=== PATIENT | male | born 1960 | race Caucasian/White ===

== ENCOUNTER 2023-07-21 16:15 | Outpatient (OUT) | payer OTHER, SELFPAY ==
[2023-07-21 18:09] LABS: Prostate Specific Antigen Dx 2.63 ng/mL (<=4.00)
== END 2023-07-21 16:16 | disposition home or self-care (01) ==
LOC: LAB 16:15
PROVIDERS: Visit Provider Urology
DX: N40.1 Benign prostatic hyperplasia with lower urinary tract symptoms (principal)
CPT/HCPCS: 36415; 84153

== ENCOUNTER 2023-09-11 16:00 | Outpatient (OUT) | payer OTHER, SELFPAY ==
[2023-09-11 17:13] LABS: Prostate Specific Antigen Dx 2.86 ng/mL (<=4.00)
== END 2023-09-11 16:01 | disposition home or self-care (01) ==
LOC: LAB 16:02
PROVIDERS: PCP Family Medicine; Visit Provider Nurse Practitioner Family
DX: R97.20 Elevated prostate specific antigen [PSA] (principal)
CPT/HCPCS: 36415; 84153

== ENCOUNTER 2023-12-08 16:05 | Outpatient (OUT) | payer OTHER, SELFPAY ==
--- OUTSIDE RECORDS SUMMARY | 2023-12-08 16:17 | XMS_ITS | CCD ---
Author Organization [facility] ion [facility] Care Team Providers Care 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 Name Role Phone Alejandro Umaña Primary Care Provider [phone] ADA IRWIN Referring Unavailable ALEJANDRO UMAÑA Primary Care Unavailable Alejandro Umaña Primary Care Provider ANGELIQUE ., DR ALVAREZ Admitting Unavailable ANGELIQUE ., DR ALVAREZ Attending Unavailable ANGELIQUE ., DR ALVAREZ Consulting Unavailable ALEJANDRO UMAÑA Attending Unavailable ALEJANDRO UMAÑA Referring Unavailable ALEJANDRO UMAÑA Primary Care Unavailable ALEJANDRO UMAÑA Primary Care Unavailable CHIRRI, JJ Consulting Unavailable SHAY, DIEUDONNE T Admitting Unavailable SHAY, DIEUDONNE T Attending Unavailable SHAY, DIEUDONNE T Consulting Unavailable AFRIDI, FRANSICOAMMAD GEOVANI Consulting Unavaila Chani Herrera Primary Care Provider MD Kim Ortiz Attending Provider MD Alejandro Umaña Primary Care Provider Alejandro Umaña Primary Care Unavailable Kim Otriz Attending Unavailable Kim Ortiz Admitting Unavailable LIVINGOOD, CHANI M Attending Unavailable LIVINGOOD, CHANI M Referring Unavailable LIVINGOOD, CHANI M Primary Care Unavailable CHAS LYNCH Attending Unavailable LIVINGOOD, CHANI M Referring Unavailable LIVINGOOD, CHANI M Primary Care Unavailable LIVINGOOD, CHANI M Attending Unavailable LIVINGOOD, CHANI M Referring Unavailable LIVINGOOD, CHANI M Primary Care Unavailable LIVINGOOD, CHANI M Attending Unavailable LIVINGOOD, CHANI M Referring Unavailable LIVINGOOD, CHANI M Primary Care Unavailable LIVINGOOD, CHANI M Attending Unavailable LIVINGOOD, CHANI M Referring Unavailable LIVINGOOD, CHANI M Primary Care Unavailable Kim ORTIZ Attending Unavailable ARLEN SOUZA Attending Unavailable Allergies Allergy Classification Reported Allergen(s) Allergy Type Date of Onset Reaction(s) Facility (7 sources) MITE EXTRACT Drug Allergy 07-19-2015 [place], [place] (2 sources) house dust allergenic extract; Translations: [HOUSE DUST] Drug Allergy 09-04-2023 [facility] Medications Current Medications Medication Drug Class(es) Dates Sig (Normalized) Sig (Original) [id number] 200 actuat albuterol 0.09 mg/actuat metered dose inhaler (7 sources) beta2-Adrenergic Agonist Start: 06-19-2016 albuterol sulfate HFA (PROAIR HFA) 108 (90 BASE) MCG/ACT inhaler 2 PUFFS QID FOR 7 DAYS THEN PRN 1 Inhaler 0 06/19/2016 Active Start: 06-19-2016 albuterol sulf ate HFA (PROAIR HFA) 108 (90 BASE) MCG/ACT inhaler 2 PUFFS QID FOR 7 DAYS THEN PRN 1 Inhaler 0 06/19/2016 Active ascorbic acid 60 mg / beta carotene 5000 unt / copper sulfate 40 mg / dl-alpha tocopheryl acetate 30 unt / sodium selenite 0.04 mg / zinc oxide 40 mg oral tablet (1 source) Vitamin C take 1 tablet by mouth once daily Multiple Vitamins-Minerals (THERAPEUTIC MULTIVITAMIN-MINERALS) tablet Take 1 tablet by mouth daily 0 Active aspirin 81 mg delayed release oral tablet (3 sources) Platelet Aggregation Inhibitor, Nonsteroidal Anti-inflammatory Drug take 1 tablet by mouth in the morning aspirin 81 mg Take 1 tablet (81 mg total) by mouth in the morning. 0 Active atorvastatin 10 mg oral tablet (1 source) HMG-CoA Reductase Inhibitor take 1 tablet by mouth once daily atorvastatin (LIPITOR) 10 MG tablet Take 10 mg by mouth daily 0 Active blood-glucose meter,continuous (DEXCOM G6 LEATHER SORTER) misc (3 sources) Start: 2022 blood-glucose meter,continuous (DEXCOM G6 LEATHER SORTER) misc Indications: Diabetes mellitus type 1, controlled, insulin dependent (CMS-HCC) 1 Device by miscellaneous route continuously. 1 each 0 09/17/2022 Active blood-glucose sensor (DEXCOM G6 SENSOR) device (3 sources) Start: 2022 blood-glucose sensor (DEXCOM G6 SENSOR) device Indications: Diabetes mellitus type 1, controlled, insulin dependent ([facility]) 1 each by miscellaneous route every 10 days. 10 each 4 09/17/2022 Active blood-glucose transmitter (DEXCOM G6 TRANSMITTER) device (3 sources) Start: 2022 blood-glucose transmitter (DEXCOM G6 TRANSMITTER) device Indications: Diabetes mellitus type 1, controlled, insulin dependent ([facility]) 1 Device by miscellaneous route every 3 (three) months. 1 each 4 09/17/2022 Active chondroitin sulfates 400 mg / glucosamine hydrochloride 500 mg oral capsule (10 sources) glucosamine-magdaleno droitin 500-400 mg capsule Take by mouth. 0 Active Glucosamine-Magdaleno droitin (GLUCOSAMINE CHONDR COMPLEX PO) Take by mouth 0 Active clobetasol propionate 0.0005 mg/mg topical ointment (3 sources) Corticosteroid Start: 07-10-2023 clobetasoL (TEMOVATE) 0.05 % ointment Indications: 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 Apply 1 Application topically in the morning and 1 Application before bedtime. Max 14 days at one interval. 30 g 0 07/10/2023 Active docusate sodium 100 mg oral capsule (6 sources) Start: 09-11-2019 take 1 capsule by mouth twice daily docusate sodium (COLACE) 100 MG capsule Take 1 capsule by mouth 2 times daily 30 capsule 0 09/11/2019 Active 12 hr guaiFENesin 600 mg extended release oral tablet (7 sources) Start: 08-08-2016 take 2 tablets by mouth twice daily guaiFENesin (MUCINEX) 600 MG extended release tablet Take 2 tablets by mouth 2 times daily 40 tablet 0 08/08/2016 Active 3 ml insulin aspart, human 100 unt/ml pen injector (3 sources) Insulin Analog Start: 04-13-2023 inject 30 [IU] by subcutaneous injection once daily at mealtime NovoLOG FlexPen U-100 Insulin 100 unit/mL (3 mL) insulin pen Indications: Type 1 diabetes mellitus with hyperglycemia ([facility]) INJECT 3-7 UNITS UNDER THE SKIN 4 (FOUR) TIMES A DAY WITH MEALS AND NIGHTLY. CARB COUNTING 1-2 UNITS FOR SNACKS. MAX 30 UNITS PER DAY 30 mL 4 04/13/2023 Active 3 ml insulin degludec 100 unt/ml pen injector (1 source) Insulin Analog Start: 09-04-2023 insulin degludec (TRESIBA FLEXTOUCH U-100) 100 unit/mL (3 mL) insulin pen Indications: Diabetes mellitus type 1, controlled, insulin dependent ([facility]) Inject 16 Units under the skin in the morning. 6 mL 0 09/04/2023 Active 3 ml insulin lispro 100 unt/ml pen injector (4 sources) Insulin Analog insulin lispro (HUMALOG KWIKPEN) 100 UNIT/ML pen Inject into the skin 3 times daily (before meals) Sliding scale 150-200: 2 units 201-250: 4 units 251-300: 6 units 301-350: 8 units 351-400: 10 units BS 400 Call 0 Active insulin lispro (HUMALOG KWIKPEN) 100 UNIT/ML pen (3 sources) insulin lispro (HUMALOG KWIKPEN) 100 UNIT/ML pen Inject into the skin 3 times daily (before meals) Sliding scale 150-200: 2 units 201-250: 4 units 251-300: 6 units 301-350: 8 units 351-400: 10 units BS 400 Call 0 Active loratadine 10 mg oral tablet (10 sources) loratadine (CLARITIN) 10 mg tablet Take 1 tablet (10 mg total) by mouth. 0 Active Multiple Vitamins-Minerals (THERAPEUTIC MULTIVITAMIN-HEALTH SAFETY INSTRUCTOR ALS) tablet (6 sources) take 1 tablet by mouth once daily Multiple Vitamins-Minerals (THERAPEUTIC MULTIVITAMIN-MINE RALS) tablet Take 1 tablet by mouth daily 0 Active Multivitamin preparation (3 sources) MULTIVITAMIN (MULTIPLE VITAMINS ORAL) Take by mouth. 0 Active tamsulosin hydrochloride 0.4 mg oral capsule (7 sources) alpha-Adrenergic Jen Start: 09-03-2019 take 1 capsule by mouth once daily tamsulosin (FLOMAX) 0.4 MG capsule Take 1 capsule by mouth daily 30 capsule 0 09/03/2019 Active Completed/Discontinued Medications Medication Drug Class(es) Dates Sig (Normalized) Sig (Original) 3 ml insulin glargine 100 unt/ml pen injector (10 sources) Insulin Analog Start: 11-14-2022 inject 10 [IU] by subcutaneous injection at bedtime insulin glargine (BASAGLAR KWIKPEN U-100 INSULIN) 100 unit/mL (3 mL) insulin pen Indications: Type 1 diabetes mellitus with hyperglycemia ([facility]) Inject 10 Units under the skin in the morning and at bedtime. 15 mL 4 11/14/2022 Active Start: 11-14-2022 End: 09-04-2023 inject 10 [IU] by subcutaneous injection at bedtime insulin glargine (BASAGLAR KWIKPEN U-100 INSULIN) 100 unit/mL (3 mL) insulin pen Indications: Type 1 diabetes mellitus with hyperglycemia ([facility]) Inject 10 Units under the skin in the morning and at bedtime. 15 mL 4 11/14/2022 09/04/2023 Discontinued insulin glargine (BASAGLAR KWIKPEN) 100 UNIT/ML injection pen Inject 10 Units into the skin nightly (8 units in the am, 10 units at night- entered separately for accuracy) 0 Active ioversol (OPTIRAY) 74 % injection 75 mL (1 source) Start: 09-11-2019 End: 09-11-2019 ioversol (OPTIRAY) 74 % injection 75 mL 1 ml ketorolac tromethamine 30 mg/ml cartridge (1 source) Nonsteroidal Anti-inflammatory Drug, Cyclooxygenase Inhibitor Start: 09-03-2019 End: 09-03-2019 ketorolac (TORADOL) injection 30 mg 1000 ml sodium chloride 9 mg/ml injection (5 sources) Start: 10-30-2021 End: 10-30-2021 0.9 % sodium chloride infusion Start: 09-11-2019 sodium chlorid e flush 0.9 % injection 10 mL Start: 09-11-2019 End: 09-11-2019 0.9 % sodium chloride bolus Start: 09-03-2019 End: 09-03-2019 0.9 % sodium chloride bolus Problems Active Problems Problem Classification Problem Date Documented Da te Episodic/Chronic Abdominal pain (1 source) Right lower quadrant pain; Translations: [Abdominal pain, right lower quadrant] Episodic Complications of surgical procedures or medical care (1 source) Vascular complications following infusion, transfusion and therapeutic injection, initial encounter; Translations: [Vascular complications following infusion, transfusion and therapeutic injection, initial encounter] Onset: 3 Episodic Conditions associated with dizziness or vertigo (1 source) Dizziness and giddiness; Translations: [Dizziness and giddiness] Onset: 3 Episodic Diabetes mellitus with complications (3 sources) Hyperglycemia due to type 1 diabetes mellitus; Translations: [Type 1 diabetes mellitus with hyperglycemia] Onset: 3 07-30-2022 Chronic Diabetes mellitus without complication (13 sources) Latent autoimmune diabetes mellitus in adult; Translations: [Other specified diabetes mellitus without complications] Onset: 7 11-27-2016 Chronic Disorders of lipid metabolism (5 sources) Mixed hyperlipidemia; Translations: [Mixed hyperlipidemia] Onset: 3 07-30-2022 Chronic Genitourinary symptoms and ill-defined conditions (1 source) Retention of urine; Translations: [Urinary retention] Episodic Headache; including migraine (1 source) Other headache syndrome; Translations: [Other headache syndrome] Onset: 3 Episodic Hyperplasia of prostate (4 sources) Benign prostatic hyperplasia with lower urinary tract symptoms; Translations: [BENIGN PROSTATIC HYPERPLASIA W/LUTS] Onset: 3 Chronic Occlusion or stenosis of precerebral arteries (3 sources) Stenosis of left vertebral artery; Translations: [Occlusion and stenosis of left vertebral artery] Onset: 3 02-13-2023 Chronic Other ear and sense organ disorders (1 source) Otalgia, right ear; Translations: [Otalgia, right ear] Onset: 4 Episodic Other gastrointestinal disorders (1 source) Constipation; Translations: [Constipation, unspecified constipation type] Episodic Other hereditary and degenerative nervous system conditions (7 sources) Carotidynia; 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] Onset: 6 12-15-2015 Chronic Other screening for suspected conditions (not mental disorders or infectious disease) (1 source) Elevated prostate specific antigen [PSA]; Translations: [Elevated prostate specific antigen [PSA]] Onset: 4 Episodic Phlebitis; thrombophlebitis and thromboembolism (1 source) Phlebitis and thrombophlebitis of unspecified site; Translations: [Phlebitis and thrombophlebitis of unspecified site] Onset: 3 Episodic Superficial injury; contusion (1 source) Abrasion of lower limb; Translations: [Abrasion of left lower extremity, initial encounter] Episodic Unclassified (1 source) Earache Onset: 4 Unclassified (1 source) Medication Reaction Onset: 4 Past or Other Problems Problem Classification Problem Date Documented Da te Episodic/Chronic Allergic reactions (2 sources) 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; Translations: [Other allergy, initial encounter] Onset: 07-10-2023 07-10-2023 Episodic Other ear and sense organ disorders (7 sources) Referred otalgia; Translations: [Otalgia, unspecified ear] Onset: 01-25-2016 01-25-2016 Episodic Other lower respiratory disease (7 sources) Hemoptysis; Translations: [Hemoptysis] Onset: 08-07-2016 08-07-2016 Episodic Other non-traumatic joint disorders (7 sources) Pain in wrist; Translations: [Pain in unspecified wrist] Onset: 08-09-2015 08-09-2015 Episodic Other upper respiratory disease (7 sources) Bronchospasm; Translations: [Acute bronchospasm] Onset: 06-19-2016 06-19-2016 Episodic Other upper respiratory infections (10 sources) Recurrent acute sinusitis; Translations: [Acute recurrent maxillary sinusitis] Onset: 08-09-2015 Resolved: 09-17-2022 08-09-2015 Episodic Pneumonia (except that caused by tuberculosis or sexually transmitted disease) (7 sources) Infective pneumonia; Translations: [Pneumonia, unspecified organism] Onset: 08-07-2016 08-07-2016 Episodic Results Test Name Value Interpretation Reference Range Facility Auth for Release of Medical Recordson 10-21-2023 Auth for Release of Medical Records [id number]# 1.00TIFF [facility] MR prostate wo/w conon 10-06 MR prostate wo/w con [facility] [place] [address] MRI Report Signed Patient: Sd Cardozo MR#: [id number] 68 : 1960 Acct:[id number] Age/Sex: 63 / M ADM Date: 10/03/23 Loc: MR Room: Type: [facility] Attending Dr: Kim Ortiz MD Copies to: Kim Ortiz MD Ordering Provider: Kim Ortiz MD Date of Service: 10/03/23 MR/MR prostate wo/w con: R97.20 EXAMINATION: MR prostate wo/w con HISTORY: Elevated PSA COMPARISON: NONE TECHNIQUE: Multiparametric imaging of the prostate gland was performed with IV contrast. FINDINGS: Prostate Dimensions: 4.1 x 3.6 x 4.0 cm Prostate Volume: 31 mL Peripheral Zone: Heterogenous inT2 signal suggestive of prior prostatitis. No suspicious T2 or ADC map abnormality is identified to suggest prostate malignancy. Central/Transitional Zone: BPH changes. Seminal Vesicles: Unremarkable Neurovascular bundles: Unremarkable. Lymphadenopathy: No evidence of lymphadenopathy. Bladder: No focal lesion. Bowel: The visualized bowel is without acute abnormality. Peritoneal Cavity: Trace free fluid. Bones: No suspicious bony lesion. MR/MR prostate wo/w con IMPRESSION: No MRI evidence of clinically significant prostate cancer. Trace free fluid of uncertain etiology. Impression dictated by: Tc Jurado Jr., D.OTian10/07/2023 9:12 AM Dictation Location: RADIO-PC-15 Transcribed By: [facility] 10/07/23911 Dictated By: Tc Jurado Jr, DO 10/07/23908 Signed By: 10/07/23911 Normal [facility] RAD - MRI Reporton RAD - MRI Report [id number] #1.00TIFF Normal [facility] Creatinine (Bld) [Mass/Vol]O rdered By: Kim Ortiz on 10-03-2023 Creatinine [Mass/Vol] 0.9 mg/dL 0.6-1.3 [facility] Comment on above: ER/ESD physician is notified/shown all ISTAT results.Critical values may be confirmed by laboratory testing ifdeemed necessary by ER attending doctor. ISTAT XRay CREon 10-03-2023 Creatinine [Mass/Vol] 0.9 mg/dL Normal 0.6-1.3 [facility] Comment on above: Result Comment: ER/E SD physician is notified/shown all ISTAT results. Critical values may be confirmed by laboratory testing if deemed necessary by ER attending doctor. Performed By: #### I SCRE #### [address] ISTAT GFR > 60.0 Normal [facility] Comment on above: Result Comment: PERF ORMED BY: [place] [address] PATHOLOGIST DOWEL POINTER JDAA SHAHID M.D. Performed By: #### I SCRE #### [facility] [address] No Panel InformationOrdered By: Kim Ortiz on 10-03-2023 Bedside Estimated GFR (eGFR) > 60.0 [facility] Lab Reportson 09-15-2023 Lab Reports [id number] #1.00TIFF [facility] Physician Referralon 024 Physician Referral [id number] #1.00TIFF [facility] Pre-Certification Formon Pre-Certification Form [id number] #1.00TIFF [facility] Insurance Correspondenceon 0 09-09-2023 Insurance Correspondence [id number] #1.00TIFF [facility] POCT Hemoglobin A1con 2023 HbA1c (Bld) [Mass fraction] 6.8 g/dL 4 - 7 g/dL [facility] Lab Reportson 07-23-2023 Lab Reports [id number] #1.00TIFF [facility] Screenson 07-23-2023 Screens [id number] 1#1.00TIFF [facility] Screens [id number] 0#1.00TIFF [facility] Ambulatory Visit Summaryon 0 07-22-2023 Ambulatory Visit Summary [place] CARDOZO :1960 Visit Date:07/22/2023 Ambulatory Visit Instructions Your Diagnosis Elevated PSA Prostatitis BPH with urinary obstruction Your Care Team Attending Physician - HARLEY GLYNN, ARLEN Olson Primary Care Physician - SHERINE LUNDBERG, ALEJANDRO M This Is Your Medications List sulfamethoxazole-tri methoprim (Bactrim D.S. 800 mg-160 mg Tab) Contact prescribing physician if questions or concerns atorvastatin (atorvastatin 10 mg Tab) glucosamine insulin aspart (NovoLOG FlexPen 100 units/mL injectable solution) insulin glargine (Basaglar KwikPen) multivitamin (Multi Vitamin+) Procedures Performed Cystoscopy (05/18/2009), Colonoscopy. Discharge Vitals Heart Rate (Peripheral) 74 Respiratory Rate 16 Blood Pressure 136/74 Height 178 cm Height 70 in Weight 71 kg Weight 156.2 lb BMI 22.41 What to do next You Need to Schedule the Following Appointments Follow Up with ARLEN SOUZA PA-C, URL When: Where: [address] [place] [address] Medications What How Much When Instructions New sulfamethoxazole-tri methoprim (Bactrim D.S. 800 mg-160 mg Tab) 1 Tablets By Mouth 2 times a day Pickup at [facility] #[id number] Unchanged atorvastatin (atorvastatin 10 mg Tab) Contact prescribing physician if questions or concerns Unchanged glucosamine By Mouth Contact prescribing physician if questions or concerns Unchanged insulin aspart (NovoLOG FlexPen 100 units/ mL injectable solution) Contact prescribing physician if questions or concerns Unchanged insulin glargine (Basaglar KwikPen) Subcutaneous Every day Contact prescribing physician if questions or concerns Unchanged multivitamin (Multi Vitamin+) Contact prescribing physician if questions or concerns Pharmacy Information [facility] #[id number]: [address] [place], [place] [id number] [phone] Allergies No Known Allergies Problems Ongoing - Any problem that you are currently receiving treatment for. BPH with urinary obstruction Diabetes Elevated PSA Prostatitis Patient Survey You may receive a survey via text or e-mail asking about your office visit. Please share your experience with us by completing your survey. We appreciate your feedback and thank you for choosing us for your care. Education Materials Prostatitis Prostatitis is swelling or inflammation of the prostate gland, also called the prostate. This gland is about 1.5 inches wide and 1 inch high, and it is involved in making semen. The prostate is located below a man's bladder, in front of the rectum. There are four types of prostatitis: ? Chronic prostatitis (CP), also called chronic pelvic pain syndrome (CPPS). This is the most common type of prostatitis. It is associated with increased muscle tone in the area between the hip bones (pelvic area), around the prostate. This type is also known as a pelvic floor disorder. ? Chronic bacterial prostatitis. This type usually results from an acute bacterial infection in the prostate gland that keeps coming back or has not been treated properly. The symptoms are less severe than those caused by acute bacterial prostatitis, which lasts a shorter time. ? Asymptomatic inflammatory prostatitis. This type does not have symptoms and does not need treatment. This is diagnosed when tests are done for other disorders of the urinary tract or reproductive tract. ? Acute bacterial prostatitis. This type starts quickly and results from an acute bacterial infection in the prostate gland. It is usually associated with a bladder infection, high fever, and chills. This is the least common type of prostatitis. What are the causes? Bacterial prostatitis is caused by an infection from bacteria. Chronic nonbacterial prostatitis may be caused by: ? Factors related to the nervous system. This system includes thebrain, spinal cord, and nerves. ? An autoimmune response. This happens when the body's disease-fighting system attacks healthy tissue in the body by mistake. ? Psychological factors. These have to do with how the mind works. The causes of the other types of prostatitis are usually not known. What are the signs or symptoms? Symptoms of this condition depend on the type of prostatitis you have. Acute bacterial prostatitis Symptoms may include: ? Pain or burning during urination. ? Frequent and sudden urges to urinate. ? Trouble starting to urinate. ? Fever. ? Chills. ? Pain in your muscles or joints, lower back, or lower abdomen. Other types of prostatitis Symptoms may include: ? Sudden urges to urinate, or urinating often. ? Trouble starting to urinate. ? Weak urine stream. ? Dribbling after urination. ? Discharge coming from the penis. ? Pain in the testicles, the penis, or the tip of the penis. ? Pain in the area in front of the rectum and below the scrotum (perineum). ? Pain when ejacul (more content not included)... Normal [facility] Lab Reportson 07-22-2023 Lab Reports [id number] #1.00TIFF [facility] W[facility] Patient Educationon 07-22-19 24 Patient Education Infectious Disease Prostatitis Prostatitis is swelling or inflammation of the prostate gland, also called the prostate. This gland is about 1.5 inches wide and 1 inch high, and it is involved in making semen. The prostate is located below a man's bladder, in front of the rectum. There are four types of prostatitis: ? Chronic prostatitis (CP), also called chronic pelvic pain syndrome (CPPS). This is the most common type of prostatitis. It is associated with increased muscle tone in the area between the hip bones (pelvic area), around the prostate. This type is also known as a pelvic floor disorder. ? Chronic bacterial prostatitis. This type usually results from an acute bacterial infection in the prostate gland that keeps coming back or has not been treated properly. The symptoms are less severe than those caused by acute bacterial prostatitis, which lasts a shorter time. ? Asymptomatic inflammatory prostatitis. This type does not have symptoms and does not need treatment. This is diagnosed when tests are done for other disorders of the urinary tract or reproductive tract. ? Acute bacterial prostatitis. This type starts quickly and results from an acute bacterial infection in the prostate gland. It is usually associated with a bladder infection, high fever, and chills. This is the least common type of prostatitis. What are the causes? Bacterial prostatitis is caused by an infection from bacteria. Chronic nonbacterial prostatitis may be caused by: ? Factors related to the nervous system. This system includes thebrain, spinal cord, and nerves. ? An autoimmune response. This happens when the body's disease-fighting system attacks healthy tissue in the body by mistake. ? Psychological factors. These have to do with how the mind works. The causes of the other types of prostatitis are usually not known. What are the signs or symptoms? Symptoms of this condition depend on the type of prostatitis you have. Acute bacterial prostatitis Symptoms may include: ? Pain or burning during urination. ? Frequent and sudden urges to urinate. ? Trouble starting to urinate. ? Fever. ? Chills. ? Pain in your muscles or joints, lower back, or lower abdomen. Other types of prostatitis Symptoms may include: ? Sudden urges to urinate, or urinating often. ? Trouble starting to urinate. ? Weak urine stream. ? Dribbling after urination. ? Discharge coming from the penis. ? Pain in the testicles, the penis, or the tip of the penis. ? Pain in the area in front of the rectum and below the scrotum (perineum). ? Pain when ejaculating. How is this diagnosed? This condition may be diagnosed based on: ? A physical and medical exam. ? A digital rectal exam. For this, the health care provider may use a finger to feel the prostate. ? A urine test to check for bacteria. ? A semen sample or blood tests. ? Ultrasound. ? Urodynamic tests to check how your body handles urine. ? Cystoscopy to look inside your bladder or inside the part of your body that drains urine from the bladder (urethra). How is this treated? Treatment for this condition depends on the type of prostatitis. Treatment may involve: ? Medicines to relieve pain or inflammation, or to help relax your muscles. ? Physical therapy. ? Heat therapy. ? Biofeedback. These techniques help you control certain body functions. ? Relaxation exercises. ? Antibiotic medicine, if your condition is caused by bacteria. ? Sitz baths. These warm water baths help to relax your pelvic floor muscles, which helps to relieve pressure on the prostate. Follow these instructions at home: Medicines ? Take jlkw-pbh-spwumvl and prescription medicines only as told by your health care provider. ? If you were prescribed an antibiotic medicine, take it as told by your health care provider. Do not stop using the antibiotic even if you start to feel better. Managing pain and swelling ? Take sitz baths as directed by your health care provider. For a sitz bath, sit in warm water that is deep enough to cover your hips and buttocks. ? If directed, apply heat to the affected area as often as told by your health care provider. Use the heat source that your health care provider recommends, such as a moist heat pack or a heating pad. ? Place a towel between your skin and the heat source. ? Leave the heat on for 20?30 minutes. ? Remove the heat if your skin turns bright red. This is especially important if you are unable to feel pain, heat, or cold. You may have a greater risk of getting burned. General instructions ? Do exercises as told by your health care provider, if you were prescribed physical therapy, biofeedback, or relaxation exercises. ? Keep all follow-up visits as told by your health care provider. This is important. Where to find more information ? National [place] of Diabetes and Digestive and Kidney Diseases: (more content not included)... Normal [facility] Urology Office/Clinic Noteon 07-22-2023 Urology Office/Clinic Note Chief Complaint 1 year with PSA HPI Staff 63 yea old male here for 1 year with PSA. Previous DX: BPH w/LUTS. PSA 2.63 done 07/21/23, previous PSA 1.91 done 08/06/22. Pt. was not able to give a urine sample today. Dysuria: no Incomplete bladder emptying: no Hematuria: no Frequency: no Urgency: no Nocturia:2x's Stream: good stream Post void dripping: no Wearing pads/ Depends: no Urge incontinence: no Stress incontinence: no Incontinence without Sensory Awareness: o Abdominal pain: no Flank pain: no History of Present Illness staff HPI reviewed and agree. Review of Systems PHQ Score Initial Depression Screen Score: 0 SCORE no fever, chills, malaise, myalgia. no rash/lesions. no chest pain, palpitations, or SOB. no abdominal pain, nausea, vomiting. no unilateral calf swelling, redness, pain Physical Exam Vitals & Measurements HR: 74(Peripheral) RR: 16 BP: 136/74 HT: 70 in HT: 178 cm WT: 71 kg WT: 156.2 lb BMI: 22.41 General: nontoxic, NAD Mouth: moist mucosa Lungs: normal respiratory effort Cardio: regular rate, good distal perfusion Abdomen: nondistended, no suprapubic distention or tenderness, no CVA tenderness Neurologic: Grossly normal Skin: No rashes or suspicious lesions Assessment/Plan Dr. Ortiz pt Labs 06/06/23: Cr 0.96 eGFR 90 DAYNA 19 1. Elevated PSA (R97.20: Elevated prostate specific antigen [PSA]) PSA: 11/05/19 - 1.74 06/12/21 - 1.90 08/06/22 - 1.91 07/21/23 - 2.63 He has an elevated PSA, which could indicate prostate cancer, prostate infection, prostate inflammation without infection, prostate manipulation, or benign prostate enlargement (BPH). The importance of the rate of PSA rise has also been discussed. The options for management have been discussed, including prostate biopsy versus close monitoring of the PSA over time. Denies family hx of prostate cancer. Rise in PSA is unfavorable. -2 wks abx in case of subclinical infection. then repeat PSA in 6 wks. -Further workup will be indicated if PSA remains elevated following abx course (repeat PSA in 3 mos vs prostate MRI/select MDX now). If PSA goes down, then can either repeat in 6 or 12 mos. Call pt w results and plan. 2. Prostatitis (N41.9: Inflammatory disease of prostate, unspecified) No UA provided today. Asymptomatic. Rise in PSA could be due to prostatitis/inflamma tory changes. Will prescribe a short course of abx and repeat PSA within 6 weeks. -Start Bactrim DS bid x 2 weeks -Take w/ food and start a probiotic -see #1 3. BPH with urinary obstruction (N40.1: Benign prostatic hyperplasia with lower urinary tract symptoms) No UA provided today. Pt previously d/c Flomax due to SE of lip tingling. IPSS 3, QoL 0. No urinary concerns. Pt is currently taking no bladder/prostate medication and is highly satisfied with overall symptom control. No indication for treatment at this time. Continue to monitor. Follow-up With When Contact Information HARLEY GLYNN, ARLEN Olson, URL [address] [place] [address] Additional Instructions: Follow up pending PSA Patient Education Prostatitis Documentation recorded by the moi Daley accurately reflects the services(s) I performed and decisions made by me. Authenticated by Arlen Souza PA-C on 07/22/2023 15:44:43. Joy Rome, personally scribed for Arlen Souza PA-C on 07/22/2023 15:31:58. . Problem List/Past Medical History Ongoing BPH with urinary obstruction Diabetes Elevated PSA Prostatitis Historical No qualifying data Procedure/Surgical History Cystoscopy (05/18/2009), Colonoscopy. Medications atorvastatin 10 mg Tab Basaglar KwikPen, SubCutaneous, Daily glucosamine, Oral Multi Vitamin+ NovoLOG FlexPen 100 units/mL injectable solution Allergies No Known Allergies Social History Tobacco Never (less than 100 in lifetime) Tobacco Use:., 07/22/2023 Family History Hypertension: Mother and Brother. Immunizations Vaccine Date Status influenza virus vaccine, inactivated 04/2023 Recorded SARS-CoV-2 (COVID-19) Ad26 vaccine 03/2021 Recorded SARS-CoV-2 (COVID-19) Ad26 vaccine 08/2020 Recorded Normal [facility] Comment on above: Result Comment: Elec tronically Signed By: ARLEN SOUZA PA-C\.br\Date and Time Signed: 07/22/23 15:46 EST\.br\Electronically Co-Signed By: Joy Daley\.br\Date and Time Co-Signed: 07/22/23 15:32 EST Basic Metabolic Profon 11-26 Anion gap [Moles/Vol] 10 mmol/L Normal 9-17 [facility] Comment on above: Performed By: #### EMILE MURRAY, CBC #### [facility] [place] [address] Dental Laboratory Technology Teacher: Edgardo Hutchins DO Calcium [Mass/Vol] 8.9 mg/dL Normal 8.6-10.4 [facility] Comment on above: Performed By: #### EMILE MURRAY, CBC #### [facility] [address] [place] [address] Dental Laboratory Technology Teacher: Edgardo Hutchins DO Chloride [Moles/Vol] 105 mmol/L Normal 98-107 [facility] Comment on above: Performed By: #### EMILE MURRAY, CBC #### [facility] [address] [place] [address] Dental Laboratory Technology Teacher: Edgardo Hutchins DO CO2 [Moles/Vol] 26 mmol/L Normal 20-31 [facility] Comment on above: Performed By: #### EMILE MURRAY, CBC #### [facility] [address] [place] [address], [place] [address] Dental Laboratory Technology Teacher: Edgardo Hutchins DO Creatinine [Mass/Vol] 0.82 mg/dL Normal 0.70-1.20 [facility] Comment on above: Performed By: #### EMILE MURRAY, CBC #### [facility] [address] [place] [address]. [place] [address] Dental Laboratory Technology Teacher: Edgardo Hutchins DO GFR/1.73 sq M.predicted among non-blacks MDRD (S/P/Bld) [Vol rate/Area] mL/min/{1.73_m2} Normal >60 [facility] Comment on above: Result Comment: These results are not intended for use in patients <18 years of age. eGFR results are calculated without a race factor using the 2020 CKD-EPI equation. Careful clinical correlation is recommended, particularly when comparing to results calculated using previous equations. The CKD-EPI equation is less accurate in patients with extremes of muscle mass, extra-renal metabolism of creatine, excessive creatine ingestion, or following therapy that affects renal tubular secretion. Performed By: #### EMILE MURRAY, CBC #### [facility] [address] [place] [address]. [place] [address] Dental Laboratory Technology Teacher: Edgardo Hutchins DO Glucose [Mass/Vol] 190 mg/dL High 70-99 [facility] Comment on above: Performed By: #### EMILE MURRAY, CBC #### [facility] [address] [place] [address]. [place] [address] Dental Laboratory Technology Teacher: Edgardo Hutchins DO Potassium [Moles/Vol] 4.2 mmol/L Normal 3.7-5.3 [facility] Comment on above: Performed By: #### EMILE MURRAY, CBC #### [facility] [address] [place] [address]. [place] [address] Dental Laboratory Technology Teacher: Edgardo Hutchins DO Sodium [Moles/Vol] 141 mmol/L Normal 135-144 [facility] Comment on above: Performed By: #### EMILE MURRAY, CBC #### [facility] [address] [place] [address] Dental Laboratory Technology Teacher: Edgardo Hutchins DO Urea nitrogen [Mass/Vol] 16 mg/dL Normal 8-23 [facility] Comment on above: Performed By: #### EMILE MURRAY, CBC #### [facility] [address] [place] [address] Dental Laboratory Technology Teacher: Edgardo Hutchins DO CBCon 11-26-2022 Erythrocyte distribution width (RBC) [Ratio] 13.4 % Normal 11.5-14.9 [facility] Comment on above: Performed By: #### EMILE MURRAY, CBC #### [facility] [place] [address] Dental Laboratory Technology Teacher: Edgardo Hutchins DO Hematocrit (Bld) [Volume fraction] 41.4 % Normal 41-53 [facility] Comment on above: Performed By: #### EMILE MURRAY, CBC #### [facility] [place] [address] Dental Laboratory Technology Teacher: Edgardo Hutchins DO Hemoglobin (Bld) [Mass/Vol] 14.0 g/dL Normal 13.5-17.5 [facility] Comment on above: Performed By: #### EMILE MURRAY, CBC #### [facility] [place] [address] Dental Laboratory Technology Teacher: Edgardo Hutchins DO MCH (RBC) [Entitic mass] 30.5 pg Normal 26-34 [facility] Comment on above: Performed By: #### EMILE MURRAY, CBC #### [facility] [address] [facility] [place] [address] Dental Laboratory Technology Teacher: Edgardo Hutchins DO MCHC (RBC) [Mass/Vol] 33.9 g/dL Normal 31-37 [facility] Comment on above: Performed By: #### EMILE MURRAY, CBC #### [facility] [place] [address] Dental Laboratory Technology Teacher: Edgardo Hutchins DO MCV (RBC) [Entitic vol] 90.0 fL Normal 80-[address] [facility] Comment on above: Performed By: #### EMILE MURRAY, CBC #### [facility] [place] [address] Dental Laboratory Technology Teacher: Edgardo Hutchins DO Platelet mean volume (Bld) [Entitic vol] 7.9 fL Normal 6.0-12.0 [facility] Comment on above: Performed By: #### EMILE MURRAY, CBC #### [facility] [address] [place] [address]. [place] [address] Dental Laboratory Technology Teacher: Edgardo Hutchins DO Platelets (Bld) [#/Vol] 198 10*3/uL Normal 150-450 [facility] Comment on above: Performed By: #### EMILE MURRAY, CBC #### [facility] [address] [place] [address] Dental Laboratory Technology Teacher: Edgardo Hutchins DO RBC (Bld) [#/Vol] 4.60 10*6/uL Normal 4.5-5.9 [facility] Comment on above: Performed By: #### EMILE MURRAY, CBC #### [facility] [place] [address] Dental Laboratory Technology Teacher: Edgardo Hutchins DO WBC (Bld) [#/Vol] 7.9 10*3/uL Normal 3.5-11.0 [facility] Comment on above: Performed By: #### EMILE MURRAY, CBC #### [facility] [place] [address] Dental Laboratory Technology Teacher: Edgardo Hutchins DO MRI BRAIN W WO CONTRASTon MRI BRAIN W WO CONTRAST EXAMINATION: MRI OF THE BRAIN WITHOUT AND WITH CONTRAST 11/26/2022 9:00 am TECHNIQUE: Multiplanar multisequence MRI of the head/brain was performed without and with the administration of intravenous contrast. COMPARISON: CT angiogram neck 11/25/2022 HISTORY: ORDERING SYSTEM PROVIDED HISTORY: L caodaism POZO, dizziness, L V4 vertebral artery stenosis 70% TECHNOLOGIST PROVIDED HISTORY: L caodaism POZO, dizziness, L V4 vertebral artery stenosis 70% What is the sedation requirement?->None Decision Support Exception - unselect if not a suspected or confirmed emergency medical condition->Emergency Medical Condition (MA) Reason for Exam: L caodaism POZO, dizziness, L V4 vertebral artery stenosis 70% FINDINGS: INTRACRANIAL STRUCTURES/VENTRICLE S: There is no acute infarct. No mass effect or midline shift. No evidence of an acute intracranial hemorrhage. The ventricles and sulci are normal in size and configuration. The sellar/suprasellar regions appear unremarkable. The normal signal voids within the major intracranial vessels appear maintained. No abnormal focus of enhancement is seen within the brain. ORBITS: The visualized portion of the orbits demonstrate no acute abnormality. SINUSES: The visualized paranasal sinuses and mastoid air cells demonstrate no acute abnormality. BONES/SOFT TISSUES: The bone marrow signal intensity appears normal. The soft tissues demonstrate no acute abnormality. IMPRESSION: Unremarkable exam RECOMMENDATIONS: Unavailable Interpreted by: Parker Mayo MD Signed by: Parker Mayo MD 11/26/22 Final result Normal [facility] Troponinon 11-26-2022 Troponin, High Sens 11 ng/L Normal 0-22 [facility] Comment on above: Result Comment: High Sensitivity Troponin values cannot be compared with other Troponin methodologies. Performed By: #### T ROPI, BMP, CBC #### [facility] [address] [place] [address] Dental Laboratory Technology Teacher: Edgardo Hutchins DO Basic Metab w/rfx MGon 11-25 Anion gap [Moles/Vol] 9 mmol/L Normal 9-17 [facility] Comment on above: Performed By: #### C DP, SED, BMPX, CRP #### [facility] [address] [facility] [place] [address] Dental Laboratory Technology Teacher: Edgardo Hutchins DO Calcium [Mass/Vol] 9.3 mg/dL Normal 8.6-10.4 [facility] Comment on above: Performed By: #### C DP, SED, BMPX, CRP #### [facility] [place] [address] Dental Laboratory Technology Teacher: Edgardo Hutchins DO Chloride [Moles/Vol] 102 mmol/L Normal 98-107 [facility] Comment on above: Performed By: #### C DP, SED, BMPX, CRP #### [facility] [place] [address] Dental Laboratory Technology Teacher: Edgardo Hutchins DO CO2 [Moles/Vol] 28 mmol/L Normal 20-31 [facility] Comment on above: Performed By: #### C DP, SED, BMPX, CRP #### [facility] [place] [address] Dental Laboratory Technology Teacher: Edgardo Hutchins DO Creatinine [Mass/Vol] 0.74 mg/dL Normal 0.70-1.20 [facility] Comment on above: Performed By: #### C DP, SED, BMPX, CRP #### [facility] [place] [address] Dental Laboratory Technology Teacher: Edgardo Hutchins DO GFR/1.73 sq M.predicted among non-blacks MDRD (S/P/Bld) [Vol rate/Area] mL/min/{1.73_m2} Normal >60 [facility] Comment on above: Result Comment: These results are not intended for use in patients <18 years of age. eGFR results are calculated without a race factor using the 2020 CKD-EPI equation. Careful clinical correlation is recommended, particularly when comparing to results calculated using previous equations. The CKD-EPI equation is less accurate in patients with extremes of muscle mass, extra-renal metabolism of creatine, excessive creatine ingestion, or following therapy that affects renal tubular secretion. Performed By: #### C DP, SED, BMPX, CRP #### [facility] [address] [facility] [place] [address] Dental Laboratory Technology Teacher: Edgardo Hutchins DO Glucose [Mass/Vol] 221 mg/dL High 70-99 [facility] Comment on above: Performed By: #### C DP, SED, BMPX, CRP #### [facility] [address] [facility] [place] [address] Dental Laboratory Technology Teacher: Edgardo Hutchins DO Potassium [Moles/Vol] 4.0 mmol/L Normal 3.7-5.3 [facility] Comment on above: Performed By: #### C DP, SED, BMPX, CRP #### [facility] [address] [place] [address]. [place] [address] Dental Laboratory Technology Teacher: Edgardo Hutchins DO Sodium [Moles/Vol] 139 mmol/L Normal 135-144 [facility] Comment on above: Performed By: #### C DP, SED, BMPX, CRP #### [facility] [address] [place] [address]. [place] [address] Dental Laboratory Technology Teacher: Edgardo Hutchins DO Urea nitrogen [Mass/Vol] 18 mg/dL Normal 8-23 [facility] Comment on above: Performed By: #### C DP, SED, BMPX, CRP #### [facility] [place] [address] Dental Laboratory Technology Teacher: Edgardo Hutchins DO C-Reactive Proteinon 023 CRP [Mass/Vol] mg/L Normal 0.0-5.0 [facility] Comment on above: Performed By: #### C DP, SED, BMPX, CRP #### [facility] [address] [place] [address] [place] [address] Dental Laboratory Technology Teacher: Edgardo Hutchins DO CBC with Diffon 11-25-2022 Abs. Basophil 0.10 k/uL Normal 0.0-0.2 [facility] Comment on above: Performed By: #### C DP, SED, BMPX, CRP #### [facility] [place] [address] Dental Laboratory Technology Teacher: Edgardo Hutchins DO Abs.Neutrophil (Seg) 4.90 k/uL Normal 1.3-9.1 [facility] Comment on above: Performed By: #### C DP, SED, BMPX, CRP #### [facility] [address] [place] [address] Dental Laboratory Technology Teacher: Edgardo Hutchins DO Basophils/100 WBC (Bld) 1 % Normal 0-2 [facility] Comment on above: Performed By: #### C DP, SED, BMPX, CRP #### [facility] [address] [place] [address] Dental Laboratory Technology Teacher: Edgardo Hutchins DO Eosinophils (Bld) [#/Vol] 0.20 10*3/uL Normal 0.0-0.4 [facility] Comment on above: Performed By: #### C DP, SED, BMPX, CRP #### [facility] [address] [place] [address] Dental Laboratory Technology Teacher: Edgardo Hutchins DO Eosinophils/100 WBC (Bld) 2 % Normal 0-4 [facility] Comment on above: Performed By: #### C DP, SED, BMPX, CRP #### [facility] [address] [place] [address] Dental Laboratory Technology Teacher: Edgardo Hutchins DO Erythrocyte distribution width (RBC) [Ratio] 13.3 % Normal 11.5-14.9 [facility] Comment on above: Performed By: #### C DP, SED, BMPX, CRP #### [facility] [place] [address] Dental Laboratory Technology Teacher: Edgardo Hutchins DO Hematocrit (Bld) [Volume fraction] 39.6 % Low 41-53 [facility] Comment on above: Performed By: #### C DP, SED, BMPX, CRP #### [facility] [place] [address] Dental Laboratory Technology Teacher: Edgardo Hutchins DO Hemoglobin (Bld) [Mass/Vol] 13.1 g/dL Low 13.5-17.5 [facility] Comment on above: Performed By: #### C DP, SED, BMPX, CRP #### [facility] [address] [place] [address] Dental Laboratory Technology Teacher: Edgardo Hutchins DO Lymphocytes (Bld) [#/Vol] 1.80 10*3/uL Normal 1.0-4.8 [facility] Comment on above: Performed By: #### C DP, SED, BMPX, CRP #### [facility] [address] [place] [address] Dental Laboratory Technology Teacher: Edgardo Hutchins DO Lymphocytes/100 WBC (Bld) 24 % Normal 24-44 [facility] Comment on above: Performed By: #### C DP, SED, BMPX, CRP #### [facility] [address] [place] [address] Dental Laboratory Technology Teacher: Edgardo Hutchins DO MCH (RBC) [Entitic mass] 29.7 pg Normal 26-34 [facility] Comment on above: Performed By: #### C DP, SED, BMPX, CRP #### [facility] [address] [place] [address] Dental Laboratory Technology Teacher: Edgardo Hutchins DO MCHC (RBC) [Mass/Vol] 33.2 g/dL Normal 31-37 [facility] Comment on above: Performed By: #### C DP, SED, BMPX, CRP #### [facility] [place] [address] Dental Laboratory Technology Teacher: Edgardo Hutchins DO MCV (RBC) [Entitic vol] 89.5 fL Normal 80-100 [facility] Comment on above: Performed By: #### C DP, SED, BMPX, CRP #### [facility] [place] [address] Dental Laboratory Technology Teacher: Edgardo Hutchins DO Monocytes (Bld) [#/Vol] 0.60 10*3/uL Normal 0.1-1.3 [facility] Comment on above: Performed By: #### C DP, SED, BMPX, CRP #### [facility] [address] [place] [address] Dental Laboratory Technology Teacher: Edgardo Hutchins DO Monocytes/100 WBC (Bld) 8 % High 1-7 [facility] Comment on above: Performed By: #### C DP, SED, BMPX, CRP #### [facility] [address] [place] [address] Dental Laboratory Technology Teacher: Edgardo Hutchins DO Neutrophil (Seg) 65 % Normal 36-66 [facility] Comment on above: Performed By: #### C DP, SED, BMPX, CRP #### [facility] [address] [place] [address] Dental Laboratory Technology Teacher: Edgardo Hutchins DO Platelet mean volume (Bld) [Entitic vol] 7.8 fL Normal 6.0-12.0 [facility] Comment on above: Performed By: #### C DP, SED, BMPX, CRP #### [facility] [address] [place] [address] Dental Laboratory Technology Teacher: Edgardo Hutchins DO Platelets (Bld) [#/Vol] 212 10*3/uL Normal 150-450 [facility] Comment on above: Performed By: #### C DP, SED, BMPX, CRP #### [facility] [address] [place] [address] Dental Laboratory Technology Teacher: Edgardo Hutchins DO RBC (Bld) [#/Vol] 4.42 10*6/uL Low 4.5-5.9 [facility] Comment on above: Performed By: #### C DP, SED, BMPX, CRP #### [facility] [address] [place] [address] Dental Laboratory Technology Teacher: Edgardo Hutchins DO WBC (Bld) [#/Vol] 7.5 10*3/uL Normal 3.5-11.0 [facility] Comment on above: Performed By: #### C DP, SED, BMPX, CRP #### [facility] [address] [place] [address] Dental Laboratory Technology Teacher: Edgardo Hutchins DO CT HEAD WO CONTRASTon 2022 CT HEAD WO CONTRAST EXAMINATION: CT OF THE HEAD WITHOUT CONTRAST 11/25/2022 7:48 pm TECHNIQUE: CT of the head was performed without the administration of intravenous contrast. Automated exposure control, iterative reconstruction, and/or weight based adjustment of the mA/kV was utilized to reduce the radiation dose to as low as reasonably achievable. COMPARISON: None. HISTORY: ORDERING SYSTEM PROVIDED HISTORY: L sided temporal POZO waxing and waning, worst at onset, dizziness episodes worse with position change TECHNOLOGIST PROVIDED HISTORY: L sided temporal POZO waxing and waning, worst at onset, dizziness episodes worse with position change Decision Support Exception - unselect if not a suspected or confirmed emergency medical condition->Emergency Medical Condition (MA) Reason for Exam: L sided temporal POZO waxing and waning, worst at onset, dizziness episodes worse with position change Additional signs and symptoms: c/o headache, dizziness, and scalp sensitivity x 2-3 days FINDINGS: BRAIN/VENTRICLES: There is no acute intracranial hemorrhage, mass effect or midline shift. No abnormal extra-axial fluid collection. The wolfe-white differentiation is maintained without evidence of an acute infarct. There is no evidence of hydrocephalus. ORBITS: The visualized portion of the orbits demonstrate no acute abnormality. SINUSES: The visualized paranasal sinuses and mastoid air cells demonstrate no acute abnormality. SOFT TISSUES/SKULL: No acute abnormality of the visualized skull or soft tissues. IMPRESSION: No acute intracranial abnormality. Interpreted by: Katherin Galindo DO Signed by: Katherin Galindo DO 11/25/22 Final result Normal [facility] CTA HEAD NECK W CONTRASTon 0 11-25-2022 CTA HEAD NECK W CONTRAST EXAMINATION: CTA OF THE HEAD AND NECK WITH CONTRAST 11/25/2022 7:49 pm: TECHNIQUE: CTA of the head and neck was performed with the administration of intravenous contrast. Multiplanar reformatted images are provided for review. MIP images are provided for review. Stenosis of the internal carotid arteries measured using NASCET criteria. Automated exposure control, iterative reconstruction, and/or weight based adjustment of the mA/kV was utilized to reduce the radiation dose to as low as reasonably achievable. COMPARISON: CT head from earlier today HISTORY: ORDERING SYSTEM PROVIDED HISTORY: dizziness episodes yesterday, POZO worst at onset, no vision changes TECHNOLOGIST PROVIDED HISTORY: dizziness episodes yesterday, POZO worst at onset, no vision changes Decision Support Exception - unselect if not a suspected or confirmed emergency medical condition->Emergency Medical Condition (MA) Reason for Exam: dizziness episodes yesterday, POZO worst at onset, no vision changes Additional signs and symptoms: c/o headache, dizziness, and scalp sensitivity x 2-3 days FINDINGS: CTA NECK: AORTIC ARCH/ARCH VESSELS: No dissection or arterial injury. No significant stenosis of the brachiocephalic or subclavian arteries. CAROTID ARTERIES: No dissection, arterial injury, or hemodynamically significant stenosis by NASCET criteria. VERTEBRAL ARTERIES: No dissection, arterial injury, or significant stenosis. SOFT TISSUES: The lung apices are clear. No cervical or superior mediastinal lymphadenopathy. The larynx and pharynx are unremarkable. No acute abnormality of the salivary and thyroid glands. BONES: No acute osseous abnormality. CTA HEAD: ANTERIOR CIRCULATION: No significant stenosis of the intracranial internal carotid, anterior cerebral, or middle cerebral arteries. No aneurysm. POSTERIOR CIRCULATION: There is 70% stenosis at the origin of V4 segment of the left vertebral artery. No significant stenosis of the right vertebral, basilar, or posterior cerebral arteries. No aneurysm. OTHER: No dural venous sinus thrombosis on this non-dedicated study. BRAIN: No mass effect or midline shift. No extra-axial fluid collection. The wolfe-white differentiation is maintained. IMPRESSION: 70% stenosis at the origin of V4 segment of the left vertebral artery. Otherwise, no acute abnormality or flow-limiting stenosis in the remainder of the major arteries of the head and neck. Interpreted by: Kash Gonzalez MD Signed by: Kash Gonzalez MD 11/25/22 Final result Normal [facility] Sedimentation Rateon 023 Sedimentation Rate 3 mm/Hr Normal 0-20 [facility] Comment on above: Performed By: #### C DP, SED, BMPX, CRP #### [facility] [address] [place] [address] Dental Laboratory Technology Teacher: Edgardo Hutchins DO POC Glucose Fingerstickon Glucose [Mass/Vol] 145 mg/dL High 75 - 110 mg/dL [facility] Interpretation and review of laboratory results Abnormal [facility] Microalb.,Random Uron 2021 Creatinine [Mass/Vol] 59.2 mg/dL Normal 39.0-259.0 [facility] Comment on above: Performed By: #### U RNMAB #### [address] [id number] Dental Laboratory Technology Teacher: Gregory Brizuela MD Microalb/Creat Ratio Can not be calculated Normal <17 [facility] Comment on above: Performed By: #### U RNMAB #### [address] [place], [place] [id number] Dental Laboratory Technology Teacher: Gregory Brizuela MD Microalbumin conc. <12 Normal <21 [facility] Comment on above: Performed By: #### U RNMAB #### [address] [id number] Dental Laboratory Technology Teacher: Gregory Brizuela MD Microalbumin, Uron 2 Albumin/Creatinine DL <= 20 mg/L (24H U) [Mass ratio] <12 <21 mg/L [facility] Albumin/Creatinine DL <= 20 mg/L (U) [Ratio] Can not be calculated <17 mcg/mg creat [facility] Creatinine [Mass/Vol] 59.2 mg/dL 39.0 - 259.0 mg/dL [facility] WRIST LEFT 3 VWSon 1 WRIST LEFT 3 VWS [facility] Department of Radiology [address] [place] [id number] Patient Name: SD CARDOZO : 1960 Sex: M Age: Race: White Pt. Location: Patient Status: Ordered Date: 09/07/2020 1:35:00 PM Completed Date: 09/07/2020 04:06 PM Requesting Provider: NIKKY CAMARENA Attending Provider: Report Copy To: Signs & Symptoms: S52.502D Unsp fx the low end left rad, subs for clos fx w routn heal I10 History: Comments: Evaluate Exam: WRIST LEFT 3 VWS WRIST LEFT 3 VWS 09/07/2020 4:06 PM CLINICAL INDICATIONS: S52.502D Unsp fx the low end left rad, subs for clos fx w routn heal I10 TECHNOLOGIST COMMENTS: left wrist pain and left 5th metacarpal QUESTION FOR THE RADIOLOGIST: Evaluate PROTOCOL: AP,Lateral and Oblique views were obtained. COMPARISON: August 10, 2020 FINDINGS: Degenerative changes in the distal radioulnar joint space. Distal radial fracture demonstrates progressive healing with maturation of callus formation in this area. IMPRESSION: Less discrete fracture lines identified through the distal radius is seen on the oblique and posterior view. Electronically signed: Oscar Chao. Transcribed by: [email or web address], User Resident: Electronically Signed by: OSCAR CHAO @ 09/07/2020 04:24 PM Normal [facility] Comment on above: Order Comment: Evalu ate WRIST LEFT 3 VWSon 1 WRIST LEFT 3 S [facility] Department of Radiology [address] [place] [phone] Patient Name: SD CARDOZO : 1960 Sex: M Age: Race: White Pt. Location: Patient Status: O Ordered Date: 08/10/2020 1:45:00 PM Completed Date: 08/10/2020 01:47 PM Requesting Provider: NIKKY CAMARENA Attending Provider: NIKKY CAMARENA Report Copy To: Signs & Symptoms: S62.002A Unsp fracture of navicular bone of left wrist, init I10 History: [place] Comments: Exam: WRIST LEFT 3 VWS WRIST LEFT 3 S CLINICAL INFORMATION: Pt stated he injured and fracture his left wrist x 2 weeks ago. VIEWS: AP,Lateral and Oblique views were obtained. COMPARISON: None. IMPRESSION: 1. Cortical irregularity of the dorsal aspect of the distal radius consistent with fracture with soft tissue swelling noted. No carpal alignment abnormalities. Subchondral cysts are noted. Electronically signed: Liana Lamar. Transcribed by: [email or web address], User Resident: Electronically Signed by: LIANA AL @ 08/10/2020 04:09 PM Normal [facility] COMPREHENSIVE METABOLIC PANE L WITH GFRon 04-29-2020 Albumin [Mass/Vol] 4.4 g/dL Normal 3.2-5.3 [facility] Comment on above: Result Comment: Test performed at [facility] [address] [place] [address] CLIA Number [id number] ------- [facility] [address] [place] [address] CLIA No. [id number] CAP Accreditation No. [id number] Plating Department Helper: Dane Torres M.D. Performed By: #### 2 72, 560, 453 #### [facility] Unless Otherwise Noted [address] [place] [address] / COLA #4824/CLIA # [id number] ALK PHOS 69 U/L Normal 39-130 [facility] Comment on above: Performed By: #### 2 53, 503, 971 #### [facility] Unless Otherwise Noted [address] [place] [address] / COLA #0324/CLIA # [id number] ALT [Catalytic activity/Vol] 23 U/L Normal 0-40 [facility] Comment on above: Performed By: #### 2 24, , 905 #### [facility] Unless Otherwise Noted [address] [address] / COLA #4724/CLIA # [id number] Anion gap [Moles/Vol] 7 mmol/L Normal 5-15 [facility] [place] Comment on above: Performed By: #### 2 , , 905 #### [facility] Unless Otherwise Noted [address] [address] / COLA #4724/CLIA # [id number] AST-SGOT 21 U/L Normal 0-41 [facility] Comment on above: Performed By: #### 2 , , 903 #### [facility] Unless Otherwise Noted [address] [address] / COLA #4724/CLIA # [id number] Bilirubin.direct [Mass/Vol] 0.4 mg/dL Normal 0.3-1.2 [facility] Comment on above: Performed By: #### 2 , , 90 #### [facility] Unless Otherwise Noted [address] [address] / COLA #4724/CLIA # [id number] Calcium [Mass/Vol] 9.3 mg/dL Normal 8.5-10.5 [facility] Comment on above: Performed By: #### 2 , , 905 #### [facility] Unless Otherwise Noted [address] [address] / COLA #4724/CLIA # [id number] Chloride [Moles/Vol] 102 mmol/L Normal 98-109 [facility] Comment on above: Performed By: #### 2 , #### [facility] Unless Otherwise Noted 2100 [facility] 100 [place] [address] / COLA #4724/CLIA # [id number] CO2 [Moles/Vol] 31 mmol/L Normal 22-32 [facility] Comment on above: Performed By: #### 2 , #### [facility] Unless Otherwise Noted [address] [address] / COLA #4724/CLIA # [id number] Creatinine [Mass/Vol] 0.99 mg/dL Normal 0.60-1.30 [facility] Comment on above: Result Comment: METH OD TRACEABLE TO IDMS STANDARD Performed By: #### 2 , #### [facility] [place] Unless Otherwise Noted [address] [address] / COLA #4724/CLIA # [id number] GFR/1.73 sq M predicted among blacks MDRD (S/P/Bld) [Vol rate/Area] mL/min/{1.73_m2} Normal >59 [facility] Comment on above: Performed By: #### 2 , #### [facility] Unless Otherwise Noted 2100 [facility] 100 [place] [address] / COLA #4724/CLIA # [id number] GFR/1.73 sq M predicted among non-blacks MDRD (S/P/Bld) [Vol rate/Area] mL/min/{1.73_m2} Normal >59 [facility] Comment on above: Performed By: #### 2 , 905 #### [facility] Unless Otherwise Noted 2099 [facility] 100 [place] [address] / COLA #4724/CLIA # [id number] Glucose [Mass/Vol] 111 mg/dL High 65-99 [facility] Comment on above: Performed By: #### 2 , , 905 #### [facility] Unless Otherwise Noted [address] [address] / COLA #4724/CLIA # [id number] Potassium [Moles/Vol] 4.2 mmol/L Normal 3.5-5.0 [facility] Comment on above: Performed By: #### 2 , , 904 #### [facility] Unless Otherwise Noted [address] [address] / COLA #4724/CLIA # [id number] Protein [Mass/Vol] 6.7 g/dL Normal 6.0-8.0 [facility] Comment on above: Performed By: #### 2 , , 905 #### [facility] Unless Otherwise Noted [address] [address] / COLA #4724/CLIA # [id number] Sodium [Moles/Vol] 140 mmol/L Normal 134-146 [facility] Comment on above: Performed By: #### 2 , , 905 #### [facility] Unless Otherwise Noted [address] [address] / COLA #4724/CLIA # [id number] Urea nitrogen [Mass/Vol] 15 mg/dL Normal 5-23 [facility] Comment on above: Performed By: #### 2 , , 905 #### [facility] Unless Otherwise Noted 2099 [facility] 100 [place] [address] / COLA #3824/CLIA # [id number] LIPID PANEL WITH REFLEX TO D IRECT LDLon 04-29-2020 Cholesterol [Mass/Vol] 153 mg/dL Normal 150-200 [facility] Comment on above: Performed By: #### 2 , , 905 #### [facility] Unless Otherwise Noted [address] [address] / COLA #3424/CLIA # [id number] Cholesterol in LDL/Cholesterol in HDL [Mass ratio] 1.2 Normal <3.5 [facility] Comment on above: Performed By: #### 2 , , 906 #### [facility] Unless Otherwise Noted [address] [address] / COLA #7924/CLIA # [id number] Cholesterol.total/Kanika sterol in HDL [Mass ratio] 2.4 {ratio} Normal 1.0-5.0 [facility] Comment on above: Result Comment: Test performed at [facility] [address] [place] [address] CLIA Number [id number] ------- Performed By: #### 2 , , 905 #### [facility] Unless Otherwise Noted [address] [address] / COLA #4724/CLIA # [id number] HDL-CHOL 65 mg/dL Normal >39 [facility] Comment on above: Result Comment: HDL <40 mg/dL - High Risk HDL > or = 40mg/dL- Desirable HDL >60 mg/dL - Negative Risk Performed By: #### 2 , , 907 #### [facility] [place] Unless Otherwise Noted [address] [place] [address] / COLA #4724/CLIA # [id number] LDL-CHOL, CALCULATED 76 mg/dL Normal <130 [facility] Comment on above: Result Comment: LDL <100 mg/dL - Desirable LDL >160 mg/dL - High Risk Performed By: #### 2 , , 296 #### [facility] Unless Otherwise Noted [address] [place] [address] / COLA #4724/CLIA # [id number] Triglyceride [Mass/Vol] 58 mg/dL Normal 27-150 [facility] Comment on above: Performed By: #### 2 , , 054 #### [facility] Unless Otherwise Noted [address] [place] [address] / COLA #4724/CLIA # [id number] VLDL-CHOL, CALCULATED 12 mg/dL Normal 0-30 [facility] Comment on above: Performed By: #### 2 , 701 #### [facility] Unless Otherwise Noted [address]100 [facility] 100 [place] [address] / COLA #4724/CLIA # [id number] MICROALBUMIN, RANDOM SPECon 04-29-2020 Creatinine [Mass/Vol] 38.65 mg/dL Normal [facility] Comment on above: Performed By: #### 2 , , 5 #### [facility] Unless Otherwise Noted [address] [address] / COLA #4724/CLIA # [id number] Creatinine [Mass/Vol] SEE NOTE Normal 0.0-30.0 [facility] Comment on above: Result Comment: NOT CALCULATED Result for Albumin/Creatinine Ratio cannot be reliably calculated because urine albumin and or urine creatinine is below the detection limit of the assay. Performed at [facility] [address] [address] Performed By: #### 2 , 637 #### [facility] Unless Otherwise Noted [address] [address] / COLA #7524/CLIA # [id number] MICROALBUMIN <0.7 Normal 0.0-1.9 [facility] Comment on above: Performed By: #### 2 , #### [facility] Unless Otherwise Noted [address] [address] / COLA #4724/CLIA # [id number] Fecal lactoferrinon 10-15-19 20 Lactoferrin, Qual Negative NEGATIVE f or fecal lactoferrin. [place], [place] Rotavirus Antigen, Stoolon 0 10-15-2019 Direct Exam Negative [place] Special Requests NOT REPORTED [place] Specimen Description .FECES [place], [place] SPECIMEN REJECTIONon 020 Ordered Test OBN [place], [place] Reason for Rejection Unable to perform testing: Specimen age beyond stability limit. [place] Specimen source Nom (Unsp spec) .STOOL [place] - NOT REPORTED [place], [place] C-Reactive Proteinon 020 CRP [Mass/Vol] mg/L 0 - 5 mg/L [place] CBC Auto Differentialon 08-15 Basophils (Bld) [#/Vol] 0.00 10*3/uL [place] Basophils/100 WBC (Bld) 1 % 0 - 2 % [place] Differential Type NOT REPORTED [place] Eosinophils (Bld) [#/Vol] 0.30 10*3/uL [place] Eosinophils/100 WBC (Bld) 4 % 0 - 4 % [place] Erythrocyte distribution width (RBC) [Ratio] 13.4 % 11.5 - 14.9 % [place] Hematocrit (Bld) [Volume fraction] 44.1 % 41 - 53 % [place] Hemoglobin (Bld) [Mass/Vol] 14.6 g/dL 13.5 - 17.5 g/dL [place] Interpretation and review of laboratory results Abnormal [place] Lymphocytes (Bld) [#/Vol] 1.80 10*3/uL [place] Lymphocytes/100 WBC (Bld) 28 % 24 - 44 % [place] MCH (RBC) [Entitic mass] 30.1 pg 26 - 34 pg [place] MCHC (RBC) [Mass/Vol] 33.1 g/dL 31 - 37 g/dL [place] MCV (RBC) [Entitic vol] 90.8 fL 80 - 100 fL [place] Monocytes (Bld) [#/Vol] 0.60 10*3/uL [place] Monocytes/100 WBC (Bld) 10 % High 1 - 7 % [place] Platelet mean volume (Bld) [Entitic vol] 7.8 fL 6 - 12 fL [facility] JASSON Platelets (Bld) [#/Vol] 220 10*3/uL [facility] Platelets (Bld) [#/Vol] NOT REPORTED [facility] RBC (Bld) [#/Vol] 4.85 10*6/uL 4.5 - 5.9 m/uL [facility]ASSON RBC morphology finding Nom (Bld) NOT REPORTED [facility] Segmented neutrophils/100 WBC (Bld) 57 % 36 - 66 % [facility] Segs Absolute 3.80 [place], [place] WBC (Bld) [#/Vol] NOT REPORTED per 100 WBC [facility] WBC (Bld) [#/Vol] 6.5 10*3/uL [facility] WBC Morphology NOT REPORTED [place], [place] CT ABDOMEN PELVIS W IV CONTR AST Additional Contrast? Noneon 09-11-2019 Reinaldo, M[facility] Incoming Radiant Results From [email or web address] - 09/11/2019 10:39 AM EDT EXAMINATION: CT OF THE ABDOMEN AND PELVIS WITH CONTRAST 09/11/2019 10:03 am TECHNIQUE: CT of the abdomen and pelvis was performed with the administration of intravenous contrast. Multiplanar reformatted images are provided for review. Dose modulation, iterative reconstruction, and/or weight based adjustment of the mA/kV was utilized to reduce the radiation dose to as low as reasonably achievable. COMPARISON: CT scan of the abdomen and pelvis from 09/03/2019 HISTORY: ORDERING SYSTEM PROVIDED HISTORY: RLQ pain TECHNOLOGIST PROVIDED HISTORY: RLQ pain Reason for Exam: right lower quadrant pain, worse today than the last 3 weeks Acuity: Acute Type of Exam: Initial FINDINGS: Lower Chest: Visualized lung bases clear. Organs: Solid upper abdominal organs unchanged, again with a tiny hypodensity right hepatic and prominent pancreatic duct, but no suspicious focal abnormality. Mildly distended gallbladder without stones or CT evidence cholecystitis. No dilatation biliary tree. Symmetric renal perfusion. GI/Bowel: Large amount of retained stool, mostly ascending and transverse colon, similar to the previous study without abnormal dilatation. Appendix within normal limits. Pelvis: Urinary bladder unremarkable. Nonenlarged prostate with calcifications. No pelvic fluid collection or mass. Peritoneum/Retroperi toneum: Vascular structures appear unremarkable. Retroaortic left renal vein. Patent visceral vessels. Prominent-mildly enlarged but unchanged mesenteric lymph nodes. No bulky lymphadenopathy. Bones/Soft Tissues: No acute bony abnormality; mild degenerative changes T10-T12 with slight wedging T11. IMPRESSION: No acute CT finding in the abdomen or pelvis. No obstructive uropathy. No CT evidence of appendicitis. Persistent moderate constipation, mostly ascending and transverse colon. Correlate with patient pain. Additional unchanged findings, as above. [place], [place] No acute CT finding in the abdomen or pelvis. No obstructive uropathy. No CT evidence of appendicitis. Persistent moderate constipation, mostly ascending and transverse colon. Correlate with patient pain. Additional unchanged findings, as above. [place] EXAMINATION: CT OF THE ABDOMEN AND PELVIS WITH CONTRAST 09/11/2019 10:03 am TECHNIQUE: CT of the abdomen and pelvis was performed with the administration of intravenous contrast. Multiplanar reformatted images are provided for review. Dose modulation, iterative reconstruction, and/or weight based adjustment of the mA/kV was utilized to reduce the radiation dose to as low as reasonably achievable. COMPARISON: CT scan of the abdomen and pelvis from 09/03/2019 HISTORY: ORDERING SYSTEM PROVIDED HISTORY: RLQ pain TECHNOLOGIST PROVIDED HISTORY: RLQ pain Reason for Exam: right lower quadrant pain, worse today than the last 3 weeks Acuity: Acute Type of Exam: Initial FINDINGS: Lower Chest: Visualized lung bases clear. Organs: Solid upper abdominal organs unchanged, again with a tiny hypodensity right hepatic and prominent pancreatic duct, but no suspicious focal abnormality. Mildly distended gallbladder without stones or CT evidence cholecystitis. No dilatation biliary tree. Symmetric renal perfusion. GI/Bowel: Large amount of retained stool, mostly ascending and transverse colon, similar to the previous study without abnormal dilatation. Appendix within normal limits. Pelvis: Urinary bladder unremarkable. Nonenlarged prostate with calcifications. No pelvic fluid collection or mass. Peritoneum/Retroperi toneum: Vascular structures appear unremarkable. Retroaortic left renal vein. Patent visceral vessels. Prominent-mildly enlarged but unchanged mesenteric lymph nodes. No bulky lymphadenopathy. Bones/Soft Tissues: No acute bony abnormality; mild degenerative changes T10-T12 with slight wedging T11. [place] Comprehensive Metabolic Pane yung 09-11-2019 Albumin [Mass/Vol] 4.3 g/dL 3.5 - 5.2 g/dL [place] Albumin/Globulin [Mass ratio] NOT REPORTED [place] ALP [Catalytic activity/Vol] 71 U/L 40 - 129 U/L [place] ALT [Catalytic activity/Vol] 20 U/L 5 - 41 U/L [place] Anion gap [Moles/Vol] 12 mmol/L 9 - 17 mmol/L [place] AST [Catalytic activity/Vol] 24 U/L <40 [place] Bilirubin Ql (U) 0.42 mg/dL 0.3 - 1.2 mg/dL [place] Bun/Cre Ratio NOT REPORTED [place] Calcium [Mass/Vol] 9.0 mg/dL 8.6 - 10. 4 mg/dL [place] Chloride [Moles/Vol] 101 mmol/L 98 - 10 7 mmol/L [place] CO2 [Moles/Vol] 26 mmol/L 20 - 31 mmol/L [place] Creatinine [Mass/Vol] 0.79 mg/dL 0.7 - 1.2 mg/dL [place] GFR >60 >60 mL/min [place] GFR Non- >60 >60 mL/min [place] GFR/1.73 sq M predicted among non-blacks MDRD (S/P/Bld) [Vol rate/Area] [place] Comment on above: Average GFR for 50-5 9 years old: 93 mL/min/1.73sq m Chronic Kidney Disease: <60 mL/min/1.73sq m Kidney failure: <15 mL/min/1.73sq m eGFR calculated using average adult body mass. Additional eGFR calculator available at: http://www.[employer]/multiple_crcl_2012.htm GFR/1.73 sq M predicted among non-blacks MDRD (S/P/Bld) [Vol rate/Area] NOT REPORTED [place] Glucose [Mass/Vol] 168 mg/dL High 70 - 99 mg/dL [place] Potassium [Moles/Vol] 4.1 mmol/L 3.7 - 5.3 mmol/L [place] Protein [Mass/Vol] 7.3 g/dL 6.4 - 8.3 g/dL [place] Sodium [Moles/Vol] 139 mmol/L 135 - 144 mmol/L [place] Urea nitrogen [Mass/Vol] 15 mg/dL 6 - 20 mg/dL [place] LACTATE DEHYDROGENASEon 08-15 LD 161 U/L 135 - 225 U/L [place] Lipaseon 09-11-2019 Lipase [Catalytic activity/Vol] 12 U/L Low 13 - 60 U/L [place] Otheron 09-11-2019 Interpretation and review of laboratory results Abnormal [place] Immature granulocytes (Bld) [#/Vol] NOT REPORTED 0 % [place] Urinalysison 09-11-2019 Bilirubin Urine Negative [facility]IVE [facility] [place] Color, UA YELLOW YELLOW [place] Glucose, Ur Negative NEGATIVE [place] Interpretation and review of laboratory results Abnormal [place] Ketones Ql (U) SMALL Abnormal NEGATIVE [place] Leukocyte esterase Test strip Ql (U) Negative NEGATIVE [place] Nitrite, Urine Negative NEGATIVE [place] pH, UA 6.0 [place] Protein (U) [Mass/Vol] Negative NEGATIVE [place] Specific [place], UA 1.043 High [place] Turbidity UA CLEAR CLEAR [place] Urinalysis Comments Microscopic exam not performed based on chemical results unless requested in original order. [place] Urine Hgb Negative NEGATIVE [place] Urobilinogen, Urine Normal Normal [place] CBC with DIFFon 09-03-2019 Basophils (Bld) [#/Vol] 0.10 10*3/uL [place] Basophils/100 WBC (Bld) 1 % 0 - 2 % [place] Differential Type NOT REPORTED [place] Eosinophils (Bld) [#/Vol] 0.10 10*3/uL [place] Eosinophils/100 WBC (Bld) 2 % 0 - 4 % [place] Erythrocyte distribution width (RBC) [Ratio] 13.1 % 11.5 - 14.9 % [place] Hematocrit (Bld) [Volume fraction] 39.9 % Low 41 - 53 % [place] Hemoglobin (Bld) [Mass/Vol] 13.5 g/dL 13.5 - 17.5 g/dL [place] Interpretation and review of laboratory results Abnormal [place] Lymphocytes (Bld) [#/Vol] 1.50 10*3/uL [place] Lymphocytes/100 WBC (Bld) 23 % Low 24 - 44 % [place] MCH (RBC) [Entitic mass] 30.0 pg 26 - 34 pg [place] MCHC (RBC) [Mass/Vol] 33.9 g/dL 31 - 37 g/dL [place] MCV (RBC) [Entitic vol] 88.7 fL 80 - 100 fL [place] Monocytes (Bld) [#/Vol] 0.60 10*3/uL [place] Monocytes/100 WBC (Bld) 10 % High 1 - 7 % [place] Platelet mean volume (Bld) [Entitic vol] 7.8 fL 6 - 12 fL [place] Platelets (Bld) [#/Vol] 232 10*3/uL [place] Platelets (Bld) [#/Vol] NOT REPORTED [place] RBC (Bld) [#/Vol] 4.49 10*6/uL Low 4.5 - 5.9 m/uL [place] RBC morphology finding Nom (Bld) NOT REPORTED [place] Segmented neutrophils/100 WBC (Bld) 64 % 36 - 66 % [place] Segs Absolute 4.30 [place] WBC (Bld) [#/Vol] NOT REPORTED per 100 WBC [place] WBC (Bld) [#/Vol] 6.6 10*3/uL [place] WBC Morphology NOT REPORTED [place] Comprehensive Metabolic Pane yung 09-03-2019 Albumin [Mass/Vol] 4.2 g/dL 3.5 - 5.2 g/dL [place] Albumin/Globulin [Mass ratio] NOT REPORTED [place] ALP [Catalytic activity/Vol] 76 U/L 40 - 129 U/L [place] ALT [Catalytic activity/Vol] 19 U/L 5 - 41 U/L [place] Anion gap [Moles/Vol] 12 mmol/L 9 - 17 mmol/L [place] AST [Catalytic activity/Vol] 19 U/L <40 [place] Bilirubin Ql (U) 0.25 mg/dL Low 0.3 - 1.2 mg/dL [place] Bun/Cre Ratio NOT REPORTED [place] Calcium [Mass/Vol] 8.9 mg/dL 8.6 - 10. 4 mg/dL [place] Chloride [Moles/Vol] 97 mmol/L Low 98 - 10 7 mmol/L [place] CO2 [Moles/Vol] 27 mmol/L 20 - 31 mmol/L [place] Creatinine [Mass/Vol] 0.7 mg/dL 0.7 - 1.2 mg/dL [place] GFR >60 >60 mL/min [place] GFR Non- >60 >60 mL/min [place] GFR/1.73 sq M predicted among non-blacks MDRD (S/P/Bld) [Vol rate/Area] NOT REPORTED [place] GFR/1.73 sq M predicted among non-blacks MDRD (S/P/Bld) [Vol rate/Area] [place] Comment on above: Average GFR for 50-5 9 years old: 93 mL/min/1.73sq m Chronic Kidney Disease: <60 mL/min/1.73sq m Kidney failure: <15 mL/min/1.73sq m eGFR calculated using average adult body mass. Additional eGFR calculator available at: http://www.[employer]/multiple_crcl_2012.htm Glucose [Mass/Vol] 245 mg/dL High 70 - 99 mg/dL [place] Interpretation and review of laboratory results Abnormal [place] Potassium [Moles/Vol] 4.5 mmol/L 3.7 - 5.3 mmol/L [place] Protein [Mass/Vol] 7.0 g/dL 6.4 - 8.3 g/dL [place] Sodium [Moles/Vol] 136 mmol/L 135 - 144 mmol/L [place] Urea nitrogen [Mass/Vol] 17 mg/dL 6 - 20 mg/dL [place] Otheron 09-03-2019 Immature granulocytes (Bld) [#/Vol] NOT REPORTED 0 % [place] Urinalysis Reflex to Culture on 09-03-2019 Bilirubin Urine Negative NEGATIVE [place] Color, UA YELLOW YELLOW [place] Glucose, Ur Negative NEGATIVE [place] Ketones Ql (U) Negative NEGATIVE [place] Leukocyte esterase Test strip Ql (U) Negative NEGATIVE [place] Nitrite, Urine Negative NEGATIVE [place] pH, UA 7.0 [place] Protein (U) [Mass/Vol] Negative NEGATIVE [place] Specific [place], UA 1.003 [place], [place] Turbidity UA CLEAR CLEAR [place] Urinalysis Comments Microscopic exam not performed based on chemical results unless requested in original order. [place] Urine Hgb Negative NEGATIVE [place] Urobilinogen, Urine Normal Normal [place] Vital Signs Date Time Vital Sign Value Performing Clinician Moses dunlap 09-04-2023 15:01-0400 Body height 175.3 cm Chani Louiemikel GARZON Work Phone: [facility] 09-04-2023 15:01-0400 Body mass index (BMI) [Ratio] 22.88 kg/m2 Chani Weinberg APRN-WELD FITTER Work Phone: [employer] 09-04-2023 15:01-0400 Body temperature 98.1 [degF] Chani Weinberg APRN-WELD FITTER [facility] 09-04-2023 15:01-0400 Body weight 70.31 kg Chani Weinberg APRN-WELD FITTER [facility] 09-04-2023 15:01-0400 Diastolic blood pressure 82 mm[Hg] Chani Weinberg APRN-WELD FITTER [facility] 09-04-2023 15:01-0400 Heart rate 76 /min Chani Weinberg APRN-WELD FITTER [facility] 09-04-2023 15:01-0400 SaO2% (BldA) [Mass fraction] 96 % Chani Weinberg APRN-WELD FITTER Work [facility] 09-04-2023 15:01-0400 Systolic blood pressure 130 mm[Hg] Chani Weinberg APRN-WELD FITTER [facility] 07-10-2023 14:56-0500 Body height 175.3 cm Chani Weinberg APRN-WELD FITTER [facility] 07-10-2023 14:56-0500 Body mass index (BMI) [Ratio] 23.09 kg/m2 Chani Weinberg APRN-WELD FITTER [facility] 07-10-2023 14:56-0500 Body temperature 98.4 [degF] Chani Weinberg APRN-WELD FITTER Work [facility] 07-10-2023 14:56-0500 Body weight 70.94 kg Chani Weinberg APRN-WELD FITTER Work Phone: [facility] [employer] 07-10-2023 14:56-0500 Diastolic blood pressure 82 mm[Hg] Chani Weinberg POLICE BOOKING OFFICER-WELD FITTER Work Phone: [facility] 07-10-2023 14:56-0500 Heart rate 84 /min Chani Weinberg POLICE BOOKING OFFICER-WELD FITTER Work Phone: [facility] 07-10-2023 14:56-0500 SaO2% (BldA) [Mass fraction] 97 % Chani Weinberg POLICE BOOKING OFFICER-WELD FITTER Work Phone: [facility] 07-10-2023 14:56-0500 Systolic blood pressure 122 mm[Hg] Chani Weinberg POLICE BOOKING OFFICER-WELD FITTER Work Phone: [facility] 10-30-2021 13:49-0400 Body temperature 97.11 [degF] Colton [facility]ero MD [facility] 10-30-2021 13:49-0400 Diastolic blood pressure 63 mm[Hg] Colton Romero MD Work Phone: [employer] 10-30-2021 13:49-0400 Heart rate 60 /min Colton Romero MD [facility] 10-30-2021 13:49-0400 Respiratory rate 12 /min Colton Romero [facility] 10-30-2021 13:49-0400 SaO2% (BldA) [Mass fraction] 99 % Colton Romero MD Work Phone: [employer] 10-30-2021 13:49-0400 Systolic blood pressure 116 mm[Hg] Colton Romero MD Work Phone: [employer] 10-30-2021 11:30-0400 Body height 177.8 cm Colton [facility]ero [facility] 10-30-2021 11:30-0400 Body mass index (BMI) [Ratio] 22.24 kg/m2 Colton Romero MD Work Phone: [employer] 10-30-2021 11:30-0400 Body weight 70.31 kg Colton Romero MD [facility] 10-18-2021 14:21-0400 Body height 177.8 cm [facility] [employer] 10-18-2021 14:21-0400 Body mass index (BMI) [Ratio] 22.24 kg/m2 [facility] [employer] 10-18-2021 14:21-0400 Body weight 70.31 kg [facility] [employer] 07-31-2020 18:54-0500 BMI (Body Mass Index) 22.96 kg/m2 [employer] Work Phone: 07-31-2020 18:54-0500 Body Temperature 98.1 [degF] [employer] Work Phone: 07-31-2020 18:54-0500 Body weight 72.58 kg [employer] Work Phone: 07-31-2020 18:54-0500 Height 177.8 cm [employer] Work Phone: 07-31-2020 18:54-0500 Pulse (Heart Rate) 82 /min [employer] Work Phone: 07-31-2020 18:54-0500 Pulse Oximetry 97 % [employer] Work Phone: 07-31-2020 18:54-0500 Respiratory Rate 18 /min [employer] Work Phone: 09-11-2019 09:26-0400 BMI (Body Mass Index) 22.96 kg/m2 [place] 09-11-2019 09:26-0400 Body Temperature 97.5 [degF] [facility] 09-11-2019 09:26-0400 Body weight 72.58 kg [place] 09-11-2019 09:26-0400 BP Diastolic 87 mm[Hg] [facility] , [place] 09-11-2019 09:26-0400 BP Systolic 144 mm[Hg] [facility] [place] 09-11-2019 09:26-0400 Height 177.8 cm [facility] [place] 09-11-2019 09:26-0400 Pulse (Heart Rate) 92 /min [facility] 09-11-2019 09:26-0400 Pulse Oximetry 99 % Freddie [facility] , [place] 09-11-2019 09:26-0400 Respiratory Rate 14 /min Freddie [facility] 09-03-2019 14:07-0400 BMI (Body Mass Index) 22.53 kg/m2 Tello [facility] 09-03-2019 14:07-0400 Body Temperature 97.81 [degF] [place] 09-03-2019 14:07-0400 Body weight 71.22 kg [place] 09-03-2019 14:07-0400 BP Diastolic 93 mm[facility]Hg[facility] [place] 09-[facility]-[place] 14:07-0400 BP Systolic 153 mm[Hg] [place] 09-03-2019 14:07-0400 Pulse (Heart Rate) 75 /min [place]ello [facility] 09-03-2019 14:07-0400 Pulse Oximetry 100 % [place] 09-03-2019 14:07-0400 Respiratory Rate 14 /min [place] Encounters Encounter Date Encounter Type Care Provider Facility Start: 12-22-2023 ambulatory Kim Stanley ty:[facility]ok Start: 10-16-2023 End: 10-16-2023 ambulatory CHANI WEINBERG [facility] Start: 10-06-2023 End: 10-06-2023 ambulatory CHAS LYNCH [facility] Start: 10-03-2023 End: 10-03-2023 ambulatory Alejandro Umaña Facility:[facility] Start: 10-03-2023 End: 10-03-2023 ambulatory MD Alejandro Umaña Work Phone: [facility] Work Phone: Start: 10-03-2023 End: 10-03-2023 Patient encounter procedure MD Alejandro Umaña Work Phone: [facility] [place] Work Phone: Start: 09-04-2023 End: 09-04-2023 ambulatory [facility] Start: 09-04-2023 End: 09-04-2023 Office outpatient visit 40 minutes [facility] POLICE BOOKING OFFICER-WELD FITTER Work Phone: [facility] Comment on above: Diabetes mellitus ty pe 1, controlled, insulin dependent (CMS- HCC) (Primary Dx); Mixed hyperlipidemia Start: 08-19-2023 Documentation procedure Tong Daugherty [facility] Work Phone: [facility] Start: 07-22-2023 End: 07-23-2023 ambulatory ARLEN SOUZA [facility] Start: 07-10-2023 End: 07-10-2023 ambulatory [facility] Start: 07-10-2023 End: 07-10-2023 Office outpatient visit 40 minutes [facility] POLICE BOOKING OFFICER-WELD FITTER Work Phone: [facility] Comment on above: Diabetes mellitus ty pe 1, controlled, insulin dependent (CMS- HCC) (Primary Dx); 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 Facility:[facility] Start: 10-30-2021 End: 10-30-2021 Subsequent hospital visit by physician Colton Romero MD Work Phone: [facility] Start: 10-18-2021 End: 10-22-2021 Subsequent hospital visit by physician Juhi Zuniga 4 [facility] Pre[facility]Admit [facility] Start: 10-11-2021 End: 10-12-2021 [facility]ulatory [facility] Start: 10-11-2021 End: 10-11-2021 Subsequent hospital visit by physician Alejandro Umaña Other Phone: [facility] Start: 07-31-2020 End: 07-31-2020 Emergency department patient visit Sebastian Allen Work Phone: [facility] Comment on above: Abrasion of left low er extremity, initial encounter (Primary Dx) Start: 10-15-2019 End: 10-15-2019 Subsequent hospital visit by physician Alejandro BERMUDEZ Laboratory Start: 09-11-2019 End: 09-11-2019 Emergency department patient visit Freddie Feliz Work Phone: [facility] Comment on above: Abdominal pain, righ t lower quadrant (Primary Dx); Constipation, unspecified constipation type Start: 09-03-2019 End: 09-03-2019 Emergency department patient visit Tello Simpson Work Phone: [facility] Comment on above: Urinary retention (P rimary Dx) Procedures Date Procedure Procedure Detail Performing Clinician Start: 09-04-2023 Follow-up visit Follow-up CHANI WEINBERG Start: 09-04-2023 Hemoglobin glycosyla eden a1c Chani Weinberg POLICE BOOKING OFFICER-WELD FITTER Work Phone: Start: 06-06-2023 Microalbumin [Mass/v olume] in Urine by Test strip Chani Weinberg POLICE BOOKING OFFICER-WELD FITTER Work Phone: Start: 08-06-[address] MAURICE ORTIZ . Comment on above: Performed By: #### P SAD #### [facility] [address] [place] [address] Dr. Katherine Matute Start: 10-30-2021 Glucose blood reagen t strip Colton Romero MD Work Phone: Start: 10-11-2021 Urine albumin quantitative Ada A Giovana CPNP Work Phone: Start: 10-15-2019 Iaad ia rotavirus Alejandro Umaña Other Phone: Start: 10-15-2019 Lactoferrin fecal qualitative Alejandro Umaña Other Phone: Start: 10-15-2019 SPECIMEN REJECTION Shobha Umaña Other Phone: Start: 09-11-2019 Urnls dip stick/tabl et rgnt auto w/o microscopy Freddie Feliz Work Phone: Start: 09-11-2019 Ct abdomen & pelvis w/contrast material Freddie Feliz Work Phone: Start: 09-11-2019 Assay of lipase Freddie de leon Work Phone: Start: 09-11-2019 Blood count complete auto&auto difrntl wbc Freddie Feliz Work Phone: Start: 09-11-2019 C-reactive protein Frank Feliz Work Phone: Start: 09-11-2019 Comprehensive metabo lic panel Freddie Feliz Work Phone: Start: 09-11-2019 Lactate dehydrogenase ldh Freddie Feliz Work Phone: Start: 09-03-2019 Urnls dip stick/tabl et rgnt auto w/o microscopy Tello Simpson Work Phone: Start: 09-03-2019 Ct abdomen & pelvis w/o contrast material Tello Simpson Work Phone: Start: 09-03-2019 Blood count complete auto&auto difrntl wbc Tello Simpson Work Phone: Start: 09-03-2019 Comprehensive metabo lic panel Tello Simpson Work Phone: Start: 07-17-2014 Colonoscopy Alejandro galan Other Phone: Plan of Treatment Date Care Activity Detail Author Start: 2027 Pneumococcal 0-64 years Vaccine (3 - PPSV23 or PCV20) Pneumococcal 0-64 years Vaccine (3 - PPSV23 or PCV20) [facility] Start: 09-03-2024 Adult BMI Screening Adult BMI Screening [facility] Start: 09-03-2024 Tobacco Screening Tobacco Screening [facility] Start: 07-17-2024 Colon cancer screen colonoscopy Colon cancer screen [place] Start: 07-17-2024 Screening for malignant neoplasm of colon [facility] Start: 07-10-2024 Adult BMI Screening Adult BMI Screening [facility] Start: 07-10-2024 Tobacco Screening Tobacco Screening [facility] Start: 06-06-2024 Adult BMI Screening Adult BMI Screening [facility] Start: 06-06-2024 Urine screening for protein Urine Microalbumin [facility] Start: 02-14-2024 Diabetic foot examination Diabetic Foot Exam [facility] Start: 10-16-2023 End: 10-16-2023 Patient encounter procedure 10/16/2023 3:00 PM EDT Office Visit [facility] [address] [place] [address] Chani Weinberg, POLICE BOOKING OFFICER-WELD FITTER [address] [place] [address] [facility] Start: 10-03-2023 MR Prostate WO and W contrast IV [facility] Start: 10-03-2023 MR prostate wo/w con MR prostate wo/w con [facility] Start: 09-04-2023 End: 09-04-2023 Patient encounter procedure 09/04/2023 3:00 PM EDT Office Visit [facility] [address] [place] [address] Chani Weinberg, POLICE BOOKING OFFICER-WELD FITTER [address] [place] [address] [facility] Start: 02-14-2023 Influenza vaccination Influenza Vaccine [facility] Start: 10-11-2022 Urine screening for protein Diabetic microalbuminuria test [facility] Start: 10-03-2022 Lipid panel Lipids [facility] Start: 02-14-2022 Influenza vaccination Flu vaccine (Season Ended) [facility] Start: 10-30-2021 End: 10-30-2021 Colonoscopy flx dx w/collj spec when pfrmd COLORECTAL CANCER SCREENING, NOT HIGH RISK SCREEN FOR COLON CANCER 10/30/2021 12:05 PM EDT [facility] Start: 10-30-2021 End: 10-30-2021 Admission to same day surgery center 10/30/2021 Surgery IP Unit Colton Romero MD [address] [place] [address] COLORECTAL CANCER SCREENING, NOT HIGH RISK [facility] Comment on above: COLORECTAL CANCER SCREENING, NOT HIGH RI SK Start: 10-30-2021 End: 10-30-2021 Colonoscopy flx dx w/collj spec when pfrmd COLORECTAL CANCER SCREENING, NOT HIGH RISK SCREEN FOR COLON CANCER 10/30/2021 7:30 AM EDT [facility] Start: 10-30-2021 Subsequent hospital visit by physician 10/30/2021 Hospital Encounter IP Unit Colton Romero MD [address] [place] [address] [facility] Start: 06-19-2021 DTaP/Tdap/Td vaccine (1 - Tdap) DTaP/Tdap/Td vaccine (1 - Tdap) [facility] [place] Comment on above: Postponed from 1981 (Patient Refus ed) Start: 06-19-2021 Hepatitis C screen Hepatitis C [place] Comment on above: Postponed from 1962 (Patient Refus ed) Start: 06-19-2021 Hepatitis C screening Hepatitis C screen [place] Comment on above: Postponed from 1962 (Patient Refus ed) Start: 06-19-2021 HIV screen HIV screen [place] Comment on above: Postponed from 1977 (Patient Refus ed) Start: 06-19-2021 HIV screening HIV screen [place] Comment on above: Postponed from 1977 (Patient Refus ed) Start: 03-02-2021 COVID-19 Vaccine (3 - Booster for Pfizer series) COVID-19 Vaccine (3 - Booster for Pfizer series) [facility] Start: 02-15-2020 Influenza vaccination Flu vaccine (Season Ended) [place] Start: 02-14-2019 Influenza vaccination Flu vaccine (#1) [place] Start: 08-22-2017 Pneumococcal 0-64 years Vaccine (2 - PPSV23 or PCV20) Pneumococcal 0-64 years Vaccine (2 - PPSV23 or PCV20) [facility] Start: 10-17-2016 Pneumococcal 0-64 years Vaccine (1 of 1 - PPSV23) Pneumococcal 0-64 years Vaccine (1 of 1 - PPSV23) [place] Start: 2012 Administration of varicella zoster vaccine Zoster (Shingles) Vaccine (1 of 2) [facility] Start: 2012 Shingles Vaccine (1 of 2) Shingles Vaccine (1 of 2) [facility] Start: 2007 Screening for malignant neoplasm of colon [facility] Start: 1981 DTaP,Tdap and Td Vaccines (1 - Tdap) DTaP,Tdap and Td Vaccines (1 - Tdap) [facility] Start: 1981 DTaP/Tdap/Td vaccine (1 - Tdap) DTaP/Tdap/Td vaccine (1 - Tdap) [facility] Start: 1981 Hepatitis B vaccine (1 of 3 - Risk 3-dose series) Hepatitis B vaccine (1 of 3 - Risk 3-dose series) [facility] Start: 1980 Diabetic microalbuminuria test Diabetic microalbuminuria test [place] Start: 1980 Diabetic retinal exam Diabetic retinal exam [facility] Start: 1980 Hepatitis C screening Hepatitis C screen [facility] Start: 1980 Urine screening for protein Diabetic microalbuminuria test [facility] Start: 1977 HIV screening HIV screen [facility] Start: 1974 Depression Screen Depression Screen [facility] Start: 1974 Depression Screening Depression Screening [facility] Start: 1972 [object Object] Diabetic foot exam [place] Start: 1972 A1C test (Diabetic or Prediabetic) A1C test (Diabetic or Prediabetic) [place] Start: 1972 Diabetic foot examination Diabetic foot exam [facility] Start: 1972 Diabetic retinal exam Diabetic retinal exam [place] Start: 1972 HbA1c (Bld) [Mass fraction] A1C test (Diabetic or Prediabetic) [place] Start: 1972 Hemoglobin A1c measurement A1C test (Diabetic or Prediabetic) [facility] Start: 1972 Lipid panel Lipid [place] Start: 1972 Lipid screen Lipid screen [place] Start: 1967 COVID-19 Vaccine (1) COVID-19 Vaccine (1) [facility] Start: 1962 Glaucoma screening Diabetic Ophthalmology Exam [facility] [facility] End: 10-15-2019 C. difficile toxin Molecular C. difficile toxin Molecular Microbiology Routine Once for 1 Occurrences starting 10/15/2019 until 10/15/2019 [place], [place] Comment on above: Once for 1 Occurrences starting 10/15/19 until 10/15/2019 C. difficile toxin Molecular C. difficile toxin Molecular Microbiology Routine 10/15/2019 7:30 AM EDT [place], [place] CT ABDOMEN PELVIS WO CONTRAST Additional Contrast? None CT ABDOMEN PELVIS WO CONTRAST Additional Contrast? None Imaging STAT 09/03/2019 2:52 PM EDT [place] End: 10-15-2019 Gastrointestinal Panel, Molecular Gastrointestinal Panel, Molecular Microbiology Routine Once for 1 Occurrences starting 10/15/2019 until 10/15/2019 [facility] ID Comment on above: Once for 1 Occurrences starting 10/15/19 20 until 10/15/2019 Gastrointestinal [place], Molecular Gastrointestinal Panel, Molecular Microbiology Routine 10/15/2019 7:30 AM EDT [facility] ID End: 10-15-2019 Giardia / Cryptosporidum antigens Giardia / Cryptosporidum antigens Lab Routine Once for 1 Occurrences starting 10/15/2019 until 10/15/2019 [place] Comment on above: Once for 1 Occurrences starting 10/15/19 20 until 10/15/2019 Giardia / Cryptospor idum antigens Giardia / Cryptosporidum antigens Lab Routine 10/15/2019 7:30 AM EDT [place] Immunizations Immunization Date Immunization Notes Care Provider Fa asaf 02-28-2020 influenza virus vaccine, unspecified formulation Chani Kierra [employer] Work Phone: [employer] 08-22-2016 pneumococcal conjuga te vaccine, 13 [facility] P[facility] Date Payer Category Payer Self-pay 2023 Unknown [id number] 2020 Unknown GENERIC MCO GENE AMARA MCO [id number] 2020-Present [id number] 2017 Unknown MEDICAL MUTUAL M MO SUPERMED [id number] 2017-Present [phone] [address] [place] [address] [id number] 2015 Unknown MEDICAL MUTUAL M EDICAL MUTUAL [address] xxxxxxxxxxxx 2015-Present [phone] [address] [place] [address] xxxxxxxxxxxx [id number] 1962 Unknown [id number] 1962 Unknown [id number] [id number] 1962 Unknown [id number] [id number] 1962 Unknown [id number] [id number] 1962 Unknown [id number] [id number] 6 1962 Unknown [id number] [id number] 6 1962 Unknown [id number] [id number] 6 1962 Unknown [id number] [id number] 6 1962 Unknown [id number] [id number] 6 1962 Unknown [id number] [id number] 1962 Unknown [id number] [id number] 1959 Unknown [id number] .[id number] Unknown [id number] Social History Date Type Detail Facility Start: 09-11-2019 End: 07-26-2022 Tobacco smoking status NHIS Never smoker [facility] Start: 09-11-2019 End: 09-04-2023 Alcohol intake Current drinker of alcohol (finding) [place], [place] Start: 09-28-2013 Alcohol Comment occassional [place], [place] Start: 1960 Sex Assigned At Not on file [place] Start: 07-31-2020 End: 07-26-2022 Tobacco use and exposure Never used [employer] Work Phone: Start: 10-08-2021 End: 10-30-2021 Exposure to SARS-CoV-2 (event) Not sure [employer] Phone: Start: 07-26-2020 End: 07-10-2023 [facility] Start: 07-26-2020 End: 07-10-[address] [facility] Start: 07-26-2022 Alcohol Comment Occ. 1-2 on the week ends [facility] Start: 1960 Sex Assigned At Male [facility] Clinical Notes 10-18-2021 to 09-04-2023 [facility] 09/04/2023 3:00 PM EDTPatient Kemar Daugherty [facility] - 08/19/2023 1:11 PM [facility] - 07/10/2023 3:00 PM ESTInstructionsAttachments Note Date & Type Note Facility 09-04-2023 History of Presen t illness Narrative Images from the original note were not included. [facility] [place] [address] OFFICE: FAX: [phone] Patient: Sd Cardozo Date of : 1960 Encounter Date: 09/04/2023 Subjective Chief Complaint Chief Complaint Patient presents with Follow-up History of Present Illness Sd Cardozo is a 63 y.o. male who has a past medical history of Hyperlipidemia, Neuromuscular disorder ([facility]), and Type 1 diabetes ([facility]). Sd was last seen in office 07/10/2023 where we discussed concerns of fluctuating glucose levels. He was having episodes of hyperglycemia, He wears a continuous glucose meter Dexacom 6. His glucose levels up as high as 300-350 for a couple of hours mostly in later afternoon and evening til bed time. He denied feeling ill or changing his diet. He reported eating very similar types and amounts food. Sd was going to adjust timing of Basaglar 10 units twice a day to 0800 and 1600. He would continue to carb-count coverage Novoolog. Discussed switching to Tresiba as it may provider longer coverage and reduce amount of insulin. Sd was going to continue with Basaglar, but would consider switching. Sd was attempt rosuvastatin again. He had stopped medication related to body pain, which he was not sure if related to other medications. He was going to start at time when not starting any other medications. Sd indicates he did not start rosuvastatin because he was started on antibiotic and didn't want to start. Sd indicates today glucose has been higher as overate for lunch with pizza. He indicates overall glucose levels have not been as high. He indicates has been having lows in the morning. His sensor will ring at 70s. He has reduced the amount of basaglar to 8 units. Novolog 3 to 4 units in the morning. Switch sensors going to dexaxom 7 as he has been having more problems with stick and having more problems with bruising of the skin. He was hoping for updated model. Diabetes Mellitus Type I, Follow-up: Patient here for follow-up evaluation of Type 1 diabetes mellitus. The initial diagnosis of diabetes was made in 1999. His clinical course has fluctuated, but has been stable with A1c <7.5%. Insulin dosage review with Sd suggested compliance all of the time. Associated symptoms of hyperglycemia have been none. Associated symptoms of hypoglycemia have been clumsy or jerky movements, dizziness, jitteriness, sweating and tingling around the mouth. He is currently taking Meal Time insulin: based on Carbohydrate Count: Novolog 3-5 units units pre-breakfast, Novolog 3-5 units units pre-lunch, Novolog 3-5 units units pre-dinner. 0.5 unit for every 18 g of carbohydrates. Max 3 units Basaglar insulin twice a day 10 units twice a day Insulin is given by patient. Compliance with blood glucose monitoring: excellent. The patient does perform independently. Rotation of sites for injection: abdominal wall Exercise: daily Meal panning: He is using carbohydrate counting. Blood glucose times and ranges: Check glucose levels minimum 6 times a day. Glucose levels range high when taking oral steroids. Glucose levels have been up into 400s. Readings fluctuate without a pattern with some hypoglycemia before lunch. Diet has been better. Exercising every day MedicAlert Identification Noted? no Work Cholesterol Blood pressure: 115-120/70s Trending A1c: 07/2022 - 7.2%; 11/14/2022 - 7.5%; 7.0%; 02/13/2023 7.0%; 06/06/2023 7.2%; Glucose level are up and down all day. have good days and than have bad days without doing anything different. Diagnosed with diabetes in 1999. Indicates his glucose levels continued to go up, despite being on Metformin and Sulfonylurea, glucose continued to stay high. He want on insulin and has been on insulin since that time. Statin therapy: Was taking atorvastatin 10 mg daily. Reports taking for about 6 months reported that he did not continue to take relate to developing abnormal sensation around mouth and headache. Was not sure if symptoms were related to Current treatment: 1. BASAGLAR KWIKPEN U-100 INSULIN 100 unit/mL (3 mL) insulin pen, INJECT 10 UNITS S.Q. twice a day 2. NOVOLOG FLEXPEN 100 unit/mL insulin pen S.Q. 0.5 unit per 15-18 g carbohydrates 3-4 times a day. He covers snacks with 1-2 units. Takes around 3-4 Units in the morning Lunch: 6 to 7 units Supper: 6-7 units Evening: Generally does not take. Dexacom 6 have been having problem getting it to stick and having more problems with bruising of the skin. Past Medical, Family, Surgery and Social History Past Medical History: Diagnosis Date Hyperlipidemia Neuromuscular disorder ([facility]) Type 1 diabetes ([facility]) Past Surgical History: Procedure Laterality Date KIDNEY STONE SURGERY History reviewed. No pertinent family history. Social History Socioeconomic History Marital status: Spouse name: Not on file Number of children: Not on file Years of education: Not on file Highest education level: Not on file Occupational History Not on file Tobacco Use Smoking status: Never Smokeless tobacco: Never Vaping Use Vaping Use: Never used Substance and Sexual Activity Alcohol use: Yes Comment: Occ. 1-2 on the weekends Drug use: Never Sexual activity: Defer Other Topics Concern Not on file Social History Narrative Not on file Social Determinants of Health Financial Resource Strain: Not on file Food Insecurity: No Food Insecurity (09/04/2023) Hunger Screening Food Insecurity - Worry: Never True Food Insecurity - Inability: Never True Transportation Needs: Not on file Physical Activity: Not on file Stress: Not on file Social Connections: Not on file Interpersonal Safety: Not on file Housing Instability: Not on file Allergies and Current Medications Allergies Allergen Reactions House Dust Current Outpatient Medications Medication Sig Dispense Refill aspirin 81 mg Take 1 tablet (81 mg total) by mouth in the morning. blood-glucose meter,continuous (DEXCOM G6 LEATHER SORTER) misc 1 Device by miscellaneous route continuously. 1 each 0 blood-glucose sensor (DEXCOM G6 SENSOR) device 1 each by miscellaneous route every 10 days. 10 each 4 blood-glucose transmitter (DEXCOM G6 TRANSMITTER) device 1 Device by miscellaneous route every 3 (three) months. 1 each 4 clobetasoL (TEMOVATE) 0.05 % ointment Apply 1 Application topically in the morning and 1 Application before bedtime. Max 14 days at one interval. 30 g 0 glucosamine-chondroitin 500-400 mg capsule Take by mouth. loratadine (CLARITIN) 10 mg tablet Take 1 tablet (10 mg total) by mouth. MULTIVITAMIN (MULTIPLE VITAMINS ORAL) Take by mouth. NovoLOG FlexPen U-100 Insulin 100 unit/mL (3 mL) insulin pen INJECT 3-7 UNITS UNDER THE SKIN 4 (FOUR) TIMES A DAY WITH MEALS AND NIGHTLY. CARB COUNTING 1-2 UNITS FOR SNACKS. MAX 30 UNITS PER DAY 30 mL 4 insulin degludec (TRESIBA FLEXTOUCH U-100) 100 unit/mL (3 mL) insulin pen Inject 16 Units under the skin in the morning. 6 mL 0 No current facility-administered medications for this visit. Review of Systems Review of Systems Constitutional: Negative for activity change, appetite change, fatigue, fever and unexpected weight change. Cardiovascular: Negative for chest pain, palpitations and leg swelling. Gastrointestinal: Negative for constipation, diarrhea, nausea and vomiting. Genitourinary: Negative for difficulty urinating. Musculoskeletal: Negative for gait problem. Neurological: Negative for seizures, weakness, numbness and headaches. Psychiatric/Behavioral: Negative for sleep disturbance. Objective: Vital Signs BP 130/82 Pulse 76 Temp 36.7 C (98.1 F) Ht 175.3 cm (5' 9.02 ) Wt 70.3 kg (155 lb) SpO2 96% BMI 22.88 kg/m Physical Exam Physical Exam Vitals and nursing note reviewed. Constitutional: Appearance: Normal appearance. He is well-developed and well-groomed. HENT: Head: Normocephalic. Nose: Nose normal. Mouth/Throat: Lips: [place]. Mouth: Mucous membranes are moist. Pulmonary: Effort: Pulmonary effort is normal. Neurological: Mental Status: He is alert and oriented to person, place, and time. Psychiatric: Attention and Perception: Attention and perception normal. Mood and Affect: Mood and affect normal. Speech: Speech normal. Behavior: Behavior normal. Behavior is cooperative. Thought Content: Thought content normal. Cognition and Memory: Cognition and memory normal. Judgment: Judgment normal. Recent Laboratory Work and Imaging Lab Results Component Value Date WBC 6.9 06/06/2023 HGB 14.2 06/06/2023 HCT 41.5 06/06/2023 MCV 91 06/06/2023 PLT 194 06/06/2023 Lab Results Component Value Date GLU 198 (H) 06/06/2023 CALCIUM 9.5 06/06/2023 K 4.8 06/06/2023 CO2 31 06/06/2023 CL 101 06/06/2023 BUN 17 06/06/2023 CREATININE 0.96 06/06/2023 No results found for: HGBA1C Lab Results Component Value Date ALT 27 06/06/2023 AST 26 06/06/2023 ALKPHOS 84 06/06/2023 Assessment and Plan: 1. Diabetes mellitus type 1, controlled, insulin dependent ([facility]) - POCT Hemoglobin A1c - insulin degludec (TRESIBA FLEXTOUCH U-100) 100 unit/mL (3 mL) insulin pen; Inject 16 Units under the skin in the morning. Dispense: 6 mL; Refill: 0 2. Mixed hyperlipidemia -recommend starting Rosuvastatin Orders Placed This Encounter Procedures POCT Hemoglobin A1c New Medications Ordered This Visit Medications insulin degludec (TRESIBA FLEXTOUCH U-100) 100 unit/mL (3 mL) insulin pen Sig: Inject 16 Units under the skin in the morning. Dispense: 6 mL Refill: 0 LOT: [id number]; EXP: 07/16/2024 Medications Discontinued During This Encounter Medication Reason insulin glargine (BASAGLAR KWIKPEN U-100 INSULIN) 100 unit/mL (3 mL) insulin pen DISCUSSION/FOLLOW UP: A1c today 6.8%. Attempt to obtain Dexacom 7 to upgrade for better coverage. Switch from basaglar to Tresiba. Plan to start 20% reduce dose at 16 units daily (once a day). Samples given today. Follow up 6 weeks to determine effectiveness. Total time spent was 40 minutes: Preparing to see the patient (e.g., review of tests) Obtaining and/or reviewing separately obtained history Performing a medically appropriate examination and/or evaluation Counseling and educating the patient/family/caregiver Ordering medications, tests, or procedures Documenting clinical information in the electronic or other health record DURAN Jin This note was created with the assistance of a speech-recognition program. Although the intention is to generate a document that actually reflects the content of the visit, no guarantees can be provided that every mistake has been identified and corrected by editing. DURAN Jin 09/04/232006 documented in this encounter [facility] 09-04-2023 Instructions DURAN Jin - 09/04/2023 3:00 PM EDT 16 units of Tresiba documented in this encounter [facility] 08-19-2023 History of Presen t illness Narrative DWO for CGM signed/dated and faxed to [facility] at [phone] Arlen Daugherty RPH 08/19/23 1312 documented in this encounter [facility] 07-10-2023 History of Presen t illness Narrative Images from the original note were not included. [facility] [address] [address] OFFICE: FAX: [phone] Patient: Sd Cardozo Date of : 1960 Encounter Date: 07/10/2023 Subjective Chief Complaint Chief Complaint Patient presents with Medication Reaction Change in intake of insulin.am 3-4 units, get work reading show 300 no changes. 2-3 units more a day to get levels to go down. History of Present Illness Sd Cardozo is a 63 y.o. male who has a past medical history of Hyperlipidemia, Neuromuscular disorder ([facility]), and Type 1 diabetes ([facility]). Sd presents today with concerns associated with diabetes Type 1. He is concerned with the increase amount of insulin he has needed to use over the past 2 weeks related to glucose levels reading harder. He wears a continuous glucose meter Dexacom 6. His glucose levels up as high as 300-350 for a couple of hours mostly in later afternoon and evening til bed time. He denies feeling ill or changing his diet. He reports eating very similar types and amounts food. Dexacom CGM indicatse: Average glucose for past 14 days 159 Low glucose level 55-60 High glucose level 350 Denies having illness or change in activity that may affect his glucose metabolism. He is active with work, but reports that no significant change from prior days. He does report that over the past 1-2 days the glucose readings have gone back to more normal levels. He is asking as I get older will my demand or need for more insulin go up. Diabetes Mellitus Type I, Follow-up: Patient here for follow-up evaluation of Type 1 diabetes mellitus. The initial diagnosis of diabetes was made in 1999. His clinical course has fluctuated, but has been stable with A1c <7.5%. Insulin dosage review with Sd suggested compliance all of the time. Associated symptoms of hyperglycemia have been none. Associated symptoms of hypoglycemia have been clumsy or jerky movements, dizziness, jitteriness, sweating and tingling around the mouth. He is currently taking Meal Time insulin: based on Carbohydrate Count: Novolog 3-5 units units pre-breakfast, Novolog 3-5 units units pre-lunch, Novolog 3-5 units units pre-dinner. 0.5 unit for every 18 g of carbohydrates. Max 3 units Basaglar insulin twice a day 10 units twice a day Insulin is given by patient. Compliance with blood glucose monitoring: excellent. The patient does perform independently. Rotation of sites for injection: abdominal wall Exercise: daily Meal panning: He is using carbohydrate counting. Blood glucose times and ranges: Check glucose levels minimum 6 times a day. Glucose levels range high when taking oral steroids. Glucose levels have been up into 400s. Readings fluctuate without a pattern with some hypoglycemia before lunch. Diet has been better. Exercising every day MedicAlert Identification Noted? no Work Cholesterol Blood pressure: 1115-120/70s Trending A1c: 07/2022 - 7.2%; 11/14/2022 - 7.5%; 7.0%; 02/13/2023 7.0%; 06/06/2023 7.2% Glucose level are up and down all day. have good days and than have bad days without doing anything different. Diagnosed with diabetes in 1999. Indicates his glucose levels continued to go up, despite being on Metformin and Sulfonylurea, glucose continued to stay high. He want on insulin and has been on insulin since that time. Statin therapy: Was taking atorvastatin 10 mg daily. Reports taking for about 6 months reported that he did not continue to take relate to developing abnormal sensation around mouth and headache. Was not sure if symptoms were related to Current treatment: 1. BASAGLAR KWIKPEN U-100 INSULIN 100 unit/mL (3 mL) insulin pen, INJECT 10 UNITS S.Q. twice a day 2. NOVOLOG FLEXPEN 100 unit/mL insulin pen S.Q. 0.5 unit per 15-18 g carbohydrates 3-4 times a day. He covers snacks with 1-2 units. Takes around 3-4 Units in the morning Lunch: 6 to 7 units Supper: 6-7 units Evening: Generally does not take. Sd CGM identifies high glucose readings after he eats breakfast in the morning. He has lows in the afternoon about 1 hour after he eats. He reports giving insulin after he eats when he checks his glucose levels. Past Medical, Family, Surgery and Social History Past Medical History: Diagnosis Date Hyperlipidemia Neuromuscular disorder ([facility]) Type 1 diabetes ([facility]) Past Surgical History: Procedure Laterality Date KIDNEY STONE SURGERY History reviewed. No pertinent family history. Social History Socioeconomic History Marital status: Spouse name: Not on file Number of children: Not on file Years of education: Not on file Highest education level: Not on file Occupational History Not on file Tobacco Use Smoking status: Never Smokeless tobacco: Never Vaping Use Vaping Use: Never used Substance and Sexual Activity Alcohol use: Yes Comment: Occ. 1-2 on the weekends Drug use: Never Sexual activity: Defer Other Topics Concern Not on file Social History Narrative Not on file Social Determinants of Health Financial Resource Strain: Not on file Food Insecurity: No Food Insecurity (07/10/2023) Hunger Screening Food Insecurity - Worry: Never True Food Insecurity - Inability: Never True Transportation Needs: Not on file Physical Activity: Not on file Stress: Not on file Social Connections: Not on file Interpersonal Safety: Not on file Housing Instability: Not on file Allergies and Current Medications No Known Allergies Current Outpatient Medications Medication Sig Dispense Refill aspirin 81 mg Take 1 tablet (81 mg total) by mouth in the morning. blood-glucose meter,continuous (DEXCOM G6 LEATHER SORTER) misc 1 Device by miscellaneous route continuously. 1 each 0 blood-glucose sensor (DEXCOM G6 SENSOR) device 1 each by miscellaneous route every 10 days. 10 each 4 blood-glucose transmitter (DEXCOM G6 TRANSMITTER) device 1 Device by miscellaneous route every 3 (three) months. 1 each 4 glucosamine-chondroitin 500-400 mg capsule Take by mouth. insulin glargine (BASAGLAR KWIKPEN U-100 INSULIN) 100 unit/mL (3 mL) insulin pen Inject 10 Units under the skin in the morning and at bedtime. 15 mL 4 loratadine (CLARITIN) 10 mg tablet Take 1 tablet (10 mg total) by mouth. MULTIVITAMIN (MULTIPLE VITAMINS ORAL) Take by mouth. NovoLOG FlexPen U-100 Insulin 100 unit/mL (3 mL) insulin pen INJECT 3-7 UNITS UNDER THE SKIN 4 (FOUR) TIMES A DAY WITH MEALS AND NIGHTLY. CARB COUNTING 1-2 UNITS FOR SNACKS. MAX 30 UNITS PER DAY 30 mL 4 clobetasoL (TEMOVATE) 0.05 % ointment Apply 1 Application topically in the morning and 1 Application before bedtime. Max 14 days at one interval. 30 g 0 No current facility-administered medications for this visit. Review of Systems Review of Systems Constitutional: Negative for activity change, appetite change, fatigue, fever and unexpected weight change. Endocrine: Negative for polydipsia, polyphagia and polyuria. Genitourinary: Negative for difficulty urinating. Skin: Positive for rash. Neurological: Negative for numbness. Psychiatric/Behavioral: Negative for confusion and sleep disturbance. The patient is not nervous/anxious. Objective: Vital Signs BP 122/82 Pulse 84 Temp 36.9 C (98.4 F) Ht 175.3 cm (5' 9.02 ) Wt 70.9 kg (156 lb 6.4 oz) SpO2 97% BMI 23.09 kg/m Physical Exam Physical Exam Vitals and nursing note reviewed. Constitutional: Appearance: Normal appearance. He is well-developed and well-groomed. HENT: Head: Normocephalic. Nose: Nose normal. Mouth/Throat: Lips: [place]. Mouth: Mucous membranes are moist. Pulmonary: Effort: Pulmonary effort is normal. Skin: General: Skin is warm and dry. Neurological: Mental Status: He is alert and oriented to person, place, and time. Psychiatric: Attention and Perception: Attention and perception normal. Mood and Affect: Mood and affect normal. Speech: Speech normal. Behavior: Behavior normal. Behavior is cooperative. Thought Content: Thought content normal. Cognition and Memory: Cognition and memory normal. Judgment: Judgment normal. Recent Laboratory Work and Imaging Lab Results Component Value Date WBC 6.9 06/06/2023 HGB 14.2 06/06/2023 HCT 41.5 06/06/2023 MCV 91 06/06/2023 PLT 194 06/06/2023 Lab Results Component Value Date GLU 198 (H) 06/06/2023 CALCIUM 9.5 06/06/2023 K 4.8 06/06/2023 CO2 31 06/06/2023 CL 101 06/06/2023 BUN 17 06/06/2023 CREATININE 0.96 06/06/2023 No results found for: HGBA1C Lab Results Component Value Date ALT 27 06/06/2023 AST 26 06/06/2023 ALKPHOS 84 06/06/2023 Assessment and Plan: 1. Diabetes mellitus type 1, controlled, insulin dependent ([facility]) 2. 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 Max 14 days at one interval. Dispense: 30 g; Refill: 0 No orders of the defined types were placed in this encounter. New Medications Ordered This Visit Medications clobetasoL (TEMOVATE) 0.05 % ointment Sig: Apply 1 Application topically in the morning and 1 Application before bedtime. Max 14 days at one interval. Dispense: 30 g Refill: 0 There are no discontinued medications. DISCUSSION/FOLLOW UP: Discuss taking Basaglar 10 units twice a day different times at 0800 and 1600. This may help reduce the higher levels. Continue to cover with Novolog by carb-counting. Discussed switching to Tresiba (degludec) to determine if able to stabilize glucose levels better. Will continue with the Basaglar for now, but when gets to end of current supply will readdress switching. Sd is going to try taking statin medication rosuvastatin again. Hopefully will be able tolerate. Follow up scheduled for 09/04/2023. Follow up sooner if needed. Total time spent was 40 minutes: Preparing to see the patient (e.g., review of tests) Obtaining and/or reviewing separately obtained history Performing a medically appropriate examination and/or evaluation Counseling and educating the patient/family/caregiver Ordering medications, tests, or procedures Documenting clinical information in the electronic or other health record DURAN Jin This note was created with the assistance of a speech-recognition program. Although the intention is to generate a document that actually reflects the content of the visit, no guarantees can be provided that every mistake has been identified and corrected by editing. DURAN Jin 07/10/232030 documented in this encounter [facility] [employer] 10-30-2021 Hospital Discharg e Juju Garcia RN - 10/30/2021 DISCHARGE INSTRUCTIONS FOR COLONOSCOPY In order to continue your care at home, please follow the instructions below. For General Anesthesia: ? Do not drink any alcoholic beverages or make any legal or important decisions for 24 hours. ? Do not drive or operate machinery for 24 hours. ? You may return to work after 24 hours. Diet ? Drink plenty of fluids after surgery, unless you are on a fluid restriction. ? After general anesthesia, start out eating lightly (broth, soup, bread, etc.) advancing as tolerated to your usual diet. Try to avoid spicy or greasy/fatty foods for 24 hours. Avoid milk/milk product for several hours. Medications ? Take medications as ordered by your surgeon. Activities ? Limit your activities for 24 hours. ? Walk around to help pass gas. ? You may shower. Call your surgeon for the following: ? If you have abdominal pain that is not relieved by passing gas. ? For an oral temperature (by mouth) is 101 degrees or higher, chills or excessive sweating. ? You have increasing and progressive bleeding or drainage from surgery area. ? Persistent nausea or vomiting ? Rectal bleeding (may be red, maroon, or black) or change in your bowel habits. ? Redness or swelling at the IV site. ? If you are unable to urinate within 8 hours of surgery. ? For any questions or concerns you may have. Next screening colonoscopy: 10 years The following attachments cannot be sent through Care Everywhere.High-Fiber Diet (Mozambican)documented in this encounter [employer] Phone: 10-30-2021 History of Presen t illness Narrative CECUM REACHED AT 1228 Finger stick blood sugar 145 documented in this encounter [employer] Phone: 10-18-2021 History of Presen t illness Narrative Pre-op Instructions For Out-Patient Surgery Medication Instructions: Please stop herbs and any supplements now (includes vitamins and minerals). Please contact your surgeon and prescribing physician for pre-op instructions for any blood thinners. If you have inhalers/aerosol treatments at home, please use them the morning of your surgery and bring the inhalers with you to the hospital. Please take the following medications the morning of your surgery with a sip of water: (Sd will consult with his Manager Of Data in regards to 10/29/21 night dose of insulin ) Surgery Instructions: 1. After midnight before surgery: Do not eat or drink anything, including water, mints, gum, and hard candy. You may brush your teeth without swallowing. No smoking, chewing tobacco, or street drugs. 2. Please shower or bathe before surgery. 3. Please do not wear any cologne, lotion, powder, deodorant, jewelry, piercings, perfume, makeup, nail rwandan, hair accessories, or hair spray on the day of surgery. Wear loose comfortable clothing. 4. Leave your valuables at home. Bring a storage case for any glasses/contacts. 5. An adult who is responsible for you MUST drive you home and should be with you for the first 24 hours after surgery. 6. If having out-patient knee and foot surgeries, please arrange for planned crutches, walker, or wheelchair before arriving to the hospital. The Day of Surgery: Arrive at [facility] Entr[facility] at the time directed by your surgeon and check in at the desk. If you have a living will or healthcare power of banking attorney, please bring a copy. You will be taken to the pre-op holding area where you will be prepared for surgery. A physical assessment will be performed by a nurse practitioner or warehouse puller. Your IV will be started and you will meet your anesthesiologist. When you go to surgery, your family will be directed to the surgical waiting room, where the doctor should speak with them after your surgery. After surgery, you will be taken to the recovery room then when you are awake and stable you will go to the short stay unit for preparation to be discharged. If you use a Bi-PAP or C-PAP machine, please bring it with you and leave it in the car in case it is needed in recovery room. Instructions read to Sd and understanding verbalized. 10/30/21 Colonoscopy documented in this encounter [employer] Phone: Evaluation note Diagnosis Diabetes mellitus type 1, controlled, insulin dependent ([facility])- Primary 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 documented [facility]* Diagnosis Diabetes mellitus type 1, controlled, insulin dependent ([facility]-HCC)- Primary Mixed hyperlipidemia documented in this encounter [facility] System[facility] noteNo assessment information available [facility] Work Phone: InstructionsNot on filedocumented in this encounter [facility] [employer] SystemInstructionsNot on filedocumented in this encounter [facility] SystemReason for visit Narrative* Auth/Cert Specialty Diagnoses / Procedures Referred By Contac t Referred To Contact Diagnoses Screen for colon cancer SCREEN FOR COLON CANCER Procedures VA COLONOSCOPY FLX DX W/COLLJ SPEC WHEN PFRMD VA COLONOSCOPY W/BIOPSY SINGLE/MULTIPLE VA COLSC FLX W/RMVL OF TUMOR POLYP LESION SNARE TQ COLORECTAL CANCER SCREENING, NOT HIGH RISK Colton Romero MD [address] [place] [address] [employer] [address] [place] [address] Referral ID Status Reason Start Date Expiration Date Visits Re quested Visits Authorized [id number] 1 1 [employer] Phone: Advance Directives No Advanced Directives Records FoundDocuments on File Type Date Recorded Patient Resident Services Coordinator Expl anation Advance Directives and Living Will Power of Manhole Builder Latest Code Status on File Code Status Date Activated Date Inactivated Comments Full Code 08/06/2016 12:55 PM 08/08/2016 11:55 AM Full Code 09/28/2013 3:25 PM 09/29/2013 8:00 PM Documents on File Type Date Recorded Patient Resident Services Coordinator Expl anation ACP-Advance Directive ACP-Power of Manhole Builder Documents on File Type Date Recorded Patient Resident Services Coordinator Expl anation ACP-Advance Directive ACP-Power of Manhole Builder Latest Code Status on File Code Status Date Activated Date Inactivated Comments Full Code 08/06/2016 12:55 PM 08/08/2016 11:55 AM Full Code 09/28/2013 3:25 PM 09/29/2013 8:00 PM Advance Directive Response Recorded Date/ Time Advance Directives No September 14 12:45pm Discharge Instructions * Attachments The following attachments cannot be sent through Care Everywhere. * Urinary Retention (Mozambican) documented in this encounter* Instructions* Freddie Feliz, DO - 09/11/2019 Please take all medications as prescribed. Please follow up with your primary care physician (PCP) by calling tomorrow for the next available appointment. If you do not have a PCP please establish care by calling the clinic or a physician listed below. Please return to emergency department sooner if you develop any worsening symptoms, uncontrolled fevers, uncontrolled vomiting, or any other concerns. * Attachments The following attachments cannot be sent through Care Everywhere. * Constipation (Mozambican) documented in this encounter* Attachments The following attachments cannot be sent through Care Everywhere. * Abrasions (Mozambican) documented in this encounter Assessments Diagnosis Urinary retention Retention of urine, unspecified Diagnosis Abdominal pain, right lower quadrant Constipation, unspecified constipation type Diagnosis Abrasion of left lower extremity, initial encounter- Primary Summary Purpose Family History No Family History Records FoundNo Family History Records FoundNo Family History Records FoundNo Family History Records FoundNo Family History Records FoundNo Family History Records FoundNo Family History Records FoundNo Family History Records Found Reason for Referral Specialty Diagnoses / Procedures Referred By Lesli zavala Referred To Contact Diagnoses Diabetes mellitus type 1, controlled, insulin dependent ([facility]) Chani Weinberg, POLICE BOOKING OFFICER-WELD FITTER [address] [place] [address] Referral ID Status Reason Start Date Expiration Date V isits Requested Visits Authorized [id number] Pending Review 1 1 Chief Complaint and Reason for Visit Chief Complaint r97.20 Additional Source Comments Reason for Visit (unrecogniz ed section and content) Reason Comments Abdominal Pain RLQ Reason Comments Abdominal Pain Reason Comments Leg Injury left Fall Reason Comments Medication Reaction Change in intake of insulin.am 3-4 units, get work reading show 300 no changes. 2-3 units more a day to get levels to go down. Reason Comments Follow-up (unrecognized sect ion and content) No Status Records FoundNo Status Records FoundNo Status Records FoundNo Status Records FoundNo Status Records FoundNo Status Records FoundNo Status Records FoundNo Status Records Found INFORMATION SOURCE (unrecogn ized section and content) DATE CREATED AUTHOR [facility]/29/2020 [facility] DATE CREATED AUTHOR AUTHOR'S ORGANIZ ATION 11/26/2020 [facility] DATE CREATED AUTHOR AUTHOR'S ORGANIZ ATION 10/14/2021 [facility] DATE CREATED AUTHOR AUTHOR'S ORGANIZ ATION 08/10/2022 [facility] DATE CREATED AUTHOR AUTHOR'S ORGANIZ ATION 12/28/2022 [facility] DATE CREATED AUTHOR AUTHOR'S ORGANIZ ATION 10/08/2023 [facility] DATE CREATED AUTHOR AUTHOR'S ORGANIZ ATION 10/18/2023 [facility] DATE CREATED AUTHOR AUTHOR'S ORGANIZ ATION 10/23/2023 [facility] Care Teams (unrecognized sec tion and content) 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 Relationship Specialty Start Date End Date Alejandro Umaña [address] [address] PCP - General Family Medicine 09/03/19 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 Relationship Specialty Start Date End Date Alejandro Umaña [id number] [address] PCP - General Family Medicine 09/03/19 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 Relationship Specialty Start Date End Date Alejandro Umaña [address] [address] PCP - General Family Medicine 09/03/19 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 Relationship Specialty Start Date End Date Chani Weinberg, POLICE BOOKING OFFICER-WELD FITTER [address] [place] [address] PCP - General Family Medicine 09/17/22 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 Relationship Specialty Start Date End Date Chani Weinberg, POLICE BOOKING OFFICER-WELD FITTER [address] [place] [address] PCP - General Family Medicine 09/17/22 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 Relationship Specialty Start Date End Date Chani Weinberg, POLICE BOOKING OFFICER-WELD FITTER [address] [place] [address] PCP - General Family Medicine 09/17/22 Team Status: Active Member Role Status Dates Alejandro Umaña MD Primary Care Provider Active Team Status: Inactive Member Role Status Dates Kim Ortiz MD Attending Provider Active St art: October 03, 2023 End: October 03, 2023 Alejandro Umaña MD Primary Care Provider Active Start: October 03, 2023 End: October 03, 2023 Continuous Active and Recently Administ ered Medications (unrecognized section and content) Medication Order 10/28/2021 10/29/2021 10/30/2021 0.9 % sodium chloride infusion (CANCELED) IntraVENous, at 125 mL/hr, CONTINUOUS, Starting on Fri10/30/21 at 1130, Pre-op (day of surgery) 1139 (New Bag - Prov ider: Mira Varela RN)1203 (Paused - Provider: RENETTA Granado CRNA - Comment: Switch to gravity)1204 (Restarted - Provider: RENETTA Granado CRNA)1247 (Anesthesia Volume Adjustment - Provider: Jeanne Reyes APRN - BENJAMÍN)1352 (Stopped - Provider: Juju Knapp RN) Goals (unrecognized section and content) Goals may be documented in a n alternate section FOR RECORDS PERTAINING TO PATIENTS WHO ARE OR HAVE BEEN ENROLLED IN A CHEMICAL DEPENDENCY/SUBSTANCEABUSE PROGRAM, SOME INFORMATION MAY BE OMITTED. This clinical summary was aggregated from multiple sources. Caution should be exercised in using it in the provision of clinical care. This summary normalizes information from multiple sources, and as a consequence, information in this document may materially change the coding, format and clinical context of patient data. In addition, data may be omitted in some cases. CLINICAL DECISIONS SHOULD BE BASED ON THE PRIMARY CLINICAL RECORDS. [facility]. provides no warranty or guarantee of the accuracy or completeness of information in this document.
[2023-12-08 17:15] LABS: Prostate Specific Antigen Dx 2.39 ng/mL (<=4.00)
== END 2023-12-08 16:06 | disposition home or self-care (01) ==
LOC: LAB 16:06
PROVIDERS: PCP Family Medicine; Visit Provider Nurse Practitioner Family
DX: R97.20 Elevated prostate specific antigen [PSA] (principal)
CPT/HCPCS: 36415; 84153

== ENCOUNTER 2025-01-17 16:22 | Outpatient (OUT) | payer OTHER, SELFPAY ==
--- OUTSIDE RECORDS SUMMARY | 2025-01-17 16:27 | XMS_ITS | Encounter Summary ---
Author Organization [facility] Address [address], [address] [place] [address] Care Team Providers Care Neurology Specialist Name Role Phone Alejandro Umaña MD Primary Care Provider [phone] Reason for Referral * Imaging (Routine) - Closed Specialty Diagnoses / Procedures Referred By Contac t Referred To Contact Radiology Diagnoses Intractable tension-type headache, unspecified chronicity pattern Procedures CT HEAD [place] [address] [place] [address] Phone: tel: fax: Referral ID Status Reason Start Date Expiration Date Visits Re quested Visits Authorized [id number] Closed 12/16/2023 01/30/2024 1 1 Encounter Details Date Type Department Care Team (Latest Contact Info) Description 12/16/2023 Transcribe Orders [facility] [address] [place], [place] [id number] [place]jandro [place] [address] [place] [id number] Intractable tension-type headache, unspecified chronicity pattern (Primary Dx) Social History Tobacco Use Types Packs/Day Years Used Date Smoking Tobacco: Never Smokeless Tobacco: Never Alcohol Use Standard Drinks/Week Comments Yes 0 (1 standard drink = 0.6 oz pur e alcohol) occassional AUDIT-C Answer Date Recorded Q1: How often do you have a drink containing alc ohol? Monthly or less 11/25/2022 Q2: How many drinks containi ng alcohol do you have on a typical day when you are drinking? 1 or 2 11/25/2022 Q3: How often do you have si x or more drinks on one occasion? Less than monthly 11/25/2022 Interpersonal Safety Domain Source: IP Abuse Scr eening Answer Date Recorded Read-Only, Retired: Physical Abuse Denies 11/25/2022 Read-Only, Retired: Verbal Abuse Denies 11/25/2022 Read-Only, Retired: Emotional abuse Denies 11/25/2022 Read-Only, Retired: Financial Abuse Denies 11/25/2022 Read-Only, Retired: Sexual abuse Denies 11/25/2022 Sex and Gender Information Value Date Recorded Sex Assigned at Not on file Legal Sex Male 3:05 PM EST Gender Identity Male 09/04/2019 4:11 PM EDT Sexual Orientation Bisexual 09/04/2019 4: 11 PM EDT documented as of this encounter Plan of Treatment Not on file documented as of this encounter Results * CT HEAD WO CONTRAST (12/16/2023 3:00 PM EDT) Anatomical Region Laterality Modality Head Computed Tomogra phy 12/17/2023 11:4 0 AM EDT Impressions 12/17/2023 11:[address] of the brain. Narrative 12/17/2023 11:42 AM EDT EXAMINATION: CT OF THE HEAD WITHOUT CONTRAST 12/16/2023 2:53 pm TECHNIQUE: CT of the head was performed without the administration of intravenous contrast. Automated exposure control, iterative reconstruction, and/or weight based adjustment of the mA/kV was utilized to reduce the radiation dose to as low as reasonably achievable. COMPARISON: MRI brain 11/26/2022, CTA/CT brain 11/25/2022 HISTORY: ORDERING SYSTEM PROVIDED HISTORY: Intractable tension-type headache, unspecified chronicity pattern TECHNOLOGIST PROVIDED HISTORY: Reason for Exam: Intractable tension-type headache, unspecified chronicity pattern Additional signs and symptoms: Pt states pain on right side of head. NKI FINDINGS: BRAIN/VENTRICLES: There is no acute infarct or acute intracranial hemorrhage present. There is no mass effect or midline shift present. There is no ventriculomegaly or abnormal extra-axial fluid collection present. No sellar or suprasellar mass is identified. No Chiari I malformation. ORBITS: Limited evaluation of the orbits is unremarkable. SINUSES: The paranasal sinuses and mastoid air cells are clear. SOFT TISSUES/SKULL: No lytic or blastic osseous lesions are identified. Procedure Note Dane Zuñiga MD - 12/17/2023 EXAMINATION: CT OF THE HEAD WITHOUT CONTRAST 12/16/2023 2:53 pm TECHNIQUE: CT of the head was performed without the administration of intravenous contrast. Automated exposure control, iterative reconstruction, and/orweight based adjustment of the mA/kV was utilized to reduce the radiation dose toas low as reasonably achievable. COMPARISON: MRI brain 11/26/2022, CTA/CT brain 11/25/2022 HISTORY: ORDERING SYSTEM PROVIDED HISTORY: Intractable tension-type headache, unspecified chronicity pattern TECHNOLOGIST PROVIDED HISTORY: Reason for Exam: Intractable tension-type headache, unspecifiedchronicity pattern Additional signs and symptoms: Pt states pain on right side of head. NKI FINDINGS: BRAIN/VENTRICLES: There is no acute infarct or acute intracranialhemorrhage present. There is no mass effect or midline shift present. There is no ventriculomegaly or abnormal extra-axial fluid collection present. Nosellar or suprasellar mass is identified. No Chiari I malformation. ORBITS: Limited evaluation of the orbits is unremarkable. SINUSES: The paranasal sinuses and mastoid air cells are clear. SOFT TISSUES/SKULL: No lytic or blastic osseous lesions are identified. IMPRESSION: Normal CT of the brain. Alejandro Umaña MD IMG CT ORDERABLES Final Result documented in this encounter Visit Diagnoses Diagnosis Intractable tension-type headache, unspecified chronicity pattern- Primary Intractable tension-type headache, unspecified chronicity pattern documented in this encounter Care Teams Neurology Specialist Relationship Specialty Start Date End Date Alejandro Umaña MD PCP - General Family Medicine 09/03/19 documented as of this encounter
--- OUTSIDE RECORDS SUMMARY | 2025-01-17 16:27 | XMS_ITS | Clinical Summary ---
Author Organization [employer] Address [id number] [place] [address] Care Team Providers Care Manager Delivery Name Role Phone Linda Lozada PLASTIC JIG AND FIXTURE BUILDER-CLINICAL ADMINISTRATIVE COORDINATOR Primary Care Provider Allergies Active Allergy Reactions Criticality Noted Date Comments House Dust 09/04/2023 Medications glucosamine-chond roitin 500-400 mg capsule Take by mouth. Activ e loratadine (CLARITIN) 10 mg tablet Take 1 tablet (10 mg total) by mouth. Active MULTIVITAMIN (MULTIPLE VITAMINS ORAL) Take by mouth. Active blood-glucose sensor (DEXCOM G6 SENSOR) deviceIndications :Diabetes mellitus type 1, controlled, insulin dependent ([facility]) 1 each by miscellaneous route every 10 days. 10 each 4 09/18/19 23 Active blood-glucose meter,continuous (DEXCOM G6 HOT [place]AMALE MAN) miscIndications:D iabetes mellitus type 1, controlled, insulin dependent ([facility]) 1 Device by miscellaneous route continuously. 1 each 09/18/19 23 Active blood-glucose transmitter (DEXCOM G6 TRANSMITTER) deviceIndications :Diabetes mellitus type 1, controlled, insulin dependent ([facility]) 1 Device by miscellaneous route every 3 (three) months. 1 each 09/18/19 23 Active blood-glucose meter,continuous (DEXCOM G7 HOT [place]AMALE MAN) misc Inject 1 each under the skin every 10 days. Active AMBULATORY COMPOUNDED MEDICATIONIndicat ions:Bilateral foot pain Apply 1 Application topically every 4 (four) hours as needed (neuopathhic pain). 120 g 11 03/19/20 24 Active NovoLOG Flexpen U-100 Insulin 100 unit/mL (3 mL) insulin penIndications:Ty pe 1 diabetes mellitus with hyperglycemia ([facility]) INJECT 3-7 UNITS UNDER SKIN 4 TIMES A DAY WITH MEALS AND NIGHTLY. CARB COUNTING 1-2 UNITS FOR SNACKS *MAX 30 UNITS PER DAY* 30 mL 4 06/21/19 25 Active rosuvastatin (CRESTOR) 5 mg tablet TAKE 1 TABLET (5 MG TOTAL) BY MOUTH IN THE MORNING 90 tablet 1 10/18/19 25 Active insulin degludec (TRESIBA FLEXTOUCH U-100) 100 unit/mL (3 mL) insulin penIndications:Di abetes mellitus type 1, controlled, insulin dependent ([facility]) 8 units in morning and 5-8 units in evening 10/27/19 25 Active trimethoprim-poly myxin B (POLYTRIM) 10,000 unit- 1 mg/mL drops Administer 1 drop to the right ear in the morning and 1 drop at noon and 1 drop in the evening and 1 drop before bedtime. Do all this for 10 days. 10 mL 12/10/19 25 025 Active Problems Problem Noted Date Diagnosed Date Vertebral artery stenosis, left 11/25/2022 Diabetes mellitus type 1, controlled, insulin de pendent 09/17/2022 Mixed hyperlipidemia 07/30/2022 Assessment & Plan (07/30/2022 5:28 PM EST): Cholesterol at target Resolved Problems Problem Noted Date Diagnosed Date Resolved Date Type 1 diabetes mellitus with hyperglycemia 07/30/2022 12/09/2023 Assessment & Plan (07/30/2022 5:28 PM EST): Mr. Cardozo is a 62-year-old gentleman with type 1 diabetes, uncontrolled based on hemoglobin A1c and blood sugars. Patient advised to watch his diet carefully and exercise on a regular basis. We will resubmit a request for a continuous glucose sensor to see if it is covered by insurance. No insulin changes advised today. Patient will continue following with Ophthalmology regularly and will come back for follow-up in 3 months URI with cough and congestion 06/05/2017 09/17/2022 Encounters Date Type Department Care Team Description 12/09/2024 11:30 AM EDT Office Visit [facility] [address] [place] [address] Linda Lozada APRN-CNP Non-recurrent acute suppurative otitis media of right ear without spontaneous rupture of tympanic membrane (Primary Dx); Cerumen debris on tympanic membrane of right ear; Otitis interna, right 10/26/2024 2:00 PM EDT Office Visit [facility] [address] [place] [address] Linda Lozada APRN-CNP Diabetes mellitus type 1, controlled, insulin dependent ([facility]) (Primary Dx); Mixed hyperlipidemia 10/17/2024 [address] [place] [address] Linda Lozada APRN-CNP from Last 3 Months Immunizations Immunization Administration Dates Next Due Influenza (IM) Preservative Free 03/19/2024 Influenza, Injectable, quadrivalent (PF) 020 Pneumococcal Conjugate 13-Valent 08/22/2016 Pneumococcal Conjugate 20-valent 07/27/2024 Pneumococcal Polysaccharide 03/05/2011 Zoster Vaccine Recombinant 03/19/2024,01/30/2024 Family History Relation Name Status Comments Father Alive Mother Social History Tobacco Use Types Packs/Day Years Used Date Smoking Tobacco: Never Passive Smoke Exposure: Never Smokeless Tobacco: Never Tobacco Cessation:Counseling Given: No Alcohol Use Standard Drinks/Week Comments Yes 0 (1 standard drink = 0.6 oz pur e alcohol) Occ. 1-2 on the weekends Childcare Answer Date Recorded Childcare Unknown 11/23/2018 Employment Answer Date Recorded Employment Unknown 11/23/2018 Hunger Screening Answer Date Recorded Within the past 12 months we worried whether our food would run out before we got money to buy more. Never True 10/26/2024 Within the past 12 months th e food we bought just didn't last and we didn't have money to get more. Never True 10/26/2024 Purpose - Life Answer Date Recorded Purpose and direction in life Unknown Sex and Gender Information Value Date Recorded Sex Assigned at Not on file Legal Sex Male 1:57 PM EDT Gender Identity Not on file Sexual Orientation Not on file Last Filed Vital Signs Vital Sign Reading Time Taken Comments Blood Pressure 140/82 12/09/2024 11:21 AM EDT Pulse 79 12/09/2024 11:21 AM EDT Temperature 36.4 C (97.5 F) 12/09/2024 11:21 AM EDT Respiratory Rate 15 02/13/2023 3:30 PM EDT Oxygen Saturation 97% 12/09/2024 11: 21 AM EDT Inhaled Oxygen Concentration - - Weight 67.9 kg (149 lb 12.8 oz) 025 11:21 AM EDT Height 175.3 cm (5' 9.02 ) 12/09/2024 1 1:21 AM EDT Body Mass Index 22.11 12/09/2024 11:21 AM EDT Plan of Treatment Upcoming Encounters Date Type Department Care Team (Late st Contact Info) Description 01/27/2025 2:00 PM EDT Office Visit [facility] [address] [place] [address] Linda Lozada, PLASTIC JIG AND FIXTURE BUILDER-CLINICAL ADMINISTRATIVE COORDINATOR [address] [place] [address] Health Maintenance Due Date Last Done Comments Diabetic Ophthalmology Exam 1962 Depression Screening 1974 Influenza Vaccine 02/14/2025 03/19/2024, 02/28/2020 Diabetic Foot Exam 07/27/2025 07/27/2024, 0 07/27/2024, 03/19/2024, Additional history exists COVID-19 Vaccine ( season) 2025 05/30/2023, 06/03/2021, 09/30/2020, Additional history exists Postponed from 02/15/2024 (Vaccine Not Available) DTaP,Tdap and Td Vaccines (1 - Tdap) 10/26/2025 Postponed from 1981 (Patient Refused) Adult BMI Screening 12/09/2025 12/09/2024 Tobacco Screening 12/09/2025 12/09/2024 Zoster (Shingles) Vaccine Completed 03/19/2024, Medical Devices Not on file Procedures Procedure Name Priority Date/Time Associated Diagnosis Comments POCT HEMOGLOBIN A1C Routine 10/26/2024 2 :17 PM EDT Diabetes mellitus type 1, controlled, insulin dependent ([facility]) from Last 3 Months Results * POCT Hemoglobin A1c (10/26/2024 2:17 PM EDT) External Poct Hgb A1C 6.8 4 - 7 % MANUALLY TRANSCRIBED RESULTS ADA Target < 8 Yes ALISSA MARTINEZ TRANSCRIBED RESULTS Blood 10/26/2024 2:17 PM EDT Linda Lozada PLASTIC JIG AND FIXTURE BUILDER-CLINICAL ADMINISTRATIVE COORDINATOR POINT OF CARE TEST ORD ERABLES Final Result MANUALLY TRANSCRIBED RESULTS from Last 3 Months Insurance [employer] Care Teams Manager Delivery Relationship Specialty Start Date End Date Linda Lozada, PLASTIC JIG AND FIXTURE BUILDER-CLINICAL ADMINISTRATIVE COORDINATOR [address] [place] [address] PCP - General Family Medicine 09/17/22
--- OUTSIDE RECORDS SUMMARY | 2025-01-17 16:27 | XMS_ITS | Encounter Summary ---
Author Organization [facility] Address [address] [place] [address] Care Team Providers Care Golf Course Manager Name Role Phone Alejandro Umaña MD Primary Care Provider [phone] Alejandro Umaña MD Unavailable [phone] Encounter Details Date Type Department Care Team (Late st Contact Info) Description 12/17/2023 Clinisync Result Encounter [facility] External Department [place] [address] [place] [address] Social History Tobacco Use Types Packs/Day Years Used Date Smoking Tobacco: Never Smokeless Tobacco: Never Alcohol Use Standard Drinks/Week Comments Yes 0 (1 standard drink = 0.6 oz pur e alcohol) 6+ less than monthly Sex and Gender Information Value Date Recorded Sex Assigned at Not on file Legal Sex Male 8:05 PM EDT Gender Identity Not on file Sexual Orientation Not on file documented as of this encounter Plan of Treatment Not on file documented as of this encounter Procedures Procedure Name Priority Date/Time Associated Diagnosis Comments CT HEAD WO CONTRAST 12/17/2023 1 1:42 AM EDT documented in this encounter Results * CT HEAD WO CONTRAST (12/17/2023 11:42 AM EDT) Anatomical Region Laterality Modality Other 12/17/2023 11:4 2 AM EDT Narrative 12/17/2023 11:47 AM EDT EXAMINATION: CT OF THE HEAD [...] identified. IMPRESSION: Normal CT of the brain. Interpreted by: Dane Zuñiga MD Signed by: Dane Zuñiga MD 12/17/23 Final result Procedure Note Radiology, Radiologist, MD - 12/17/2023 EXAMINATION: CT OF THE [...] identified. IMPRESSION: Normal CT of the brain. Interpreted by: Dane Zuñiga MD Signed by: Dane Zuñiga MD 12/17/23 Final result Alejandro Umaña MD [facility] Final Result documented in this encounter Visit Diagnoses Not on filedocumented in this encounter Care Teams Golf Course Manager Relationship Specialty Start Date [place] [address] [place] [address] PCP - General Family Medicine 11/27/22 [place] [address] [place] [address] PCP - Medical [place] [employer] 06/16/15 06/15/99 documented as of this encounter
--- OUTSIDE RECORDS SUMMARY | 2025-01-17 16:27 | XMS_ITS | Encounter Summary ---
Author Organization [facility] Address [address] [place] [address] Care Team Providers Care Business Attorney Name Role Phone Alejandro Umaña MD Primary Care Provider [phone] Alejandro Umaña MD Unavailable [phone] Encounter Details Date Type Department Care Team (Late st Contact Info) Description 12/25/2022 Abstract [facility] [address] [address] [place] [address] [address] Social History Tobacco Use Types Packs/Day Years Used Date Smoking Tobacco: Never Smokeless Tobacco: Never Tobacco Cessation:Counseling Given: Not Answered Alcohol Use Standard Drinks/Week Comments Yes 0 [...] on file documented as of this encounter Visit Diagnoses Not on filedocumented in this encounter Care Teams Business Attorney Relationship Specialty Start Date [place] [address] [address] PCP - General Family Medicine 11/27/22 [place] [address] [address] PCP - Medical [place] [employer] 06/16/15 06/15/99 documented as of this encounter
--- OUTSIDE RECORDS SUMMARY | 2025-01-17 16:27 | XMS_ITS | Clinical Summary ---
Author Organization [facility] Address [address] [place] [address] [place] [address] Care Team Providers Care Under Trimmer Name Role Phone Alejandro Uamña MD Primary Care Provider [phone] Alejandro Umaña MD Unavailable [phone] Allergies Active Allergy Reactions Criticality Noted Date Comments Dust Mite Extract 07/19/2015 Medications aspirin 81 MG EC tablet Take 81 mg by mouth in the morning. Active fluticasone (Flonase) 50 MCG/ACT nasal spray Administer 1 spray into each nostril 1 (one) time each day at the same time. Active Glucosamine-Magdaleno droitin 500-400 MG capsule Take 1 capsule by mouth 1 (one) time each day. Active insulin glargine (Basaglar KwikPen) 100 UNIT/ML pen Inject 10 Units under the skin in the morning and 10 Units in the evening. 3 Active Insulin Lispro (HUMALOG PEN SC) Inject under the skin 3 (three) times a day with meals. Active loratadine (Claritin) 10 MG tablet Take 1 tablet by mouth in the morning. Active meclizine (Antivert) 25 MG tablet Take 25 mg by mouth 3 (three) times a day as needed for dizziness. 3 Active therapeutic multivitamin-min erals (Theragran-M) tablet Take 1 tablet by mouth in the morning. Active Continuous Blood Gluc Sensor (Dexcom G6 Sensor) misc Active NovoLOG FLEXPEN 100 UNIT/ML pen PLEASE SEE ATTACHED FOR DETAILED DIRECTIONS 4 Active Tresiba FlexTouch 100 UNIT/ML injection INJECT 14 TO 16 UNITS UNDER THE SKIN IN THE MORNING 4 Active ondansetron (Zofran) 4 MG tabletIndication s:Acute intractable tension-type headache Take 1 tablet (4 mg) by mouth at bedtime 30 tablet 4 Active Active Problems Problem Noted Date Diagnosed Date Chronic sinusitis 05/31/2024 Diabetes mellitus type 1, controlled, insulin de pendent 09/17/2022 Mixed hyperlipidemia 07/30/2022 Family History Medical History Relation Name Comments Diabetes Father Hypertension Mother Stroke Mother Relation Name Status Comments Father Alive Mother [...] Sign Reading Time Taken Comments Blood Pressure 134/84 05/31/2024 3:51 PM EST Pulse 61 05/31/2024 3:51 PM EST Temperature 36.5 C (97.7 F) 05/31/2024 3:51 PM EST Respiratory Rate - - Oxygen Saturation 99% 05/31/2024 3:51 PM EST Inhaled Oxygen Concentration - - Weight 68 kg (150 lb) 05/31/2024 3:51 PM EST Height 177.8 cm (5' 10 ) 05/31/2024 3:51 PM EST Body Mass Index 21.52 05/31/2024 3:51 PM EST Plan of Treatment Health Maintenance Due Date Last Done Comments CT Colonography 1962 FIT-DNA 1962 FIT 1962 FOBT 1960 Sigmoidoscopy 1962 Diabetes: Retinopathy Screening 05/23/2023 1, 07/07/2019 Diabetes: Hemoglobin A1C 07/24/2024 024, 01/30/2024, 11/14/2022, Additional history exists Influenza Vaccine (#1) 2025 4, 04/01/2022, 03/13/2021, Additional history exists Diabetes: Urine Protein Screening 04/23/2025 04/23/2024, 04/23/2024, 06/06/2023, Additional history exists Colonoscopy 10/31/2031 10/30/2021 Colorectal Cancer Screening 10/31/2031 Procedures Procedure Name Priority Date/Time Associated Diagnosis Comments HEMOGLOBIN A1C Routine 01/30/2024 11:54 AM EDT MICROALBUMIN / CREATININE URINE RATIO Routine 07/11/2022 COLONOSCOPY Routine 10/30/2021 12:00 PM EDT COLOR FUNDUS PHOTOGRAPHY - OU - BOTH EYES Routine 05/23/2021 12:00 PM EST from Last 3 Months or Most Recently Relevant to Health Maintenance Results * (ABNORMAL) Hemoglobin A1c (01/30/2024 11:54 AM EDT) HEMOGLOBIN A1C 7.2 Blood Venous blood specimen / Unknown us Alejandro Umaña MD LAB BLOOD ORDERABLES Edited Re sult - Final * Microalbumin / creatinine urine ratio (07/11/2022) CREATININE, RANDOM URINE 23 20 - 320 [facility] ALBUMIN, URINE <0.2 See Note: [facility] Comment: Reference Range: Reference Range Not established MICROALBUMIN/CREAT ININE RATIO, RANDOM URINE NOTE <30 [facility] Comment: NOTE: The urine albumin value is less than 0.2 mg/dL therefore we are unable to calculate excretion and/or creatinine ratio. The ADA defines abnormalities in albumin excretion as follows: Albuminuria Category Result (mcg/mg creatinine) Normal to Mildly increased <30 Moderately increased 30-299 Severely increased > OR = 300 The ADA recommends that at least two of three specimens collected within a 3-6 month period be abnormal before considering a patient to be within a diagnostic category. 07/11/2022 us Alejandro Umaña MD LAB URINE ORDERABLES Final Res ult [facility] * Colonoscopy (10/30/2021 12:00 PM EDT) Anatomical Region Laterality Modality Endoscopy 10/30/2021 12:0 0 PM EDT Narrative 10/30/2021 12:00 PM EDT PERFORMED AT [facility] LOCATION:[id number] see attached Procedure Note CONVERSION, GENERIC - 10/30/2022 PERFORMED AT [facility] LOCATION:[id number] see attached us Alejandro Umaña MD ENDOSCOPY PROCEDURE ORDERABLES Final Result * Color Fundus Photography - OU - Both Eyes (05/23/2021 12:00 PM EST) Anatomical Region Laterality Modality Head Fundus Photograp hy 05/23/2021 12:0 0 PM EST Narrative 05/23/2021 12:00 PM EST PERFORMED AT [facility] LOCATION:[id number] [facility] Procedure Note CONVERSION, GENERIC - 10/30/2022 PERFORMED AT [facility] LOCATION:[id number] [facility] Alejandro Umaña MD OPHTH PHOTOGRAPHY Final Result from Last 3 Months or Most Recently Relevant to Health Maintenance Insurance [employer] Care Teams Under Trimmer Relationship Specialty Start Date [place] [address] [place] [address] PCP - General Family Medicine 11/27/22 Alej[place] [address] [place] [address] PCP - Medical [place] [employer] 06/16/15 06/15/99
--- OUTSIDE RECORDS SUMMARY | 2025-01-17 16:27 | XMS_ITS | Encounter Summary ---
Author Organization [facility] Address [address] [place] [address] Care Team Providers Care Hop Strainer Name Role Phone Alejandro Umaña MD Primary Care Provider [phone] Alejandro Umaña MD Unavailable [phone] Encounter Details Date Type Department Care Team (Late st Contact Info) Description 03/24/2024 Orders Only [facility] [place] [facility] [address] [place] [address] [place] [address] [place] [address] Social History Tobacco Use Types Packs/Day Years [...] HEMOGLOBIN A1C Routine 01/30/2024 11:54 AM EDT documented in this encounter Results * (ABNORMAL) Hemoglobin A1c (01/30/2024 11:54 AM EDT) HEMOGLOBIN A1C 7.2 Blood Venous blood specimen / Unknown us Alejandro Umaña MD LAB BLOOD ORDERABLES Edited Re toshat - Final documented in this encounter Visit Diagnoses Not on filedocumented in this encounter Care Teams Hop Strainer Relationship Specialty Start [place] [address] [place] [address] PCP - General Family Medicine 11/27/22 [place] [address] [place] [address] PCP - Medical [place] [employer] 06/16/15 06/15/99 documented as of this encounter
--- OUTSIDE RECORDS SUMMARY | 2025-01-17 16:27 | XMS_ITS | Clinical Summary ---
Author Organization [facility] Address [address], [address] [place] [address] Care Team Providers Care Gopherman Name Role Phone Alejandro Umaña MD Primary Care Provider Allergies Active Allergy Reactions Criticality Noted Date Comments Dust Mite Extract 07/19/2015 Medications loratadine (CLARITIN) 10 MG tablet Take 1 tablet by mouth daily Active Multiple Vitamins-Minera ls (THERAPEUTIC MULTIVITAMIN-MN NERALS) tablet Take 1 tablet by mouth daily Active Glucosamine-Cho ndroitin (GLUCOSAMINE CHONDR COMPLEX PO) Take by mouth Active albuterol sulfate HFA (PROAIR HFA) 108 (90 BASE) MCG/ACT inhaler 2 PUFFS QID FOR 7 DAYS THEN PRN 1 Inhaler 7 Active Additional Information Patient not taking.Reported on 10/18/2021 insulin lispro (HUMALOG) 100 UNIT/ML pen Inject into the skin 3 times daily (before meals) Sliding scale 150-200: 2 units 201-250: 4 units 251-300: 6 units 301-350: 8 units 351-400: 10 units BS <70 or >400 Call Active guaiFENesin (MUCINEX) 600 MG extended release tablet Take 2 tablets by mouth 2 times daily 40 tablet 7 Active Additional Information Patient not taking.Reported on 11/25/2022 tamsulosin (FLOMAX) 0.4 MG capsule Take 1 capsule by mouth daily 30 capsule 0 Active Additional Information Patient not taking.Reported on 10/18/2021 docusate sodium (COLACE) 100 MG capsule Take 1 capsule by mouth 2 times daily 30 capsule 0 Active Additional Information Patient not taking.Reported on 10/18/2021 atorvastatin (LIPITOR) 10 MG tablet Take 10 mg by mouth daily Active insulin glargine (LANTUS SOLOSTAR) 100 UNIT/ML injection Inject 10 Units into the skin 2 times daily Active aspirin 81 MG EC tablet Take 1 tablet by mouth daily 30 tablet 3 3 Active meclizine (ANTIVERT) 25 MG tablet Take 1 tablet by mouth 3 times daily as needed for Dizziness 30 tablet 3 Active Active Problems Problem Noted Date Diagnosed Date Vertebral artery stenosis, left 11/25/2022 Diabetes 1.5, 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 Pneumonia of both lungs due to infectious organi sm 08/07/2016 Hemoptysis 08/07/2016 Cough due to bronchospasm 06/19/2016 Ear pain, referred 01/25/2016 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 Wrist pain, acute 08/09/2015 Acute recurrent maxillary sinusitis 08/09/2015 Immunizations Immunization Administration Dates Next Due Pneumococcal, PCV-13, PREVNAR 13, (age 6w+), IM, 0.5mL 08/22/2016 Family History Medical History Relation Name Comments Hypertension Brother Stroke Mother Relation Name Status Comments Brother Mother Social History Tobacco Use Types Packs/Day [...] Orientation Bisexual 09/04/2019 4: 11 PM EDT Last Filed Vital Signs Vital Sign Reading Time Taken Comments Blood Pressure 139/75 11/26/2022 8:09 AM EDT Pulse 96 11/26/2022 8:09 AM EDT Temperature 36.7 C (98.1 F) 11/26/2022 8:09 AM EDT Respiratory Rate 17 11/26/2022 6:10 AM EDT Oxygen Saturation 96% 11/26/2022 6:10 AM EDT Inhaled Oxygen Concentration - - Weight 70.3 kg (155 lb) 11/25/2022 6:26 PM EDT Height 175.3 cm (5' 9 ) 11/25/2022 6:26 PM EDT Body Mass Index 22.89 11/25/2022 6:26 PM EDT Plan of Treatment Health Maintenance Due Date Last Done Comments A1C test (Diabetic or Prediabetic) 1972 Diabetic foot exam 1972 Depression Screen 1974 HIV screen 1977 Diabetic retinal exam 1980 Hepatitis C screen 1980 DTaP/Tdap/Td vaccine (1 - Tdap) 1981 FIT/FOBT: Average risk 2007 Fecal-DNA (Cologuard): Average risk 2007 Sigmoidoscopy/CT colonography 2007 Shingles vaccine (1 of 2) 2012 Pneumococcal 50+ years Vaccine (3 of 3 - PCV20 or PCV21) 08/22/2021 08/22/2016, 03/05/2011 Respiratory Syncytial Virus (RSV) or age 60 yrs+ (1 - Risk 60-74 years 1-dose series) 2022 Lipids 10/03/2022 10/03/2021 Diabetic Alb to Cr ratio (uACR) test 10/11/2022 10/11/2021 GFR test (Diabetes, CKD 3-4, OR last GFR 15-59) 11/27/2023 11/26/2022, 11/25/2022, 09/11/2019, Additional history exists COVID-19 Vaccine (2023- season) 2024 05/30/2023, 09/30/2020, 09/09/2020 Flu vaccine (#1) 01/14/2025 02/28/2020 Colonoscopy 10/31/2031 10/30/2021, 07/17/2014 Colorectal Cancer Screen 10/31/2031 Pneumococcal 0-49 years Vaccine Discontinued 08/22/2016, 03/05/2011 Hepatitis A vaccine Aged Out No longe r eligible based on patient's age to complete this topic Hepatitis B vaccine Aged Out No longe r eligible based on patient's age to complete this topic Hib vaccine Aged Out No longer eligi ble based on patient's age to complete this topic Meningococcal (ACWY) vaccine Aged Out No longer eligible based on patient's age to complete this topic Meningococcal B vaccine Aged Out No l onger eligible based on patient's age to complete this topic Polio vaccine Aged Out No longer elig ible based on patient's age to complete this topic Procedures Procedure Name Priority Date/Time Associated Diagnosis Comments BASIC METABOLIC PANEL Routine 11/26/2022 5:54 AM EDT MICROALBUMIN, UR Routine 10/11/2021 3:07 PM EDT LIPID PANEL Routine 10/03/2021 6:12 AM EDT from Last 3 Months or Most Recently Relevant to Health Maintenance Results * (ABNORMAL) Basic Metabolic Panel (11/26/2022 5:54 AM EDT) Glucose 190(H) 70 - 99 mg/dL 11/26/2022 5:54 AM EDT [facility] BUN 16 8 - 23 mg/dL 11/26/2022 5:54 AM EDT [facility] Creatinine 0.82 0.70 - 1.20 mg/dL 11/26/2022 5:54 AM EDT [facility] Est, Glom Filt Rate >60 >60 mL/min/1.7 3m2 11/26/2022 5:54 AM EDT [facility] Comment: These results are not intended for [...] following therapy that affects renal tubular secretion. Calcium 8.9 8.6 - 10.4 mg/dL 11/26/2022 5:54 AM EDT [facility] Sodium 141 135 - 144 mmol/L 11/26/2022 5:54 AM EDT [facility] Potassium 4.2 3.7 - 5.3 mmol/L 11/26/2022 5:54 AM EDT [facility] Chloride 105 98 - 107 mmol/L 11/26/2022 5:54 AM EDT [facility] CO2 26 20 - 31 mmol/L 11/26/2022 5:54 AM EDT [facility] Anion Gap 10 9 - 17 mmol/L 11/26/2022 5:54 AM EDT [facility] BLOOD SPECIMEN / Unknown 11/26/2022 5:54 AM EDT 11/26/2022 5:55 AM EDT Rosetta Gallardo DO CHEMISTRY ORDERABLES Final Resu lt [facility] [address] [place] [address], [facility] [phone] * Microalbumin, Ur (10/11/2021 3:07 PM EDT) Albumin Urine <12 <21 mg/L 10/11/2021 3:07 PM EDT [facility] Creatinine, Ur 59.2 39.0 - 259.0 mg/dL 10/11/2021 3:07 PM EDT [facility] Microalb/Link Trainer Mechanic. Ratio Can not be calculated <17 mcg/mg creat 10/11/2021 3:07 PM EDT [facility] wishkicker 10/11/2021 3:07 PM EDT 10/11/2021 3:07 PM EDT Ada Akhtar CPNP URINE ORDERABLES Final R esult Performing Organization Address City/[facility]/ZIP Co de Phone Number [facility] [address] [place] [address], [facility] [phone] * Lipid Panel (10/03/2021 6:12 AM EDT) Cholesterol 193 <200 mg/dL 10/03/2021 6:12 AM EDT [facility] Comment: Cholesterol Guidelines: <200 Desirable 200-240 Borderline >240 Undesirable HDL 68 >40 mg/dL 10/03/2021 6:12 AM EDT [facility] Comment: HDL Guidelines: <40 Undesirable 40-59 Borderline >59 Desirable LDL Cholesterol 114 0 - 130 mg/dL 10/03/2021 6:12 AM EDT [facility] Comment: LDL Guidelines: <100 Desirable 100-129 Near to/above Desirable 130-159 Borderline >159 Undesirable Direct (measured) LDL and calculated LDL are not interchangeable tests. Chol/HDL Ratio 2.8 <5 10/03/2021 6:12 AM EDT [facility] Comment: Triglycerides 53 <150 mg/dL 10/03/2021 6:12 AM EDT [facility] Comment: Triglyceride Guidelines: <150 Desirable 150-199 Borderline 200-499 High >499 Very high Based on AHA Guidelines for fasting triglyceride, March 2012. 10/03/2021 6:12 AM EDT 10/03/2021 6:17 AM EDT us Hudson Tavares MD CHEMISTRY ORDERABL ES Final Result [facility] [address] [place] [address], [facility] [phone] from Last 3 Months or Most Recently Relevant to Health Maintenance Insurance [employer] Member Subscriber Plan / Payer (Ef fective 2015-Present) Name:Sd Cardozo Relation to Subscriber:Self Name:Sd Cardozo Payer ID:Not on file Type:Not on file Address: [address] [place] [phone] [employer] Member Subscriber Plan / Payer (Ef fective 2015-Present) Name:Sd Cardozo Relation to Subscriber:Self Name:Sd Cardozo Payer ID:Not on file Type:Not on file Address: [address] [place] [phone] [employer] Member Subscriber Plan / Payer (Ef fective 2015-Present) Name:Sd Cardozo Relation to Subscriber:Self Name:Sd Cardozo Payer ID:Not on file Type:Not on file Address: [address] [place] [phone] [employer] Advance Directives * Full Code (Latest Code Status on File) Date Activated Date Inactivated Comments 11/26/2022 3:41 AM 11/26/2022 7:24 PM * Full Code Date Activated Date Inactivated Comments 08/06/2016 12:55 PM 08/08/2016 11:55 AM * Full Code Date Activated Date Inactivated Comments 09/28/2013 3:25 PM 09/29/2013 8:00 PM Care Teams G[place]man Relationship Specialty Start Date End Date Alejandro Umaña MD PCP - General Family Medicine 09/03/19
--- OUTSIDE RECORDS SUMMARY | 2025-01-17 16:27 | XMS_ITS | Encounter Summary ---
Author Organization [employer] [facility] Address [id number] [place] [address] Care Team Providers Care Technology Internship Name Role Phone Linda Lozada HEADER MACHINE OPERATOR-ASSISTANT PROFESSOR OF DRAMA Primary Care Provider Reason for Visit * Reason Comments Med Refill Encounter Details Date Type Department Care Team ([facility] Contact Info) Description 10/11/2022 Refill [facility] [address] [place] [address] Linda Lozada, [facility] [address] [place] [address] Diabetes mellitus type 1, controlled, insulin dependent ([facility]) Social History Tobacco Use Types Packs/Day Years Used Date Smoking Tobacco: Never Smokeless Tobacco: Never Alcohol Use Standard Drinks/Week Comments Yes 0 (1 standard drink = 0.6 oz pur e alcohol) Occ. 1-2 on the weekends Childcare Answer Date Recorded Childcare Unknown 11/23/2018 Employment Answer Date Recorded Employment Unknown 11/23/2018 Purpose - Life Answer Date Recorded Purpose and direction in life Unknown Sex and Gender Information Value Date Recorded Sex Assigned at Not on file Legal Sex Male 1:57 PM EDT Gender Identity Not on file Sexual Orientation Not on file documented as of this encounter Plan of Treatment Upcoming Encounters Date Type Department Care Team ([facility] Contact Info) Description 01/27/2025 2:00 PM EDT Office Visit [facility] [address] [place] [address] Linda Lozada, [place]-ASSISTANT PROFESSOR OF DRAMA [address] [place] [address] documented as of this encounter Visit Diagnoses Diagnosis Diabetes mellitus type 1, controlled, insulin dependent ([facility]) documented in this encounter Care Teams Technology Internship Relationship Specialty Start Date End Date Linda Lozada, HEADER MACHINE OPERATOR-ASSISTANT PROFESSOR OF DRAMA [address] [place] [address] PCP - General Family Medicine 09/17/22 documented as of this encounter
--- OUTSIDE RECORDS SUMMARY | 2025-01-17 16:27 | XMS_ITS | Encounter Summary ---
Author Organization [facility] Address [address] [place] [address] [place] [place] [address] Care Team Providers Care Shop Girl Name Role Phone Alejandro Umaña MD Primary Care Provider [phone] Alejandro Umaña MD Unavailable [phone] Encounter Details Date Type Department Care Team (Late st Contact Info) Description 06/05/2023 Abstract [facility] [address] [address] [place] [address] [id number] Social History Tobacco Use Types Packs/Day Years [...] on filedocumented in this encounter Care Teams Shop Girl Relationship Specialty Start Date [place] [address] [address] PCP - General Family Medicine 11/27/22 [place] [address] [id number] PCP - Medical [place] [employer] 06/16/15 06/15/99 documented as of this encounter
[2025-01-19 04:07] LABS: PSA, Free 0.53 ng/mL
== END 2025-01-17 16:23 | disposition home or self-care (01) ==
PROVIDERS: PCP Family Medicine; Visit Provider Urology
DX: R97.20 Elevated prostate specific antigen [PSA] (principal)
CPT/HCPCS: 36415; 84153; 84154

== ENCOUNTER 2025-03-26 14:01 | Outpatient (OUT) | payer OTHER, SELFPAY ==
--- OUTSIDE RECORDS SUMMARY | 2025-03-26 14:04 | XMS_ITS | CCD ---
Author Organization [facility] Care Team Providers Care Mold Maintenance Technician Name Role Phone Alejandro Umaña Primary Care Provider ADA AKHTAR Referring Unavailable ALEJANDRO UMAÑA Primary Care Unavailable Alejandro Umaña Primary Care Provider ANGELIQUE ., DR ALVAREZ Admitting Unavailable ANGELIQUE ., DR ALVAREZ Attending Unavailable ANGELIQUE ., DR ALVAREZ Consulting Unavailable MD Kim Ortiz Attending Provider [phone] MD Alejandro Umaña Primary Care Provider Alejandro Umaña Primary Care Unavailable Kim Ortiz Attending Unavailable Kim Ortiz Admitting Unavailable Alejandro Umaña MD Primary Care Provider [phone] ALEJANDRO UMAÑA Attending Unavailable ALEJANDRO UMAÑA Referring Unavailable ALEJANDRO UMAÑA Primary Care Unavailable ALEJANDRO UMAÑA Referring Unavailable ALEJANDRO UMAÑA Primary Care Unavailable ALEJANDRO UMAÑA Attending Unavailable ALEJANDRO UMAÑA Referring Unavailable ALEJANDRO UMAÑA Primary Care Unavailable ALEJANDRO UMAÑA Primary Care Physician CHANI WEINBERG Referring Unavailable CHANI WEINBERG Primary Care Unavailable CHANI WEINBERG Referring Unavailable CHANI WEINBERG Primary Care Unavailable Alejandro Umaña MD Primary Care Provider Alejandro Umaña MD Unavailable [phone] ALEJANDRO UMAÑA Attending Unavailable PRATIMA CORTES Attending Unavailable Chani Connelly Primary Care Provider Livingood CHILD SUPPORT INVESTIGATOR-JUNIOR NETWORK ADMINISTRATOR, Chani M Primary Care Provider Kim ORTIZ Attending Unavailable Kim ORTIZ Attending Unavailable LIVINGOOD, CHANI M Attending Unavailable LIVINGOOD, [...] M Primary Care Unavailable LIVINGOOD, CHANI M Referring Unavailable LIVINGOOD, CHANI M Primary Care Unavailable Allergies Allergy Classification Reported Allergen(s) Allergy Type Date of Onset Reaction(s) Facility MITE EXTRACT (1 source) MITE EXTRACT Drug Allergy 6 [facility] (7 sources) MITE EXTRACT Drug Allergy 6 [place], [place] (17 sources) house dust allergenic extract; Translations: [HOUSE DUST] Drug Allergy 4 [facility] (4 sources) House dust mite Propensity to adverse reactions 6 [facility] Healthcare Medications Current Medications Medication Drug Class(es) Dates Sig (Normalized) Sig (Original) [id number] 200 actuat albuterol 0.09 mg/actuat metered dose inhaler (8 sources) beta2-Adrenergic Agonist Start: 06-19-2016 albuterol sulfate HFA (PROAIR HFA) 108 (90 BASE) MCG/ACT inhaler 2 PUFFS QID FOR 7 DAYS THEN PRN 1 Inhaler 0 06/19/2016 Active Start: 06-19-2016 albuterol sulf ate HFA (PROAIR HFA) 108 (90 BASE) MCG/ACT inhaler 2 PUFFS QID FOR 7 DAYS THEN PRN 1 Inhaler 0 06/19/2016 Active AMBULATORY COMPOUNDED MEDICATION (9 sources) Start: 03-19-2024 AMBULATORY COMPOUNDED MEDICATION Indications: Bilateral foot pain Apply 1 Application topically every 4 (four) hours as needed (neuopathhic pain). 120 g 11 03/19/2024 Active amoxicillin 875 mg oral tablet (1 source) Penicillin-class Antibacterial Start: 12-09-2024 End: 12-14-2024 amoxicillin (AMOXIL) 875 mg tablet Take 1 tablet (875 mg total) by mouth every 12 (twelve) hours for 5 days. To 7 days 20 tablet 12/09/2024 12/14/2024 Active ascorbic acid 60 mg / beta carotene 5000 unt / copper sulfate 40 mg / dl-alpha tocopheryl acetate 30 unt / sodium selenite 0.04 mg / zinc oxide 40 mg oral tablet (1 source) Vitamin C take 1 tablet by mouth once daily Multiple Vitamins-Minerals (THERAPEUTIC MULTIVITAMIN-MINERA LS) tablet Take 1 tablet by mouth daily 0 Active aspirin 81 mg delayed release oral tablet (12 sources) Platelet Aggregation Inhibitor, Nonsteroidal Anti-inflammatory Drug Start: 11-27-2022 End: 12-09-2023 take 1 tablet by mouth once daily aspirin 81 MG EC tablet Take 1 tablet by mouth daily 30 tablet 3 11/27/2022 Active atorvastatin 10 mg oral tablet (4 sources) HMG-CoA Reductase Inhibitor Start: 08-12-2022 atorvastatin 10 mg Tab Refills(s) 0 Start Date: 08/12/22 Status: Ordered Repeat number: 1 blood-glucose meter,continuous (DEXCOM G6 SENIOR PRODUCT ENGINEER) misc (18 sources) Start: 09-17-2022 blood-glucose meter,continuous (DEXCOM G6 SENIOR PRODUCT ENGINEER) misc Indications: Diabetes mellitus type 1, controlled, insulin dependent ([facility]) 1 Device by miscellaneous route continuously. 1 each 09/17/2022 Active Start: 09-17-2022 blood-glucose meter,continuous (DEXCOM G6 SENIOR PRODUCT ENGINEER) misc Indications: Diabetes mellitus type 1, controlled, insulin dependent (CMS-HCC) 1 Device by miscellaneous route continuously. 1 each 0 09/17/2022 Active blood-glucose meter,continuo us (DEXCOM G7 SENIOR PRODUCT ENGINEER) misc (12 sources) blood-glucose me ter,continuous (DEXCOM G7 SENIOR PRODUCT ENGINEER) misc Inject 1 each under the skin every 10 days. Active blood-glucose sensor (DEXCOM G6 SENSOR) device (18 sources) Start: 09-17-2022 blood-glucose sensor (DEXCOM G6 SENSOR) device Indications: Diabetes mellitus type 1, controlled, insulin dependent ([facility]) 1 each by miscellaneous route every 10 days. 10 each 09/17/2022 Active blood-glucose transmitter (D EXCOM G6 TRANSMITTER) device (18 sources) Start: 09-17-2022 blood-glucose transmitter (DEXCOM G6 TRANSMITTER) device Indications: Diabetes mellitus type 1, controlled, insulin dependent (CMS-HCC) 1 Device by miscellaneous route every 3 (three) months. 1 each 09/17/2022 Active chondroitin sulfates 400 mg / glucosamine hydrochloride 500 mg oral capsule (20 sources) glucosamine-magdaleno droitin 500-400 mg capsule Take by mouth. Active take 1 capsule by mouth once milan ly Glucosamine-Chondroitin 500-400 MG capsule Take 1 capsule by mouth 1 (one) time each day. Active Glucosamine-Magdaleno droitin (GLUCOSAMINE CHONDR COMPLEX PO) Take by mouth 0 Active Continuous Blood Gluc Sensor (Dexcom G6 Sensor) misc (4 sources) Continuous Blood Gluc Sensor (Dexcom G6 Sensor) misc Active docusate sodium 100 mg oral capsule (7 sources) Start: 09-11-2019 take 1 capsule by mouth twice daily docusate sodium (COLACE) 100 MG capsule Take 1 capsule by mouth 2 times daily 30 capsule 0 09/11/2019 Active fluticasone propionate 0.05 mg/actuat metered dose nasal spray (4 sources) Corticosteroid take 1 spray(s) nasal route once daily fluticasone (Flonase) 50 MCG/ACT nasal spray Administer 1 spray into each nostril 1 (one) time each day at the same time. Active Glucosamine (2 sources) Start: 09-10-2019 glucosamine Oral, Refills(s) 0 Start Date: 09/10/19 Status: Ordered Repeat number: 1 Start: 09-10-2019 glucosamine Or al, Refills(s) 0 Start Date: 09/10/19 Status: Ordered 12 hr guaiFENesin 600 mg extended release oral tablet (8 sources) Start: 08-08-2016 take 2 tablets by mouth twice daily guaiFENesin (MUCINEX) 600 MG extended release tablet Take 2 tablets by mouth 2 times daily 40 tablet 0 08/08/2016 Active 3 ml insulin aspart, human 100 unt/ml pen injector (20 sources) Insulin Analog Start: 06-21-2024 NovoLOG Flexpe n U-100 Insulin 100 unit/mL (3 mL) insulin pen Indications: Type 1 diabetes mellitus with hyperglycemia (CMS-HCC) INJECT 3-7 UNITS UNDER SKIN 4 TIMES A DAY WITH MEALS AND NIGHTLY. CARB COUNTING 1-2 UNITS FOR SNACKS *MAX 30 UNITS PER DAY* 30 mL 4 06/21/2024 Active Start: 12-08-2023 NovoLOG FLEXPE N 100 UNIT/ML pen PLEASE SEE ATTACHED FOR DETAILED DIRECTIONS 12/08/2023 Active Start: 04-13-2023 End: 06-21-2024 inject 30 [IU] by subcutaneous injection once daily at mealtime NovoLOG FlexPen U-100 Insulin 100 unit/mL (3 mL) insulin pen Indications: Type 1 diabetes mellitus with hyperglycemia (CMS-HCC) INJECT 3-7 UNITS UNDER THE SKIN 4 (FOUR) TIMES A DAY WITH MEALS AND NIGHTLY. CARB COUNTING 1-2 UNITS FOR SNACKS. MAX 30 UNITS PER DAY 30 mL 4 04/13/2023 06/21/2024 Discontinued Start: 08-12-2022 NovoLOG FlexPe n 100 units/mL injectable solution Refills(s) 0 Start Date: 08/12/22 Status: Ordered Repeat number: 1 3 ml insulin degludec 100 unt/ml pen injector (20 sources) Insulin Analog Start: 10-26-2024 insulin deglud ec (TRESIBA FLEXTOUCH U-100) 100 unit/mL (3 mL) insulin pen Indications: Diabetes mellitus type 1, controlled, insulin dependent (CMS-HCC) 8 units in morning and 5-8 units in evening 10/26/2024 Active Start: 12-22-2023 Tresiba FlexTo uch 100 units/mL subcutaneous solution Refills(s) 0 Start Date: 12/22/23 Status: Ordered Repeat number: 1 Start: 10-16-2023 End: 10-26-2024 insulin degludec (TRESIBA FL EXTOUCH U-100) 100 unit/mL (3 mL) insulin pen Indications: Diabetes mellitus type 1, controlled, insulin dependent (CMS-HCC) INJECT 14 TO 16 UNITS UNDER THE SKIN IN THE MORNING 15 mL 3 10/02/2024 10/26/2024 Discontinued Start: 10-16-2023 End: 10-02-2024 insulin degludec (TRESIBA U- 100 INSULIN) 100 unit/mL solution Indications: Diabetes mellitus type 1, controlled, insulin dependent ([facility] Inject 14-16 Unit under the skin in the morning. 30 mL 1 10/16/2023 10/02/2024 Discontinued Start: 09-04-2023 End: 10-16-2023 insulin degludec (TRESIBA FL EXTOUCH U-100) 100 unit/mL (3 mL) insulin pen Indications: Diabetes mellitus type 1, controlled, insulin dependent ([facility]) Inject 16 Units under the skin in the morning. 6 mL 09/04/2023 10/16/2023 Discontinued (Reorder) 3 ml insulin glargine 100 unt/ml pen injector (16 sources) Insulin Analog Start: 11-14-2022 End: 09-04-2023 inject 10 [IU] by subcutaneous injection in the morning insulin glargine (Basaglar KwikPen) 100 UNIT/ML pen Inject 10 Units under the skin in the morning and 10 Units in the evening. 11/14/2022 Active Start: 11-14-2022 inject 10 [IU] by hunt bcutaneous injection at bedtime insulin glargine (BASAGLAR KWIKPEN U-100 INSULIN) 100 unit/mL (3 mL) insulin pen Indications: Type 1 diabetes mellitus with hyperglycemia ([facility]) Inject 10 Units under the skin in the morning and at bedtime. 15 mL 4 11/14/2022 Active insulin glargine (LANTUS SOLOSTAR) 100 UNIT/ML injection Inject 10 Units into the skin 2 times daily 0 Active insulin glargine (BASAGLAR KWIKPEN) 100 UNIT/ML injection pen Inject 10 Units into the skin nightly (8 units in the am, 10 units at night- entered separately for accuracy) 0 Active Insulin Lispro (8 sources) Insulin Analog Insulin Lispro ( HUMALOG PEN SC) Inject under the skin 3 (three) times a day with meals. Active insulin lispro ( HUMALOG KWIKPEN) 100 UNIT/ML pen Inject into the [...] BS 400 Call 0 Active insulin lispro (HUMALOG) 100 UNIT/ML pen (1 source) insulin lispro (HUMALOG) 100 UNIT/ML pen Inject into the skin 3 times daily (before meals) Sliding scale 150-200: 2 units 201-250: 4 units 251-300: 6 units 301-350: 8 units 351-400: 10 units BS 400 Call 0 Active loratadine 10 mg oral tablet (20 sources) loratadine (CLARITIN) 10 mg tablet Take 1 tablet (10 mg total) by mouth. Active meclizine hydrochloride 25 mg oral tablet (5 sources) Antiemetic Start: 11-26-2022 take 1 tablet by mouth three times daily as needed for dizziness meclizine (Antivert) 25 MG tablet Take 25 mg by mouth 3 (three) times a day as needed for dizziness. 11/26/2022 Active Multi Vitamin+ (2 sources) Start: 09-10-2019 Multi Vitamin+ Refill(s) 0 Start Date: 09/10/19 Status: Ordered Repeat number: 1 Start: 09-10-2019 Multi Vitamin+ Refill(s) 0 Start Date: 09/10/19 Status: Ordered Multiple Vitamins-Minerals (THERAPEUTIC MULTIVITAMIN-MINERALS) tablet (7 sources) take 1 tablet by mouth once daily Multiple Vitamins-Minerals (THERAPEUTIC MULTIVITAMIN-MINERALS) tablet Take 1 tablet by mouth daily 0 Active Multivitamin preparation (18 sources) MULTIVITAMIN (MU LTIPLE VITAMINS ORAL) Take by mouth. Active MULTIVITAMIN (MU LTIPLE VITAMINS ORAL) Take by mouth. 0 Active ondansetron 4 mg oral tablet (4 sources) Serotonin-3 Receptor Antagonist Start: 12-16-2023 take 1 tablet by mouth at bedtime ondansetron (Zofran) 4 MG tablet Indications: Acute intractable tension-type headache Take 1 tablet (4 mg) by mouth at bedtime 30 tablet 12/16/2023 Active polymyxin b 50064 unt/ml / trimethoprim 1 mg/ml ophthalmic solution (1 source) Dihydrofolate Reductase Inhibitor Antibacterial, Polymyxin-class Antibacterial Start: 12-09-2024 End: 12-19-2024 trimethoprim-poly myxin B (POLYTRIM) 10,000 unit- 1 mg/mL drops Administer 1 drop to the right ear in the morning and 1 drop at noon and 1 drop in the evening and 1 drop before bedtime. Do all this for 10 days. 10 mL 12/09/2024 12/19/2024 Active rosuvastatin calcium 5 mg oral tablet (12 sources) HMG-CoA Reductase Inhibitor Start: 04-23-2024 End: 10-17-2024 take 1 tablet by mouth in the morning rosuvastatin (CRESTOR) 5 mg tablet TAKE 1 TABLET (5 MG TOTAL) BY MOUTH IN THE MORNING 90 tablet 1 10/17/2024 Active tamsulosin hydrochloride 0.4 mg oral capsule (8 sources) alpha-Adrenergic Jen Start: 09-03-2019 take 1 capsule by mouth once daily tamsulosin (FLOMAX) 0.4 MG capsule Take 1 capsule by mouth daily 30 capsule 0 09/03/2019 Active therapeutic multivitamin-train examiner als (Theragran-M) tablet (4 sources) take 1 tablet by mouth in the morning therapeutic multivitamin-mine rals (Theragran-M) tablet Take 1 tablet by mouth in the morning. Active tiotropium (1 source) Anticholinergic Start: 01-27-2025 take 2 puff(s) by inhalation in the morning tiotropium bromide 1.25 mcg/actuation mist Indications: Recurrent productive cough Inhale 2.5 mcg in the morning. 2 puffs. 4 g 5 01/27/2025 Active Completed/Discontinued Medications Medication Drug Class(es) Dates Sig (Normalized) Sig (Original) carbamide peroxide 65 mg/ml otic solution (3 sources) Start: 10-06-2023 End: 12-09-2023 carbamide peroxide (DEBROX) 6.5 % otic solution Indications: Otalgia of right ear Administer 5 drops to the right ear in the morning and 5 drops before bedtime. 15 mL 10/06/2023 12/09/2023 Discontinued clobetasol propionate 0.0005 mg/mg topical ointment (4 sources) Corticosteroid Start: 07-10-2023 End: 04-22-2024 clobetasoL (TEMOVATE) 0.05 % ointment Indications: 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 Apply 1 Application topically in the morning and 1 Application before bedtime. Max 14 days at one interval. 30 g 07/10/2023 10/06/2023 Discontinued (Therapy completed) ioversol (OPTIRAY) 74 % injection 75 mL [...] Translations: [Abdominal pain, right lower quadrant] Episodic Conditions associated with dizziness or vertigo (2 sources) Labyrinthitis of right inner ear; Translations: [Labyrinthitis, right ear] Onset: 12-09-2024 12-09-2024 Episodic Diabetes mellitus without complication (20 sources) Latent autoimmune diabetes mellitus in adult; Translations: [Other specified diabetes mellitus without complications] Onset: 11-27-2016 11-27-2016 Chronic Disorders of lipid metabolism (20 sources) Mixed hyperlipidemia; Translations: [Mixed hyperlipidemia] Onset: 07-30-2022 05-31-2024 Chronic Genitourinary symptoms and ill-defined conditions (1 source) Retention of urine; Translations: [Urinary retention] Episodic Headache; including migraine (2 sources) Tension-type headache; Translations: [Tension-type headache, unspecified, intractable] Onset: 12-16-2023 12-16-2023 Episodic Hyperplasia of prostate (8 sources) Benign prostatic hyperplasia with lower urinary tract symptoms; Translations: [Benign prostatic hypertrophy with outflow obstruction] Onset: 08-06-2022 Chronic Inflammatory conditions of male genital organs (2 sources) Prostatitis 07-22-2023 Episodic Occlusion or stenosis of precerebral arteries (19 sources) Stenosis of left vertebral artery; Translations: [Occlusion and stenosis of left vertebral artery] Onset: 11-25-2022 11-25-2022 Chronic Other ear and sense organ disorders (2 sources) Impacted cerumen in right ear; Translations: [Impacted cerumen, right ear] 05-31-2024 Episodic Other ear and sense organ disorders (2 sources) Pain of ear structure; Translations: [Otalgia, right ear] 05-31-2024 Episodic Other ear and sense organ disorders (1 source) Excessive cerumen in ear canal ; Translations: [Impacted cerumen, right ear] 12-09-2024 Episodic Other ear and sense organ disorders (1 source) Impacted cerumen, right ear; Translations: [Impacted cerumen, right ear] Onset: 12-09-2024 Episodic Other gastrointestinal disorders (1 source) Constipation; Translations: [Constipation, unspecified constipation type] Episodic Other hereditary and degenerative nervous system conditions (8 sources) Carotidynia; 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] Onset: 12-15-2015 12-15-2015 Chronic Other lower respiratory disease (1 source) Productive cough ; Translations: [Recurrent productive cough] 01-27-2025 Episodic Other upper respiratory infections (5 sources) Chronic sinusitis; Translations: [Chronic sinusitis, unspecified] Onset: 05-31-2024 05-31-2024 Chronic Otitis media and related conditions (2 sources) Acute suppurative otitis media without spontaneous rupture of ear drum; Translations: [Acute suppurative otitis media without spontaneous rupture of ear drum, right ear] Onset: 12-09-2024 12-09-2024 Episodic Screening and history of mental health and substance abuse codes (1 source) Patient encounter status; Translations: [Encounter for screening for depression] 01-27-2025 Episodic Unclassified (1 source) Other specified cough; Translations: [Other specified cough] Onset: 01-27-2025 Unclassified (1 source) Earache Onset: 12-09-2024 Unclassified (1 source) Annual Exam Onset: 04-23-2024 Past or Other Problems Problem Classification Problem Date Documented Da te Episodic/Chronic Allergic reactions (1 source) 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; Translations: [Other allergy, initial encounter] 07-10-2023 Episodic Complications of surgical procedures or medical care (1 source) Vascular complications following infusion, transfusion and therapeutic injection, initial encounter; Translations: [Vascular complications following infusion, transfusion and therapeutic injection, initial encounter] Onset: 3 Episodic Diabetes mellitus with complications (19 sources) Hyperglycemia due to type 1 diabetes mellitus; Translations: [Type 1 diabetes mellitus with hyperglycemia] Onset: 3 Resolved: 4 06-20-2024 Chronic Immunizations and screening for infectious disease (5 sources) Encounter for immunization; Translations: [Other specified vaccinations against streptococcus pneumoniae [pneumococcus]] Onset: 4 07-27-2024 Episodic Mood disorders (1 source) Mood disorders Onset: 5 01-27-2025 Other connective tissue disease (1 source) Pain in both feet; Translations: [Pain in right foot] 03-19-2024 Episodic Other connective tissue disease (1 source) Pain in right foot; Translations: [Pain in right foot] Onset: 4 Episodic Other connective tissue disease (1 source) Pain in left foot; Translations: [Pain in left foot] Onset: 4 Episodic Other connective tissue disease (1 source) Hand pain Onset: 4 Episodic Other ear and sense organ disorders (8 sources) Referred otalgia; Translations: [Otalgia, unspecified ear] Onset: 6 01-25-2016 Episodic Other ear and sense organ disorders (1 source) Otalgia, right ear; Translations: [Otalgia, unspecified] 10-06-2023 Episodic Other lower respiratory disease (8 sources) Hemoptysis; Translations: [Hemoptysis] Onset: 7 08-07-2016 Episodic Other nervous system disorders (1 source) Paresthesia; Translations: [Anesthesia of skin] 02-17-2024 Episodic Other non-traumatic joint disorders (8 sources) Pain in wrist; Translations: [Pain in unspecified wrist] Onset: 6 08-09-2015 Episodic Other screening for suspected conditions (not mental disorders or infectious disease) (9 sources) Elevated prostate specific antigen [PSA]; Translations: [Raised prostate specific antigen] Onset: 4 Episodic Other upper respiratory disease (8 sources) Bronchospasm; Translations: [Acute bronchospasm] Onset: 7 06-19-2016 Episodic Other upper respiratory infections (20 sources) Recurrent acute sinusitis; Translations: [Acute recurrent maxillary sinusitis] Onset: 6 Resolved: 3 08-09-2015 Episodic Phlebitis; thrombophlebitis and thromboembolism (1 source) Phlebitis and thrombophlebitis of unspecified site; Translations: [Phlebitis and thrombophlebitis of unspecified site] Onset: 3 Episodic Pneumonia (except that caused by tuberculosis or sexually transmitted disease) (8 sources) Infective pneumonia; Translations: [Pneumonia, unspecified organism] Onset: 7 08-07-2016 Episodic Residual codes; unclassified (1 source) History of clinical finding in subject; Translations: [Personal history of other specified conditions] 10-16-2023 Episodic Superficial injury; contusion (2 sources) Abrasion of lower limb; Translations: [Contusion of upper limb] 01-30-2024 Episodic Results Test Name Value Interpretation Reference Range Facility CBC WITH AUTO DIFFERENTIALon 01-27-2025 BASOPHILS ABSOLUTE COUNT (10*3/UL) BY AUTOMATED COUNT 0.1 10*3/uL Normal 0.0-0.2 [facility] Comment on above: Performed By: #### C BCA #### [facility] [address] [place] [address] VIR BASOPHILS RELATIVE PERCENT BY AUTOMATED COUNT 1.0 % Normal [facility] Comment on above: Performed By: #### C BCA #### [facility] [address] [place] [address] VIR CELLAVISION DIFFERENTIAL TYPE AUTOMATED DIFFERENTIAL Normal [facility] Comment on above: Performed By: #### C BCA #### [facility] [address] [place] [address] VIR Eosinophils (Bld) [#/Vol] 0.2 10*3/uL Normal 0.0-0.4 [facility] Comment on above: Performed By: #### C BCA #### [facility] [address] [place] [address] VIR EOSINOPHILS RELATIVE PERCENT BY AUTOMATED COUNT 2.6 % Normal [facility] Comment on above: Performed By: #### C BCA #### [facility] [address] [place] [address] VIR Erythrocyte distribution width (RBC) [Ratio] 13.1 % Normal 11.5-15 [facility] Comment on above: Performed By: #### C BCA #### [facility] [address] [place] [address] VIR Hematocrit (Bld) [Volume fraction] 41.3 % Normal 39-50 [facility] Comment on above: Performed By: #### C BCA #### [facility] [address] [place] [address] VIR Hemoglobin (Bld) [Mass/Vol] 13.9 g/dL Normal 13-17 [facility] Comment on above: Performed By: #### C BCA #### [facility] [address] [place] [address] VIR LYMPHOCYTES ABSOLUTE COUNT (10*3/UL) BY AUTOMATED COUNT 1.6 10*3/uL Normal 1.0-3.5 [facility] Comment on above: Performed By: #### C BCA #### [facility] [address] [place] [address] VIR LYMPHOCYTES RELATIVE PERCENT BY AUTOMATED COUNT 19.0 % Normal [facility] Comment on above: Performed By: #### C BCA #### [facility] [address] [place] [address] VIR MCH (RBC) [Entitic mass] 30.8 pg Normal 27-34 [facility] Comment on above: Performed By: #### C BCA #### [facility] [address] [place] [address] VIR MCHC (RBC) [Mass/Vol] 33.7 g/dL Normal 32-36 [facility] Comment on above: Performed By: #### C BCA #### [facility] [address] [place] [address] VIR MCV (RBC) [Entitic vol] 91 fL Normal 80-100 [facility] Comment on above: Performed By: #### C BCA #### [facility] [address] [place] [address] VIR MONOCYTES ABSOLUTE COUNT (10*3/UL) BY AUTOMATED COUNT 0.6 10*3/uL Normal 0.0-0.9 [facility] Comment on above: Performed By: #### C BCA #### [facility] [address] [place] [address] VIR MONOCYTES RELATIVE PERCENT BY AUTOMATED COUNT 7.2 % Normal [facility] Comment on above: Performed By: #### C BCA #### [facility] [address] [place] [address] VIR NEUTROPHILS ABSOLUTE COUNT BY AUTOMATED COUNT 6.0 10*3/uL Normal 1.5-6.6 [facility] Comment on above: Performed By: #### C BCA #### [facility] [address] [place] [address] VIR NEUTROPHILS RELATIVE PERCENT BY AUTOMATED COUNT 70.2 % Normal [facility] Comment on above: Performed By: #### C BCA #### [facility] [address] [place] [address] VIR Platelet mean volume (Bld) [Entitic vol] 8.8 fL Normal 7-12 [facility] Comment on above: Performed By: #### C BCA #### [facility] [address] [place] [address] VIR Platelets (Bld) [#/Vol] 189 10*3/uL Normal 150-450 [facility] Comment on above: Performed By: #### C BCA #### [facility] [address] [place] [address] VIR RBC COUNT 4.52 X10E12/L Normal 4.1-5.7 [facility] Comment on above: Performed By: #### C BCA #### [facility] [address] [place] [address] VIR WBC (Bld) [#/Vol] 8.5 10*3/uL Normal 4-11 [facility] Comment on above: Performed By: #### C BCA #### [facility] [address] [place] [address] VIR COMPREHENSIVE METABOLIC PANE Shant 01-27-2025 Albumin [Mass/Vol] 4.2 g/dL Normal 3.2-5.3 [facility] Comment on above: Performed By: #### C MP #### [facility] [address] [place] [address] VIR ALP [Catalytic activity/Vol] 86 U/L Normal 39-130 [facility] Comment on above: Performed By: #### C MP #### [facility] [address] [place] [address] VIR ALT [Catalytic activity/Vol] 27 U/L Normal <=40 [facility] Comment on above: Performed By: #### C MP #### [facility] [address] [place] [address] VIR Anion gap [Moles/Vol] 10 mmol/L Normal 5-15 [facility] Comment on above: Performed By: #### C MP #### [facility] [address] [place] [address] VIR AST [Catalytic activity/Vol] 22 U/L Normal <=41 [facility] Comment on above: Performed By: #### C MP #### [facility] [address] [place] [address] VIR Bilirubin [Mass/Vol] 0.4 mg/dL Normal 0.3-1.2 [facility] Comment on above: Performed By: #### C MP #### [facility] [address] [place] [address] VIR Calcium [Mass/Vol] 9.3 mg/dL Normal 8.5-10.5 [facility] Comment on above: Performed By: #### C MP #### [facility] [address] [place] [address] VIR Chloride [Moles/Vol] 101 mmol/L Normal 98-109 [facility] Comment on above: Performed By: #### C MP #### [facility] [address] [place] [address] VIR CO2 [Moles/Vol] 29 mmol/L Normal 22-32 [facility] Comment on above: Performed By: #### C MP #### [facility] [address] [place] [address] VIR Creatinine [Mass/Vol] 0.96 mg/dL Normal 0.60-1.30 [facility] Comment on above: Result Comment: METH OD TRACEABLE TO IDMS STANDARD Performed By: #### C MP #### [facility] [address] [place] [address] VIR GFR/1.73 sq M.predicted among non-blacks MDRD (S/P/Bld) [Vol rate/Area] 89 mL/min/{1.73_m2} Normal >=60 [facility] Comment on above: Result Comment: Repo rted eGFR is based on the CKD-EPI 2020 equation that does not use a race coefficient. Performed By: #### C MP #### [facility] [address] [place] [address] VIR Glucose [Mass/Vol] 177 mg/dL High 65-99 [facility] Comment on above: Performed By: #### C MP #### [facility] [address] [place] [address] VIR Potassium [Moles/Vol] 4.7 mmol/L Normal 3.5-5.0 [facility] Comment on above: Performed By: #### C MP #### [facility] [address] [place] [address] VIR Protein [Mass/Vol] 7.0 g/dL Normal 6.0-8.0 [facility] Comment on above: Performed By: #### C MP #### [facility] [address] [place] [address] VIR Sodium [Moles/Vol] 140 mmol/L Normal 134-146 [facility] Comment on above: Performed By: #### C MP #### [facility] [address] [place] [address] VIR Urea nitrogen [Mass/Vol] 18 mg/dL Normal 5-27 [facility] Comment on above: Performed By: #### C MP #### [facility] [address] [place] [address] VIR FERRITINon 01-27-2025 Ferritin [Mass/Vol] 107 ng/mL Normal 24-336 [facility] Comment on above: Performed By: #### F ERR #### [facility] [address] [place] [address] VIR HEMOGLOBIN A1Con 01-27-2025 Glucose [Mass/Vol] 151 mg/dL Normal [facility] Comment on above: Performed By: #### H A1C #### [facility] [address] [place] [address] VIR HbA1c (Bld) [Mass fraction] 6.9 % High 4.4-5.6 [facility] Comment on above: Result Comment: ADA Guidelines Result HgbA1c Normal : less than 5.7 % Prediabetes : 5.7 % to 6.4 % Diabetes : > 6.4 % Use with caution in patients with abnormal hemoglobin variants as the half-life of red blood cells and in vivo glycation rates are affected. Performed By: #### H A1C #### [facility] [address] [place] [address] VIR LIPID PROFILEon 01-27-2025 Cholesterol [Mass/Vol] 143 mg/dL Low 150-200 [facility] Comment on above: Performed By: #### L IPR #### [facility] [address] [place] [address] VIR Cholesterol in HDL [Mass/Vol] 69 mg/dL Normal >39 [facility] Comment on above: Result Comment: HDL <40 mg/dL - High Risk HDL > or = 40mg/dL- Desirable HDL >60 mg/dL - Negative Risk Performed By: #### L IPR #### [facility] [address] [place] [address] VIR Cholesterol in LDL [Mass/Vol] 60 mg/dL Normal <130 [facility] Comment on above: Result Comment: LDL <100 mg/dL - Desirable LDL >160 mg/dL - High Risk Performed By: #### L IPR #### [facility] [address] [place] [address] VIR CHOLESTEROL:HDL 2.1 Normal 1.0-5.0 [facility] Comment on above: Performed By: #### L IPR #### [facility] [address] [place] [address] VIR Triglyceride [Mass/Vol] 69 mg/dL Normal 27-150 [facility] Comment on above: Performed By: #### L IPR #### [facility] [address] [place] [address] VIR VERY LOW LIPOPROTEIN 14 mg/dL Normal 0-30 [facility] Comment on above: Performed By: #### L IPR #### [facility] [address] [place] [address] VIR MAGNESIUMon 01-27-2025 Magnesium [Mass/Vol] 1.9 mg/dL Normal 1.8-2.6 [facility] Comment on above: Performed By: #### M G #### [facility] [address] [place] [address] VIR MICROALBUMIN / CREATININE UR INE RATIOon 01-27-2025 MICROALBUMIN / CREATININE URINE RATIO MALBU MICROALBUMIN / CREATININE URINE RATIO Cancelled Normal [facility] PROSTATIC SPECIFIC ANTIGEN S CREENon 01-27-2025 PROSTATIC SPEC ANT 3.11 ng/mL Normal 0.00-4.00 [facility] Comment on above: Result Comment: The method used for this test is O'ol Blue DXI chemiluminescent immunoassay. Values obtained by different assay methods cannot be used interchangeably. Performed By: #### P SAS #### [facility] [address] [place] [address] VIR XR CHEST 2 VWSon 01-27-2025 XR CHEST 2 VWS XR CHEST 2 VWS STUDY: XR CHEST 2 VWS INDICATION: Recurrent productive cough. COMPARISON: None FINDINGS/IMPRESSION: * No acute cardiopulmonary process, by radiograph. * Prominent retrosternal clear space. Correlate with symptoms of COPD. Finalized by Samson Brown on 01/27/2025 3:13 PM Normal [facility] XR Chest PA and Lateralon STUDY: XR CHEST 2 VWS INDICATION: Recurrent productive cough. COMPARISON: None FINDINGS/IMPRESSION: * No acute cardiopulmonary process, by radiograph. * Prominent retrosternal clear space. Correlate with symptoms of COPD. Finalized by Samson Brown on 01/27/2025 3:13 PM Samson Chambers MD - 01/27/2025 STUDY: XR CHEST 2 VWS INDICATION: Recurrent productive cough. COMPARISON: None FINDINGS/IMPRESSION: * No acute cardiopulmonary process, by radiograph. * Prominent retrosternal clear space. Correlate with symptoms of COPD. Finalized by Samson Brown on 01/27/2025 3:13 PM [facility] Study observation (narrative) [facility] XR Chest PA and LateralOrder ed By: Samson Brown on 01-27-2025 [facility] Work Phone: Urology Office/Clinic Noteon 01-24-2025 Urology Office/Clinic Note Urology Office/Clinic Note Chief Complaint 1 year follow up HPI Staff pt is a 64 year old male here for a 1 year follow up with PSA Previous DX: BPH w/LUTS. MRI prostate done 10/03/23. PSA: 11/05/19 - 1.74 06/12/21 - 1.90 08/06/22 - 1.91 07/21/23 - 2.63 09/11/23 - 2.86 12/08/23 - 2.39 01/17/2025 - 3.1 17.1% 17.1 pt denies pain/burning denies visible blood denies flank pain IPSS: 2 History of Present Illness Tests reviewed: reviewed UA, PSA I have reviewed the previous health record information and history for this patient from Dr. Ortiz. I have reviewed and verified the staff HPI to be accurate for this encounter. Review of Systems PHQ Score Initial Depression Screen Score: 0 SCORE ROS - Provider Constitutional: denies weight loss, denies hot flashes. Eyes: denies eye problems. Gastrointestinal: denies nausea, denies vomiting. Cardiovascular: denies chest pain or angina. Integumentary: no dryness Musculoskeletal: denies musculoskeletal symptoms. ENMT: denies otolaryngeal symptoms. Respiratory: no shortness of breath. Heme/Lymph: denies easy bleeding tendency, denies easy bruising tendency. Psychiatric: no confusion, no anxiety. Genitourinary: See HPI. Physical Exam Vitals & Measurements HR: 70(Peripheral) RR: 16 BP: 130/68 HT: 70 in HT: 178 cm WT: 66.5 kg WT: 146.607 lb BMI: 20.99 General Appearance: alert, no distress, well nourished, well developed male. Assessment/Plan 1. Elevated PSA (R97.20: Elevated prostate specific antigen [PSA]) PSA: 11/05/19 - 1.74 06/12/21 - 1.90 08/06/22 - 1.91 07/21/23 - 2.63 09/11/23 - 2.86 (after Bactrim x2wks) 12/08/23 - 2.39 01/17/25 - 3.1 & 17.1% No family hx of prostate cancer. Prostate MRI 10/03/23 [facility] [place]. Prostate volume 31 mL. NEO 12/22/23: 30g, benign PSA has increased from prior. Likely secondary to subclinical prostatitis. Pt inquired about DM contributing to change in PSA. Educated pt it can make it difficult to fight infection. Recommended repeating PSA. If increases again, will need to proceed with TRUS/bx. Risks/benefits discussed. -F/u in 6 mos w/ PSA 2. BPH with urinary obstruction (N40.1: Benign prostatic hyperplasia with lower urinary tract symptoms) Tried Flomax but had SE of lip tingling. [1] UA neg. IPSS 2. No BPH meds. No bother with urination. Follow-up With When Contact Information ANGELIQUE LUNDBERG, Kim Mcgowan, URL [address] [place] [address] Additional Instructions: 6 mos w/ PSA Patient Education Prostate Cancer Screening IJoselin, personally scribed for Dr. Ortiz on 01/24/2025 13:52:06. . Documentation recorded by the rajeevibJoselin olmos, accurately reflects the services(s) I performed and decisions made by me. Authenticated by Dr. Ortiz on 01/24/2025 13:53:43. Problem List/Past Medical History Ongoing BPH with urinary obstruction Diabetes Elevated PSA Prostatitis Historical No qualifying data Procedure/Surgical History Cystoscopy (05/18/2009), Colonoscopy. Medications atorvastatin 10 mg Tab glucosamine, Oral Multi Vitamin+ NovoLOG FlexPen 100 units/mL injectable solution Tresiba FlexTouch 100 units/mL subcutaneous solution Allergies No Known Allergies Social History Tobacco Never (less than 100 in lifetime) Tobacco Use:. Never Smokeless Tobacco Use:. Household tobacco concerns: No. Yes, 01/24/2025 Family History Hypertension: Mother and Brother. Immunizations Vaccine Date Status influenza virus vaccine, inactivated 04/2023 Recorded SARS-CoV-2 (COVID-19) Ad26 vaccine 03/2021 Recorded SARS-CoV-2 (COVID-19) Ad26 vaccine 08/2020 Recorded Lab Results Ambulatory Point of Care Results Bilirubin Urine Dipstick: Negative (01/24/25 13:31:00) Blood Urine Dipstick: Negative (01/24/25 13:31:00) Glucose Urine Dipstick: Negative (01/24/25 13:31:00) Ketones Urine Dipstick: Negative (01/24/25 13:31:00) Leukocytes Urine Dipstick: Negative (01/24/25 13:31:00) Nitrite Urine Dipstick: Negative (01/24/25 13:31:00) Protein Urine Dipstick: Negative (01/24/25 13:31:00) Specific Jones Urine Dipstick: <=1.005 (01/24/25 13:31:00) Urine Appearance Urine Dipstick: Clear (01/24/25 13:31:00) Urine Color Urine Dipstick: Light yellow (01/24/25 13:31:00) Urobilinogen Urine Dipstick: Normal 0.2-1 EU/dl (01/24/25 13:31:00) pH Urine Dipstick: 6 (01/24/25 13:31:00) [1] URO- 3 mos PSA; Kim ORTIZ MD 12/22/2023 15:26 EDT Normal [facility] Comment on above: Result Comment: Elec tronically Signed By: Kim ORTIZ MD\.br\Date and Time Signed: 01/24/25 13:53 EDT\.br\Electronically Co-Signed By: Joselin Sesay\.br\Date and Time Co-Signed: 01/24/25 13:52 EDT PSA TOTAL+% FREEon 5 % FREE PSA 17.1 % . [facility] Comment on above: The table below list s the probability of prostate cancer for men with non-suspicious NEO results and total PSA between 4 and 10 ng/mL, by patient age (Martir et al, BRAYAN 1998, 279:1542). % Free PSA 50-64 yr 65-75 yr 0.00-10.00% 56% 55% 10.01-15.00% 24% 35% 15.01-20.00% 17% 23% 20.01-25.00% 10% 20% >25.00% 5% 9% Please note: Martir et al did not make specific recommendations regarding the use of percent free PSA for any other population of men. Performed at: [facility] [id number] Cashier General: Steve Ramirez PhD, Phone: [phone] Prostate specific Ag [Mass/Vol] 3.1 ng/mL 0.0 - 4.0 ng/mL [facility] [email or web address] Comment on above: Fer ECLIA methodol ogy. According to the [place] [employer], Serum PSA should decrease and remain at undetectable levels after radical prostatectomy. The AUA defines biochemical recurrence as an initial PSA value 0.2 ng/mL or greater followed by a subsequent confirmatory PSA value 0.2 ng/mL or greater. Values obtained with different assay methods or kits cannot be used interchangeably. Results cannot be interpreted as absolute evidence of the presence or absence of malignant disease. PSA, FREE 0.53 ng/mL N/A [facility] [facility] Comment on above: Fer ECLIA methodol ogy. [facility] [employer] POCT Hemoglobin A1con 2024 ADA Target < 8 Yes [facility] HbA1c (Bld) [Mass fraction] 6.8 % 4 - 7 % [facility] POCT Hemoglobin A1con 2024 ADA Target < 8 Yes [facility] HbA1c (Bld) [Mass fraction] 6.8 % 4 - 7 % [facility] CBC AND AUTO DIFFon 04-23-20 24 ABSOLUTE BASOPHIL 0.1 X10E9/L Normal 0.0-0.2 [facility] Comment on above: Performed By: #### 2 857-1, CBCA, HA1C, 77863-9, CMP, TSHR #### [facility] ([id number]) [address] [place] [address] ABSOLUTE NEUTROPHIL 4.4 X10E9/L Normal 1.5-6.6 [facility] Comment on above: Performed By: #### 2 857-1, CBCA, HA1C, 98210-8, CMP, TSHR #### [facility] ([id number]) [address] [place] [address] Basophils/100 WBC (Bld) 0.9 % Normal [facility] Comment on above: Performed By: #### 2 857-1, CBCA, HA1C, 09642-6, CMP, TSHR #### [facility] ([id number]) [address], [address] [address] Eosinophils (Bld) [#/Vol] 0.3 10*3/uL Normal 0.0-0.4 [facility] Comment on above: Performed By: #### 2 857-1, CBCA, HA1C, 92312-8, CMP, TSHR #### [facility] ([id number]) [address] [address] [place] [address] Eosinophils/100 WBC (Bld) 3.7 % Normal [facility] Comment on above: Performed By: #### 2 857-1, CBCA, HA1C, 20363-4, CMP, TSHR #### [facility] ([id number]) [address] [address] [place] [address] Erythrocyte distribution width (RBC) [Ratio] 13.3 % Normal 11.5-15.0 [facility] Comment on above: Performed By: #### 2 857-1, CBCA, HA1C, 10124-6, CMP, TSHR #### [facility] ([id number]) [address] [address] [place] [address] Hematocrit (Bld) [Volume fraction] 41.3 % Normal 39-49 [facility] Comment on above: Performed By: #### 2 857-1, CBCA, HA1C, 12322-7, CMP, TSHR #### [facility] ([id number]) [address] [place] [address] Hemoglobin (Bld) [Mass/Vol] 14.3 g/dL Normal 13.0-17.0 [facility] Comment on above: Performed By: #### 2 857-1, CBCA, HA1C, 01408-0, CMP, TSHR #### [facility] ([id number]) [address] [address] Lymphocytes (Bld) [#/Vol] 1.7 10*3/uL Normal 1.0-3.5 [facility] Comment on above: Performed By: #### 2 857-1, CBCA, HA1C, 15945-7, CMP, TSHR #### [facility] ([id number]) [address], [facility] [address] [place] [address] Lymphocytes/100 WBC (Bld) 24.3 % Normal [facility] Comment on above: Performed By: #### 2 857-1, CBCA, HA1C, 02073-2, CMP, TSHR #### [facility] ([id number]) [address] [place] [address] MCH (RBC) [Entitic mass] 32.0 pg Normal 27-34 [facility] Comment on above: Performed By: #### 2 857-1, CBCA, HA1C, 44679-3, CMP, TSHR #### [facility] ([id number]) [address], [address] [place] [address] MCHC (RBC) [Mass/Vol] 34.6 g/dL Normal 32-36 [facility] Comment on above: Performed By: #### 2 857-1, CBCA, HA1C, 70280-4, CMP, TSHR #### [facility] ([id number]) [address] [address] [place] [address] MCV (RBC) [Entitic vol] 93 fL Normal 80-100 [facility] Comment on above: Performed By: #### 2 857-1, CBCA, HA1C, 89833-7, CMP, TSHR #### [facility] ([id number]) [address], [address] [address] Monocytes (Bld) [#/Vol] 0.6 10*3/uL Normal 0-0.9 [facility] Comment on above: Performed By: #### 2 857-1, CBCA, HA1C, 55164-1, CMP, TSHR #### [facility] ([id number]) [address] [address] Monocytes/100 WBC (Bld) 8.9 % Normal [facility] Comment on above: Performed By: #### 2 857-1, CBCA, HA1C, 35028-7, CMP, TSHR #### [facility] ([id number]) [address] [address] Neutrophils/100 WBC (Bld) 62.2 % Normal [facility] Comment on above: Performed By: #### 2 857-1, CBCA, HA1C, 07555-6, CMP, TSHR #### [facility] ([id number]) [address], [facility] [address] [place] [address] Platelet mean volume (Bld) [Entitic vol] 9.0 fL Normal 7-12 [facility] Comment on above: Performed By: #### 2 857-1, CBCA, HA1C, 00519-3, CMP, TSHR #### [facility] ([id number]) [address] [address] Platelets (Bld) [#/Vol] 164 10*3/uL Normal 150-450 [facility] Comment on above: Performed By: #### 2 857-1, CBCA, HA1C, 01569-4, CMP, TSHR #### [facility] ([id number]) [address] [place] [address] RBC COUNT 4.46 X10E12/L Normal 4.10-5.70 [facility] Comment on above: Performed By: #### 2 857-1, CBCA, HA1C, 52836-7, CMP, TSHR #### [facility] ([id number]) [address] [place] [address] WBC (Bld) [#/Vol] 7.1 10*3/uL Normal 4.0-11.0 [facility] Comment on above: Performed By: #### 2 857-1, CBCA, HA1C, 83956-5, CMP, TSHR #### [facility] ([id number]) [address] [place] [address] COMPREHENSIVE METABOLIC PANE Shant 04-23-2024 Albumin [Mass/Vol] 4.3 g/dL Normal 3.2-5.3 [facility] Comment on above: Performed By: #### C BCA, CMP, 10057-7, , TSHR, 11150-7 #### [facility] ([id number]) [address] [place] [address] ALP [Catalytic activity/Vol] 101 U/L Normal 39-130 [facility] Comment on above: Performed By: #### C BCA, CMP, 61251-6, , TSHR, 73101-5 #### [facility] ([id number]) [address] [place] [address] ALT [Catalytic activity/Vol] 25 U/L Normal 0-40 [facility] Comment on above: Performed By: #### C BCA, CMP, 36484-6, 09119-4, TSHR, 70271-3 #### [facility] ([id number]) [address], [address] [place] [address] Anion gap [Moles/Vol] 3 mmol/L Low 5-15 [facility] Comment on above: Performed By: #### C BCA, CMP, 46222-8, 53486-4, TSHR, 41756-9 #### [facility] ([id number]) [address], [address] [place] [address] AST [Catalytic activity/Vol] 25 U/L Normal 0-41 [facility] Comment on above: Performed By: #### C BCA, CMP, 17013-1, 10427-4, TSHR, 88250-4 #### [facility] ([id number]) [address], [address] [place] [address] Bilirubin [Mass/Vol] 0.4 mg/dL Normal 0.3-1.2 [facility] Comment on above: Performed By: #### C BCA, CMP, 11299-6, , TSHR, 33545-7 #### [facility] ([id number]) [address], [address] [place] [address] Calcium [Mass/Vol] 9.6 mg/dL Normal 8.5-10.5 [facility] Comment on above: Performed By: #### C BCA, CMP, 78019-1, 76517-4, TSHR, 07968-5 #### [facility] ([id number]) [address], [address] [place] [address] Chloride [Moles/Vol] 101 mmol/L Normal 98-109 [facility] [facility] Comment on above: Performed By: #### C BCA, CMP, 41752-7, 74117-1, TSHR, 03113-4 #### [facility] ([id number]) [address], [address] [place] [address] CO2 [Moles/Vol] 34 mmol/L High 22-32 [facility] Comment on above: Performed By: #### C BCA, CMP, 01621-5, 12793-5, TSHR, 92791-6 #### [facility] ([id number]) [address], [address] [place] [address] Creatinine [Mass/Vol] 0.93 mg/dL Normal 0.60-1.30 [facility] Comment on above: Result Comment: METH OD TRACEABLE TO IDMS STANDARD Performed By: #### C BCA, CMP, 52845-1, , TSHR, 43817-8 #### [facility] ([id number]) [address], [facility] [address] [place] [address] eGFR (CKD-EPI) NON-RACE DEPENDENT >90 Normal >59 [facility] Comment on above: Result Comment: Reported eGFR is based on the CKD-EPI 2020 equation that does not use a race coefficient. Performed By: #### C BCA, CMP, 38176-3, , TSHR, 41691-4 #### [facility] ([id number]) [address] [address] [place] [address] Glucose [Mass/Vol] 276 mg/dL High 65-99 [facility] Comment on above: Performed By: #### C BCA, CMP, 79476-6, , TSHR, 32435-3 #### [facility] ([id number]) [address] [address] [place] [address] Potassium [Moles/Vol] 4.9 mmol/L Normal 3.5-5.0 [facility] Comment on above: Performed By: #### C BCA, CMP, 31857-0, 07413-0, TSHR, 58242-3 #### [facility] ([id number]) [address] [place] [address] Protein [Mass/Vol] 7.4 g/dL Normal 6.0-8.0 [facility] Comment on above: Performed By: #### C BCA, CMP, 69792-7, 34231-2, TSHR, 30561-5 #### [facility] ([id number]) [address], [address] [place] [address] Sodium [Moles/Vol] 138 mmol/L Normal 134-146 [facility] Comment on above: Performed By: #### C BCA, CMP, 76792-9, 26848-9, TSHR, 98270-4 #### [facility] ([id number]) [address], [address] [place] [address] Urea nitrogen [Mass/Vol] 18 mg/dL Normal 5-27 [facility] Comment on above: Performed By: #### C BCA, CMP, 28169-7, 25705-8, TSHR, 13727-6 #### [facility] ([id number]) [address], [address] [place] [address] EBV DNA ASHLYN+probe Qnon 04-23 Lipoprotein a [Moles/Vol] 23 nmol/L Normal <75 [facility] Comment on above: Result Comment: NOTE ADDITIONAL INFORMATION Please notice that Lp(a) values are reported in molar units (nmol/L). These units are recommended by professional society guidelines and expert opinion statements. Measured results and risk thresholds are higher than those generated using mass units (mg/dL). Cardiovascular risk increases starting at 75 nmol/L. Lp(a) >=125 nmol/L is considered a risk enhancing factor by the [place] [employer]. This test has been modified from the management professor's instructions. Its performance characteristics were determined by [facility] in a manner consistent with CLIA requirements. This test has not been cleared or approved by the U.S. Food and Drug Administration. Test Performed by: [address] [address] Cashier General: Hipolito Montano Ph.D.; CLIA# [id number] Performed By: #### C BCA, CMP, 38960-4, , TSHR, 99918-0 #### [facility] ([id number]) [address], [address] [place] [address] HGB A1C (GLYCO-HGB)on 2023 Glucose [Mass/Vol] 143 mg/dL Normal [facility] Comment on above: Performed By: #### C BCA, CMP, , , TSHR, 91689-1 #### [facility] ([id number]) [address], [address] [place] [address] HbA1c (Bld) [Mass fraction] 6.6 % High 4.4-5.6 [facility] Comment on above: Result Comment: NOTE ADA Guidelines Result HgbA1c Normal : less than 5.7 % Prediabetes : 5.7 % to 6.4 % Diabetes : > 6.4 % Use with caution in patients with abnormal hemoglobin variants as the half-life of red blood cells and in vivo glycation rates are affected. Performed By: #### C BCA, CMP, , , TSHR, 81380-7 #### [facility] ([id number]) [address], [address] [place] [address] Lipid 1996 panelon 4 Cholesterol [Mass/Vol] 140 mg/dL Low 150-200 [facility] Comment on above: Performed By: #### C BCA, CMP, 54142-1, , TSHR, 08889-3 #### [facility] ([id number]) [address], [address] [place] [address] Cholesterol in HDL [Mass/Vol] 67 mg/dL Normal >39 [facility] Comment on above: Result Comment: HDL <40 mg/dL - High Risk HDL > or = 40mg/dL- Desirable HDL >60 mg/dL - Negative Risk Performed By: #### C BCA, CMP, 09560-7, 66134-3, TSHR, 12851-6 #### [facility] ([id number]) [address], [address] [place] [address] Cholesterol in LDL [Mass/Vol] 65 mg/dL Normal <130 [facility] Comment on above: Result Comment: LDL <100 mg/dL - Desirable LDL >160 mg/dL - High Risk Performed By: #### C BCA, CMP, 08111-4, 27380-6, TSHR, 85692-0 #### [facility] ([id number]) [address] [place] [address] Cholesterol in VLDL [Mass/Vol] 8 mg/dL Normal 0-30 [facility] Comment on above: Performed By: #### C BCA, CMP, 34016-2, 93281-5, TSHR, 09127-4 #### [facility] ([id number]) [address], [address] [place] [address] CHOLESTEROL:HDL 2.1 Normal 1.0-5.0 [facility] Comment on above: Performed By: #### C BCA, CMP, 33527-3, 56612-9, TSHR, 98367-4 #### [facility] ([id number]) [address], [address] [place] [address] Triglyceride [Mass/Vol] 38 mg/dL Normal 27-150 [facility] Comment on above: Performed By: #### C BCA, CMP, 71343-7, , TSHR, 73961-4 #### [facility] ([id number]) [address], [address] [address] MICROALBUMIN - ALBUMIN:CREAT ININE URINE RATIOon 04-23-2024 ALB/CREAT RATIO NOT CALCULATED Normal 0.0-30.0 [facility] Comment on above: Result Comment: Result for Albumin/Creatinine Ratio cannot be reliably calculated because urine albumin and or urine creatinine is below the detection limit of the assay. Performed By: #### C BCA, CMP, 24562-3, , TSHR, 53617-9 #### [facility] ([id number]) [address], [address] [place] [address] Albumin DL <= 20 mg/L (U) [Mass/Vol] mg/dL Normal 0.0-1.9 [facility] Comment on above: Performed By: #### C BCA, CMP, 60540-6, , TSHR, 91561-2 #### [facility] ([id number]) [address], [address] [address] URINE CREAT 50.83 mg/dL Normal [facility] Comment on above: Performed By: #### C BCA, CMP, 62018-0, , TSHR, 92454-2 #### [facility] ([id number]) [address], [address] [place] [address] POCT Glucose Fingerstickon 1 06-23-2023 Glucose [Mass/Vol] 299 mg/dL Abnormal 65 - 99 mg/dL [facility] Interpretation and review of laboratory results Abnormal [facility] Prostate specific Ag [Mass/V ol]on 04-23-2024 PROSTATIC SPEC ANT 2.89 ng/mL Normal 0.00-4.00 [facility] Comment on above: Result Comment: The method used for this test is Shelbi Danica DXI chemiluminescent immunoassay. Values obtained by different assay methods cannot be used interchangeably. Performed By: #### 2 857-1, CBCA, HA1C, 31147-6, CMP, TSHR #### [facility] ([id number]) [address], [address] [place] [address] TSH WITH REFLEXon 04-23-2024 TSH 1.27 uIU/mL Normal 0.49-4.67 [facility] Comment on above: Performed By: #### C BCA, CMP, 95251-6, 24776-2, TSHR, 71265-1 #### [facility] ([id number]) [address], [address] [place] [address] POCT Hemoglobin A1con 2023 ADA Target < 8 Yes [facility] HbA1c (Bld) [Mass fraction] 7.2 g/dL Abnormal 4 - 7 g/dL [facility] Interpretation and review of laboratory results Abnormal [facility] CT HEAD WO CONTRASTon 2023 CT HEAD WO CONTRAST EXAMINATION: CT OF [...] by: Dane Zuñiga MD 12/17/23 Final result Normal [facility] CT Head WO contraston [address] of the brain. [facility] EXAMINATION: CT OF THE HEAD WITHOUT CONTRAST [...] lytic or blastic osseous lesions are identified. [facility] Dane Zuñiga MD - 12/17/2023 EXAMINATION: CT [...] identified. IMPRESSION: Normal CT of the brain. [facility] CT Head WO contrastOrdered B y: Dane Zuñiga on 12-17-2023 [employer] Work Phone: CT Head WO contraston 2023 Radiology Study observation (narrative) [employer] [facility] POCT Hemoglobin A1con 2023 ADA Target < 8 Yes [facility] HbA1c (Bld) [Mass fraction] 7.9 g/dL Abnormal 4 - 7 g/dL [facility] Interpretation and review of laboratory results Abnormal [facility] prostate wo/w conon 10-06 MR prostate wo/w con [facility] [employer] [address] [place] [address] MRI Report Signed Patient: Sd Cardozo MR#: [id number] 68 : 1960 Acct:[id number] Age/Sex: 63 / M ADM Date: 10/03/23 Loc: MR Room: Type: [employer] Attending Dr: Kim Ortiz MD Copies to: [...] etiology. Impression dictated by: Tc Jurado Jr., D.O.10/07/2023 9:12 AM Dictation Location: [place] [address] Transcribed By: [facility] 10/07/23911 Dictated By: Tc Jurado Jr, DO 10/07/23908 Signed By: 10/07/23911 Normal [facility] Creatinine (Bld) [Mass/Vol]O rdered By: Kim Ortiz on 10-03-2023 Creatinine [Mass/Vol] 0.9 mg/dL 0.6-1.3 [facility] Comment on above: ER/ESD physician is notified/shown all ISTAT results.Critical values may be confirmed by laboratory testing ifdeemed necessary by ER attending doctor. ISTAT XRay CREon 10-03-2023 Creatinine [Mass/Vol] 0.9 mg/dL Normal 0.6-1.3 [facility] Comment on above: Result Comment: ER/E SD physician is notified/shown all ISTAT results. Critical values may be confirmed by laboratory testing if deemed necessary by ER attending doctor. Performed By: #### I SCRE #### [facility] [address] [place] [address] ISTAT GFR > 60.0 Normal [facility] Comment on above: Result Comment: PERF ORMED BY: [place] [address] PATHOLOGIST AERODYNAMIC CONSULTANT JADA SHAHID M.D. Performed By: #### I SCRE #### [facility] [address] [address] No Panel InformationOrdered By: Kim Ortiz on 10-03-2023 Bedside Estimated GFR (eGFR) > 60.0 [facility] POCT Hemoglobin A1con 2023 HbA1c (Bld) [Mass fraction] 6.8 g/dL 4 - 7 g/dL [facility] CBC AND AUTO DIFFon 12-22-20 23 ABSOLUTE BASOPHIL 0.1 X10E9/L Normal 0.0-0.2 [facility] Comment on above: Performed By: #### C BCA, CMP, , , TSHR, 90907-2 #### [facility] ([id number]) [address], [address] [place] [address] ABSOLUTE NEUTROPHIL 4.2 X10E9/L Normal 1.5-6.6 [facility] Comment on above: Performed By: #### C BCA, CMP, , , TSHR, 48917-5 #### [facility] ([id number]) [address], [address] [place] [address] Basophils/100 WBC (Bld) 1.1 % Normal [facility] Comment on above: Performed By: #### C BCA, CMP, , , TSHR, 07353-0 #### [facility] ([id number]) [address], [address] [place] [address] Eosinophils (Bld) [#/Vol] 0.2 10*3/uL Normal 0.0-0.4 [facility] Comment on above: Performed By: #### C BCA, CMP, , , TSHR, 07746-9 #### [facility] ([id number]) [address], [address] [place] [address] Eosinophils/100 WBC (Bld) 3.0 % Normal [facility] Comment on above: Performed By: #### C BCA, CMP, , , TSHR, 75626-7 #### [facility] ([id number]) [address], [address] [place] [address] Erythrocyte distribution width (RBC) [Ratio] 12.9 % Normal 11.5-15.0 [facility] Comment on above: Performed By: #### C BCA, CMP, , , TSHR, 18795-9 #### [facility] ([id number]) [address] [address] [place] [address] Hematocrit (Bld) [Volume fraction] 41.5 % Normal 39-49 [facility] Comment on above: Performed By: #### C BCA, CMP, 17320-9, , TSHR, 93028-5 #### [facility] ([id number]) [address] [address] Hemoglobin (Bld) [Mass/Vol] 14.2 g/dL Normal 13.0-17.0 [facility] Comment on above: Performed By: #### C BCA, CMP, , , TSHR, 09199-2 #### [facility] ([id number]) [address] [address] Lymphocytes (Bld) [#/Vol] 1.9 10*3/uL Normal 1.0-3.5 [facility] Comment on above: Performed By: #### C BCA, CMP, , , TSHR, 47299-9 #### [facility] ([id number]) [address] [address] Lymphocytes/100 WBC (Bld) 26.8 % Normal [facility] Comment on above: Performed By: #### C BCA, CMP, 66836-9, , TSHR, 25907-7 #### [facility] ([id number]) [address] [address] MCH (RBC) [Entitic mass] 31.0 pg Normal 27-34 [facility] Comment on above: Performed By: #### C BCA, CMP, 62708-1, , TSHR, 14436-2 #### [facility] ([id number]) [address] [place] [address] MCHC (RBC) [Mass/Vol] 34.2 g/dL Normal 32-36 [facility] Comment on above: Performed By: #### C BCA, CMP, 64054-5, , TSHR, 37623-3 #### [facility] ([id number]) [address], [address] [place] [address] MCV (RBC) [Entitic vol] 91 fL Normal 80-100 [facility] Comment on above: Performed By: #### C BCA, CMP, , , TSHR, 76056-0 #### [facility] ([id number]) [address], [address] [place] [address] Monocytes (Bld) [#/Vol] 0.6 10*3/uL Normal 0-0.9 [facility] Comment on above: Performed By: #### C BCA, CMP, , , TSHR, 60021-7 #### [facility] ([id number]) [address], [address] [place] [address] Monocytes/100 WBC (Bld) 9.2 % Normal [facility] Comment on above: Performed By: #### C BCA, CMP, 61939-2, , TSHR, 18027-8 #### [facility] ([id number]) [address], [address] [place] [address] Neutrophils/100 WBC (Bld) 59.9 % Normal [facility] Comment on above: Performed By: #### C BCA, CMP, 21903-6, , TSHR, 09886-8 #### [facility] ([id number]) [address], [address] [place] [address] Platelet mean volume (Bld) [Entitic vol] 8.7 fL Normal 7-12 [facility] Comment on above: Performed By: #### C BCA, CMP, 21034-1, , TSHR, 06466-1 #### [facility] ([id number]) [address], [address] [place] [address] Platelets (Bld) [#/Vol] 194 10*3/uL Normal 150-450 [facility] Comment on above: Performed By: #### C BCA, CMP, 49944-9, , TSHR, 41938-7 #### [facility] ([id number]) [address], [address] [place] [address] RBC COUNT 4.58 X10E12/L Normal 4.10-5.70 [facility] Comment on above: Performed By: #### C BCA, CMP, 97893-8, , TSHR, 66552-9 #### [facility] ([id number]) [address], [address] [place] [address] WBC (Bld) [#/Vol] 6.9 10*3/uL Normal 4.0-11.0 [facility] Comment on above: Performed By: #### C BCA, CMP, 40704-5, , TSHR, 30564-5 #### [facility] ([id number]) [address], [address] [place] [address] COMPREHENSIVE METABOLIC PANE Shant 06-06-2023 Albumin [Mass/Vol] 4.5 g/dL Normal 3.2-5.3 [facility] Comment on above: Performed By: #### C BCA, CMP, 96327-6, , TSHR, 74846-9 #### [facility] ([id number]) [address], [address] [place] [address] ALP [Catalytic activity/Vol] 84 U/L Normal 39-130 [facility] Comment on above: Performed By: #### C BCA, CMP, 29917-3, 42978-4, TSHR, 31521-4 #### [facility] ([id number]) [address], [address] [place] [address] ALT [Catalytic activity/Vol] 27 U/L Normal 0-40 [facility] Comment on above: Performed By: #### C BCA, CMP, 40278-4, 98930-1, TSHR, 86794-0 #### [facility] ([id number]) [address], [address] [place] [address] Anion gap [Moles/Vol] 8 mmol/L Normal 5-15 [facility] Comment on above: Performed By: #### C BCA, CMP, 29914-6, 41680-4, TSHR, 07802-4 #### [facility] ([id number]) [address], [address] [place] [address] AST [Catalytic activity/Vol] 26 U/L Normal 0-41 [facility] Comment on above: Performed By: #### C BCA, CMP, 48862-1, 41187-2, TSHR, 70236-6 #### [facility] ([id number]) [address], [address] [place] [address] Bilirubin [Mass/Vol] 0.5 mg/dL Normal 0.3-1.2 [facility] Comment on above: Performed By: #### C BCA, CMP, 26491-4, 66553-9, TSHR, 99860-1 #### [facility] ([id number]) [address], [address] [place] [address] Calcium [Mass/Vol] 9.5 mg/dL Normal 8.5-10.5 [facility] Comment on above: Performed By: #### C BCA, CMP, 11416-7, 94462-6, TSHR, 33785-1 #### [facility] ([id number]) [address], [address] [place] [address] Chloride [Moles/Vol] 101 mmol/L Normal 98-109 [facility] Comment on above: Performed By: #### C BCA, CMP, 39105-4, 77504-7, TSHR, 41134-1 #### [facility] ([id number]) [address], [facility] [address] [place] [address] CO2 [Moles/Vol] 31 mmol/L Normal 22-32 [facility] Comment on above: Performed By: #### C BCA, CMP, 99981-1, 05635-8, TSHR, 45492-6 #### [facility] ([id number]) [address], [facility] [address] [place] [address] Creatinine [Mass/Vol] 0.96 mg/dL Normal 0.60-1.30 [facility] Comment on above: Result Comment: METH OD TRACEABLE TO IDMS STANDARD Performed By: #### C BCA, CMP, 58744-2, , TSHR, 53864-7 #### [facility] ([id number]) [address], [address] [address] GFR/1.73 sq M.predicted among non-blacks MDRD (S/P/Bld) [Vol rate/Area] 90 mL/min/{1.73_m2} Normal >59 [facility] Comment on above: Result Comment: Reported eGFR is based on the CKD-EPI 2020 equation that does not use a race coefficient. Performed By: #### C BCA, CMP, 59953-7, 24254-5, TSHR, 94261-4 #### [facility] ([id number]) [address], [address] [address] Glucose [Mass/Vol] 198 mg/dL High 65-99 [facility] Comment on above: Performed By: #### C BCA, CMP, 47102-3, 80356-3, TSHR, 17445-9 #### [facility] ([id number]) [address], [address] [place] [address] Potassium [Moles/Vol] 4.8 mmol/L Normal 3.5-5.0 [facility] Comment on above: Performed By: #### C BCA, CMP, 67039-4, 60881-0, TSHR, 04976-4 #### [facility] ([id number]) [address] [place] [address] Protein [Mass/Vol] 7.3 g/dL Normal 6.0-8.0 [facility] Comment on above: Performed By: #### C BCA, CMP, 73878-0, , TSHR, 71427-0 #### [facility] ([id number]) [address] [place] [address] Sodium [Moles/Vol] 140 mmol/L Normal 134-146 [facility] Comment on above: Performed By: #### C BCA, CMP, 74612-5, , TSHR, 49950-3 #### [facility] ([id number]) [address], [address] [place] [address] Urea nitrogen [Mass/Vol] 17 mg/dL Normal 5-27 [facility] Comment on above: Performed By: #### C BCA, CMP, 14776-9, , TSHR, 38912-4 #### [facility] ([id number]) [address] [place] [address] FERRITINon 06-06-2023 Ferritin [Mass/Vol] 109 ng/mL Normal 24-336 [facility] Comment on above: Performed By: #### 2 276-4 #### [facility] ([id number]) [address], [address] [place] [address] Lipid 1996 panelon Cholesterol [Mass/Vol] 176 mg/dL Normal 150-200 Pr [facility] Comment on above: Performed By: #### C BCA, CMP, 44510-9, 91022-2, TSHR, 35133-4 #### [facility] ([id number]) [address] [place] [address] Cholesterol in HDL [Mass/Vol] 74 mg/dL Normal >39 [facility] Comment on above: Result Comment: HDL <40 mg/dL - High Risk HDL > or = 40mg/dL- Desirable HDL >60 mg/dL - Negative Risk Performed By: #### C BCA, CMP, 81334-8, , TSHR, 18632-6 #### [facility] ([id number]) [address] [place] [address] Cholesterol in LDL [Mass/Vol] 87 mg/dL Normal <130 [facility] Comment on above: Result Comment: LDL <100 mg/dL - Desirable LDL >160 mg/dL - High Risk Performed By: #### C BCA, CMP, 37331-4, , TSHR, 13554-2 #### [facility] ([id number]) [address] [place] [address] Cholesterol in VLDL [Mass/Vol] 15 mg/dL Normal 0-30 [facility] Comment on above: Performed By: #### C BCA, CMP, 91063-2, 55862-8, TSHR, 73756-8 #### [facility] ([id number]) [address] [place] [address] CHOLESTEROL:HDL 2.4 Normal 1.0-5.0 [facility] Comment on above: Performed By: #### C BCA, CMP, 15864-7, 42952-8, TSHR, 01918-2 #### [facility] ([id number]) [address] [place] [address] Triglyceride [Mass/Vol] 77 mg/dL Normal 27-150 [facility] Comment on above: Performed By: #### C BCA, CMP, 84707-7, , TSHR, 34620-4 #### [facility] ([id number]) [address] [place] [address] MAGNESIUMon 06-06-2023 Magnesium [Mass/Vol] 2.0 mg/dL Normal 1.8-2.6 [facility] Comment on above: Performed By: #### C BCA, CMP, 29729-4, , TSHR, 25382-6 #### [facility] ([id number]) [address] [place] [address] MICROALBUMIN - ALBUMIN:CREAT ININE URINE RATIOon 06-06-2023 ALB/CREAT RATIO 10.2 mg/g creat Normal 0.0-30.0 [facility] Comment on above: Performed By: #### M ALBU #### [facility] ([id number]) [address] [place] [address] Albumin DL <= 20 mg/L (U) [Mass/Vol] 0.7 mg/dL Normal 0.0-1.9 [facility] Comment on above: Performed By: #### M ALBU #### [facility] ([id number]) [address] [place] [address] URINE CREAT 68.64 mg/dL Normal [facility] Comment on above: Performed By: #### M ALBU #### [facility] ([id number]) [address] [place] [address] POCT Hemoglobin [id number] B y: Jyoti Valare on 06-06-2023 ADA Target < 8 Yes [facility] HbA1c (Bld) [Mass fraction] 7.2 g/dL Abnormal 4 - 7 g/dL [facility] Interpretation and review of laboratory results Abnormal [facility] TSH WITH REFLEXon 06-06-2023 TSH 1.16 uIU/mL Normal 0.49-4.67 [facility] Comment on above: Performed By: #### C DANIELLE LOZANO, 86386-5, , TSHR, 96819-6 #### [facility] ([id number]) [address] [place] [address] Vitamin D+Metabolites [Mass/ Vol]on 06-06-2023 VITAMIN D 25 HYD TOT 31.9 ng/mL Normal 30-100 [facility] Comment on above: Result Comment: Vitamin D status 25 [place] Vitamin D Deficiency <20 ng/mL Insufficiency 20-29 ng/mL Sufficiency 30-100 ng/mL Toxicity >100 ng/mL NOTE: A pediatric reference range has not been established by the management professor of this kit. The [place] [employer] recommends a Vitamin D level of = or >20ng/mL in infants and children. Performed By: #### C DANIELLE LOZANO, 56426-7, 98502-7, TSHR, 78960-8 #### [facility] ([id number]) [address] [place] [address] POC Glucose Fingerstickon Glucose [Mass/Vol] 145 mg/dL High 75 - 110 mg/dL [facility] Interpretation and review of laboratory results Abnormal [facility] Microalb.,Random Uron 2021 Creatinine [Mass/Vol] 59.2 mg/dL Normal 39.0-259.0 [facility] Comment on above: Performed By: #### U RNMAB #### [employer] [address] [place], [place] [id number] Cashier General: Gregory Brizuela MD Microalb/Creat Ratio Can not be calculated Normal <17 [facility] Comment on above: Performed By: #### U RNMAB #### [facility] [address] [place] [address] Cashier General: Gregory Brizuela MD Microalbumin conc. <12 Normal <21 [facility] Comment on above: Performed By: #### U RNMAB #### [facility] [address] [place], [place] [id number] Cashier General: Gregory Brizuela MD Microalbumin, Uron 2 Albumin/Creatinine DL <= 20 mg/L (24H U) [Mass ratio] <12 <21 mg/L [facility] Albumin/Creatinine DL <= 20 mg/L (U) [Ratio] Can not be calculated <17 mcg/mg creat [facility] Creatinine [Mass/Vol] 59.2 mg/dL 39.0 - 259.0 mg/dL [facility] WRIST LEFT 3 Son [address] [facility] Department of Radiology [address] [place] [id number] Patient Name: SD CARDOZO : 1960 [...] view. Electronically signed: Oscar Chao. Transcribed by: [email or web address], User Resident: Electronically Signed by: OSCAR CHAO @ 09/07/2020 04:[address] [facility] Comment on above: Order Comment: Evalu ate WRIST LEFT 3 Son WRIST LEFT [address] [facility] Department of Radiology [address] [place] [id number] Patient Name: SD CARDOZO : 1960 Sex: M Age: Race: White Pt. Location: Patient Status: O Ordered Date: 08/10/2020 1:45:00 PM Completed Date: 08/10/2020 01:47 PM Requesting Provider: NIKKY CAMARENA Attending Provider: NIKKY CAMARENA Report Copy To: Signs & Symptoms: S62.002A Unsp fracture of navicular bone of left wrist, init I10 History: [place] Comments: Exam: WRIST LEFT 3 VWS WRIST LEFT 3 VWS CLINICAL INFORMATION: Pt stated he injured and fracture his left wrist x 2 weeks ago. VIEWS: AP,Lateral and Oblique views were obtained. COMPARISON: None. IMPRESSION: 1. Cortical irregularity of the dorsal aspect of the distal radius consistent with fracture with soft tissue swelling noted. No carpal alignment abnormalities. Subchondral cysts are noted. Electronically signed: Liana Lamar. Transcribed by: [email or web address], User Resident: Electronically Signed by: LIANA LAMAR @ 08/10/2020 04:[address] [facility] COMPREHENSIVE METABOLIC PANE L WITH GFRon 04-29-2020 Albumin [Mass/Vol] 4.4 g/dL Normal 3.2-5.3 [facility] Comment on above: Result Comment: Test performed at [facility] [place] [address] CLIA Number [id number] ------ [facility] [address] [place] [address] CLIA No. [id number] Accreditation No. [id number] Nursing Program Manager: Dane Torres M.D. Performed By: #### 2 59, 460, 538 #### [facility] Unless Otherwise Noted [address] [place] [address] / COLA #4724/CLIA # [id number] ALK PHOS 69 U/L Normal 39-130 [facility] Comment on above: Performed By: #### 2 , , 905 #### [facility] Unless Otherwise Noted [address] [address] / COLA #4724/CLIA # [id number] ALT [Catalytic activity/Vol] 23 U/L Normal 0-40 [facility] Comment on above: Performed By: #### 2 , , 906 #### [facility] Unless Otherwise Noted [address] [address] / COLA #4724/CLIA # [id number] Anion gap [Moles/Vol] 7 mmol/L Normal 5-15 [facility] Comment on above: Performed By: #### 2 , , 904 #### [facility] Unless Otherwise Noted [address] [address] / COLA #4724/CLIA # [id number] AST-SGOT 21 U/L Normal 0-41 [facility] Comment on above: Performed By: #### 2 , , 905 #### [facility] Unless Otherwise Noted [address] [address] / COLA #4724/CLIA # [id number] Bilirubin.direct [Mass/Vol] 0.4 mg/dL Normal 0.3-1.2 [facility] Comment on above: Performed By: #### 2 , , 905 #### [facility] Unless Otherwise Noted [address] [address] [place] [address] / COLA #4724/CLIA # [id number] Calcium [Mass/Vol] 9.3 mg/dL Normal 8.5-10.5 [facility] Comment on above: Performed By: #### 2 , , 906 #### [facility] Unless Otherwise Noted [address] [address] / COLA #4724/CLIA # [id number] Chloride [Moles/Vol] 102 mmol/L Normal 98-109 [facility] Comment on above: Performed By: #### 2 , , 902 #### [facility] Unless Otherwise Noted [address] [address] / COLA #4724/CLIA # [id number] CO2 [Moles/Vol] 31 mmol/L Normal 22-32 [facility] Comment on above: Performed By: #### 2 , , 900 #### [facility] Unless Otherwise Noted [address] [address] / COLA #4724/CLIA # [id number] Creatinine [Mass/Vol] 0.99 mg/dL Normal 0.60-1.30 End [facility] Comment on above: Result Comment: METH OD TRACEABLE TO IDMS STANDARD Performed By: #### 2 , , 909 #### [facility] Unless Otherwise Noted [address] [address] / COLA #4724/CLIA # [id number] GFR/1.73 sq M predicted among blacks MDRD (S/P/Bld) [Vol rate/Area] mL/min/{1.73_m2} Normal >59 [facility] Comment on above: Performed By: #### 2 , 5 #### [facility] Unless Otherwise Noted [address] [address] / COLA #4724/CLIA # [id number] GFR/1.73 sq M predicted among non-blacks MDRD (S/P/Bld) [Vol rate/Area] mL/min/{1.73_m2} Normal >59 [facility] Comment on above: Performed By: #### 2 , #### [facility] Unless Otherwise Noted [address] [address] / COLA #4724/CLIA # [id number] Glucose [Mass/Vol] 111 mg/dL High 65-99 [facility] Comment on above: Performed By: #### 2 , 8 #### [facility] Unless Otherwise Noted [address] [address] / COLA #4724/CLIA # [id number] Potassium [Moles/Vol] 4.2 mmol/L Normal 3.5-5.0 [facility] Comment on above: Performed By: #### 2 , 3 #### [facility] Unless Otherwise Noted [address] [address] / COLA #4724/CLIA # [id number] Protein [Mass/Vol] 6.7 g/dL Normal 6.0-8.0 [facility] Comment on above: Performed By: #### 2 , 4 #### [facility] Unless Otherwise Noted [address] [facility] [address] [place] [address] / COLA #4724/CLIA # [id number] Sodium [Moles/Vol] 140 mmol/L Normal 134-146 [facility] Comment on above: Performed By: #### 2 , , 901 #### [facility] Unless Otherwise Noted [address] [address] / COLA #4724/CLIA # [id number] Urea nitrogen [Mass/Vol] 15 mg/dL Normal 5-23 [facility] Comment on above: Performed By: #### 2 , , 900 #### [facility] Unless Otherwise Noted [address] [address] / COLA #4724/CLIA # [id number] LIPID PANEL WITH REFLEX TO D IRECT LDLon 04-29-2020 Cholesterol [Mass/Vol] 153 mg/dL Normal 150-200 [facility] Comment on above: Performed By: #### 2 , , 904 #### [facility] Unless Otherwise Noted [address] [address] / COLA #4724/CLIA # [id number] Cholesterol in LDL/Cholesterol in HDL [Mass ratio] 1.2 Normal <3.5 [facility] Comment on above: Performed By: #### 2 , , 900 #### [facility] Unless Otherwise Noted [address] [address] / COLA #4724/CLIA # [id number] Cholesterol.total/Chol esterol in HDL [Mass ratio] 2.4 {ratio} Normal 1.0-5.0 [facility] Comment on above: Result Comment: Test performed at [facility] [address] [place] [address] CLIA Number [id number] ------ Performed By: #### 2 , 536, 164 #### [facility] Unless Otherwise Noted [address] [address] / COLA #4424/CLIA # [id number] HDL-CHOL 65 mg/dL Normal >39 [facility] Comment on above: Result Comment: HDL <40 mg/dL - High Risk HDL > or = 40mg/dL- Desirable HDL >60 mg/dL - Negative Risk Performed By: #### 2 , 045, 584 #### [facility] Unless Otherwise Noted [address] [address] / COLA #0924/CLIA # [id number] LDL-CHOL, CALCULATED 76 mg/dL Normal <130 [facility] Comment on above: Result Comment: LDL <100 mg/dL - Desirable LDL >160 mg/dL - High Risk Performed By: #### 2 , , 454 #### [facility] Unless Otherwise Noted [address] [address] / COLA #4724/CLIA # [id number] Triglyceride [Mass/Vol] 58 mg/dL Normal 27-150 [facility] Comment on above: Performed By: #### 2 , , 905 #### [facility] Unless Otherwise Noted [address] [facility] [address] [place] [address] / COLA #4724/CLIA # [id number] VLDL-CHOL, CALCULATED 12 mg/dL Normal 0-30 [facility] Comment on above: Performed By: #### 2 , , 907 #### [facility] Unless Otherwise Noted [address] [address] / COLA #4724/CLIA # [id number] MICROALBUMIN, RANDOM SPECon 04-29-2020 Creatinine [Mass/Vol] 38.65 mg/dL Normal En [facility] Comment on above: Performed By: #### 2 , , 902 #### [facility] Unless Otherwise Noted [address] [facility] [address] [place] [address] / COLA #4724/CLIA # [id number] Creatinine [Mass/Vol] SEE NOTE Normal 0.0-30.0 [facility] Comment on above: Result Comment: NOT CALCULATED Result for Albumin/Creatinine Ratio cannot be reliably calculated because urine albumin and or urine creatinine is below the detection limit of the assay. Performed at [facility] [address] [address] Performed By: #### 2 , 902 #### [facility] Unless Otherwise Noted [address] [address] / COLA #4724/CLIA # [id number] MICROALBUMIN <0.7 Normal 0.0-1.9 [facility] Comment on above: Performed By: #### 2 04, 209, 392 #### [facility] Unless Otherwise Noted [address] [facility] [address] [place] [address] / COLA #4724/CLIA # [id number] Fecal lactoferrinon 10-15-19 20 Lactoferrin, Qual Negative NEGATIVE f or fecal lactoferrin. [place] Rotavirus Antigen, Stoolon 0 10-15-2019 Direct Exam Negative [place] Special Requests NOT REPORTED [place] Specimen Description .FECES [place] SPECIMEN REJECTIONon 020 Ordered Test OBN [place] Reason for Rejection Unable to perform testing: Specimen age beyond stability limit. [place] Specimen source Nom (Unsp spec) .STOOL [place] - NOT REPORTED [place] C-Reactive Proteinon 020 CRP [Mass/Vol] mg/L 0 - 5 mg/L [place], [place] CBC Auto Differentialon 08-15 Basophils (Bld) [#/Vol] 0.00 10*3/uL [place] Basophils/100 WBC (Bld) 1 % 0 - 2 % [place] Differential Type NOT REPORTED [place] Eosinophils (Bld) [#/Vol] 0.30 10*3/uL [place] Eosinophils/100 WBC (Bld) 4 % 0 - 4 % [place] Erythrocyte distribution width (RBC) [Ratio] 13.4 % 11.5 - 14.9 % [place] Hematocrit (Bld) [Volume fraction] 44.1 % 41 - 53 % [place] Hemoglobin (Bld) [Mass/Vol] 14.6 g/dL 13.5 - 17.5 g/dL [place] Interpretation and review of laboratory results Abnormal [place] Lymphocytes (Bld) [#/Vol] 1.80 10*3/uL [place] Lymphocytes/100 WBC (Bld) 28 % 24 - 44 % [place] MCH (RBC) [Entitic mass] 30.1 pg 26 - 34 pg [place] MCHC (RBC) [Mass/Vol] 33.1 g/dL 31 - 37 g/dL [place] MCV (RBC) [Entitic vol] 90.8 fL 80 - 100 fL [place] Monocytes (Bld) [#/Vol] 0.60 10*3/uL [place] Monocytes/100 WBC (Bld) 10 % High 1 - 7 % [place] Platelet mean volume (Bld) [Entitic vol] 7.8 fL 6 - 12 fL [place] Platelets (Bld) [#/Vol] 220 10*3/uL [place] Platelets (Bld) [#/Vol] NOT REPORTED [place] RBC (Bld) [#/Vol] 4.85 10*6/uL 4.5 - 5.9 m/uL [place] RBC morphology finding Nom (Bld) NOT REPORTED [place] Segmented neutrophils/100 WBC (Bld) 57 % 36 - 66 % [place] Segs Absolute 3.80 [place] WBC (Bld) [#/Vol] NOT REPORTED per 100 WBC [place] WBC (Bld) [#/Vol] 6.5 10*3/uL [place] WBC Morphology NOT REPORTED [place] CT ABDOMEN PELVIS W IV CONTR AST Additional Contrast? Noneon 09-11-2019 Reinaldo, Mhpn Incoming Radiant Results From [employer]/PAIEON - 09/11/2019 10:39 AM EDT EXAMINATION: CT [...] patient pain. Additional unchanged findings, as above. [place] No acute CT finding in the abdomen or pelvis. No obstructive uropathy. No CT evidence of appendicitis. Persistent moderate constipation, mostly ascending and transverse colon. Correlate with patient pain. Additional unchanged findings, as above. [place] EXAMINATION: CT OF THE ABDOMEN AND [...] degenerative changes T10-T12 with slight wedging T11. [place] Comprehensive Metabolic Pane shant 09-11-2019 Albumin [Mass/Vol] 4.3 g/dL 3.5 - 5.2 g/dL [place] Albumin/Globulin [Mass ratio] NOT REPORTED [place] ALP [Catalytic activity/Vol] 71 U/L 40 - 129 U/L [place] ALT [Catalytic activity/Vol] 20 U/L 5 - 41 U/L [place] Anion gap [Moles/Vol] 12 mmol/L 9 - 17 mmol/L [place] AST [Catalytic activity/Vol] 24 U/L <40 [place] Bilirubin Ql (U) 0.42 mg/dL 0.3 - 1.2 mg/dL [place] Bun/Cre Ratio NOT REPORTED [place] Calcium [Mass/Vol] 9.0 mg/dL 8.6 - 10. 4 mg/dL [place] Chloride [Moles/Vol] 101 mmol/L 98 - 10 7 mmol/L [place] CO2 [Moles/Vol] 26 mmol/L 20 - 31 mmol/L [place] Creatinine [Mass/Vol] 0.79 mg/dL 0.7 - 1.2 mg/dL [place] GFR >60 >60 mL/min [place] GFR Non- >60 >60 mL/min [place] GFR/1.73 sq M predicted among non-blacks MDRD (S/P/Bld) [Vol rate/Area] [place] Comment on above: Average GFR for 50-5 9 years old: 93 mL/min/1.73sq m Chronic Kidney Disease: <60 mL/min/1.73sq m Kidney failure: <15 mL/min/1.73sq m eGFR calculated using average adult body mass. Additional eGFR calculator available at: http://www.[employer]multiple_crcl_2012.htm GFR/1.73 sq M predicted among non-blacks MDRD (S/P/Bld) [Vol rate/Area] NOT REPORTED [place] Glucose [Mass/Vol] 168 mg/dL High 70 - 99 mg/dL [place] Potassium [Moles/Vol] 4.1 mmol/L 3.7 - 5.3 mmol/L [place] Protein [Mass/Vol] 7.3 g/dL 6.4 - 8.3 g/dL [place] Sodium [Moles/Vol] 139 mmol/L 135 - 144 mmol/L [place] Urea nitrogen [Mass/Vol] 15 mg/dL 6 - 20 mg/dL [place] LACTATE DEHYDROGENASEon 08-15 LD 161 U/L 135 - 225 U/L [place] Lipaseon 09-11-2019 Lipase [Catalytic activity/Vol] 12 U/L Low 13 - 60 U/L [place] Otheron 09-11-2019 Interpretation and review of laboratory results Abnormal [place] Immature granulocytes (Bld) [#/Vol] NOT REPORTED 0 % [place] Urinalysison 09-11-2019 Bilirubin Urine Negative NEGATIVE [place] Color, UA YELLOW YELLOW [place], [place] Glucose, Ur Negative NEGATIVE [place] Interpretation and review of laboratory results Abnormal [place] Ketones Ql (U) SMALL Abnormal NEGATIVE [place] Leukocyte esterase Test strip Ql (U) Negative NEGATIVE [place] Nitrite, Urine Negative NEGATIVE [place] pH, UA 6.0 [place], [place] Protein (U) [Mass/Vol] Negative NEGATIVE [place] Specific Jones, UA 1.043 High [place] Turbidity UA CLEAR CLEAR [place] Urinalysis Comments Microscopic exam not performed based on chemical results unless requested in original order. [place] Urine Hgb Negative NEGATIVE [place] Urobilinogen, Urine Normal Normal [place] CBC with DIFFon 09-03-2019 Basophils (Bld) [#/Vol] 0.10 10*3/uL [place] Basophils/100 WBC (Bld) 1 % 0 - 2 % [place] Differential Type NOT REPORTED [place] Eosinophils (Bld) [#/Vol] 0.10 10*3/uL [place] Eosinophils/100 WBC (Bld) 2 % 0 - 4 % [place] Erythrocyte distribution width (RBC) [Ratio] 13.1 % 11.5 - 14.9 % [place] Hematocrit (Bld) [Volume fraction] 39.9 % Low 41 - 53 % [place] Hemoglobin (Bld) [Mass/Vol] 13.5 g/dL 13.5 - 17.5 g/dL [place] Interpretation and review of laboratory results Abnormal [place] Lymphocytes (Bld) [#/Vol] 1.50 10*3/uL [place] Lymphocytes/100 WBC (Bld) 23 % Low 24 - 44 % [place] MCH (RBC) [Entitic mass] 30.0 pg 26 - 34 pg [place] MCHC (RBC) [Mass/Vol] 33.9 g/dL 31 - 37 g/dL [place] MCV (RBC) [Entitic vol] 88.7 fL 80 - 100 fL [place] Monocytes (Bld) [#/Vol] 0.60 10*3/uL [place] Monocytes/100 WBC (Bld) 10 % High 1 - 7 % [place] Platelet mean volume (Bld) [Entitic vol] 7.8 fL 6 - 12 fL [place] Platelets (Bld) [#/Vol] 232 10*3/uL [place] Platelets (Bld) [#/Vol] NOT REPORTED [place] RBC (Bld) [#/Vol] 4.49 10*6/uL Low 4.5 - 5.9 m/uL [place] RBC morphology finding Nom (Bld) NOT REPORTED [place] Segmented neutrophils/100 WBC (Bld) 64 % 36 - 66 % [place] Segs Absolute 4.30 [place] WBC (Bld) [#/Vol] NOT REPORTED per 100 WBC [place] WBC (Bld) [#/Vol] 6.6 10*3/uL [place] WBC Morphology NOT REPORTED [place] Comprehensive Metabolic Pane shant 09-03-2019 Albumin [Mass/Vol] 4.2 g/dL 3.5 - 5.2 g/dL [place] Albumin/Globulin [Mass ratio] NOT REPORTED [place] ALP [Catalytic activity/Vol] 76 U/L 40 - 129 U/L [place] ALT [Catalytic activity/Vol] 19 U/L 5 - 41 U/L [place] Anion gap [Moles/Vol] 12 mmol/L 9 - 17 mmol/L [place] AST [Catalytic activity/Vol] 19 U/L <40 [place] Bilirubin Ql (U) 0.25 mg/dL Low 0.3 - 1.2 mg/dL [place] Bun/Cre Ratio NOT REPORTED [place] Calcium [Mass/Vol] 8.9 mg/dL 8.6 - 10. 4 mg/dL [place] Chloride [Moles/Vol] 97 mmol/L Low 98 - 10 7 mmol/L [place] CO2 [Moles/Vol] 27 mmol/L 20 - 31 mmol/L [place] Creatinine [Mass/Vol] 0.7 mg/dL 0.7 - 1.2 mg/dL [place] GFR >60 >60 mL/min [place] GFR Non- >60 >60 mL/min [place] GFR/1.73 sq M predicted among non-blacks MDRD (S/P/Bld) [Vol rate/Area] NOT REPORTED [place] GFR/1.73 sq M predicted among non-blacks MDRD (S/P/Bld) [Vol rate/Area] [place] Comment on above: Average GFR for 50-5 9 years old: 93 mL/min/1.73sq m Chronic Kidney Disease: <60 mL/min/1.73sq m Kidney failure: <15 mL/min/1.73sq m eGFR calculated using average adult body mass. Additional eGFR calculator available at: http://www.[employer]multiple_crcl_2012.htm Glucose [Mass/Vol] 245 mg/dL High 70 - 99 mg/dL [place] Interpretation and review of laboratory results Abnormal [place] Potassium [Moles/Vol] 4.5 mmol/L 3.7 - 5.3 mmol/L [place] Protein [Mass/Vol] 7.0 g/dL 6.4 - 8.3 g/dL [place] Sodium [Moles/Vol] 136 mmol/L 135 - 144 mmol/L [place] Urea nitrogen [Mass/Vol] 17 mg/dL 6 - 20 mg/dL [place] Otheron 09-03-2019 Immature granulocytes (Bld) [#/Vol] NOT REPORTED 0 % [place] Urinalysis Reflex to Culture on 09-03-2019 Bilirubin Urine Negative NEGATIVE [place] Color, UA YELLOW YELLOW [place] Glucose, Ur Negative NEGATIVE [place] Ketones Ql (U) Negative NEGATIVE [place] Leukocyte esterase Test strip Ql (U) Negative NEGATIVE [place] Nitrite, Urine Negative NEGATIVE [place] pH, UA 7.0 [place] Protein (U) [Mass/Vol] Negative NEGATIVE [facility] [place] Specific Jones, UA 1.003 [facility] [place] Turbidity UA CLEAR CLEAR [facility] [place] Urinalysis Comments Microscopic exam not performed based on chemical results unless requested in original order. [facility] [place] Urine Hgb Negative NEGATIVE [facility] Urobilinogen, Urine Normal Normal [facility] Vital Signs Date Time Vital Sign Value Performing Clinician Moses dunlap 01-27-2025 14:00-0400 Body height 175.3 cm Chani Weinberg APRN-JUNIOR NETWORK ADMINISTRATOR [facility] 01-27-2025 14:00-0400 Body mass index (BMI) [Ratio] 21.08 kg/m2 Chani Weinberg APRN-JUNIOR NETWORK ADMINISTRATOR [facility] 01-27-2025 14:00-0400 Body temperature 97.59 [degF] Chani Weinberg APRNXcalia [facility] 01-27-2025 14:00-0400 Body weight 64.77 kg Chani Weinberg APRNXcalia Work Phone: [facility] 01-27-2025 14:00-0400 Diastolic blood pressure 76 mm[Hg] Chani Weinberg APRN-JUNIOR NETWORK ADMINISTRATOR [facility] Phone: [facility] 01-27-2025 14:00-0400 Heart rate 84 /min Chani Weinberg APRNXcalia [facility] 01-27-2025 14:00-0400 SaO2% (BldA) [Mass fraction] 98 % Chani Weinberg APRNXcalia Work Phone: [facility] 01-27-2025 14:00-0400 Systolic blood pressure 118 mm[Hg] Chani Weinberg APRN-JUNIOR NETWORK ADMINISTRATOR [facility] 12-09-2024 11:21-0400 Body height 175.3 cm Chani Weinberg APRNXcalia Work Phone: [facility] [employer] 12-09-2024 11:21-0400 Body mass index (BMI) [Ratio] 22.11 kg/m2 Chani Weinberg APRN-JUNIOR NETWORK ADMINISTRATOR Work Phone: [facility] 12-09-2024 11:21-0400 Body temperature 97.5 [degF] Chani Weinberg APRN-JUNIOR NETWORK ADMINISTRATOR Work Phone: [facility] 12-09-2024 11:21-0400 Body weight 67.95 kg Chani Weinberg APRN-JUNIOR NETWORK ADMINISTRATOR Work Phone: [facility] [employer] 12-09-2024 11:21-0400 Diastolic blood pressure 82 mm[Hg] Chani Weinberg APRN-JUNIOR NETWORK ADMINISTRATOR Work Phone: [facility] [employer] 12-09-2024 11:21-0400 Heart rate 79 /min Chani Weinberg APRN-SARAH Work Phone: [facility] 12-09-2024 11:21-0400 SaO2% (BldA) [Mass fraction] 97 % Chani Weinberg APRN-SARAH Work Phone: [facility] [employer] 12-09-2024 11:21-0400 Systolic blood pressure 140 mm[Hg] Chani Weinberg APRN-SARAH Work Phone: [facility] 10-26-2024 14:01-0400 Body height 175.3 cm Chani Weinberg APRN-JUNIOR NETWORK ADMINISTRATOR Work Phone: [facility] 10-26-2024 14:01-0400 Body mass index (BMI) [Ratio] 22.11 kg/m2 Chani Weinberg APRN-SARAH Work Phone: [facility] 10-26-2024 14:01-0400 Body temperature 97.11 [degF] Chani Weinberg APRN-JUNIOR NETWORK ADMINISTRATOR Work Phone: [facility] 10-26-2024 14:01-0400 Body weight 67.95 kg Chani Weinberg APRN-JUNIOR NETWORK ADMINISTRATOR Work Phone: [facility] 10-26-2024 14:01-0400 Diastolic blood pressure 80 mm[Hg] Chani Weinberg APRN-JUNIOR NETWORK ADMINISTRATOR Work Phone: [facility] 10-26-2024 14:01-0400 Heart rate 75 /min Chani Weinberg APRN-JUNIOR NETWORK ADMINISTRATOR Work Phone: [facility] 10-26-2024 14:01-0400 SaO2% (BldA) [Mass fraction] 93 % Chani Weinberg APRN-JUNIOR NETWORK ADMINISTRATOR Work Phone: [facility] 10-26-2024 14:01-0400 Systolic blood pressure 122 mm[Hg] Chani Weinberg APRN-JUNIOR NETWORK ADMINISTRATOR Work Phone: [facility] 07-27-2024 14:06-0500 Body height 175.3 cm Chani Weinberg APRN-JUNIOR NETWORK ADMINISTRATOR Work Phone: [facility] [employer] 07-27-2024 14:06-0500 Body mass index (BMI) [Ratio] 22.64 kg/m2 Chani Weinberg APRN-JUNIOR NETWORK ADMINISTRATOR Work Phone: [facility] 07-27-2024 14:06-0500 Body temperature 98.1 [degF] Chani Weinberg APRN-JUNIOR NETWORK ADMINISTRATOR Work Phone: [facility] 07-27-2024 14:06-0500 Body weight 69.58 kg Chani Weinberg APRN-JUNIOR NETWORK ADMINISTRATOR Work Phone: [facility] 07-27-2024 14:06-0500 Diastolic blood pressure 84 mm[Hg] Chani Weinberg APRN-JUNIOR NETWORK ADMINISTRATOR Work Phone: [facility] 07-27-2024 14:06-0500 Heart rate 73 /min Chani Weinberg APRN-JUNIOR NETWORK ADMINISTRATOR Work Phone: [facility] 07-27-2024 14:06-0500 SaO2% (BldA) [Mass fraction] 98 % Chani Weinberg CHILD SUPPORT INVESTIGATOR-JUNIOR NETWORK ADMINISTRATOR Work Phone: [facility] 07-27-2024 14:06-0500 Systolic blood pressure 140 mm[Hg] Chani Weinberg CHILD SUPPORT INVESTIGATOR-JUNIOR NETWORK ADMINISTRATOR Work Phone: [facility] 05-31-2024 15:51-0500 Body height 177.8 cm Pratima Cortes HOSPITAL PHARMACY TECHNICIAN Work Phone: [facility] 05-31-2024 15:51-0500 Body mass index (BMI) [Ratio] 21.52 kg/m2 Pratima Cortes HOSPITAL PHARMACY TECHNICIAN Work Phone: [facility] 05-31-2024 15:51-0500 Body temperature 97.7 [degF] Pratima Cortes HOSPITAL PHARMACY TECHNICIAN Work Phone: [facility] 05-31-2024 15:51-0500 Body weight 68.04 kg Pratima Cortes HOSPITAL PHARMACY TECHNICIAN Work Phone: [facility] 05-31-2024 15:51-0500 Diastolic blood pressure 84 mm[Hg] Pratima Cortes HOSPITAL PHARMACY TECHNICIAN Work Phone: [facility] 05-31-2024 15:51-0500 Heart rate 61 /min Pratima Cortes HOSPITAL PHARMACY TECHNICIAN Work Phone: [facility] 05-31-2024 15:51-0500 SaO2% (BldA) [Mass fraction] 99 % Pratima Cortes HOSPITAL PHARMACY TECHNICIAN Work Phone: [facility] 05-31-2024 15:51-0500 Systolic blood pressure 134 mm[Hg] Pratima Cortes HOSPITAL PHARMACY TECHNICIAN Work Phone: [facility] 04-23-2024 13:59-0500 Body height 175.3 cm Chani Weinberg CHILD SUPPORT INVESTIGATOR-JUNIOR NETWORK ADMINISTRATOR Work Phone: [facility] 04-23-2024 13:59-0500 Body mass index (BMI) [Ratio] 22.32 kg/m2 Chani Livingood CHILD SUPPORT INVESTIGATOR-JUNIOR NETWORK ADMINISTRATOR Work Phone: [facility] 04-23-2024 13:59-0500 Body temperature 98.2 [degF] Chani Weinberg CHILD SUPPORT INVESTIGATOR-JUNIOR NETWORK ADMINISTRATOR Work Phone: [facility] 04-23-2024 13:59-0500 Body weight 68.58 kg Chani Weinberg CHILD SUPPORT INVESTIGATOR-JUNIOR NETWORK ADMINISTRATOR Work Phone: [facility] 04-23-2024 13:59-0500 Diastolic blood pressure 84 mm[Hg] Chani Weinberg CHILD SUPPORT INVESTIGATOR-JUNIOR NETWORK ADMINISTRATOR Work Phone: [facility] 04-23-2024 13:59-0500 Heart rate 84 /min Chani Weinberg CHILD SUPPORT INVESTIGATOR-JUNIOR NETWORK ADMINISTRATOR Work Phone: [facility] 04-23-2024 13:59-0500 SaO2% (BldA) [Mass fraction] 99 % Chani Weinberg APRN-JUNIOR NETWORK ADMINISTRATOR Work Phone: [facility] 04-23-2024 13:59-0500 Systolic blood pressure 130 mm[Hg] Chani Weinberg APRN-JUNIOR NETWORK ADMINISTRATOR Work Phone: [facility] 03-19-2024 14:02-0400 Body mass index (BMI) [Ratio] 21.61 kg/m2 Chani Weinberg APRN-JUNIOR NETWORK ADMINISTRATOR Work Phone: [facility] 03-19-2024 14:02-0400 Body temperature 97.9 [degF] Chani Weinberg APRN-JUNIOR NETWORK ADMINISTRATOR Work Phone: [facility] 03-19-2024 14:02-0400 Body weight 66.41 kg Chani Weinberg APRN-JUNIOR NETWORK ADMINISTRATOR Work Phone: [facility] 03-19-2024 14:02-0400 Diastolic blood pressure 80 mm[Hg] Chani Weinberg CHILD SUPPORT INVESTIGATOR-JUNIOR NETWORK ADMINISTRATOR Work Phone: [facility] 03-19-2024 14:02-0400 Heart rate 86 /min Chani Weinberg APRN-JUNIOR NETWORK ADMINISTRATOR Work Phone: [facility] 03-19-2024 14:02-0400 SaO2% (BldA) [Mass fraction] 97 % Chani Weinberg APRN-JUNIOR NETWORK ADMINISTRATOR Work Phone: [facility] 03-19-2024 14:02-0400 Systolic blood pressure 130 mm[Hg] Chani Weinberg APRN-JUNIOR NETWORK ADMINISTRATOR Work Phone: [facility] 02-17-2024 11:39-0400 Body mass index (BMI) [Ratio] 21.82 kg/m2 Chani Weinberg CHILD SUPPORT INVESTIGATOR-JUNIOR NETWORK ADMINISTRATOR Work Phone: [facility] 02-17-2024 11:39-0400 Body temperature 98.8 [degF] Chani Weinberg APRN-JUNIOR NETWORK ADMINISTRATOR Work Phone: [facility] 02-17-2024 11:39-0400 Body weight 67.04 kg Chani Weinberg APRN-JUNIOR NETWORK ADMINISTRATOR Work Phone: [facility] 02-17-2024 11:39-0400 Diastolic blood pressure 80 mm[Hg] Chani Weinberg APRN-JUNIOR NETWORK ADMINISTRATOR Work Phone: [facility] 02-17-2024 11:39-0400 Heart rate 71 /min Chani Weinberg APRN-JUNIOR NETWORK ADMINISTRATOR Work Phone: [facility] 02-17-2024 11:39-0400 SaO2% (BldA) [Mass fraction] 96 % Chani Weinberg APRN-JUNIOR NETWORK ADMINISTRATOR Work Phone: [facility] 02-17-2024 11:39-0400 Systolic blood pressure 140 mm[Hg] Chani Weinberg CHILD SUPPORT INVESTIGATOR-JUNIOR NETWORK ADMINISTRATOR Work Phone: [facility] 01-30-2024 16:06-0400 Body height 175.3 cm Chani Weinberg APRN-JUNIOR NETWORK ADMINISTRATOR Work Phone: [facility] 01-30-2024 16:06-0400 Body mass index (BMI) [Ratio] 21.82 kg/m2 Chani Weinberg APRN-SARAH Work Phone: [facility] 01-30-2024 16:06-0400 Body temperature 98.4 [degF] Chani Weinberg APRN-JUNIOR NETWORK ADMINISTRATOR Work Phone: [facility] 01-30-2024 16:06-0400 Body weight 67.04 kg Chani Weinberg APRN-JUNIOR NETWORK ADMINISTRATOR Work Phone: [facility] 01-30-2024 16:06-0400 Diastolic blood pressure 80 mm[Hg] Chani Weinberg APRN-JUNIOR NETWORK ADMINISTRATOR Work Phone: [facility] 01-30-2024 16:06-0400 Heart rate 69 /min Chani Weinberg APRN-JUNIOR NETWORK ADMINISTRATOR Work Phone: [facility] 01-30-2024 16:06-0400 SaO2% (BldA) [Mass fraction] 94 % Chani Weinberg APRN-JUNIOR NETWORK ADMINISTRATOR Work Phone: [facility] 01-30-2024 16:06-0400 Systolic blood pressure 120 mm[Hg] Chani Weinberg APRN-JUNIOR NETWORK ADMINISTRATOR Work Phone: [facility] 12-22-2023 14:37-0400 Blood Pressure Location Kimmarianne ORTIZ [facility] 12-22-2023 14:37-0400 Body temperature 98.6 [degF] Kimmarianne ORTIZ [facility] 12-22-2023 14:37-0400 Diastolic blood pressure 77 mm[Hg] Kim ORTIZ [facility] 12-22-2023 14:37-0400 Heart rate 82 /min Kim ORTIZ [facility] 12-22-2023 14:37-0400 Respiratory rate 16 /min Kim ORTIZ [facility] 12-22-2023 14:37-0400 Systolic blood pressure 134 mm[Hg] Kim ORTIZ [facility] 12-09-2023 14:03-0400 Body height 175.3 cm Chani Weinberg CHILD SUPPORT INVESTIGATOR-JUNIOR NETWORK ADMINISTRATOR Work Phone: [facility] 12-09-2023 14:03-0400 Body mass index (BMI) [Ratio] 22.23 kg/m2 Chani Livingood CHILD SUPPORT INVESTIGATOR-JUNIOR NETWORK ADMINISTRATOR [facility] 12-09-2023 14:03-0400 Body temperature 98.6 [degF] Chani Weinberg CHILD SUPPORT INVESTIGATOR-JUNIOR NETWORK ADMINISTRATOR Work Phone: [facility] [employer] 12-09-2023 14:03-0400 Body weight 68.31 kg Chani Livingood CHILD SUPPORT INVESTIGATOR-JUNIOR NETWORK ADMINISTRATOR [facility] 12-09-2023 14:03-0400 Diastolic blood pressure 80 mm[Hg] Chani Livingood CHILD SUPPORT INVESTIGATOR-JUNIOR NETWORK ADMINISTRATOR [facility]: [facility] 12-09-2023 14:03-0400 Heart rate 82 /min Chani Livingood CHILD SUPPORT INVESTIGATOR-JUNIOR NETWORK ADMINISTRATOR [facility] 12-09-2023 14:03-0400 SaO2% (BldA) [Mass fraction] 96 % Chani Livingood CHILD SUPPORT INVESTIGATOR-JUNIOR NETWORK ADMINISTRATOR Work Phone[facility] 12-09-2023 14:03-0400 Systolic blood pressure 120 mm[Hg] Chani Livingood CHILD SUPPORT INVESTIGATOR-JUNIOR NETWORK ADMINISTRATOR Work Phone: [facility] 10-16-2023 15:00-0400 Body height 175.3 cm Chani Livingood CHILD SUPPORT INVESTIGATOR-JUNIOR NETWORK ADMINISTRATOR Work Phone: [facility] 10-16-2023 15:00-0400 Body mass index (BMI) [Ratio] 22.2 kg/m2 Chani Weinberg APRN-SARAH Work Phone: [facility] 10-16-2023 15:00-0400 Body temperature 97.5 [degF] Chani Weinberg APRN-SARAH [facility] 10-16-2023 15:00-0400 Body weight 68.22 kg Chani Weinberg APRN-SARAH [facility] 10-16-2023 15:00-0400 Diastolic blood pressure 82 mm[Hg] Chani Weinberg APRN-SARAH [facility] 10-16-2023 15:00-0400 Heart rate 77 /min Chani Weinberg APRN-SARAH [facility] 10-16-2023 15:00-0400 SaO2% (BldA) [Mass fraction] 97 % Chani Weinberg APRN-SARAH Work [facility] 10-16-2023 15:00-0400 Systolic blood pressure 120 mm[Hg] Chani Weinberg APRN-SARAH [facility]: [facility] 10-06-2023 13:57-0400 Body height 175.3 cm Chas Roman DO [facility] 10-06-2023 13:57-0400 Body mass index (BMI) [Ratio] 22.64 kg/m2 Chas Hannaner DO Work Phone: [facility] 10-06-2023 13:57-0400 Body temperature 97.81 [degF] Chas Hannaner DO Work [facility]: [facility] 10-06-2023 13:57-0400 Body weight 69.58 kg Chas Hapner DO Work Phone: [facility] 10-06-2023 13:57-0400 Diastolic blood pressure 82 mm[Hg] Chas Hapner DO [facility] 10-06-2023 13:57-0400 Heart rate 64 /min Chas Hapner DO [facility] 10-06-2023 13:57-0400 SaO2% (BldA) [Mass fraction] 98 % Chas Hapner DO Work Phone: [facility] 10-06-2023 13:57-0400 Systolic blood pressure 124 mm[Hg] Chas Hapner DO Work Phone: [facility] 09-04-2023 15:01-0400 Body height 175.3 cm Chani Weinberg APRN-JUNIOR NETWORK ADMINISTRATOR [facility]: [facility] 09-04-2023 15:01-0400 Body mass index (BMI) [Ratio] 22.88 kg/m2 Chani Weinberg APRN-JUNIOR NETWORK ADMINISTRATOR Work Phone: [facility] 09-04-2023 15:01-0400 Body temperature 98.1 [degF] Chani Weinberg CHILD SUPPORT INVESTIGATOR-JUNIOR NETWORK ADMINISTRATOR Work Phone: [facility] 09-04-2023 15:01-0400 Body weight 70.31 kg Chani Weinberg CHILD SUPPORT INVESTIGATOR-JUNIOR NETWORK ADMINISTRATOR Work Phone: [facility] 09-04-2023 15:01-0400 Diastolic blood pressure 82 mm[Hg] Chani Weinberg CHILD SUPPORT INVESTIGATOR-JUNIOR NETWORK ADMINISTRATOR Work Phone: [facility] 09-04-2023 15:01-0400 Heart rate 76 /min Chani Weinberg CHILD SUPPORT INVESTIGATOR-JUNIOR NETWORK ADMINISTRATOR Work Phone: [facility] 09-04-2023 15:01-0400 SaO2% (BldA) [Mass fraction] 96 % Chani Livingood CHILD SUPPORT INVESTIGATOR-JUNIOR NETWORK ADMINISTRATOR [facility] 09-04-2023 15:01-0400 Systolic blood pressure 130 mm[Hg] Chani Weinberg CHILD SUPPORT INVESTIGATOR-JUNIOR NETWORK ADMINISTRATOR Work Phone: [facility] 07-10-2023 14:56-0500 Body height 175.3 cm Chani Weinberg CHILD SUPPORT INVESTIGATOR-JUNIOR NETWORK ADMINISTRATOR Work Phone: [facility] [employer] 07-10-2023 14:56-0500 Body mass index (BMI) [Ratio] 23.09 kg/m2 Chani Weinberg CHILD SUPPORT INVESTIGATOR-JUNIOR NETWORK ADMINISTRATOR Work Phone: [facility] [employer] 07-10-2023 14:56-0500 Body temperature 98.4 [degF] Chani Weinberg CHILD SUPPORT INVESTIGATOR-JUNIOR NETWORK ADMINISTRATOR Work Phone: [facility] [employer] 07-10-2023 14:56-0500 Body weight 70.94 kg Chani Weinberg CHILD SUPPORT INVESTIGATOR-JUNIOR NETWORK ADMINISTRATOR Work Phone: [facility] [employer] 07-10-2023 14:56-0500 Diastolic blood pressure 82 mm[Hg] Chani Weinberg CHILD SUPPORT INVESTIGATOR-JUNIOR NETWORK ADMINISTRATOR Work Phone: [facility] [employer] 07-10-2023 14:56-0500 Heart rate 84 /min Chani Weinberg CHILD SUPPORT INVESTIGATOR-JUNIOR NETWORK ADMINISTRATOR Work Phone: [facility] [employer] 07-10-2023 14:56-0500 SaO2% (BldA) [Mass fraction] 97 % Chani Weinberg CHILD SUPPORT INVESTIGATOR-JUNIOR NETWORK ADMINISTRATOR Work Phone: [facility] [employer] 07-10-2023 14:56-0500 Systolic blood pressure 122 mm[Hg] Chani Weinberg CHILD SUPPORT INVESTIGATOR-JUNIOR NETWORK ADMINISTRATOR Work Phone: [facility] 06-06-2023 14:51-0500 Body height 175.3 cm Chani Weinberg CHILD SUPPORT INVESTIGATOR-JUNIOR NETWORK ADMINISTRATOR Work Phone: [facility] 06-06-2023 14:51-0500 Body mass index (BMI) [Ratio] 22.64 kg/m2 Chani Weinberg APRN-JUNIOR NETWORK ADMINISTRATOR Work Phone: [facility] 06-06-2023 14:51-0500 Body temperature 97.3 [degF] Chani Weinberg APRN-JUNIOR NETWORK ADMINISTRATOR [facility] 06-06-2023 14:51-0500 Body weight 69.58 kg Chani Weinberg APRN-JUNIOR NETWORK ADMINISTRATOR Work Phone[facility] 06-06-2023 14:51-0500 Diastolic blood pressure 76 mm[Hg] Chani Weinberg APRN-JUNIOR NETWORK ADMINISTRATOR Work Phone: [facility] 06-06-2023 14:51-0500 Heart rate 72 /min Chani Weinberg APRN-JUNIOR NETWORK ADMINISTRATOR Work Phone: [facility] [employer] 06-06-2023 14:51-0500 SaO2% (BldA) [Mass fraction] 99 % Chani Weinberg APRN-JUNIOR NETWORK ADMINISTRATOR Work [facility] 06-06-2023 14:51-0500 Systolic blood pressure 120 mm[Hg] Chani Weinberg APRN-JUNIOR NETWORK ADMINISTRATOR Work Phone: [facility] 10-30-2021 13:49-0400 Body temperature 97.11 [degF] Colton Romero MD Work Phone: [employer] 10-30-2021 13:49-0400 Diastolic blood pressure 63 mm[Hg] Colton Romero MD Work Phone: [employer] 10-30-2021 13:49-0400 Heart rate 60 /min Colton Romero MD Work Phone: [employer] 10-30-2021 13:49-0400 Respiratory rate 12 /min Colton Romero MD Work Phone: [employer] 10-30-2021 13:49-0400 SaO2% (BldA) [Mass fraction] 99 % Colton Romero MD Work Phone: [employer] 10-30-2021 13:49-0400 Systolic blood pressure 116 mm[Hg] Colton Romero MD Work Phone: [employer] 10-30-2021 11:30-0400 Body height 177.8 cm Colton Romero MD Work Phone: [employer] 10-30-2021 11:30-0400 Body mass index (BMI) [Ratio] 22.24 kg/m2 Colton Romero MD Work Phone: [employer] 10-30-2021 11:30-0400 Body weight 70.31 kg Colton Romero MD Work Phone: [employer] 10-18-2021 14:21-0400 Body height 177.8 cm St[facility] [employer] 10-18-2021 14:21-0400 Body mass index (BMI) [Ratio] 22.24 kg/m2 [facility] [employer] 10-18-2021 14:21-0400 Body weight 70.31 kg Stcz [employer] 07-31-2020 18:54-0500 BMI (Body Mass Index) 22.96 kg/m2 [employer] Work Phone: 07-31-2020 18:54-0500 Body Temperature 98.1 [degF] [employer] Work Phone: 07-31-2020 18:54-0500 Body weight 72.58 kg [employer] Work Phone: 07-31-2020 18:54-0500 Height 177.8 cm [employer] Work Phone: 07-31-2020 18:54-0500 Pulse (Heart Rate) 82 /min [employer] Work Phone: 07-31-2020 18:54-0500 Pulse Oximetry 97 % [employer] Work Phone: 02-15-2021 18:54-0500 Respiratory Rate 18 /min Sebastian Allen [facility] Work Phone: 09-11-2019 09:26-0400 BMI (Body Mass Index) 22.96 kg/m2 [facility] [place] [facility]-11-2019 09:26-0400 Body Temperature 97.5 [degF] [facility] [facility] [place] 09-11-2019 09:26-0400 Body weight 72.58 kg Freddie [facility] , [place] 09-11-2019 09:26-0400 BP Diastolic 87 mm[Hg] [facility] , [place] 09-11-2019 09:26-0400 BP Systolic 144 mm[Hg] Freddie [facility] [place] 09-11-2019 09:26-0400 Height 177.8 cm Freddie [facility] [place] 09-11-2019 09:26-0400 Pulse (Heart Rate) 92 /min Freddie [facility] 09-11-2019 09:26-0400 Pulse Oximetry 99 % [facility] [place] 09-11-2019 09:26-0400 Respiratory Rate 14 /min Freddie [facility] [place] 09-03-2019 14:07-0400 BMI (Body Mass Index) 22.53 kg/m2 [facility] [place] 09-03-2019 14:07-0400 Body Temperature 97.81 [degF] [facility] [place] 09-03-2019 14:07-0400 Body weight 71.22 kg [facility] [place] 09-03-2019 14:07-0400 BP Diastolic 93 mm[Hg] Tello [facility], [place] 09-03-2019 14:07-0400 BP Systolic 153 mm[Hg] [facility] [place] 09-03-2019 14:07-0400 Pulse (Heart Rate) 75 /min Tello [employer], [place] 09-03-2019 14:07-0400 Pulse Oximetry 100 % [facility]ello [facility] Clinic[facility] 09-03-2019 14:0400 Respiratory Rate 14 /min [facility] Encounters Encounter Date Encounter Type Care Provider Facility Start: 07-25-2025 ambulatory Kim Laboyi [facility] [place] Start: 01-27-2025 End: 01-27-2025 ambulatory [facility] Start: 01-27-2025 End: 01-27-2025 Office outpatient visit 25 minutes [facility] CHILD SUPPORT INVESTIGATOR-JUNIOR NETWORK ADMINISTRATOR Work Phone: [facility] Comment on above: Diabetes mellitus ty pe 1, controlled, insulin dependent ([facility]) (Primary Dx); Mixed hyperlipidemia; Encounter for screening for malignant neoplasm of prostate; Recurrent productive cough; Encounter for screening for depression Start: 01-27-2025 End: 01-27-2025 ambulatory [facility] Start: 01-24-2025 End: 01-24-2025 ambulatory Kim ORTIZ Facility:[facility] Start: 01-24-2025 End: 01-24-2025 Patient encounter procedure Kim ORTIZ [facility] Start: 01-17-2025 End: 01-19-2025 Clinis[facility] Result Encounter Generic External Data Provider [facility] External Department Unsolicited Start: 01-17-2025 End: 01-19-2025 Clinisync Result Encounter Generic External Data Provider [facility] External Department Unsolicited Start: 12-09-2024 End: 12-09-2024 Office outpatient visit 15 minutes [facility] CHILD SUPPORT INVESTIGATOR-JUNIOR NETWORK ADMINISTRATOR Work Phone: [facility] Comment on above: Non-recurrent acute suppurative otitis media of right ear without spontaneous rupture of tympanic membrane (Primary Dx); Cerumen debris on tympanic membrane of right ear; Otitis interna, right Start: 12-09-2024 End: 12-09-2024 ambulatory [facility] Start: 10-26-2024 End: 10-26-2024 Office outpatient visit 25 minutes [facility] CHILD SUPPORT INVESTIGATOR-JUNIOR NETWORK ADMINISTRATOR Work Phone: [facility] Comment on above: Diabetes mellitus ty pe 1, controlled, insulin dependent ([facility]) (Primary Dx); Mixed hyperlipidemia Start: 10-26-2024 End: 10-26-2024 ambulatory [facility] Start: 10-17-2024 End: 10-17-2024 Refill [facility] CHILD SUPPORT INVESTIGATOR-JUNIOR NETWORK ADMINISTRATOR Work Phone: [facility] Start: 10-02-2024 End: 10-02-2024 Refill [facility] CHILD SUPPORT INVESTIGATOR-JUNIOR NETWORK ADMINISTRATOR Work Phone: [facility] Comment on above: Diabetes mellitus ty pe 1, controlled, insulin dependent ([facility] Start: 07-27-2024 End: 07-27-2024 Office outpatient visit 40 minutes [facility] CHILD SUPPORT INVESTIGATOR-JUNIOR NETWORK ADMINISTRATOR Work Phone: [facility] [facility] Comment on above: Diabetes mellitus ty pe 1, controlled, insulin dependent ([facility]) (Primary Dx); Mixed hyperlipidemia; Need for pneumococcal 20-valent conjugate vaccination Start: 07-27-2024 End: 07-27-2024 ambulatory [facility] Start: 06-20-2024 End: 06-21-2024 Refill [facility] CHILD SUPPORT INVESTIGATOR-JUNIOR NETWORK ADMINISTRATOR Work Phone: [facility] Comment on above: Type 1 diabetes donna itus with hyperglycemia ([facility]) Start: 05-31-2024 End: 05-31-2024 Office outpatient visit 15 minutes Pratima Cortes NP Work Phone: [facility] Comment on above: Impacted cerumen, ri ght ear (Primary Dx); Diabetes mellitus type 1, controlled, insulin dependent ([facility]); Acute ear pain, right; Chronic sinusitis, unspecified location Start: 05-31-2024 End: 05-31-2024 ambulatory PRATIMA CORTES Not Available Start: 05-31-2024 End: 05-31-2024 Ryan Cortes HOSPITAL PHARMACY TECHNICIAN Work Phone: [facility] Start: 05-31-2024 End: 05-31-2024 Ryan Cortes HOSPITAL PHARMACY TECHNICIAN Work Phone: [facility] Start: 04-23-2024 End: 04-23-2024 ambulatory [facility] Start: 04-23-2024 Encounter for genera l adult medical examination without abnormal findings [facility] Start: 04-23-2024 End: 04-23-2024 Patient encounter procedure [facility] CHILD SUPPORT INVESTIGATOR-JUNIOR NETWORK ADMINISTRATOR Work Phone: [facility] Start: 04-23-2024 End: 04-23-2024 Periodic preventive med est patient 40-64yrs [facility] CHILD SUPPORT INVESTIGATOR-JUNIOR NETWORK ADMINISTRATOR Work Phone: [facility] Comment on above: Diabetes mellitus ty pe 1, controlled, insulin dependent ([facility]) (Primary Dx); Mixed hyperlipidemia; Prostate cancer screening; Encounter for annual wellness visit Start: 04-23-2024 End: 04-23-2024 ambulatory [facility] Start: 04-23-2024 Encounter for genera l adult medical examination without abnormal findings [facility] Start: 03-19-2024 End: 03-19-2024 Office outpatient visit 25 minutes [facility] CHILD SUPPORT INVESTIGATOR-JUNIOR NETWORK ADMINISTRATOR Work Phone: [facility] Comment on above: Diabetes mellitus ty pe 1, controlled, insulin dependent ([facility]) (Primary Dx); Bilateral foot pain; Need for shingles vaccine; Need for immunization against influenza Start: 03-19-2024 End: 03-19-2024 ambulatory [facility] Start: 02-17-2024 End: 02-17-2024 Office outpatient visit 25 minutes Chani Weinberg CHILD SUPPORT INVESTIGATOR-JUNIOR NETWORK ADMINISTRATOR Work Phone: [facility] Comment on above: Diabetes mellitus ty pe 1, controlled, insulin dependent ([facility]) (Primary Dx); Numbness and tingling of right arm and leg Start: 02-17-2024 End: 02-17-2024 ambulatory [facility] Start: 01-30-2024 End: 01-30-2024 Office outpatient visit 40 minutes Chani Weinberg CHILD SUPPORT INVESTIGATOR-JUNIOR NETWORK ADMINISTRATOR Work Phone: [facility] Comment on above: Diabetes mellitus ty pe 1, controlled, insulin dependent ([facility]) (Primary Dx); Mixed hyperlipidemia; Contusion of right upper extremity, initial encounter; Need for shingles vaccine Start: 12-22-2023 End: 12-22-2023 Patient encounter procedure Kim ORTIZ [facility] Start: 12-16-2023 End: 12-18-2023 ambulatory ALEJANDRO UMAÑA [facility] Start: 12-16-2023 End: 12-18-2023 Subsequent hospital visit by physician Alejandro Umaña MD Work Phone: [facility] CT Scan Comment on above: Intractable tension- type headache, unspecified chronicity pattern Start: 12-16-2023 End: 12-16-2023 ambulatory ALEJANDRO UMAÑA Not Available Start: 12-09-2023 End: 12-09-2023 Office outpatient visit 40 minutes Chani Weinberg CHILD SUPPORT INVESTIGATOR-JUNIOR NETWORK ADMINISTRATOR Work Phone: [facility] Comment on above: Diabetes mellitus ty pe 1, controlled, insulin dependent ([facility]) (Primary Dx) Start: 10-16-2023 End: 10-16-2023 Office outpatient visit 25 minutes Chani Weinberg CHILD SUPPORT INVESTIGATOR-JUNIOR NETWORK ADMINISTRATOR Work Phone: [facility] Comment on above: History of elevated PSA (Primary Dx); Diabetes mellitus type 1, controlled, insulin dependent ([facility]) Start: 10-06-2023 End: 10-06-2023 Office outpatient visit 25 minutes Chas Roman DO Work Phone: [facility] Comment on above: Otalgia of right ear (Primary Dx) Start: 10-03-2023 End: 10-03-2023 ambulatory Alejandro Umaña Facility:[facility] Start: 10-03-2023 End: 10-03-2023 ambulatory MD Alejandro Umaña Work Phone: [facility] Work Phone: Start: 10-03-2023 End: 10-03-2023 Patient encounter procedure MD Alejandro Umaña Work Phone: [facility] Work Phone: Start: 09-04-2023 End: 09-04-2023 Office outpatient visit 40 minutes Chani Weinberg CHILD SUPPORT INVESTIGATOR-JUNIOR NETWORK ADMINISTRATOR Work Phone: [facility] Comment on above: Diabetes mellitus ty pe 1, controlled, insulin dependent ([facility]) (Primary Dx); Mixed hyperlipidemia Start: 08-19-2023 Documentation procedure Tong Daugherty [facility] Work Phone: [facility] Start: 07-10-2023 End: 07-10-2023 Office outpatient visit 40 minutes Chani Weinberg CHILD SUPPORT INVESTIGATOR-JUNIOR NETWORK ADMINISTRATOR Work Phone: [facility] Comment on above: Diabetes mellitus ty pe 1, controlled, insulin dependent ([facility]) (Primary Dx); 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 Start: 06-06-2023 End: 06-06-2023 ambulatory CHANI WEINBERG [facility] Start: 06-06-2023 End: 06-06-2023 Office outpatient visit 25 minutes Chani Weinberg CHILD SUPPORT INVESTIGATOR-JUNIOR NETWORK ADMINISTRATOR Work Phone: [facility] Comment on above: Diabetes mellitus ty pe 1, controlled, insulin dependent ([facility]- [facility]) (Primary Dx) Start: 01-03-2023 End: 01-03-20[facility] Start: 12-27-2022 End: 12-27-2022 ambulatory [facility] Start: 08-06-2022 End: 08-07-[address] KIM ORTIZ . Facility: Start: 10-30-2021 End: 10-30-2021 Subsequent hospital visit by physician Colton Romero MD Work Phone: [facility] Start: 10-18-2021 End: 10-22-2021 Subsequent hospital visit by physician Juhi Krishnan [facility] Pre-Admit [facility] Start: 10-11-2021 End: 10-12-2021 ambulatory [facility] Start: 10-11-2021 End: 10-11-2021 Subsequent hospital visit by physician Alejandro Umaña Other Phone: [facility] Start: 07-31-2020 End: 07-31-2020 Emergency department patient visit Sebastian Allen Work Phone: [facility] ED Comment on above: Abrasion of left low er extremity, initial encounter (Primary Dx) Start: 10-15-2019 End: 10-15-2019 Subsequent hospital visit by physician Alejandro BERMUDEZ Laboratory Start: 09-11-2019 End: 09-11-2019 Emergency department patient visit Freddie Feliz Work Phone: [facility] Comment on above: Abdominal pain, righ t lower quadrant (Primary Dx); Constipation, unspecified constipation type Start: 09-03-2019 End: 09-03-2019 Emergency department patient visit Tello Simpson Work Phone: [facility] ED Comment on above: Urinary retention (P rimary Dx) Procedures Date Procedure Procedure Detail Performing Clinician Start: 01-27-2025 Adult depression scr eening assessment Chani Weinberg CHILD SUPPORT INVESTIGATOR-JUNIOR NETWORK ADMINISTRATOR Work Phone: Start: 01-17-2025 PSA TOTAL+% FREE Generi c External Data Provider Start: 10-26-2024 Hemoglobin glycosyla eden a1c Chani Weinberg CHILD SUPPORT INVESTIGATOR-JUNIOR NETWORK ADMINISTRATOR Work Phone: Start: 07-27-2024 Hemoglobin glycosyla eden a1c Chani Weinberg CHILD SUPPORT INVESTIGATOR-JUNIOR NETWORK ADMINISTRATOR Work Phone: Start: 04-23-2024 Gluc bld gluc mntr d ev cleared fda spec home use Chani Weinberg CHILD SUPPORT INVESTIGATOR-JUNIOR NETWORK ADMINISTRATOR Work Phone: Start: 04-23-2024 Microalbumin [Mass/v olume] in Urine by Test strip Chani Weinberg CHILD SUPPORT INVESTIGATOR-JUNIOR NETWORK ADMINISTRATOR Work Phone: Start: 03-19-2024 Follow-up visit Follow-up CHANI WEINBERG Start: 01-30-2024 Hemoglobin glycosyla eden a1c Chani Weinberg CHILD SUPPORT INVESTIGATOR-JUNIOR NETWORK ADMINISTRATOR Work Phone: Start: 12-16-2023 Ct head/brain w/o co ntrast material Alejandro Umaña MD Work Phone: Start: 12-09-2023 Hemoglobin glycosyla eden a1c Chani Weinberg CHILD SUPPORT INVESTIGATOR-JUNIOR NETWORK ADMINISTRATOR Work Phone: Start: 09-04-2023 Hemoglobin glycosyla eden a1c Chani Weinberg CHILD SUPPORT INVESTIGATOR-JUNIOR NETWORK ADMINISTRATOR Work Phone: Start: 06-06-2023 Hemoglobin glycosyla eden a1c Chani Weinberg CHILD SUPPORT INVESTIGATOR-JUNIOR NETWORK ADMINISTRATOR Work Phone: Start: 06-06-2023 Microalbumin [Mass/v olume] in Urine by Test strip Chani Weinberg CHILD SUPPORT INVESTIGATOR-JUNIOR NETWORK ADMINISTRATOR Work Phone: Start: 08-06-[address] MAURICE ORTIZ . Comment on above: Performed By: #### P SAD #### [facility] [address] [place] [address] Dr. Katherine Matute Start: 10-30-2021 Glucose blood reagen t strip Colton Romero MD Work Phone: Start: 10-30-2021 Colonoscopy Alejandro galan MD Work Phone: Start: 10-11-2021 Urine albumin quantitative Ada Akhtar CPNP Work Phone: Start: 10-11-2021 Microalbumin [Mass/v olume] in Urine by Test strip Chani Weinberg CHILD SUPPORT INVESTIGATOR-JUNIOR NETWORK ADMINISTRATOR Work Phone: Start: 10-15-2019 Iaad ia rotavirus [...] Start: 07-17-2014 Colonoscopy Alejandro galan Other Phone: Start: 05-18-2009 Cystoscopy Kim TAYLOR Colonoscopy Kim ORTIZ Plan of Treatment Date Care Activity Detail Author Start: 10-31-2031 Screening for malignant neoplasm of colon [facility] Start: 2027 Pneumococcal 0-64 years Vaccine (3 - PPSV23 or PCV20) Pneumococcal 0-64 years Vaccine (3 - PPSV23 or PCV20) [facility] Start: 2027 Pneumococcal 0-64 years Vaccine (3 of 3 - PPSV23 or PCV20) Pneumococcal 0-64 years Vaccine (3 of 3 - PPSV23 or PCV20) [facility] Start: 01-27-2026 Adult BMI Screening Adult BMI Screening [facility] Start: 01-27-2026 Depression Screening Depression Screening [facility] Start: 01-27-2026 Tobacco Screening Tobacco Screening [facility] Start: 10-26-2025 Adult BMI Screening Adult BMI Screening [facility] Start: 10-26-2025 COVID-19 Vaccine ( season) COVID-19 Vaccine ( season) [facility] Comment on above: Postponed from 02/15/2024 (Vaccine Not A vailable) Start: 10-26-2025 DTaP,Tdap and Td Vaccines (1 - Tdap) DTaP,Tdap and Td Vaccines (1 - Tdap) [facility] Comment on above: Postponed from 1981 (Patient Refus ed) Start: 10-26-2025 Tobacco Screening Tobacco Screening [facility] Start: 10-17-2025 Statin Use: Diabetic Statin Use: Diabetic [facility] Start: 07-27-2025 Adult BMI Screening Adult BMI Screening [facility] Start: 07-27-2025 Diabetic foot examination Diabetic Foot Exam [facility] Start: 07-27-2025 Tobacco Screening Tobacco Screening [facility] Start: 04-29-2025 End: 04-29-2025 Patient encounter procedure 04/29/2025 3:00 PM EST Office Visit [facility] [address] [place] [address] Chani Weinberg, CHILD SUPPORT INVESTIGATOR-JUNIOR NETWORK ADMINISTRATOR [address] [facility] [address] [facility] Start: 04-23-2025 Adult BMI Screening Adult BMI Screening [facility] Start: 04-23-2025 Tobacco Screening Tobacco Screening [facility] Start: 04-23-2025 Urine screening for protein [facility] Start: 03-19-2025 Adult BMI Screening Adult BMI Screening [facility] Start: 03-19-2025 Diabetic foot examination Diabetic Foot Exam [facility] Start: 03-19-2025 Tobacco Screening Tobacco Screening [facility] Start: 02-16-2025 Adult BMI Screening Adult BMI Screening [facility] Start: 02-16-2025 Tobacco Screening Tobacco Screening [facility] Start: 02-14-2025 Influenza vaccination [facility] Start: 01-29-2025 Adult BMI Screening Adult BMI Screening [facility] Start: 01-29-2025 Tobacco Screening Tobacco Screening [facility] Start: 01-27-2025 End: 01-27-2025 Patient encounter procedure 01/27/2025 2:00 PM EDT Office Visit [facility] [address] [facility] [address] Chani Weinberg, CHILD SUPPORT INVESTIGATOR-JUNIOR NETWORK ADMINISTRATOR [address] [facility] [address] [facility] Start: 12-08-2024 Adult BMI Screening Adult BMI Screening [facility] Start: 12-08-2024 Tobacco Screening Tobacco Screening [facility] Start: 10-26-2024 End: 10-26-2024 Patient encounter procedure 10/26/2024 2:00 PM EDT Office Visit [facility] [address] [place] [address] Chani Weinberg, CHILD SUPPORT INVESTIGATOR-JUNIOR NETWORK ADMINISTRATOR [address] [place] [address] [facility] Start: 10-15-2024 Adult BMI Screening Adult BMI Screening [facility] Start: 10-15-2024 Tobacco Screening Tobacco Screening [facility] Start: 10-05-2024 Adult BMI Screening Adult BMI Screening [facility] Start: 09-03-2024 Adult BMI Screening Adult BMI Screening [facility] Start: 09-03-2024 Tobacco Screening Tobacco Screening [facility] Start: 07-27-2024 End: 07-27-2024 Patient encounter procedure 07/27/2024 2:00 PM EST Office Visit [facility] [address] [place] [address] Chani Weinberg, CHILD SUPPORT INVESTIGATOR-JUNIOR NETWORK ADMINISTRATOR [address] [place] [address] [facility] Start: 07-24-2024 Hemoglobin A1c measurement Diabetes: Hemoglobin A1C [facility] Start: 07-17-2024 Colon cancer screen colonoscopy Colon cancer screen colonoscopy [place] Start: 07-17-2024 Screening for malignant neoplasm of colon [facility] Start: 07-10-2024 Adult BMI Screening Adult BMI Screening [facility] Start: 07-10-2024 Tobacco Screening Tobacco Screening [facility] Start: 06-06-2024 Adult BMI Screening Adult BMI Screening [facility] Start: 06-06-2024 Tobacco Screening Tobacco Screening [facility] Start: 06-06-2024 Urine screening for protein Urine Microalbumin [facility] Start: 05-31-2024 End: 05-31-2024 Patient encounter procedure 05/31/2024 4:00 PM EST Office Visit [facility] [address] [place] [id number] [place] [address] [place] [address] Arrived [facility] Comment on above: Arrived Start: 05-04-2024 End: 05-04-2024 Patient encounter procedure 05/04/2024 4:00 PM EST Office Visit [facility] [address] [place] [address] Chani Weinberg, CHILD SUPPORT INVESTIGATOR-JUNIOR NETWORK ADMINISTRATOR [address] [place] [address] [facility] Start: 04-23-2024 End: 04-23-2024 Patient encounter procedure 04/23/2024 2:00 PM EST Office Visit [facility] [address] [place] [address] Chani Weinberg, CHILD SUPPORT INVESTIGATOR-JUNIOR NETWORK ADMINISTRATOR [address] [place] [address] [facility] Start: 03-26-2024 Administration of varicella zoster vaccine Zoster (Shingles) Vaccine (2 of 2) [facility] Start: 03-09-2024 End: 03-09-2024 Patient encounter procedure 03/09/2024 4:00 PM EDT Office Visit [facility] [address] [place] [address] Chani Weinberg, CHILD SUPPORT INVESTIGATOR-JUNIOR NETWORK ADMINISTRATOR [address] [place] [address] [facility] Start: 02-15-2024 COVID-19 Vaccine ( season) COVID-19 Vaccine ( season) [facility] Start: 02-15-2024 Influenza vaccination Influenza Vaccine [facility] Start: 02-14-2024 Diabetic foot examination Diabetic Foot Exam [facility] Start: 01-16-2024 End: 01-16-2024 Patient encounter procedure 01/16/2024 3:00 PM EDT Office Visit [facility] [address] [place] [address] Chani Weinberg, CHILD SUPPORT INVESTIGATOR-JUNIOR NETWORK ADMINISTRATOR [address] [place] [address] [facility] Start: 01-15-2024 Influenza vaccination Flu vaccine (#1) [facility] Start: 11-27-2023 GFR test (Diabetes, CKD 3-4, OR last GFR 15-59) GFR test (Diabetes, CKD 3-4, OR last GFR 15-59) [facility] Start: 10-16-2023 End: 10-16-2023 Patient encounter procedure 10/16/2023 3:00 PM EDT Office Visit [facility] [address] [place] [address] Chani Weinberg, CHILD SUPPORT INVESTIGATOR-JUNIOR NETWORK ADMINISTRATOR [address] [place] [address] [facility] Start: 10-03-2023 MR Prostate WO and W contrast IV [facility] Start: 10-03-2023 MR prostate wo/w con MR prostate wo/w con [facility] Start: 09-04-2023 End: 09-04-2023 Patient encounter procedure 09/04/2023 3:00 PM EDT Office Visit [facility] [address] [place] [address] Chani Weinberg, CHILD SUPPORT INVESTIGATOR-JUNIOR NETWORK ADMINISTRATOR [address] [place] [address] [facility] Start: 05-23-2023 Glaucoma screening Diabetes: Retinopathy Screening [facility] Start: 02-14-2023 Influenza vaccination Influenza Vaccine [facility] Start: 10-11-2022 Urine screening for protein [facility] Start: 10-03-2022 Lipid panel Lipids [facility] Start: 2022 Respiratory Syncytial Virus (RSV) or age 60 yrs+ (1 - 1-dose 60+ series) Respiratory Syncytial Virus (RSV) or age 60 yrs+ (1 - 1-dose 60+ series) [facility]ARR[facility] FERR[facility] Start: 02-14-2022 Influenza vaccination Flu vaccine (Season Ended) [facility] Start: 10-30-2021 End: 10-30-2021 Colonoscopy flx dx w/collj spec when pfrmd COLORECTAL CANCER SCREENING, NOT HIGH RISK SCREEN FOR COLON CANCER 10/30/2021 12:05 PM EDT [facility] Start: 10-30-2021 End: 10-30-2021 Admission to same day surgery center 10/30/2021 Surgery IP Unit Colton Romero MD [address] [address] COLORECTAL CANCER SCREENING, NOT HIGH RISK [facility] Comment on above: COLORECTAL CANCER SCREENING, NOT HIGH RI SK Start: 10-30-2021 End: 10-30-2021 Colonoscopy flx dx w/collj spec when pfrmd COLORECTAL CANCER SCREENING, NOT HIGH RISK SCREEN FOR COLON CANCER 10/30/2021 7:30 AM EDT [facility] Start: 10-30-2021 Subsequent hospital visit by physician 10/30/2021 Hospital Encounter IP Unit Colton Romero MD [address] [address] [facility] Start: 06-19-2021 DTaP/Tdap/Td vaccine (1 - Tdap) DTaP/Tdap/Td vaccine (1 - Tdap) [place] Comment on above: Postponed from 1981 (Patient Refus ed) Start: 06-19-2021 Hepatitis C screen Hepatitis C screen [place] Comment on above: Postponed from 1962 (Patient Refus ed) Start: 06-19-2021 Hepatitis C screening Hepatitis C screen [place] Comment on above: Postponed from 1962 (Patient Refus ed) Start: 06-19-2021 HIV screen HIV screen [place] Comment on above: Postponed from 1977 (Patient Refus ed) Start: 06-19-2021 HIV screening HIV screen [place] Comment on above: Postponed from 1977 (Patient Refus ed) Start: 03-02-2021 COVID-19 Vaccine (3 - Booster for Pfizer series) COVID-19 Vaccine (3 - Booster for Pfizer series) [facility] Start: 02-15-2020 Influenza vaccination Flu vaccine (Season Ended) [place] Start: 02-14-2019 Influenza vaccination Flu vaccine (#1) [place] Start: 08-22-2017 Pneumococcal 0-64 years Vaccine (2 - PPSV23 or PCV20) Pneumococcal 0-64 years Vaccine (2 - PPSV23 or PCV20) [facility] Start: 10-17-2016 Pneumococcal 0-64 years Vaccine (1 of 1 - PPSV23) Pneumococcal 0-64 years Vaccine (1 of 1 - PPSV23) [place] Start: 2012 Administration of varicella zoster vaccine Zoster (Shingles) Vaccine (1 of 2) [facility] Start: 2012 Shingles Vaccine (1 of 2) Shingles Vaccine (1 of 2) [facility] Start: 2007 Screening for malignant neoplasm of colon [facility] Start: 1981 DTaP,Tdap and Td Vaccines (1 - Tdap) DTaP,Tdap and Td Vaccines (1 - Tdap) [facility] Start: 1981 DTaP/Tdap/Td vaccine (1 - Tdap) DTaP/Tdap/Td vaccine (1 - Tdap) [facility] Start: 1981 Hepatitis B vaccine (1 of 3 - Risk 3-dose series) Hepatitis B vaccine (1 of 3 - Risk 3-dose series) [facility] Start: 1980 Diabetic microalbuminuria test Diabetic microalbuminuria test [place] Start: 1980 Diabetic retinal exam Diabetic retinal exam [facility] Start: 1980 Glaucoma screening Diabetic retinal exam [facility] Start: 1980 Hepatitis C screening Hepatitis C screen [facility] Start: 1980 Urine screening for protein Diabetic microalbuminuria test [facility] Start: 1977 HIV screening HIV screen [facility] Start: 1974 Depression Screen Depression Screen [facility] Start: 1974 Depression Screening Depression Screening [facility] Start: 1972 [object Object] Diabetic foot exam [place] Start: 1972 A1C test (Diabetic or Prediabetic) A1C test (Diabetic or Prediabetic) [place] Start: 1972 Diabetic foot examination Diabetic foot exam [facility] Start: 1972 Diabetic retinal exam Diabetic retinal exam [place], [place] Start: 1972 HbA1c (Bld) [Mass fraction] A1C test (Diabetic or Prediabetic) [place] Start: 1972 Hemoglobin A1c measurement A1C test (Diabetic or Prediabetic) [facility] Start: 1972 Lipid panel Lipid screen [place] Start: 1972 Lipid screen Lipid screen [place] Start: 1967 COVID-19 Vaccine (1) COVID-19 Vaccine (1) [facility] Start: 1962 Glaucoma screening Diabetic Ophthalmology Exam [facility] Start: 1962 Screening for malignant neoplasm of colon [facility] Start: 1962 Statin Use: Diabetic Statin Use: Diabetic [facility] End: 10-15-2019 C. difficile toxin Molecular C. difficile toxin Molecular Microbiology Routine Once for 1 Occurrences starting 10/15/2019 until 10/15/2019 [place] Comment on above: Once for 1 Occurrences starting 10/15/19 20 until 10/15/2019 C. difficile toxin Molecular C. difficile toxin Molecular Microbiology Routine 10/15/2019 7:30 AM EDT [place] End: 06-06-2024 CBC W Auto Differential panel - Blood CBC auto differential Lab Routine Diabetes mellitus type 1, controlled, insulin dependent ([facility]) 1 Occurrences starting 06/06/2023 until 06/06/2024 Leevia Work Phone: Comment on above: 1 Occurrences starting 06/06/2023 until 06/06/2024 End: 04-23-2025 CBC W Auto Differential panel - Blood CBC auto differential Lab Routine Diabetes mellitus type 1, controlled, insulin dependent ([facility]) Encounter For Annual Wellness Visit 1 Occurrences starting 04/23/2024 until 04/23/2025 [facility] Work Phone: Comment on above: 1 Occurrences starting 04/23/2024 until 04/23/2025 CBC W Auto Different ial panel - Blood CBC auto differential Lab Routine Diabetes mellitus type 1, controlled, insulin dependent ([facility]) 01/27/2025 2:13 PM EDT [facility] Work Phone: End: 06-06-2024 Comprehensive metabolic 2000 panel - Serum or Plasma Comprehensive metabolic panel Lab Routine Diabetes mellitus type 1, controlled, insulin dependent ([facility]) 1 Occurrences starting 06/06/2023 until 06/06/2024 [facility] Comment on above: 1 Occurrences starting 06/06/2023 until 06/06/2024 End: 04-23-2025 Comprehensive metabolic 2000 panel - Serum or Plasma Comprehensive metabolic panel Lab Routine Diabetes mellitus type 1, controlled, insulin dependent ([facility]) Encounter For Annual Wellness Visit 1 Occurrences starting 04/23/2024 until 04/23/2025 [facility] Comment on above: 1 Occurrences starting 04/23/2024 until 04/23/2025 Comprehensive metabo lic 2000 panel - Serum or Plasma Comprehensive metabolic panel Lab Routine Diabetes mellitus type 1, controlled, insulin dependent ([facility]) 01/27/2025 2:[address] [facility] CT ABDOMEN PELVIS WO CONTRAST Additional Contrast? None CT ABDOMEN PELVIS WO CONTRAST Additional Contrast? None Imaging STAT 09/03/2019 2:52 PM EDT [place] End: 06-06-2024 Ferritin [Mass/volume] in Serum or Plasma Ferritin Lab Routine Diabetes mellitus type 1, controlled, [facility] Occurrences starting 06/06/2023 until 06/06/2024 [facility] [place] [facility] Comment on above: 1 Occurrences starting 06/06/2023 until 06/06/2024 Ferritin [Mass/volum e] in Serum or Plasma Ferritin Lab Routine Diabetes mellitus type 1, controlled, insulin dependent ([facility]) 01/27/2025 2:13 PM EDT [facility] End: 10-15-2019 Gastrointestinal Panel, Molecular Gastrointestinal Panel, Molecular Microbiology Routine Once for 1 Occurrences starting 10/15/2019 until 10/15/2019 [place] Comment on above: Once for 1 Occurrences starting 10/15/19 until 10/15/2019 Gastrointestinal [place], Molecular Gastrointestinal Panel, Molecular Microbiology Routine 10/15/2019 7:30 AM EDT [place] End: 10-15-2019 Giardia / Cryptosporidum antigens Giardia / Cryptosporidum antigens Lab Routine Once for 1 Occurrences starting 10/15/2019 until 10/15/2019 [place] Comment on above: Once for 1 Occurrences starting 10/15/19 20 until 10/15/2019 Giardia / Cryptospor idum antigens Giardia / Cryptosporidum antigens Lab Routine 10/15/2019 7:30 AM EDT [place] End: 04-23-2025 Hemoglobin A1c/Hemoglobin.total in Blood Hemoglobin A1c Lab Routine Diabetes mellitus type 1, controlled, insulin dependent ([facility]) Encounter For Annual Wellness Visit 1 Occurrences starting 04/23/2024 until 04/23/2025 [facility] Comment on above: 1 Occurrences starting 04/23/2024 until 04/23/2025 Hemoglobin A1c/Hemoglobin.total in Blood Hemoglobin A1c Lab Routine Diabetes mellitus type 1, controlled, insulin dependent ([facility]) 01/27/2025 2:13 PM EDT [facility] End: 06-06-2024 Lipid 1996 panel - Serum or Plasma Lipid profile Lab Routine Diabetes mellitus type 1, controlled, insulin dependent [facility] 1 Occurrences starting 06/06/2023 until 06/06/2024 [facility] Comment on above: 1 Occurrences starting 06/06/2023 until 06/06/2024 End: 04-23-2025 Lipid 1996 panel - Serum or Plasma Lipid profile Lab Routine Diabetes mellitus type 1, controlled, insulin dependent ([facility]) Encounter For Annual Wellness Visit 1 Occurrences starting 04/23/2024 until 04/23/2025 [facility] Comment on above: 1 Occurrences starting 04/23/2024 until 04/23/2025 Lipid 1996 panel - S mihai or Plasma Lipid profile Lab Routine Diabetes mellitus type 1, controlled, insulin dependent ([facility]) Mixed hyperlipidemia 01/27/2025 2:13 PM EDT [facility] End: 04-23-2025 Lipoprotein a [Mass/volume] in Serum or Plasma Lipoprotein(a), S Lab Routine Diabetes mellitus type 1, controlled, insulin dependent ([facility]) Encounter For Annual Wellness Visit 1 Occurrences starting 04/23/2024 until 04/23/2025 [facility] Comment on above: 1 Occurrences starting 04/23/2024 until 04/23/2025 End: 06-06-2024 Magnesium [Mass/volume] in Serum or Plasma Magnesium Lab Routine Diabetes mellitus type 1, controlled, insulin dependent ([facility]) 1 Occurrences starting 06/06/2023 until 06/06/2024 [facility] Comment on above: 1 Occurrences starting 06/06/2023 until 06/06/2024 Magnesium [Mass/volu me] in Serum or Plasma Magnesium Lab Routine Diabetes mellitus type 1, controlled, insulin dependent ([facility]) 01/27/2025 2:13 PM EDT [facility] End: 06-06-2024 Microalbumin - Albumin: Creatinine Urine Ratio Microalbumin - Albumin: Creatinine Urine Ratio Lab Routine Diabetes mellitus type 1, controlled, insulin dependent ([facility]) 1 Occurrences starting 06/06/2023 until 06/06/2024 [facility] Comment on above: 1 Occurrences starting 06/06/2023 until 06/06/2024 End: 04-23-2025 Microalbumin - Albumin: Creatinine Urine Ratio Microalbumin - Albumin: Creatinine Urine Ratio Lab Routine Diabetes mellitus type 1, controlled, insulin dependent ([facility]) Encounter For Annual Wellness Visit 1 Occurrences starting 04/23/2024 until 04/23/2025 [facility] Comment on above: 1 Occurrences starting 04/23/2024 until 04/23/2025 Prostatic specific antigen screen Prostatic specific antigen screen Lab Routine Encounter for screening for malignant neoplasm of prostate 01/27/2025 2:13 PM EDT [facility] End: 04-24-2025 Prostatic specific antigen, diagnostic Prostatic specific antigen, diagnostic Lab Routine Prostate cancer screening Encounter For Annual Wellness Visit 1 Occurrences starting 04/23/2024 until 04/24/2025 [facility] Comment on above: 1 Occurrences starting 04/23/2024 until 04/24/2025 End: 06-06-2024 TSH with Reflex TSH with Reflex Lab Routine Diabetes mellitus type 1, controlled, insulin dependent ([facility]) 1 Occurrences starting 06/06/2023 until 06/06/2024 [facility] Comment on above: 1 Occurrences starting 06/06/2023 until 06/06/2024 End: 04-23-2025 TSH with Reflex TSH with Reflex Lab Routine Diabetes mellitus type 1, controlled, insulin dependent ([facility]) Encounter For Annual Wellness Visit 1 Occurrences starting 04/23/2024 until 04/23/2025 [facility] Comment on above: 1 Occurrences starting 04/23/2024 until 04/23/2025 End: 06-06-2024 Vitamin D 25 hydroxy Vitamin D 25 hydroxy Lab Routine Diabetes mellitus type 1, controlled, insulin dependent ([facility]) 1 Occurrences starting 06/06/2023 until 06/06/2024 [facility] Comment on above: 1 Occurrences starting 06/06/2023 until 06/06/2024 Immunizations Immunization Date Immunization Notes Care Provider Fa cility 07-27-2024 Pneumococcal Conjuga te 20-valent Chani Louiemikel CHILD SUPPORT INVESTIGATOR-JUNIOR NETWORK ADMINISTRATOR Work Phone: [facility] 07-27-2024 Immunization, In Clinic,; Translations: [Drug or medicament (substance)] Chani Louiemikel CHILD SUPPORT INVESTIGATOR-JUNIOR NETWORK ADMINISTRATOR Work Phone: [facility] 03-19-2024 influenza, seasonal, injectable, preservative free Chani Louiemikel CHILD SUPPORT INVESTIGATOR-JUNIOR NETWORK ADMINISTRATOR Work Phone: [facility] 03-19-2024 zoster vaccine recombinant Chani Louiemikel CHILD SUPPORT INVESTIGATOR-JUNIOR NETWORK ADMINISTRATOR Work Phone: [facility] 03-19-2024 Immunization, In Clinic,; Translations: [Drug or medicament (substance)] Chani Weinberg CHILD SUPPORT INVESTIGATOR-JUNIOR NETWORK ADMINISTRATOR Work Phone: [facility] 03-19-2024 influenza virus vaccine, unspecified formulation Chani Weinberg CHILD SUPPORT INVESTIGATOR-JUNIOR NETWORK ADMINISTRATOR Work Phone: [facility] 01-30-2024 zoster vaccine recombinant Chani Weinberg CHILD SUPPORT INVESTIGATOR-JUNIOR NETWORK ADMINISTRATOR Work Phone: [facility] 01-30-2024 Immunization, In Clinic,; Translations: [Drug or medicament (substance)] Chani Weinberg CHILD SUPPORT INVESTIGATOR-JUNIOR NETWORK ADMINISTRATOR Work Phone: [facility] 01-30-2024 zoster vaccine, unspecified formulation Chani Weinberg CHILD SUPPORT INVESTIGATOR-JUNIOR NETWORK ADMINISTRATOR Work Phone: [facility] 04-16-2023 influenza virus vaccine, unspecified formulation Kim ORTIZ [facility] 03-16-2021 SARS-CoV-2 (COVID-19 ) Ad26 vaccine, recombinant Kim ORTIZ [facility] 08-14-2020 SARS-CoV-2 (COVID-19 ) Ad26 vaccine, recombinant Kim ORTIZ [facility] 02-28-2020 influenza, injectabl e, quadrivalent, preservative free Chani Weinberg CHILD SUPPORT INVESTIGATOR-JUNIOR NETWORK ADMINISTRATOR Work Phone: [facility] 02-28-2020 influenza virus vaccine, unspecified formulation Chani Weinberg CHILD SUPPORT INVESTIGATOR-JUNIOR NETWORK ADMINISTRATOR Work Phone: [facility] 08-22-2016 pneumococcal conjuga te vaccine, [address] [facility] 03-05-2011 pneumococcal polysaccharide vaccine, 23 valent Chani Weinberg CHILD SUPPORT INVESTIGATOR-JUNIOR NETWORK ADMINISTRATOR Work Phone: [facility] Payers Date Payer Category Payer Self-pay 2023 Unknown [id number] 2020 Unknown GENERIC MCO GENE AMARA MCO [id number] 2020-Present [id number] 2019 Private Health Insurance [id number] 2017 Commercial Managed C are - O [employer] [id number] 2017 Unknown [employer] M MO SUPERMED [id number] 2017-Present [phone] [address] [place] [address] [id number] 2015 Unknown [employer] M [employer] [address] xxxxxxxxxxxx 2015-Present [phone] [address] [place] [address] xxxxxxxxxxxx [id number] 1962 Unknown [id number] 2.16.840.1.721713.3.579.2 .175 1962 Unknown [id number] 2.16.840.1.380658.3.579.2 .593 1962 Unknown [id number] 2.16.840.1.710899.3.579.2 .176 1962 Unknown [id number] 2.16.840.1.145334.3.579.2 .176 1962 Unknown [id number] 2.16.840.1.837177.3.579.2 .176 1962 Unknown [id number] 2.16.840.1.373928.3.579.2 .1286 1962 Unknown [id number] 2.16.840.1.638127.3.579.2 .1286 1962 Unknown [id number] 2.16.840.1.117307.3.579.2 .1259 1962 Unknown [id number] 2.16.840.1.585682.3.579.2 .1259 1962 Unknown [id number] 2.16.840.1.156179.3.579.2 .727 1962 Unknown [id number] 2.16.840.1.734555.3.579.2 .727 1962 Unknown [id number] 2.16.840.1.271804.3.579.2 .1286 1962 Unknown [id number] 2.16.840.1.560881.3.579.2 .1286 1962 Unknown [id number] 2.16.840.1.406954.3.579.2 .1286 1962 Unknown [id number] 2.16.840.1.874132.3.579.2 .1286 1962 Unknown [id number] 2.16.840.1.794669.3.579.2 .1286 1962 Unknown [id number] 2.16.840.1.508980.3.579.2 .1286 1962 Unknown [id number] 2.16.840.1.464598.3.579.2 .1286 1962 Unknown [id number] 2.16.840.1.440844.3.579.2 .1286 1959 Unknown [id number] 1.2.840.348868.1.13.239.2 .[id number] Unknown [id number] 2.16.840.1.276814.3.579.2 .531 Social History Date Type Detail Facility Start: 09-11-2019 End: 07-27-2024 Tobacco smoking status HIIS Never smoker [facility] Start: 09-11-2019 End: 01-27-2025 Alcohol intake Current drinker of alcohol (finding) [place] Start: 09-28-2013 Alcohol Comment occassional [place], [place] Start: 1960 Sex Assigned At Not on file [place] Start: 07-31-2020 End: 07-27-2024 Tobacco use and exposure Never used [facility] Work Phone: Start: 10-08-2021 End: 10-30-2021 Exposure to SARS-CoV-2 (event) Not sure [facility] Work Phone: Start: 1960 Sex Assigned At Male F [facility] Start: 07-26-2020 End: 11-25-2022 History of Social function [employer] Start: 07-26-2020 End: 11-25-2022 Alcohol Use Disorder Identification Test - Consumption [AUDIT-C] [employer] How often to you hav e a drink containing alcohol? Monthly or less [employer] How many standard dr inks containing alcohol do you have on a typical day? 1 or 2 [employer] How often do you hav e 6 or more drinks on 1 occasion? Less than monthly [employer] Read-Only, Retired: Physical Abuse Denies [facility] Start: 09-04-2019 Gender identity Identifies as male gender (finding) [employer] Start: 09-04-2019 Sexual orientation Bisexual (finding ) [facility] Start: 12-25-2022 Alcohol Comment 6+ less than monthly [facility] Start: 07-26-2022 Alcohol Comment Occ. 1-2 on e weekends [facility] Start: 01-17-2015 Sex Male (finding) [facility] Sexual Orientation [facility] NEGATED: Highlighted rowStart: NINF History of tobacco use Passive smoker [facility] Functional Status Date Assessment Result Facility 12-22-2023 Functional Status N/A [facility] Clinical Notes 10-18-2021 to 01-27-2025 DURAN Jin - 01/27/2025 2:00 PM EDTPatient InstructionsDURAN Jin - 12/09/2024 11:30 AM EDTPatient InstructionsDURAN Jin - 10/26/2024 2:00 PM EDT Note Date & Type Note Facility 01-27-2025 History of Present illness Narrative Images from the original note were not included. [facility] [address] [place] [address] OFFICE: FAX: [phone] Patient: Sd Cardozo Date of : 1960 Encounter Date: 01/27/2025 Subjective Chief Complaint Chief Complaint Patient presents with Follow-up History of Present Illness Sd Cardozo is a 64 y.o. male who has a past medical history of Hyperlipidemia, Neuromuscular disorder ([facility]), and Type 1 diabetes ([facility] Sd is an established patient last seen 12/09/2024 for acute same day appointment for non-recurrent acute suppurative otitis media without spontaneous rupture of membrane and otitis interna right ear. Cerumen debris was removed from right ear. He was treated with ear drops and oral Augmentin. Prior to this acute concern, Sd was seen 10/26/2024 for management of Diabetes Mellitus, Type 1 insulin dependent. Overall, Sd monitors and controls the diabetes within good parameters. Last A1c 10/26/2024 was 6.8%, which was the same result obtained 07/27/2024. Sd presents with a chronic cough with phlegm production ongoing for approximately 6 months and elevated blood glucose levels. He describes coughing up phlegm 3-4 times daily, which is sometimes thick and yellowish, and other times clearer. The cough is not associated with shortness of breath or wheezing. Sd denies chest pain or exposure to fumes, chemicals, or welding. He notes that his nose runs frequently due to allergies, for which he takes daily Claritin. Sd reports that his blood glucose levels have been elevated, particularly after meals. He mentions having high blood sugar after eating pizza for lunch today. He is currently taking 17 units of Tresiba insulin daily in the morning but feels he may need to increase the dose to 20 units due to periods of inadequate coverage, especially at night. Sd recently saw his urologist, at [facility] for a prostate check-up. His PSA level has increased from 2.39 a year ago to 3.1 during this recent visit. The urologist plans to recheck in 6 months and may consider a biopsy if levels remain elevated. Sd denies any problems with urination. Sd's medical history includes type 2 diabetes mellitus managed with insulin, benign prostatic hyperplasia followed by urologist, and seasonal allergic rhinitis taking daily Claritin. Current medications include Tresiba insulin 17 units daily in the morning and Claritin daily at breakfast for allergies. In the review of systems, Sd reports chronic cough with yellowish or clear phlegm production and runny nose. He denies fever, chills, fatigue, muscle aches, appetite or weight change, shortness of breath, wheezing, problems with urination, or depression symptoms. Diabetes Mellitus Type I, Follow-up: Patient here for follow-up evaluation of Type 1 diabetes mellitus. The initial diagnosis of diabetes was made in 1999. His clinical course has fluctuated, but has been stable. Insulin dosage review with Sd suggested compliance all of the time. Associated symptoms of hyperglycemia have been none. He is currently taking Meal Time insulin: based on Carbohydrate Count: Novolog 3-5 units units pre-breakfast, Novolog 3-5 units units pre-lunch, Novolog 3-5 units units pre-dinner. 0.5 unit for every 18 g of carbohydrates. Max 3 units Was taking Basaglar insulin twice a day 10 units twice a day and switch in September 2023 to Tresiba Insulin is given by patient. Compliance with blood glucose monitoring: excellent. The patient does perform independently. Rotation of sites for injection: abdominal wall Exercise: daily Meal panning: He is using carbohydrate counting. Blood glucose times and ranges: Check glucose levels minimum 6 times a day. Glucose levels range high when taking oral steroids. Readings fluctuate without a pattern with some hypoglycemia before lunch. Diet has been better. Exercising every day MedicAlert Identification Noted? no Blood pressure: 115-120/70s Trending A1c: 07/2022 - 7.2%; 11/14/2022 - 7.5%; 7.0%; 02/13/2023 7.0%; 06/06/2023 7.2%; 09/04/2023 6.8%; 12/08/2024 7.9%; 01/30/2024 7.2%; 04/23/2024 6.6%; 07/27/2024 6.8%; 10/26/2024 6.8% Glucose level are up and down all day. have good days and than have bad days without doing anything different. [place] is my weakness Diagnosed with diabetes in 1999. Indicates his [...] symptoms were related to Current treatment: 1. INSULIN degludec (Tresiba)100 unit/mL (3 mL) insulin pen, INJECT 17-20 units a day 2. NOVOLOG FLEXPEN 100 unit/mL insulin pen S.Q. 0.5 unit per 15-18 g carbohydrates 3-4 times a day. He covers snacks with 1-2 units. Takes around 3-4 Units in the morning Lunch: 6 to 7 units Supper: 6-7 units Evening: Generally does not take. Depression Little interest or pleasure in doing things: Not at all Feeling down, depressed, or hopeless: Not at all Trouble falling or staying asleep, or sleeping too much: Not at all Feeling tired or having little energy: Not at all Poor appetite or overeating: Not at all Feeling bad about yourself - or that you are a failure or have let yourself or your family down: Not at all Trouble concentrating on things, such as reading the newspaper or watching television: Not at all Moving or speaking so slowly that other people could have noticed. Or the opposite - being so fidgety or restless that you have been moving around a lot more than usual: Not at all Thoughts that you would be better off , or of hurting yourself in some way: Not at all Total Score: 0 If you checked off any problems, how difficult have these problems made it for you to do your work, take care of things at home, or get along with other people?: Not difficult at all Past Medical, Family, Surgery and Social History Past Medical History: Diagnosis Date Hyperlipidemia Neuromuscular disorder ([facility] Type 1 diabetes ([facility]) Past Surgical History: Procedure Laterality Date KIDNEY STONE SURGERY History reviewed. No pertinent family history. Social History Socioeconomic History Marital status: Spouse name: Not on file Number of children: Not on file Years of education: Not on file Highest education level: Not on file Occupational History Not on file Tobacco Use Smoking status: Never Passive exposure: Never Smokeless tobacco: Never Vaping Use Vaping status: Never Used Substance and Sexual Activity Alcohol use: Yes Comment: Occ. 1-2 on the weekends Drug use: Never Sexual activity: Defer Other Topics Concern Not on file Social History Narrative Not on file Social Drivers of Health Financial Resource Strain: Not on file Food Insecurity: No Food Insecurity (01/27/2025) Hunger Screening Food Insecurity - Worry: Never True Food Insecurity - Inability: Never True Transportation Needs: Not on file Physical Activity: Not on file Stress: Not on file Social Connections: Not on file Interpersonal Safety: Unknown (08/07/2023) Re[facility] from [facility] [place] Safety & Environment Fear of Current or Ex-Partner: Not on file Emotionally Abused: Not on file Physically Abused: Not on file Sexually Abused: Not on file Physically or Sexually Abused: Not on file Housing Instability: Not on file Allergies and Current Medications Allergies Allergen Reactions House Dust Current Outpatient Medications Medication Sig Dispense Refill AMBULATORY COMPOUNDED MEDICATION Apply 1 Application topically every 4 (four) hours as needed (neuopathhic pain). 120 g 11 blood-glucose meter,continuous (DEXCOM G6 SENIOR PRODUCT ENGINEER) misc 1 Device by miscellaneous route continuously. 1 each 0 blood-glucose meter,continuous (DEXCOM G7 SENIOR PRODUCT ENGINEER) misc Inject 1 each under the skin every 10 days. blood-glucose sensor (DEXCOM G6 SENSOR) device 1 each by miscellaneous route every 10 days. 10 each 4 blood-glucose transmitter (DEXCOM G6 TRANSMITTER) device 1 Device by miscellaneous route every 3 (three) months. 1 each 4 glucosamine-chondroitin 500-400 mg capsule Take by mouth. insulin degludec (TRESIBA FLEXTOUCH U-100) 100 unit/mL (3 mL) insulin pen 8 units in morning and 5-8 units in evening loratadine (CLARITIN) 10 mg tablet Take 1 tablet (10 mg total) by mouth. MULTIVITAMIN (MULTIPLE VITAMINS ORAL) Take by mouth. NovoLOG Flexpen U-100 Insulin 100 unit/mL (3 mL) insulin pen INJECT 3-7 UNITS UNDER SKIN 4 TIMES A DAY WITH MEALS AND NIGHTLY. CARB COUNTING 1-2 UNITS FOR SNACKS *MAX 30 UNITS PER DAY* 30 mL 4 rosuvastatin (CRESTOR) 5 mg tablet TAKE 1 TABLET (5 MG TOTAL) BY MOUTH IN THE MORNING 90 tablet 1 tiotropium bromide 1.25 mcg/actuation mist Inhale 2.5 mcg in the morning. 2 puffs. 4 g 5 No current facility-administered medications for this visit. Review of Systems Review of Systems Constitutional: Negative for activity change, appetite change, fatigue, fever and unexpected weight change. Respiratory: Negative for cough, shortness of breath and wheezing. Cardiovascular: Negative for chest pain and palpitations. Gastrointestinal: Negative for constipation, diarrhea, nausea and vomiting. Genitourinary: Negative for difficulty urinating. Musculoskeletal: Negative for arthralgias, back pain and myalgias. Neurological: Negative for dizziness, weakness, light-headedness and headaches. Psychiatric/Behavioral: Negative for dysphoric mood and sleep disturbance. Objective: Vital Signs BP 118/76 Pulse 84 Temp 36.4 C (97.6 F) Ht 175.3 cm (5' 9.02 ) Wt 64.8 kg (142 lb 12.8 oz) SpO2 98% BMI 21.08 kg/m Physical Exam Physical Exam Vitals and nursing note reviewed. Constitutional: General: He is not in acute distress. Appearance: Normal appearance. He is well-developed, well-groomed and normal weight. HENT: Head: Normocephalic and atraumatic. Nose: Nose normal. Mouth/Throat: Lips: [place]. Mouth: Mucous membranes are moist. Eyes: General: Lids are normal. Cardiovascular: Rate and Rhythm: Normal rate and regular rhythm. Heart sounds: Normal heart sounds, S1 normal and S2 normal. Pulmonary: Effort: Pulmonary effort is normal. No respiratory distress. Breath sounds: Normal air entry. Examination of the left-middle field reveals rhonchi. Rhonchi present. No decreased breath sounds, wheezing or rales. Comments: Very mild left mid lung rhonchi Abdominal: General: There is no distension. Palpations: Abdomen is soft. Tenderness: There is no abdominal tenderness. Musculoskeletal: General: Normal range of motion. Cervical back: Full passive range of motion without pain and normal range of motion. Skin: General: Skin is warm and dry. Neurological: Mental Status: He is alert and oriented to person, place, and time. Gait: Gait normal. Psychiatric: Attention and Perception: Attention and perception normal. He is attentive. Mood and Affect: Mood and affect normal. Speech: Speech normal. Behavior: Behavior normal. Behavior is cooperative. Thought Content: Thought content normal. Cognition and Memory: Cognition and memory normal. Judgment: Judgment normal. Recent Laboratory Work and Imaging Lab Results Component Value Date WBC 7.1 04/23/2024 HGB 14.3 04/23/2024 HCT 41.3 04/23/2024 MCV 93 04/23/2024 PLT 164 04/23/2024 Lab Results Component Value Date GLU 299 (A) 04/23/2024 CALCIUM 9.6 04/23/2024 K 4.9 04/23/2024 CO2 34 (H) 04/23/2024 CL 101 04/23/2024 BUN 18 04/23/2024 CREATININE 0.93 04/23/2024 Lab Results Component Value Date HGBA1C 6.6 (H) 04/23/2024 Lab Results Component Value Date ALT 25 04/23/2024 AST 25 04/23/2024 ALKPHOS 101 04/23/2024 Assessment and Plan: 1. Diabetes mellitus type 1, controlled, insulin dependent ([facility]) - CBC auto differential - Comprehensive metabolic panel - Lipid profile - Magnesium - Hemoglobin A1c - Ferritin 2. Mixed hyperlipidemia - Lipid profile 3. Encounter for screening for malignant neoplasm of prostate - Prostatic specific antigen screen 4. Recurrent productive cough - X-ray chest 2 views; Future - tiotropium bromide 1.25 mcg/actuation mist; Inhale 2.5 mcg in the morning. 2 puffs. Dispense: 4 g; Refill: 5 5. Encounter for screening for depression Sd Beaver has been screened for clinical depression and the following plan(s) are recommended: patient follow-up to return when and if necessary; time spent on this screening service 1-2 minutes. Depression Screening Total Score: 0 Orders Placed This Encounter Procedures X-ray chest 2 views CBC auto differential Comprehensive metabolic panel Lipid profile Magnesium Hemoglobin A1c Prostatic specific antigen screen Ferritin New Medications Ordered This Visit Medications tiotropium bromide 1.25 mcg/actuation mist Sig: Inhale 2.5 mcg in the morning. 2 puffs. Dispense: 4 g Refill: 5 There are no discontinued medications. DISCUSSION/FOLLOW UP: Persistent Cough Assessment: Sd reports a persistent cough for approximately 6 months, occurring 3-4 times daily. The cough is productive of yellowish or clear phlegm. No associated shortness of breath or wheezing. Patient denies occupational exposure to fumes or chemicals. Lung exam reveals slight crackle on the left side. Differential diagnoses include chronic bronchitis, post-nasal drip from allergies, or mild emphysema. Plan: - Order chest X-ray to rule out underlying pathology - Prescribe Spiriva inhaler, 2 puffs once daily - Instruct on proper inhaler technique - Consider Mucinex (guaifenesin) as needed for mucus thinning - Follow up after chest X-ray results Diabetes Mellitus Assessment: Sd reports current insulin regimen of 17 units Tresiba daily, taken in the morning. Recent HbA1c was 6.8%. Patient notes occasional inadequate coverage, particularly at night, and is considering increasing dose to 20 units. Recent finger-stick glucose was elevated due to pizza consumption. Plan: - Order comprehensive metabolic panel and HbA1c - Continue Tresiba insulin - Patient to self-titrate Tresiba dose up to 20 units daily as needed - Follow up in 3 months or sooner if lab results require Elevated PSA Assessment: Sd's recent PSA level increased from 2.39 a year ago to 3.1. Urologist recommends re-check in 6 months, with consideration for biopsy if elevation persists. No current urinary symptoms reported. Plan: - Follow up with urologist in 6 months as recommended - Order PSA test Hyperlipidemia Assessment: Sd's recent finger-stick cholesterol results: total cholesterol 135 mg/dL, HDL 63 mg/dL. LDL not measured. Last comprehensive lipid panel was in April of the previous year. Plan: - Order comprehensive lipid panel Allergic Rhinitis Assessment: Sd reports chronic runny nose and takes daily Claritin for allergy management. Plan: - Continue Claritin daily Total time spent was 35 minutes: Preparing to see the patient (e.g., review of tests) Performing a medically appropriate examination and/or evaluation [...] identified and corrected by editing. DURAN Jin 01/27/25 1455 documented in this encounter [facility] 01-27-2025 Instructions DURAN Jin - 01/27/2025 2:00 PM EDT Date: January 27, 2025 Dear Sd Cardozo, Thank you for visiting today. It was important to discuss your recent symptoms and develop a comprehensive treatment plan. Here is a summary of the bedoya points from our conversation: Medications: - Increase Tresiba insulin dose from 17 units to 20 units daily in the morning - Start using Spiriva inhaler: 2 puffs once daily in the morning - Wait a few minutes between puffs - Use good breath technique as instructed - Consider [id number] Mucinex to help thin secretions and make coughing easier Tests and Imaging: - Get a chest X-ray at [facility] urgent care across the street on [facility] - Complete blood work, including: - Cholesterol panel - A1c - Urine microalbumin Follow-up: - Return for a follow-up appointment in 3 months - Continue follow-up with your urologist as recommended Please don't hesitate to reach out if you have any questions or if your symptoms worsen. Wishing you a guallpa recovery. Best Regards, DURAN [facility] documented in this encounter [facility] [employer] 01-24-2025 Hospital Discharge instructions Patient Education 01/24/2025 13:50:23 Prostate Cancer Screening Prostate Cancer Screening Prostate cancer screening is testing that is done to check for the presence of prostate cancer in men. The prostate gland is a walnut-sized gland that is located below the bladder and in front of the rectum in males. The function of the prostate is to add fluid to semen during ejaculation. Prostate cancer is one of the most common types of cancer in men. Who should have prostate cancer screening? Screening recommendations vary based on age and other risk factors, as well as between the professional organizations who make the recommendations. In general, screening is recommended if: You are age 50 to 70 and have an average risk for prostate cancer. You should talk with your health care provider about your need for screening and how often screening should be done. Because most prostate cancers are slow growing and will not cause , screening in this age group is generally reserved for men who have a 10- to 15-year life expectancy. You are younger than age 50, and you have these risk factors: ?Having a father, brother, or uncle who has been diagnosed with prostate cancer. The risk is higher if your family member's cancer occurred at an early age or if you have multiple family members with prostate cancer at an early age. ?Being a male who is Black or is of [place] or sub-Saharan descent. In general, screening is not recommended if: You are younger than age 40. You are between the ages of 40 and 49 and you have no risk factors. You are 70 years of age or older. At this age, the risks that screening can cause are greater than the benefits that it may provide. If you are at high risk for prostate cancer, your health care provider may recommend that you have screenings more often or that you start screening at a younger age. How is screening for prostate cancer done? The recommended prostate cancer screening test is a blood test called the prostate-specific antigen (PSA) test. PSA is a protein that is made in the prostate. As you age, your prostate naturally produces more PSA. Abnormally high PSA levels may be caused by: Prostate cancer. An enlarged prostate that is not caused by cancer (benign prostatic hyperplasia, or BPH). This condition is very common in older men. A prostate gland infection (prostatitis) or urinary tract infection. Certain medicines such as male hormones (like testosterone) or other medicines that raise testosterone levels. A rectal exam may be done as part of prostate cancer screening to help provide information about the size of your prostate gland. When a rectal exam is performed, it should be done after the PSA level is drawn to avoid any effect on the results. Depending on the PSA results, you may need more tests, such as: A physical exam to check the size of your prostate gland, if not done as part of screening. Blood and imaging tests. A procedure to remove tissue samples from your prostate gland for testing (biopsy). This is the only way to know for certain if you have prostate cancer. What are the benefits of prostate cancer screening? Screening can help to identify cancer at an early stage, before symptoms start and when the cancer can be treated more easily. There is a small chance that screening may lower your risk of dying from prostate cancer. The chance is small because prostate cancer is a slow-growing cancer, and most men with prostate cancer from a different cause. What are the risks of prostate cancer screening? The main risk of prostate cancer screening is diagnosing and treating prostate cancer that would never have caused any symptoms or problems. This is called overdiagnosisand overtreatment. PSA screening cannot tell you if your PSA is high due to cancer or a different cause. A prostate biopsy is the only procedure to diagnose prostate cancer. Even the results of a biopsy may not tell you if your cancer needs to be treated. Slow-growing prostate cancer may not need any treatment other than monitoring, so diagnosing and treating it may cause unnecessary stress or other side effects. Questions to ask your health care provider When should I start prostate cancer screening? What is my risk for prostate cancer? How often do I need screening? What type of screening tests do I need? How do I get my test results? What do my results mean? Do I need treatment? Where to find more information The [place] [employer]: www.cancer.org [place] [employer]: www.auanet.org Contact a health care provider if: You have difficulty urinating. You have pain when you urinate or ejaculate. You have blood in your urine or semen. You have pain in your back or in the area of your prostate. Summary Prostate cancer is a common type of cancer in men. The prostate gland is located below the bladder and in front of the rectum. This gland adds fluid to semen during ejaculation. Prostate cancer screening may identify cancer at an early stage, when the cancer can be treated more easily and is less likely to have spread to other areas of the body. The prostate-specific antigen (PSA) test is the recommended screening test for prostate cancer, but it has associated risks. Discuss the risks and benefits of prostate cancer screening with your health care provider. If you are age 70 or older, the risks that screening can cause are greater than the benefits that it may provide. This information is not intended to replace advice given to you by your health care provider. Make sure you discuss any questions you have with your health care provider. Document Revised: 11/26/2021 Document Reviewed: 11/26/2021 [employer] Patient Education 2023 [employer]. Follow Up Care 12/22/2023 15:30:50 With:ANGELIQUE LUNDBERG, Kim Mcgowan, URL Address: [address] [place] [phone] When: Unknown Comments:6 mos w/ PSA [facility] 01-24-2025 Note Patient Education Oncology Prostate Cancer Screening Prostate cancer screening is testing that is done to check for the presence of prostate cancer in men. The prostate gland is a walnut-sized gland that is located below the bladder and in front of the rectum in males. The function of the prostate is to add fluid to semen during ejaculation. Prostate cancer is one of the most common types of cancer in men. Who should have prostate cancer screening? Screening recommendations vary based on age and other risk factors, as well as between the professional organizations who make the recommendations. In general, screening is recommended if: ??? You are age 50 to 70 and have an average risk for prostate cancer. You should talk with your health care provider about your need for screening and how often screening should be done. Because most prostate cancers are slow growing and will not cause , screening in this age group is generally reserved for men who have a 10- to 15-year life expectancy. ??? You are younger than age 50, and you have these risk factors: ? Having a father, brother, or uncle who has been diagnosed with prostate cancer. The risk is higher if your family member's cancer occurred at an early age or if you have multiple family members with prostate cancer at an early age. ? Being a male who is Black or is of [place] or sub-Saharan descent. In general, screening is not recommended if: ??? You are younger than age 40. ??? You are between the ages of 40 and 49 and you have no risk factors. ??? You are 70 years of age or older. At this age, the risks that screening can cause are greater than the benefits that it may provide. If you are at high risk for prostate cancer, your health care provider may recommend that you have screenings more often or that you start screening at a younger age. How is screening for prostate cancer done? The recommended prostate cancer screening test is a blood test called the prostate-specific antigen (PSA) test. PSA is a protein that is made in the prostate. As you age, your prostate naturally produces more PSA. Abnormally high PSA levels may be caused by: ??? Prostate cancer. ??? An enlarged prostate that is not caused by cancer (benign prostatic hyperplasia, or BPH). This condition is very common in older men. ??? A prostate gland infection (prostatitis) or urinary tract infection. ??? Certain medicines such as male hormones (like testosterone) or other medicines that raise testosterone levels. A rectal exam may be done as part of prostate cancer screening to help provide information about the size of your prostate gland. When a rectal exam is performed, it should be done after the PSA level is drawn to avoid any effect on the results. Depending on the PSA results, you may need more tests, such as: ??? A physical exam to check the size of your prostate gland, if not done as part of screening. ??? Blood and imaging tests. ??? A procedure to remove tissue samples from your prostate gland for testing (biopsy). This is the only way to know for certain if you have prostate cancer. What are the benefits of prostate cancer screening? Screening can help to identify cancer at an early stage, before symptoms start and when the cancer can be treated more easily. ??? There is a small chance that screening may lower your risk of dying from prostate cancer. The chance is small because prostate cancer is a slow-growing cancer, and most men with prostate cancer from a different cause. What are the risks of prostate cancer screening? The main risk of prostate cancer screening is diagnosing and treating prostate cancer that would never have caused any symptoms or problems. This is called overdiagnosisand overtreatment. PSA screening cannot tell you if your PSA is high due to cancer or a different cause. A prostate biopsy is the only procedure to diagnose prostate cancer. Even the results of a biopsy may not tell you if your cancer needs to be treated. Slow-growing prostate cancer may not need any treatment other than monitoring, so diagnosing and treating it may cause unnecessary stress or other side effects. Questions to ask your health care provider ??? When should I start prostate cancer screening? What is my risk for prostate cancer? How often do I need screening? What type of screening tests do I need? How do I get my test results? What do my results mean? Do I need treatment? Where to find more information ??? The [place] [employer]: www.cancer.org ??? [place] [employer]: www.auanet.org Contact a health care provider if: ??? You have difficulty urinating. ??? You have pain when you urinate or ejaculate. ??? You have blood in your urine or semen. ??? You have pain in your back or in the area of your prostate. Summary ??? Prostate cancer is a common type of cancer in men. The prostate gland (more content not included)... [facility] 12-09-2024 History of Present illness Narrative Images from the original note were not included. [facility] [place] [address] OFFICE: FAX: [phone] Patient: Sd Cardozo Date of : 1960 Encounter Date: 12/09/2024 Subjective Chief Complaint Chief Complaint Patient presents with Earache Rt ear x 2days stabbing pain History of Present Illness Sd Cardozo, 64 y.o. years old, presents to [facility] for an acute/urgent visit with chief complaint Right ear pain with occasional stabbing sensation, feeling of ear blockage History of Present Illness Sd Cardozo presents with right ear pain and a sensation of blockage. He reports experiencing stabbing pain in his right ear that occasionally radiates down into his throat. The patient describes feeling as if his ear is plugged somewhat. Sd mentions that the symptoms have been present for an unspecified duration, but he notes that a couple of weeks ago, he felt a fluid-filled tube in the area behind his ear that would be noticeable when he moved his head in certain ways. This sensation has since subsided. He recently had some ear wax removed from the affected ear. Sd denies any other current sinus issues, sore throat, runny nose, sneezing, or cough. He reports a history of ear problems, particularly on the right side, during his childhood. Sd states that he takes Claritin every morning and uses earplugs when mowing the lawn, but does not use earbuds. 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 Negative for sinus issues, sore throat, runny nose, and sneezing. Past Medical, Family, Surgery and Social History The following portions of the patient's history were reviewed and updated as appropriate: Health Risk Assessment, allergies, past medical history, past surgical history, social history, family history, and immunization history. Allergies and Current Medications Allergies Allergen Reactions House Dust Current Outpatient Medications Medication Sig Dispense Refill AMBULATORY COMPOUNDED MEDICATION Apply 1 Application topically every 4 (four) hours as needed (neuopathhic pain). 120 g 11 blood-glucose meter,continuous (DEXCOM G6 SENIOR PRODUCT ENGINEER) misc 1 Device by miscellaneous route continuously. 1 each 0 blood-glucose meter,continuous (DEXCOM G7 SENIOR PRODUCT ENGINEER) misc Inject 1 each under the skin every 10 days. blood-glucose sensor (DEXCOM G6 SENSOR) device 1 each by miscellaneous route every 10 days. 10 each 4 blood-glucose transmitter (DEXCOM G6 TRANSMITTER) device 1 Device by miscellaneous route every 3 (three) months. 1 each 4 glucosamine-chondroitin 500-400 mg capsule Take by mouth. insulin degludec (TRESIBA FLEXTOUCH U-100) 100 unit/mL (3 mL) insulin pen 8 units in morning and 5-8 units in evening loratadine (CLARITIN) 10 mg tablet Take 1 tablet (10 mg total) by mouth. MULTIVITAMIN (MULTIPLE VITAMINS ORAL) Take by mouth. NovoLOG Flexpen U-100 Insulin 100 unit/mL (3 mL) insulin pen INJECT 3-7 UNITS UNDER SKIN 4 TIMES A DAY WITH MEALS AND NIGHTLY. CARB COUNTING 1-2 UNITS FOR SNACKS *MAX 30 UNITS PER DAY* 30 mL 4 rosuvastatin (CRESTOR) 5 mg tablet TAKE 1 TABLET (5 MG TOTAL) BY MOUTH IN THE MORNING 90 tablet 1 amoxicillin (AMOXIL) 875 mg tablet Take 1 tablet (875 mg total) by mouth every 12 (twelve) hours for 5 days. To 7 days 20 tablet 0 trimethoprim-polymyxin B (POLYTRIM) 10,000 unit- 1 mg/mL drops Administer 1 drop to the right ear in the morning and 1 drop at noon and 1 drop in the evening and 1 drop before bedtime. Do all this for 10 days. 10 mL 0 No current facility-administered medications for this visit. Review of Systems Review of Systems Constitutional: Negative for activity change, fatigue, fever and unexpected weight change. HENT: Positive for ear pain. Negative for congestion, dental problem, nosebleeds, postnasal drip, rhinorrhea, sinus pressure, sinus pain, sneezing, sore throat and tinnitus. Respiratory: Negative for cough, shortness of breath and wheezing. Objective: Vital Signs BP 140/82 Pulse 79 Temp 36.4 C (97.5 F) Ht 175.3 cm (5' 9.02 ) Wt 67.9 kg (149 lb 12.8 oz) SpO2 97% BMI 22.11 kg/m Physical Exam Physical Exam Vitals reviewed. Constitutional: Appearance: Normal appearance. He is well-developed, well-groomed and normal weight. HENT: Head: Normocephalic. Right Ear: External ear normal. Tenderness present. A middle ear effusion is present. There is impacted cerumen. Tympanic membrane is injected, scarred and erythematous. Left Ear: Tympanic membrane, ear canal and external ear normal. No tenderness. No middle ear effusion. There is no impacted cerumen. Tympanic membrane is not injected, scarred or erythematous. Nose: Nose normal. Mouth/Throat: Lips: [place]. Mouth: Mucous membranes are moist. Pulmonary: Effort: No respiratory distress. Skin: General: Skin is warm and dry. Neurological: Mental Status: He is alert and oriented to person, place, and time. Psychiatric: Attention and Perception: Attention and perception normal. Mood and Affect: Mood and affect normal. Speech: Speech normal. Behavior: Behavior normal. Behavior is cooperative. Thought Content: Thought content normal. Cognition and Memory: Cognition and memory normal. Judgment: Judgment normal. Lab Results Component Value Date WBC 7.1 04/23/2024 HGB 14.3 04/23/2024 HCT 41.3 04/23/2024 PLT 164 04/23/2024 CHOL 140 (L) 04/23/2024 TRIG 38 04/23/2024 HDL 67 04/23/2024 ALT 25 04/23/2024 AST 25 04/23/2024 K 4.9 04/23/2024 CL 101 04/23/2024 CREATININE 0.93 04/23/2024 BUN 18 04/23/2024 CO2 34 (H) 04/23/2024 TSH 1.27 04/23/2024 PSA 2.89 04/23/2024 HGBA1C 6.6 (H) 04/23/2024 MICROALBUR <0.7 04/23/2024 Assessment and Plan: Sd Cardozo is a 64 y.o. male who has a past medical history of Hyperlipidemia, Neuromuscular disorder ([facility]), and Type 1 diabetes ([facility]). here with 1. Non-recurrent acute suppurative otitis media of right ear without spontaneous rupture of tympanic membrane 2. Cerumen debris on tympanic membrane of right ear 3. Otitis interna, right Discussion: Sd Cardozo presents with right ear pain and a sensation of blockage, with a history of childhood ear infections primarily affecting the right ear. Right Otitis Media Assessment: Patient reports right ear pain with associated throat discomfort and a sensation of blockage. Examination reveals redness of the tympanic membrane and possible fluid accumulation behind it. There is evidence of scar tissue, likely from childhood ear infections. The patient's history of recurrent right-sided ear infections as a child and the unilateral nature of the current symptoms support the diagnosis of acute otitis media. Differential diagnoses include eustachian tube dysfunction and cerumen impaction, though some cerumen was already removed. Plan: - Prescribe otic drops: Polymyxin B-Trimethoprim ophthalmic solution, 1 drop in right ear QID for up to 10 days - Continue daily Claritin (antihistamine) - Provide prescription for Amoxicillin-Clavulanate 875 mg PO BID for 5-7 days, to be filled and taken only if symptoms worsen or persist for several days - Patient instructed to follow up if symptoms worsen or fail to improve after 3-4 days - Advised on the use of decongestants (e.g., Claritin-D) or Mucinex for additional symptom relief if needed Total time spent was 20 minutes: Performing a medically appropriate examination and/or evaluation [...] identified and corrected by editing. DURAN Jin 12/09/24 1215 documented in this encounter [facility] 12-09-2024 Instructions DURAN Jin - 12/09/2024 11:30 AM EDT Dear Sd Cardozo, Thank you for visiting today. Here is a summary of the bedoya instructions: Medications: - Use ear drops in the right ear: - One drop 4 times a day for up to 10 days - Take amoxicillin only if ear pain continues or worsens: - 875 mg twice a day for 5 to 7 days - Continue taking Claritin (antihistamine) daily Home Care: - Use [id number] decongestants like Claritin-D or Mucinex if needed Follow-up: - Contact the office if ear pain gets worse or lasts more than 3-4 days Please reach out if you have any questions or concerns. Best Regards, DURAN [facility] documented in this encounter [facility] 10-26-2024 History of Present illness Narrative Images from the original note were not included. [facility] [place] [id number] OFFICE: FAX: [phone] Patient: Sd Cardozo Date of : 1960 Encounter Date: 10/26/2024 Subjective Chief Complaint Chief Complaint Patient presents with Diabetes History of Present Illness Sd Cardozo is a 64 y.o. male who has a past medical history of Hyperlipidemia, Neuromuscular disorder ([facility]), and Type 1 diabetes [place] Sd is an established patient last seen in office on 07/27/2024 for management of diabetes mellitus type 1 % controlled insulin dependent and mixed hyperlipidemia. Last A1c was completed in office during visit, with results 6.8%, which has is has been similar to prior results. Sd Cardozo presents for follow-up of his blood glucose management. His primary concerns are fluctuating blood sugar levels, particularly nighttime lows, and intermittent abdominal pain. Mr. Cardozo reports experiencing low blood sugar levels during the night, sometimes dropping to the 50s. He has been adjusting his insulin regimen to address these lows, recently reducing his evening Tresiba dose from 10 units to 5 units, while maintaining 8 units in the morning. Despite these adjustments, he continues to experience nocturnal hypoglycemia. He describes a recent incident where his blood sugar dropped from 92 to 62 within half an hour of going to bed, requiring him to drink orange juice to correct it. The patient also mentions experiencing intermittent pain in his right lower abdominal area. He describes the sensation as feeling like a rubber band being pulled tighter and tighter, lasting for about an hour before resolving. The pain does not seem to be associated with food intake but may be exacerbated by stress or physical exertion. He reports no associated symptoms such as nausea, vomiting, or changes in bowel habits. Mr. Cardozo states that he has been taking his cholesterol medication as prescribed and has recently started taking CoQ10 supplements. He denies any recurrence of the unusual bruise-like spots he had previously experienced. He reports good adherence to his eye exam schedule, with his most recent visit about 3-4 months ago showing no significant issues apart from some floaters. He denies any changes in vision, shortness of breath, cough, wheezing, palpitations, or leg swelling. He reports occasional numbness or tingling in his left toe but no persistent symptoms. The patient mentions that he has been taking beat vitamin daily and has noticed a reduction in his blood pressure, with a recent reading of 118/76 at a fitness center. He remains active and continues to work out regularly. Mr. Cardozo denies any significant sleep issues beyond his usual light sleeping pattern, for which he takes melatonin. Mr. Cardozo's medical history includes Type 1 diabetes mellitus, diagnosed approximately 25 years ago, hyperlipidemia controlled with medication, and hypertension, currently well-controlled. His current medications include Tresiba, NovoLog, atorvastatin, CoQ10 supplement, melatonin, and chewable vitamins. He works out regularly, monitors his carbohydrate intake, and works, getting home from work in the afternoon. The review of systems reveals a persistent rash and discoloration, floaters in vision, intermittent right lower abdominal pain, general body aches, intermittent shooting pain in left toe, and light sleep. He denies fever, chills, fatigue, appetite changes, vision changes, palpitations, leg swelling, shortness of breath, cough, wheezing, urinary frequency and urgency, numbness, tingling, weakness, dizziness, and headaches. Diabetes Mellitus Type I, Follow-up: Patient here for follow-up evaluation of Type 1 diabetes mellitus. The initial diagnosis of diabetes was made in 1999. His clinical course has fluctuated, but has been stable. Insulin dosage review with Sd suggested compliance all of the time. Associated symptoms of hyperglycemia have been none. He is currently taking Meal Time insulin: based on Carbohydrate Count: Novolog 3-5 units units pre-breakfast, Novolog 3-5 units units pre-lunch, Novolog 3-5 units units pre-dinner. 0.5 unit for every 18 g of carbohydrates. Max 3 units Was taking Basaglar insulin twice a day 10 units twice a day and switch in September 2023 to Tresiba Insulin is given by patient. Compliance with blood glucose monitoring: excellent. The patient does perform independently. Rotation of sites for injection: abdominal wall Exercise: daily Meal panning: He is using carbohydrate counting. Blood glucose times and ranges: Check glucose levels minimum 6 times a day. Glucose levels range high when taking oral steroids. Readings fluctuate without a pattern with some hypoglycemia before lunch. Diet has been better. Exercising every day MedicAlert Identification Noted? no Blood pressure: 115-120/70s Trending A1c: 07/2022 - 7.2%; 11/14/2022 - 7.5%; 7.0%; 02/13/2023 7.0%; 06/06/2023 7.2%; 09/04/2023 6.8%; 12/08/2024 7.9%; 01/30/2024 7.2%; 04/23/2024 6.6%; 07/27/2024 6.8% Glucose level are up and down all [...] symptoms were related to Current treatment: 1. INSULIN degludec (Tresiba)100 unit/mL (3 mL) insulin pen, INJECT 7-8 units in morning and 5-6 units in evening UNITS S.Q. twice a day 2. NOVOLOG FLEXPEN 100 unit/mL insulin pen S.Q. 0.5 unit per 15-18 g carbohydrates 3-4 times a day. He covers snacks with 1-2 units. Takes around 3-4 Units in the morning Lunch: 6 to 7 units Supper: 6-7 units Evening: Generally does not take. Past Medical, Family, Surgery and Social History Past Medical History: Diagnosis Date Hyperlipidemia Neuromuscular disorder [place] Type 1 diabetes [place] Past Surgical History: Procedure Laterality Date KIDNEY STONE SURGERY History reviewed. No pertinent family history. Social History Socioeconomic History Marital status: Spouse name: Not on file Number of children: Not on file Years of education: Not on file Highest education level: Not on file Occupational History Not on file Tobacco Use Smoking status: Never Passive exposure: Never Smokeless tobacco: Never Vaping Use Vaping status: Never Used Substance and Sexual Activity Alcohol use: Yes Comment: Occ. 1-2 on the weekends Drug use: Never Sexual activity: Defer Other Topics Concern Not on file Social History Narrative Not on file Social Drivers of Health Financial Resource Strain: Not on file Food Insecurity: No Food Insecurity (10/26/2024) Hunger Screening Food Insecurity - Worry: Never True Food Insecurity - Inability: Never True Transportation Needs: Not on file Physical Activity: Not on file Stress: Not on file Social Connections: Not on file Interpersonal Safety: Unknown (08/07/2023) [facility] from [facility] Safety & Environment Fear of Current or Ex-Partner: Not on file Emotionally Abused: Not on file Physically Abused: Not on file Sexually Abused: Not on file Physically or Sexually Abused: Not on file Housing Instability: Not on file Allergies and Current Medications Allergies Allergen Reactions House Dust Current Outpatient Medications Medication Sig Dispense Refill AMBULATORY COMPOUNDED MEDICATION Apply 1 Application topically every 4 (four) hours as needed (neuopathhic pain). 120 g 11 blood-glucose meter,continuous (DEXCOM G6 SENIOR PRODUCT ENGINEER) misc 1 Device by miscellaneous route continuously. 1 each 0 blood-glucose meter,continuous (DEXCOM G7 SENIOR PRODUCT ENGINEER) misc Inject 1 each under the skin every 10 days. blood-glucose sensor (DEXCOM G6 SENSOR) device 1 each by miscellaneous route every 10 days. 10 each 4 blood-glucose transmitter (DEXCOM G6 TRANSMITTER) device 1 Device by miscellaneous route every 3 (three) months. 1 each 4 glucosamine-chondroitin 500-400 mg capsule Take by mouth. insulin degludec (TRESIBA FLEXTOUCH U-100) 100 unit/mL (3 mL) insulin pen INJECT 14 TO 16 UNITS UNDER THE SKIN IN THE MORNING 15 mL 3 loratadine (CLARITIN) 10 mg tablet Take 1 tablet (10 mg total) by mouth. MULTIVITAMIN (MULTIPLE VITAMINS ORAL) Take by mouth. NovoLOG Flexpen U-100 Insulin 100 unit/mL (3 mL) insulin pen INJECT 3-7 UNITS UNDER SKIN 4 TIMES A DAY WITH MEALS AND NIGHTLY. CARB COUNTING 1-2 UNITS FOR SNACKS *MAX 30 UNITS PER DAY* 30 mL 4 rosuvastatin (CRESTOR) 5 mg tablet TAKE 1 TABLET (5 MG TOTAL) BY MOUTH IN THE MORNING 90 tablet 1 No current facility-administered medications for this visit. Review of Systems Review of Systems Constitutional: Negative for activity change, appetite change, fatigue, fever and unexpected weight change. Eyes: Negative for pain, discharge, itching and visual disturbance. Respiratory: Negative for cough and shortness of breath. Cardiovascular: Negative for chest pain, palpitations and leg swelling. Gastrointestinal: Negative for abdominal pain, constipation, diarrhea, nausea and vomiting. Genitourinary: Negative for difficulty urinating, frequency and urgency. Musculoskeletal: Negative for arthralgias. Skin: Positive for color change (skin discoloration lower legs). Negative for rash. Neurological: Positive for numbness (left toe occassional shooting). Negative for dizziness, weakness, light-headedness and headaches. Psychiatric/Behavioral: Negative for sleep disturbance. Objective: Vital Signs BP 122/80 Pulse 75 Temp 36.2 C (97.1 F) Ht 175.3 cm (5' 9.02 ) Wt 67.9 kg (149 lb 12.8 oz) SpO2 93% BMI 22.11 kg/m Weight 10/26/24 1401 67.9 kg (149 lb 12.8 oz) 07/27/24 1406 69.6 kg (153 lb 6.4 oz) 04/23/24 1359 68.6 kg (151 lb 3.2 oz) 03/19/24 1402 66.4 kg (146 lb 6.4 oz) 02/17/24 1139 67 kg (147 lb 12.8 oz) 01/30/24 1606 67 kg (147 lb 12.8 oz) 12/09/23 1403 68.3 kg (150 lb 9.6 oz) 10/16/23 1500 68.2 kg (150 lb 6.4 oz) 10/06/23 1357 69.6 kg (153 lb 6.4 oz) 09/04/23 1501 70.3 kg (155 lb) 07/10/23 1456 70.9 kg (156 lb 6.4 oz) 06/06/23 1451 69.6 kg (153 lb 6.4 oz) Physical Exam Physical Exam Vitals and nursing note reviewed. Constitutional: General: He is not in acute distress. Appearance: Normal appearance. He is well-developed, well-groomed and normal weight. HENT: Head: Normocephalic and atraumatic. Nose: Nose normal. Mouth/Throat: Lips: Martinez. Mouth: Mucous membranes are moist. Eyes: General: Lids are normal. Cardiovascular: Rate and Rhythm: Normal rate and regular rhythm. Heart sounds: Normal heart sounds, S1 normal and S2 normal. Pulmonary: Effort: Pulmonary effort is normal. No respiratory distress. Breath sounds: Normal breath sounds and air entry. No decreased breath sounds, wheezing, rhonchi or rales. Abdominal: General: There is no distension. Palpations: Abdomen is soft. Tenderness: There is no abdominal tenderness. Musculoskeletal: General: Normal range of motion. Cervical back: Full passive range of motion without pain and normal range of motion. Skin: General: Skin is warm and dry. Findings: Lesion present. Comments: Macular lesion discoloration on left lower diallo, Brown patch runs along anterior aspect of tibular bone. Neurological: Mental Status: He is alert and oriented to person, place, and time. Gait: Gait normal. Psychiatric: Attention and Perception: Attention and perception normal. He is attentive. Mood and Affect: Mood and affect normal. Speech: Speech normal. Behavior: Behavior normal. Behavior is cooperative. Thought Content: Thought content normal. Cognition and Memory: Cognition and memory normal. Judgment: Judgment normal. Recent Laboratory Work and Imaging Lab Results Component Value Date WBC 7.1 04/23/2024 HGB 14.3 04/23/2024 HCT 41.3 04/23/2024 MCV 93 04/23/2024 PLT 164 04/23/2024 Lab Results Component Value Date GLU 299 (A) 04/23/2024 CALCIUM 9.6 04/23/2024 K 4.9 04/23/2024 CO2 34 (H) 04/23/2024 CL 101 04/23/2024 BUN 18 04/23/2024 CREATININE 0.93 04/23/2024 Lab Results Component Value Date HGBA1C 6.6 (H) 04/23/2024 Lab Results Component Value Date ALT 25 04/23/2024 AST 25 04/23/2024 ALKPHOS 101 04/23/2024 Assessment and Plan: 1. Diabetes mellitus type 1, controlled, insulin dependent ([facility]) - POCT Hemoglobin A1c 2. Mixed hyperlipidemia Orders Placed This Encounter Procedures POCT Hemoglobin A1c No orders of the defined types were placed in this encounter. There are no discontinued medications. DISCUSSION/FOLLOW UP: Diabetes Mellitus Type 1 Assessment: Sd Cardozo'tata diabetes management has been challenging with recent episodes of nocturnal hypoglycemia. A1C was 6.8%, consistent with average glucose readings of 7 mmol/L over the past 14 days. Patient reports adjusting Tresiba dosing, currently taking 8 units in the morning and 5 units at night, down from 10 units twice daily. Despite reductions, patient still experiences nocturnal hypoglycemia, sometimes dropping to the 50s mg/dL. Patient uses Novolog with meals, typically 3 units for breakfast and up to 7 units for lunch and dinner, adjusting based on carbohydrate intake. Recent eye exam showed no diabetic retinopathy. Plan: - Trial consolidating Tresiba to single 12-unit dose in the morning - Continue Novolog with meals, adjusting based on carbohydrate intake - Monitor blood glucose levels, especially for nocturnal hypoglycemia - Patient to self-adjust Tresiba dose based on morning blood glucose levels over the next month - Follow up in 3 months to reassess diabetes management - Maintain regular eye exams for diabetic retinopathy screening Intermittent Right Lower Quadrant Abdominal Pain Assessment: Patient reports intermittent pain in the right lower quadrant, described as a tightening sensation. Pain is not associated with food intake but may be exacerbated by stress. No associated gastrointestinal symptoms reported. Differential diagnoses include muscle strain, possible mild hernia, or gastrointestinal tract irritation. Plan: - Patient to follow up with cracker sprayer for further evaluation - Monitor symptoms and report any changes or worsening Hyperlipidemia Assessment: Patient is on statin therapy. Recent lipid panel shows excellent control with LDL 65 mg/dL, total cholesterol 140 mg/dL, triglycerides 38 mg/dL, and HDL 67 mg/dL. Non-HDL cholesterol is 73 mg/dL, well below the target of 130 mg/dL. Lipoprotein A was low, indicating no genetic predisposition for hypercholesterolemia. Plan: - Continue current statin therapy - Maintain healthy diet and regular physical activity - Recheck lipid panel at next follow-up visit Hypertension Assessment: Patient reports improved blood pressure control with recent reading of 118/76 mmHg at a fitness center. Currently taking two chewable tablets daily of an unspecified medication, likely an [id number] supplement. Plan: - Continue current blood pressure management regimen - Monitor blood pressure regularly Skin Discoloration Assessment: Patient reports persistent skin discoloration and rash. Previous physician attributed this to a normal skin reaction in diabetics. No associated symptoms or functional impairment reported. Plan: - Continue current management with topical vitamin E application - Monitor for any changes or new symptoms Total time spent was 35 minutes: Preparing to see the patient (e.g., review of tests) Performing a medically appropriate examination and/or evaluation [...] identified and corrected by editing. DURAN Jin 10/26/24 1511 documented in this encounter [facility] 10-26-2024 Instructions DURAN Jin - 10/26/2024 2:00 PM EDT Date: FriOct 26 2024 Dear Sd Cardozo, Thank you for visiting today. It was great to discuss your current treatment and make plans for continued health management. Here is a summary of the bedoya points from our conversation: - Medications: - Take Tresiba insulin 12 units once daily in the morning when you wake up. - Continue taking cholesterol medicine as prescribed. - Continue taking CoQ10 supplement. - Insulin Management: - Monitor blood sugar levels closely. - Aim for blood sugar levels around 150, avoiding highs in the 200s. - Take NovoLog insulin with meals based on carb intake. - Follow-up: - See your cracker sprayer as scheduled. - Eye Care: - Get a release of records from [facility] for your recent eye exam. - Lifestyle: - Continue staying active and exercising. - Monitoring: - Keep track of any unusual symptoms, especially abdominal pain on the right side. - Monitor for any vision changes or new floaters. Please reach out if you have any questions or concerns. Best Regards, DURAN [facility] documented in this encounter [facility] 07-27-2024 History of Present illness Narrative Images from the original note were not included. [facility] [place] [id number] OFFICE: FAX: [phone] Patient: Sd Cardozo Date of : 1960 Encounter Date: 07/27/2024 Subjective Chief Complaint Chief Complaint Patient presents with Follow-up History of Present Illness Sd Cardozo is a 64 y.o. male who has a past medical history of Hyperlipidemia, Neuromuscular disorder ([facility]), and Type 1 diabetes [place] Sd presents today as an established patient last seen in office on 04/23/2024 for management of diabetes and cholesterol associated with diabetes. Sd is a type 1 DM, very well controlled. His A1c in April was 6.6%. Sd reports generally stable diabetes management with Type 1 Diabetes for 25 years, maintaining good A1C levels. He takes insulin according to a scale, with 8 units in the morning and 10 units at night, totaling 18 units daily. On the day of the visit, he experienced unusual hypoglycemic episodes, with blood glucose dropping to 60-70 mg/dL three times before 10 AM, despite maintaining his usual diet and insulin regimen. These episodes required multiple interventions with candy bars to correct. Sd mentions his blood pressure was 140 mmHg systolic at today's visit and has noticed a gradual increase over the past year, previously consistently in the 120s mmHg systolic range. He attributes this to aging and dietary factors. Sd denies any numbness or pain in his feet, except for occasional tingling when blood glucose is elevated around 300 mg/dL, which resolves when glucose levels normalize. He reports cold feet occasionally but no significant impact from cold weather. Sd has received vaccinations, including for pneumonia and shingles. However according to guidelines it is recommend to receive either Prevnar 20 or Prevnar 21. Diabetic foot exam: Visual exam was normal without lesions. Left: Pulses Dorsalis Pedis: present Posterior Tibial: present Filament test present 10 of 10 sites evaluated Right: Pulses Dorsalis Pedis: present Posterior Tibial: present Filament test present 10 of 10 sites evaluated Past Medical, Family, Surgery and Social History Past Medical History: Diagnosis Date Hyperlipidemia Neuromuscular disorder ([facility]) Type 1 diabetes [place] Past Surgical History: Procedure Laterality Date KIDNEY STONE SURGERY History reviewed. No pertinent family history. Social History Socioeconomic History Marital status: Spouse name: Not on file Number of children: Not on file Years of education: Not on file Highest education level: Not on file Occupational History Not on file Tobacco Use Smoking status: Never Passive exposure: Never Smokeless tobacco: Never Vaping Use Vaping status: Never Used Substance and Sexual Activity Alcohol use: Yes Comment: Occ. 1-2 on the weekends Drug use: Never Sexual activity: Defer Other Topics Concern Not on file Social History Narrative Not on file Social Drivers of Health Financial Resource Strain: Not on file Food Insecurity: No Food Insecurity (07/27/2024) Hunger Screening Food Insecurity - Worry: Never True Food Insecurity - Inability: Never True Transportation Needs: Not on file Physical Activity: Not on file Stress: Not on file Social Connections: Not on file Interpersonal Safety: Unknown (08/07/2023) [facility] [place] Safety & Environment Fear of Current or Ex-Partner: Not on file Emotionally Abused: Not on file Physically Abused: Not on file Sexually Abused: Not on file Physically or Sexually Abused: Not on file Housing Instability: Not on file Allergies and Current Medications Allergies Allergen Reactions House Dust Current Outpatient Medications Medication Sig Dispense Refill AMBULATORY COMPOUNDED MEDICATION Apply 1 Application topically every 4 (four) hours as needed (neuopathhic pain). 120 g 11 blood-glucose meter,continuous (DEXCOM G6 SENIOR PRODUCT ENGINEER) misc 1 Device by miscellaneous route continuously. 1 each 0 blood-glucose meter,continuous (DEXCOM G7 SENIOR PRODUCT ENGINEER) misc Inject 1 each under the skin every 10 days. blood-glucose sensor (DEXCOM G6 SENSOR) device 1 each by miscellaneous route every 10 days. 10 each 4 blood-glucose transmitter (DEXCOM G6 TRANSMITTER) device 1 Device by miscellaneous route every 3 (three) months. 1 each 4 glucosamine-chondroitin 500-400 mg capsule Take by mouth. insulin degludec (TRESIBA U-100 INSULIN) 100 unit/mL solution Inject 14-16 Unit under the skin in the morning. 30 mL 1 loratadine (CLARITIN) 10 mg tablet Take 1 tablet (10 mg total) by mouth. MULTIVITAMIN (MULTIPLE VITAMINS ORAL) Take by mouth. NovoLOG Flexpen U-100 Insulin 100 unit/mL (3 mL) insulin pen INJECT 3-7 UNITS UNDER SKIN 4 TIMES A DAY WITH MEALS AND NIGHTLY. CARB COUNTING 1-2 UNITS FOR SNACKS *MAX 30 UNITS PER DAY* 30 mL 4 rosuvastatin (CRESTOR) 5 mg tablet Take 1 tablet (5 mg total) by mouth in the morning. 90 tablet 1 Immunization, In Clinic, Inject 0.5 mL into the appropriate muscle once for 1 dose. Pneumococcal Conjugate 20-Valent. Sign this order to satisfy the OSBOP Positive ID requirements for immunization orders. No current facility-administered medications for this visit. Review of Systems Review of Systems Constitutional: Negative for activity change, appetite change, fatigue, fever and unexpected weight change. Eyes: Negative for visual disturbance. Respiratory: Negative for cough and shortness of breath. Cardiovascular: Negative for chest pain, palpitations and leg swelling. Gastrointestinal: Negative for constipation, diarrhea, nausea and vomiting. Genitourinary: Negative for difficulty urinating, frequency and urgency. Musculoskeletal: Negative for back pain. Neurological: Positive for numbness (only when glucose levels go up). Negative for dizziness, weakness, light-headedness and headaches. Psychiatric/Behavioral: Negative for dysphoric mood and sleep disturbance. The patient is not nervous/anxious. Objective: Vital Signs BP 140/84 Pulse 73 Temp 36.7 C (98.1 F) Ht 175.3 cm (5' 9.02 ) Wt 69.6 kg (153 lb 6.4 oz) SpO2 98% BMI 22.64 kg/m Physical Exam Physical Exam Vitals reviewed. Constitutional: Appearance: Normal appearance. He is well-developed, well-groomed and normal weight. HENT: Head: Normocephalic. Nose: Nose normal. Mouth/Throat: Lips: [place]. Mouth: Mucous membranes are moist. Cardiovascular: Pulses: Dorsalis pedis pulses are 2+ on the right side and 2+ on the left side. Posterior tibial pulses are 2+ on the right side and 2+ on the left side. Pulmonary: Effort: No respiratory distress. Musculoskeletal: Cervical back: Normal range of motion. Feet: Right foot: Protective Sensation: 10 sites tested. 10 sites sensed. Skin integrity: Skin integrity normal. Toenail Condition: Right toenails are normal. Left foot: Protective Sensation: 10 sites tested. 10 sites sensed. Skin integrity: Skin integrity normal. Toenail Condition: Left toenails are normal. Neurological: Mental Status: He is alert [...] Imaging Lab Results Component Value Date WBC 7.1 04/23/2024 HGB 14.3 04/23/2024 HCT 41.3 04/23/2024 MCV 93 04/23/2024 PLT 164 04/23/2024 Lab Results Component Value Date GLU 299 (A) 04/23/2024 CALCIUM 9.6 04/23/2024 K 4.9 04/23/2024 CO2 34 (H) 04/23/2024 CL 101 04/23/2024 BUN 18 04/23/2024 CREATININE 0.93 04/23/2024 Lab Results Component Value Date HGBA1C 6.6 (H) 04/23/2024 Lab Results Component Value Date ALT 25 04/23/2024 AST 25 04/23/2024 ALKPHOS 101 04/23/2024 Assessment and Plan: 1. Diabetes mellitus type 1, controlled, insulin dependent ([facility]) - DIABETES FOOT EXAM - POCT Hemoglobin A1c 2. Mixed hyperlipidemia 3. Need for pneumococcal 20-valent conjugate vaccination - Pneumococcal Conjugate 20-Valent - Immunization, In Clinic,; Inject 0.5 mL into the appropriate muscle once for 1 dose. Pneumococcal Conjugate 20-Valent. Sign this order to satisfy the OSBOP Positive ID requirements for immunization orders. Orders Placed This Encounter Procedures Pneumococcal Conjugate 20-Valent POCT Hemoglobin A1c DIABETES FOOT EXAM No orders of the defined types were placed in this encounter. There are no discontinued medications. DISCUSSION/FOLLOW UP: Type 1 Diabetes Mellitus Assessment: Sd's HbA1c is 6.8%, slightly increased from 6.6% previously but still well-controlled. Current Novalog insulin regimen includes 8 units in the morning and 10 units at 6 PM. He takes Tresiba U-100 8 in morning and 10 in evening to total around 18 units daily. Sd experienced unexplained hypoglycemic episodes (60-70 mg/dL) on the day of the visit despite no changes in diet or activity. No symptoms of diabetic neuropathy reported, with normal foot exam findings. Kidney function is well-preserved with a GFR greater than 90 and no microalbuminuria. Sd has been diabetic for 25 years and has maintained good A1C control, with no significant numbness or tingling. Plan: - Continue current insulin regimen - Monitor for recurrent hypoglycemic episodes - Maintain regular blood glucose monitoring - Follow up in 3 months Hypertension Assessment: Blood pressure measured at 140/unspecified during the visit, which is higher than Sd's usual readings in the 120s. Given Sd's age and diabetic status, the goal is to maintain blood pressure below 130/80 mmHg. Current management does not include antihypertensive medications. Plan: - Recommend limiting salt intake - Monitor blood pressure at home - Consider initiating KARENA inhibitor or ARB (e.g., losartan or lisinopril) if consistently elevated or if microalbumin increases Hyperlipidemia Assessment: Sd is currently taking rosuvastatin for cholesterol management. No recent lipid panel results discussed. Plan: - Continue rosuvastatin as prescribed Immunization Status Assessment: Sd is up to date on influenza, COVID-19, and shingles vaccines. Due for pneumococcal vaccine update. Plan: - Administer Prevnar 20 vaccine during visit - Educate on potential side effects including pain at injection site, fever, and chills Total time spent was 40 minutes: Preparing to see the patient (e.g., review of tests) Performing a medically appropriate examination and/or evaluation Counseling and educating the patient/family/caregiver Ordering medications, tests, or procedures Documenting clinical information in the electronic or other health record Chani Weinberg APRN-JUNIOR NETWORK ADMINISTRATOR This note was created with the assistance of a speech-recognition program. Although the intention is to generate a document that actually reflects the content of the visit, no guarantees can be provided that every mistake has been identified and corrected by editing. DURAN Jin 07/27/24 1615 documented in this encounter [facility] 07-27-2024 Instructions DURAN Jin - 07/27/2024 2:00 PM EST Date: FriJul 27 2024 Dear Sd Cardozo, Thank you for visiting us today. We appreciate Sd's commitment to managing his health and are pleased to see Sd's ongoing efforts in monitoring and adjusting his diabetes treatment. Here's a summary of the bedoya points from our conversation: - Medication Management: - Continue your current insulin regimen: 8 units of long-acting insulin in the morning and 10 units at night. - Monitor your blood sugar levels closely, especially on days with unusual fluctuations, such as low blood sugars before 10 AM despite your usual routine. - Be aware that it has been taking longer for your blood sugar levels to decrease over the past six months. - Blood Pressure Management: - Aim to keep your blood pressure below 130/80 mmHg. - Consider reducing salt intake to help manage your blood pressure. - Foot Health: - Maintain good foot health and continue regular checks for any numbness or pain. - Laboratory Tests and Health Monitoring: - Recent labs show well-controlled kidney function and no significant microvascular damage. - Continue to stay hydrated and avoid NSAIDs. - Vaccinations: - You received your Prevnar 20 vaccine today. Monitor for any side effects like fever or chills. - You have received both doses of the shingles vaccine. - Eye Health: - You are up to date on eye exams. - Follow-Up Appointment: - Schedule a follow-up in 3 months or sooner if you have any concerns or changes in your condition. We are here to support you in your health journey. If you have any questions or need further assistance before your next appointment, please do not hesitate to contact our office. Best regards, DURAN [facility] documented in this encounter [facility] 05-31-2024 History of Present illness Narrative Images from the original note were not included. Sd Cardozo is a 64 y.o. male presents with chief complaint of Earache (One week ear ache right ear, painful to touch and feels like theres fluid behind it) HPI: Patient presents with complaints of right ear pain. It has been going on for about a week. He has a history of allergies and has had some allergic rhinitis. He appears to have impacted right cerumen and we will start Debrox at this time. If the pain continues he will come in for ear flushing later this week. Earache Associated symptoms include rhinorrhea. SUBJECTIVE: MEDICATIONS: Current Outpatient Medications Medication Instructions aspirin 81 mg, Daily RT Basaglar KwikPen 10 Units, 2 times daily Continuous Blood Gluc Sensor (Dexcom G6 Sensor) misc No dose, route, or frequency recorded. fluticasone (Flonase) 50 MCG/ACT nasal spray 1 spray, Every 24 hours Glucosamine-Chondroitin 500-400 MG capsule 1 capsule, Daily Insulin Lispro (HUMALOG PEN SC) 3 times daily with meals loratadine (Claritin) 10 MG tablet 1 tablet, Daily meclizine (ANTIVERT) 25 mg, 3 times daily PRN NovoLOG FLEXPEN 100 UNIT/ML pen PLEASE SEE ATTACHED FOR DETAILED DIRECTIONS ondansetron (ZOFRAN) 4 mg, Oral, Nightly therapeutic multivitamin-minerals (Theragran-M) tablet 1 tablet, Daily Tresiba FlexTouch 100 UNIT/ML injection INJECT 14 TO 16 UNITS UNDER THE SKIN IN THE MORNING ALLERGIES: Allergies Allergen Reactions Dust Mite Extract REVIEW OF SYMPTOMS: Review of Systems Constitutional: Negative. HENT: Positive for ear pain and rhinorrhea. Eyes: Negative. Respiratory: Negative. Cardiovascular: Negative. Gastrointestinal: Negative. Genitourinary: Negative. Musculoskeletal: Negative. Skin: Negative. Neurological: Negative. Psychiatric/Behavioral: Negative. All other systems reviewed and are negative. Hematological: Negative. Endocrine: Negative. Allergic/Immunologic: Negative. OBJECTIVE: Visit Vitals BP 134/84 (BP Location: Left arm, Patient Position: Sitting, BP Cuff Size: Adult) Pulse 61 Temp 97.7 F Ht 5' 10 Wt 150 lb SpO2 99% BMI 21.52 kg/m Smoking Status Never BSA 1.83 m Physical Exam Vitals and nursing note reviewed. Constitutional: Appearance: Normal appearance. HENT: Head: Normocephalic and atraumatic. Right Ear: Tympanic membrane, ear canal and external ear normal. There is impacted cerumen. Left Ear: Tympanic membrane, ear canal and external ear normal. Nose: Nose normal. Mouth/Throat: Mouth: Mucous membranes are moist. Pharynx: Oropharynx is clear. Eyes: Extraocular Movements: Extraocular movements intact. Conjunctiva/sclera: Conjunctivae normal. Cardiovascular: Rate and Rhythm: Normal rate and regular rhythm. Pulses: Normal pulses. Heart sounds: Normal heart sounds. Pulmonary: Effort: Pulmonary effort is normal. Breath sounds: Normal breath sounds. Abdominal: General: Abdomen is flat. Bowel sounds are normal. Palpations: Abdomen is soft. Musculoskeletal: General: Normal range of motion. Cervical back: Normal range of motion and neck supple. Skin: General: Skin is warm and dry. Capillary Refill: Capillary refill takes less than 2 seconds. Neurological: General: No focal deficit present. Mental Status: He is alert and oriented to person, place, and time. Psychiatric: Mood and Affect: Mood normal. Behavior: Behavior normal. Thought Content: Thought content normal. Judgment: Judgment normal. ASSESSMENT AND PLAN: Assessment/Plan Diagnoses and all orders for this visit: Impacted cerumen, right ear Diabetes mellitus type 1, controlled, insulin dependent (CMS/HCC) Acute ear pain, right Chronic sinusitis, unspecified location Follow up in about 4 days (around 06/04/2024). documented in this encounter [facility] 04-23-2024 History of Present illness Narrative Images from the original note were not included. [facility] [email or web address] [address] [place] [address] OFFICE: FAX: [phone] Patient: Sd Cardozo Date of : 1960 Encounter Date: 04/23/2024 Subjective Chief Complaint Chief Complaint Patient presents with Annual Exam History of Present Illness Sd Cardozo is a 63 y.o. male who has a past medical history of Hyperlipidemia, Neuromuscular disorder (CMS-HCC), and Type 1 diabetes (CMS-HCC). Health Maintenance: DEXA scan: Not applicable CV Risk Assessment: LDL goal is under 80 diabetic ASA for primary/secondary prevention CV disease: Not applicable Colon Cancer screening: UTD 10/30/2021 Next screening colonoscopy: 10 years Breast cancer screening: Not applicable Prostrate Cancer screening: yearly screening ordered today Cervical Cancer screening: Not applicable Lung Cancer screening no Hepatitis C Screening: UTD Last Eye Exam: UTD Last Dental Visit: UTD Exercising regularly? Yes Vaccines: Immunization History Administered Date(s) Administered COVID-19, mRNA, LNP-S, PF, 100mcg/0.5mL Dose 06/03/2021 COVID-19, mRNA, LNP-S, PF, 30mcg/0.3mL Dose 09/09/2020, 09/30/2020 Covid-19, Mrna, Lnp-s, Pf,remy-sucrose,30 Mcg/0.3ml Fall23 05/30/2023 Influenza (IM) Preservative Free 03/19/2024 Influenza, Injectable, quadrivalent (PF) 02/28/2020 Pneumococcal Conjugate 13-Valent 08/22/2016 Pneumococcal Polysaccharide 03/05/2011 Zoster Vaccine Recombinant 01/30/2024, 03/19/2024 Sd reports that his glucose levels have been high recently, with a reading of almost 300 today despite taking insulin. He mentions that his constant glucose monitor, the Dexcom 7, sometimes shows significant fluctuations within minutes and can be 20 points off compared to his other meter. He also reports that his glucose monitor often reads lower than finger sticks. Sd has experienced several nosebleeds in the last couple of weeks, with the first one being heavy and taking about 20 minutes to stop. He has been using nasal saline and a gel to alleviate the dryness. He has not experienced any changes in smell after cauterization, sinus pressure, dizziness, or significant headaches. Sd mentions that he has seasonal allergies that worsen when the furnace is on, and Afrin helps with his nosebleeds. He has no issues with chest pain, palpitations, bowel or bladder issues, constipation, diarrhea, nausea, vomiting, headaches, long-term body aches, skin issues, or concerning moles. He sleeps well, usually 7 hours a night, and feels rested most days. He denies depression, hopelessness, concentration issues, mood problems, or anxiety. Sd reports occasional pain in his abdomen, which he believes is muscle-related and comes and goes like a cramp. The pain is not unbearable, just annoying, and rates it as a 5 or 6 on a scale of one to ten. Sd mentions that he recently had an eye exam about 3 weeks ago, with no issues reported. He has a few floaters, which the doctor said was normal. His last dental check-up was 4-5 months ago, with no issues reported. He has been using a neuropathy medication recommended by the provider, which seems to be helping. Sd also reports that he's been splitting his insulin dose, taking it at 6 AM and 6 PM, to better manage his glucose levels. Sd confirms taking insulin and a neuropathy medication. He reports using nasal saline, a gel, and Afrin for nosebleeds and seasonal allergies. The patient denies any issues with chest pain, palpitations, bowel or bladder problems, constipation, diarrhea, nausea, vomiting, headaches, long-term body aches, skin issues, depression, anxiety, or concentration problems. Past Medical, Family, Surgery and Social History Past Medical History: Diagnosis Date Hyperlipidemia Neuromuscular disorder ([facility]) Type 1 [place] Past Surgical History: Procedure Laterality Date KIDNEY STONE SURGERY History reviewed. No pertinent family history. Social History Socioeconomic History Marital status: Spouse name: Not on file Number of children: Not on file Years of education: Not on file Highest education level: Not on file Occupational History Not on file Tobacco Use Smoking status: Never Smokeless tobacco: Never Vaping Use Vaping status: Never Used Substance and Sexual Activity Alcohol use: Yes Comment: Occ. 1-2 on the weekends Drug use: Never Sexual activity: Defer Other Topics Concern Not on file Social History Narrative Not on file Social Drivers of Health Financial Resource Strain: Not on file Food Insecurity: No Food Insecurity (04/23/2024) Hunger Screening Food Insecurity - Worry: Never True Food Insecurity - Inability: Never True Transportation Needs: Not on file Physical Activity: Not on file Stress: Not on file Social Connections: Not on file Interpersonal Safety: Unknown (08/07/2023) [facility] [place] Safety & Environment Fear of Current or Ex-Partner: Not on file Emotionally Abused: Not on file Physically Abused: Not on file Sexually Abused: Not on file Physically or Sexually Abused: Not on file Housing Instability: Not on file Allergies and Current Medications Allergies Allergen Reactions House Dust Current Outpatient Medications Medication Sig Dispense Refill AMBULATORY COMPOUNDED MEDICATION Apply 1 Application topically every 4 (four) hours as needed (neuopathhic pain). 120 g 11 blood-glucose meter,continuous (DEXCOM G6 SENIOR PRODUCT ENGINEER) misc 1 Device by miscellaneous route continuously. 1 each 0 blood-glucose meter,continuous (DEXCOM G7 SENIOR PRODUCT ENGINEER) misc Inject 1 each under the skin every 10 days. blood-glucose sensor (DEXCOM G6 SENSOR) device 1 each by miscellaneous route every 10 days. 10 each 4 blood-glucose transmitter (DEXCOM G6 TRANSMITTER) device 1 Device by miscellaneous route every 3 (three) months. 1 each 4 glucosamine-chondroitin 500-400 mg capsule Take by mouth. insulin degludec (TRESIBA U-100 INSULIN) 100 unit/mL solution Inject 14-16 Unit under the skin in the morning. 30 mL 1 loratadine (CLARITIN) 10 mg tablet Take 1 tablet (10 mg total) by mouth. MULTIVITAMIN (MULTIPLE VITAMINS ORAL) Take by mouth. NovoLOG FlexPen U-100 Insulin 100 unit/mL (3 mL) insulin pen INJECT 3-7 UNITS UNDER THE SKIN 4 (FOUR) TIMES A DAY WITH MEALS AND NIGHTLY. CARB COUNTING 1-2 UNITS FOR SNACKS. MAX 30 UNITS PER DAY 30 mL 4 rosuvastatin (CRESTOR) 5 mg tablet Take 1 tablet (5 mg total) by mouth in the morning. 90 tablet 1 No current facility-administered medications for this visit. Review of Systems Review of Systems Constitutional: Negative for activity change, appetite change, fatigue, fever and unexpected weight change. HENT: Negative for congestion, ear pain, postnasal drip, rhinorrhea, sinus pressure, sinus pain, sneezing, sore throat and tinnitus. Eyes: Negative for pain, discharge, redness, itching and visual disturbance. Respiratory: Negative for cough, shortness of breath and wheezing. Cardiovascular: Negative for chest pain, palpitations and leg swelling. Gastrointestinal: Negative for abdominal pain, constipation, diarrhea, nausea and vomiting. Genitourinary: Negative for difficulty urinating, dysuria, frequency and urgency. Musculoskeletal: Negative for arthralgias, gait problem, myalgias, neck pain and neck stiffness. Skin: Negative for color change and wound. Neurological: Negative for dizziness, weakness, light-headedness, numbness and headaches. Psychiatric/Behavioral: Negative for dysphoric mood, sleep disturbance and suicidal ideas. The patient is not nervous/anxious. Objective: Vital Signs BP 130/84 Pulse 84 Temp 36.8 C (98.2 F) Ht 175.3 cm (5' 9.02 ) Wt 68.6 kg (151 lb 3.2 oz) SpO2 99% BMI 22.32 kg/m Physical Exam Physical Exam Vitals and nursing note reviewed. Constitutional: General: He is not in acute distress. Appearance: Normal appearance. He is well-developed, well-groomed and normal weight. HENT: Head: Normocephalic and atraumatic. Right Ear: Tympanic membrane, ear canal and external ear normal. Left Ear: Tympanic membrane, ear canal and external ear normal. Nose: Nose normal. No mucosal edema or rhinorrhea. Mouth/Throat: Pharynx: Uvula midline. Eyes: General: Lids are normal. Pupils: Pupils are equal, round, and reactive to light. Neck: Vascular: No carotid bruit. Trachea: Trachea normal. Cardiovascular: Rate and Rhythm: Normal rate and regular rhythm. Pulses: Radial pulses are 2+ on the right side and 2+ on the left side. Heart sounds: Normal heart sounds, S1 normal and S2 normal. Pulmonary: Effort: Pulmonary effort is normal. No respiratory distress. Breath sounds: Normal breath sounds. No decreased breath sounds, wheezing, rhonchi or rales. Abdominal: General: There is no distension. Palpations: Abdomen is soft. Tenderness: There is no abdominal tenderness. Musculoskeletal: General: Normal range of motion. Cervical back: Full passive range of motion without pain and normal range of motion. Normal range of motion. Skin: General: Skin is warm and dry. Findings: No rash. Neurological: Mental Status: He is alert and oriented to person, place, and time. Gait: Gait normal. Psychiatric: Attention and Perception: Attention and perception [...] Diabetes mellitus type 1, controlled, insulin dependent ([facility]) - CBC auto differential; Future - Comprehensive metabolic panel; Future - Lipid profile; Future - Microalbumin - Albumin: Creatinine Urine Ratio; Future - Hemoglobin A1c; Future - TSH with Reflex; Future - Lipoprotein(a), S; Future - POCT Glucose Fingerstick 2. Mixed hyperlipidemia 3. Prostate cancer screening - Prostatic specific antigen, diagnostic; Future 4. Encounter for annual wellness visit - CBC auto differential; Future - Comprehensive metabolic panel; Future - Lipid profile; Future - Microalbumin - Albumin: Creatinine Urine Ratio; Future - Hemoglobin A1c; Future - Prostatic specific antigen, diagnostic; Future - TSH with Reflex; Future - Lipoprotein(a), S; Future Orders Placed This Encounter Procedures CBC auto differential Comprehensive metabolic panel Lipid profile Microalbumin - Albumin: Creatinine Urine Ratio Hemoglobin A1c Prostatic specific antigen, diagnostic TSH with Reflex Lipoprotein(a), S POCT Glucose Fingerstick New Medications Ordered This Visit Medications rosuvastatin (CRESTOR) 5 mg tablet Sig: Take 1 tablet (5 mg total) by mouth in the morning. Dispense: 90 tablet Refill: 1 Medications Discontinued During This Encounter Medication Reason rosuvastatin (CRESTOR) 5 mg tablet Reorder DISCUSSION/FOLLOW UP: Diabetes Mellitus Type 2 Assessment: The patient exhibits high glucose levels despite the use of insulin. There is a plan to conduct A1C blood work for the calibration of the glucose monitor and a urine test for microalbumin to check for early signs of kidney problems. Plan: The current insulin regimen will be continued and adjusted as needed. The patient has been splitting the insulin dose between morning and evening and using additional insulin as needed when glucose levels remain high. A follow-up appointment is scheduled in 3 months. Hyperlipidemia Assessment: The patient's cholesterol levels are within an acceptable range. Plan: The cholesterol medication will be refilled (5 mg pill), and cholesterol levels will continue to be monitored. Diabetic Retinopathy Assessment: A recent eye exam showed no signs of cataracts or glaucoma. Plan: The patient is advised to continue regular eye exams as recommended. Diabetic Neuropathy Assessment: The patient is using prescribed neuropathy medication as needed. Plan: Symptoms will continue to be monitored and treated as necessary. Seasonal Allergies Assessment: The patient's seasonal allergies worsen with furnace use. Plan: The patient will continue using Afrin as needed for nosebleeds. Nosebleeds Assessment: The patient has experienced recent episodes of nosebleeds. Plan: The use of nasal saline and gel for dryness will continue. The provider should be notified if nosebleeds persist or worsen, with a consideration for referral to an ENT if symptoms continue. Abdominal Pain Assessment: The patient experiences intermittent abdominal pain, likely muscle-related. Plan: The patient will monitor for changes or worsening of pain. Vaccinations Assessment: The patient is up to date on shingles, pneumonia, flu, and COVID vaccines. Plan: A Tetanus shot (Tdap) will be considered at the next visit. Preventive Care Assessment: The patient is up to date on colonoscopy and continues regular dental check-ups. Plan: The patient is advised to maintain regular preventive care appointments. A follow-up appointment is scheduled in 3 months or sooner if any concerns arise. Total time spent was 40 minutes: Preparing [...] identified and corrected by editing. DURAN Jin 04/23/24 1504 documented in this encounter [facility] 11-08-2024 Instructions DURAN Jin - 04/23/2024 2:00 PM EST Dear Sd Cardozo, Thank you for visiting us today. We appreciate your commitment to managing your health and are here to support you in your journey. Here is a summary of the bedoya instructions from today's consultation: - Medications: - Continue taking your cholesterol medication, 5 mg as previously prescribed. - Continue using the neuropathy medication as needed, not covered by insurance. - Lab Tests: - Proceed with the A1C, Blood count, Metabolic panel, Thyroid, and cholesterol. - Urine test for microalbumin to check for early signs of kidney issues. - Diabetes Management: - Monitor your glucose levels closely; adjust insulin dosages as discussed if levels are high. - Continue using your constant glucose monitor and log values on the Dexcom 7 despite noted discrepancies. - Consider adjusting mealtime insulin if glucose levels remain high after eating. - If glucose levels stay high an hour after taking insulin, consider taking an additional 1 unit and monitor the response. - General Health: - No need for additional pneumococcal vaccines at this time based on your history and current health status. - Consider a Tdap vaccine during your next visit as it has been over 10 years. - Continue to monitor for any recurring nosebleeds and use Afrin as needed. - Keep using nasal saline and the prescribed gel to manage nasal dryness. - Follow-Up: - Schedule a return visit in 3 months to review your progress and any new lab results. Please feel free to reach out if you have any further questions or concerns. Remember, you can view your upcoming lab results on [employer]. Best regards, DURAN [facility] documented in this encounter [facility] 03-19-2024 History of Present illness Narrative Images from the original note were not included. [facility] [place] [id number] OFFICE: FAX: [phone] Patient: Sd Cardozo Date of : 1960 Encounter Date: 03/19/2024 Subjective Chief Complaint Chief Complaint Patient presents with Follow-up History of Present Illness Sd Cardozo is a 63 y.o. male who has a past medical history of Hyperlipidemia, Neuromuscular disorder ([facility] and Type 1 diabetes ([facility] Sd is an established patient last seen in office 02/17/2024 for complaints of right arm/hand discomfort, most likely associated with over use digging holes. Prior to that visit, he was seen 01/30/2024 for on going management of diabetes Type 1 insulin dependant. A1c in office that day 7.2%, down from 7.9%. He continues to monitor glucose levels with continuous meter. Sd reports resolution of previously experienced arm pain, now feeling back to normal. However, he has developed tingling sensations in both feet, primarily occurring at night, with intermittent episodes. Additionally, he experiences discomfort in left greater toe during the day, describing the sensation as a dull ache rather than numbness. This discomfort has been a recent concern, with walking providing slight relief. Sd reiterates discomfort in one toe, starting this week, with the sensation varying between sitting and walking. He confirms no recent increase in physical activity that might explain this discomfort. He recalls a past foot injury, which occasionally causes pain and contributes to his current symptoms. Sd's recent health measures include stable A1C and sugar levels, which have not been excessively high. Regarding his diabetes management, Sd has adjusted his Tresiba insulin dosage in response to high morning blood sugar levels, noting a requirement for increased insulin over the past three months to achieve desired blood sugar levels. Despite acknowledging the need for dietary improvements, Sd finds this challenging. Sd discusses his diabetes management challenges, describing his condition as britile due to unpredictable blood sugar fluctuations. He has been splitting his insulin doses to manage high morning blood sugar levels, despite maintaining normal levels before bed. Sd practices dietary restraint, avoiding eating after 8 PM, with the exception of occasionally consuming a spoonful of peanut butter. He is due for his second round of shingles and a flu shot and inquires about the possibility of receiving both vaccines simultaneously. Furthermore, Sd had his cholesterol checked at a fitness center (at work) yielding a result of 141 with a ratio of 1.4. He has been taking cholesterol medication Crestor daily. Past Medical, Family, Surgery and Social History Past Medical History: Diagnosis Date Hyperlipidemia Neuromuscular disorder [place] Type 1 diabetes [place] Past Surgical History: Procedure Laterality Date KIDNEY STONE SURGERY History reviewed. No pertinent family history. Social History Socioeconomic History Marital status: Spouse name: Not on file Number of children: Not on file Years of education: Not on file Highest education level: Not on file Occupational History Not on file Tobacco Use Smoking status: Never Smokeless tobacco: Never Vaping Use Vaping status: Never Used Substance and Sexual Activity Alcohol use: Yes Comment: Occ. 1-2 on the weekends Drug use: Never Sexual activity: Defer Other Topics Concern Not on file Social History Narrative Not on file Social Determinants of Health Financial Resource Strain: Not on file Food Insecurity: No Food Insecurity (03/19/2024) Hunger Screening Food Insecurity - Worry: Never True Food Insecurity - Inability: Never True Transportation Needs: Not on file Physical Activity: Not on file Stress: Not on file Social Connections: Not on file Interpersonal Safety: Unknown (08/07/2023) [facility] [place] Safety & Environment Fear of Current or Ex-Partner: Not on file Emotionally Abused: Not on file Physically Abused: Not on file Sexually Abused: Not on file Physically or Sexually Abused: Not on file Housing Instability: Not on file Allergies and Current Medications Allergies Allergen Reactions House Dust Current Outpatient Medications Medication Sig Dispense Refill blood-glucose meter,continuous (DEXCOM G6 SENIOR PRODUCT ENGINEER) misc 1 Device by miscellaneous route continuously. 1 each 0 blood-glucose meter,continuous (DEXCOM G7 SENIOR PRODUCT ENGINEER) misc Inject 1 each under the skin every 10 days. blood-glucose sensor (DEXCOM G6 SENSOR) device 1 each by miscellaneous route every 10 days. 10 each 4 blood-glucose transmitter (DEXCOM G6 TRANSMITTER) device 1 Device by miscellaneous route every 3 (three) months. 1 each 4 glucosamine-chondroitin 500-400 mg capsule Take by mouth. insulin degludec (TRESIBA U-100 INSULIN) 100 unit/mL solution Inject 14-16 Unit under the skin in the morning. 30 mL 1 loratadine (CLARITIN) 10 mg tablet Take 1 tablet (10 mg total) by mouth. MULTIVITAMIN (MULTIPLE VITAMINS ORAL) Take by mouth. NovoLOG FlexPen U-100 Insulin 100 unit/mL (3 mL) insulin pen INJECT 3-7 UNITS UNDER THE SKIN 4 (FOUR) TIMES A DAY WITH MEALS AND NIGHTLY. CARB COUNTING 1-2 UNITS FOR SNACKS. MAX 30 UNITS PER DAY 30 mL 4 rosuvastatin (CRESTOR) 5 mg tablet Take 1 tablet (5 mg total) by mouth in the morning. AMBULATORY COMPOUNDED MEDICATION Apply 1 Application topically every 4 (four) hours as needed (neuopathhic pain). 120 g 11 Immunization, In Clinic, Inject 0.5 mL into the appropriate muscle once for 1 dose. varicella-zoster (PF) 50 mcg/0.5mL Sign this order to satisfy the OSBOP Positive ID requirements for immunization orders. Immunization, In Clinic, Inject into the appropriate muscle once for 1 dose. Sign this order to satisfy the OSBOP Positive ID requirements for immunization orders. No current facility-administered medications for this visit. Review of Systems Review of Systems Constitutional: Negative for activity change, appetite change, fatigue, fever and unexpected weight change. Respiratory: Negative for cough, shortness of breath and wheezing. Cardiovascular: Negative for chest pain, palpitations and leg swelling. Gastrointestinal: Negative for constipation, diarrhea, nausea and vomiting. Genitourinary: Negative for difficulty urinating. Musculoskeletal: Positive for arthralgias. Skin: Negative for rash and wound. Neurological: Positive for numbness. Negative for facial asymmetry, weakness and light-headedness. Psychiatric/Behavioral: Negative for sleep disturbance. Objective: Vital Signs BP 130/80 Pulse 86 Temp 36.6 C (97.9 F) Wt 66.4 kg (146 lb 6.4 oz) SpO2 97% BMI 21.61 kg/m Physical Exam Physical Exam Constitutional: Appearance: Normal appearance. He is well-developed, well-groomed and normal weight. HENT: Head: Normocephalic. Nose: Nose normal. Mouth/Throat: Lips: Martinez. Mouth: Mucous membranes are moist. Cardiovascular: Pulses: Dorsalis pedis pulses are 2+ on the right side and 2+ on the left side. Posterior tibial pulses are 2+ on the right side and 2+ on the left side. Pulmonary: Effort: Pulmonary effort is normal. Musculoskeletal: Cervical back: Full passive range of motion without pain. Right foot: Normal range of motion. Left foot: Normal range of motion. Bunion present. Feet: Right foot: Protective Sensation: 10 sites tested. 10 sites sensed. Skin integrity: No skin breakdown, erythema, callus, dry skin or fissure. Toenail Condition: Right toenails are normal. Left foot: Protective Sensation: 10 sites tested. 10 sites sensed. Skin integrity: No skin breakdown, erythema, callus, dry skin or fissure. Toenail Condition: Left toenails are normal. Skin: General: Skin is warm and [...] Diabetes mellitus type 1, controlled, insulin dependent ([facility]) - DIABETES FOOT EXAM 2. Bilateral foot pain - AMBULATORY COMPOUNDED MEDICATION; Apply 1 Application topically every 4 (four) hours as needed (neuopathhic pain). Dispense: 120 g; Refill: 11 3. Need for shingles vaccine - Zoster Subunit 4. Need for immunization against influenza - FLU VACCINE TS (6MOS UP)(PF) 45 MCG(15MCG X3)/0.5 ML IM SYRINGE Orders Placed This Encounter Procedures Zoster Subunit FLU VACCINE TS (6MOS UP)(PF) 45 MCG(15MCG X3)/0.5 ML IM SYRINGE DIABETES FOOT EXAM New Medications Ordered This Visit Medications AMBULATORY COMPOUNDED MEDICATION Sig: Apply 1 Application topically every 4 (four) hours as needed (neuopathhic pain). Dispense: 120 g Refill: 11 Formula: Sherpaa #[id number] Compounding Instructions: Apply QID as need There are no discontinued medications. DISCUSSION/FOLLOW UP: Resolved Arm Pain Assessment: Sd reports that the arm pain has resolved. Plan: No further intervention is needed. Tingling in Both Feet Assessment: Sd experiences tingling in both feet, more noticeable at night when lying down. Differential diagnoses include peripheral neuropathy, nerve inflammation, or mechanical issues related to footwear or gait. Plan: Prescribe a compounded cream containing Gabapentin from [facility] for potential nerve inflammation and neuropathic pain. Instruct Sd to apply the cream up to four times a day, focusing on nighttime application. Reassess the effectiveness of the cream during the next visit. Toe Discomfort and Bunion Assessment: Sd reports a history of toe fracture and occasional pain in the affected toe. Plan: Recommend [id number] non-steroidal anti-inflammatory creams such as Gluconect or Voltaren for arthritic pain related to the previous toe fracture. Encourage Sd to continue monitoring the toe and seek podiatric care if the pain worsens or becomes unmanageable. Diabetes Management Assessment: Sd reports recent high morning blood sugars and increased insulin requirements. Discussed potential causes of morning hyperglycemia, including the Somogyi effect and augustina phenomenon. Plan: Continue monitoring blood sugar levels and adjusting insulin doses as needed. Educate Sd on the Somogyi effect and augustina phenomenon as potential causes for high morning blood sugars. Reassess diabetes management during the next visit and consider further adjustments to the insulin regimen if necessary. Preventive Care Assessment: Recent cholesterol check at a fitness center showed improvement: total cholesterol 141, ratio 1.4. Plan: Administer the second round of shingles vaccine and flu shot during the current visit. Schedule a physical examination in a month or so, during which complete blood work, including cholesterol and electrolyte levels, will be performed. Compression Stockings Assessment: Sd reports using compression stockings and finding them helpful. Plan: Encourage Sd to continue wearing compression stockings to improve circulation and potentially alleviate discomfort in the feet and legs. Total time spent was 35 minutes: Preparing to see the patient (e.g., [...] identified and corrected by editing. DURAN Jin 03/19/24 1516 documented in this encounter [facility] [employer] 03-19-2024 Instructions DURAN Jin - 03/19/2024 2:00 PM EDT Thank you for visiting us today. We appreciate your commitment to maintaining and improving your health. Here are the bedoya instructions and recommendations from today's consultation: - Medications for Foot Discomfort: - Consider using Voltaren cream for arthritic pain. - [facility] will contact you regarding a compounded medication that includes gabapentin, lidocaine, and anti-inflammatories for neuropathy and nerve pain. They will inform you about insurance coverage and costs. - Vaccinations: - You received your second round of the shingles vaccine and a flu shot today. - Lifestyle Recommendations: - Continue using compression stockings to help with circulation and potentially alleviate discomfort. - Monitor the effects of the creams and medications on your foot discomfort, especially at night. - Diabetes Management: - Adjust your Tresiba insulin dosage as discussed, considering splitting the dose to manage morning blood sugar levels effectively. - Continue monitoring your blood sugar closely and adjust insulin as needed. - Be aware of the possibility of the augustina phenomenon or Somogyi effect causing morning highs. - Follow-Up: - Schedule a physical examination in about a month to include comprehensive blood work (cholesterol, electrolytes, kidney function, liver enzymes, blood count, and thyroid). - General Advice: - Keep an eye on dietary intake to manage blood sugar levels effectively. - Be aware of potential aches or feverish feelings following today's vaccinations and manage with Tylenol or ibuprofen as needed. - Continue to avoid eating after 8 PM, except for possibly a spoonful of peanut butter if needed. We look forward to seeing you again soon to continue monitoring and supporting your health. documented in this encounter [facility] 02-17-2024 History of Present illness Narrative Images from the original note were not included. [facility] [place] [id number] OFFICE: FAX: [phone] Patient: Sd Cardozo Date of : 1960 Encounter Date: 02/17/2024 Subjective Chief Complaint Chief Complaint Patient presents with Hand Pain Tingling x3 days in right hand going up to elbow. Taking Asprin and mucus le relaxer History of Present Illness Sd Cardozo, 63 y.o. years old, presents to [facility] for an acute/urgent visit with chief complaint numbness, tingling and mild discomfort in right forearm/wrist. Sd presents with a chief complaint of tingling in his right wrist for the past three days. He reports that the tingling sensation lasts for approximately half an hour before subsiding. Sd has been taking aspirin and muscle relaxers to alleviate the discomfort, which he states have been somewhat helpful. He mentions that the tingling is mostly localized in the wrist, with occasional numbness in the fingers. Sd describes the sensation as more numbness than pain, with occasional cramping and a dull ache. Sd reports that he experienced some pain on the medial side of his elbow yesterday, but denies any pain in the shoulders or neck. He denies any weakness in the hands, but notes that the affected area sometimes feels heavy. He does not report any spasms or pulsating sensations, and states that the left hand is unaffected. He has not been using any creams for the issue, only muscle relaxers and aspirin. 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 He is right-handed and suspects that overextending his wrist may have contributed to the issue. Sd also mentions that he started taking rosuvastatin 5 mg daily for cholesterol management on Friday, with no reported problems. Past Medical, Family, Surgery and Social History The following portions of the patient's history were reviewed and updated as appropriate: Health Risk Assessment, allergies, past medical history, past surgical history, social history, family history, and immunization history. Allergies and Current Medications Allergies Allergen Reactions House Dust Current Outpatient Medications Medication Sig Dispense Refill blood-glucose meter,continuous (DEXCOM G6 SENIOR PRODUCT ENGINEER) misc 1 Device by miscellaneous route continuously. 1 each 0 blood-glucose meter,continuous (DEXCOM G7 SENIOR PRODUCT ENGINEER) misc Inject 1 each under the skin every 10 days. blood-glucose sensor (DEXCOM G6 SENSOR) device 1 each by miscellaneous route every 10 days. 10 each 4 blood-glucose transmitter (DEXCOM G6 TRANSMITTER) device 1 Device by miscellaneous route every 3 (three) months. 1 each 4 glucosamine-chondroitin 500-400 mg capsule Take by mouth. insulin degludec (TRESIBA U-100 INSULIN) 100 unit/mL solution Inject 14-16 Unit under the skin in the morning. 30 mL 1 loratadine (CLARITIN) 10 mg tablet Take 1 tablet (10 mg total) by mouth. MULTIVITAMIN (MULTIPLE VITAMINS ORAL) Take by mouth. NovoLOG FlexPen U-100 Insulin 100 unit/mL (3 mL) insulin pen INJECT 3-7 UNITS UNDER THE SKIN 4 (FOUR) TIMES A DAY WITH MEALS AND NIGHTLY. CARB COUNTING 1-2 UNITS FOR SNACKS. MAX 30 UNITS PER DAY 30 mL 4 rosuvastatin (CRESTOR) 5 mg tablet Take 1 tablet (5 mg total) by mouth in the morning. No current facility-administered medications for this visit. Review of Systems Review of Systems Constitutional: Negative for activity change, appetite change, fatigue, fever and unexpected weight change. Musculoskeletal: Positive for myalgias. Neurological: Positive for numbness. Objective: Vital Signs BP 140/80 Pulse 71 Temp 37.1 C (98.8 F) Wt 67 kg (147 lb 12.8 oz) SpO2 96% BMI 21.82 kg/m Physical Exam Physical Exam Vitals and nursing note reviewed. Constitutional: Appearance: Normal appearance. He is well-developed, well-groomed and normal weight. HENT: Mouth/Throat: Lips: Martinez. Mouth: Mucous membranes are moist. Musculoskeletal: Right forearm: Tenderness present. No swelling. Left forearm: No swelling or tenderness. Right wrist: No tenderness. Normal range of motion. Left wrist: No tenderness. Normal range of motion. Arms: Comments: No pain with pronation or supination of right arm. No pain with flexion or extension of right wrist. No weakness in right hand. Left hand normal. Neurological: Mental Status: He is alert. Psychiatric: Behavior: Behavior is cooperative. Lab Results Component Value Date WBC 6.9 06/06/2023 HGB 14.2 06/06/2023 HCT 41.5 06/06/2023 PLT 194 06/06/2023 CHOL 176 06/06/2023 TRIG 77 06/06/2023 HDL 74 06/06/2023 ALT 27 06/06/2023 AST 26 06/06/2023 K 4.8 06/06/2023 CL 101 06/06/2023 CREATININE 0.96 06/06/2023 BUN 17 06/06/2023 CO2 31 06/06/2023 TSH 1.16 06/06/2023 MICROALBUR 0.7 06/06/2023 Assessment and Plan: Sd Cardozo is a 63 y.o. male who has a past medical history of Hyperlipidemia, Neuromuscular disorder ([facility] and Type 1 diabetes ([facility]). here with 1. Diabetes mellitus type 1, controlled, insulin dependent ([facility]) 2. Numbness and tingling of right arm and leg Discussion: Right Wrist Tingling and Numbness Assessment: The patient presents with tingling and numbness in the right wrist, likely due to overuse and inflammation of the ligaments and tendons. Plan: The patient is advised to rest the affected wrist and use [id number] non-steroidal anti-inflammatory medications (e.g., ibuprofen) for inflammation. Topical creams such as Icy Hot, Blue, or Voltaren (diclofenac) are recommended for pain relief and inflammation reduction. Applying ice for short periods can also help with inflammation. Symptoms will be monitored, and further evaluation, including an EMG, will be considered if the condition worsens or weakness develops. Cholesterol Management Assessment: The patient is currently on rosuvastatin 5 mg daily for cholesterol management. Plan: The patient will continue taking rosuvastatin 5 mg daily. Non-fasting blood work will be performed to assess cholesterol levels, with a focus on LDL levels. The patient will be educated about the importance of cholesterol management in preventing vascular disease, especially as a type 1 diabetic. Type 1 Diabetes Assessment: The patient's type 1 diabetes is well-controlled. Plan: The current diabetes management regimen will be continued. Blood glucose levels will be monitored regularly. The importance of maintaining good glycemic control will be emphasized to reduce the risk of complications, including vascular disease and neuropathy. Total time spent was 30 minutes: Preparing to see the patient (e.g., review of tests) Obtaining and/or reviewing separately obtained history Performing a medically appropriate examination and/or evaluation Counseling and educating the patient/family/caregiver Documenting clinical information in the electronic or other health record DURAN Jin This note was created with the assistance of a speech-recognition program. Although the intention is to generate a document that actually reflects the content of the visit, no guarantees can be provided that every mistake has been identified and corrected by editing. DURAN Jin 02/17/24 1400 documented in this encounter [facility] 02-17-2024 Instructions DURAN Jin - 02/17/2024 11:30 AM EDT Thank you for visiting today and discussing your concerns regarding the tingling in your right wrist. I appreciate your commitment to addressing this health issue and taking steps towards improvement. Here is a summary of the bedoya instructions and recommendations from our consultation: - Rest and Avoid Repetitive Motion: Minimize activities that may exacerbate the wrist pain, such as digging or heavy use of hand tools. - Medications and Treatments: - Continue using muscle relaxers as currently prescribed. - Use non-steroidal anti-inflammatory medications like ibuprofen to help with inflammation. - Apply topical creams such as Icy Hot or Voltaren (diclofenac) three to four times a day to the affected area. - Consider soaking your arm in Epsom salts and using warm compression to alleviate discomfort. - Monitoring and Further Evaluation: - Keep an eye on the symptoms, especially if numbness or tingling worsens or spreads. - If symptoms persist or worsen, we may need to consider an Electromyography (EMG) test to evaluate nerve and muscle function. - Lifestyle Adjustments: - Use ice packs for inflammation as needed, ensuring not to apply ice directly to the skin. - Lab Work: - Upcoming blood work for cholesterol and triglycerides, which does not require fasting. This will help us monitor your levels while on rosuvastatin. Please continue taking rosuvastatin 5 mg daily as prescribed and monitor any changes in your symptoms. If you notice increased weakness, numbness, or if the pain becomes more frequent, please contact our office immediately. Thank you once again for your proactive approach to your health. If you have any questions or need further assistance, feel free to reach out. documented in this encounter [facility] 01-30-2024 History of Present illness Narrative Images from the original note were not included. [email or web address] [address] [place], [place] [id number] OFFICE: FAX: [phone] Patient: Sd Cardozo Date of : 1960 Encounter Date: 01/30/2024 Subjective Chief Complaint Chief Complaint Patient presents with Follow-up Diabetes Diabetes History of Present Illness Sd Cardozo is a 63 y.o. male who has a past medical history of Hyperlipidemia, Neuromuscular disorder ([facility]), and Type 1 diabetes ([facility]). Sd is an established patient last seen in office 12/09/2023 for on going management of Diabetes mellitis type 1. During last appointment discussed glucose fluctuations. Sd reports trying to keep blood sugars stable and has adjusted long-acting insulin slightly, but no significant changes have been observed. He experiences occasional lows, usually between 8-10 AM, but not consistently, and believes stress may be a factor. Sd has been eating consistent carbohydrates, but sometimes blood sugar remains high, around 250, even after taking fast-acting insulin (Novolog) before meals. Sd reports that his highest blood sugar has been 300 and is usually concerned if it is still high after 2 hours. Blood sugars vary despite a consistent routine, possibly due to insulin resistance or variable natural insulin production. Morning blood sugars are decent, averaging 100-140. Sd has not started cholesterol medication, rousuvastatin 5 mg daily. He had tried atorvastatin several years ago, but developed a rash. He never tried a statin again to determine if rash was from statin or from something else. He thinks he may have received an immuization around the same time. Sd's recent A1C was 7.9 in November, higher than expected. He has no numbness or tingling, neuropathy, except when his sugar is way high, he feels a little tingling. Sd can tell right away when he is going low because he starts to get lightheaded. He checks his feet regularly and keeps lotion on them. Sd's weight has been down a bit, 148 lbs today, compared to 150 lbs before and 155 lbs last summer. He fluctuates within five pounds but has never been able to gain weight. The heaviest he has been is around 160 lbs. Sd's PSA count is now perfect after being slightly elevated before. He had a pelvic exam and MRI, which came back negative. All urine tests were good as well. Sd's A1c is 7.2, and he has managed to keep it around seven for almost 25 years. His eyesight is good, with just a slight change in his right eye, but nothing drastic. They checked the retina, and all was good. Sd had a colon cancer screening about a year ago, and the results were normal. Weight 01/30/24 1606 67 kg (147 lb 12.8 oz) 12/09/23 1403 68.3 kg (150 lb 9.6 oz) 10/16/23 1500 68.2 kg (150 lb 6.4 oz) 10/06/23 1357 69.6 kg (153 lb 6.4 oz) 09/04/23 1501 70.3 kg (155 lb) 07/10/23 1456 70.9 kg (156 lb 6.4 oz) 06/06/23 1451 69.6 kg (153 lb 6.4 oz) 02/13/23 1530 70.5 kg (155 lb 6.4 oz) 11/14/22 1556 69.2 kg (152 lb 9.6 oz) 10/21/22 1600 69.8 kg (153 lb 12.8 oz) 09/17/22 1537 69.8 kg (153 lb 12.8 oz) 09/06/22 1531 69.9 kg (154 lb) Sd indicates unusual skin lesion on his arm. He reports that the lesion appeared two days ago and has a perfect circular shape. He denies any recollection of trauma or insect bites that could have caused the lesion. He states that the lesion does not cause any pain or discomfort. He also mentions that the lesion was clerical assistant in color yesterday, but it has become darker today. Past Medical, Family, Surgery and Social History Past Medical History: Diagnosis Date Hyperlipidemia Neuromuscular disorder ([facility]) [place] 1 [place] Past Surgical History: Procedure Laterality Date KIDNEY STONE SURGERY History reviewed. No pertinent family history. Social History Socioeconomic History Marital status: Spouse name: Not on file Number of children: Not on file Years of education: Not on file Highest education level: Not on file Occupational History Not on file Tobacco Use Smoking status: Never Smokeless tobacco: Never Vaping Use Vaping status: Never Used Substance and Sexual Activity Alcohol use: Yes Comment: Occ. 1-2 on the weekends Drug use: Never Sexual activity: Defer Other Topics Concern Not on file Social History Narrative Not on file Social Determinants of Health Financial Resource Strain: Not on file Food Insecurity: No Food Insecurity (01/30/2024) Hunger Screening Food Insecurity - Worry: Never True Food Insecurity - Inability: Never True Transportation Needs: Not on file Physical Activity: Not on file Stress: Not on file Social Connections: Not on file Interpersonal Safety: Unknown (08/07/2023) [facility] [place] Safety & Environment Fear of Current or Ex-Partner: Not on file Emotionally Abused: Not on file Physically Abused: Not on file Sexually Abused: Not on file Physically or Sexually Abused: Not on file Housing Instability: Not on file Allergies and Current Medications Allergies Allergen Reactions House Dust Current Outpatient Medications Medication Sig Dispense Refill blood-glucose meter,continuous (DEXCOM G6 SENIOR PRODUCT ENGINEER) misc 1 Device by miscellaneous route continuously. 1 each 0 blood-glucose meter,continuous (DEXCOM G7 SENIOR PRODUCT ENGINEER) misc Inject 1 each under the skin every 10 days. blood-glucose sensor (DEXCOM G6 SENSOR) device 1 each by miscellaneous route every 10 days. 10 each 4 blood-glucose transmitter (DEXCOM G6 TRANSMITTER) device 1 Device by miscellaneous route every 3 (three) months. 1 each 4 glucosamine-chondroitin 500-400 mg capsule Take by mouth. insulin degludec (TRESIBA U-100 INSULIN) 100 unit/mL solution Inject 14-16 Unit under the skin in the morning. 30 mL 1 loratadine (CLARITIN) 10 mg tablet Take 1 tablet (10 mg total) by mouth. MULTIVITAMIN (MULTIPLE VITAMINS ORAL) Take by mouth. NovoLOG FlexPen U-100 Insulin 100 unit/mL (3 mL) insulin pen INJECT 3-7 UNITS UNDER THE SKIN 4 (FOUR) TIMES A DAY WITH MEALS AND NIGHTLY. CARB COUNTING 1-2 UNITS FOR SNACKS. MAX 30 UNITS PER DAY 30 mL 4 Immunization, In Clinic, Inject 0.5 mL into the appropriate muscle once for 1 dose. varicella-zoster (PF) 50 mcg/0.5mL Sign this order to satisfy the OSBOP Positive ID requirements for immunization orders. No current facility-administered medications for this visit. Review of Systems Review of Systems Constitutional: Negative for activity change, appetite change, fatigue, fever and unexpected weight change. Eyes: Negative for pain, discharge, itching and visual disturbance. Respiratory: Negative for cough and shortness of breath. Cardiovascular: Negative for chest pain. Gastrointestinal: Negative for constipation, diarrhea, nausea and vomiting. Genitourinary: Negative for difficulty urinating. Skin: Positive for color change. Neurological: Negative for dizziness, weakness, light-headedness, numbness and headaches. Hematological: Bruises/bleeds easily (abnormal bruise on right arm). Psychiatric/Behavioral: Negative for dysphoric mood and sleep disturbance. Objective: Vital Signs BP 120/80 Pulse 69 Temp 36.9 C (98.4 F) Ht 175.3 cm (5' 9.02 ) Wt 67 kg (147 lb 12.8 oz) SpO2 94% BMI 21.82 kg/m Physical Exam Physical Exam Vitals and nursing note reviewed. Constitutional: Appearance: Normal appearance. He is well-developed, well-groomed and normal weight. HENT: Head: Normocephalic and atraumatic. Nose: Nose normal. Mouth/Throat: Lips: [place]. Mouth: Mucous membranes are moist. Eyes: General: Lids are normal. Cardiovascular: Rate and Rhythm: Normal rate. Pulmonary: Effort: Pulmonary effort is normal. No respiratory distress. Abdominal: General: There is no distension. Palpations: Abdomen is soft. Tenderness: There is no abdominal tenderness. Musculoskeletal: General: Normal range of motion. Cervical back: Full passive range of motion without pain and normal range of motion. Skin: General: Skin is warm and dry. Findings: Ecchymosis (right lower arm) present. Comments: Circular flat lesion approx 8-10 mm circumference with outer edge darker discoloration and clerical assistant red in center. Nontender to tough. Neurological: Mental Status: He is alert and oriented to person, place, and time. Gait: Gait normal. Psychiatric: Attention and Perception: Attention and perception normal. He is attentive. Mood and Affect: Mood and affect normal. [...] Diabetes mellitus type 1, controlled, insulin dependent ([facility]) - POCT Hemoglobin A1c 2. Mixed hyperlipidemia 3. Contusion of right upper extremity, initial encounter 4. Need for shingles vaccine - Zoster Subunit - Immunization, In Clinic,; Inject 0.5 mL into the appropriate muscle once for 1 dose. varicella-zoster (PF) 50 mcg/0.5mL Sign this order to satisfy the OSBOP Positive ID requirements for immunization orders. Orders Placed This Encounter Procedures Zoster Subunit POCT Hemoglobin A1c No orders of the defined types were placed in this encounter. There are no discontinued medications. DISCUSSION/FOLLOW UP: Type 1 Diabetes Mellitus Assessment: The patient reports experiencing occasional lows between 8-10 AM and inconsistent blood sugar levels despite maintaining a consistent routine. The most recent A1C, recorded in November, was 8.1, which is higher than expected. Current blood sugar patterns indicate 6% very high, 27% high, 63% average, 1% very low, and 3% low. Plan: The patient is advised to continue monitoring blood sugar levels using the current Continuous Glucose Monitor (CGM). There may be a need to adjust the dosage of long-acting insulin (Tresiba) if necessary. A follow-up appointment in three months is scheduled to reassess blood sugar control and A1C levels. Hyperlipidemia Assessment: The patient has a history of elevated cholesterol levels. Previous treatments with Atorvastatin and Lipitor were discontinued due to side effects. The patient will commence treatment with Crestor (Rosuvastatin) at a dosage of 2.5 mg daily, which is half of a 5 mg pill. Plan: The patient will be monitored for any side effects, and adjustments to the dosage or frequency of Crestor will be made as needed. Cholesterol levels will be rechecked in three months during the follow-up visit. Prostate-Specific Antigen (PSA) Monitoring Assessment: The patient reports that the recent PSA count is now within the normal range. All other tests, including the pelvic exam, MRI, and prostate exam, were negative. Plan: Annual monitoring with the urologist, Dr. Ortiz, will continue. A request for the release of information will be made to obtain records from [facility]. Preventive Care Assessment: The patient has undergone recent screenings for colon cancer and an eye exam, both of which yielded normal results. Plan: The patient is advised to continue with annual eye exams and adhere to the recommended colon cancer screening schedule. Shingles Vaccine Assessment: Due to diabetes and age, the patient is at a higher risk for shingles. Plan: The first dose of the shingles vaccine series will be administered during this visit. The second dose is scheduled for the next visit in three months. Blood Pressure Management Assessment: The patient reports good control over blood pressure. Plan: Regular monitoring of blood pressure will continue. Weight Management Assessment: The patient's weight is stable and within the lower range of the Body Mass Index (BMI). Plan: The patient is encouraged to maintain a healthy weight and engage in regular physical activity. A routine follow-up is scheduled in three months for a checkup, A1C test, and cholesterol test. Unexplained Circular Bruise on Arm Assessment: The patient presented with a circular bruise on the arm, noting no recollection of any injury or insect bite that could have led to its appearance. The bruise has been present for approximately two days and has darkened slightly since its initial appearance. The patient reports no pain or discomfort associated with the bruise. Plan: A photograph of the bruise was taken for documentation purposes and to allow for comparison in case of any changes. The patient was advised to monitor the bruise closely and to return for a follow-up if the bruise worsens or does not resolve on its own. Reassurance was provided to the patient, explaining that bruising is common and the circular shape may simply be due to the manner in which the arm was hit or bumped. Total time spent was 40 minutes: Preparing [...] identified and corrected by editing. DURAN Jin 01/30/241911 documented in this encounter [facility] [employer] 01-30-2024 Instructions DURAN Jin - 01/30/2024 4:00 PM EDT Thank you for visiting today and discussing your health concerns with me. I appreciate your attentiveness to changes in your health and your proactive approach in seeking advice. - Insulin Management: - Consider increasing long-acting insulin from 17 to 20 units to manage morning highs without causing lows. - Continue monitoring blood sugar levels, especially during periods of stress or unusual activity. - Avoid stacking doses of fast-acting insulin (Novolog) and monitor its effectiveness during peak times. - Cholesterol Management: - Restart Crestor at a reduced dose of 2.5 mg (half a pill), as discussed, to manage cholesterol levels. - Monitor for any side effects like headaches and adjust the dosage as necessary. - Diabetes Monitoring Tools: - Keep using your current glucose monitoring system and ensure it is calibrated correctly. - Be aware of discrepancies between different devices and their readings. - General Health: - Continue annual checks for eyes and feet, and maintain regular foot care. - Follow up on PSA levels and ensure all urology records are up-to-date. - Consider getting the shingles vaccine as recommended, to be administered in two doses. - Lifestyle: - Maintain a consistent carbohydrate intake and monitor how dietary choices affect blood sugar levels. - Stay active but monitor blood sugar levels closely to prevent lows, especially after physical activity. - Follow-Up: - Schedule a follow-up appointment in three months to review the effectiveness of the adjusted treatments and conduct a cholesterol test. - Observation of the George: We noted the george has a perfect circular shape, which is unusual for a bruise. It does not cause you pain, and you do not recall any specific injury that could have caused it. - Photographic Documentation: I took a photograph of the george for our records to monitor any changes over time. - Monitoring Instructions: Please keep an eye on the george. If it changes in size, color, or if you experience any discomfort, please contact our office immediately. - Follow-Up: No immediate follow-up appointment is necessary unless the condition of the george worsens or other symptoms develop. Please feel free to reach out if you have any further questions or concerns. documented in this encounter [facility] 12-22-2023 Hospital Discharge instructions Patient Education 12/22/2023 15:25:31 Prostate Cancer Screening Prostate Cancer Screening Prostate cancer screening is testing that is done to check for the presence of prostate cancer in men. The prostate gland is a walnut-sized gland that is located below the bladder and in front of the rectum in males. The function of the prostate is to add fluid to semen during ejaculation. Prostate cancer is one of the most common types of cancer in men. Who should have prostate cancer screening? Screening recommendations vary based on age and other risk factors, as well as between the professional organizations who make the recommendations. In general, screening is recommended if: You are age 50 to 70 and have an average risk for prostate cancer. You should talk with your health care provider about your need for screening and how often screening should be done. Because most prostate cancers are slow growing and will not cause , screening in this age group is generally reserved for men who have a 10- to 15-year life expectancy. You are younger than age 50, and you have these risk factors: ?Having a father, brother, or uncle who has been diagnosed with prostate cancer. The risk is higher if your family member's cancer occurred at an early age or if you have multiple family members with prostate cancer at an early age. ?Being a male who is Black or is of [place] or sub-Saharan descent. In general, screening is not recommended if: You are younger than age 40. You are between the ages of 40 and 49 and you have no risk factors. You are 70 years of age or older. At this age, the risks that screening can cause are greater than the benefits that it may provide. If you are at high risk for prostate cancer, your health care provider may recommend that you have screenings more often or that you start screening at a younger age. How is screening for prostate cancer done? The recommended prostate cancer screening test is a blood test called the prostate-specific antigen (PSA) test. PSA is a protein that is made in the prostate. As you age, your prostate naturally produces more PSA. Abnormally high PSA levels may be caused by: Prostate cancer. An enlarged prostate that is not caused by cancer (benign prostatic hyperplasia, or BPH). This condition is very common in older men. A prostate gland infection (prostatitis) or urinary tract infection. Certain medicines such as male hormones (like testosterone) or other medicines that raise testosterone levels. A rectal exam may be done as part of prostate cancer screening to help provide information about the size of your prostate gland. When a rectal exam is performed, it should be done after the PSA level is drawn to avoid any effect on the results. Depending on the PSA results, you may need more tests, such as: A physical exam to check the size of your prostate gland, if not done as part of screening. Blood and imaging tests. A procedure to remove tissue samples from your prostate gland for testing (biopsy). This is the only way to know for certain if you have prostate cancer. What are the benefits of prostate cancer screening? Screening can help to identify cancer at an early stage, before symptoms start and when the cancer can be treated more easily. There is a small chance that screening may lower your risk of dying from prostate cancer. The chance is small because prostate cancer is a slow-growing cancer, and most men with prostate cancer from a different cause. What are the risks of prostate cancer screening? The main risk of prostate cancer screening is diagnosing and treating prostate cancer that would never have caused any symptoms or problems. This is called overdiagnosisand overtreatment. PSA screening cannot tell you if your PSA is high due to cancer or a different cause. A prostate biopsy is the only procedure to diagnose prostate cancer. Even the results of a biopsy may not tell you if your cancer needs to be treated. Slow-growing prostate cancer may not need any treatment other than monitoring, so diagnosing and treating it may cause unnecessary stress or other side effects. Questions to ask your health care provider When should I start prostate cancer screening? What is my risk for prostate cancer? How often do I need screening? What type of screening tests do I need? How do I get my test results? What do my results mean? Do I need treatment? Where to find more information The [place] [employer]: www.cancer.org [place] [employer]: www.auanet.org Contact a health care provider if: You have difficulty urinating. You have pain when you urinate or ejaculate. You have blood in your urine or semen. You have pain in your back or in the area of your prostate. Summary Prostate cancer is a common type of cancer in men. The prostate gland is located below the bladder and in front of the rectum. This gland adds fluid to semen during ejaculation. Prostate cancer screening may identify cancer at an early stage, when the cancer can be treated more easily and is less likely to have spread to other areas of the body. The prostate-specific antigen (PSA) test is the recommended screening test for prostate cancer, but it has associated risks. Discuss the risks and benefits of prostate cancer screening with your health care provider. If you are age 70 or older, the risks that screening can cause are greater than the benefits that it may provide. This information is not intended to replace advice given to you by your health care provider. Make sure you discuss any questions you have with your health care provider. Document Revised: 11/26/2021 Document Reviewed: 11/26/2021 [employer] Patient Education 2022 [employer]. Follow Up Care 10/09/2023 16:07:18 With:ANGELIQUE LUNDBERGKim, URL Address: [facility] [address] [place] [phone]- [phone] When: Unknown Comments:1 yr w/ PSA [facility] [place] 12-09-2023 History of Present illness Narrative Images from the original note were not included. [facility] [employer] [place] [address] OFFICE: FAX: [phone] Patient: Sd Cardozo Date of : 1960 Encounter Date: 12/09/2023 Subjective Chief Complaint Chief Complaint Patient presents with Follow-up History of Present Illness Sd Cardozo is a 63 y.o. male who has a past medical history of Hyperlipidemia, Neuromuscular disorder ([facility] and Type 1 diabetes ([facility]). Sd is an established patient last seen in office on 10/16/2023 for management of type 1 D.M. he had switch to Tresiba 16 units daily and reported stable glucose levels. He continued to take Novolog with meals. A1C was 6.8% on September 03. Other labs have been stable. Sd presents with concerns about his current medication regimen. He reports that he has been on his medication for about three months and believes it is generally effective. However, he expresses concerns about unintended weight loss, which he notices as a decrease in muscle tone, despite regular workouts. His has also commented on his noticeable weight loss. Sd mentions that his weight has decreased by about six pounds since June. Sd discusses his diabetes management, noting fluctuations in his blood sugar levels, which he attributes to his dietary intake. He experiences occasional lows but feels they have decreased with his current medication. He is concerned about needing increased doses of insulin, as he feels he might be developing insulin resistance. Previously, he managed his blood sugar levels with smaller insulin doses, but recently, he finds that he requires more insulin to achieve the same effect. He also shares that he has started using a new sensor for monitoring his blood sugar, which he finds slightly inaccurate compared to direct blood measurements. He calibrates it to manage minor discrepancies. Additionally, Sd provides information from a recent health check at his workplace, noting stable cholesterol and blood pressure levels but expresses concern over his A1C levels and overall glucose management, especially after meals rich in carbohydrates. Overall, Sd is proactive in managing his diabetes but seeks advice on adjusting his insulin therapy to address his current challenges, particularly the unexpected weight loss and the need for increased insulin doses. Glucose Monitoring: Recent sensor readings indicate glucose levels are kind of up and down, with occasional lows. Specific glucose values include a high of 300 mg/dL after a meal, with difficulty reducing it overnight. - Continuous Glucose Monitoring (CGM) Data: Sensor started last week, sometimes reads 20 units off. CGM data from the last 7 days shows 63% time in normal glucose range, 1% low, 1% very low, 12% very high, and 23% high. - Hemoglobin A1c: Last recorded A1c was 7.9, up from 6.8 in August. Random glucose at work - Non-fasting glucose recorded at 123 mg/dL at 2 PM, described as good for non-fasting. Weight 12/09/23 1403 68.3 kg (150 lb 9.6 oz) 10/16/23 1500 68.2 kg (150 lb 6.4 oz) 10/06/23 1357 69.6 kg (153 lb 6.4 oz) 09/04/23 1501 70.3 kg (155 lb) 07/10/23 1456 70.9 kg (156 lb 6.4 oz) 06/06/23 1451 69.6 kg (153 lb 6.4 oz) 02/13/23 1530 70.5 kg (155 lb 6.4 oz) 11/14/22 1556 69.2 kg (152 lb 9.6 oz) 10/21/22 1600 69.8 kg (153 lb 12.8 oz) 09/17/22 1537 69.8 kg (153 lb 12.8 oz) 09/06/22 1531 69.9 kg (154 lb) 07/30/22 1543 70.1 kg (154 lb 8 oz) Past Medical, Family, Surgery and Social History Past Medical History: Diagnosis Date Hyperlipidemia Neuromuscular disorder ([facility]) Type 1 diabetes ([facility]) Past Surgical History: Procedure Laterality Date KIDNEY STONE SURGERY History reviewed. No pertinent family history. Social History Socioeconomic History Marital status: Spouse name: Not on file Number of children: Not on file Years of education: Not on file Highest education level: Not on file Occupational History Not on file Tobacco Use Smoking status: Never Smokeless tobacco: Never Vaping Use Vaping status: Never Used Substance and Sexual Activity Alcohol use: Yes Comment: Occ. 1-2 on the weekends Drug use: Never Sexual activity: Defer Other Topics Concern Not on file Social History Narrative Not on file Social Determinants of Health Financial Resource Strain: Not on file Food Insecurity: No Food Insecurity (10/16/2023) Hunger Screening Food Insecurity - Worry: Never True Food Insecurity - Inability: Never True Transportation Needs: Not on file Physical Activity: Not on file Stress: Not on file Social Connections: Not on file Interpersonal Safety: Unknown (08/07/2023) Received from [facility] Safety & Environment Fear of Current or Ex-Partner: Not on file Emotionally Abused: Not on file Physically Abused: Not on file Sexually Abused: Not on file Physically or Sexually Abused: Not on file Housing Instability: Not on file Allergies and Current Medications Allergies Allergen Reactions House Dust Current Outpatient Medications Medication Sig Dispense Refill blood-glucose meter,continuous (DEXCOM G6 SENIOR PRODUCT ENGINEER) misc 1 Device by miscellaneous route continuously. 1 each 0 blood-glucose sensor (DEXCOM G6 SENSOR) device 1 each by miscellaneous route every 10 days. 10 each 4 blood-glucose transmitter (DEXCOM G6 TRANSMITTER) device 1 Device by miscellaneous route every 3 (three) months. 1 each 4 glucosamine-chondroitin 500-400 mg capsule Take by mouth. insulin degludec (TRESIBA U-100 INSULIN) 100 unit/mL solution Inject 14-16 Unit under the skin in the morning. 30 mL 1 blood-glucose meter,continuous (DEXCOM G7 SENIOR PRODUCT ENGINEER) misc Inject 1 each under the skin every 10 days. loratadine (CLARITIN) 10 mg tablet Take 1 tablet (10 mg total) by mouth. MULTIVITAMIN (MULTIPLE VITAMINS ORAL) Take by mouth. NovoLOG FlexPen U-100 Insulin 100 unit/mL (3 mL) insulin pen INJECT 3-7 UNITS UNDER THE SKIN 4 (FOUR) TIMES A DAY WITH MEALS AND NIGHTLY. CARB COUNTING 1-2 UNITS FOR SNACKS. MAX 30 UNITS PER DAY 30 mL 4 No current facility-administered medications for this visit. Review of Systems Review of Systems Constitutional: Positive for unexpected weight change. Negative for activity change, appetite change, fatigue and fever. Respiratory: Negative for cough and shortness of breath. Cardiovascular: Negative for chest pain, palpitations and leg swelling. Gastrointestinal: Negative for abdominal pain, diarrhea, nausea and vomiting. Genitourinary: Negative for difficulty urinating. Musculoskeletal: Negative for gait problem, joint swelling and neck pain. Neurological: Negative for dizziness, light-headedness and numbness. Psychiatric/Behavioral: Negative for sleep disturbance. Objective: Vital Signs BP 120/80 Pulse 82 Temp 37 C (98.6 F) Ht 175.3 cm (5' 9.02 ) Wt 68.3 kg (150 lb 9.6 oz) SpO2 96% BMI 22.23 kg/m Physical Exam Physical Exam Vitals and nursing note reviewed. Constitutional: Appearance: Normal appearance. He is well-developed, well-groomed and normal weight. HENT: Head: Normocephalic. Nose: Nose normal. Mouth/Throat: Lips: Martinez. Mouth: Mucous membranes are moist. Cardiovascular: Rate and Rhythm: Normal rate. Pulmonary: Effort: Pulmonary effort is normal. No respiratory distress. Skin: General: Skin is warm and dry. [...] Diabetes mellitus type 1, controlled, insulin dependent ([facility]) - POCT Hemoglobin A1c Orders Placed This Encounter Procedures POCT Hemoglobin A1c No orders of the defined types were placed in this encounter. Medications Discontinued During This Encounter Medication Reason carbamide peroxide (DEBROX) 6.5 % otic solution aspirin 81 mg DISCUSSION/FOLLOW UP: Unintentional Weight Loss and Muscle Wasting Assessment: Sd has experienced a weight loss of 6 pounds since June, bringing his current weight down to 150 pounds from a previous 156 pounds. He is concerned about this unintentional weight loss and muscle wasting, despite maintaining regular exercise routines. This concern is echoed by his , who has also noticed the weight loss. Sd is questioning if this could be a consequence of his insulin therapy or his dietary habits. Plan: It is recommended that Sd increases his protein intake to potentially counteract the muscle wasting. His weight and nutritional status will continue to be monitored closely. There was no discussion about altering his insulin therapy in relation to his weight management at this time. Insulin Therapy and Blood Glucose Management Assessment: Sd reports fluctuations in his blood glucose levels, experiencing both highs and lows. He has had to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 History of Present illness Narrative Images from the original note were not included. [facility] [place] [address] OFFICE: FAX: [phone] Patient: Sd Cardozo Date of : 1960 Encounter Date: 06/06/2023 Subjective Chief Complaint Chief Complaint Patient presents with Follow-up History of Present Illness Sd Cardozo is a 63 y.o. male who has a past medical history of Hyperlipidemia, Neuromuscular disorder ([facility]), and Type 1 diabetes ([facility] Sd is an established patient last seem in office 02/13/2023 for monitoring and maintenance of diabetes mellitis type 1. Sd is able to maintain stable glucose levels. In November of 2022, was started on statin therapy, which he had not been on prior. He stopped the rosuvastatin after developing a rash. He was not sure what caused the rash as he had started two medications. Education and recommendation for statin therapy consider DM. He was in agreement to restart the medication. Sd indicates for the past 2-3 weeks glucose levels have been vacillating from highs even up to 400 and some lows <50. He felt it was more difficult to keep his glucose level in goal range of 90-180. Once glucose levels >200, seemed to stay higher for longer. He was unsure if basaglar insulin was not working as well, so he threw the pen away and started with a new pen, which seemed to control his glucose levels better. He has some numbness in feet when glucose levels >300-400. Sd indicates he had podiatry appointment with past two weeks. Plans to make eye exam appointment. Diabetes Mellitus Type I, Follow-up: Patient here [...] - 7.2%; 11/14/2022 - 7.5%; 7.0%; 02/13/2023 7.0% Home glucose levels: Average 150. Has had some up to 400s Very High range: 7% High range: 20% In Range: 68% Low range: 4 % Very low: 1% Glucose level are up and down all [...] Medical, Family, Surgery and Social History Past Surgical History: Procedure Laterality Date KIDNEY [...] on file Food Insecurity: No Food Insecurity (02/13/2023) Hunger Screening Food Insecurity - Worry: Never True Food Insecurity - Inability: Never True Transportation Needs: Not on file Physical Activity: Not on file Stress: Not on file Social Connections: Not on file Interpersonal Safety: Not on file Allergies and Current Medications No Known Allergies Current Outpatient Medications Medication Sig Dispense Refill aspirin 81 mg Take 1 tablet (81 mg total) by mouth in the morning. blood-glucose meter,continuous (DEXCOM G6 SENIOR PRODUCT ENGINEER) misc 1 Device by miscellaneous route continuously. [...] 30 UNITS PER DAY 30 mL 4 No current facility-administered medications for this visit. Review of Systems Review of Systems Constitutional: Negative for activity change, appetite change, fatigue, fever and unexpected weight change. Respiratory: Negative for cough and shortness of breath. Cardiovascular: Negative for chest pain, palpitations and leg swelling. Gastrointestinal: Negative for abdominal pain, constipation, diarrhea, nausea and vomiting. Genitourinary: Negative for difficulty urinating, frequency and urgency. Neurological: Negative for dizziness, weakness, light-headedness, numbness and headaches. Psychiatric/Behavioral: Negative for dysphoric mood and sleep disturbance. Objective: Vital Signs BP 120/76 Pulse 72 Temp 36.3 C (97.3 F) Ht 175.3 cm (5' 9.02 ) Wt 69.6 kg (153 lb 6.4 oz) SpO2 99% BMI 22.64 kg/m Physical Exam Physical Exam Vitals and nursing note reviewed. Constitutional: General: He is not in acute distress. Appearance: Normal appearance. He is well-developed, well-groomed and normal weight. HENT: Head: Normocephalic and atraumatic. Eyes: General: Lids are normal. Cardiovascular: Rate and Rhythm: Normal rate and regular rhythm. Heart sounds: Normal heart sounds, S1 normal and S2 normal. Pulmonary: Effort: Pulmonary effort is normal. No respiratory distress. Breath sounds: Normal breath sounds and air entry. No decreased breath sounds, wheezing, rhonchi or rales. Abdominal: General: There is no distension. Palpations: Abdomen is soft. Tenderness: There is no abdominal tenderness. Musculoskeletal: General: Normal range of motion. Cervical back: Full passive range of motion without pain and normal range of motion. Right foot: Normal range of motion. Left foot: Normal range of motion. Feet: Right foot: Skin integrity: No warmth. Left foot: Skin integrity: No warmth. Skin: General: Skin is warm and dry. Neurological: Mental Status: He is alert and oriented to person, place, and time. Gait: Gait normal. Psychiatric: Attention and Perception: Attention and perception normal. He is attentive. Mood and Affect: Mood and affect normal. Speech: Speech normal. Behavior: Behavior normal. Behavior is cooperative. Thought Content: Thought content normal. Cognition and Memory: Cognition and memory normal. Judgment: Judgment normal. Recent Laboratory Work and Imaging Lab Results Component Value Date WBC 8.4 09/17/2022 HGB 13.6 09/17/2022 HCT 41.3 09/17/2022 MCV 91 09/17/2022 PLT 229 09/17/2022 Lab Results Component Value Date GLU 241 (A) 02/13/2023 CALCIUM 9.7 09/17/2022 K 4.4 09/17/2022 CO2 30 09/17/2022 CL 100 09/17/2022 BUN 17 09/17/2022 CREATININE 0.98 09/17/2022 No results found for: HGBA1C Lab Results Component Value Date ALT 37 09/17/2022 AST 32 09/17/2022 ALKPHOS 71 09/17/2022 Assessment and Plan: 1. Diabetes mellitus type 1, controlled, insulin dependent ([facility]) - POCT Hemoglobin A1c - CBC auto differential; Future - Comprehensive metabolic panel; Future - Magnesium; Future - Lipid profile; Future - Microalbumin - Albumin: Creatinine Urine Ratio; Future - TSH with Reflex; Future - Vitamin D 25 hydroxy; Future - Ferritin; Future Orders Placed This Encounter Procedures CBC auto differential Comprehensive metabolic panel Magnesium Lipid profile Microalbumin - Albumin: Creatinine Urine Ratio TSH with Reflex Vitamin D 25 hydroxy Ferritin POCT Hemoglobin A1c No orders of the defined types were placed in this encounter. There are no discontinued medications. DISCUSSION/FOLLOW UP: Today discuss setting adjustments on Dexacom G6 meter. Has been experiencing some high glucose readings for longer periods of times. He indicates after changing the insulin pen, the glucose readings seemed to be better. Denies illness. He did have Covid-19 vaccination, which would not expect to affect his glucose readings. Denies problems with immunizations. Sd is going to plan to take Basaglar 12 hours apart at 6 and 6. He was talking nightly dose closer to bedtime. Continue to adjust Novolog to prevent lows. On going evaluation and education in avoiding lows <70. Lab work complete today. Follow up 3 months or sooner if needed. Total time spent was 30 minutes: Preparing to see the patient (e.g., [...] identified and corrected by editing. 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 The Day of Surgery: Arrive at [facility] Surgery Entrance at the time directed by your surgeon and check in at the desk. If you have a living will or healthcare power of consumer attorney, please bring a copy. You will be taken to the pre-op holding area where you will be prepared for surgery. A physical assessment will be performed by a nurse practitioner or housekeeper head. Your IV will be started and you [...] verbalized. 10/30/21 Colonoscopy documented in this encounter [facility] Work Phone: Evaluation + Plan note Future Appointments Appointment Date:12/27/2024 02:45:00 PM Scheduled Provider:Kim ORTIZ MD Location:[facility] Appointment Type:URO Office Visit Diagnostic Tests PendingPSA Total 12/22/23 [facility] Evaluation + Plan note Future Appointments Appointment Date:07/25/2025 01:15:00 PM Scheduled Provider:Kim ORTIZ MD Location:[facility] Appointment Type:URO Office Visit Diagnostic Tests PendingPSA Free & Total 01/24/25 [facility] Evaluation note No assessment inform ation available [facility] Work Phone: Evaluation note Diagnosis Intractable tension-type headache, unspecified chronicity pattern [facility] Impacted cerumen, right ear- Primary Diabetes mellitus type 1, controlled, insulin dependent (CMS/HCC) Acute ear pain, right Chronic sinusitis, unspecified location [facility] Type 1 diabetes mellitus with hyperglycemia (CMS-HCC)- Primary Mixed hyperlipidemia Type 1 diabetes mellitus with hyperglycemia (CMS-HCC) [facility] Diagnosis Diabetes mellitus type 1, controlled, insulin dependent (CMS-HCC)- Primary [facility] Diagnosis Otalgia of right ear- Primary [facility] Diagnosis History of elevated PSA- Primary Diabetes mellitus type 1, controlled, insulin dependent (CMS-HCC) [facility] Diagnosis Type 1 diabetes mellitus with hyperglycemia (CMS-HCC)- Primary Mixed hyperlipidemia Diabetes mellitus type 1, controlled, insulin dependent (CMS-HCC)- Primary Mixed hyperlipidemia Need for pneumococcal 20-valent conjugate vaccination [facility] Diagnosis Diabetes mellitus type 1, controlled, insulin dependent (CMS-HCC)- Primary 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 [facility] Diagnosis Diabetes mellitus type 1, controlled, insulin dependent (CMS-HCC)- Primary [facility]* Diagnosis Diabetes mellitus type 1, controlled, insulin dependent (CMS-HCC)- Primary Mixed hyperlipidemia [facility] Diagnosis Diabetes mellitus type 1, controlled, insulin dependent (CMS-HCC)- Primary Mixed hyperlipidemia Contusion of right upper extremity, initial encounter Need for shingles vaccine Need for prophylactic vaccination and inoculation against varicella [facility] Diagnosis Diabetes mellitus type 1, controlled, insulin dependent (CMS-HCC)- Primary Numbness and tingling of right arm and leg documented [facility] Diagnosis Diabetes mellitus type 1, controlled, insulin dependent (CMS-HCC)- Primary Bilateral foot pain Need for shingles vaccine Need for prophylactic vaccination and inoculation against varicella Need for immunization against influenza Need for prophylactic vaccination and inoculation against influenza [facility] Diagnosis Type 1 diabetes mellitus with hyperglycemia (CMS-HCC)- Primary Mixed hyperlipidemia Diabetes mellitus type 1, controlled, insulin dependent (CMS-HCC)- Primary Mixed hyperlipidemia Prostate cancer screening Special screening for malignant neoplasm of prostate Encounter for annual wellness visit [facility] Diagnosis Type 1 diabetes mellitus with hyperglycemia (CMS-HCC)- Primary Mixed hyperlipidemia Diabetes mellitus type 1, controlled, insulin dependent ([facility]) [facility] Diagnosis Type 1 diabetes mellitus with hyperglycemia (CMS-HCC)- Primary Mixed hyperlipidemia Diabetes mellitus type 1, controlled, insulin dependent ([facility])- Primary Mixed hyperlipidemia [facility]* Diagnosis Type 1 diabetes mellitus with hyperglycemia ([facility])- Primary Mixed hyperlipidemia Non-recurrent acute suppurative otitis media of right ear without spontaneous rupture of tympanic membrane- Primary Cerumen debris on tympanic membrane of right ear Otitis interna, right [facility] Diagnosis Type 1 diabetes mellitus with hyperglycemia ([facility])- Primary Mixed hyperlipidemia Diabetes mellitus type 1, controlled, insulin dependent ([facility])- Primary Mixed hyperlipidemia Encounter for screening for malignant neoplasm of prostate Recurrent productive cough Cough Encounter for screening for depression Recurrent productive cough Cough [facility] N[facility] No data available for this section [facility] InstructionsNot on filedocumented in this encounter [facility] filedocumented in this encounter [facility] filedocumented in this encounter [facility] on filedocumented in this encounter [facility] on filedocumented in this encounter [facility] No data available for this section [facility] reason for visit Narrative* Auth/Cert Specialty Diagnoses / Procedures Referred By Lesli t Referred To Contact Diagnoses Screen for colon cancer SCREEN FOR COLON CANCER Procedures RI COLONOSCOPY FLX DX W/COLLJ SPEC WHEN PFRMD RI COLONOSCOPY W/BIOPSY SINGLE/MULTIPLE RI COLSC FLX W/RMVL OF TUMOR POLYP LESION SNARE TQ COLORECTAL CANCER SCREENING, NOT HIGH RISK Colton Romero MD [address] [place] [address] [employer] [address] [place] [address] Referral ID Status Reason Start Date Expiration Date Visits Re quested Visits Authorized 1 1 [facility] Phone: Advance Directives No Advanced Directives Records FoundDocuments on File Type Date Recorded Patient Winder Hand Expl anation Advance Directives and Living Will Power of Chief Radiology Latest Code Status on File Code Status Date Activated Date Inactivated Comments Full Code 08/06/2016 12:55 PM 08/08/2016 11:55 AM Full Code 09/28/2013 3:25 PM 09/29/2013 8:00 PM Documents on File Type Date Recorded Patient Winder Hand Expl anation ACP-Advance Directive ACP-Power of Chief Radiology Documents on File Type Date Recorded Patient Winder Hand Expl anation ACP-Advance Directive ACP-Power of Chief Radiology Latest Code Status on File Code Status Date Activated Date Inactivated Comments Full Code 08/06/2016 12:55 PM 08/08/2016 11:55 AM Full Code 09/28/2013 3:25 PM 09/29/2013 8:00 PM Advance Directive Response Recorded Date/ Time Advance Directives No September 14 12:45pm Latest Code Status on File Code Status Date Activated Date Inactivated Comments Full Code 11/26/2022 3:41 AM 11/26/2022 7:24 PM Code Status History Code Status Date Activated Date Inactivated Comments Full Code 08/06/2016 12:55 PM 08/08/2016 11:55 AM Full Code 09/28/2013 3:25 PM 09/29/2013 8:00 PM Discharge Instructions * Attachments The following attachments cannot be sent through Care Everywhere. * Urinary Retention ([place]) documented in this encounter* Instructions* Freddie Feliz DO - 09/11/2019 Please take all medications [...] be sent through Care Everywhere. * Constipation ([place]) documented in this encounter* Attachments The following attachments cannot be sent through Care Everywhere. * Abrasions ([place]) documented in this encounter Assessments Diagnosis Urinary retention Retention of urine, unspecified Diagnosis Abdominal pain, right lower quadrant Constipation, unspecified constipation type Diagnosis Abrasion of left lower extremity, initial encounter- Primary Summary Purpose Family History No Family History Records FoundNo Family History Records FoundNo Family History Records FoundNo Family History Records FoundNo Family History Records FoundNo Family History Records Found No data available for this section No Family History Records FoundNo Family History Records Found No data available for this section No Family History Records FoundNo Family History Records Found Chief Complaint and Reason for Visit Chief Complaint r97.20 Reason for Referral Specialty Diagnoses / Procedures Referred By Contac t Referred To Contact Radiology Diagnoses Intractable tension-type headache, unspecified chronicity pattern Procedures CT HEAD [place]jandro [place]ña [place] [address] [place] [address] Referral ID Status Reason Start Date Expiration Date V isits Requested Visits Authorized [id number] Pending Review 12/16/2023 12/15/2024 1 1 Specialty Diagnoses / Procedures Referred By Contac t Referred To Contact Diagnoses Diabetes mellitus type 1, controlled, insulin dependent ([facility]) Chani Weinberg, CHILD SUPPORT INVESTIGATOR-JUNIOR NETWORK ADMINISTRATOR [address] [place] [address] Referral ID Status Reason Start Date Expiration Date Visits Re quested Visits Authorized [id number] Denied 1 1 Referral ID Status Reason Start Date Expiration Date V isits Requested Visits Authorized [id number] Pending Review 1 1 Additional Source Comments Reason for Visit (unrecogniz ed section and content) Reason Comments Abdominal Pain RLQ Reason Comments Abdominal Pain Reason Comments Leg Injury left Fall Specialty Diagnoses / Procedures Referred By Contac t Referred To Contact Radiology Diagnoses Intractable tension-type headache, unspecified chronicity pattern Procedures CT HEAD [place]jandro [place]ña [place] [address] [place] [address] Referral ID Status Reason Start Date Expiration Date V isits Requested Visits Authorized [id number] Pending Review 12/16/2023 12/15/2024 1 1 Reason Comments Earache One week ear ache ri ght ear, painful to touch and feels like theres fluid behind it Reason Comments Med Refill Reason Comments Follow-up Reason Comments Earache Right ear pain x 1 w quileute denies drainage/ blood, uses q tips rarely denies ear plug usage, no drops Reason Comments Follow-up Reason Comments Medication Reaction Change in intake of insulin.am 3-4 units, get work reading show 300 no changes. 2-3 units more a day to get levels to go down. Reason Comments Follow-up Diabetes Diabetes Reason Comments Hand Pain Tingling x3 days in right hand going up to elbow. Taking Asprin and mucus le relaxer Reason Comments Annual Exam Reason Comments Diabetes Reason Comments Earache Rt ear x 2days stabb ing pain (unrecognized sect ion and content) No Status Records FoundNo Status Records FoundNo Status Records FoundNo Status Records FoundNo Status Records FoundNo Status Records FoundNo Status Records FoundNo Status Records FoundNo Status Records FoundNo Status Records Found INFORMATION SOURCE (unrecogn ized section and content) DATE CREATED AUTHOR 04/29/2020 [facility] DATE CREATED AUTHOR AUTHOR'S ORGANIZ ATION 11/26/2020 [facility] DATE CREATED AUTHOR AUTHOR'S ORGANIZ ATION 10/14/2021 [facility] DATE CREATED AUTHOR AUTHOR'S ORGANIZ ATION 08/10/2022 [facility] DATE CREATED AUTHOR AUTHOR'S ORGANIZ ATION 10/08/2023 [facility] DATE CREATED AUTHOR AUTHOR'S ORGANIZ ATION 12/19/2023 [place] DATE CREATED AUTHOR AUTHOR'S ORGANIZ ATION 04/27/2024 [facility] DATE CREATED AUTHOR AUTHOR'S ORGANIZ ATION 06/03/2024 [facility] DATE CREATED AUTHOR AUTHOR'S ORGANIZ ATION 01/25/[address] [facility] DATE CREATED AUTHOR AUTHOR'S ORGANIZ ATION 01/29/2025 [facility] Care Teams (unrecognized sec tion and content) Mold Maintenance Technician Relationship Specialty Start Date End Date Alejandro mUaña [address] [address] PCP - General Family Medicine 09/03/19 Mold Maintenance Technician Relationship Specialty Start Date End Date Alejandro Umaña [address] [address] PCP - General Family Medicine 09/03/19 Mold Maintenance Technician Relationship Specialty Start Date End Date Alejandro Umaña [address] [address] PCP - General Family Medicine 09/03/19 Team Status: Active Member Role Status Dates Alejandro Umaña MD Primary Care Provider Active Team Status: Inactive Member Role Status Kim Ortiz MD Attending Provider Active St art: October 03, 2023 End: October 03, 2023 Alejandro Umaña MD Primary Care Provider Active Start: October 03, 2023 End: October 03, 2023 Mold Maintenance Technician Relationship Specialty Start Date End Date Alejandro Umaña MD PCP - General Family Medicine 09/03/19 Mold Maintenance Technician Relationship Specialty Start Date [place] [address] [address] PCP - General Family Medicine 11/27/22 [place] [address] [address] PCP - Medical [place] [employer] 06/16/15 06/15/99 Mold Maintenance Technician Relationship Specialty Start [place] [address] [address] [place] [address] PCP - General Family Medicine 11/27/22 [place] [address] [place] [address] PCP - Medical [place] [employer] 06/16/15 06/15/99 Mold Maintenance Technician Relationship Specialty Start Date End Date Chani Weinberg APRN-[facility] [address] [place] [address] PCP - General Family Medicine 09/17/22 Mold Maintenance Technician Relationship Specialty Start Date End Date Chani Weinberg APRN-JUNIOR NETWORK ADMINISTRATOR [address] [place] [address] PCP - General Family Medicine 09/17/22 Mold Maintenance Technician Relationship Specialty Start Date End Date Chani Weinberg APRN-JUNIOR NETWORK ADMINISTRATOR [address] [place] [address] PCP - General Family Medicine 09/17/22 Mold Maintenance Technician Relationship Specialty Start Date End Date Chani Weinberg APRN-JUNIOR NETWORK ADMINISTRATOR [address] [place] [address] PCP - General Family Medicine 09/17/22 Mold Maintenance Technician Relationship Specialty Start Date End Date Chani Weinberg APRN-JUNIOR NETWORK ADMINISTRATOR [address] [place] [address] PCP - General Family Medicine 09/17/22 Mold Maintenance Technician Relationship Specialty Start Date End Date Chani Weinberg APRN-JUNIOR NETWORK ADMINISTRATOR [address] [place] [address] PCP - General Family Medicine 09/17/22 Mold Maintenance Technician Relationship Specialty Start Date End Date [facility] [address] [place] [address] PCP - General Family Medicine 09/17/22 Mold Maintenance Technician Relationship Specialty Start Date End Date [facility] [address] [place] [address] PCP - General Family Medicine 09/17/22 Mold Maintenance Technician Relationship Specialty Start Date End Date [facility] [address] [place] [address] PCP - General Family Medicine 09/17/22 Mold Maintenance Technician Relationship Specialty Start Date End Date Chani Weinberg APRN-JUNIOR NETWORK ADMINISTRATOR [address] [place] [address] PCP - General Family Medicine 09/17/22 Mold Maintenance Technician Relationship Specialty Start Date End Date Chani Weinberg APRN-JUNIOR NETWORK ADMINISTRATOR [address] [place] [address] PCP - General Family Medicine 09/17/22 Mold Maintenance Technician Relationship Specialty Start Date End Date Chani Weinberg APRN-CNP [address] [place] [address] PCP - General Family Medicine 09/17/22 Mold Maintenance Technician Relationship Specialty Start Date End Date [facility] [address] [place] [address] PCP - General Family Medicine 09/17/22 Mold Maintenance Technician Relationship Specialty Start Date [place]jandro [place]ña [place] [address] [place] [address] PCP - General Family Medicine 11/27/22 [place] [address] [place] [address] PCP - Medical [facility] 06/16/15 06/15/99 Mold Maintenance Technician Relationship Specialty Start Date End Date Chani Weinberg, CHILD SUPPORT INVESTIGATOR-JUNIOR NETWORK ADMINISTRATOR [address] [place] [address] PCP - General Family Medicine 09/17/22 Continuous Active and Recently Administ ered Medications (unrecognized section and content) Medication Order 10/28/2021 10/29/2021 10/30/2021 0.9 % sodium chloride infusion (CANCELED) IntraVENous, at 125 mL/hr, CONTINUOUS, Starting on Fri10/30/21 at 1130, Pre-op (day of surgery) 1139 (New Bag - Prov ider: Mira Varela RN)1203 (Paused - Provider: Jeanne Reyes CHILD SUPPORT INVESTIGATOR - CHISEL GRINDER - Comment: Switch to gravity)1204 (Restarted - Provider: Jeanne Reyes CHILD SUPPORT INVESTIGATOR - CHISEL GRINDER)1247 (Anesthesia Volume Adjustment - Provider: Jeanne Reyes CHILD SUPPORT INVESTIGATOR - CHISEL GRINDER)1352 (Stopped - Provider: Juju Knapp RN) Goals (unrecognized section and content) Goals may be documented in a n alternate section No data available for this sectionNot on filedocumented as of this encounterNot on filedocumented as of this encounterNot on filedocumented as of this encounterNot on filedocumented as of this encounterNot on filedocumented as of this encounterNot on filedocumented as of this encounterNot on filedocumented as of this encounterNot on filedocumented as of this encounterNot on filedocumented as of this encounterNot on filedocumented as of this encounterNot on filedocumented as of this encounterNot on filedocumented as of this encounterNot on filedocumented as of this encounterNot on filedocumented as of this encounterNot on filedocumented as of this encounterNot on filedocumented as of this encounterNot on filedocumented as of this encounter No data available for this sectionNot on filedocumented as of this encounter FOR RECORDS PERTAINING TO PATIENTS WHO ARE [...] BE BASED ON THE PRIMARY CLINICAL RECORDS. [facility] provides no warranty or guarantee of the accuracy or completeness of information in this document.
--- NOTE | 2025-03-26 14:06 | US_ITS ---
The [place] [id number] Patient Name: ARVIND LAYTON MRN: [id number] date: 1960 Sex: M Assigned Patient Location: US Current Patient Location: US Accession/Order Number: [id number] Exam Date: 03/26/2025 14:07 Report Date: 03/26/2025 15:49 At the request of: RAFAELA REYES Procedure: US renal BI BILATERAL RENAL AND BLADDER ULTRASOUND CLINICAL HISTORY: Kidney stone right-sided flank pain COMPARISON: None Estimation of renal size is approximately 10.5 x 5.5 x 4.3 cm on the right and 9.9 x 5.3 x 4.8 cm on the left. No contour deforming mass, shadowing stone or hydronephrosis. The urinary bladder is partially distended with a volume of 218.1 ml. No shadowing stone or focal lesion. US/US renal BI IMPRESSION: NO OBSTRUCTIVE UROPATHY. Impression dictated by: Bill Jade M.D. 03/26/2025 3:49 PM Dictation Location: [place] [address] Electronically authenticated by: [id number] Y Date: 03/26/2025 15:49
--- NOTE | 2025-03-26 14:06 | XR_ITS ---
The [address] [address] Patient Name: ARVIND LAYTON MRN: [id number] date: 1960 Sex: M Assigned Patient Location: US Current Patient Location: US Accession/Order Number: [id number] Exam Date: 03/26/2025 14:20 Report Date: 03/26/2025 15:51 At the request of: RAFAELA REYES Procedure: XR abdomen 1V KUB INDICATION: Kidney stone, right-sided flank pain COMPARISON: Ultrasound 03/26/2025 FINDINGS: Cxtm-[id number] stool burden. Nonspecific nonspecific bowel gas pattern. No radiopaque calcifications overlying the renal shadows or the psoas muscles. Osseous structures are noncontributory. XR/XR abdomen 1V IMPRESSION: No radiopaque calculi identified. Impression dictated by: Bill Jade M.D. 03/26/2025 3:51 PM Dictation Location: [place] [address] Electronically authenticated by: [id number] Y Date: 03/26/2025 15:51
== END 2025-03-26 14:02 | disposition home or self-care (01) ==
LOC: US 14:02
PROVIDERS: PCP Family Medicine; Visit Provider Student in an Organized Health Care Education/Training Program
DX: N20.0 Calculus of kidney (principal)
CPT/HCPCS: 74018; 76775

== ENCOUNTER 2025-03-27 21:11 | Emergency (ER) | payer OTHER, SELFPAY ==
[2025-03-27 21:15] VITALS: BP 181/108; PULSE 88; TEMP 36.4; O2SAT 97; BMI 22.2
--- OUTSIDE RECORDS SUMMARY | 2025-03-27 21:18 | XMS_ITS | CCD ---
Author Organization [facility] Care Team Providers Care [employer] Clerk Name Role Phone Alejandro Umaña Primary Care Provider [phone] ADA AKHTAR Referring Unavailable ALEJANDRO UMAÑA Primary Care Unavailable Alejandro Umaña Primary Care Provider ANGELIQUE ., DR ALVAREZ Admitting Unavailable ANGELIQUE ., DR ALVAREZ Attending Unavailable ANGELIQUE ., DR ALVAREZ Consulting Unavailable MD Kim Ortiz Attending Provider MD Alejandro Umaña Primary Care Provider Alejandro Umaña Primary Care Unavailable Kim Ortiz Attending Unavailable Kim Ortiz Admitting Unavailable Alejandro Umaña MD Primary Care Provider ALEJANDRO UMAÑA Attending Unavailable ALEJANDRO UMAÑA Referring [...] Unavailable Alejandro Umaña MD Primary Care Provider [phone] Alejandro Umaña MD Unavailable ALEJANDRO UMAÑA Attending Unavailable PRATIMA CORTES Attending Unavailable Chani Connelly Primary Care Provider [employer] 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, Chani M Primary Care Provider Kim ORTIZ [...] (1 source) MITE EXTRACT Drug Allergy 6 [facility] (7 sources) MITE EXTRACT Drug Allergy 6 [place], [place] (17 sources) house dust allergenic extract; Translations: [HOUSE DUST] Drug Allergy 4 [facility] (6 sources) House dust mite Propensity to adverse reactions 6 [facility] Healthcare Medications Current Medications Medication Drug Class(es) Dates Sig (Normalized) Sig (Original) [id number] actuat albuterol 0.09 mg/actuat metered dose [...] aspirin 81 mg delayed release oral tablet (14 sources) Platelet Aggregation Inhibitor, Nonsteroidal Anti-inflammatory Drug [...] Repeat number: 1 blood-glucose meter,continuous (DEXCOM G6 DECISION UNIT RN) misc (18 sources) Start: 09-17-2022 blood-glucose meter,continuous (DEXCOM G6 DECISION UNIT RN) misc Indications: Diabetes mellitus type 1, controlled, insulin dependent ([facility]) 1 Device by miscellaneous route continuously. 1 each 09/17/2022 Active Start: 09-17-2022 blood-glucose meter,continuous (DEXCOM G6 DECISION UNIT RN) misc Indications: Diabetes mellitus type 1, controlled, insulin dependent ([facility]) 1 Device by miscellaneous route continuously. 1 each 0 09/17/2022 Active blood-glucose meter,continuous (DEXCOM G7 DECISION UNIT RN) misc (12 sources) blood-glucose meter,continuous (DEXCOM G7 DECISION UNIT RN) misc Inject 1 each under the skin every 10 days. Active blood-glucose sensor (DEXCOM G6 SENSOR) device (18 sources) Start: 09-17-2022 blood-glucose sensor (DEXCOM G6 SENSOR) device Indications: Diabetes mellitus type 1, controlled, insulin dependent ([facility]) 1 each by miscellaneous route every 10 days. 10 each 09/17/2022 Active blood-glucose transmitter (DEXCOM G6 TRANSMITTER) device (18 sources) Start: 09-17-2022 blood-glucose transmitter (DEXCOM G6 TRANSMITTER) device Indications: Diabetes mellitus type 1, controlled, insulin dependent ([facility]) 1 Device by miscellaneous route every 3 (three) months. 1 each 09/17/2022 Active chondroitin sulfates 1200 mg / glucosamine sulfate 1500 mg oral capsule (20 sources) take 1 capsule by mouth once daily Glucosamine-Chondroitin 500-400 MG capsule Take 1 capsule by mouth 1 (one) time each day. Active glucosamine-magdaleno droitin 500-400 mg capsule Take by mouth. Active Glucosamine-Magdaleno droitin (GLUCOSAMINE CHONDR COMPLEX PO) Take by mouth 0 Active Continuous Blood Gluc Sensor (Dexcom G6 Sensor) misc (6 sources) Continuous Blood Gluc Sensor (Dexcom G6 Sensor) misc Active docusate sodium 100 mg oral capsule (7 sources) Start: 09-11-2019 take 1 capsule by mouth twice daily docusate sodium (COLACE) 100 MG capsule Take 1 capsule by mouth 2 times daily 30 capsule 0 09/11/2019 Active fluticasone propionate 0.05 mg/actuat metered dose nasal spray (6 sources) Corticosteroid take 1 spray(s) nasal route [...] Diabetes mellitus type 1, controlled, insulin dependent ([facility]) 8 units in morning and 5-8 units in evening 10/26/2024 Active Start: 12-22-2023 Tresiba FlexTo uch 100 units/mL subcutaneous solution Refills(s) 0 Start Date: 12/22/23 Status: Ordered Repeat number: 1 Start: 10-16-2023 End: 10-26-2024 inject 14-16 [IU] by subcutaneous injection in the morning Tresiba FlexTouch 100 UNIT/ML injection INJECT 14 TO 16 UNITS UNDER THE SKIN IN THE MORNING 10/16/2023 Active Start: 10-16-2023 End: 10-02-2024 insulin degludec (TRESIBA U- 100 INSULIN) 100 unit/mL solution Indications: Diabetes mellitus type 1, controlled, insulin dependent (CMS-HCC) Inject 14-16 Unit under the skin in the morning. 30 mL 1 10/16/2023 10/02/2024 Discontinued Start: 09-04-2023 End: 10-16-2023 insulin degludec (TRESIBA FLEXTOUCH U-100) 100 unit/mL (3 mL) insulin pen Indications: Diabetes mellitus type 1, controlled, insulin dependent ([facility]) Inject 16 Units under the skin in the morning. 6 mL 09/04/2023 10/16/2023 Discontinued (Reorder) 3 ml insulin glargine 100 unt/ml pen injector (18 sources) Insulin Analog Start: 11-14-2022 End: 09-04-2023 [...] Indications: Type 1 diabetes mellitus with hyperglycemia ([facility]) Inject 10 Units under the skin [...] separately for accuracy) 0 Active Insulin Lispro (10 sources) Insulin Analog Insulin Lispro ( HUMALOG [...] loratadine 10 mg oral tablet (20 sources) take 1 tablet by mouth in the morning loratadine (Claritin) 10 MG tablet Take 1 tablet by mouth in the morning. Active meclizine hydrochloride 25 mg oral tablet (7 sources) Antiemetic Start: 11-26-2022 take 1 tablet [...] 0 Active ondansetron 4 mg oral tablet (6 sources) Serotonin-3 Receptor Antagonist Start: 12-16-2023 take 1 tablet by mouth at bedtime ondansetron (Zofran) 4 MG tablet Indications: Acute intractable tension-type headache Take 1 tablet (4 mg) by mouth at bedtime 30 tablet 12/16/2023 Active polymyxin b 66157 unt/ml / trimethoprim 1 mg/ml ophthalmic solution [...] daily 30 capsule 0 09/03/2019 Active therapeutic multivitamin-light out examiner als (Theragran-M) tablet (6 sources) take 1 tablet by mouth in [...] ointment (4 sources) Corticosteroid Start: 07-10-2023 End: 10-06-2023 clobetasoL (TEMOVATE) 0.05 % ointment Indications: Allergic [...] cough] 01-27-2025 Episodic Other upper respiratory infections (7 sources) Chronic sinusitis; Translations: [Chronic sinusitis, unspecified] [...] Test Name Value Interpretation Reference Range Facility US RENAL BIon 03-26-2025 [place] [address] Ultrasound Report Signed Patient: SD CARDOZO MR#: [id number] : 1960 Acct:[id number] Age/Sex: 64 / M ADM Date: 03/26/25 Loc: US Attending Dr: Rafaela REYES Ordering Physician: Rafaela Vance Date of Service: 03/26/25 Procedure(s): US renal BI Accession Number(s): [id number] cc: ALEJANDRO UMAÑA ; Rafaela Vance [address] [address] Patient Name: SD CARDOZO MRN: [id number]:[id number] date: 1960 Sex: M Assigned Patient Location: US Current Patient Location: US Accession/Order Number: [id number] Exam Date: 03/26/2025 14:07 Report Date: 03/26/2025 15:49 At the request of: RAFAELA REYES Procedure: US renal BI BILATERAL RENAL AND BLADDER ULTRASOUND CLINICAL HISTORY: Kidney stone right-sided flank pain COMPARISON: None Estimation of renal size is approximately 10.5 x 5.5 x 4.3 cm on the right and 9.9 x 5.3 x 4.8 cm on the left. No contour deforming mass, shadowing stone or hydronephrosis. The urinary bladder is partially distended with a volume of 218.1 ml. No shadowing stone or focal lesion. US/US renal BI IMPRESSION: NO OBSTRUCTIVE UROPATHY. Impression dictated by: Bill Jade M.D. 03/26/2025 3:49 PM Dictation Location: [place] [address] Electronically authenticated by: [id number] Y Date: 03/26/2025 15:49 Dictated By: Bill Jade M.D. Signed By: 03/26/25 1551 DD/ 1549 TD/TT: Clod Puller: [facility] Radiology, Radiologist, MD - 03/26/2025 [place] [address] Ultrasound Report Signed Patient: SD CARDOZO MR#: [id number] : 1960 Acct:[id number] Age/Sex: 64 / M ADM Date: 03/26/25 Loc: US Attending Dr: Rafaela REYES Ordering Physician: Rafalea Vance Date of Service: 03/26/25 Procedure(s): US renal BI Accession Number(s): [id number] cc: ALEJANDRO UMAÑA ; Rafaela Vance [place] [id number] Patient Name: SD CARDOZO MRN: [facility]:[id number] date: 1960 Sex: M Assigned Patient Location: US Current Patient Location: US Accession/Order Number: [id number] Exam Date: 03/26/2025 14:07 Report Date: 03/26/2025 15:49 At the request of: RAFAELA REYES Procedure: US renal BI BILATERAL RENAL AND BLADDER ULTRASOUND CLINICAL HISTORY: Kidney stone right-sided flank pain COMPARISON: None Estimation of renal size is approximately 10.5 x 5.5 x 4.3 cm on the right and 9.9 x 5.3 x 4.8 cm on the left. No contour deforming mass, shadowing stone or hydronephrosis. The urinary bladder is partially distended with a volume of 218.1 ml. No shadowing stone or focal lesion. US/US renal BI IMPRESSION: NO OBSTRUCTIVE UROPATHY. Impression dictated by: Bill Jade M.D. 03/26/2025 3:49 PM Dictation Location: [place] [address] Electronically authenticated by: [id number] Y Date: 03/26/2025 15:49 Dictated By: Bill Jade M.D. Signed By: 03/26/25 1550 DD/ 1549 TD/TT: Clod Puller: [facility] Radiology Study observation (narrative) [facility] RENAL BIOrdered By: [employer] logist Radiology on 03-26-2025 [facility] [employer] Work Phone: XR ABDOMEN 1Von 03-26-2025 [place] [address] XRay Report Signed Patient: SD CARDOZO MR#: [id number] : 1960 Acct:[id number] Age/Sex: 64 / M ADM Date: 03/26/25 Loc: Attending Dr: Rafaela REYES Ordering Physician: Rafaela Vance Date of Service: 03/26/25 Procedure(s): XR abdomen 1V Accession Number(s): [id number] cc: ALEJANDRO UMAÑA ; Rafaela Vance [place] [phone] Patient Name: SD CARDOZO MRN: [id number] date: 1960 Sex: M Assigned Patient Location: US Current Patient Location: US Accession/Order Number: [id number] Exam Date: 03/26/2025 14:20 Report Date: 03/26/2025 15:51 At the request of: RAFAELA REYES Procedure: XR abdomen 1V KUB INDICATION: Kidney stone, right-sided flank pain COMPARISON: Ultrasound 03/26/2025 FINDINGS: Ssbk-gn-kvoyoqox stool burden. Nonspecific nonspecific bowel gas pattern. No radiopaque calcifications overlying the renal shadows or the psoas muscles. Osseous structures are noncontributory. XR/XR abdomen 1V IMPRESSION: No radiopaque calculi identified. Impression dictated by: Bill Jade M.D. 03/26/2025 3:51 PM Dictation Location: [place] [address] Electronically authenticated by: [id number] Y Date: 03/26/2025 15:51 Dictated By: Bill Jade M.D. Signed By: 03/26/251552 DD/ 50 TD/TT: Clod Puller: [facility] Radiology, Radiologist, MD - 03/26/2025 [place] [address] XRay Report Signed Patient: SD CARDOZO MR#: [id number] : 1960 Acct:[id number] Age/Sex: 64 / M ADM Date: 03/26/25 Loc: Attending Dr: Rafaela REYES Ordering Physician: Rafaela Vance Date of Service: 03/26/25 Procedure(s): XR abdomen 1V Accession Number(s): [id number] cc: ALEJANDRO UMAÑA ; Rafaela Vance [place] [phone] Patient Name: SD CARDOZO MRN: [facility]:[id number] date: 1960 Sex: M Assigned Patient Location: Current Patient Location: US Accession/Order Number: [id number] Exam Date: 03/26/2025 14:20 Report Date: 03/26/2025 15:51 At the request of: RAFAELA REYES Procedure: XR abdomen 1V KUB INDICATION: Kidney stone, right-sided flank pain COMPARISON: Ultrasound 03/26/2025 FINDINGS: Erfi-km-jqtryytq stool burden. Nonspecific nonspecific bowel gas pattern. No radiopaque calcifications overlying the renal shadows or the psoas muscles. Osseous structures are noncontributory. XR/XR abdomen 1V IMPRESSION: No radiopaque calculi identified. Impression dictated by: Bill Jade M.D. 03/26/2025 3:51 PM Dictation Location: [place] [address] Electronically authenticated by: [id number] Y Date: 03/26/2025 15:51 Dictated By: Bill Jade M.D. Signed By: 03/26/251552 DD/ 50 TD/TT: Clod Puller: [facility] [employer] Radiology Study observation (narrative) [facility] [employer] XR ABDOMEN 1VOrdered By: Jamal iologwilliam Radiology on 03-26-2025 [facility]: CBC WITH AUTO DIFFERENTIALon 01-27-2025 BASOPHILS ABSOLUTE COUNT (10*3/UL) BY AUTOMATED COUNT 0.1 10*3/uL Normal 0.0-0.2 [facility] Comment on above: Performed By: #### C BCA #### [facility] ([facility] [address] [place] [address] VIR BASOPHILS RELATIVE PERCENT BY AUTOMATED COUNT 1.0 % Normal [facility] Comment on above: Performed By: #### C BCA #### [facility] ([facility] [address] [place] [address] VIR CELLAVISION DIFFERENTIAL TYPE AUTOMATED DIFFERENTIAL Normal [facility] Comment on above: Performed By: #### C BCA #### [facility] ([facility] [address] [place] [address] VIR Eosinophils (Bld) [#/Vol] 0.2 10*3/uL Normal 0.0-0.4 [facility] Comment on above: Performed By: #### C BCA #### [facility] ([facility] [address] [place] [address] VIR EOSINOPHILS RELATIVE PERCENT BY AUTOMATED COUNT 2.6 % Normal [facility] Comment on above: Performed By: #### C BCA #### [facility] ([facility] [address] [place] [address] VIR Erythrocyte distribution width (RBC) [Ratio] 13.1 % Normal 11.5-15 [facility] Comment on above: Performed By: #### C BCA #### [facility] ([facility] [address] [place] [address] VIR Hematocrit (Bld) [Volume fraction] 41.3 % Normal 39-50 [facility] Comment on above: Performed By: #### C BCA #### [facility] ([facility] [address] [place] [address] VIR Hemoglobin (Bld) [Mass/Vol] 13.9 g/dL Normal 13-17 [facility] Comment on above: Performed By: #### C BCA #### [facility] ([facility] [address] [place] [address] VIR LYMPHOCYTES ABSOLUTE COUNT (10*3/UL) BY AUTOMATED COUNT 1.6 10*3/uL Normal 1.0-3.5 [facility] Comment on above: Performed By: #### C BCA #### [facility] ([facility] [address] [place] [address] VIR LYMPHOCYTES RELATIVE PERCENT BY AUTOMATED COUNT 19.0 % Normal [facility] Comment on above: Performed By: #### C BCA #### [facility] ([facility] [address] [place] [address] VIR MCH (RBC) [Entitic mass] 30.8 pg Normal 27-34 [facility] Comment on above: Performed By: #### C BCA #### [facility] ([facility] [address] [place] [address] VIR MCHC (RBC) [Mass/Vol] 33.7 g/dL Normal 32-36 [facility] Comment on above: Performed By: #### C BCA #### [facility] ([facility] [address] [place] [address] VIR MCV (RBC) [Entitic vol] 91 fL Normal 80-100 [facility] Comment on above: Performed By: #### C BCA #### [facility] ([facility] [address] [place] [address] VIR MONOCYTES ABSOLUTE COUNT (10*3/UL) BY AUTOMATED COUNT 0.6 10*3/uL Normal 0.0-0.9 [facility] Comment on above: Performed By: #### C BCA #### [facility] ([facility] [address] [place] [address] VIR MONOCYTES RELATIVE PERCENT BY AUTOMATED COUNT 7.2 % Normal [facility] Comment on above: Performed By: #### C BCA #### [facility] ([facility] [address] [place] [address] VIR NEUTROPHILS ABSOLUTE COUNT BY AUTOMATED COUNT 6.0 10*3/uL Normal 1.5-6.6 [facility] Comment on above: Performed By: #### C BCA #### [facility] ([facility] [address] [place] [address] VIR NEUTROPHILS RELATIVE PERCENT BY AUTOMATED COUNT 70.2 % Normal [facility] Comment on above: Performed By: #### C BCA #### [facility] ([facility] [address] [place] [address] VIR Platelet mean volume (Bld) [Entitic vol] 8.8 fL Normal 7-12 [facility] Comment on above: Performed By: #### C BCA #### [facility] ([facility] [address] [place] [address] VIR Platelets (Bld) [#/Vol] 189 10*3/uL Normal 150-450 [facility] Comment on above: Performed By: #### C BCA #### [facility] ([facility] [address] [place] [address] VIR RBC COUNT 4.52 X10E12/L Normal 4.1-5.7 [facility] Comment on above: Performed By: #### C BCA #### [facility] ([facility] [address] [place] [address] VIR WBC (Bld) [#/Vol] 8.5 10*3/uL Normal 4-11 [facility] Comment on above: Performed By: #### C BCA #### [facility] ([facility] [address] [place] [address] VIR COMPREHENSIVE METABOLIC PANE Shant 01-27-2025 Albumin [Mass/Vol] 4.2 g/dL Normal 3.2-5.3 [facility] Comment on above: Performed By: #### C MP #### [facility] ([facility] [address] [place] [address] VIR ALP [Catalytic activity/Vol] 86 U/L Normal 39-130 [facility] Comment on above: Performed By: #### C MP #### [facility] ([facility] [address] [place] [address] VIR ALT [Catalytic activity/Vol] 27 U/L Normal <=40 [facility] Comment on above: Performed By: #### C MP #### [facility] ([facility] [address] [place] [address] VIR Anion gap [Moles/Vol] 10 mmol/L Normal 5-15 [facility] Comment on above: Performed By: #### C MP #### [facility] ([facility] [address] [place] [address] VIR AST [Catalytic activity/Vol] 22 U/L Normal <=41 [facility] Comment on above: Performed By: #### C MP #### [facility] ([facility] [address] [place] [address] VIR Bilirubin [Mass/Vol] 0.4 mg/dL Normal 0.3-1.2 [facility] Comment on above: Performed By: #### C MP #### [facility] ([facility] [address] [place] [address] VIR Calcium [Mass/Vol] 9.3 mg/dL Normal 8.5-10.5 [facility] Comment on above: Performed By: #### C MP #### [facility] ([facility] [address] [place] [address] VIR Chloride [Moles/Vol] 101 mmol/L Normal 98-109 [facility] Comment on above: Performed By: #### C MP #### [facility] ([facility] [address] [place] [address] VIR CO2 [Moles/Vol] 29 mmol/L Normal 22-32 [facility] Comment on above: Performed By: #### C MP #### [facility] ([facility] [address] [place] [address] VIR Creatinine [Mass/Vol] 0.96 mg/dL Normal 0.60-1.30 [facility] Comment on above: Result Comment: METH OD TRACEABLE TO IDMS STANDARD Performed By: #### C MP #### [facility] ([facility] [address] [place] [address] VIR GFR/1.73 sq M.predicted among non-blacks MDRD (S/P/Bld) [Vol rate/Area] 89 mL/min/{1.73_m2} Normal >=60 [facility] Comment on above: Result Comment: Repo rted eGFR is based on the CKD-EPI 2020 equation that does not use a race coefficient. Performed By: #### C MP #### [facility] ([facility] [address] [place] [address] VIR Glucose [Mass/Vol] 177 mg/dL High 65-99 [facility] Comment on above: Performed By: #### C MP #### [facility] ([facility] [address] [place] [address] VIR Potassium [Moles/Vol] 4.7 mmol/L Normal 3.5-5.0 [facility] Comment on above: Performed By: #### C MP #### [facility] ([facility] [address] [place] [address] VIR Protein [Mass/Vol] 7.0 g/dL Normal 6.0-8.0 [facility] Comment on above: Performed By: #### C MP #### [facility] ([facility] [address] [place] [address] VIR Sodium [Moles/Vol] 140 mmol/L Normal 134-146 [facility] Comment on above: Performed By: #### C MP #### [facility] ([facility] [address] [place] [address] VIR Urea nitrogen [Mass/Vol] 18 mg/dL Normal 5-27 [facility] Comment on above: Performed By: #### C MP #### [facility] ([facility] [address] [place] [address] VIR FERRITINon 01-27-2025 Ferritin [Mass/Vol] 107 ng/mL Normal 24-336 [facility] Comment on above: Performed By: #### F ERR #### [facility] ([facility] [address] [place] [address] VIR HEMOGLOBIN A1Con 01-27-2025 Glucose [Mass/Vol] 151 mg/dL Normal [facility] Comment on above: Performed By: #### H A1C #### [facility] ([facility] [address] [place] [address] VIR HbA1c (Bld) [Mass fraction] 6.9 % High 4.4-5.6 [facility] [facility] Comment on above: Result Comment: ADA Guidelines Result HgbA1c Normal : less than 5.7 % Prediabetes : 5.7 % to 6.4 % Diabetes : > 6.4 % Use with caution in patients with abnormal hemoglobin variants as the half-life of red blood cells and in vivo glycation rates are affected. Performed By: #### H A1C #### [facility] ([facility]) [address] [place] [address] VIR LIPID PROFILEon 01-27-2025 Cholesterol [Mass/Vol] 143 mg/dL Low 150-200 [facility] Comment on above: Performed By: #### L IPR #### [facility] ([facility] [address] [place] [address] VIR Cholesterol in HDL [Mass/Vol] 69 mg/dL Normal >39 [facility] Comment on above: Result Comment: HDL <40 mg/dL - High Risk HDL > or = 40mg/dL- Desirable HDL >60 mg/dL - Negative Risk Performed By: #### L IPR #### [facility] ([facility] [address] [place] [address] VIR Cholesterol in LDL [Mass/Vol] 60 mg/dL Normal <130 [facility] Comment on above: Result Comment: LDL <100 mg/dL - Desirable LDL >160 mg/dL - High Risk Performed By: #### L IPR #### [facility] ([facility] [address] [place] [address] VIR CHOLESTEROL:HDL 2.1 Normal 1.0-5.0 [facility] Comment on above: Performed By: #### L IPR #### [facility] ([facility]) [address] [place] [address] VIR Triglyceride [Mass/Vol] 69 mg/dL Normal 27-150 [facility] Comment on above: Performed By: #### L IPR #### [facility] ([facility]) [address] [place] [address] VIR VERY LOW LIPOPROTEIN 14 mg/dL Normal 0-30 [facility] Comment on above: Performed By: #### L IPR #### [facility] ([facility]) [address] [place] [address] VIR MAGNESIUMon 01-27-2025 Magnesium [Mass/Vol] 1.9 mg/dL Normal 1.8-2.6 [facility] Comment on above: Performed By: #### M G #### [facility] ([facility]) [address] [place] [address] VIR MICROALBUMIN / CREATININE UR INE RATIOon 01-27-2025 MICROALBUMIN / CREATININE URINE RATIO MALBU MICROALBUMIN / CREATININE URINE RATIO Cancelled Normal [facility] PROSTATIC SPECIFIC ANTIGEN S CREENon 01-27-2025 PROSTATIC SPEC ANT 3.11 ng/mL Normal 0.00-4.00 [facility] Comment on above: Result Comment: The method used for this test is [employer] DXI chemiluminescent immunoassay. Values obtained by different assay methods cannot be used interchangeably. Performed By: #### P SAS #### [facility] ([facility]) [address] [place] [address] VIR XR CHEST 2 VWSon 01-27-2025 XR CHEST 2 VWS XR CHEST 2 VWS STUDY: XR CHEST 2 VWS INDICATION: Recurrent productive cough. COMPARISON: None FINDINGS/IMPRESSION: * No acute cardiopulmonary process, by radiograph. * Prominent retrosternal clear space. Correlate with symptoms of COPD. Finalized by Samson Brown on 01/27/2025 3:13 PM Normal [facility] XR Chest PA and Lateralon STUDY: [...] by Samson Brown on 01/27/2025 3:13 PM [facility] Radiology Study observation (narrative) [facility] XR Chest PA and LateralOrder ed By: Samson Brown on 01-27-2025 [employer] Work Phone: Urology Office/Clinic Noteon 01-24-2025 Urology [...] hx of prostate cancer. Prostate [place] 10/03/23 [facility] [place] Neg. Prostate volume 31 mL. NEO [...] Contact Information ANGELIQUE LUNDBERG, Kim Mcgowan, URL [address] [place] [address] [place] [address] Additional Instructions: 6 mos w/ PSA Patient Education Prostate Cancer Screening IJoselin, personally scribed for Dr. Ortiz on 01/24/2025 13:52:06. . Documentation recorded by the scribe, Joselin Sesay, accurately reflects the services(s) I performed and [...] Protein Urine Dipstick: Negative (01/24/25 13:31:00) Specific [place]low Urine Dipstick: <=1.005 (01/24/25 13:31:00) Urine Appearance Urine Dipstick: Clear (01/24/25 13:31:00) Urine Color Urine Dipstick: Light yellow (01/24/25 13:31:00) Urobilinogen Urine Dipstick: Normal 0.2-1 EU/dl (01/24/25 13:31:00) pH Urine Dipstick: 6 (01/24/25 13:31:00) [1] URO- 3 mos PSA; Kim ORTIZ MD 12/22/2023 15:26 EDT Normal [facility] Comment on above: Result Comment: Elec [...] 4 and 10 ng/mL, by patient age (Cataljordan et al, BRAYAN 1998, 279:1542). % Free PSA 50-64 yr 65-75 yr 0.00-10.00% 56% 55% 10.01-15.00% 24% 35% 15.01-20.00% 17% 23% 20.01-25.00% 10% 20% >25.00% 5% 9% Please note: Martir et al did not make specific recommendations regarding the use of percent free PSA for any other population of men. Performed at: [address] [id number] Negative Checker: Steve Ramirez PhD, Phone: [phone] Prostate specific Ag [Mass/Vol] 3.1 ng/mL 0.0 - 4.0 ng/mL [facility] Comment on above: Fer ECLIA methodol ogy. According to the [place] [employer], Serum PSA should decrease and [...] malignant disease. PSA, FREE 0.53 ng/mL N/A [facility] Comment on above: Fer ECLIA methodol ogy. [facility] e POCT Hemoglobin A1con 2024 ADA Target < 8 Yes [facility] HbA1c (Bld) [Mass fraction] 6.8 % 4 - 7 % [facility] POCT Hemoglobin A1con 2024 ADA Target < 8 Yes [facility] HbA1c (Bld) [Mass fraction] 6.8 % 4 - 7 % [facility] CBC AND AUTO DIFFon 04-23-20 ABSOLUTE BASOPHIL 0.1 X10E9/L Normal 0.0-0.2 [facility] Comment on above: Performed By: #### 2 857-1, CBCA, HA1C, 22214-4, CMP, TSHR #### [facility] ([id number]) [address] [place] [address] ABSOLUTE NEUTROPHIL 4.4 X10E9/L Normal 1.5-6.6 [facility] Comment on above: Performed By: #### 2 857-1, CBCA, HA1C, 33229-9, CMP, TSHR #### [facility] ([id number]) [address] [place] [address] Basophils/100 WBC (Bld) 0.9 % Normal [facility] Comment on above: Performed By: #### 2 857-1, CBCA, HA1C, 65841-7, CMP, TSHR #### [facility] ([id number]) [address] [address] Eosinophils (Bld) [#/Vol] 0.3 10*3/uL Normal 0.0-0.4 [facility] Comment on above: Performed By: #### 2 857-1, CBCA, HA1C, 72801-2, CMP, TSHR #### [facility] ([id number]) [address] [address] Eosinophils/100 WBC (Bld) 3.7 % Normal [facility] Comment on above: Performed By: #### 2 857-1, CBCA, HA1C, 23364-4, CMP, TSHR #### [facility] ([id number]) [address] [place] [address] Erythrocyte distribution width (RBC) [Ratio] 13.3 % Normal 11.5-15.0 [facility] Comment on above: Performed By: #### 2 857-1, CBCA, HA1C, 10695-6, CMP, TSHR #### [facility] ([id number]) [address] [address] Hematocrit (Bld) [Volume fraction] 41.3 % Normal 39-49 [facility] Comment on above: Performed By: #### 2 857-1, CBCA, HA1C, 29314-7, CMP, TSHR #### [facility] ([id number]) [address] [place] [address] Hemoglobin (Bld) [Mass/Vol] 14.3 g/dL Normal 13.0-17.0 [facility] Comment on above: Performed By: #### 2 857-1, CBCA, HA1C, 07409-8, CMP, TSHR #### [facility] ([id number]) [address] [address] Lymphocytes (Bld) [#/Vol] 1.7 10*3/uL Normal 1.0-3.5 [facility] Comment on above: Performed By: #### 2 857-1, CBCA, HA1C, 98147-0, CMP, TSHR #### [facility] ([id number]) [address] [address] Lymphocytes/100 WBC (Bld) 24.3 % Normal [facility] Comment on above: Performed By: #### 2 857-1, CBCA, HA1C, 60953-9, CMP, TSHR #### [facility] ([id number]) [address] [address] MCH (RBC) [Entitic mass] 32.0 pg Normal 27-34 [facility] Comment on above: Performed By: #### 2 857-1, CBCA, HA1C, 74210-2, CMP, TSHR #### [facility] ([id number]) [address] [address] MCHC (RBC) [Mass/Vol] 34.6 g/dL Normal 32-36 [facility] Comment on above: Performed By: #### 2 857-1, CBCA, HA1C, 11884-3, CMP, TSHR #### [facility] ([id number]) [address] [address] MCV (RBC) [Entitic vol] 93 fL Normal 80-100 [facility] Comment on above: Performed By: #### 2 857-1, CBCA, HA1C, 05508-3, CMP, TSHR #### [facility] ([id number]) [address], [address] [place] [address] Monocytes (Bld) [#/Vol] 0.6 10*3/uL Normal 0-0.9 [facility] Comment on above: Performed By: #### 2 857-1, CBCA, HA1C, 80385-5, CMP, TSHR #### [facility] ([id number]) [address] [facility] [facility] [address] [place] [address] Monocytes/100 WBC (Bld) 8.9 % Normal [facility] Comment on above: Performed By: #### 2 857-1, CBCA, HA1C, 16880-4, CMP, TSHR #### [facility] ([id number]) [address], [facility] [facility] [address] [place] [address] Neutrophils/100 WBC (Bld) 62.2 % Normal [facility] Comment on above: Performed By: #### 2 857-1, CBCA, HA1C, 44372-4, CMP, TSHR #### [facility] ([id number]) [address] [place] [address] Platelet mean volume (Bld) [Entitic vol] 9.0 fL Normal 7-12 [facility] Comment on above: Performed By: #### 2 857-1, CBCA, HA1C, 90115-9, CMP, TSHR #### [facility] ([id number]) [address], [address] [place] [address] Platelets (Bld) [#/Vol] 164 10*3/uL Normal 150-450 [facility] Comment on above: Performed By: #### 2 857-1, CBCA, HA1C, 65415-3, CMP, TSHR #### [facility] ([id number]) [address] [place] [address] RBC COUNT 4.46 X10E12/L Normal 4.10-5.70 [facility] Comment on above: Performed By: #### 2 857-1, CBCA, HA1C, 56313-0, CMP, TSHR #### [facility] ([id number]) [address], [address] [place] [address] WBC (Bld) [#/Vol] 7.1 10*3/uL Normal 4.0-11.0 [facility] Comment on above: Performed By: #### 2 857-1, CBCA, HA1C, 48208-9, CMP, TSHR #### [facility] ([id number]) [address], [address] [place] [address] COMPREHENSIVE METABOLIC PANE Shant 04-23-2024 Albumin [Mass/Vol] 4.3 g/dL Normal 3.2-5.3 [facility] Comment on above: Performed By: #### C BCA, CMP, 38904-9, , TSHR, 26949-2 #### [facility] ([id number]) [address], [address] [place] [address] ALP [Catalytic activity/Vol] 101 U/L Normal 39-130 [facility] Comment on above: Performed By: #### C BCA, CMP, 53389-4, 86122-5, TSHR, 88482-8 #### [facility] ([id number]) [address], [address] [place] [address] ALT [Catalytic activity/Vol] 25 U/L Normal 0-40 [facility] Comment on above: Performed By: #### C BCA, CMP, 83543-6, 50830-7, TSHR, 95396-4 #### [facility] ([id number]) [address], [address] [place] [address] Anion gap [Moles/Vol] 3 mmol/L Low 5-15 [facility] Comment on above: Performed By: #### C BCA, CMP, 58163-8, 13379-8, TSHR, 51067-3 #### [facility] ([id number]) [address], [address] [place] [address] AST [Catalytic activity/Vol] 25 U/L Normal 0-41 [facility] Comment on above: Performed By: #### C BCA, CMP, 91802-4, 33945-1, TSHR, 43361-4 #### [facility] ([id number]) [address], [address] [place] [address] Bilirubin [Mass/Vol] 0.4 mg/dL Normal 0.3-1.2 [facility] Comment on above: Performed By: #### C BCA, CMP, 73446-7, , TSHR, 15868-7 #### [facility] ([id number]) [address], [address] [place] [address] Calcium [Mass/Vol] 9.6 mg/dL Normal 8.5-10.5 [facility] Comment on above: Performed By: #### C BCA, CMP, 65372-4, , TSHR, 79551-9 #### [facility] ([id number]) [address], [address] [place] [address] Chloride [Moles/Vol] 101 mmol/L Normal 98-109 [facility] Comment on above: Performed By: #### C BCA, CMP, 66782-1, , TSHR, 55313-8 #### [facility] ([id number]) [address], [address] [place] [address] CO2 [Moles/Vol] 34 mmol/L High 22-32 [facility] Comment on above: Performed By: #### C BCA, CMP, 26130-9, 90637-8, TSHR, 13548-6 #### [facility] ([id number]) [address] [place] [address] Creatinine [Mass/Vol] 0.93 mg/dL Normal 0.60-1.30 [facility] Comment on above: Result Comment: METH OD TRACEABLE TO IDMS STANDARD Performed By: #### C BCA, CMP, 29017-5, 63740-2, TSHR, 98010-3 #### [facility] ([id number]) [address], [facility] [facility] [address] [place] [address] eGFR (CKD-EPI) NON-RACE DEPENDENT >90 Normal >59 [facility] Comment on above: Result Comment: Reported eGFR is based on the CKD-EPI 2020 equation that does not use a race coefficient. Performed By: #### C BCA, CMP, 72248-0, , TSHR, 98232-3 #### [facility] ([id number]) [address] [place] [address] Glucose [Mass/Vol] 276 mg/dL High 65-99 [facility] Comment on above: Performed By: #### C BCA, CMP, 84624-6, , TSHR, 13065-4 #### [facility] ([id number]) [address] [address] Potassium [Moles/Vol] 4.9 mmol/L Normal 3.5-5.0 [facility] Comment on above: Performed By: #### C BCA, CMP, 03916-7, 79024-7, TSHR, 57633-8 #### [facility] ([id number]) [address] [address] Protein [Mass/Vol] 7.4 g/dL Normal 6.0-8.0 [facility] Comment on above: Performed By: #### C BCA, CMP, 16870-9, 60794-2, TSHR, 19508-8 #### [facility] ([id number]) [address] [facility] [address] [place] [address] Sodium [Moles/Vol] 138 mmol/L Normal 134-146 [facility] Comment on above: Performed By: #### C BCA, CMP, 90883-0, 79439-1, TSHR, 77568-3 #### [facility] ([id number]) [address], [facility] [address] [place] [address] Urea nitrogen [Mass/Vol] 18 mg/dL Normal 5-27 [facility] Comment on above: Performed By: #### C BCA, CMP, 31241-6, 39634-3, TSHR, 38800-5 #### [facility] ([id number]) [address] [address] EBV DNA ASHLYN+probe Qnon 04-23 Lipoprotein a [Moles/Vol] 23 nmol/L Normal <75 [facility] Comment on above: Result Comment: NOTE ADDITIONAL INFORMATION Please notice that Lp(a) values are reported in molar units (nmol/L). These units are recommended by professional society guidelines and expert opinion statements. Measured results and risk thresholds are higher than those generated using mass units (mg/dL). Cardiovascular risk increases starting at 75 nmol/L. Lp(a) >=125 nmol/L is considered a risk enhancing factor by the [place] [employer]. This test has been modified from the petroleum production engineer's instructions. Its performance characteristics were determined by [facility] in a manner consistent with CLIA requirements. This test has not been cleared or approved by the U.S. Food and Drug Administration. Test Performed by: [facility] [place] [address] Negative Checker: Hipolito Montano Ph.D.; CLIA# [id number] Performed By: #### C BCA, CMP, 63168-7, 39078-6, TSHR, 25005-3 #### [facility] ([id number]) [address] [facility] [place] [address] HGB A1C (GLYCO-HGB)on 2023 Glucose [Mass/Vol] 143 mg/dL Normal [facility] Comment on above: Performed By: #### C DANIELLE LOZANO, 69570-5, 14285-6, TSHR, 07338-1 #### [facility] ([id number]) [address], [address] [place] [address] HbA1c (Bld) [Mass fraction] 6.6 % High 4.4-5.6 [facility] Comment on above: Result Comment: NOTE ADA Guidelines Result HgbA1c Normal : less than 5.7 % Prediabetes : 5.7 % to 6.4 % Diabetes : > 6.4 % Use with caution in patients with abnormal hemoglobin variants as the half-life of red blood cells and in vivo glycation rates are affected. Performed By: #### C DANIELLE LOZANO, 99502-7, 93323-9, TSHR, 69591-4 #### [facility] ([id number]) [address], [address] [place] [address] Lipid 1996 panelon 4 Cholesterol [Mass/Vol] 140 mg/dL Low 150-200 [facility] Comment on above: Performed By: #### C BLAKE, DANIELLE, 88657-9, , TSHR, 05394-5 #### [facility] ([id number]) [address], [address] [place] [address] Cholesterol in HDL [Mass/Vol] 67 mg/dL Normal >39 [facility] Comment on above: Result Comment: HDL <40 mg/dL - High Risk HDL > or = 40mg/dL- Desirable HDL >60 mg/dL - Negative Risk Performed By: #### C BLAKE, CMP, 01026-8, 17656-4, TSHR, 98259-9 #### [facility] ([id number]) [address], [facility] [address] [place] [address] Cholesterol in LDL [Mass/Vol] 65 mg/dL Normal <130 [facility] Comment on above: Result Comment: LDL <100 mg/dL - Desirable LDL >160 mg/dL - High Risk Performed By: #### C BCA, CMP, 29016-7, , TSHR, 82454-9 #### [facility] ([id number]) [address], [address] [address] Cholesterol in VLDL [Mass/Vol] 8 mg/dL Normal 0-30 [facility] Comment on above: Performed By: #### C BCA, CMP, 32363-1, 46871-9, TSHR, 04471-6 #### [facility] ([id number]) [address] [address] CHOLESTEROL:HDL 2.1 Normal 1.0-5.0 [facility] Comment on above: Performed By: #### C BCA, CMP, 58868-3, 08634-3, TSHR, 27293-8 #### [facility] ([id number]) [address], [facility] [address] [place] [address] Triglyceride [Mass/Vol] 38 mg/dL Normal 27-150 [facility] Comment on above: Performed By: #### C BCA, CMP, 80639-3, 87720-2, TSHR, 03756-3 #### [facility] ([id number]) [address] [address] [place] [address] MICROALBUMIN - ALBUMIN:CREAT ININE URINE RATIOon 04-23-2024 ALB/CREAT RATIO NOT CALCULATED Normal 0.0-30.0 [facility] Comment on above: Result Comment: Result for Albumin/Creatinine Ratio cannot be reliably calculated because urine albumin and or urine creatinine is below the detection limit of the assay. Performed By: #### C BCA, CMP, 04633-3, 05551-5, TSHR, 69316-0 #### [facility] ([id number]) [address], [address] [address] Albumin DL <= 20 mg/L (U) [Mass/Vol] mg/dL Normal 0.0-1.9 [facility] Comment on above: Performed By: #### C BCA, CMP, 34521-3, , TSHR, 28375-9 #### [facility] ([id number]) [address], [address] [address] URINE CREAT 50.83 mg/dL Normal [facility] Comment on above: Performed By: #### C BCA, CMP, , , TSHR, 21844-4 #### [facility] ([id number]) [address], [address] [address] POCT Glucose Fingerstickon 1 06-23-2023 Glucose [Mass/Vol] 299 mg/dL Abnormal 65 - 99 mg/dL [facility] Interpretation and review of laboratory results Abnormal [facility] Prostate specific Ag [Mass/V ol]on 04-23-2024 PROSTATIC SPEC ANT 2.89 ng/mL Normal 0.00-4.00 [facility] Comment on above: Result Comment: The method used for this test is [employer] [place] DXI chemiluminescent immunoassay. Values obtained by different assay methods cannot be used interchangeably. Performed By: #### 2 857-1, CBCA, HA1C, 25741-1, CMP, TSHR #### [facility] ([id number]) [address], [facility] [address] [place] [address] TSH WITH REFLEXon 04-23-2024 TSH 1.27 uIU/mL Normal 0.49-4.67 [facility] Comment on above: Performed By: #### C BCA, CMP, 42402-7, 09117-5, TSHR, 84599-0 #### [facility] ([id number]) [address] [place] [address] POCT Hemoglobin A1con 2023 ADA Target < 8 Yes [facility] HbA1c (Bld) [Mass fraction] 7.2 g/dL Abnormal 4 - 7 g/dL [facility] Interpretation and review of laboratory results Abnormal [facility] CT HEAD WO CONTRASTon 2023 CT HEAD [...] Dane Zuñiga MD 12/17/23 Final result Normal [facility] CT Head WO contraston [address] of the brain. [facility] RIS CONSOLIDATED EXAMINATION: CT OF THE HEAD WITHOUT [...] lytic or blastic osseous lesions are identified. [facility] Dane Everett MD - 12/17/2023 EXAMINATION: CT OF THE [...] identified. IMPRESSION: Normal CT of the brain. [facility] CT Head WO contrastOrdered B y: Dane Zuñiga on 12-17-2023 [facility] Work Phone: CT Head WO contraston 2023 Radiology Study observation (narrative) [facility] POCT Hemoglobin A1con 2023 ADA Target < 8 Yes [facility] HbA1c (Bld) [Mass fraction] 7.9 g/dL Abnormal 4 - 7 g/dL [facility] Interpretation and review of laboratory results Abnormal [facility] MR prostate wo/w conon 10-06 MR prostate wo/w con [facility] [address] [place] [address] [place] [address] MRI Report Signed Patient: Sd Cardozo MR#: [id number] 68 : 1960 Acct:[id number] Age/Sex: 63 / M ADM Date: 10/03/23 Loc: MR Room: Type: [facility] Attending Dr: iKm Ortiz MD Copies to: Kim Ortiz MD [...] Jurado Jr., D.OTian10/07/2023 9:12 AM Dictation Location: [place] [address] Transcribed By: [facility] 10/07/23 0912 Dictated By: Tc Jurado Jr DO 10/07/23 0909 Signed By: 10/07/23 0912 Normal [facility] Creatinine (Bld) [Mass/Vol]O rdered By: Kim Ortiz on 10-03-2023 Creatinine [Mass/Vol] 0.9 mg/dL 0.6-1.3 [facility] Comment on above: ER/ESD physician is notified/shown all ISTAT results.Critical values may be confirmed by laboratory testing ifdeemed necessary by ER attending doctor. ISTAT XRay CREon 10-03-2023 Creatinine [Mass/Vol] 0.9 mg/dL Normal 0.6-1.3 [facility] Comment on above: Result Comment: ER/E SD physician is notified/shown all ISTAT results. Critical values may be confirmed by laboratory testing if deemed necessary by ER attending doctor. Performed By: #### I SCRE #### [facility] [address] [place] [address] ISTAT GFR > 60.0 Normal [facility] Comment on above: Result Comment: PERF ORMED BY: [place] [address] PATHOLOGIST [employer] JADA SHAHID M.D. Performed By: #### I SCRE #### [facility] [address] [place] [address] No Panel InformationOrdered By: Kim Ortiz on 10-03-2023 Bedside Estimated GFR (eGFR) > 60.0 [facility] POCT Hemoglobin A1con 2023 HbA1c (Bld) [Mass fraction] 6.8 g/dL 4 - 7 g/dL [facility] CBC AND AUTO DIFFon 06-06-20 ABSOLUTE BASOPHIL 0.1 X10E9/L Normal 0.0-0.2 [facility] Comment on above: Performed By: #### C BCA, CMP, 24034-5, 41536-3, TSHR, 76987-5 #### [facility] ([id number]) [address], [address] [place] [address] ABSOLUTE NEUTROPHIL 4.2 X10E9/L Normal 1.5-6.6 [facility] Comment on above: Performed By: #### C BCA, CMP, , , TSHR, 25340-5 #### [facility] ([id number]) [address], [address] [place] [address] Basophils/100 WBC (Bld) 1.1 % Normal [facility] Comment on above: Performed By: #### C BCA, CMP, , , TSHR, 88721-8 #### [facility] ([id number]) [address], [address] [place] [address] Eosinophils (Bld) [#/Vol] 0.2 10*3/uL Normal 0.0-0.4 [facility] Comment on above: Performed By: #### C BCA, CMP, , , TSHR, 18976-5 #### [facility] ([id number]) [address], [address] [place] [address] Eosinophils/100 WBC (Bld) 3.0 % Normal [facility] Comment on above: Performed By: #### C BCA, CMP, , , TSHR, 57638-1 #### [facility] ([id number]) [address], [address] [place] [address] Erythrocyte distribution width (RBC) [Ratio] 12.9 % Normal 11.5-15.0 [facility] Comment on above: Performed By: #### C BCA, CMP, , , TSHR, 56954-2 #### [facility] ([id number]) [address], [address] [place] [address] Hematocrit (Bld) [Volume fraction] 41.5 % Normal 39-49 [facility] Comment on above: Performed By: #### C BCA, CMP, , , TSHR, 46712-5 #### [facility] ([id number]) [address], [address] [place] [address] Hemoglobin (Bld) [Mass/Vol] 14.2 g/dL Normal 13.0-17.0 [facility] Comment on above: Performed By: #### C BCA, CMP, , , TSHR, 79291-1 #### [facility] ([id number]) [address], [address] [place] [address] Lymphocytes (Bld) [#/Vol] 1.9 10*3/uL Normal 1.0-3.5 [facility] Comment on above: Performed By: #### C BCA, CMP, , , TSHR, 01732-5 #### [facility] ([id number]) [address], [address] [place] [address] Lymphocytes/100 WBC (Bld) 26.8 % Normal [facility] Comment on above: Performed By: #### C BCA, CMP, , , TSHR, 43898-8 #### [facility] ([id number]) [address], [address] [place] [address] MCH (RBC) [Entitic mass] 31.0 pg Normal 27-34 [facility] Comment on above: Performed By: #### C BCA, CMP, , , TSHR, 44768-7 #### [facility] ([id number]) [address], [address] [place] [address] MCHC (RBC) [Mass/Vol] 34.2 g/dL Normal 32-36 [facility] Comment on above: Performed By: #### C BCA, CMP, , , TSHR, 42994-4 #### [facility] ([id number]) [address], [address] [place] [address] MCV (RBC) [Entitic vol] 91 fL Normal 80-100 [facility] Comment on above: Performed By: #### C BCA, CMP, 05836-6, , TSHR, 63670-1 #### [facility] ([id number]) [address], [address] [place] [address] Monocytes (Bld) [#/Vol] 0.6 10*3/uL Normal 0-0.9 [facility] Comment on above: Performed By: #### C BCA, CMP, 79231-8, , TSHR, 56159-5 #### [facility] ([id number]) [address], [address] [place] [address] Monocytes/100 WBC (Bld) 9.2 % Normal [facility] Comment on above: Performed By: #### C BCA, CMP, 37184-9, , TSHR, 88338-7 #### [facility] ([id number]) [address], [address] [place] [address] Neutrophils/100 WBC (Bld) 59.9 % Normal [facility] Comment on above: Performed By: #### C BCA, CMP, 16764-0, , TSHR, 39482-6 #### [facility] ([id number]) [address], [address] [place] [address] Platelet mean volume (Bld) [Entitic vol] 8.7 fL Normal 7-12 [facility] Comment on above: Performed By: #### C BCA, CMP, 07756-8, , TSHR, 07963-4 #### [facility] ([id number]) [address], [address] [place] [address] Platelets (Bld) [#/Vol] 194 10*3/uL Normal 150-450 [facility] Comment on above: Performed By: #### C BCA, CMP, 05783-7, 73307-8, TSHR, 95139-1 #### [facility] ([id number]) [address], [address] [place] [address] RBC COUNT 4.58 X10E12/L Normal 4.10-5.70 [facility] Comment on above: Performed By: #### C BCA, CMP, 94973-3, 77920-6, TSHR, 25919-5 #### [facility] ([id number]) [address], [address] [place] [address] WBC (Bld) [#/Vol] 6.9 10*3/uL Normal 4.0-11.0 [facility] Comment on above: Performed By: #### C BCA, CMP, 26701-9, 06264-5, TSHR, 49528-8 #### [facility] ([id number]) [address], [address] [place] [address] COMPREHENSIVE METABOLIC PANE [facility] 06-06-2023 Albumin [Mass/Vol] 4.5 g/dL Normal 3.2-5.3 [facility] Comment on above: Performed By: #### C BCA, CMP, 41216-0, , TSHR, 36444-2 #### [facility] ([id number]) [address], [address] [place] [address] ALP [Catalytic activity/Vol] 84 U/L Normal 39-130 [facility] Comment on above: Performed By: #### C BCA, CMP, 74889-3, 04513-8, TSHR, 48284-3 #### [facility] ([id number]) [address], [address] [place] [address] ALT [Catalytic activity/Vol] 27 U/L Normal 0-40 [facility] Comment on above: Performed By: #### C BCA, CMP, 95972-5, 54444-1, TSHR, 40815-2 #### [facility] ([id number]) [address], [address] [place] [address] Anion gap [Moles/Vol] 8 mmol/L Normal 5-15 [facility] Comment on above: Performed By: #### C BCA, CMP, 90601-2, 39745-9, TSHR, 51291-5 #### [facility] ([id number]) [address], [address] [place] [address] AST [Catalytic activity/Vol] 26 U/L Normal 0-41 [facility] Comment on above: Performed By: #### C BCA, CMP, 10618-5, , TSHR, 73112-8 #### [facility] ([id number]) [address], [address] [place] [address] Bilirubin [Mass/Vol] 0.5 mg/dL Normal 0.3-1.2 [facility] Comment on above: Performed By: #### C BCA, CMP, 04182-8, , TSHR, 53510-7 #### [facility] ([id number]) [address], [address] [place] [address] Calcium [Mass/Vol] 9.5 mg/dL Normal 8.5-10.5 [facility] Comment on above: Performed By: #### C BCA, CMP, 51638-9, , TSHR, 52963-1 #### [facility] ([id number]) [address], [address] [place] [address] Chloride [Moles/Vol] 101 mmol/L Normal 98-109 [facility] Comment on above: Performed By: #### C BCA, CMP, 41456-0, 51670-7, TSHR, 24249-5 #### [facility] ([id number]) [address], [address] [place] [address] CO2 [Moles/Vol] 31 mmol/L Normal 22-32 [facility] Comment on above: Performed By: #### C BCA, CMP, 24333-8, 78869-1, TSHR, 26330-4 #### [facility] ([id number]) [address], [address] [place] [address] Creatinine [Mass/Vol] 0.96 mg/dL Normal 0.60-1.30 [facility] Comment on above: Result Comment: METH OD TRACEABLE TO IDMS STANDARD Performed By: #### C BCA, CMP, 75864-9, 96625-3, TSHR, 62687-2 #### [facility] ([id number]) [address], [address] [address] GFR/1.73 sq M.predicted among non-blacks MDRD (S/P/Bld) [Vol rate/Area] 90 mL/min/{1.73_m2} Normal >59 [facility] Comment on above: Result Comment: Reported eGFR is based on the CKD-EPI 2020 equation that does not use a race coefficient. Performed By: #### C BCA, CMP, 64153-6, , TSHR, 36780-9 #### [facility] ([id number]) [address], [facility] [address] [place] [address] Glucose [Mass/Vol] 198 mg/dL High 65-99 [facility] Comment on above: Performed By: #### C BCA, CMP, 25435-9, 16697-6, TSHR, 77172-8 #### [facility] ([id number]) [address], [address] [place] [address] Potassium [Moles/Vol] 4.8 mmol/L Normal 3.5-5.0 [facility] Comment on above: Performed By: #### C BCA, CMP, 00379-1, 88660-4, TSHR, 68764-7 #### [facility] ([id number]) [address], [address] [place] [address] Protein [Mass/Vol] 7.3 g/dL Normal 6.0-8.0 [facility] Comment on above: Performed By: #### C BCA, CMP, 25211-0, 58370-7, TSHR, 04205-4 #### [facility] ([id number]) [address], [address] [place] [address] Sodium [Moles/Vol] 140 mmol/L Normal 134-146 [facility] Comment on above: Performed By: #### C BCA, CMP, 90126-5, , TSHR, 97842-9 #### [facility] ([id number]) [address], [address] [place] [address] Urea nitrogen [Mass/Vol] 17 mg/dL Normal 5-27 [facility] Comment on above: Performed By: #### C BCA, CMP, 85822-8, , TSHR, 57781-6 #### [facility] ([id number]) [address], [address] [place] [address] FERRITINon 06-06-2023 Ferritin [Mass/Vol] 109 ng/mL Normal 24-336 [facility] Comment on above: Performed By: #### 2 276-4 #### [facility] ([id number]) [address], [address] [place] [address] Lipid 1996 panelon 3 Cholesterol [Mass/Vol] 176 mg/dL Normal 150-200 [facility] Comment on above: Performed By: #### C BCA, CMP, 36900-2, , TSHR, 88324-7 #### [facility] ([id number]) [address], [address] [place] [address] Cholesterol in HDL [Mass/Vol] 74 mg/dL Normal >39 [facility] Comment on above: Result Comment: HDL <40 mg/dL - High Risk HDL > or = 40mg/dL- Desirable HDL >60 mg/dL - Negative Risk Performed By: #### C BCA, CMP, 41021-6, 08073-3, TSHR, 63155-6 #### [facility] ([id number]) [address], [address] [place] [address] Cholesterol in LDL [Mass/Vol] 87 mg/dL Normal <130 [facility] Comment on above: Result Comment: LDL <100 mg/dL - Desirable LDL >160 mg/dL - High Risk Performed By: #### C BCA, CMP, 04990-3, 75805-5, TSHR, 32567-2 #### [facility] ([id number]) [address], [address] [place] [address] Cholesterol in VLDL [Mass/Vol] 15 mg/dL Normal 0-30 [facility] Comment on above: Performed By: #### C BCA, CMP, 66813-3, 63098-0, TSHR, 21343-0 #### [facility] ([id number]) [address], [address] [place] [address] CHOLESTEROL:HDL 2.4 Normal 1.0-5.0 [facility] Comment on above: Performed By: #### C BCA, CMP, 50065-9, 63038-5, TSHR, 42620-4 #### [facility] ([id number]) [address], [address] [place] [address] Triglyceride [Mass/Vol] 77 mg/dL Normal 27-150 [facility] Comment on above: Performed By: #### C BCA, CMP, 06218-2, 03060-1, TSHR, 15580-5 #### [facility] ([id number]) [address], [address] [place] [address] MAGNESIUMon 06-06-2023 Magnesium [Mass/Vol] 2.0 mg/dL Normal 1.8-2.6 [facility] Comment on above: Performed By: #### C BCA, [facility], 51275-7, 39407-7, TSHR, 42215-7 #### [facility] ([id number]) [address], [address] [place] [address] MICROALBUMIN - ALBUMIN:CREAT ININE URINE RATIOon 06-06-2023 ALB/CREAT RATIO 10.2 mg/g creat Normal 0.0-30.0 [facility] Comment on above: Performed By: #### M ALBU #### [facility] ([id number]) [address], [address] [place] [address] Albumin DL <= 20 mg/L (U) [Mass/Vol] 0.7 mg/dL Normal 0.0-1.9 [facility] Comment on above: Performed By: #### M ALBU #### [facility] ([id number]) [address], [address] [place] [address] URINE CREAT 68.64 mg/dL Normal [facility] Comment on above: Performed By: #### M ALBU #### [facility] ([id number]) [address], [address] [place] [address] POCT Hemoglobin L2bBmcnmyk B y: Jyoti Yeh on 06-06-2023 ADA Target < 8 Yes [facility] HbA1c (Bld) [Mass fraction] 7.2 g/dL Abnormal 4 - 7 g/dL [facility] Interpretation and review of laboratory results Abnormal [facility] TSH WITH REFLEXon 06-06-2023 TSH 1.16 uIU/mL Normal 0.49-4.67 [facility] Comment on above: Performed By: #### C BCA, [facility], 19188-9, 33848-9, TSHR, 98075-7 #### [facility] ([id number]) [address], [address] [place] [address] Vitamin D+Metabolites [Mass/ Vol]on 06-06-2023 VITAMIN D 25 HYD TOT 31.9 ng/mL Normal 30-100 [facility] Comment on above: Result Comment: Vitamin D status 25 [place] Vitamin D Deficiency <20 ng/mL Insufficiency 20-29 ng/mL Sufficiency 30-100 ng/mL Toxicity >100 ng/mL NOTE: A pediatric reference range has not been established by the petroleum production engineer of this kit. The [place] [employer] recommends a Vitamin D level of = or >20ng/mL in infants and children. Performed By: #### C BCA, [facility], 50207-3, , TSHR, 59961-8 #### [facility] ([id number]) [address] [facility], [address] [place] [address] POC Glucose Fingerstickon Glucose [Mass/Vol] 145 mg/dL High 75 - 110 mg/dL [facility] Interpretation and review of laboratory results Abnormal [facility] Microalb.,Random Uron 2021 Creatinine [Mass/Vol] 59.2 mg/dL Normal 39.0-259.0 [facility] Comment on above: Performed By: #### U RNMAB #### [employer] [address] [place], [place] [id number] Negative Checker: Gregory Brizuela MD Microalb/Creat Ratio Can not be calculated Normal <17 [facility] Comment on above: Performed By: #### U RNMAB #### [employer] [address] [place], [place] [id number] Negative Checker: Gregory Brizuela MD Microalbumin conc. <12 Normal <21 [facility] Comment on above: Performed By: #### U RNMAB #### [facility] [employer] [address] [place] [address] Negative Checker: Gregory Brizuela MD Microalbumin, Uron 2 Albumin/Creatinine DL <= 20 mg/L (24H U) [Mass ratio] <12 <21 mg/L [facility] Albumin/Creatinine DL <= 20 mg/L (U) [Ratio] Can not be calculated <17 mcg/mg creat [facility] Creatinine [Mass/Vol] 59.2 mg/dL 39.0 - 259.0 mg/dL [facility] WRIST LEFT 3 VWSon 1 WRIST LEFT 3 VWS [facility] Department of Radiology [address] [place] [address] Patient Name: SD CARDOZO : 1960 [...] view. Electronically signed: Oscar Chao. Transcribed by: [email or web address], User Resident: Electronically Signed by: OSCAR CHAO @ 09/07/2020 04:24 PM Normal [facility] Comment on above: Order Comment: Evalu ate WRIST LEFT 3 [facility] WRIST LEFT 3 [facility] Department of Radiology [address] [place] [id number] Patient Name: SD CARDOZO : 1960 Sex: M Age: Race: White Pt. Location: Patient Status: O Ordered Date: 08/10/2020 1:45:00 PM Completed Date: 08/10/2020 01:47 PM Requesting Provider: NIKKY CAMARENA Attending Provider: NIKKY CAMARENA Report Copy To: Signs & Symptoms: S62.002A Unsp fracture of navicular bone of left wrist, init I10 History: Marta Comments: Exam: WRIST LEFT 3 [facility] WRIST LEFT 3 VWS CLINICAL INFORMATION: Pt stated he injured and fracture his left wrist x 2 weeks ago. VIEWS: AP,Lateral and Oblique views were obtained. COMPARISON: None. IMPRESSION: 1. Cortical irregularity of the dorsal aspect of the distal radius consistent with fracture with soft tissue swelling noted. No carpal alignment abnormalities. Subchondral cysts are noted. Electronically signed: Liana Lamar. Transcribed by: [email or web address], User Resident: Electronically Signed by: LIANA LAMAR @ 08/10/2020 04:09 PM Normal [facility] COMPREHENSIVE METABOLIC PANE L WITH GFRon 04-29-2020 Albumin [Mass/Vol] 4.4 g/dL Normal 3.2-5.3 [facility] Comment on above: Result Comment: Test performed at [facility] [address] [place] [address] CLIA Number [id number] ------ [facility] [address] [place] [address] CLIA No. [id number] CAP Accreditation No. [id number] Engineering Specialist: Dane Torres M.D. Performed By: #### 2 35, 590, 014 #### Endocrine and Diabetes [facility] Unless Otherwise Noted [address] [place] [address] / COLA #4724/CLIA # [id number] ALK PHOS 69 U/L Normal 39-130 [facility] Comment on above: Performed By: #### 2 08, 080, 623 #### [facility] Unless Otherwise Noted [address] [place] [address] / COLA #4724/CLIA # [id number] ALT [Catalytic activity/Vol] 23 U/L Normal 0-40 [facility] Comment on above: Performed By: #### 2 , , 905 #### [facility] Unless Otherwise Noted [address] [facility] [address] [place] [address] / COLA #4724/CLIA # [id number] Anion gap [Moles/Vol] 7 mmol/L Normal 5-15 End [facility] Comment on above: Performed By: #### 2 , , 907 #### [facility] Unless Otherwise Noted [address] [address] / COLA #4724/CLIA # [id number] AST-SGOT 21 U/L Normal 0-41 [facility] Comment on above: Performed By: #### 2 , , 904 #### [facility] Unless Otherwise Noted [address] [address] / COLA #4724/CLIA # [id number] Bilirubin.direct [Mass/Vol] 0.4 mg/dL Normal 0.3-1.2 [facility] Comment on above: Performed By: #### 2 , , 908 #### [facility] Unless Otherwise Noted [address] [facility] [address] [place] [address] / COLA #4724/CLIA # [id number] Calcium [Mass/Vol] 9.3 mg/dL Normal 8.5-10.5 Endocr [facility] Comment on above: Performed By: #### 2 , , 900 #### [facility] Unless Otherwise Noted [address] [facility] [address] [place] [address] / COLA #4724/CLIA # [id number] Chloride [Moles/Vol] 102 mmol/L Normal 98-109 [facility] Comment on above: Performed By: #### 2 , , 903 #### [facility] Diabetes [facility] Unless Otherwise Noted [address] [facility] [address] [place] [address] / COLA #4724/CLIA # [id number] CO2 [Moles/Vol] 31 mmol/L Normal 22-32 [facility] Comment on above: Performed By: #### 2 , , 902 #### [facility] Unless Otherwise Noted [address] [facility] [address] [place] [address] / COLA #4724/CLIA # [id number] Creatinine [Mass/Vol] 0.99 mg/dL Normal 0.60-1.30 End [facility] Comment on above: Result Comment: METH OD TRACEABLE TO IDMS STANDARD Performed By: #### 2 , , 906 #### [facility] Unless Otherwise Noted [address] [facility] [address] [place] [address] / COLA #4724/CLIA # [id number] GFR/1.73 sq M predicted among blacks MDRD (S/P/Bld) [Vol rate/Area] mL/min/{1.73_m2} Normal >59 [facility] Comment on above: Performed By: #### 2 , , 905 #### [facility] Unless Otherwise Noted [address] [facility] [address] [place] [address] / COLA #4724/CLIA # [id number] GFR/1.73 sq M predicted among non-blacks MDRD (S/P/Bld) [Vol rate/Area] mL/min/{1.73_m2} Normal >59 [facility] Comment on above: Performed By: #### 2 , , 905 #### [facility] Unless Otherwise Noted [address] [address] / COLA #4724/CLIA # [id number] Glucose [Mass/Vol] 111 mg/dL High 65-99 [facility] Comment on above: Performed By: #### 2 , , #### [facility] Unless Otherwise Noted [address] [address] / COLA #4724/CLIA # [id number] Potassium [Moles/Vol] 4.2 mmol/L Normal 3.5-5.0 [facility] Comment on above: Performed By: #### 2 , , 905 #### [facility] Unless Otherwise Noted [address] [address] / COLA #4724/CLIA # [id number] Protein [Mass/Vol] 6.7 g/dL Normal 6.0-8.0 [facility] Comment on above: Performed By: #### 2 , , 905 #### [facility] Unless Otherwise Noted [address] [address] / [facility]A #4724/CLIA # [id number] Sodium [Moles/Vol] 140 mmol/L Normal 134-146 [facility] Comment on above: Performed By: #### 2 , , 5 #### [facility] Unless Otherwise Noted [address] [facility] [address] [place] [address] / COLA #4724/CLIA # [id number] Urea nitrogen [Mass/Vol] 15 mg/dL Normal 5-23 [facility] Comment on above: Performed By: #### 2 25, 222, 905 #### [facility] Unless Otherwise Noted [address] [facility] [address] [place] [address] / COLA #5824/CLIA # [id number] LIPID PANEL WITH REFLEX TO D IRECT LDLon 04-29-2020 Cholesterol [Mass/Vol] 153 mg/dL Normal 150-200 En [facility] Comment on above: Performed By: #### 2 25, , 903 #### [facility] Diabetes [facility] Unless Otherwise Noted [address] [facility] [address] [place] [address] / COLA #8824/CLIA # [id number] Cholesterol in LDL/Cholesterol in HDL [Mass ratio] 1.2 Normal <3.5 [facility] Diabetes [facility] Comment on above: Performed By: #### 2 25, , 907 #### [facility] Unless Otherwise Noted [address] [facility] [address] [place] [address] / COLA #4724/CLIA # [id number] Cholesterol.total/Chol esterol in HDL [Mass ratio] 2.4 {ratio} Normal 1.0-5.0 [facility] Comment on above: Result Comment: Test performed at [facility] [address] [place] [address] CLIA Number [id number] ------ Performed By: #### 2 , , 339 #### [facility] Unless Otherwise Noted [address] [address] / COLA #4724/CLIA # [id number] HDL-CHOL 65 mg/dL Normal >39 [facility] Comment on above: Result Comment: HDL <40 mg/dL - High Risk HDL > or = 40mg/dL- Desirable HDL >60 mg/dL - Negative Risk Performed By: #### 2 , , 721 #### [facility] Unless Otherwise Noted [address] [address] / [facility] #4724/CLIA # [id number] LDL-CHOL, CALCULATED 76 mg/dL Normal <130 [facility] Comment on above: Result Comment: LDL <100 mg/dL - Desirable LDL >160 mg/dL - High Risk Performed By: #### 2 , 959 #### [facility] Unless Otherwise Noted [address] [address] / COLA #[id number]/CLIA # [id number] Triglyceride [Mass/Vol] 58 mg/dL Normal 27-150 [facility] Comment on above: Performed By: #### 2 , , 143 #### [facility] Unless Otherwise Noted [address] [address] / COLA #[id number]/CLIA # [id number] VLDL-CHOL, CALCULATED 12 mg/dL Normal 0-30 [facility] Comment on above: Performed By: #### 2 , , 904 #### [facility] Unless Otherwise Noted [address] [address] / COLA #[id number]/CLIA # [id number] MICROALBUMIN, RANDOM SPECon 04-29-2020 Creatinine [Mass/Vol] 38.65 mg/dL Normal [facility] Comment on above: Performed By: #### 2 , , 901 #### [facility] Unless Otherwise Noted [address] [address] / COLA #[id number]/CLIA # [id number] Creatinine [Mass/Vol] SEE NOTE Normal 0.0-30.0 [facility] Comment on above: Result Comment: NOT CALCULATED Result for Albumin/Creatinine Ratio cannot be reliably calculated because urine albumin and or urine creatinine is below the detection limit of the assay. Performed at [facility] [address] [address] Performed By: #### 2 , , 908 #### [facility] Unless Otherwise Noted [address] [address] / COLA #[id number]/CLIA # [id number] MICROALBUMIN <0.7 Normal 0.0-1.9 [facility] Comment on above: Performed By: #### 2 , , 908 #### [facility] Unless Otherwise Noted [address] [address] / COLA #[id number]/CLIA # [id number] Fecal lactoferrinon 10-15-19 20 Lactoferrin, Qual Negative NEGATIVE f or fecal lactoferrin. [place] Rotavirus Antigen, Stoolon 0 10-15-2019 Direct Exam Negative [place] Special Requests NOT REPORTED [place] Specimen Description .FECES [place] SPECIMEN REJECTIONon 020 Ordered Test OBN [place] Reason for Rejection Unable to perform testing: Specimen age beyond stability limit. [place] Specimen source Nom (Unsp spec) .STOOL [place] - NOT REPORTED [place] C-Reactive Proteinon 020 CRP [Mass/Vol] mg/L 0 - 5 mg/L [place] CBC Auto Differentialon 08-15 Basophils (Bld) [#/Vol] 0.00 10*3/uL [place] Basophils/100 WBC (Bld) 1 % 0 - 2 % [place] Differential Type NOT REPORTED [place] Eosinophils (Bld) [#/Vol] 0.30 10*3/uL [place] Eosinophils/100 WBC (Bld) 4 % 0 - 4 % [place] Erythrocyte distribution width (RBC) [Ratio] 13.4 % 11.5 - 14.9 % [place] Hematocrit (Bld) [Volume fraction] 44.1 % 41 - 53 % [place] Hemoglobin (Bld) [Mass/Vol] 14.6 g/dL 13.5 - 17.5 g/dL [place] Interpretation and review of laboratory results Abnormal [place] Lymphocytes (Bld) [#/Vol] 1.80 10*3/uL [place] Lymphocytes/100 WBC (Bld) 28 % 24 - 44 % [place] MCH (RBC) [Entitic mass] 30.1 pg 26 - 34 pg [place] MCHC (RBC) [Mass/Vol] 33.1 g/dL 31 - 37 g/dL [place] MCV (RBC) [Entitic vol] 90.8 fL 80 - 100 fL [place] Monocytes (Bld) [#/Vol] 0.60 10*3/uL [place] Monocytes/100 WBC (Bld) 10 % High 1 - 7 % [place] Platelet mean volume (Bld) [Entitic vol] 7.8 fL 6 - 12 fL [place] Platelets (Bld) [#/Vol] 220 10*3/uL [place] Platelets (Bld) [#/Vol] NOT REPORTED [place] RBC (Bld) [#/Vol] 4.85 10*6/uL 4.5 - 5.9 m/uL [place] RBC morphology finding Nom (Bld) NOT REPORTED [place] Segmented neutrophils/100 WBC (Bld) 57 % 36 - 66 % [place] Segs Absolute 3.80 [place] WBC (Bld) [#/Vol] NOT REPORTED per 100 WBC [place] WBC (Bld) [#/Vol] 6.5 10*3/uL [place] WBC Morphology [place] REPORT[place] ABDOMEN PELVIS W IV CONTR AST Additional Contrast? Noneon 09-11-2019 Reinaldo, Mhpn Incoming Radiant Results From wali/[facility]ocket Change - 09/11/2019 10:39 AM EDT EXAMINATION: CT [...] patient pain. Additional unchanged findings, as above. [place], [place] No acute CT finding in the abdomen or pelvis. No obstructive uropathy. No CT evidence of appendicitis. Persistent moderate constipation, mostly ascending and transverse colon. Correlate with patient pain. Additional unchanged findings, as above. [place] EXAMINATION: CT OF THE ABDOMEN AND [...] degenerative changes T10-T12 with slight wedging T11. [place] Comprehensive Metabolic Pane shant 09-11-2019 Albumin [Mass/Vol] 4.3 g/dL 3.5 - 5.2 g/dL [place] Albumin/Globulin [Mass ratio] NOT REPORTED [place] ALP [Catalytic activity/Vol] 71 U/L 40 - 129 U/L [place] ALT [Catalytic activity/Vol] 20 U/L 5 - 41 U/L [place] Anion gap [Moles/Vol] 12 mmol/L 9 - 17 mmol/L [place] AST [Catalytic activity/Vol] 24 U/L <40 [place] Bilirubin Ql (U) 0.42 mg/dL 0.3 - 1.2 mg/dL [place] Bun/Cre Ratio NOT REPORTED [place] Calcium [Mass/Vol] 9.0 mg/dL 8.6 - 10. 4 mg/dL [place] Chloride [Moles/Vol] 101 mmol/L 98 - 10 7 mmol/L [place] CO2 [Moles/Vol] 26 mmol/L 20 - 31 mmol/L [place] Creatinine [Mass/Vol] 0.79 mg/dL 0.7 - 1.2 mg/dL [place] GFR >60 >60 mL/min [place] GFR Non- >60 >60 mL/min [place] GFR/1.73 sq M predicted among non-blacks MDRD (S/P/Bld) [Vol rate/Area] [place] Comment on above: Average GFR for 50-5 9 years old: 93 mL/min/1.73sq m Chronic Kidney Disease: <60 mL/min/1.73sq m Kidney failure: <15 mL/min/1.73sq m eGFR calculated using average adult body mass. Additional eGFR calculator available at: http://www.MileWise/multiple_crcl_2012.htm GFR/1.73 sq M predicted among non-blacks MDRD (S/P/Bld) [Vol rate/Area] NOT REPORTED [place] Glucose [Mass/Vol] 168 mg/dL High 70 - 99 mg/dL [place] Potassium [Moles/Vol] 4.1 mmol/L 3.7 - 5.3 mmol/L [place] Protein [Mass/Vol] 7.3 g/dL 6.4 - 8.3 g/dL [place] Sodium [Moles/Vol] 139 mmol/L 135 - 144 mmol/L [place] Urea nitrogen [Mass/Vol] 15 mg/dL 6 - 20 mg/dL [place] LACTATE DEHYDROGENASEon 08-15 LD 161 U/L 135 - 225 U/L [place] Lipaseon 09-11-2019 Lipase [Catalytic activity/Vol] 12 U/L Low 13 - 60 U/L [place] Otheron 09-11-2019 Interpretation and review of laboratory results Abnormal [place] Immature granulocytes (Bld) [#/Vol] NOT REPORTED 0 % [place] Urinalysison 09-11-2019 Bilirubin Urine Negative NEGATIVE [place] Color, UA YELLOW YELLOW [place], [place] Glucose, Ur Negative NEGATIVE [place] Interpretation and review of laboratory results Abnormal [place] Ketones Ql (U) SMALL Abnormal NEGATIVE [place] Leukocyte esterase Test strip Ql (U) Negative NEGATIVE [place] Nitrite, Urine Negative NEGATIVE [place] pH, UA 6.0 [place], [place] Protein (U) [Mass/Vol] Negative NEGATIVE Me [place] Specific [place], UA 1.043 High [place] Turbidity UA CLEAR CLEAR [place] Urinalysis Comments Microscopic exam not performed based on chemical results unless requested in original order. [place] Urine Hgb Negative NEGATIVE [place] Urobilinogen, Urine Normal Normal [place] CBC with DIFFon 09-03-2019 Basophils (Bld) [#/Vol] 0.10 10*3/uL [place] Basophils/100 WBC (Bld) 1 % 0 - 2 % [place] Differential Type NOT REPORTED [place] Eosinophils (Bld) [#/Vol] 0.10 10*3/uL [place] Eosinophils/100 WBC (Bld) 2 % 0 - 4 % [place] Erythrocyte distribution width (RBC) [Ratio] 13.1 % 11.5 - 14.9 % [place] Hematocrit (Bld) [Volume fraction] 39.9 % Low 41 - 53 % [place] Hemoglobin (Bld) [Mass/Vol] 13.5 g/dL 13.5 - 17.5 g/dL [place] Interpretation and review of laboratory results Abnormal [place] Lymphocytes (Bld) [#/Vol] 1.50 10*3/uL [place] Lymphocytes/100 WBC (Bld) 23 % Low 24 - 44 % [place] MCH (RBC) [Entitic mass] 30.0 pg 26 - 34 pg [place] MCHC (RBC) [Mass/Vol] 33.9 g/dL 31 - 37 g/dL [place] MCV (RBC) [Entitic vol] 88.7 fL 80 - 100 fL [place] Monocytes (Bld) [#/Vol] 0.60 10*3/uL [place], [place] Monocytes/100 WBC (Bld) 10 % High 1 - 7 % [place] Platelet mean volume (Bld) [Entitic vol] 7.8 fL 6 - 12 fL [place] Platelets (Bld) [#/Vol] 232 10*3/uL [place] Platelets (Bld) [#/Vol] NOT REPORTED [place] RBC (Bld) [#/Vol] 4.49 10*6/uL Low 4.5 - 5.9 m/uL [place], [place] RBC morphology finding Nom (Bld) NOT REPORTED [place] Segmented neutrophils/100 WBC (Bld) 64 % 36 - 66 % [place] Segs Absolute 4.30 [place] WBC (Bld) [#/Vol] NOT REPORTED per 100 WBC [place] WBC (Bld) [#/Vol] 6.6 10*3/uL [place] WBC Morphology NOT REPORTED [place] Comprehensive Metabolic Pane shant 09-03-2019 Albumin [Mass/Vol] 4.2 g/dL 3.5 - 5.2 g/dL [place] Albumin/Globulin [Mass ratio] NOT REPORTED [place] ALP [Catalytic activity/Vol] 76 U/L 40 - 129 U/L [place] ALT [Catalytic activity/Vol] 19 U/L 5 - 41 U/L [place] Anion gap [Moles/Vol] 12 mmol/L 9 - 17 mmol/L [place] AST [Catalytic activity/Vol] 19 U/L <40 [place] Bilirubin Ql (U) 0.25 mg/dL Low 0.3 - 1.2 mg/dL [place] Bun/Cre Ratio NOT REPORTED [place] Calcium [Mass/Vol] 8.9 mg/dL 8.6 - 10. 4 mg/dL [place] Chloride [Moles/Vol] 97 mmol/L Low 98 - 10 7 mmol/L [place] CO2 [Moles/Vol] 27 mmol/L 20 - 31 mmol/L [place] Creatinine [Mass/Vol] 0.7 mg/dL 0.7 - 1.2 mg/dL [place] GFR >60 >60 mL/min [place] GFR Non- >60 >60 mL/min [place] GFR/1.73 sq M predicted among non-blacks MDRD (S/P/Bld) [Vol rate/Area] NOT REPORTED [place] GFR/1.73 sq M predicted among non-blacks MDRD (S/P/Bld) [Vol rate/Area] [place] Comment on above: Average GFR for 50-5 9 years old: 93 mL/min/1.73sq m Chronic Kidney Disease: <60 mL/min/1.73sq m Kidney failure: <15 mL/min/1.73sq m eGFR calculated using average adult body mass. Additional eGFR calculator available at: http://www.MileWise/multiple_crcl_2012.htm Glucose [Mass/Vol] 245 mg/dL High 70 - 99 mg/dL [place] Interpretation and review of laboratory results Abnormal [place] Potassium [Moles/Vol] 4.5 mmol/L 3.7 - 5.3 mmol/L [place] Protein [Mass/Vol] 7.0 g/dL 6.4 - 8.3 g/dL [place] Sodium [Moles/Vol] 136 mmol/L 135 - 144 mmol/L [place] Urea nitrogen [Mass/Vol] 17 mg/dL 6 - 20 mg/dL [place] Otheron 09-03-2019 Immature granulocytes (Bld) [#/Vol] NOT REPORTED 0 % [place] Urinalysis Reflex to Culture on 09-03-2019 Bilirubin Urine Negative NEGATIVE [place] Color, UA YELLOW YELLOW [place] Glucose, Ur Negative NEGATIVE [place] Ketones Ql (U) Negative NEGATIVE [place] Leukocyte esterase Test strip Ql (U) Negative NEGATIVE [place] Nitrite, Urine Negative NEGATIVE [place] pH, UA 7.0 [place], [place] Protein (U) [Mass/Vol] Negative NEGATIVE [place] Specific [place], UA 1.003 [place], [place] Turbidity UA CLEAR CLEAR [place], [place] Urinalysis Comments Microscopic exam not performed based on chemical results unless requested in original order. [place] Urine Hgb Negative NEGATIVE [place] Urobilinogen, Urine Normal Normal [place] Vital Signs Date Time Vital Sign Value Performing Clinician Faci lity 08-14-2025 14:00-0400 Body height 175.3 cm Chani Weinberg NUCLEAR FUEL 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 Work Phone: [facility] 01-27-2025 14:00-0400 Body mass index (BMI) [Ratio] 21.08 kg/m2 Chani Weinberg NUCLEAR FUEL 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 Work Phone: [facility] 01-27-2025 14:00-0400 Body temperature 97.59 [degF] Chani Weinberg NUCLEAR FUEL 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 [facility] 01-27-2025 14:00-0400 Body weight 64.77 kg Chani Weinberg NUCLEAR FUEL 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 Work Phone: [facility] 01-27-2025 14:00-0400 Diastolic blood pressure 76 mm[Hg] Chani Weinberg NUCLEAR FUEL 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 Work Phone: [facility] 01-27-2025 14:00-0400 Heart rate 84 /min Chani Weinberg NUCLEAR FUEL 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 Work Phone: [facility] 01-27-2025 14:00-0400 SaO2% (BldA) [Mass fraction] 98 % Chani Weinberg NUCLEAR FUEL 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 Work Phone: [facility] 01-27-2025 14:00-0400 Systolic blood pressure 118 mm[Hg] Chani Weinberg NUCLEAR FUEL 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 Work Phone: [facility] 12-09-2024 11:21-0400 Body height 175.3 cm Chani Weinberg NUCLEAR FUEL 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 Work Phone: [facility] 12-09-2024 11:21-0400 Body mass index (BMI) [Ratio] 22.11 kg/m2 Chani Weinberg NUCLEAR FUEL 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 Work Phone: [facility] 12-09-2024 11:21-0400 Body temperature 97.5 [degF] Chani Weinberg APRN-DIRECTOR RECREATION Work Phone: [facility] 12-09-2024 11:21-0400 Body weight 67.95 kg Chani Weinberg APRN-DIRECTOR RECREATION Work Phone: [facility] 12-09-2024 11:21-0400 Diastolic blood pressure 82 mm[Hg] Chani Weinberg APRN-DIRECTOR RECREATION Work Phone: [facility] 12-09-2024 11:21-0400 Heart rate 79 /min Chani Weinberg APRN-DIRECTOR RECREATION Work Phone: [facility] 12-09-2024 11:21-0400 SaO2% (BldA) [Mass fraction] 97 % Chani Weinberg APRN-DIRECTOR RECREATION Work Phone: [facility] 12-09-2024 11:21-0400 Systolic blood pressure 140 mm[Hg] Chani Weinberg APRN-DIRECTOR RECREATION Work Phone: [facility] 10-26-2024 14:01-0400 Body height 175.3 cm Chani Weinberg APRN-DIRECTOR RECREATION Work Phone: [facility] 10-26-2024 14:01-0400 Body mass index (BMI) [Ratio] 22.11 kg/m2 Chani Weinberg APRN-DIRECTOR RECREATION Work Phone: [facility] 10-26-2024 14:01-0400 Body temperature 97.11 [degF] Chani Weinberg APRN-DIRECTOR RECREATION Work Phone: [facility] 10-26-2024 14:01-0400 Body weight 67.95 kg Chani Weinberg APRN-DIRECTOR RECREATION Work Phone: [facility] 10-26-2024 14:01-0400 Diastolic blood pressure 80 mm[Hg] Chani Weinberg APRN-DIRECTOR RECREATION Work Phone: [facility] 10-26-2024 14:01-0400 Heart rate 75 /min Chani Weinberg APRN-DIRECTOR RECREATION Work Phone: [facility] 10-26-2024 14:01-0400 SaO2% (BldA) [Mass fraction] 93 % Chani Weinberg APRN-DIRECTOR RECREATION Work Phone: [facility] 10-26-2024 14:01-0400 Systolic blood pressure 122 mm[Hg] Chani Weinberg APRN-DIRECTOR RECREATION Work Phone: [facility] 07-27-2024 14:06-0500 Body height 175.3 cm Chani Weinberg APRN-DIRECTOR RECREATION Work Phone: [facility] 07-27-2024 14:06-0500 Body mass index (BMI) [Ratio] 22.64 kg/m2 Chani Weinberg APRN-DIRECTOR RECREATION Work Phone: [facility] 07-27-2024 14:06-0500 Body temperature 98.1 [degF] Chani Weinberg APRN-DIRECTOR RECREATION Work Phone: [facility] 07-27-2024 14:06-0500 Body weight 69.58 kg Chani Weinberg APRN-SARAH Work Phone: [facility] 07-27-2024 14:06-0500 Diastolic blood pressure 84 mm[Hg] Chani Weinberg APRN-DIRECTOR RECREATION Work Phone: [facility] 07-27-2024 14:06-0500 Heart rate 73 /min Chani Weinberg APRN-DIRECTOR RECREATION Work Phone: [facility] 07-27-2024 14:06-0500 SaO2% (BldA) [Mass fraction] 98 % Chani Weinberg APRN-DIRECTOR RECREATION Work Phone: [facility] 07-27-2024 14:06-0500 Systolic blood pressure 140 mm[Hg] Chani Weinberg APRN-DIRECTOR RECREATION Work Phone: [facility] 05-31-2024 15:51-0500 Body height 177.8 cm Pratima Cortes COLD STRIP FEEDER Work Phone: [facility] 05-31-2024 15:51-0500 Body mass index (BMI) [Ratio] 21.52 kg/m2 Pratima Cortes COLD STRIP FEEDER Work Phone: [facility] 05-31-2024 15:51-0500 Body temperature 97.7 [degF] Pratima Cortes COLD STRIP FEEDER Work Phone: [facility] 05-31-2024 15:51-0500 Body weight 68.04 kg Pratima Cortes COLD STRIP FEEDER Work Phone: [facility] 05-31-2024 15:51-0500 Diastolic blood pressure 84 mm[Hg] Pratima Cortes COLD STRIP FEEDER Work Phone: [facility] 05-31-2024 15:51-0500 Heart rate 61 /min Pratima Cortes COLD STRIP FEEDER Work Phone: [facility] 05-31-2024 15:51-0500 SaO2% (BldA) [Mass fraction] 99 % Pratima Cortes COLD STRIP FEEDER Work Phone: [facility] 05-31-2024 15:51-0500 Systolic blood pressure 134 mm[Hg] Pratima Cortes COLD STRIP FEEDER Work Phone: [facility] 04-23-2024 13:59-0500 Body height 175.3 cm Chani Weinberg NUCLEAR FUEL 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 Work Phone: [facility] 04-23-2024 13:59-0500 Body mass index (BMI) [Ratio] 22.32 kg/m2 Chani Louieood NUCLEAR FUEL 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 Work Phone: [facility] 04-23-2024 13:59-0500 Body temperature 98.2 [degF] Chani Louieood NUCLEAR FUEL 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 Work Phone: [facility] 04-23-2024 13:59-0500 Body weight 68.58 kg Chani Livingood NUCLEAR FUEL 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 Work Phone: [facility] 04-23-2024 13:59-0500 Diastolic blood pressure 84 mm[Hg] Chani Weinberg APRN-DIRECTOR RECREATION Work Phone: [facility] 04-23-2024 13:59-0500 Heart rate 84 /min Chani Weinberg NUCLEAR FUEL 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 Work Phone: [facility] 04-23-2024 13:59-0500 SaO2% (BldA) [Mass fraction] 99 % Chani Weinberg NUCLEAR FUEL 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 Work Phone: [facility] 04-23-2024 13:59-0500 Systolic blood pressure 130 mm[Hg] Chani Weinberg NUCLEAR FUEL 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 Work Phone: [facility] 03-19-2024 14:02-0400 Body mass index (BMI) [Ratio] 21.61 kg/m2 Chani Weinberg APRN-DIRECTOR RECREATION Work Phone: [facility] 03-19-2024 14:02-0400 Body temperature 97.9 [degF] Chani Weinberg APRN-DIRECTOR RECREATION Work Phone: [facility] 03-19-2024 14:02-0400 Body weight 66.41 kg Chani Weinberg NUCLEAR FUEL 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 Work Phone: [facility] 03-19-2024 14:02-0400 Diastolic blood pressure 80 mm[Hg] Chani Weinberg NUCLEAR FUEL 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 Work Phone: [facility] 03-19-2024 14:02-0400 Heart rate 86 /min Chani Weinberg NUCLEAR FUEL 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 Work Phone: [facility] 03-19-2024 14:02-0400 SaO2% (BldA) [Mass fraction] 97 % Chani Weinberg NUCLEAR FUEL 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 Work Phone: [facility] 03-19-2024 14:02-0400 Systolic blood pressure 130 mm[Hg] Chani Weinberg APRN-DIRECTOR RECREATION Work Phone: [facility] 02-17-2024 11:39-0400 Body mass index (BMI) [Ratio] 21.82 kg/m2 Chani Weinberg APRN-DIRECTOR RECREATION Work Phone: [facility] 02-17-2024 11:39-0400 Body temperature 98.8 [degF] Chani Weinberg APRN-DIRECTOR RECREATION Work Phone: [facility] 02-17-2024 11:39-0400 Body weight 67.04 kg Chani Weinberg APRN-DIRECTOR RECREATION Work Phone: [facility] 02-17-2024 11:39-0400 Diastolic blood pressure 80 mm[Hg] Chani Weinberg APRN-DIRECTOR RECREATION Work Phone: [facility] 02-17-2024 11:39-0400 Heart rate 71 /min Chani Weinberg APRN-DIRECTOR RECREATION Work Phone: [facility] 02-17-2024 11:39-0400 SaO2% (BldA) [Mass fraction] 96 % Chani Weinberg APRN-SARAH Work Phone: [facility] 02-17-2024 11:39-0400 Systolic blood pressure 140 mm[Hg] Chani Weinberg APRN-DIRECTOR RECREATION Work Phone: [facility] 01-30-2024 16:06-0400 Body height 175.3 cm Chani Weinberg APRN-DIRECTOR RECREATION Work Phone: [facility] 01-30-2024 16:06-0400 Body mass index (BMI) [Ratio] 21.82 kg/m2 Chani Weinberg APRN-DIRECTOR RECREATION Work Phone: [facility] 01-30-2024 16:06-0400 Body temperature 98.4 [degF] Chani Weinberg APRN-DIRECTOR RECREATION Work Phone: [facility] 01-30-2024 16:06-0400 Body weight 67.04 kg Chani Weinberg NUCLEAR FUEL 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 Work Phone: [facility] 01-30-2024 16:06-0400 Diastolic blood pressure 80 mm[Hg] Chani Weinberg NUCLEAR FUEL 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 Work Phone: [facility] 01-30-2024 16:06-0400 Heart rate 69 /min Chani Weinberg NUCLEAR FUEL 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 Work Phone: [facility] 01-30-2024 16:06-0400 SaO2% (BldA) [Mass fraction] 94 % Chani Weinberg NUCLEAR FUEL 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 Work Phone: [facility] 01-30-2024 16:06-0400 Systolic blood pressure 120 mm[Hg] Chani Weinberg NUCLEAR FUEL 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 Work Phone: [facility] 12-22-2023 14:37-0400 Blood Pressure Location Kim ORTIZ [facility] 12-22-2023 14:37-0400 Body temperature 98.6 [degF] Kimmarianne ORTIZ [facility] 12-22-2023 14:37-0400 Diastolic blood pressure 77 mm[Hg] Kim ORTIZ [facility] 12-22-2023 14:37-0400 Heart rate 82 /min Kim ORTIZ [facility] 12-22-2023 14:37-0400 Respiratory rate 16 /min Kim ORTIZ [facility] 12-22-2023 14:37-0400 Systolic blood pressure 134 mm[Hg] [facility] 12-09-2023 14:03-0400 Body height 175.3 cm Chani Weinberg NUCLEAR FUEL 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 Work Phone: [facility] 12-09-2023 14:03-0400 Body mass index (BMI) [Ratio] 22.23 kg/m2 Chani Weinberg NUCLEAR FUEL 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 Work Phone: [facility] 12-09-2023 14:03-0400 Body temperature 98.6 [degF] Chani Weinberg NUCLEAR FUEL 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 Work Phone: [facility] 12-09-2023 14:03-0400 Body weight 68.31 kg Chani Weinberg NUCLEAR FUEL 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 Work Phone: [facility] 12-09-2023 14:03-0400 Diastolic blood pressure 80 mm[Hg] Chani Weinberg NUCLEAR FUEL 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 Work Phone: [facility] 12-09-2023 14:03-0400 Heart rate 82 /min Chani Weinberg NUCLEAR FUEL 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 Work Phone: [facility] 12-09-2023 14:03-0400 SaO2% (BldA) [Mass fraction] 96 % Chani Weinberg NUCLEAR FUEL 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 Work Phone: [facility] 12-09-2023 14:03-0400 Systolic blood pressure 120 mm[Hg] Chani Weinberg NUCLEAR FUEL 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 Work Phone: [facility] 10-16-2023 15:00-0400 Body height 175.3 cm Chani Weinberg NUCLEAR FUEL 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 Work Phone: [facility] 10-16-2023 15:00-0400 Body mass index (BMI) [Ratio] 22.2 kg/m2 Chani Weinberg NUCLEAR FUEL 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 Work Phone: [facility] 10-16-2023 15:00-0400 Body temperature 97.5 [degF] Chani GARZON Work Phone: [employer] 10-16-2023 15:00-0400 Body weight 68.22 kg Chani Weinberg APRN-SARAH Work Phone: [employer] 10-16-2023 15:00-0400 Diastolic blood pressure 82 mm[Hg] Chani Weinberg APRN-SARAH [facility]: [facility] 10-16-2023 15:00-0400 Heart rate 77 /min Chani Weinberg APRN-SARAH Work Phone: [employer] 10-16-2023 15:00-0400 SaO2% (BldA) [Mass fraction] 97 % Chani Weinberg APRN-SARAH Work Phone: [employer] 10-16-2023 15:00-0400 Systolic blood pressure 120 mm[Hg] Chani Weinberg APRN-SARAH Work Phone: [facility] 10-06-2023 13:57-0400 Body height 175.3 cm Chas Hapner DO Work Phone: [facility] 10-06-2023 13:57-0400 Body mass index (BMI) [Ratio] 22.64 kg/m2 Chas Hapner DO Work Phone: [facility] 10-06-2023 13:57-0400 Body temperature 97.81 [degF] Chas Hapner DO Work Phone: [employer] 10-06-2023 13:57-0400 Body weight 69.58 kg Chas Hapner DO Work Phone: [facility] 10-06-2023 13:57-0400 Diastolic blood pressure 82 mm[Hg] Chas Hapner DO Work Phone: [facility] 10-06-2023 13:57-0400 Heart rate 64 /min Chas Hapner DO Work Phone: [employer] 10-06-2023 13:57-0400 SaO2% (BldA) [Mass fraction] 98 % Chas Roman DO Work Phone: [employer] 10-06-2023 13:57-0400 Systolic blood pressure 124 mm[Hg] Chas Roman DO Work Phone: [employer] 09-04-2023 15:01-0400 Body height 175.3 cm Chani Weinberg NUCLEAR FUEL 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 Work Phone: [employer] 09-04-2023 15:01-0400 Body mass index (BMI) [Ratio] 22.88 kg/m2 Chani Livingmikel NUCLEAR FUEL 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 Work Phone: [employer] 09-04-2023 15:01-0400 Body temperature 98.1 [degF] Chani Weinberg NUCLEAR FUEL 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 Work Phone: [employer] 09-04-2023 15:01-0400 Body weight 70.31 kg Chani Weinberg NUCLEAR FUEL 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 Work Phone: [employer] 09-04-2023 15:01-0400 Diastolic blood pressure 82 mm[Hg] Chani Weinberg NUCLEAR FUEL 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 Work Phone: [employer] 09-04-2023 15:01-0400 Heart rate 76 /min Chani Weinberg NUCLEAR FUEL 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 Work Phone: [employer] 09-04-2023 15:01-0400 SaO2% (BldA) [Mass fraction] 96 % Chani Weinberg NUCLEAR FUEL 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 Work Phone: [employer] 09-04-2023 15:01-0400 Systolic blood pressure 130 mm[Hg] Chani Weinberg NUCLEAR FUEL 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 Work Phone: [employer] 07-10-2023 14:56-0500 Body height 175.3 cm Chani Weinberg APRN-DIRECTOR RECREATION [facility] Phone[facility] 07-10-2023 14:56-0500 Body mass index (BMI) [Ratio] 23.09 kg/m2 Chani Weinberg APRN-DIRECTOR RECREATION Work Phone: [facility] 07-10-2023 14:56-0500 Body temperature 98.4 [degF] Chani Weinberg APRN-DIRECTOR RECREATION Work Phone: [facility] [employer] 07-10-2023 14:56-0500 Body weight 70.94 kg Chani Weinberg APRN-DIRECTOR RECREATION Work Phone: [facility] 07-10-2023 14:56-0500 Diastolic blood pressure 82 mm[Hg] Chani Weinberg APRN-DIRECTOR RECREATION Work Phone: [facility] 07-10-2023 14:56-0500 Heart rate 84 /min Chani Weinberg APRN-DIRECTOR RECREATION Work Phone: [facility] [employer] 07-10-2023 14:56-0500 SaO2% (BldA) [Mass fraction] 97 % Chani Weinberg APRN-SARAH Work Phone: [facility] 07-10-2023 14:56-0500 Systolic blood pressure 122 mm[Hg] Chani Weinberg APRN-DIRECTOR RECREATION Work Phone: [facility] 06-06-2023 14:51-0500 Body height 175.3 cm Chani Weinberg APRN-DIRECTOR RECREATION Work Phone: [facility] 06-06-2023 14:51-0500 Body mass index (BMI) [Ratio] 22.64 kg/m2 Chani Weinberg APRN-DIRECTOR RECREATION Work Phone: [facility] 06-06-2023 14:51-0500 Body temperature 97.3 [degF] Chani Weinberg APRN-DIRECTOR RECREATION Work Phone: [facility] 06-06-2023 14:51-0500 Body weight 69.58 kg Chani Weinberg APRN-DIRECTOR RECREATION Work Phone: [facility] 06-06-2023 14:51-0500 Diastolic blood pressure 76 mm[Hg] Chani Weinberg APRN-DIRECTOR RECREATION Work Phone: [facility] 06-06-2023 14:51-0500 Heart rate 72 /min Chani Weinberg APRN-DIRECTOR RECREATION Work Phone: [facility] 06-06-2023 14:51-0500 SaO2% (BldA) [Mass fraction] 99 % Chani Weinberg APRN-DIRECTOR RECREATION Work Phone: [facility] 06-06-2023 14:51-0500 Systolic blood pressure 120 mm[Hg] Chani Weinberg APRN-DIRECTOR RECREATION Work Phone: [facility] [employer] 10-30-2021 13:49-0400 Body temperature 97.11 [degF] Colton Romero MD Work Phone: [employer] 10-30-2021 13:49-0400 Diastolic blood pressure 63 mm[Hg] Colton Romero MD [facility] Phone: [facility] 10-30-2021 13:49-0400 Heart rate 60 /min Colton Romero MD Work Phone: [employer] 10-30-2021 13:49-0400 Respiratory rate 12 /min Colton Romero MD Work Phone: [employer] 10-30-2021 13:49-0400 SaO2% (BldA) [Mass fraction] 99 % Colton Romero MD Work Phone: [employer] 10-30-2021 13:49-0400 Systolic blood pressure 116 mm[Hg] Colton Romero MD Work Phone: [employer] 10-30-2021 11:30-0400 Body height 177.8 cm Colton Romero MD Work Phone: [facility] 10-30-2021 11:30-0400 Body mass index (BMI) [Ratio] 22.24 kg/m2 Colton Romero MD Work Phone: [employer] 10-30-2021 11:30-0400 Body weight 70.31 kg Colton Romero MD Work Phone: [employer] 10-18-2021 14:21-0400 Body height 177.8 cm [facility] [employer] 10-18-2021 14:21-0400 Body mass index (BMI) [Ratio] 22.24 kg/m2 [facility] [employer] 10-18-2021 14:21-0400 Body weight 70.31 kg [facility] [employer] 07-31-2020 18:54-0500 BMI (Body Mass Index) 22.96 kg/m2 [employer] Work Phone: 07-31-2020 18:54-0500 Body Temperature 98.1 [degF] [employer] Work Phone: 07-31-2020 18:54-0500 Body weight 72.58 kg [facility] Work Phone: 07-31-2020 18:54-0500 Height 177.8 cm [facility] Work Phone: 07-31-2020 18:54-0500 Pulse (Heart Rate) 82 /min [facility] [employer] Work Phone: 07-31-2020 18:54-0500 Pulse Oximetry 97 % [facility] Work Phone: 07-31-2020 18:54-0500 Respiratory Rate 18 /min [employer] Work Phone: 09-11-2019 09:26-0400 BMI (Body Mass Index) 22.96 kg/m2 [email or web address] [place], [place] 09-11-2019 09:26-0400 Body Temperature 97.5 [degF] [email or web address] [place] 09-11-2019 09:26-0400 Body weight 72.58 kg Freddie [facility] , [place] 09-11-2019 09:26-0400 BP Diastolic 87 mm[Hg] Freddie [facility] , [place] 09-11-2019 09:26-0400 BP Systolic 144 mm[Hg] Freddie [facility] , [place] 09-11-2019 [id number] Height 177.8 cm Freddie [facility] , [place] 09-11-2019 09:26-0400 Pulse (Heart Rate) 92 /min Freddie [facility], [place] 09-11-2019 09:26-0400 Pulse Oximetry 99 % Freddie [facility] , [place] 09-11-2019 09:26-0400 Respiratory Rate 14 /min Freddie [facility], [place] 09-03-2019 14:07-0400 BMI (Body Mass Index) 22.53 kg/m2 [facility] [place] 09-03-2019 14:07-0400 Body Temperature 97.81 [degF] [facility] [place] 09-03-2019 14:07-0400 Body weight 71.22 kg Tello [facility], [place] 09-03-2019 14:07-0400 BP Diastolic 93 mm[Hg] [facility] [place] 09-03-2019 14:07-0400 BP Systolic 153 mm[Hg] [facility] [place] 09-03-2019 14:07-0400 Pulse (Heart Rate) 75 /min Tello [facility], [place] 09-03-2019 14:07-0400 Pulse Oximetry 100 % [facility], [place] 09-03-2019 14:07-0400 Respiratory Rate 14 /min [place], [place] Encounters Encounter Date Encounter Type Care Provider Facility Start: 07-25-2025 ambulatory Kim Stanley ty:ANCELMO Kwok Start: 03-26-2025 End: 03-26-2025 Clinisync Result Encounter Generic External Data Provider [facility] External Department Unsolicited Start: 03-26-2025 End: 03-26-2025 Clinisync Result Encounter Generic External Data Provider [facility] External Department Unsolicited Start: 01-27-2025 End: 01-27-2025 ambulatory [facility] Start: 01-27-2025 End: 01-27-2025 Office outpatient visit 25 minutes [facility] NUCLEAR FUEL 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 Work Phone: [facility] Comment on above: Diabetes mellitus ty pe 1, controlled, insulin dependent ([facility]) (Primary Dx); Mixed hyperlipidemia; Encounter for screening for malignant neoplasm of prostate; Recurrent productive cough; Encounter for screening for depression Start: 01-27-2025 End: 01-27-2025 ambulatory [facility] Start: 01-24-2025 End: 01-24-2025 ambulatory Kim ORTIZ Facility:[facility] Start: 01-24-2025 End: 01-24-2025 Patient encounter procedure Kim ORTIZ [facility] Start: 01-17-2025 End: 01-19-2025 Clinisync Result Encounter Generic External Data Provider [facility] External Department Unsolicited Start: 01-17-2025 End: 01-19-2025 Clinisync Result Encounter Generic External Data Provider [facility] External Department Unsolicited Start: 12-09-2024 End: 12-09-2024 Office outpatient visit 15 minutes [facility] NUCLEAR FUEL 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 Work Phone: [facility] Comment on above: Non-recurrent acute suppurative otitis media of right ear without spontaneous rupture of tympanic membrane (Primary Dx); Cerumen debris on tympanic membrane of right ear; Otitis interna, right Start: 12-09-2024 End: 12-09-2024 ambulatory [facility] Start: 10-26-2024 End: 10-26-2024 Office outpatient visit 25 minutes [facility] NUCLEAR FUEL 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 Work Phone: [facility] Comment on above: Diabetes mellitus ty pe 1, controlled, insulin dependent ([facility]) (Primary Dx); Mixed hyperlipidemia Start: 10-26-2024 End: 10-26-2024 ambulatory [facility] Start: 10-17-2024 End: 10-17-2024 Refill Chani Fernandez [facility] NUCLEAR FUEL 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 Work Phone: [facility] Start: 10-02-2024 End: 10-02-2024 Refill Chani Fernandez [facility] NUCLEAR FUEL 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 Work Phone: [facility] Comment on above: Diabetes mellitus ty pe 1, controlled, insulin dependent ([facility]) Start: 07-27-2024 End: 07-27-2024 Office outpatient visit 40 minutes Chani Fernandez [facility] NUCLEAR FUEL 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 Work Phone: [facility] Comment on above: Diabetes mellitus ty pe 1, controlled, insulin dependent ([facility]) (Primary Dx); Mixed hyperlipidemia; Need for pneumococcal 20-valent conjugate vaccination Start: 07-27-2024 End: 07-27-2024 ambulatory [facility] Start: 06-20-2024 End: 06-21-2024 Refill Chani Fernandez [facility] NUCLEAR FUEL 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 Work Phone: [facility] Comment on above: Type 1 diabetes donna itus with hyperglycemia ([facility]) Start: 05-31-2024 End: 05-31-2024 Office outpatient visit 15 minutes Pratima Cortes NP Work Phone: [facility] Comment on above: Impacted cerumen, ri ght ear (Primary Dx); Diabetes mellitus type 1, controlled, insulin dependent ([facility]); Acute ear pain, right; Chronic sinusitis, unspecified location Start: 05-31-2024 End: 05-31-2024 ambulatory PRATIMA CORTES Not Available Start: 05-31-2024 End: 05-31-2024 Bamboo flowsheet Pratima Cortes COLD STRIP FEEDER Work Phone: [facility] Start: 05-31-2024 End: 05-31-2024 Bamboo flowsheet Pratima Cortes COLD STRIP FEEDER Work Phone: [facility] Start: 04-23-2024 End: 04-23-[address] [facility] Start: 04-23-2024 Encounter for genera l adult medical examination without abnormal findings [facility] Start: 04-23-2024 End: 04-23-2024 Patient encounter procedure [facility] NUCLEAR FUEL 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 Work Phone: [facility] Start: 04-23-2024 End: 04-23-2024 Periodic preventive med est patient 40-64yrs [facility] NUCLEAR FUEL 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 Work Phone: [facility] Comment on above: Diabetes mellitus ty pe 1, controlled, insulin dependent ([facility]) (Primary Dx); Mixed hyperlipidemia; Prostate cancer screening; Encounter for annual wellness visit Start: 04-23-2024 End: 04-23-2024 ambulatory [facility] Start: 04-23-2024 Encounter for genera l adult medical examination without abnormal findings [facility] Start: 03-19-2024 End: 03-19-2024 Office outpatient visit 25 minutes [facility] NUCLEAR FUEL 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 Work Phone: [facility] Comment on above: Diabetes mellitus ty pe 1, controlled, insulin dependent ([facility]) (Primary Dx); Bilateral foot pain; Need for shingles vaccine; Need for immunization against influenza Start: 03-19-2024 End: 03-19-2024 ambulatory [facility] Start: 02-17-2024 End: 02-17-2024 Office outpatient visit 25 minutes [facility] NUCLEAR FUEL 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 Work Phone: [facility] Comment on above: Diabetes mellitus ty pe 1, controlled, insulin dependent ([facility]) (Primary Dx); Numbness and tingling of right arm and leg Start: 02-17-2024 End: 02-17-2024 ambulatory CHANIJAYCOB WEINBERG [facility] Start: 01-30-2024 End: 01-30-2024 [facility] NUCLEAR FUEL 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 Work Phone: [facility] Comment on above: Diabetes mellitus ty pe 1, controlled, insulin dependent ([facility]) (Primary Dx); Mixed hyperlipidemia; Contusion of right upper extremity, initial encounter; Need for shingles vaccine Start: 12-22-2023 End: 12-22-2023 Patient encounter procedure Kim ORTIZ [facility] Start: 12-16-2023 End: 12-18-2023 ambulatory ALEJANDRO UMAÑA [facility] Start: 12-16-2023 End: 12-18-2023 Subsequent hospital visit by physician Alejandro Umaña MD Work Phone: [facility] Comment on above: Intractable tension- type headache, unspecified chronicity pattern Start: 12-16-2023 End: 12-16-2023 ambulatory ALEJANDRO UMAÑA Not Available Start: 12-09-2023 End: 12-09-2023 Office outpatient visit 40 minutes Chani Weinberg NUCLEAR FUEL 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 Work Phone: [facility] Comment on above: Diabetes mellitus ty pe 1, controlled, insulin dependent ([facility]) (Primary Dx) Start: 10-16-2023 End: 10-16-2023 Office outpatient visit 25 minutes Chani Weinberg NUCLEAR FUEL 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 Work Phone: [facility] Comment on above: History of elevated PSA (Primary Dx); Diabetes mellitus type 1, controlled, insulin dependent (CMS-HCC) Start: 10-06-2023 End: 10-06-2023 Office outpatient visit 25 minutes Chas Roman DO Work Phone: [facility] Comment on above: Otalgia of right ear (Primary Dx) Start: 10-03-2023 End: 10-03-2023 ambulatory Alejandro Umaña Facility:[facility] Start: 10-03-2023 End: 10-03-2023 ambulatory MD Alejandro Umaña Work Phone: [facility] Work Phone: Start: 10-03-2023 End: 10-03-2023 Patient encounter procedure MD Alejandro Umaña Work Phone: [facility] Work Phone: Start: 09-04-2023 End: 09-04-2023 Office outpatient visit 40 minutes Chani Weinberg NUCLEAR FUEL 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 Work Phone: [facility] Comment on above: Diabetes mellitus ty pe 1, controlled, insulin dependent ([facility]) (Primary Dx); Mixed hyperlipidemia Start: 08-19-2023 Documentation procedure Tong Daugherty [facility] Work Phone: [facility] Start: 07-10-2023 End: 07-10-2023 Office outpatient visit 40 minutes Chani Weinberg NUCLEAR FUEL 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 Work Phone: [facility] Comment on above: Diabetes mellitus ty pe 1, controlled, insulin dependent (CMS- HCC) (Primary Dx); 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 Start: 06-06-2023 End: 06-06-2023 ambulatory CHANI WEINBERG [facility] Start: 06-06-2023 End: 06-06-2023 Office outpatient visit 25 minutes Chani Weinberg NUCLEAR FUEL 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 Work Phone: [facility] Comment on above: Diabetes mellitus ty pe 1, controlled, insulin dependent (CMS- HCC) (Primary Dx) Start: 01-03-2023 End: 01-03-2023 ambulatory ALEJANDRO [facility] Start: 12-27-2022 End: 12-27-2022 ambulatory [facility] Start: 08-06-2022 End: 08-07-[address] KIM ORTIZ . Facility: Start: 10-30-2021 End: 10-30-2021 Subsequent hospital visit by physician Colton Romero MD Work Phone: [facility] Start: 10-18-2021 End: 10-22-2021 Subsequent hospital visit by physician Juhi Zuniga 4 [facility] Pre-Admit Testing Start: 10-11-2021 End: 10-12-2021 ambulatory ADA Spivey [facility] Start: 10-11-2021 End: 10-11-2021 Subsequent hospital visit by physician Alejandro Umaña Other Phone: [facility] Start: 07-31-2020 End: 07-31-2020 Emergency department patient visit Sebastian Allen Work Phone: [facility] Comment on above: Abrasion of left low er extremity, initial encounter (Primary Dx) Start: 10-15-2019 End: 10-15-2019 Subsequent hospital visit by physician Alejandro BERMUDEZ Laboratory Start: 09-11-2019 End: 09-11-2019 Emergency department patient visit Freddie Feliz Work Phone: [facility] Comment on above: Abdominal pain, righ t lower quadrant (Primary Dx); Constipation, unspecified constipation type Start: 09-03-2019 End: 09-03-2019 Emergency department patient visit Tello Simpson Work Phone: [facility] Comment on above: Urinary retention (P rimary Dx) Procedures Date Procedure Procedure Detail Performing Clinician Start: 03-26-2025 XR ABDOMEN 1V Generic E xternal Data Provider Start: 03-26-2025 US RENAL BI Generic Ex ternal Data Provider Start: 01-27-2025 Adult depression scr eening assessment Chani Weinberg NUCLEAR FUEL 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 Work Phone: Start: 01-17-2025 PSA TOTAL+% FREE Generi c External Data Provider Start: 10-26-2024 Hemoglobin glycosyla eden a1c Chani Weinberg NUCLEAR FUEL 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 Work Phone: Start: 07-27-2024 Hemoglobin glycosyla eden a1c Chani Weinberg NUCLEAR FUEL 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 Work Phone: Start: 04-23-2024 Gluc bld gluc mntr d ev cleared fda spec home use Chani Weinberg NUCLEAR FUEL 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 Work Phone: Start: 04-23-2024 Microalbumin [Mass/v olume] in Urine by Test strip Chani Weinberg NUCLEAR FUEL 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 Work Phone: Start: 03-19-2024 Follow-up visit Follow-up CHANI WEINBERG Start: 01-30-2024 Hemoglobin glycosyla eden a1c Chani Weibnerg NUCLEAR FUEL 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 Work Phone: Start: 12-16-2023 Ct head/brain w/o co ntrast material Alejandro Umaña MD Work Phone: Start: 12-09-2023 Hemoglobin glycosyla eden a1c Chani Weinberg NUCLEAR FUEL 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 Work Phone: Start: 09-04-2023 Hemoglobin glycosyla eden a1c Chani Weinberg NUCLEAR FUEL 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 Work Phone: Start: 06-06-2023 Hemoglobin glycosyla eden a1c Chani Weinberg NUCLEAR FUEL 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 Work Phone: Start: 06-06-2023 Microalbumin [Mass/v olume] in Urine by Test strip Chani Weinberg NUCLEAR FUEL 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 Work Phone: Start: 08-06-[address] MAURICE ORTIZ . Comment on above: Performed By: #### P SAD #### [facility] [address] [place] [address] Dr. Katherine Matute Start: 10-30-2021 Glucose blood reagen t strip Colton Romero MD Work Phone: Start: 10-30-2021 Colonoscopy Alejandro galan MD Work Phone: Start: 10-11-2021 Urine albumin quantitative Ada Akhtar CPNP Work Phone: Start: 10-11-2021 Microalbumin [Mass/v olume] in Urine by Test strip Chani Weinberg NUCLEAR FUEL 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 Work Phone: Start: 10-15-2019 Iaad ia rotavirus [...] Blood count complete auto&auto difrntl wbc Tello Farida Simpson Work Phone: Start: 09-03-2019 Comprehensive metabo lic panel Tello Iqbal Calvin Work Phone: Start: 07-17-2014 Colonoscopy Alejandro galan Other Phone: Start: 05-18-2009 Cystoscopy Kim TAYLOR Colonoscopy Kim ORTIZ Plan of Treatment Date Care Activity Detail Author Start: 10-31-2031 Screening for malignant neoplasm of colon [facility] Start: 2027 Pneumococcal 0-64 years Vaccine (3 - PPSV23 or PCV20) Pneumococcal 0-64 years Vaccine (3 - PPSV23 or PCV20) [facility] Start: 2027 Pneumococcal 0-64 years Vaccine (3 of 3 - PPSV23 or PCV20) Pneumococcal 0-64 years Vaccine (3 of 3 - PPSV23 or PCV20) [facility] Start: 01-27-2026 Adult BMI Screening Adult BMI Screening [facility] Start: 01-27-2026 Depression Screening Depression Screening [facility] Start: 01-27-2026 Tobacco Screening Tobacco Screening [facility] Start: 10-26-2025 Adult BMI Screening Adult BMI Screening [facility] Start: 10-26-2025 COVID-19 Vaccine ( season) COVID-19 Vaccine ( season) [facility] Comment on above: Postponed from 02/15/2024 (Vaccine Not A vailable) Start: 10-26-2025 DTaP,Tdap and Td Vaccines (1 - Tdap) DTaP,Tdap and Td Vaccines (1 - Tdap) [facility] Comment on above: Postponed from 1981 (Patient Refus ed) Start: 10-26-2025 Tobacco Screening Tobacco Screening [facility] Start: 10-17-2025 Statin Use: Diabetic Statin Use: Diabetic [facility] Start: 07-27-2025 Adult BMI Screening Adult BMI Screening [facility] Start: 07-27-2025 Diabetic foot examination Diabetic Foot Exam [facility] Start: 07-27-2025 Tobacco Screening Tobacco Screening [facility] Start: 04-29-2025 End: 04-29-2025 Patient encounter procedure 04/29/2025 3:00 PM EST Office Visit [facility] [address] [place] [address] Chani Weinberg, NUCLEAR FUEL 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 [address] [place] [address] [facility] Start: 04-29-2025 Hemoglobin A1c measurement Diabetes: Hemoglobin A1C [facility] Start: 04-23-2025 Adult BMI Screening Adult BMI Screening [facility] Start: 04-23-2025 Tobacco Screening Tobacco Screening [facility] Start: 04-23-2025 Urine screening for protein [facility] Start: 03-19-2025 Adult BMI Screening Adult BMI Screening [facility] Start: 03-19-2025 Diabetic foot examination Diabetic Foot Exam [facility] Start: 03-19-2025 Tobacco Screening Tobacco Screening [facility] Start: 02-16-2025 Adult BMI Screening Adult BMI Screening [facility] Start: 02-16-2025 Tobacco Screening Tobacco Screening [facility] Start: 02-14-2025 Influenza vaccination [facility] Start: 01-29-2025 Adult BMI Screening Adult BMI Screening [facility] Start: 01-29-2025 Tobacco Screening Tobacco Screening [facility] Start: 01-27-2025 End: 01-27-2025 Patient encounter procedure 01/27/2025 2:00 PM EDT Office Visit [facility] [address] [place] [address] Chani Weinberg, NUCLEAR FUEL 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 [address] [place] [address] [facility] Start: 12-08-2024 Adult BMI Screening Adult BMI Screening [facility] Start: 12-08-2024 Tobacco Screening Tobacco Screening [facility] Start: 10-26-2024 End: 10-26-2024 Patient encounter procedure 10/26/2024 2:00 PM EDT Office Visit [facility] [address] [facility] [address] Chani Weinberg, NUCLEAR FUEL 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 [address] [place] [address] [facility] Start: 10-15-2024 Adult BMI Screening Adult BMI Screening [facility] Start: 10-15-2024 Tobacco Screening Tobacco Screening [facility] Start: 10-05-2024 Adult BMI Screening Adult BMI Screening [facility] Start: 09-03-2024 Adult BMI Screening Adult BMI Screening [facility] Start: 09-03-2024 Tobacco Screening Tobacco Screening [facility] Start: 07-27-2024 End: 07-27-2024 Patient encounter procedure 07/27/2024 2:00 PM EST Office Visit [facility] [address] [place] [address] Chani Weinberg, NUCLEAR FUEL 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 [address] [place] [address] [facility] Start: 07-24-2024 Hemoglobin A1c measurement Diabetes: Hemoglobin A1C [facility] Start: 07-17-2024 Colon cancer screen colonoscopy Colon cancer screen colonoscopy [place] Start: 07-17-2024 Screening for malignant neoplasm of colon [facility] Start: 07-10-2024 Adult BMI Screening Adult BMI Screening [facility] Start: 07-10-2024 Tobacco Screening Tobacco Screening [facility] Start: 06-06-2024 Adult BMI Screening Adult BMI Screening [facility] Start: 06-06-2024 Tobacco Screening Tobacco Screening [facility] Start: 06-06-2024 Urine screening for protein Urine Microalbumin [facility] Start: 05-31-2024 End: 05-31-2024 Patient encounter procedure 05/31/2024 4:00 PM EST Office Visit BRENDA LOPEZ [address] [place] [address] Pratima CortesWILDER [address] [place] [address] Arrived [facility] Comment on above: Arrived Start: 05-04-2024 End: 05-04-2024 Patient encounter procedure 05/04/2024 4:00 PM EST Office Visit [facility] [address] [place] [address] Chani Weinberg, NUCLEAR FUEL 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 [address] [place] [address] [facility] Start: 04-23-2024 End: 04-23-2024 Patient encounter procedure 04/23/2024 2:00 PM EST Office Visit [facility] [address] [place] [address] Chani Weinberg, NUCLEAR FUEL 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 [address] [place] [address] [facility] Start: 03-26-2024 Administration of varicella zoster vaccine Zoster (Shingles) Vaccine (2 of 2) [facility] Start: 03-09-2024 End: 03-09-2024 Patient encounter procedure 03/09/2024 4:00 PM EDT Office Visit [facility] [address] [place] [address] Chani Weinberg, NUCLEAR FUEL 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 [address] [place] [address] [facility] Start: 02-15-2024 COVID-19 Vaccine ( season) COVID-19 Vaccine ( season) [facility] Start: 02-15-2024 Influenza vaccination Influenza Vaccine [facility] Start: 02-14-2024 Diabetic foot examination Diabetic Foot Exam [facility] Start: 01-16-2024 End: 01-16-2024 Patient encounter procedure 01/16/2024 3:00 PM EDT Office Visit [facility] [address] [place] [address] Chani Weinberg, NUCLEAR FUEL 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 [address] [place] [address] [facility] Start: 01-15-2024 Influenza vaccination Flu vaccine (#1) [facility] Start: 11-27-2023 GFR test (Diabetes, CKD 3-4, OR last GFR 15-59) GFR test (Diabetes, CKD 3-4, OR last GFR 15-59) [facility] Start: 10-16-2023 End: 10-16-2023 Patient encounter procedure 10/16/2023 3:00 PM EDT Office Visit [facility] [address] [place] [address] Chani Weinberg, NUCLEAR FUEL 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 [address] [place] [address] [facility] Start: 10-03-2023 MR Prostate WO and W contrast IV [facility] Start: 10-03-2023 MR prostate wo/w con MR prostate wo/w con [facility] Start: 09-04-2023 End: 09-04-2023 Patient encounter procedure 09/04/2023 3:00 PM EDT Office Visit [facility] [address] [place] [address] Chani Weinberg, NUCLEAR FUEL 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 [address] [place] [address] [facility] Start: 05-23-2023 Glaucoma screening Diabetes: Retinopathy Screening [facility] Start: 02-14-2023 Influenza vaccination Influenza Vaccine [facility] Start: 10-11-2022 Urine screening for protein [facility] Start: 10-03-2022 Lipid panel Lipids [facility] Start: 2022 Respiratory Syncytial Virus (RSV) or age 60 yrs+ (1 - 1-dose 60+ series) Respiratory Syncytial Virus (RSV) or age 60 yrs+ (1 - 1-dose 60+ series) [facility] Start: 02-14-2022 Influenza vaccination Flu vaccine (Season Ended) [facility] Start: 10-30-2021 End: 10-30-2021 Colonoscopy flx dx w/collj spec when pfrmd COLORECTAL CANCER SCREENING, NOT HIGH RISK SCREEN FOR COLON CANCER 10/30/2021 12:05 PM EDT [facility] Start: 10-30-2021 End: 10-30-2021 Admission to same day surgery center 10/30/2021 Surgery IP Unit Colton Romero MD [address] [address] COLORECTAL CANCER SCREENING, NOT HIGH RISK [facility] Comment on above: COLORECTAL CANCER SCREENING, NOT HIGH RI SK Start: 10-30-2021 End: 10-30-2021 Colonoscopy flx dx w/collj spec when pfrmd COLORECTAL CANCER SCREENING, NOT HIGH RISK SCREEN FOR COLON CANCER 10/30/2021 7:30 AM EDT [facility] Start: 10-30-2021 Subsequent hospital visit by physician 10/30/2021 Hospital Encounter IP Unit Colton Romero MD [address] [facility] [address] [place] [address] [facility] Start: 06-19-2021 DTaP/Tdap/Td vaccine (1 - Tdap) DTaP/Tdap/Td vaccine (1 - Tdap) [place] Comment on above: Postponed from 1981 (Patient Refus ed) Start: 06-19-2021 Hepatitis C screen Hepatitis C screen [place] Comment on above: Postponed from 1962 (Patient Refus ed) Start: 06-19-2021 Hepatitis C screening Hepatitis C screen [place] Comment on above: Postponed from 1962 (Patient Refus ed) Start: 06-19-2021 HIV screen HIV screen [place] Comment on above: Postponed from 1977 (Patient Refus ed) Start: 06-19-2021 HIV screening HIV screen [place] Comment on above: Postponed from 1977 (Patient Refus ed) Start: 03-02-2021 COVID-19 Vaccine (3 - Booster for Pfizer series) COVID-19 Vaccine (3 - Booster for Pfizer series) [facility] Start: 02-15-2020 Influenza vaccination Flu vaccine (Season Ended) [place] Start: 02-14-2019 Influenza vaccination Flu vaccine (#1) [place] Start: 08-22-2017 Pneumococcal 0-64 years Vaccine (2 - PPSV23 or PCV20) Pneumococcal 0-64 years Vaccine (2 - PPSV23 or PCV20) [facility] Start: 10-17-2016 Pneumococcal 0-64 years Vaccine (1 of 1 - PPSV23) Pneumococcal 0-64 years Vaccine (1 of 1 - PPSV23) [place] Start: 2012 Administration of varicella zoster vaccine Zoster (Shingles) Vaccine (1 of 2) [facility] Start: 2012 Shingles Vaccine (1 of 2) Shingles Vaccine (1 of 2) [facility] Start: 2007 Screening for malignant neoplasm of colon [facility] Start: 1981 DTaP,Tdap and Td Vaccines (1 - Tdap) DTaP,Tdap and Td Vaccines (1 - Tdap) [facility] Start: 1981 DTaP/Tdap/Td vaccine (1 - Tdap) DTaP/Tdap/Td vaccine (1 - Tdap) [facility] Start: 1981 Hepatitis B vaccine (1 of 3 - Risk 3-dose series) Hepatitis B vaccine (1 of 3 - Risk 3-dose series) [facility] Start: 1980 Diabetic microalbuminuria test Diabetic microalbuminuria test [place] Start: 1980 Diabetic retinal exam Diabetic retinal exam [facility] Start: 1980 Glaucoma screening Diabetic retinal exam [facility] Start: 1980 Hepatitis C screening Hepatitis C screen [facility] Start: 1980 Urine screening for protein Diabetic microalbuminuria test [facility] Start: 1977 HIV screening HIV screen [facility] Start: 1974 Depression Screen Depression Screen [facility] Start: 1974 Depression Screening Depression Screening [facility] Start: 1972 [object Object] Diabetic foot exam [place] Start: 1972 A1C test (Diabetic or Prediabetic) A1C test (Diabetic or Prediabetic) [place] Start: 1972 Diabetic foot examination Diabetic foot exam [facility] Start: 1972 Diabetic retinal exam Diabetic retinal exam [place], [place] Start: 1972 HbA1c (Bld) [Mass fraction] A1C test (Diabetic or Prediabetic) [place] Start: 1972 Hemoglobin A1c measurement A1C test (Diabetic or Prediabetic) [facility] Start: 1972 Lipid panel Lipid screen [place], [place] Start: 1972 Lipid screen Lipid screen [place] Start: 1967 COVID-19 Vaccine (1) COVID-19 Vaccine (1) [facility] Start: 1962 Glaucoma screening Diabetic Ophthalmology Exam [facility] Start: 1962 Screening for malignant neoplasm of colon [facility] Start: 1962 Statin Use: Diabetic Statin Use: Diabetic [facility] End: 10-15-2019 C. difficile toxin Molecular C. difficile toxin Molecular Microbiology Routine Once for 1 Occurrences starting 10/15/2019 until 10/15/2019 [place] Comment on above: Once for 1 Occurrences starting 10/15/19 until 10/15/2019 C. difficile toxin Molecular C. difficile toxin Molecular Microbiology Routine 10/15/2019 7:30 AM EDT [place] End: 06-06-2024 CBC W Auto Differential panel - Blood CBC auto differential Lab Routine Diabetes mellitus type 1, controlled, insulin dependent ([facility]) 1 Occurrences starting 06/06/2023 until 06/06/2024 [employer] Work Phone: Comment on above: 1 Occurrences starting 06/06/2023 until 06/06/2024 End: 04-23-2025 CBC W Auto Differential panel - Blood CBC auto differential Lab Routine Diabetes mellitus type 1, controlled, insulin dependent ([facility]) Encounter For Annual Wellness Visit 1 Occurrences starting 04/23/2024 until 04/23/2025 [employer] Work Phone: Comment on above: 1 Occurrences starting 04/23/2024 until 04/23/2025 CBC W Auto Different ial panel - Blood CBC auto differential Lab Routine Diabetes mellitus type 1, controlled, insulin dependent ([facility]) 01/27/2025 2:13 PM EDT [employer] Work Phone: End: 06-06-2024 Comprehensive metabolic 2000 panel - Serum or Plasma Comprehensive metabolic panel Lab Routine Diabetes mellitus type 1, controlled, insulin dependent ([facility]) 1 Occurrences starting 06/06/2023 until 06/06/2024 [employer] Comment on above: 1 Occurrences starting 06/06/2023 until 06/06/2024 End: 04-23-2025 Comprehensive metabolic 2000 panel - Serum or Plasma Comprehensive metabolic panel Lab Routine Diabetes mellitus type 1, controlled, insulin dependent ([facility]) Encounter For Annual Wellness Visit 1 Occurrences starting 04/23/2024 until 04/23/2025 [employer] Comment on above: 1 Occurrences starting 04/23/2024 until 04/23/2025 Comprehensive metabo lic 2000 panel - Serum or Plasma Comprehensive metabolic panel Lab Routine Diabetes mellitus type 1, controlled, insulin dependent ([facility]) 01/27/2025 2:13 PM EDT [employer] CT ABDOMEN PELVIS WO CONTRAST Additional Contrast? None CT ABDOMEN PELVIS WO CONTRAST Additional Contrast? None Imaging STAT 09/03/2019 2:52 PM EDT [place] End: 06-06-2024 Ferritin [Mass/volume] in Serum or Plasma Ferritin Lab Routine Diabetes mellitus type 1, controlled, insulin dependent ([facility]) 1 Occurrences starting 06/06/2023 until 06/06/2024 [facility] [facility] Comment on above: 1 Occurrences starting 06/06/2023 until 06/06/2024 Ferritin [Mass/volum e] in Serum or Plasma Ferritin Lab Routine Diabetes mellitus type 1, controlled, insulin dependent ([facility]) 01/27/2025 2:13 PM EDT [facility] End: 10-15-2019 Gastrointestinal Panel, Molecular Gastrointestinal Panel, Molecular Microbiology Routine Once for 1 Occurrences starting 10/15/2019 until 10/15/2019 [place] Comment on above: Once for 1 Occurrences starting 10/15/19 until 10/15/2019 Gastrointestinal [place], Molecular Gastrointestinal Panel, Molecular Microbiology Routine 10/15/2019 7:30 AM EDT [place] End: 10-15-2019 Giardia / Cryptosporidum antigens Giardia / Cryptosporidum antigens Lab Routine Once for 1 Occurrences starting 10/15/2019 until 10/15/2019 [place] Comment on above: Once for 1 Occurrences starting 10/15/19 until 10/15/2019 Giardia / Cryptospor idum antigens Giardia / Cryptosporidum antigens Lab Routine 10/15/2019 7:30 AM EDT [place] End: 04-23-2025 Hemoglobin A1c/Hemoglobin.total in Blood Hemoglobin A1c Lab Routine Diabetes mellitus type 1, controlled, insulin dependent ([facility]) Encounter For Annual Wellness Visit 1 Occurrences starting 04/23/2024 until 04/23/2025 [facility] Comment on above: 1 Occurrences starting 04/23/2024 until 04/23/2025 Hemoglobin A1c/Hemoglobin.total in Blood Hemoglobin A1c Lab Routine Diabetes mellitus type 1, controlled, insulin dependent ([facility]) 01/27/2025 2:13 PM EDT [employer] [facility] End: 06-06-2024 Lipid 1996 panel - Serum or Plasma Lipid profile Lab Routine Diabetes mellitus type 1, controlled, insulin dependent ([facility]) 1 Occurrences starting 06/06/2023 until 06/06/2024 [employer] Comment on above: 1 Occurrences starting 06/06/2023 until 06/06/2024 End: 04-23-2025 Lipid 1996 panel - Serum or Plasma Lipid profile Lab Routine Diabetes mellitus type 1, controlled, insulin dependent ([facility]) Encounter For Annual Wellness Visit 1 Occurrences starting 04/23/2024 until 04/23/2025 [employer] Comment on above: 1 Occurrences starting 04/23/2024 until 04/23/2025 Lipid 1996 panel - S mihai or Plasma Lipid profile Lab Routine Diabetes mellitus type 1, controlled, insulin dependent ([facility]) Mixed hyperlipidemia 01/27/2025 2:13 PM EDT [employer] End: 04-23-2025 Lipoprotein a [Mass/volume] in Serum or Plasma Lipoprotein(a), S Lab Routine Diabetes mellitus type 1, controlled, insulin dependent ([facility]) Encounter For Annual Wellness Visit 1 Occurrences starting 04/23/2024 until 04/23/2025 [employer] Comment on above: 1 Occurrences starting 04/23/2024 until 04/23/2025 End: 06-06-2024 Magnesium [Mass/volume] in Serum or Plasma Magnesium Lab Routine Diabetes mellitus type 1, controlled, insulin dependent ([facility]) 1 Occurrences starting 06/06/2023 until 06/06/2024 [employer] Comment on above: 1 Occurrences starting 06/06/2023 until 06/06/2024 Magnesium [Mass/volu me] in Serum or Plasma Magnesium Lab Routine Diabetes mellitus type 1, controlled, insulin dependent ([facility]) 01/27/2025 2:13 PM EDT [employer] End: 06-06-2024 Microalbumin - Albumin: Creatinine Urine Ratio Microalbumin - Albumin: Creatinine Urine Ratio Lab Routine Diabetes mellitus type 1, controlled, insulin dependent ([facility]) 1 Occurrences starting 06/06/2023 until 06/06/2024 [employer] Comment on above: 1 Occurrences starting 06/06/2023 until 06/06/2024 End: 04-23-2025 Microalbumin - Albumin: Creatinine Urine Ratio Microalbumin - Albumin: Creatinine Urine Ratio Lab Routine Diabetes mellitus type 1, controlled, insulin dependent ([facility]) Encounter For Annual Wellness Visit 1 Occurrences starting 04/23/2024 until 04/23/2025 [employer] Comment on above: 1 Occurrences starting 04/23/2024 until 04/23/2025 Prostatic specific antigen screen Prostatic specific antigen screen Lab Routine Encounter for screening for malignant neoplasm of prostate 01/27/2025 2:13 PM [facility]T [facility] End: 04-24-2025 Prostatic specific antigen, diagnostic Prostatic specific antigen, diagnostic Lab Routine Prostate cancer screening Encounter For Annual Wellness Visit 1 Occurrences starting 04/23/2024 until 04/24/2025 [facility] Comment on above: 1 Occurrences starting 04/23/2024 until 04/24/2025 End: 06-06-2024 TSH with Reflex TSH with Reflex Lab Routine Diabetes mellitus type 1, controlled, insulin dependent ([facility]) 1 Occurrences starting 06/06/2023 until 06/06/2024 [facility] Comment on above: 1 Occurrences starting 06/06/2023 until 06/06/2024 End: 04-23-2025 TSH with Reflex TSH with Reflex Lab Routine Diabetes mellitus type 1, controlled, insulin dependent ([facility]) Encounter For Annual Wellness Visit 1 Occurrences starting 04/23/2024 until 04/23/2025 [facility] Comment on above: 1 Occurrences starting 04/23/2024 until 04/23/2025 End: 06-06-2024 Vitamin D 25 hydroxy Vitamin D 25 hydroxy Lab Routine Diabetes mellitus type 1, controlled, insulin dependent ([facility]) 1 Occurrences starting 06/06/2023 until 06/06/2024 [facility] Comment on above: 1 Occurrences starting 06/06/2023 until 06/06/2024 Immunizations Immunization Date Immunization Notes Care Provider Fa cili 07-27-2024 Pneumococcal Conjuga te 20-valent Chani Louiemikel NUCLEAR FUEL 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 Work Phone: [facility] 07-27-2024 Immunization, In Clinic,; Translations: [Drug or medicament (substance)] Chani Weinberg NUCLEAR FUEL 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 Work Phone: [facility] 03-19-2024 influenza, seasonal, injectable, preservative free Chani Kierra NUCLEAR FUEL 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 Work Phone: [facility] 03-19-2024 zoster vaccine recombinant Chani Weinberg APRN-DIRECTOR RECREATION Work Phone: [facility] 03-19-2024 Immunization, In Clinic,; Translations: [Drug or medicament (substance)] Chani Weinberg APRN-DIRECTOR RECREATION Work Phone: [facility] 03-19-2024 influenza virus vaccine, unspecified formulation Chani Weinberg APRN-DIRECTOR RECREATION Work Phone: [facility] 01-30-2024 zoster vaccine recombinant Chani Weinberg NUCLEAR FUEL 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 Work Phone: [facility] 01-30-2024 Immunization, In Clinic,; Translations: [Drug or medicament (substance)] Chani Weinberg APRN-DIRECTOR RECREATION Work Phone: [facility] 01-30-2024 zoster vaccine, unspecified formulation Chani Weinberg NUCLEAR FUEL 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 Work Phone: [facility] 04-16-2023 influenza virus vaccine, unspecified formulation Kim ORTIZ [facility] 03-16-2021 SARS-CoV-2 (COVID-19 ) Ad26 vaccine, recombinant Kim ORTIZ [facility] 08-14-2020 SARS-CoV-2 (COVID-19 ) Ad26 vaccine, recombinant Kim ORTIZ [facility] 02-28-2020 influenza, injectabl e, quadrivalent, preservative free Chani Weinberg APRN-DIRECTOR RECREATION Work Phone: [facility] 02-28-2020 influenza virus vaccine, unspecified formulation Chani Weinberg APRN-DIRECTOR RECREATION Work Phone: [facility] 08-22-2016 pneumococcal conjuga te vaccine, 13 valent [facility] 03-05-2011 pneumococcal polysaccharide vaccine, 23 valent Chani Weinberg NUCLEAR FUEL ENRICHMENT TECHNICIAN-[facility] Work Phone: [facility] Payers Date Payer Category Payer Self-pay 2023 Unknown [id number] 2020 Unknown GENERIC MCO GENE AMARA MCO [id number] 2020-Present [id number] 2019 Private Health Insurance [id number] 2017 Commercial Managed C are - [employer] [id number] 2017 Unknown [employer] M MO SUPERMED [id number] 2017-Present [phone] [address] [place] [address] [id number] 2015 Unknown [employer] M [employer] [address] xxxxxxxxxxxx 2015-Present [phone] [address] [place] [address] [id number] .7.3.121585.315 1960 Unknown [id number] 2.16.840.1.097106.3.579.2 .175 1960 Unknown [id number] 2.16.840.1.691776.3.579.2 .593 1960 Unknown [id number] 2.16.840.1.728785.3.579.2 .176 1960 Unknown [id number] 2.16.840.1.795700.3.579.2 .176 1960 Unknown [id number] 2.16.840.1.878616.3.579.2 .176 1960 Unknown [id number] 2.16.840.1.675151.3.579.2 .1286 1960 Unknown [id number] 2.16.840.1.886387.3.579.2 .1286 1960 Unknown [id number] 2.16.840.1.120053.3.579.2 .1259 1960 Unknown [id number] 2.16.840.1.815076.3.579.2 .1259 1960 Unknown [id number] 2.16.840.1.742802.3.579.2 .727 1960 Unknown [id number] 2.16.840.1.575180.3.579.2 .727 1960 Unknown [id number] 2.16.840.1.894680.3.579.2 .1286 1960 Unknown [id number] 2.16.840.1.583053.3.579.2 .1286 1960 Unknown [id number] 2.16.840.1.250841.3.579.2 .1286 1960 Unknown [id number] 2.16.840.1.517895.3.579.2 .1286 1960 Unknown [id number] 2.16.840.1.859595.3.579.2 .1286 1960 Unknown [id number] 2.16.840.1.667587.3.579.2 .1286 1960 Unknown [id number] 2.16.840.1.691773.3.579.2 .1286 1960 Unknown [id number] 2.16.840.1.433081.3.579.2 .1286 1959 Unknown [id number] 1.2.840.188329.1.13.239.2 .7.3.175786.315 Unknown [id number] 2.16.840.1.253346.3.579.2 .531 Social History Date Type Detail Facility Start: 09-11-2019 End: 12-25-2022 Tobacco smoking status NHIS Never smoker [facility] Start: 09-11-2019 End: 12-16-2023 Alcohol intake Current drinker of alcohol (finding) [place], [place] Start: 09-28-2013 Alcohol Comment occassional [place], [place] Start: 1960 Sex Assigned At Not on file M [place], [place] Start: 07-31-2020 End: 12-25-2022 Tobacco use and exposure [facility]: Start: 10-08-2021 End: 10-30-2021 Exposure to SARS-CoV-2 (event) Not sure Patient Feed Phone: Start: 1960 Sex Assigned At Male F [facility] Start: 11-25-2022 End: 12-16-2023 History of Social function [facility] Start: 11-25-2022 End: 12-16-2023 Alcohol Use Disorder Identification Test - Consumption [AUDIT-C] [facility]ivar How often to you hav e a drink containing alcohol? Monthly or less [facility] How many standard dr inks containing alcohol do you have on a typical day? 1 or 2 [facility] How often do you hav e 6 or more drinks on 1 occasion? Less than monthly [facility] Start: 08-28-2022 Read-Only, Retired: Physical Abuse Denies [facility] Start: 09-04-2019 Gender identity Identifies as male gender (finding) [facility] Start: 09-04-2019 Sexual orientation Bisexual (finding ) [facility] Start: 12-25-2022 Alcohol Comment 6+ less than monthly [facility] Start: 07-26-2022 Alcohol Comment Occ. 1-2 on e weekends [facility] Start: 01-17-2015 Sex Male (finding) [facility] Sexual Orientation [facility] NEGATED: Highlighted rowStart: NINF History of tobacco use Passive smoker [facility] Functional Status Date Assessment Result Facility 12-22-2023 Functional Status N/A [facility] Clinical Notes 10-18-2021 to 01-27-2025 DURAN Jin - 01/27/2025 2:00 PM EDTPatient InstructionsDURAN Jin - 12/09/2024 11:30 AM EDTPatient InstructionsChani Weinberg APRNSARAH - 10/26/2024 2:00 PM EDT Note Date & Type Note Facility 01-27-2025 History of Present illness Narrative Images from the original note were not included. [facility] [address] [place] [address] OFFICE: FAX: [phone] Patient: Sd Cardozo Date of : 1960 Encounter Date: 01/27/2025 Subjective Chief Complaint Chief Complaint Patient presents with Follow-up History of Present Illness Sd Cardozo is a 64 y.o. male who has a past medical history of Hyperlipidemia, Neuromuscular disorder ([facility]), and Type 1 diabetes ([facility]). Sd is an established patient last [...] night. Sd recently saw his urologist, at [facility] for a prostate check-up. His PSA level [...] Medical History: Diagnosis Date Hyperlipidemia Neuromuscular disorder ([facility]) Type 1 diabetes ([facility]) Past Surgical History: Procedure Laterality Date KIDNEY [...] Interpersonal Safety: Unknown (08/07/2023) Received from [facility] [place] Safety & Environment Fear of Current [...] 120 g 11 blood-glucose meter,continuous (DEXCOM G6 DECISION UNIT RN) misc 1 Device by miscellaneous route continuously. 1 each 0 blood-glucose meter,continuous (DEXCOM G7 DECISION UNIT RN) misc Inject 1 each under the skin [...] and atraumatic. Nose: Nose normal. Mouth/Throat: Lips: [place]. Mouth: Mucous membranes are moist. Eyes: General: [...] Diabetes mellitus type 1, controlled, insulin dependent ([facility]) - CBC auto differential - Comprehensive [...] Jin 01/27/25 1455 documented in this encounter [facility] 01-27-2025 Instructions DURAN Jin - 01/27/2025 [...] good breath technique as instructed - Consider iqdo-bct-xsuaaak Mucinex to help thin secretions and make coughing easier Tests and Imaging: - Get a chest X-ray at [facility] urgent care across the street on [facility] - Complete blood work, including: - Cholesterol panel - A1c - Urine microalbumin Follow-up: - Return for a follow-up appointment in 3 months - Continue follow-up with your urologist as recommended Please don't hesitate to reach out if you have any questions or if your symptoms worsen. Wishing you a guallpa recovery. Best Regards, DURAN [facility] documented in this encounter [facility] 01-24-2025 Hospital Discharge instructions Patient Education 01/24/2025 [...] treatment? Where to find more information [employer] [place]: www.cancer.org [employer]: www.auanet.org Contact a health care [...] provider. Document Revised: 11/26/2021 Document Reviewed: 11/26/2021 TalkTo Patient Education 2023 [employer]. Follow Up Care 12/22/2023 15:30:50 With:ANGELIQUE LUNDBERG, Kim Mcgowan, URL Address: [address] [place] [id number] When: Unknown Comments:6 mos w/ PSA [facility] 01-24-2025 Note Patient Education Oncology [...] Where to find more information ??? [employer] [place] [employer]: www.cancer.org ??? [place]: www.auanet.org Contact a health care [...] The prostate gland (more content not included)... [facility] 12-09-2024 History of Present illness Narrative Images from the original note were not included. [facility] [place] [address] OFFICE: FAX: [phone] Patient: Sd Cardozo Date of : 1960 Encounter Date: 12/09/2024 Subjective Chief Complaint Chief Complaint Patient presents with Earache Rt ear x 2days stabbing pain History of Present Illness Sd Cardozo, 64 y.o. years old, presents to [facility] for an acute/urgent visit with [...] 120 g 11 blood-glucose meter,continuous (DEXCOM G6 DECISION UNIT RN) misc 1 Device by miscellaneous route continuously. 1 each 0 blood-glucose meter,continuous (DEXCOM G7 DECISION UNIT RN) misc Inject 1 each under the skin [...] or erythematous. Nose: Nose normal. Mouth/Throat: Lips: [place]. Mouth: Mucous membranes are moist. Pulmonary: Effort: [...] 04/23/2024 MICROALBUR <0.7 04/23/2024 Assessment and Plan: dS Cardozo is a 64 y.o. male who has a past medical history of Hyperlipidemia, Neuromuscular disorder ([facility]), and Type 1 diabetes ([facility]). here with 1. Non-recurrent acute suppurative [...] Jin 12/09/24 1215 documented in this encounter [employer] 12-09-2024 Instructions DURAN Jin - 12/09/2024 11:30 [...] Claritin (antihistamine) daily Home Care: - Use klzt-ten-syzwhlk decongestants like Claritin-D or Mucinex if needed Follow-up: - Contact the office if ear pain gets worse or lasts more than 3-4 days Please reach out if you have any questions or concerns. Best Regards, DURAN [facility] documented in this encounter [employer] 10-26-2024 History of Present illness Narrative Images from the original note were not included. [facility] [address] [place] [address] OFFICE: FAX: [phone] Patient: Sd Cardozo Date of : 1960 Encounter Date: 10/26/2024 Subjective Chief Complaint Chief Complaint Patient presents with Diabetes History of Present Illness Sd Cardozo is a 64 y.o. male who has a past medical history of Hyperlipidemia, Neuromuscular disorder ([facility]), and Type 1 diabetes ([facility]). Sd is an established patient last seen [...] Medical History: Diagnosis Date Hyperlipidemia Neuromuscular disorder ([facility]) Type 1 diabetes ([facility]) Past Surgical History: Procedure Laterality Date KIDNEY [...] Interpersonal Safety: Unknown (08/07/2023) Received from [facility] Safety & Environment Fear of Current or [...] 120 g 11 blood-glucose meter,continuous (DEXCOM G6 DECISION UNIT RN) misc 1 Device by miscellaneous route continuously. 1 each 0 blood-glucose meter,continuous (DEXCOM G7 DECISION UNIT RN) misc Inject 1 each under the skin [...] and atraumatic. Nose: Nose normal. Mouth/Throat: Lips: [place]. Mouth: Mucous membranes are moist. Eyes: General: [...] Diabetes mellitus type 1, controlled, insulin dependent ([facility]) - POCT Hemoglobin A1c 2. Mixed hyperlipidemia Orders Placed This Encounter Procedures POCT Hemoglobin A1c No orders of the defined types were placed in this encounter. There are no discontinued medications. DISCUSSION/FOLLOW UP: Diabetes Mellitus Type 1 Assessment: Sd Cardozo's diabetes management has been challenging with recent [...] Plan: - Patient to follow up with quality control industrial engineer for further evaluation - Monitor symptoms and [...] daily of an unspecified medication, likely an jwlz-hsu-mhbntem supplement. Plan: - Continue current blood pressure [...] the electronic or other health record DURAN iJn This note was created with the assistance of a speech-recognition program. Although the intention is to generate a document that actually reflects the content of the visit, no guarantees can be provided that every mistake has been identified and corrected by editing. DURAN Jin 10/26/24 1511 documented in this encounter [employer] 10-26-2024 Instructions DURAN Jin - 10/26/2024 2:00 [...] carb intake. - Follow-up: - See your quality control industrial engineer as scheduled. - Eye Care: - Get a release of records from [facility] for your recent eye exam. - Lifestyle: - Continue staying active and exercising. - Monitoring: - Keep track of any unusual symptoms, especially abdominal pain on the right side. - Monitor for any vision changes or new floaters. Please reach out if you have any questions or concerns. Best Regards, DURAN [facility] documented in this encounter [employer] 07-27-2024 History of Present illness Narrative Images from the original note were not included. [facility] [place] [address] OFFICE: FAX: [phone] Patient: Sd Cardozo Date of : 1960 Encounter Date: 07/27/2024 Subjective Chief Complaint Chief Complaint Patient presents with Follow-up History of Present Illness Sd Cardozo is a 64 y.o. male who has a past medical history of Hyperlipidemia, Neuromuscular disorder ([facility]), and Type 1 diabetes ([facility]). Sd presents today as an established patient [...] Medical History: Diagnosis Date Hyperlipidemia Neuromuscular disorder ([facility]) Type 1 diabetes ([facility]) Past Surgical History: Procedure Laterality Date KIDNEY [...] Interpersonal Safety: Unknown (08/07/2023) Received from [facility] [place] Safety & Environment Fear of Current or [...] 120 g 11 blood-glucose meter,continuous (DEXCOM G6 DECISION UNIT RN) misc 1 Device by miscellaneous route continuously. 1 each 0 blood-glucose meter,continuous (DEXCOM G7 DECISION UNIT RN) misc Inject 1 each under the skin [...] Head: Normocephalic. Nose: Nose normal. Mouth/Throat: Lips: [place]. Mouth: Mucous membranes are moist. Cardiovascular: Pulses: [...] Diabetes mellitus type 1, controlled, insulin dependent ([facility]) - DIABETES FOOT EXAM - POCT [...] Procedures Pneumococcal Conjugate 20-Valent POCT Hemoglobin A1c HM DIABETES FOOT EXAM No orders of the [...] the electronic or other health record Chani Weinberg, RENETTA-DIRECTOR RECREATION This note was created with the assistance of a speech-recognition program. Although the intention is to generate a document that actually reflects the content of the visit, no guarantees can be provided that every mistake has been identified and corrected by editing. DURAN Jin 07/27/24 1615 documented in this encounter [facility] 07-27-2024 Instructions DURAN Jin - 07/27/2024 2:00 [...] [facility] documented in this encounter [facility] 05-31-2024 History of Present illness Narrative [...] days (around 06/04/2024). documented in this encounter [facility] 04-23-2024 History of Present illness Narrative Images from the original note were not included. [facility] [address] [place] [address] OFFICE: FAX: [phone] Patient: Sd Cardozo Date of : 1960 Encounter Date: 04/23/2024 Subjective Chief Complaint Chief Complaint Patient presents with Annual Exam History of Present Illness Sd Cardozo is a 63 y.o. male who has a past medical history of Hyperlipidemia, Neuromuscular disorder ([facility]), and Type 1 diabetes ([facility]). Health Maintenance: DEXA scan: Not applicable CV [...] Medical History: Diagnosis Date Hyperlipidemia Neuromuscular disorder ([facility]) Type 1 diabetes ([facility]) Past Surgical History: Procedure Laterality Date KIDNEY [...] Interpersonal Safety: Unknown (08/07/2023) Received from [facility] [place] & Environment Fear of Current or [...] 120 g 11 blood-glucose meter,continuous (DEXCOM G6 DECISION UNIT RN) misc 1 Device by miscellaneous route continuously. 1 each 0 blood-glucose meter,continuous (DEXCOM G7 DECISION UNIT RN) misc Inject 1 each under the skin [...] Diabetes mellitus type 1, controlled, insulin dependent ([facility]) - CBC auto differential; Future - [...] Jin 04/23/24 1504 documented in this encounter [facility] 04-23-2024 Instructions DURAN Jin - 04/23/2024 2:00 PM [...] can view your upcoming lab results on [employer]. Best regards, DURAN [facility] History of Present illness Narrative Images from the original note were not included. [facility] [address] [place] [address] OFFICE: FAX: [phone] Patient: Sd Cardozo Date of : 1960 Encounter Date: 03/19/2024 Subjective Chief Complaint Chief Complaint Patient presents with Follow-up History of Present Illness Sd Cardozo is a 63 y.o. male who has a past medical history of Hyperlipidemia, Neuromuscular disorder ([facility]), and Type 1 diabetes ([facility]). Sd is an established patient last seen [...] Medical History: Diagnosis Date Hyperlipidemia Neuromuscular disorder ([facility]) Type 1 diabetes ([facility]) Past Surgical History: Procedure Laterality Date [...] Interpersonal Safety: Unknown (08/07/2023) Received from [facility] [place] [place] Safety & Environment Fear of Current or Ex-Partner: Not on file Emotionally Abused: Not on file Physically Abused: Not on file Sexually Abused: Not on file Physically or Sexually Abused: Not on file Housing Instability: Not on file Allergies and Current Medications Allergies Allergen Reactions House Dust Current Outpatient Medications Medication Sig Dispense Refill blood-glucose meter,continuous (DEXCOM G6 DECISION UNIT RN) misc 1 Device by miscellaneous route continuously. 1 each 0 blood-glucose meter,continuous (DEXCOM G7 DECISION UNIT RN) misc Inject 1 each under the skin [...] Head: Normocephalic. Nose: Nose normal. Mouth/Throat: Lips: [place]. Mouth: Mucous membranes are moist. Cardiovascular: Pulses: [...] Diabetes mellitus type 1, controlled, insulin dependent ([facility]) - DIABETES FOOT EXAM 2. Bilateral foot [...] pain). Dispense: 120 g Refill: 11 Formula: [employer] #8E Compounding Instructions: Apply QID as need [...] Prescribe a compounded cream [facility] for potential nerve inflammation and neuropathic pain. Instruct Sd to apply the cream up to four times a day, focusing on nighttime application. Reassess the effectiveness of the cream during the next visit. Toe Discomfort and Bunion Assessment: Sd reports a history of toe fracture and occasional pain in the affected toe. Plan: Recommend dlck-bbo-apecjid non-steroidal anti-inflammatory creams such as Gluconect or [...] Jin 03/19/24 1516 documented in this encounter [employer] 03-19-2024 Instructions DURAN Jin - 03/19/2024 2:00 PM EDT Thank you for visiting us today. We appreciate your commitment to maintaining and improving your health. Here are the bedoya instructions and recommendations from today's consultation: - Medications for Foot Discomfort: - Consider using Voltaren cream for arthritic pain. - [facility] will contact you regarding a compounded [...] supporting your health. documented in this encounter [employer] 02-17-2024 History of Present illness Narrative Images from the original note were not included. [facility] [place] [address] OFFICE: FAX: [phone] Patient: Sd Cardozo Date of : 1960 Encounter Date: 02/17/2024 Subjective Chief Complaint Chief Complaint Patient presents with Hand Pain Tingling x3 days in right hand going up to elbow. Taking Asprin and mucus le relaxer History of Present Illness Sd Cardozo, 63 y.o. years old, presents to [facility] for an acute/urgent visit with chief complaint [...] the issue, only muscle relaxers and aspirin. 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 1 each 0 blood-glucose meter,continuous (DEXCOM G7 DECISION UNIT RN) misc Inject 1 each under the skin [...] well-groomed and normal weight. HENT: Mouth/Throat: Lips: [place]. Mouth: Mucous membranes are moist. Musculoskeletal: Right [...] past medical history of Hyperlipidemia, Neuromuscular disorder ([facility]), and Type 1 diabetes ([facility]). here with 1. Diabetes mellitus type 1, controlled, insulin dependent ([facility]) 2. Numbness and tingling of right arm and leg Discussion: Right Wrist Tingling and Numbness Assessment: The patient presents with tingling and numbness in the right wrist, likely due to overuse and inflammation of the ligaments and tendons. Plan: The patient is advised to rest the affected wrist and use ypwh-srj-rfrpjoi non-steroidal anti-inflammatory medications (e.g., ibuprofen) for inflammation. [...] Jin 02/17/24 1400 documented in this encounter [facility] 02-17-2024 Instructions DURAN Jin - 02/17/2024 11:30 [...] to reach out. documented in this encounter [employer] 01-30-2024 History of Present illness Narrative Images from the original note were not included. [facility] [address] [place] [address] OFFICE: FAX: [phone] Patient: Sd Cardozo Date of : 1960 Encounter Date: 01/30/2024 Subjective Chief Complaint Chief Complaint Patient presents with Follow-up Diabetes Diabetes History of Present Illness Sd Cardozo is a 63 y.o. male who has a past medical history of Hyperlipidemia, Neuromuscular disorder ([facility]), and Type 1 diabetes ([facility]). Sd is an established patient last seen [...] He also mentions that the lesion was cam maker in color yesterday, but it has become darker today. Past Medical, Family, Surgery and Social History Past Medical History: Diagnosis Date Hyperlipidemia Neuromuscular disorder ([facility]) Type 1 diabetes ([facility]) Past Surgical History: Procedure Laterality Date KIDNEY [...] Interpersonal Safety: Unknown (08/07/2023) Received from [facility] [place] [place] Safety & Environment Fear of Current or Ex-Partner: Not on file Emotionally Abused: Not on file Physically Abused: Not on file Sexually Abused: Not on file Physically or Sexually Abused: Not on file Housing Instability: Not on file Allergies and Current Medications Allergies Allergen Reactions House Dust Current Outpatient Medications Medication Sig Dispense Refill blood-glucose meter,continuous (DEXCOM G6 DECISION UNIT RN) misc 1 Device by miscellaneous route continuously. 1 each 0 blood-glucose meter,continuous (DEXCOM G7 DECISION UNIT RN) misc Inject 1 each under the skin [...] and atraumatic. Nose: Nose normal. Mouth/Throat: Lips: [place]. Mouth: Mucous membranes are moist. Eyes: General: [...] circumference with outer edge darker discoloration and cam maker red in center. Nontender to tough. Neurological: [...] Diabetes mellitus type 1, controlled, insulin dependent ([facility]) - POCT Hemoglobin A1c 2. Mixed hyperlipidemia [...] will be made to obtain records from [facility]. Preventive Care Assessment: The patient has undergone [...] DURAN Jin 01/30/241911 documented in this encounter [facility] 01-30-2024 Instructions DURAN Jin - 01/30/2024 4:00 [...] questions or concerns. documented in this encounter [employer] 12-22-2023 Hospital Discharge instructions Patient Education 12/22/2023 [...] treatment? Where to find more information [employer]: www.cancer.org [employer]: www.auanet.org Contact a health care [...] provider. Document Revised: 11/26/2021 Document Reviewed: 11/26/2021 TalkTo Patient Education 2022 [employer]. Follow Up Care 10/09/2023 16:07:18 With:ANGELIQUE LUNDBERG, Kim Mcgowan, URL Address: [facility] [address], [place] [phone] When: Unknown Comments:1 yr w/ PSA [facility]ar 12-09-2023 History of Present illness Narrative Images from the original note were not included. [facility] By [employer] [place] [address] OFFICE: FAX: [phone] Patient: Sd Cardozo Date of : 1960 Encounter Date: 12/09/2023 Subjective Chief Complaint Chief Complaint Patient presents with Follow-up History of Present Illness Sd Cardozo is a 63 y.o. male who has a past medical history of Hyperlipidemia, Neuromuscular disorder ([facility]), and Type 1 diabetes ([facility]). Sd is an established patient last seen [...] Medical History: Diagnosis Date Hyperlipidemia Neuromuscular disorder ([facility]) Type 1 diabetes ([facility]) Past Surgical History: Procedure Laterality Date [...] Interpersonal Safety: Unknown (08/07/2023) Re[facility] from [facility] [place] [place] Safety & Environment Fear of Current or Ex-Partner: Not on file Emotionally Abused: Not on file Physically Abused: Not on file Sexually Abused: Not on file Physically or Sexually Abused: Not on file Housing Instability: Not on file Allergies and Current Medications Allergies Allergen Reactions House Dust Current Outpatient Medications Medication Sig Dispense Refill blood-glucose meter,continuous (DEXCOM G6 DECISION UNIT RN) misc 1 Device by miscellaneous route continuously. [...] 30 mL 1 blood-glucose meter,continuous (DEXCOM G7 DECISION UNIT RN) misc Inject 1 each under the skin [...] Head: Normocephalic. Nose: Nose normal. Mouth/Throat: Lips: [place]. Mouth: Mucous membranes are moist. Cardiovascular: Rate [...] Diabetes mellitus type 1, controlled, insulin dependent ([facility]) - POCT Hemoglobin A1c Orders Placed [...] and corrected by editing. DURAN Jin 12/09/23 190 documented in this encounter [facility] 12-09-2023 Instructions DURAN Jin - 12/09/2023 2:00 [...] with our clinic by connecting through the [employer] Clarity - Follow-Up and Monitoring: - Observe [...] in the meantime. documented in this encounter [employer] 10-16-2023 History of Present illness Narrative Images from the original note were not included. [facility] By [employer] [address] [place] [address] OFFICE: FAX: [phone] Patient: Sd Cardozo Date of : 1960 Encounter Date: 10/16/2023 Subjective Chief Complaint Chief Complaint Patient presents with Follow-up History of Present Illness Sd Cardozo is a 63 y.o. male who has a past medical history of Hyperlipidemia, Neuromuscular disorder ([facility]), and Type 1 diabetes ([facility]). Sd is an established patient last seen [...] Medical History: Diagnosis Date Hyperlipidemia Neuromuscular disorder ([facility]) Type 1 diabetes ([facility]) Past Surgical History: Procedure Laterality Date KIDNEY [...] Interpersonal Safety: Unknown (08/07/2023) Received from [facility] Safety & Environment Fear of Current or [...] in the morning. blood-glucose meter,continuous (DEXCOM G6 DECISION UNIT RN) misc 1 Device by miscellaneous route continuously. [...] and atraumatic. Nose: Nose normal. Mouth/Throat: Lips: [place]. Mouth: Mucous membranes are moist. Eyes: General: [...] Diabetes mellitus type 1, controlled, insulin dependent ([facility]) - insulin degludec (TRESIBA U-100 INSULIN) [...] Jin 10/16/23 1719 documented in this encounter [facility] 10-16-2023 Instructions DURAN Jin - 10/16/2023 3:00 [...] up with your urologist, Dr. Ortiz from [place], regarding your PSA levels and the scheduled re-testing in three months. Continue taking Super Beta Prostate as you find it helpful. - Ensure your next PSA test does not follow recent intercourse or masturbation for accuracy. - Can obtain Dexacon 7 in December. - Schedule a follow-up [...] contact our office. documented in this encounter [employer] 10-06-2023 History of Present illness Narrative Images from the original note were not included. [facility] [address] [facility] [id number] Subjective Sd Cardozo is a 63 y.o. [...] Diagnosis Type 1 diabetes mellitus with hyperglycemia ([facility]) Mixed hyperlipidemia Diabetes mellitus type 1, controlled, insulin dependent ([facility]) Vertebral artery stenosis, left Allergies: Allergies Allergen [...] 30 mL 4 blood-glucose meter,continuous (DEXCOM G6 DECISION UNIT RN) misc 1 Device by miscellaneous route continuously. [...] created with the assistance of a voice catering cook program. While intending to generate a timely document that accurately reflects the content of the visit, no guarantee can be provided that every grammatical or spelling mistake has been or will be identified or corrected, and inadvertent computerized catering cook errors may be present. Please contact author for any clarification. Thank you for your understanding. CHAS ROMAN DO [facility] by [employer] [address] [place] [address] Office: [phone] documented in this encounter [employer] 10-06-2023 Instructions Chas Roman DO - 10/06/2023 [...] office for re-evaluation. documented in this encounter [employer] 09-04-2023 History of Present illness Narrative Images from the original note were not included. [facility] [place] [address] OFFICE: FAX: [phone] Patient: Sd Cardozo Date of : 1960 Encounter Date: 09/04/2023 Subjective Chief Complaint Chief Complaint Patient presents with Follow-up History of Present Illness Sd Cardozo is a 63 y.o. male who has a past medical history of Hyperlipidemia, Neuromuscular disorder ([facility]), and Type 1 diabetes ([facility]). Sd was last seen in office 07/10/2023 [...] Medical History: Diagnosis Date Hyperlipidemia Neuromuscular disorder ([facility]) Type 1 diabetes ([facility]) Past Surgical History: Procedure Laterality Date KIDNEY [...] in the morning. blood-glucose meter,continuous (DEXCOM G6 DECISION UNIT RN) misc 1 Device by miscellaneous route continuously. [...] Head: Normocephalic. Nose: Nose normal. Mouth/Throat: Lips: [place]. Mouth: Mucous membranes are moist. Pulmonary: Effort: [...] Diabetes mellitus type 1, controlled, insulin dependent ([facility]) - POCT Hemoglobin A1c - insulin [...] morning. Dispense: 6 mL Refill: 0 LOT: [id number]; EXP: 07/16/2024 Medications Discontinued During This Encounter [...] DURAN Jin 09/04/232006 documented in this encounter [facility] 09-04-2023 Instructions DURAN Jin - 09/04/2023 3:00 PM EDT 16 units of Tresiba documented in this encounter [facility] 08-19-2023 History of Present illness Narrative DWO for CGM signed/dated and faxed to [employer] jose at [phone] Arlen Daugherty RPH 08/19/23 1312 documented in this encounter [facility] 07-10-2023 History of Present illness Narrative Images from the original note were not included. [facility] By [place] [address] OFFICE: FAX: [phone] Patient: Sd Cardozo Date of : 1960 [...] past medical history of Hyperlipidemia, Neuromuscular disorder ([facility]), and Type 1 diabetes ([facility]). Sd presents today with concerns associated [...] Medical History: Diagnosis Date Hyperlipidemia Neuromuscular disorder ([facility]) Type 1 diabetes ([facility]) Past Surgical History: Procedure Laterality Date KIDNEY [...] in the morning. blood-glucose meter,continuous (DEXCOM G6 DECISION UNIT RN) misc 1 Device by miscellaneous route continuously. [...] Head: Normocephalic. Nose: Nose normal. Mouth/Throat: Lips: [place]. Mouth: Mucous membranes are moist. Pulmonary: Effort: [...] Diabetes mellitus type 1, controlled, insulin dependent ([facility]) 2. 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 - [...] DURAN Jin 07/10/232030 documented in this encounter [employer] 06-06-2023 History of Present illness Narrative Images from the original note were not included. [facility] By [email or web address] [address] OFFICE: FAX: [phone] Patient: Sd Cardozo Date of : 1960 Encounter Date: 06/06/2023 Subjective Chief Complaint Chief Complaint Patient presents with Follow-up History of Present Illness Sd Cardozo is a 63 y.o. male who has a past medical history of Hyperlipidemia, Neuromuscular disorder ([facility]), and Type 1 diabetes ([facility]). Sd is an established patient last seem [...] in the morning. blood-glucose meter,continuous (DEXCOM G6 DECISION UNIT RN) misc 1 Device by miscellaneous route continuously. [...] Diabetes mellitus type 1, controlled, insulin dependent ([facility]) - POCT Hemoglobin A1c - CBC [...] Jin 06/06/23 1547 documented in this encounter [facility] 10-30-2021 Hospital Discharge instructions Juju Knapp RN [...] cannot be sent through Care Everywhere.High-Fiber Diet (Danish)documented in this encounter Patient Feed Phone: 10-30-2021 History of Present illness Narrative CECUM REACHED AT 1228 Finger stick blood sugar 145 documented in this encounter Patient Feed Phone: 10-18-2021 History of Present illness Narrative [...] of water: (Sd will consult with his First Officer in regards to 10/29/21 night dose of [...] powder, deodorant, jewelry, piercings, perfume, makeup, nail wolof, hair accessories, or hair spray on the [...] hospital. The Day of Surgery: Arrive at [facility] Surgery Entr[facility] at the time directed by your surgeon and check in at the desk. If you have a living will or healthcare power of commercial real estate attorney, please bring a copy. You will be taken to the pre-op holding area where you will be prepared for surgery. A physical assessment will be performed by a nurse practitioner or rooming house operator. Your IV will be started and you [...] verbalized. 10/30/21 Colonoscopy documented in this encounter [facility] Work Phone: Evaluation + Plan note Future Appointments Appointment Date:12/27/2024 02:45:00 PM Scheduled Provider:Kim ORTIZ MD Location:[facility] Appointment Type:URO Office Visit Diagnostic Tests PendingPSA Total 12/22/23 [facility] Evaluation + Plan note Future Appointments Appointment Date:07/25/2025 01:15:00 PM Scheduled Provider:Kim ORTIZ MD Location:[facility] Appointment Type:URO Office Visit Diagnostic Tests PendingPSA Free & Total 01/24/25 [facility] Evaluation note No assessment inform ation available [facility] Work Phone: Evaluation note Diagnosis Intractable tension-type headache, unspecified chronicity pattern [facility] Diagnosis Impacted cerumen, right ear- Primary Diabetes mellitus type 1, controlled, insulin dependent (CMS/HCC) Acute ear pain, right Chronic sinusitis, unspecified location [facility] Diagnosis Type 1 diabetes mellitus with hyperglycemia (CMS-HCC)- Primary Mixed hyperlipidemia Type 1 diabetes mellitus with hyperglycemia (CMS-HCC) [facility] Diagnosis Diabetes mellitus type 1, controlled, insulin dependent (CMS-HCC)- Primary [facility] Diagnosis Otalgia of right ear- Primary [facility] Diagnosis History of elevated PSA- Primary Diabetes mellitus type 1, controlled, insulin dependent (CMS-HCC) [facility] Diagnosis Type 1 diabetes mellitus with hyperglycemia (CMS-HCC)- Primary Mixed hyperlipidemia Diabetes mellitus type 1, controlled, insulin dependent (CMS-HCC)- Primary Mixed hyperlipidemia Need for pneumococcal 20-valent conjugate vaccination [facility] Diagnosis Diabetes mellitus type 1, controlled, insulin dependent (CMS-HCC)- Primary 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 [facility] Diagnosis Diabetes mellitus type 1, controlled, insulin dependent (CMS-HCC)- Primary [facility]* Diagnosis Diabetes mellitus type 1, controlled, insulin dependent (CMS-HCC)- Primary Mixed hyperlipidemia [facility] Diagnosis Diabetes mellitus type 1, controlled, insulin dependent (CMS-HCC)- Primary Mixed hyperlipidemia Contusion of right upper extremity, initial encounter Need for shingles vaccine Need for prophylactic vaccination and inoculation against varicella [facility] Diagnosis Diabetes mellitus type 1, controlled, insulin dependent (CMS-HCC)- Primary Numbness and tingling of right arm and leg [facility] Diagnosis Diabetes mellitus type 1, controlled, insulin dependent (CMS-HCC)- Primary Bilateral foot pain Need for shingles vaccine Need for prophylactic vaccination and inoculation against varicella Need for immunization against influenza Need for prophylactic vaccination and inoculation against influenza [facility]* Diagnosis Type 1 diabetes mellitus with hyperglycemia (CMS-HCC)- Primary Mixed hyperlipidemia Diabetes mellitus type 1, controlled, insulin dependent (CMS-HCC)- Primary Mixed hyperlipidemia Prostate cancer screening Special screening for malignant neoplasm of prostate Encounter for annual wellness visit documented in this encounter [facility]* Diagnosis Type 1 diabetes mellitus with hyperglycemia (CMS-HCC)- Primary Mixed hyperlipidemia Diabetes mellitus type 1, controlled, insulin dependent (CMS-HCC) [facility] Diagnosis Type 1 diabetes mellitus with hyperglycemia (CMS-HCC)- Primary Mixed hyperlipidemia Diabetes mellitus type 1, controlled, insulin dependent (CMS-HCC)- Primary Mixed hyperlipidemia [facility] Diagnosis Type 1 diabetes mellitus with hyperglycemia (CMS-HCC)- Primary Mixed hyperlipidemia Non-recurrent acute suppurative otitis media of right ear without spontaneous rupture of tympanic membrane- Primary Cerumen debris on tympanic membrane of right ear Otitis interna, right [facility] Diagnosis Type 1 diabetes mellitus with hyperglycemia (CMS-HCC)- Primary Mixed hyperlipidemia Diabetes mellitus type 1, controlled, insulin dependent (CMS-HCC)- Primary Mixed hyperlipidemia Encounter for screening for malignant neoplasm of prostate Recurrent productive cough Cough Encounter for screening for depression Recurrent productive cough Cough [facility] Narrative No data available for this section [facility] InstructionsNot on filedocumented in this encounter [facility] filedocumented in this encounter [facility]ructionsNot on filedocumented in this encounter [facility] System[facility]ructionsNot on filedocumented in this encounter [facility]ructionsNot on filedocumented in this encounter [facility] note No data available for this section [facility] [email or web address] reason for visit Narrative* Auth/Cert Specialty Diagnoses / Procedures Referred By Lesli t Referred To Contact Diagnoses Screen for colon cancer SCREEN FOR COLON CANCER Procedures NH COLONOSCOPY FLX DX W/COLLJ SPEC WHEN PFRMD NH COLONOSCOPY W/BIOPSY SINGLE/MULTIPLE NH COLSC FLX W/RMVL OF TUMOR POLYP LESION SNARE TQ COLORECTAL CANCER SCREENING, NOT HIGH RISK Colton Romero MD [address] [place] [address] [employer] [address] [place] [address] Referral ID Status Reason Start Date Expiration Date Visits Re quested Visits Authorized [id number] 1 1 Patient Feed Phone: Advance Directives Documents on File Type Date Recorded 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 * Urinary Retention (Danish) documented in this encounter* Instructions* Broschak DO Freddie - 09/11/2019 Please take all medications as [...] be sent through Care Everywhere. * Constipation (Danish) documented in this encounter* Attachments The following attachments cannot be sent through Care Everywhere. * Abrasions (Danish) documented in this encounter Assessments Diagnosis Urinary [...] CT HEAD [place]jandro [place]ña [place] [address] [place] [address] Referral ID Status Reason Start Date Expiration Date V isits Requested Visits Authorized [id number] Pending Review 12/16/2023 12/15/2024 1 1 Specialty Diagnoses / Procedures Referred By Contac t Referred To Contact Diagnoses Diabetes mellitus type 1, controlled, insulin dependent ([facility]) Chani Weinberg, NUCLEAR FUEL 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 [address] [place] [address] Referral ID Status Reason Start Date Expiration Date Visits Re quested Visits Authorized [id number] Denied 1 1 Referral ID Status Reason Start Date Expiration Date V isits Requested Visits Authorized [id number] Pending Review 1 1 Additional Source Comments Reason for Visit (unrecogniz ed section and content) Reason Comments Abdominal Pain RLQ Reason Comments Abdominal Pain Reason Comments Leg Injury left Fall Specialty Diagnoses / Procedures Referred By Contac t Referred To Contact Radiology Diagnoses Intractable tension-type headache, unspecified chronicity pattern Procedures CT HEAD [place]ña [place] [address] [place] [address] Referral ID Status Reason Start Date Expiration Date V isits Requested Visits Authorized [id number] Pending Review 12/16/2023 12/15/2024 1 1 Reason Comments Earache One week ear ache ri ght ear, painful to touch and feels like theres fluid behind it Reason Comments Med Refill Reason Comments Follow-up Reason Comments Earache Right ear pain x 1 w saxman denies drainage/ blood, uses q tips rarely [...] DATE CREATED AUTHOR AUTHOR'S ORGANIZ ATION 11/26/2020 [facility] DATE CREATED AUTHOR AUTHOR'S ORGANIZ ATION 10/14/2021 [facility] DATE CREATED AUTHOR AUTHOR'S ORGANIZ ATION 08/10/2022 [facility] DATE CREATED AUTHOR AUTHOR'S ORGANIZ ATION 10/08/2023 [facility] DATE CREATED AUTHOR AUTHOR'S ORGANIZ ATION 12/19/[address] 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 Relationship Specialty Start Date End Date Alejandro Umaña [address] [address] PCP - General Family Medicine 09/03/19 Motor Lodge Clerk Relationship Specialty Start Date End Date Alejandro Umaña [address] [address] PCP - General Family Medicine 09/03/19 Motor Lodge Clerk Relationship Specialty Start Date End Date Alejandro Umaña [address] [address] PCP - General Family Medicine 09/03/19 Team Status: Active Member Role Status Alejandro Umaña MD Primary Care Provider Active Team Status: Inactive Member Role Status Kim Ortiz MD Attending Provider Active St art: October 03, 2023 End: October 03, 2023 Alejandro Umaña MD Primary Care Provider Active Start: October 03, 2023 End: October 03, 2023 Motor Lodge 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 Relationship Specialty Start Date End Date Alejandro Umaña MD PCP - General Family Medicine 09/03/19 Motor Lodge Clerk Relationship Specialty Start Date [place]andro [place] [address] [place] [address] PCP - General Family Medicine 11/27/22 [place]andro [place] [address] [place] [address] PCP - Medical [place] [employer] 06/16/15 06/15/99 Motor Lodge Clerk Relationship Specialty Start Date [place] [address] [place] [address] PCP - General Family Medicine 11/27/22 [place] [address] [place] [address] PCP - Medical [place] [employer] 06/16/15 06/15/99 Motor Lodge Clerk Relationship Specialty Start Date End Date Chani Weinberg APRN-CNP [address] [facility] [address] PCP - General Family Medicine 09/17/22 Motor Lodge Clerk Relationship Specialty Start Date End Date Chani Weinberg APRN-CNP [address] [place] [address] PCP - General Family Medicine 09/17/22 Motor Lodge Clerk Relationship Specialty Start Date End Date Chani Weinberg APRN-CNP [address] [place] [address] PCP - General Family Medicine 09/17/22 Motor Lodge Clerk Relationship Specialty Start Date End Date Chani Weinberg APRN-CNP [address] [facility] [address] PCP - General Family Medicine 09/17/22 Motor Lodge Clerk Relationship Specialty Start Date End Date Chani Weinberg APRN-CNP [address] [place] [address] PCP - General Family Medicine 09/17/22 Motor Lodge Clerk Relationship Specialty Start Date End Date Chani Weinberg APRN-CNP [address] [place] [address] PCP - General Family Medicine 09/17/22 Motor Lodge Clerk Relationship Specialty Start Date End Date [facility] [address] [place] [address] PCP - General Family Medicine 09/17/22 Motor Lodge Clerk Relationship Specialty Start Date End Date [facility] [address] [place] [address] PCP - General Family Medicine 09/17/22 Motor Lodge Clerk Relationship Specialty Start Date End Date [facility] [address] [place] [address] PCP - General Family Medicine 09/17/22 Motor Lodge Clerk Relationship Specialty Start Date End Date [facility] [address] [place] [address] PCP - General Family Medicine 09/17/22 Motor Lodge Clerk Relationship Specialty Start Date End Date [facility] [address] [place] [address] PCP - General Family Medicine 09/17/22 Motor Lodge Clerk Relationship Specialty Start Date End Date [facility] [address] [place] [address] PCP - General Family Medicine 09/17/22 Motor Lodge Clerk Relationship Specialty Start Date End Date Chani Weinberg, NUCLEAR FUEL 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 [address] [place] [address] PCP - General Family Medicine 09/17/22 Motor Lodge Clerk Relationship Specialty Start Date [place] [address] [place] [address] PCP - General Family Medicine 11/27/22 [place] [address] [place] [address] PCP - Medical [facility] 06/16/15 06/15/99 Motor Lodge Clerk Relationship Specialty Start Date End Date Chani Weinberg NUCLEAR FUEL 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 [address] [place] [address] PCP - General Family Medicine 09/17/22 Continuous Active and Recently Administ ered Medications (unrecognized section and content) Medication Order 10/28/2021 10/29/2021 10/30/2021 0.9 % sodium chloride infusion (CANCELED) IntraVENous, at 125 mL/hr, CONTINUOUS, Starting on Fri10/30/21 at 1130, Pre-op (day of surgery) 1139 (New Bag - Prov ider: Mira Varela RN)1203 (Paused - Provider: Jeanne Reyes APRN - OVERLOCKER - Comment: Switch to gravity)1204 (Restarted - Provider: Jeanne Reyes APRN - OVERLOCKER)1247 (Anesthesia Volume Adjustment - Provider: Jeanne Reyes APRN - OVERLOCKER)1352 (Stopped - Provider: Juju Knapp RN) Goals [...] BE BASED ON THE PRIMARY CLINICAL RECORDS. [facility] [employer] [facility]. provides no warranty or guarantee of the accuracy or completeness of information in this document.
--- NOTE | 2025-03-27 21:31 | ECG_ITS ---
[facility] Test Date: 2025-03-27 Pat Name: ARVIND LAYTON Department: Room: - Gender: Male Chief Design Engineer: : [id number] Requested By: [id number] Order Number: [id number] Leopoldo MD: TAMARA MOMIN M.D. Measurements Intervals [place] Rate: 70 P: 78 ME: 146 QRS: 82 QRSD: 90 T: 63 QT: 402 QTc: 423 Interpretive Statements 1100 Sinus rhythm 9110 normal ECG No previous ECG available for comparison Electronically Signed On 03-27-2025 21:43:17 EDT by TAMARA MOMIN M.D.
--- NOTE | 2025-03-27 21:35 | ED.DIZZY1 ---
HPI - Dizziness General Chief Complaint: Dizziness Stated Complaint: DIZZY, LIGHT HEADED AND SHAKING Time Seen by Provider: 03/27/25 21:12 Source: patient Mode of arrival: walk-in History of Present Illness HPI Narrative: This 64-year-old male with a history of kidney stones presents for evaluation of 2 weeks of intermittent right lower quadrant abdominal pain. He was seen by Dr. Ortiz and an x-ray of his abdomen and ultrasound of his kidneys was ordered. The renal ultrasound shows no obstructive uropathy with urinary bladder partially distended with a volume of 218 mL. KUB x-ray shows mild to moderate stool burden with nonspecific bowel gas pattern but no radiopaque calcifications overlying the renal shadows or the psoas muscles. The patient states that earlier this evening he became acutely dizzy. The dizziness is worse with movement. He has not had any blurred vision, slurred speech, confusion or any focal weakness numbness or tingling. He does not have any chest pain or shortness of breath. He does not become diaphoretic. He denies any abdominal pain or flank pain at this time. He does have a history of a bleeding ulcer but has not had any hematemesis or hematochezia. He is not having any nausea. He has no neck pain or stiffness. He has not had a fever. He is diabetic and checked his sugar and his sugar was not low. He denies any ear pain, sore throat or congestion. Related Data Allergies Allergy/AdvReac Type Severity Reaction Status Date / Time No Known Drug Allergies Allergy Verified 03/27/25 21:15 Review of Systems ROS Status of ROS 10 or more systems reviewed and unremarkable except as noted in history and below PFSH PFSH Social History Little interest or pleasure in doing things: not at all Feeling down, depressed, or hopeless: not at all Exam Narrative Exam Narrative: Vital signs and Nursing Notes reviewed: Patient is afebrile with normal pulse, documented blood pressure was 181/108 but manual blood pressure was in the 150s over 80s, he is not hypoxic with pulse ox of 97% on room air General: Thin male, he is awake, alert, oriented, no acute distress, lying comfortably on the stretcher HEENT: Normocephalic atraumatic, mucous membranes are moist and pink, eyes are clear, normal conjunctiva, vision is grossly intact, posterior pharynx is normal in appearance. Tympanic membranes are normal bilaterally Neck: Supple, no meningeal signs, no anterior or posterior cervical lymphadenopathy Chest: Lungs are clear to auscultation with good air entry, there is no wheezing rhonchi or rales appreciated no accessory muscle use, patient is speaking in complete sentences-no chest wall tenderness to palpation CVS: Regular rate and rhythm S1-S2, no murmurs rubs or gallops, pulses are brisk and equal bilaterally ABD: Soft, nondistended, mild tenderness in the right lower quadrant, negative Rovsing sign, no flank tenderness, no rebound guarding or rigidity, bowel sounds are normal, no pulsatile masses appreciated Extremities: Moving all extremities, no lower extremity tenderness or swelling noted, negative Homans' sign, pulses are brisk and equal bilaterally Skin: Normal in appearance without rash,pallor, petechiae or purpura Neuro: No focal deficits Constitutional Vital Signs, click to edit/add: Last Vital Signs Temp 97.6 F 03/27/25 21:15 Pulse 88 03/27/25 21:15 Resp 16 03/27/25 21:15 BP 181/108 H 03/27/25 21:15 Pulse Ox 97 03/27/25 21:15 O2 Del Method Room Air 03/27/25 21:15 Course Vital Signs Vital signs: Vital Signs Temperature 97.6 F 03/27/25 21:15 Pulse Rate 88 03/27/25 21:15 Respiratory Rate 16 03/27/25 21:15 Blood Pressure 181/108 H 03/27/25 21:15 Pulse Oximetry 97 03/27/25 21:15 Oxygen Delivery Method Room Air 03/27/25 21:15 Temperature 97.6 F 03/27/25 21:15 Pulse Rate 88 03/27/25 21:15 Respiratory Rate 16 03/27/25 21:15 Blood Pressure 181/108 H 03/27/25 21:15 Pulse Oximetry 97 03/27/25 21:15 Oxygen Delivery Method Room Air 03/27/25 21:15 MDM - Dizziness MDM Narrative Medical decision making narrative: This 64-year-old male with a history of kidney stones was recently seen by Dr. Ortiz due to right lower quadrant abdominal pain presents for evaluation of ongoing right lower quadrant abdominal pain and an episode of dizziness earlier this evening. He is not having any chest pain or shortness of breath. He denies any abdominal pain or flank pain upon arrival. His x-ray that was done yesterday and ultrasound that was done yesterday were reviewed and he was given copies of the x-ray and ultrasound reports. They do not show any acute findings. He is not having any urinary symptoms. He states he does have a history of a bleeding ulcer but is not having any upper abdominal pain, hematemesis or dark tarry stools. EKG done upon arrival was a sinus rhythm at 70 bpm. An IV was placed and he was medicated with IV fluids. He declined the need for anything for pain or nausea. He was also given a dose of meclizine for his dizziness. His neuroexam is normal. He does not have any nystagmus. He has not had any antecedent blurred vision, slurred speech or confusion. He does not have any focal neurologic weakness numbness or tingling. Routine labs are ordered. He has a normal white count and stable hemoglobin. Electrolytes are normal. Glucose is not elevated it is 83. Troponin is normal. CT scan of the brain and abdomen pelvis were ordered. CT scan of the head is negative for acute findings and CT scan of abdomen pelvis shows no acute inflammatory process no bowel obstruction or perforation, no acute appendicitis colitis or diverticulitis, there was no kidney stones noted. The results of the scans and his urine which was normal were discussed with the patient and his . I suggested that he follow-up as an outpatient for a colonoscopy. He states he did have a colonoscopy about a year ago. He does do a lot of weight lifting and he may have a strain of an abdominal wall muscle. Otherwise his workup is normal. His dizziness is improved after IV fluids and meclizine. His neuroexam remains normal and stable. He will be discharged home with a prescription for meclizine and ibuprofen. He was instructed to return to the emergency department as needed for worsening symptoms, continue following up with Dr. Ortiz from urology and his family doctor as needed. Lab Data Attestation: I reviewed the patient's lab results. Labs: Lab Results 03/27/25 03/27/25 Range/Units 21:45 23:05 WBC 9.5 (4.0-11.0) 10^3/uL RBC 4.44 L (4.70-6.10) 10^6/uL Hgb 13.6 L (14.0-18.0) g/dL Hct 39.8 L (42.0-54.0) % MCV 89.6 (80.0-94.0) fL MCH 30.6 (25.9-34.0) pg MCHC 34.2 (29.9-35.2) g/dL RDW 12.1 (11.0-15.0) % Plt Count 193 (150-450) 10^3/uL MPV 9.4 L (9.5-13.5) fL Neut % (Auto) 71.8 (43.0-75.0) % Lymph % (Auto) 15.8 L (20.5-60.0) % [place] % (Auto) 7.0 (1.7-12.0) % Eos % (Auto) 4.4 (0.9-7.0) % Baso % (Auto) 0.6 (0.2-2.0) % Neut # (Auto) 6.8 H (1.4-6.5) 10^3/uL Lymph # (Auto) 1.5 (1.2-3.8) 10^3/uL [place] # (Auto) 0.7 (0.3-0.8) 10^3/uL Eos # (Auto) 0.4 (0.0-0.7) 10^3/uL Baso # (Auto) 0.1 (0.0-0.1) 10^3/uL Abs Immat Gran (auto) 0.04 H (0.00-0.03) 10^3/uL Imm/Tot Granulo (auto) 0.4 (0.0-0.5) % Sodium 138 (136-145) mmol/L Potassium 3.6 (3.5-5.1) mmol/L Chloride 100 (98-107) mmol/L Carbon Dioxide 30.9 (21.0-32.0) mmol/L Anion Gap 10.7 BUN 21.0 H (7.0-18.0) mg/dL Creatinine 0.97 (0.70-1.30) mg/dL Est GFR ( Amer) >60 (>=60 mL/min/1.73m^2) Est GFR (Non-Af Amer) >60 (>=60 mL/min/1.73m^2) BUN/Creatinine Ratio 21.6 Glucose 83 (74-106) mg/dL Calcium 8.9 (8.5-10.1) mg/dL Total Bilirubin 0.4 (0.2-1.0) mg/dL AST 23 (15-37) U/L ALT 40 (16-63) U/L Alkaline Phosphatase 82 (46-116) U/L Troponin I High Sens 6.0 (4.0-76.1) pg/mL Total Protein 7.5 (6.4-8.2) g/dL Albumin 3.9 (3.4-5.0) g/dL Globulin 3.6 g/dL Albumin/Globulin Ratio 1.1 Urine Color Lt. yellow (YELLOW) Urine Clarity Clear (CLEAR) Urine pH 5.5 (5.0-9.0) Ur Specific [place] <=1.005 A (1.005-1.025) Urine Protein Negative (NEG/TRACE) mg/dL Urine Glucose (UA) Negative (NEGATIVE) mg/dL Urine Ketones Trace A (NEGATIVE) mg/dL Urine Occult Blood Negative (NEGATIVE) Urine Nitrite Negative (NEGATIVE) Urine Bilirubin Negative (NEGATIVE) Urine Urobilinogen 0.2 (0.2-1.0) EU/dL Ur Leukocyte Esterase Negative (NEGATIVE) Urine RBC None seen (0-2) #/HPF Urine WBC None seen (NONE SEEN) #/HPF Ur Squamous Epith Cells Rare (NONE/RARE) #/LPF Urine Crystals None seen (None Seen) #/HPF Urine Bacteria None seen (NONE SEEN) #/HPF Urine Casts None seen (NONE SEEN) #/LPF Urine Mucus None seen (NONE SEEN) Ur Culture Indicated? No ECG Data Attestation: I personally reviewed and interpreted this ECG as follows: (Sinus rhythm at 70 bpm normal axis, normal intervals, no acute ST segment elevation or T wave inversion) Discharge Plan Discharge Chief Complaint: Dizziness Clinical Impression: Benign paroxysmal positional vertigo, Abdominal pain, RLQ Patient Disposition: Home, Self-Care Time of Disposition Decision: 23:35 Condition: Good Print Language: [place] Instructions: Vertigo (ED), Abdominal Pain (ED), Dizziness (ED) Referrals: LEANNA BASURTO [Primary Care Provider, [facility]] - 1 week
[2025-03-27 21:52] LABS: Hematocrit 39.8 % (42.0-54.0); Hemoglobin 13.6 g/dL (14.0-18.0); Immature Granulocytes Abs Auto 0.04 10^3/uL (0.00-0.03); Immature Granulocytes Pct Auto 0.4 % (0.0-0.5); Lymphocytes Absolute Auto 1.5 10^3/uL (1.2-3.8); Mean Corpuscular HGB Conc 34.2 g/dL (29.9-35.2); Mean Corpuscular Hemoglobin 30.6 pg (25.9-34.0); Mean Corpuscular Volume 89.6 fL (80.0-94.0); Platelet Count 193 10^3/uL (150-450); Red Blood Count 4.44 10^6/uL (4.70-6.10); White Blood Count 9.5 10^3/uL (4.0-11.0)
[2025-03-27] MEDS: 0.9 % SODIUM CHLORIDE 1,000 ML 1000 ML IV (22:09)
[2025-03-27] MEDS: MECLIZINE HCL 12.5 MG TABLET 25 MG PO (22:09)
[2025-03-27 22:12] LABS: Alanine Aminotransferase 40 U/L (16-63); Albumin Globulin Ratio 1.1; Albumin Level 3.9 g/dL (3.4-5.0); Alkaline Phosphatase 82 U/L (46-116); Anion Gap 10.7; Aspartate Amino Transferase 23 U/L (15-37); Blood Urea Nitrogen 21.0 mg/dL (7.0-18.0); Calcium 8.9 mg/dL (8.5-10.1); Carbon Dioxide 30.9 mmol/L (21.0-32.0); Chloride 100 mmol/L (98-107); Estimated GFR (African America >60 (>=60 mL/min/1.73m^2); Estimated GFR (Non-African Ame >60 (>=60 mL/min/1.73m^2); Globulin 3.6 g/dL; Glucose 83 mg/dL (74-106); Potassium 3.6 mmol/L (3.5-5.1); Sodium 138 mmol/L (136-145); Total Protein 7.5 g/dL (6.4-8.2)
[2025-03-27 23:13] LABS: Glucose Urine UA NEGATIVE (NEGATIVE)
[2025-03-27 23:25] LABS: Cast Seen? NONE SEEN #/LPF (NONE SEEN); Crystals Seen? None Seen #/HPF (None Seen); Urine Culture Indicated NO
[2025-03-27 23:44] VITALS: BP 155/85; PULSE 84; O2SAT 98
== END 2025-03-27 23:46 | disposition home or self-care (01) ==
PROVIDERS: Emergency Provider Emergency Medicine; PCP Family Medicine
DX: R10.31 Right lower quadrant pain (principal); H81.10 Benign paroxysmal vertigo, unspecified ear; Z87.442 Personal history of urinary calculi; E11.9 Type 2 diabetes mellitus without complications
CPT/HCPCS: 36415; 70450; 74177; 80053; 81001; 84484; 85025; 93005; 99285; Q9967

== ENCOUNTER 2025-04-01 03:24 | Emergency (ER) | payer OTHER, SELFPAY ==
--- OUTSIDE RECORDS SUMMARY | 2025-03-30 11:40 | XMS_ITS | Encounter Summary ---
Author Organization [facility] Address [address] [place] [address] Care Team Providers Care Lumber Scaler Name Role Phone Alejandro Umaña MD Primary Care Provider [phone] Alejandro Umaña MD Unavailable [phone] Reason for Visit * Reason Comments Abdominal Pain Patient is here for right lower abdominal pain. Patient reports that it has been going on for about 2 weeks now. Patient called his urologist and they sent him for a CT scan that came back negative. Patient states that the pain continued and he went to [facility] on 03/27/25 and they did labs, xray, and US and everything came back normal there too. Patient reports that he is still having the abdominal pain. He denies any changes in urination, or with bowel movements. Encounter Details Date Type Department Care Team (Latest Contact Info) Description 03/30/2025 11:40 AM EDT Office Visit [facility] [address] [place] [address] [place] [address] [place] [address] Lumbosacral strain, initial encounter (Primary Dx); Type 2 diabetes mellitus without complications (HCC); Unspecified chronic bronchitis (HCC); Spasm of abdominal muscles Social History Tobacco Use Types Packs/Day Years [...] on file documented as of this encounter Last Filed Vital Signs Vital Sign Reading Time Taken Comments Blood Pressure 140/86 03/30/2025 11:44 AM EDT Pulse 71 03/30/2025 11:44 AM EDT Temperature 36.4 C (97.5 F) 03/30/2025 11:44 AM EDT Respiratory Rate 18 03/30/2025 11:44 AM EDT Oxygen Saturation 99% 03/30/2025 11:44 AM EDT Inhaled Oxygen Concentration - - Weight 69.9 kg (154 lb) 03/30/2025 11:44 AM EDT Height 177.8 cm (5' 10 ) 03/30/2025 11:44 AM EDT Body Mass Index 22.1 03/30/2025 11:44 AM EDT documented in this encounter Progress Notes * Alejandro Umaña MD - 03/30/2025 11:40 AM EDT Images from the original note were not included. Sd Cardozo is a 64 y.o. male presents with chief complaint of Abdominal Pain (Patient is here for right lower abdominal pain. Patient reports that it has been going on for about 2 weeks now. Patient called his urologist and they sent him for a CT scan that came back negative. Patient states that the pain continued and he went to [facility] on 03/27/25 and they did labs, xray, and US andeverything came back normal there too. Patient reports that he is still having the abdominal pain. He denies any changes in urination, or with bowel movements. ) HPI: Patient has a history of kidney stones he has been having right-sided lower abdominal pain now for 2 weeks. He is unsure of how her what started it. The pain is really right lower quadrant down the whole quadrant along the iliac crest. He is not really having any other symptoms. CT scan x-rays and blood work have all been normal. It is possible potentially has something internal going on that we have not found yet but I did notice today that he has a lumbosacral strain he has a significant misaligned pelvis. In seeing that I am wondering if these are not abdominal spasms. An he really describes him as abdominal spasms. Really nothing trips them off nothing seems to make them better. He has been trying to stretch to relieve it. He does have a chiropractor the sees I think we will be usefulas well as I am going to start him on some muscle relaxers and anti-inflammatories to take regularly cool things down. We did also give him some hips too tight stretching to see if that does not benefit his symptoms. Also of note patient's blood sugars are doing well his last A1c was 6.9 percent. Patient is not having any respiratory issues. Abdominal Pain SUBJECTIVE: MEDICATIONS: Current Outpatient Medications Medication Instructions [...] (ANTIVERT) 25 mg, 3 times daily PRN methocarbamol (ROBAXIN) 750 mg, Oral, 3 times daily naproxen (NAPROSYN) 500 mg, Oral, 2 times daily PRN NovoLOG FLEXPEN 100 UNIT/ML pen PLEASE SEE ATTACHED FOR DETAILED DIRECTIONS ondansetron (ZOFRAN) 4 mg, Oral, Nightly Spiriva Respimat 2.5 mcg, Daily RT therapeutic multivitamin-minerals (Theragran-M) tablet 1 tablet, Daily Tresiba FlexTouch 100 UNIT/ML injection INJECT 14 TO 16 UNITS UNDER THE SKIN IN THE MORNING ALLERGIES: Allergies[1] REVIEW OF SYMPTOMS: Review of Systems Gastrointestinal: Positive for abdominal pain. OBJECTIVE: Visit Vitals BP 140/86 (BP Location: Left arm, Patient Position: Sitting, BP Cuff Size: Adult) Pulse 71 Temp 97.5 ??F Resp 18 Ht 5' 10 Wt 154 lb SpO2 99% BMI 22.10 kg/m?? Smoking Status Never BSA 1.86 m?? Physical Exam Constitutional: Appearance: Normal appearance. HENT: Head: Normocephalic and atraumatic. Abdominal: General: Abdomen is flat. Palpations: Abdomen is soft. Tenderness: There is abdominal tenderness. Comments: Pain with palpation no rebound no guarding Musculoskeletal: Comments: Pelvis is out of alignment no sacroiliac pain Neurological: Mental Status: He is alert. ASSESSMENT AND PLAN: Assessment/Plan Diagnoses and all orders for this visit: Lumbosacral strain, initial encounter - methocarbamol (Robaxin) 750 MG tablet; Take 1 tablet (750 mg) by mouth 3 (three) times a day - naproxen (Naprosyn) 500 MG tablet; Take 1 tablet (500 mg) by mouth 2 (two) times a day as needed for mild pain (pain) Type 2 diabetes mellitus without complications (HCC) Unspecified chronic bronchitis (HCC) Spasm of abdominal muscles - methocarbamol (Robaxin) 750 MG tablet; Take 1 tablet (750 mg) by mouth 3 (three) times a day Other orders - Follow Up In Family Medicine; Future Follow up with Dr. Alejandro Umaña in 3 weeks (on 04/20/2025). [1] Allergies Allergen Reactions Dust Mite Extract documented in this encounter Miscellaneous Notes * Addendum Note - JOCELIN THAO - 03/30/2025 11:40 AM EDTAddended by: JOCELIN THAO on: 03/30/2025 12:41 PM Modules accepted: Orders documented in this encounter Plan of Treatment Not on file documented as of this encounter Procedures Procedure Name Priority Date/Time Associated Diagnosis Comments POCT URINALYSIS DIPSTICK Routine 03/30/2025 12:40 PM EDT Spasm of abdominal muscles documented in this encounter Results * POCT urinalysis dipstick manually resulted (03/30/2025 12:40 PM EDT) Color, UA Yellow Clarity, UA Clear Glucose, UA Negative Negative - 2000(110) ++++ mg/dL Bilirubin, UA Negative Negative - 4(70) +++ mg/dL Ketones, UA Negative Negative - 160(16) ++++ mg/dL Spec Grav, UA 1.005 1 - 1.03 Blood, UA Negative Negative - 50 Hipolito/mcL pH, UA 5.0 5 - 9 Protein, UA Negative Negative - 2000(20) ++++ mg/dL Urobilinogen, UA 0.2 0.2 - 12 mg/dL Leukocytes, UA Negative Negative - 500+++ Lucrecia/mcL Nitrite, UA Negative Negative - Positive Urine 03/30/2025 12:4 0 PM EDT Alejandro Umaña MD POINT OF CARE TEST ENTER/EDIT ORDERABLES Final Result documented in this encounter Visit Diagnoses Diagnosis Lumbosacral strain, initial encounter- Primary Type 2 diabetes mellitus without complications (HCC) Unspecified chronic bronchitis (HCC) Unspecified chronic bronchitis Spasm of abdominal muscles documented in this encounter Care Teams Lumber Scaler Relationship Specialty Start Date [place]jandro [place] [address] [place] [id number] PCP - General Family Medicine 11/27/22 [place] [address] [place] [address] PCP - [facility] [employer] 06/16/15 06/15/99 documented as of this encounter
[2025-04-01] VITALS (39 sets, daily range): BP systolic 113–139; BP diastolic 58–73; PULSE 66–108; TEMP 37; O2SAT 93–100; BMI 22.2
--- NOTE | 2025-04-01 03:30 | ECG_ITS ---
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
--- OUTSIDE RECORDS SUMMARY | 2025-04-01 03:36 | XMS_ITS | Encounter Summary ---
Author Organization [facility] Address [address] [place] [address] Care Team Providers Care Solution Professional Name Role Phone Alejandro Umaña MD Primary Care Provider [phone] Alejandro Umaña MD Unavailable [phone] Encounter Details Date Type Department Care Team (Late st Contact Info) Description 03/26/2025 Clinisync Result Encounter [facility] External Department Unsolicited Provider, Generic External Data Social History Tobacco Use Types Packs/Day Years [...] Procedure Name Priority Date/Time Associated Diagnosis Comments XR ABDOMEN 1V 03/26/2025 3:51 PM EDT documented in this encounter Results * XR ABDOMEN 1V (03/26/2025 3:51 PM EDT) Anatomical Region Laterality Modality Other 03/26/2025 3:51 PM EDT Narrative 03/26/2025 3:53 PM EDT The [address] [address] XRay Report Signed Patient: SD CARDOZO MR#: [id number] : 1960 Acct:[id number] Age/Sex: 64 / M ADM Date: 03/26/25 Loc: US Attending Dr: Rafaela REYES Ordering Physician: Rafaela Vance Date of Service: 03/26/25 Procedure(s): XR abdomen 1V Accession Number(s): [id number] cc: ALEJANDRO UMAÑA ; Rafaela Vance The [place] [address] Patient Name: SD CARDOZO MRN: [id number] date: 1960 Sex: M Assigned Patient Location: US Current Patient Location: US Accession/Order Number: [id number] Exam Date: 03/26/2025 14:20 Report Date: 03/26/2025 15:51 At the request of: RAFAELA REYES Procedure: XR abdomen 1V KUB INDICATION: Kidney stone, right-sided flank pain COMPARISON: Ultrasound 03/26/2025 FINDINGS: Rply-fk-ekstesgl stool burden. Nonspecific nonspecific bowel gas pattern. No radiopaque calcifications overlying the renal shadows or the psoas muscles. Osseous structures are noncontributory. XR/XR abdomen 1V IMPRESSION: No radiopaque calculi identified. Impression dictated by: Bill Jade M.D. 03/26/2025 3:51 PM Dictation Location: [place] [address] Electronically authenticated by: [id number] Y Date: 03/26/2025 15:51 Dictated By: Bill Jade M.D. Signed By: 03/26/25 1553 DD/ 1551 TD/TT: Assembler Filters: Procedure Note Radiology, Radiologist, MD - 03/26/2025 [place] [address] XRay Report Signed Patient: SD CARDOZO JMR#: [id number] : 1960cct:[id number] Age/Sex: 64 / MADM Date: 03/26/25 Loc: US Attending Dr: Rafaela REYES Ordering Physician: Rafaela Vance Date of Service: 03/26/25 Procedure(s): XR abdomen 1V Accession Number(s): [id number] cc: ALEJANDRO UMAÑA ; Rafaela Vance [place] [id number] Patient Name: SD CARDOZO MRN: [id number] date: 1960 Sex: M Assigned Patient Location: US Current Patient Location: US Accession/Order Number: [id number] Exam Date: 03/26/2025 14:20 Report Date: 03/26/2025 15:51 At the request of: RAFAELA REYES Procedure: XR abdomen 1V KUB INDICATION: Kidney stone, right-sided flank pain COMPARISON: Ultrasound 03/26/2025 FINDINGS: Rkuu-up-tdguzqcr stool burden. Nonspecific nonspecific bowelgas pattern. No radiopaque calcifications overlying the renal shadows or the psoas muscles. Osseous structures are noncontributory. XR/XR abdomen 1V IMPRESSION: No radiopaque calculi identified. Impression dictated by: Bill Jade M.D. 03/26/2025 3:51 PM Dictation Location: [place] [address] Electronically authenticated by: [id number] Y Date: 5:51 Dictated By: Bill Jade M.D. Signed By:03/26/25 1553 DD/ 1551 TD/TT: Assembler Filters: Generic External Data Provider [facility] Final Result documented in this encounter Visit Diagnoses Not on filedocumented in this encounter Care Teams Solution Professional Relationship Specialty Start Date [place] [address] [place] [address] PCP - General Family Medicine 11/27/22 Ale[place] [address] [place] [address] PCP - Medical [place] [employer] 06/16/15 06/15/99 documented as of this encounter
--- OUTSIDE RECORDS SUMMARY | 2025-04-01 03:36 | XMS_ITS | Encounter Summary ---
Author Organization [facility] Address [address] [place] [address] Care Team Providers Care Media Marketing Coordinator Name Role Phone Alejandro Umaña MD Primary Care Provider [phone] Alejandro Umaña MD Unavailable [phone] Encounter Details Date Type Department Care Team (Late st Contact Info) Description 03/30/2025 Bamboo flowsheet [facility] [address] [address] [place] [address] [id number] Social History Tobacco Use Types Packs/Day Years [...] on filedocumented in this encounter Care Teams Media Marketing Coordinator Relationship Specialty Start Date [place] [address] [address] PCP - General Family Medicine 11/27/22 [place] [address] [address] PCP - Medical [place] [employer] 06/16/15 06/15/99 documented as of this encounter
--- OUTSIDE RECORDS SUMMARY | 2025-04-01 03:36 | XMS_ITS | Encounter Summary ---
Author Organization [facility] Address [address] [place] [address] Care Team Providers Care Range Manager Name Role Phone Alejandro Umaña MD Primary Care Provider [phone] Alejandro Umaña MD Unavailable [phone] Encounter Details Date Type Department Care [...] Procedure Name Priority Date/Time Associated Diagnosis Comments US RENAL BI 03/26/2025 3:49 PM EDT documented in this encounter Results * US RENAL BI (03/26/2025 3:49 PM EDT) Anatomical Region Laterality Modality Other 03/26/2025 3:49 PM EDT Narrative 03/26/2025 3:51 PM EDT The [address] [address] Ultrasound Report Signed Patient: SD CARDOZO MR#: [id number] : 1960 Acct:[id number] Age/Sex: 64 / M ADM Date: 03/26/25 Loc: US Attending Dr: Rafaela REYES Ordering Physician: Rafaela Vance Date of Service: 03/26/25 Procedure(s): US renal BI Accession Number(s): [id number] cc: ALEJANDRO UMAÑA ; Rafaela Vance The [place] [id number] Patient Name: SD CARDOZO MRN: [id number] date: 1960 Sex: M Assigned Patient Location: US Current Patient Location: US Accession/Order Number: [id number] Exam Date: 03/26/2025 14:07 Report Date: 03/26/2025 [...] Jade M.D. 03/26/2025 3:49 PM Dictation Location: [place] [address] Electronically authenticated by: [id number] Y Date: 03/26/2025 15:49 Dictated By: Bill Jade M.D. Signed By: 03/26/25 1551 DD/ 1549 TD/TT: Flower Cutter: Procedure Note Radiology, Radiologist, MD - 03/26/2025 [place] [address] Ultrasound Report Signed Patient: SD CARDOZO JMR#: [id number] : 1960cct:[id number] Age/Sex: 64 / MADM Date: 03/26/25 Loc: US Attending Dr: Rafaela REYES Ordering Physician: Rafaela Vance Date of Service: 03/26/25 Procedure(s): US renal BI Accession Number(s): [id number] cc: ALEJANDRO UMAÑA ; Rafaela Vance [address] [address] Patient Name: SD CARDOZO MRN: [facility]:[id number] date: 1960 Sex: M Assigned Patient Location: US Current Patient Location: US Accession/Order Number: [id number] Exam Date: 03/26/2025 14:07 Report Date: 03/26/2025 15:49 At the request of: RAFAELA REYES Procedure: US renal BI BILATERAL RENAL AND BLADDER ULTRASOUND CLINICAL HISTORY: Kidney stone right-sided flank pain COMPARISON: None Estimation of renal size is approximately 10.5 x 5.5 x 4.3 cm on theright and 9.9 x 5.3 x 4.8 cm on the left. No contour deforming mass, shadowing stone or hydronephrosis. The urinary bladder is partially distended with a volume of 218.1 ml. No shadowing stone or focal lesion. US/US renal BI IMPRESSION: NO OBSTRUCTIVE UROPATHY. Impression dictated by: Bill Jade M.D. 03/26/2025 3:49 PM Dictation Location: [place] [address] Electronically authenticated by: [id number] Y Date: 5:49 Dictated By: Bill Jade M.D. Signed By:03/26/25 1551 DD/ 1549 TD/TT: Flower Cutter: us Generic External Data Provider [facility] Final Result documented in this encounter Visit Diagnoses Not on filedocumented in this encounter Care Teams Range Manager Relationship Specialty Start Date [place] Alejandro Umaña [place] [address] [place] [address] PCP - General Family Medicine 11/27/22 Alej[place] [address] [place] [address] PCP - Medical [place] [employer] 06/16/15 06/15/99 documented as of this encounter
--- OUTSIDE RECORDS SUMMARY | 2025-04-01 03:36 | XMS_ITS | Encounter Summary ---
Author Organization [facility] Address [address] [place] [address] Care Team Providers Care Production Quality Manager Name Role Phone Alejandro Umaña MD Primary Care Provider [phone] Alejandro Umaña MD Unavailable [phone] Encounter Details Date Type Department Care Team (Late st Contact Info) Description 03/26/2025 Abstract [facility] [place] [facility] [address] [address] [place] [address] [id number] Social History Tobacco Use Types Packs/Day Years [...] on filedocumented in this encounter Care Teams Production Quality Manager Relationship Specialty Start Date [place] [address] [address] PCP - General Family Medicine 11/27/22 [place] [address] [phone] PCP - Medical [place] [employer] 06/16/15 06/15/99 documented as of this encounter
--- OUTSIDE RECORDS SUMMARY | 2025-04-01 03:36 | XMS_ITS | Encounter Summary ---
Author Organization [facility] Address [id number] [place] [address] Care Team Providers Care Rewinder Name Role Phone Linda Lozada PRODUCTION BROACHING MACHINE OPERATOR-PURCHASING CLERK Primary Care Provider Reason for Visit * Reason Comments Med Refill Encounter Details Date Type Department Care Team ([facility] Contact Info) Description 10/11/2022 Refill [facility] [address] [place] [address] Linda Lozada, PRODUCTION BROACHING MACHINE [facility] [address] [place] [address] Diabetes mellitus type 1, controlled, insulin dependent ([facility]) Social History Tobacco Use Types Packs/Day Years [...] Upcoming Encounters Date Type Department Care Team ([facility] Contact Info) Description 04/29/2025 3:00 PM EST Office Visit [facility] [address] [place] [address] Linda Lozada, RENETTA-PURCHASING CLERK [address] [place] [address] documented as of this encounter Visit Diagnoses Diagnosis Diabetes mellitus type 1, controlled, insulin dependent ([facility]) documented in this encounter Care Teams Rewinder Relationship Specialty Start Date End Date Linda Lozada, PRODUCTION BROACHING MACHINE OPERATOR-PURCHASING CLERK [address] [place] [address] PCP - General Family Medicine 09/17/22 documented as of this encounter
--- OUTSIDE RECORDS SUMMARY | 2025-04-01 03:36 | XMS_ITS | Encounter Summary ---
Author Organization [facility] Address [address] [place] [address] Care Team Providers Care Javascript Front End Developer Name Role Phone Alejandro Umaña MD Primary Care Provider [phone] Alejandro Umaña MD Unavailable [phone] Encounter Details Date Type Department Care Team (Late st Contact Info) Description 03/27/2025 Abstract [facility] [place] [facility] [address] [address] [place] [address] [phone] Social History Tobacco Use Types Packs/Day Years [...] on filedocumented in this encounter Care Teams Javascript Front End Developer Relationship Specialty Start Date [place] [address] [address] PCP - General Family Medicine 11/27/22 [place] [address] [phone] PCP - Medical [place] [employer] 06/16/15 06/15/99 documented as of this encounter
--- OUTSIDE RECORDS SUMMARY | 2025-04-01 03:36 | XMS_ITS | Encounter Summary ---
Author Organization [facility] Address [address] [place] [address] Care Team Providers Care Manager Web Application Name Role Phone Alejandro Umaña MD Primary Care Provider [phone] Alejandro Umaña MD Unavailable [phone] Encounter Details Date Type Department Care Team (Latest Contact Info) Description 03/30/2025 Travel Social History Tobacco Use Types Packs/Day Years [...] on filedocumented in this encounter Care Teams Manager Web Application Relationship Specialty Start Date [place] Alejandro U[place] [address] [place] [address] PCP - General Family Medicine 11/27/22 [place] [address] [place] [address] PCP - Medical [place] [employer] 06/16/15 06/15/99 documented as of this encounter
--- OUTSIDE RECORDS SUMMARY | 2025-04-01 03:37 | XMS_ITS | CCD ---
Author Organization [facility] Care Team Providers Care Cottage Master Name Role Phone Alejandro Umaña Primary Care Provider [phone] ADA AKHTAR Referring Unavailable ALEJANDRO UMAÑA Primary Care Unavailable Alejandro Umaña Primary Care Provider [phone] ANGELIQUE ., DR ALVAREZ Admitting Unavailable ANGELIQUE ., DR ALVAREZ Attending Unavailable ANGELIQUE ., DR ALVAREZ Consulting Unavailable MD Kim Ortiz Attending Provider MD Alejandro Umaña Primary Care Provider [phone] Alejandro Umaña Primary Care Unavailable Kim Ortiz Attending Unavailable Kim Ortiz Admitting Unavailable Alejandro Umaña MD Primary Care Provider [phone] ALEJANDRO UMAÑA Attending Unavailable ALEJANDRO UMAÑA Referring [...] Primary Care Provider Alejandro Umaña MD Unavailable ALEJANDRO UMAÑA Attending Unavailable PRATIMA CORTES Attending Unavailable Chani Connelly Primary Care Provider Livingood 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, Chani M Primary Care Provider Kim ORTIZ Attending Unavailable Kim ORTIZ Attending Unavailable LIVINGOOD, CHANI M Attending Unavailable LIVINGOOD, CHANI M Referring Unavailable LIVINGOOD, CHANI M Primary Care Unavailable LIVINGOOD, CAHNI M Attending Unavailable LIVINGOOD, CHANI M Referring [...] (1 source) MITE EXTRACT Drug Allergy 6 [facility] (7 sources) MITE EXTRACT Drug Allergy 6 [place], [place] (18 sources) house dust allergenic extract; Translations: [HOUSE DUST] Drug Allergy 4 [facility] (9 sources) House dust mite Propensity to adverse reactions 6 [facility] Healthcare Medications Current Medications Medication Drug Class(es) Dates Sig (Normalized) Sig (Original) [id number] actuat albuterol 0.09 mg/actuat metered dose [...] Inhaler 0 06/19/2016 Active AMBULATORY COMPOUNDED MEDICATION (10 sources) Start: 03-19-2024 AMBULATORY COMPOUNDED MEDICATION Indications: [...] aspirin 81 mg delayed release oral tablet (17 sources) Platelet Aggregation Inhibitor, Nonsteroidal Anti-inflammatory Drug [...] Repeat number: 1 blood-glucose meter,continuous (DEXCOM G6 CHICKEN STUFFER) misc (19 sources) Start: 09-17-2022 blood-glucose meter,continuous (DEXCOM G6 CHICKEN STUFFER) misc Indications: Diabetes mellitus type 1, controlled, insulin dependent ([facility]) 1 Device by miscellaneous route continuously. 1 each 09/17/2022 Active Start: 09-17-2022 blood-glucose meter,continuous (DEXCOM G6 CHICKEN STUFFER) misc Indications: Diabetes mellitus type 1, controlled, insulin dependent ([facility]) 1 Device by miscellaneous route continuously. 1 each 0 09/17/2022 Active blood-glucose meter,continuous (DEXCOM G7 CHICKEN STUFFER) misc (13 sources) blood-glucose meter,continuous (DEXCOM G7 CHICKEN STUFFER) misc Inject 1 each under the skin every 10 days. Active blood-glucose sensor (DEXCOM G6 SENSOR) device (19 sources) Start: 09-17-2022 blood-glucose sensor (DEXCOM G6 SENSOR) device Indications: Diabetes mellitus type 1, controlled, insulin dependent ([facility]) 1 each by miscellaneous route every 10 days. 10 each 09/17/2022 Active blood-glucose transmitter (DEXCOM G6 TRANSMITTER) device (19 sources) Start: 09-17-2022 blood-glucose transmitter (DEXCOM G6 TRANSMITTER) device Indications: Diabetes mellitus type 1, controlled, insulin dependent ([facility]) 1 Device by miscellaneous route every [...] Blood Gluc Sensor (Dexcom G6 Sensor) misc (9 sources) Continuous Blood Gluc Sensor (Dexcom G6 Sensor) misc Active docusate sodium 100 mg oral capsule (7 sources) Start: 09-11-2019 take 1 capsule by mouth twice daily docusate sodium (COLACE) 100 MG capsule Take 1 capsule by mouth 2 times daily 30 capsule 0 09/11/2019 Active fluticasone propionate 0.05 mg/actuat metered dose nasal spray (9 sources) Corticosteroid take 1 spray(s) nasal route [...] times daily 40 tablet 0 08/08/2016 Active ibuprofen 600 mg oral tablet (2 sources) Nonsteroidal Anti-inflammatory Drug Start: 03-28-2025 End: 03-30-2025 ibuprofen 600 MG tablet Take 600 mg by mouth 03/28/2025 03/30/2025 Discontinued (Therapy completed) 3 ml insulin aspart, human 100 unt/ml pen injector (20 sources) Insulin Analog Start: 06-21-2024 NovoLOG Flexpen U-100 Insulin 100 unit/mL (3 mL) insulin pen Indications: Type 1 diabetes mellitus with hyperglycemia ([facility]) INJECT 3-7 UNITS UNDER SKIN 4 TIMES [...] Indications: Type 1 diabetes mellitus with hyperglycemia ([facility]) INJECT 3-7 UNITS UNDER THE SKIN 4 [...] Diabetes mellitus type 1, controlled, insulin dependent ([facility]) 8 units in morning and 5-8 units [...] Diabetes mellitus type 1, controlled, insulin dependent ([facility]) Inject 14-16 Unit under the skin in the morning. 30 mL 1 10/16/2023 10/02/2024 Discontinued Start: 09-04-2023 End: 10-16-2023 insulin degludec (TRESIBA FLEXTOUCH U-100) 100 unit/mL (3 mL) insulin pen Indications: Diabetes mellitus type 1, controlled, insulin dependent ([facility]) Inject 16 Units under the skin in the morning. 6 mL 09/04/2023 10/16/2023 Discontinued (Reorder) 3 ml insulin glargine 100 unt/ml pen injector (20 sources) Insulin Analog Start: 11-14-2022 End: 09-04-2023 [...] Indications: Type 1 diabetes mellitus with hyperglycemia ([facility]) Inject 10 Units under the skin in [...] separately for accuracy) 0 Active Insulin Lispro (13 sources) Insulin Analog Insulin Lispro ( HUMALOG [...] Active meclizine hydrochloride 25 mg oral tablet (10 sources) Antiemetic Start: 3 take 1 tablet by mouth three times daily as needed for dizziness meclizine (Antivert) 25 MG tablet Take 25 mg by mouth 3 (three) times a day as needed for dizziness. 11/26/2022 Active methocarbamol 750 mg oral tablet (2 sources) Muscle Relaxant Start: 5 End: 5 take 1 tablet by mouth three times daily methocarbamol (Robaxin) 750 MG tablet Indications: Lumbosacral strain, initial encounter , Spasm of abdominal muscles Take 1 tablet (750 mg) by mouth 3 (three) times a day 90 tablet 03/30/2025 04/29/2025 Active Multi Vitamin+ (2 sources) Start: 0 Multi Vitamin+ Refill(s) 0 Start Date: 09/10/19 Status: Ordered Repeat number: 1 Start: 09-10-2019 Multi Vitamin+ Refill(s) 0 Start Date: 09/10/19 Status: Ordered Multiple Vitamins-Minerals (THERAPEUTIC MULTIVITAMIN-MINERALS) tablet (7 sources) take 1 tablet by mouth once daily Multiple Vitamins-Minerals (THERAPEUTIC MULTIVITAMIN-MINERALS) tablet Take 1 tablet by mouth daily 0 Active Multivitamin preparation (19 sources) MULTIVITAMIN (MU LTIPLE VITAMINS ORAL) Take by mouth. Active MULTIVITAMIN (MU LTIPLE VITAMINS ORAL) Take by mouth. 0 Active naproxen 500 mg oral tablet (2 sources) Nonsteroidal Anti-inflammatory Drug Start: 03-30-2025 End: 06-28-2025 take 1 tablet by mouth twice daily as needed for pain naproxen (Naprosyn) 500 MG tablet Indications: Lumbosacral strain, initial encounter Take 1 tablet (500 mg) by mouth 2 (two) times a day as needed for mild pain (pain) 60 tablet 03/30/2025 06/28/2025 Active ondansetron 4 mg oral tablet (9 sources) Serotonin-3 Receptor Antagonist Start: 12-16-2023 take 1 tablet by mouth at bedtime ondansetron (Zofran) 4 MG tablet Indications: Acute intractable tension-type headache Take 1 tablet (4 mg) by mouth at bedtime 30 tablet 12/16/2023 Active polymyxin b 40010 unt/ml / trimethoprim 1 mg/ml ophthalmic solution [...] Active rosuvastatin calcium 5 mg oral tablet (13 sources) HMG-CoA Reductase Inhibitor Start: 04-23-2024 End: [...] daily 30 capsule 0 09/03/2019 Active therapeutic multivitamin-minera ls (Theragran-M) tablet (9 sources) take 1 tablet by mouth in the morning therapeutic multivitamin-mine rals (Theragran-M) tablet Take 1 tablet by mouth in the morning. Active 28 actuat tiotropium 0.27611 mg/actuat inhalation spray (4 sources) Anticholinergic Start: 01-27-2025 Spiriva Respimat 1.25 MCG/ACT aerosol solution Inhale 2.5 mcg in the morning. 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, unspecified] Onset: 03-30-2025 03-30-2025 Chronic Hyperplasia of prostate (8 sources) Benign prostatic hyperplasia with lower urinary tract symptoms; Translations: [Benign prostatic hypertrophy with outflow obstruction] Onset: 08-06-2022 Chronic Inflammatory conditions of male genital organs (2 sources) Prostatitis 07-22-2023 Episodic Occlusion or stenosis of precerebral arteries (20 sources) Stenosis of left vertebral artery; Translations: [Occlusion and stenosis of left vertebral artery] Onset: 11-25-2022 11-25-2022 Chronic Other connective tissue disease (2 sources) Spasm; Translations: [Other muscle spasm] 03-30-2025 Episodic Other connective tissue disease (2 sources) Weakness of face muscles; Translations: [Facial weakness] Onset: 03-30-2025 03-30-2025 Episodic Other ear and sense organ disorders [...] ear] Onset: 12-09-2024 Episodic Other gastrointestinal disorders (3 sources) Constipation; Translations: [Constipation, unspecified] Onset: 03-30-2025 03-30-2025 Episodic Other hereditary and degenerative nervous system conditions (10 sources) Carotidynia; 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] Onset: 12-15-2015 12-15-2015 Chronic Other lower respiratory disease (1 source) Productive cough ; Translations: [Recurrent productive cough] 01-27-2025 Episodic Other screening for suspected conditions (not mental disorders or infectious disease) (11 sources) Elevated prostate specific antigen [PSA]; Translations: [Raised prostate specific antigen] Onset: 10-03-2023 Episodic Other upper respiratory infections (10 sources) Chronic sinusitis; Translations: [Chronic sinusitis, unspecified] [...] [Encounter for screening for depression] 01-27-2025 Episodic Sprains and strains (2 sources) Lumbosacral strain; Translations: [Strain of muscle, fascia and tendon of lower back, initial encounter] 03-30-2025 Episodic Unclassified (1 source) Other specified cough; [...] Onset: 3 Episodic Diabetes mellitus with complications (20 sources) Hyperglycemia due to type 1 diabetes mellitus; Translations: [Type 1 diabetes mellitus with hyperglycemia] Onset: 3 Resolved: 4 06-20-2024 Chronic Fracture of upper limb (4 sources) Closed fracture of scaphoid bone of wrist; Translations: [Unspecified fracture of navicular [scaphoid] bone of unspecified wrist, initial encounter for closed fracture] Onset: 1 03-30-2025 Episodic Immunizations and screening for infectious disease (5 sources) Encounter for immunization; Translations: [Other specified vaccinations against streptococcus pneumoniae [pneumococcus]] Onset: 4 07-27-2024 Episodic Mood disorders (2 sources) Mood disorders Onset: 5 01-27-2025 Other connective [...] Episodic Other ear and sense organ disorders (10 sources) Referred otalgia; Translations: [Otalgia, unspecified ear] Onset: 6 01-25-2016 Episodic Other ear and sense organ disorders (1 source) Otalgia, right ear; Translations: [Otalgia, unspecified] 10-06-2023 Episodic Other lower respiratory disease (10 sources) Hemoptysis; Translations: [Hemoptysis] Onset: 7 08-07-2016 Episodic Other nervous system disorders (1 source) Paresthesia; Translations: [Anesthesia of skin] 02-17-2024 Episodic Other non-traumatic joint disorders (10 sources) Pain in wrist; Translations: [Pain in unspecified wrist] Onset: 6 08-09-2015 Episodic Other upper respiratory disease (10 sources) Bronchospasm; Translations: [Acute bronchospasm] Onset: 7 06-19-2016 Episodic Other upper respiratory infections (20 sources) Recurrent acute sinusitis; Translations: [Acute recurrent maxillary sinusitis] Onset: 6 Resolved: 3 08-09-2015 Episodic Phlebitis; thrombophlebitis and thromboembolism (1 source) Phlebitis and thrombophlebitis of unspecified site; Translations: [Phlebitis and thrombophlebitis of unspecified site] Onset: 3 Episodic Pneumonia (except that caused by tuberculosis or sexually transmitted disease) (10 sources) Infective pneumonia; Translations: [Pneumonia, unspecified organism] Onset: 7 08-07-2016 Episodic Residual codes; unclassified (1 source) History of clinical finding in subject; Translations: [Personal history of other specified conditions] 10-16-2023 Episodic Superficial injury; contusion (2 sources) Abrasion of lower limb; Translations: [Contusion of upper limb] 01-30-2024 Episodic Results Test Name Value Interpretation Reference Range Facility RENAL BIon 03-26-[address] [address] Ultrasound Report Signed Patient: SD CARDOZO MR#: [id number] : 1960 Acct:[id number] Age/Sex: 64 / M ADM Date: 03/26/25 Loc: US Attending Dr: Rafaela REYES Ordering Physician: Rafaela Vance Date of Service: 03/26/25 Procedure(s): US renal BI Accession Number(s): [id number] cc: ALEJANDRO UMAÑA ; Rafaela Vance [address] [address] Patient Name: SD CARDOZO MRN: [id number] date: 1960 Sex: M Assigned Patient Location: US Current Patient Location: US Accession/Order Number: [id number] Exam Date: 03/26/2025 14:07 Report Date: 03/26/2025 [...] Jade M.D. 03/26/2025 3:49 PM Dictation Location: [place] [address] Electronically authenticated by: [id number] Y Date: 03/26/2025 15:49 Dictated By: Bill Jade M.D. Signed By: 03/26/25 1551 DD/ 1549 TD/TT: Paint Prep Technician: [facility] Radiology, Radiologist, MD - 03/26/2025 [facility] [place] [id number] Ultrasound Report Signed Patient: SD CARDOZO MR#: [id number] : 1960 Acct:[id number] Age/Sex: 64 / M ADM Date: 03/26/25 Loc: US Attending Dr: Rafaela REYES Ordering Physician: Rafaela Vance Date of Service: 03/26/25 Procedure(s): US renal BI Accession Number(s): [id number] cc: ALEJANDRO UMAÑA ; Rafaela Vance The [address] [address] Patient Name: SD CARDOZO MRN: [facility]:[id number] date: 1960 Sex: M Assigned Patient Location: US Current Patient Location: US Accession/Order Number: [id number] Exam Date: 03/26/2025 14:07 Report Date: 03/26/2025 [...] Jade M.D. 03/26/2025 3:49 PM Dictation Location: [place] [address] Electronically authenticated by: [id number] Y Date: 03/26/2025 15:49 Dictated By: Bill Jade M.D. Signed By: 03/26/25 1557 DD/ 1549 TD/TT: Paint Prep Technician: [facility] Radiology Study observation (narrative) [facility] US RENAL BIOrdered By: Spiralcat logist Radiology on 03-26-2025 [facility] [employer] Work Phone: XR ABDOMEN 1Von 03-26-[address] [address] XRay Report Signed Patient: SD CARDOZO MR#: [id number] : 1960 Acct:[id number] Age/Sex: 64 / M ADM Date: 03/26/25 Loc: US Attending Dr: Rafaela REYES Ordering Physician: Rafaela Vance Date of Service: 03/26/25 Procedure(s): XR abdomen 1V Accession Number(s): [id number] cc: ALEJANDRO UMAÑA ; Rafaela Vance [address] [address] Patient Name: SD CARDOZO MRN: [id number] date: 1960 Sex: M Assigned Patient Location: US Current Patient Location: US Accession/Order Number: [id number] Exam Date: 03/26/2025 14:20 Report Date: 03/26/2025 15:51 At the request of: RAFAELA REYES Procedure: XR abdomen 1V KUB INDICATION: Kidney stone, right-sided flank pain COMPARISON: Ultrasound 03/26/2025 FINDINGS: Tlbu-ah-axfufnns stool burden. Nonspecific nonspecific bowel gas pattern. No radiopaque calcifications overlying the renal shadows or the psoas muscles. Osseous structures are noncontributory. XR/XR abdomen 1V IMPRESSION: No radiopaque calculi identified. Impression dictated by: Bill Jade M.D. 03/26/2025 3:51 PM Dictation Location: [place] [address] Electronically authenticated by: [id number] Y Date: 03/26/2025 15:51 Dictated By: Bill Jade M.D. Signed By: 03/26/25 1553 DD/ 155 TD/TT: Paint Prep Technician: [facility] Radiology, Radiologist, MD - 03/26/2025 [place] [address] XRay Report Signed Patient: SD CARDOZO MR#: [id number] : 1960 Acct:[id number] Age/Sex: 64 / M ADM Date: 03/26/25 Loc: Attending Dr: Rafaela REYES Ordering Physician: Rafaela Vance Date of Service: 03/26/25 Procedure(s): XR abdomen 1V Accession Number(s): [id number] cc: ALEJANDRO UMAÑA ; Rafaela Vance [address] [address] Patient Name: SD CARDOZO MRN: [facility]:[id number] date: 1960 Sex: M Assigned Patient Location: US Current Patient Location: US Accession/Order Number: [id number] Exam Date: 03/26/2025 14:20 Report Date: 03/26/2025 15:51 At the request of: RAFAELA REYES Procedure: XR abdomen 1V KUB INDICATION: Kidney stone, right-sided flank pain COMPARISON: Ultrasound 03/26/2025 FINDINGS: Ibfi-xf-bncmjxxp stool burden. Nonspecific nonspecific bowel gas pattern. No radiopaque calcifications overlying the renal shadows or the psoas muscles. Osseous structures are noncontributory. XR/XR abdomen 1V IMPRESSION: No radiopaque calculi identified. Impression dictated by: Bill Jade M.D. 03/26/2025 3:51 PM Dictation Location: [place] [address] Electronically authenticated by: [id number] Y Date: 03/26/2025 15:51 Dictated By: Bill Jade M.D. Signed By: 03/26/251552 DD/ 50 TD/TT: Paint Prep Technician: [facility] Radiology Study observation (narrative) [facility] [employer] XR ABDOMEN 1VOrdered By: Jamal iologwilliam Radiology on 03-26-2025 [facility] [employer] Work Phone: CBC WITH AUTO DIFFERENTIALon 01-27-2025 BASOPHILS ABSOLUTE COUNT (10*3/UL) BY AUTOMATED COUNT 0.1 10*3/uL Normal 0.0-0.2 [facility] Comment on above: Performed By: #### C BCA #### [facility] ([facility]) [address] [place] [address] VIR BASOPHILS RELATIVE PERCENT BY AUTOMATED COUNT 1.0 % Normal [facility] Comment on above: Performed By: #### C BCA #### [facility] ([facility]) [address] [place] [address] VIR CELLAVISION DIFFERENTIAL TYPE AUTOMATED DIFFERENTIAL Normal [facility] Comment on above: Performed By: #### C BCA #### [facility] ([facility]) [address] [place] [address] VIR Eosinophils (Bld) [#/Vol] 0.2 10*3/uL Normal 0.0-0.4 [facility] Comment on above: Performed By: #### C BCA #### [facility] ([facility]) [address] [place] [address] VIR EOSINOPHILS RELATIVE PERCENT BY AUTOMATED COUNT 2.6 % Normal [facility] Comment on above: Performed By: #### C BCA #### [facility] ([facility]) [address] [place] [address] VIR Erythrocyte distribution width (RBC) [Ratio] 13.1 % Normal 11.5-15 [facility] Comment on above: Performed By: #### C BCA #### [facility] ([facility]) [address] [place] [address] VIR Hematocrit (Bld) [Volume fraction] 41.3 % Normal 39-50 [facility] Comment on above: Performed By: #### C BCA #### [facility] ([facility]) [address] [place] [address] VIR Hemoglobin (Bld) [Mass/Vol] 13.9 g/dL Normal 13-17 [facility] Comment on above: Performed By: #### C BCA #### [facility] ([facility]) [address] [place] [address] VIR LYMPHOCYTES ABSOLUTE COUNT (10*3/UL) BY AUTOMATED COUNT 1.6 10*3/uL Normal 1.0-3.5 [facility] Comment on above: Performed By: #### C BCA #### [facility] ([facility]) [address] [place] [address] VIR LYMPHOCYTES RELATIVE PERCENT BY AUTOMATED COUNT 19.0 % Normal [facility] Comment on above: Performed By: #### C BCA #### [facility] ([facility]) [address] [place] [address] VIR MCH (RBC) [Entitic mass] 30.8 pg Normal 27-34 [facility] Comment on above: Performed By: #### C BCA #### [facility] ([facility]) [address] [place] [address] VIR MCHC (RBC) [Mass/Vol] 33.7 g/dL Normal 32-36 [facility] Comment on above: Performed By: #### C BCA #### [facility] ([facility]) [address] [place] [address] VIR MCV (RBC) [Entitic vol] 91 fL Normal 80-100 [facility] Comment on above: Performed By: #### C BCA #### [facility] ([facility]) [address] [place] [address] VIR MONOCYTES ABSOLUTE COUNT (10*3/UL) BY AUTOMATED COUNT 0.6 10*3/uL Normal 0.0-0.9 [facility] Comment on above: Performed By: #### C BCA #### [facility] ([facility]) [address] [place] [address] VIR MONOCYTES RELATIVE PERCENT BY AUTOMATED COUNT 7.2 % Normal [facility] Comment on above: Performed By: #### C BCA #### [facility] ([facility]) [address] [place] [address] VIR NEUTROPHILS ABSOLUTE COUNT BY AUTOMATED COUNT 6.0 10*3/uL Normal 1.5-6.6 [facility] Comment on above: Performed By: #### C BCA #### [facility] ([facility]) [address] [place] [address] VIR NEUTROPHILS RELATIVE PERCENT BY AUTOMATED COUNT 70.2 % Normal [facility] Comment on above: Performed By: #### C BCA #### [facility] ([facility]) [address] [place] [address] VIR Platelet mean volume (Bld) [Entitic vol] 8.8 fL Normal 7-12 [facility] Comment on above: Performed By: #### C BCA #### [facility] ([facility]) [address] [place] [address] VIR Platelets (Bld) [#/Vol] 189 10*3/uL Normal 150-450 [facility] Comment on above: Performed By: #### C BCA #### [facility] ([facility]) [address] [place] [address] VIR RBC COUNT 4.52 X10E12/L Normal 4.1-5.7 [facility] Comment on above: Performed By: #### C BCA #### [facility] ([facility]) [address] [place] [address] VIR WBC (Bld) [#/Vol] 8.5 10*3/uL Normal 4-11 [facility] [facility] Comment on above: Performed By: #### C BCA #### [facility] ([facility]) [address] [place] [address] VIR COMPREHENSIVE METABOLIC PANE Shant 01-27-2025 Albumin [Mass/Vol] 4.2 g/dL Normal 3.2-5.3 [facility] Comment on above: Performed By: #### C MP #### [facility] ([facility]) [address] [place] [address] VIR ALP [Catalytic activity/Vol] 86 U/L Normal 39-130 [facility] Comment on above: Performed By: #### C MP #### [facility] ([facility]) [address] [place] [address] VIR ALT [Catalytic activity/Vol] 27 U/L Normal <=40 [facility] Comment on above: Performed By: #### C MP #### [facility] ([facility]) [address] [place] [address] VIR Anion gap [Moles/Vol] 10 mmol/L Normal 5-15 [facility] Comment on above: Performed By: #### C MP #### [facility] ([facility]) [address] [place] [address] VIR AST [Catalytic activity/Vol] 22 U/L Normal <=41 [facility] Comment on above: Performed By: #### C MP #### [facility] ([facility]) [address] [place] [address] VIR Bilirubin [Mass/Vol] 0.4 mg/dL Normal 0.3-1.2 [facility] Comment on above: Performed By: #### C MP #### [facility] ([facility]) [address] [place] [address] VIR Calcium [Mass/Vol] 9.3 mg/dL Normal 8.5-10.5 [facility] Comment on above: Performed By: #### C MP #### [facility] ([facility]) [address] [place] [address] VIR Chloride [Moles/Vol] 101 mmol/L Normal 98-109 [facility] Comment on above: Performed By: #### C MP #### [facility] ([facility]) [address] [place] [address] VIR CO2 [Moles/Vol] 29 mmol/L Normal 22-32 [facility] Comment on above: Performed By: #### C MP #### [facility] ([facility]) [address] [place] [address] VIR Creatinine [Mass/Vol] 0.96 mg/dL Normal 0.60-1.30 [facility] Comment on above: Result Comment: METH OD TRACEABLE TO IDMS STANDARD Performed By: #### C MP #### [facility] ([facility]) [address] [place] [address] VIR GFR/1.73 sq M.predicted among non-blacks MDRD (S/P/Bld) [Vol rate/Area] 89 mL/min/{1.73_m2} Normal >=60 [facility] Comment on above: Result Comment: Repo rted eGFR is based on the CKD-EPI 2020 equation that does not use a race coefficient. Performed By: #### C MP #### [facility] ([facility]) [address] [place] [address] VIR Glucose [Mass/Vol] 177 mg/dL High 65-99 [facility] Comment on above: Performed By: #### C MP #### [facility] ([facility]) [address] [place] [address] VIR Potassium [Moles/Vol] 4.7 mmol/L Normal 3.5-5.0 [facility] Comment on above: Performed By: #### C MP #### [facility] ([facility]) [address] [place] [address] VIR Protein [Mass/Vol] 7.0 g/dL Normal 6.0-8.0 [facility] Comment on above: Performed By: #### C MP #### [facility] ([facility]) [address] [place] [address] VIR Sodium [Moles/Vol] 140 mmol/L Normal 134-146 [facility] Comment on above: Performed By: #### C MP #### [facility] ([facility]) [address] [place] [address] VIR Urea nitrogen [Mass/Vol] 18 mg/dL Normal 5-27 [facility] Comment on above: Performed By: #### C MP #### [facility] ([facility]) [address] [place] [address] VIR FERRITINon 01-27-2025 Ferritin [Mass/Vol] 107 ng/mL Normal 24-336 [facility] Comment on above: Performed By: #### F ERR #### [facility] ([facility]) [address] [place] [address] VIR HEMOGLOBIN A1Con 01-27-2025 Glucose [Mass/Vol] 151 mg/dL Normal [facility] Comment on above: Performed By: #### H A1C #### [facility] ([facility]) [address] [place] [address] VIR HbA1c (Bld) [Mass fraction] 6.9 % High 4.4-5.6 [facility] Comment on above: Result Comment: ADA Guidelines Result HgbA1c Normal : less than 5.7 % Prediabetes : 5.7 % to 6.4 % Diabetes : > 6.4 % Use with caution in patients with abnormal hemoglobin variants as the half-life of red blood cells and in vivo glycation rates are affected. Performed By: #### H A1C #### [facility] ([facility]) [address] [place] [address] VIR LIPID PROFILEon 01-27-2025 Cholesterol [Mass/Vol] 143 mg/dL Low 150-200 [facility]PG Comment on above: Performed By: #### L IPR #### [facility] ([facility]) [address] [place] [address] VIR Cholesterol in HDL [Mass/Vol] 69 mg/dL Normal >39 [facility] Comment on above: Result Comment: HDL <40 mg/dL - High Risk HDL > or = 40mg/dL- Desirable HDL >60 mg/dL - Negative Risk Performed By: #### L IPR #### [facility] ([facility]) [address] [place] [address] VIR Cholesterol in LDL [Mass/Vol] 60 mg/dL Normal <130 [facility] Comment on above: Result Comment: LDL <100 mg/dL - Desirable LDL >160 mg/dL - High Risk Performed By: #### L IPR #### [facility] ([facility]) [address] [place] [address] VIR CHOLESTEROL:HDL 2.1 Normal 1.0-5.0 [facility] Comment on above: Performed By: #### L IPR #### [facility] ([facility]) [address] [place] [address] VIR Triglyceride [Mass/Vol] 69 mg/dL Normal 27-150 [facility] Comment on above: Performed By: #### L IPR #### [facility] ([facility]) [address] [place] [address] VIR VERY LOW LIPOPROTEIN 14 mg/dL Normal 0-30 [facility] Comment on above: Performed By: #### L IPR #### [facility] ([facility]) [address] [place] [address] VIR MAGNESIUMon 01-27-2025 Magnesium [Mass/Vol] 1.9 mg/dL Normal 1.8-2.6 [facility] Comment on above: Performed By: #### M G #### [facility] ([facility]) [address] [place] [address] VIR MICROALBUMIN / CREATININE UR INE RATIOon 01-27-2025 MICROALBUMIN / CREATININE URINE RATIO MALBU MICROALBUMIN / CREATININE URINE RATIO Cancelled Normal [facility] PPG PROSTATIC SPECIFIC ANTIGEN S CREENon 01-27-2025 PROSTATIC SPEC ANT 3.11 ng/mL Normal 0.00-4.00 [facility] PPG Comment on above: Result Comment: The method used for this test is [employer] DXI chemiluminescent immunoassay. Values obtained by different assay methods cannot be used interchangeably. Performed By: #### P SAS #### [facility] ([facility]) [address] [place] [address] VIR XR CHEST 2 VWSon 01-27-2025 XR CHEST 2 VWS XR CHEST 2 VWS STUDY: XR CHEST 2 VWS INDICATION: Recurrent productive cough. COMPARISON: None FINDINGS/IMPRESSION: * No acute cardiopulmonary process, by radiograph. * Prominent retrosternal clear space. Correlate with symptoms of COPD. Finalized by Samson Brown on 01/27/2025 3:13 PM Normal [facility] XR Chest PA and Lateralon [...] by Samson Brown on 01/27/2025 3:13 PM [email or web address] Radiology Study observation (narrative) [email or web address] XR Chest PA and LateralOrder ed By: Samson Brown on 01-27-2025 [email or web address] Work Phone: Urology Office/Clinic Noteon 01-24-2025 Urology [...] hx of prostate cancer. Prostate MRI 10/03/23 [facility] [place] Neg. Prostate volume 31 mL. NEO [...] Contact Information ANGELIQUE LUNDBERG, Kim Mcgowan, URL [address] [place] [address] [place] [address] Additional Instructions: 6 mos w/ PSA Patient Education Prostate Cancer Screening I, Joselin Sesay, personally scribed for Dr. Ortiz on 01/24/2025 [...] Protein Urine Dipstick: Negative (01/24/25 13:31:00) Specific [place] Urine Dipstick: <=1.005 (01/24/25 13:31:00) Urine Appearance Urine Dipstick: Clear (01/24/25 13:31:00) Urine Color Urine Dipstick: Light yellow (01/24/25 13:31:00) Urobilinogen Urine Dipstick: Normal 0.2-1 EU/dl (01/24/25 13:31:00) pH Urine Dipstick: 6 (01/24/25 13:31:00) [1] URO- 3 mos PSA; Kim ORTIZ MD 12/22/2023 15:26 EDT Normal [facility] Comment on above: Result Comment: Elec tronically [...] any other population of men. Performed at: - [address] [id number] Information Assoc: Steve Ramirez PhD, Phone: [phone] Prostate specific Ag [Mass/Vol] 3.1 ng/mL 0.0 - 4.0 ng/mL [facility] Comment on above: Fer ECLIA methodol ogy. According to the [place] [employer], Serum PSA should decrease and [...] malignant disease. PSA, FREE 0.53 ng/mL N/A [facility] Audiam e Comment on above: Fer ECLIA methodol ogy. [facility] e POCT Hemoglobin A1con 2024 ADA Target < 8 Yes [facility] HbA1c (Bld) [Mass fraction] 6.8 % 4 - 7 % [facility] POCT Hemoglobin A1con 2024 ADA Target < 8 Yes [facility] HbA1c (Bld) [Mass fraction] 6.8 % 4 - 7 % [facility] CBC AND AUTO DIFFon 04-23-20 24 ABSOLUTE BASOPHIL 0.1 X10E9/L Normal 0.0-0.2 [facility] Comment on above: Performed By: #### 2 857-1, CBCA, HA1C, 39324-3, CMP, TSHR #### [facility] ([id number]) [address], [address] [place] [address] ABSOLUTE NEUTROPHIL 4.4 X10E9/L Normal 1.5-6.6 [facility] Comment on above: Performed By: #### 2 857-1, CBCA, HA1C, 69231-7, CMP, TSHR #### [facility] ([id number]) [address], [address] [place] [address] Basophils/100 WBC (Bld) 0.9 % Normal [facility] Comment on above: Performed By: #### 2 857-1, CBCA, HA1C, 79427-2, CMP, TSHR #### [facility] ([id number]) [address], [facility] [address] [place] [address] Eosinophils (Bld) [#/Vol] 0.3 10*3/uL Normal 0.0-0.4 [facility] Comment on above: Performed By: #### 2 857-1, CBCA, HA1C, 91282-2, CMP, TSHR #### [facility] ([id number]) [address], [address] [place] [address] Eosinophils/100 WBC (Bld) 3.7 % Normal [facility] Comment on above: Performed By: #### 2 857-1, CBCA, HA1C, 95158-7, CMP, TSHR #### [facility] ([id number]) [address], [facility] [address] [place] [address] Erythrocyte distribution width (RBC) [Ratio] 13.3 % Normal 11.5-15.0 [facility] Comment on above: Performed By: #### 2 857-1, CBCA, HA1C, 73317-6, CMP, TSHR #### [facility] ([id number]) [address], [facility] [address] [place] [address] Hematocrit (Bld) [Volume fraction] 41.3 % Normal 39-49 [facility] Comment on above: Performed By: #### 2 857-1, CBCA, HA1C, 99017-7, CMP, TSHR #### [facility] ([id number]) [address] [address] [place] [address] Hemoglobin (Bld) [Mass/Vol] 14.3 g/dL Normal 13.0-17.0 [facility] Comment on above: Performed By: #### 2 857-1, CBCA, HA1C, 84906-8, CMP, TSHR #### [facility] ([id number]) [address], [address] [address] Lymphocytes (Bld) [#/Vol] 1.7 10*3/uL Normal 1.0-3.5 [facility] Comment on above: Performed By: #### 2 857-1, CBCA, HA1C, 09778-3, CMP, TSHR #### [facility] ([id number]) [address] [address] Lymphocytes/100 WBC (Bld) 24.3 % Normal [facility] Comment on above: Performed By: #### 2 857-1, CBCA, HA1C, 08370-5, CMP, TSHR #### [facility] ([id number]) [address] [address] MCH (RBC) [Entitic mass] 32.0 pg Normal 27-34 [facility] Comment on above: Performed By: #### 2 857-1, CBCA, HA1C, 09902-1, CMP, TSHR #### [facility] ([id number]) [address] [address] MCHC (RBC) [Mass/Vol] 34.6 g/dL Normal 32-36 [facility] Comment on above: Performed By: #### 2 857-1, CBCA, HA1C, 20505-5, CMP, TSHR #### [facility] ([id number]) [address] [address] [place] [address] MCV (RBC) [Entitic vol] 93 fL Normal 80-100 [facility] Comment on above: Performed By: #### 2 857-1, CBCA, HA1C, 20839-4, CMP, TSHR #### [facility] ([id number]) [address], [address] [place] [address] Monocytes (Bld) [#/Vol] 0.6 10*3/uL Normal 0-0.9 [facility] Comment on above: Performed By: #### 2 857-1, CBCA, HA1C, 37134-5, CMP, TSHR #### [facility] ([id number]) [address], [facility] [address] [place] [address] Monocytes/100 WBC (Bld) 8.9 % Normal [facility] Comment on above: Performed By: #### 2 857-1, CBCA, HA1C, 14689-6, CMP, TSHR #### [facility] ([id number]) [address], [facility] [address] [place] [address] Neutrophils/100 WBC (Bld) 62.2 % Normal [facility] Comment on above: Performed By: #### 2 857-1, CBCA, HA1C, 47553-9, CMP, TSHR #### [facility] ([id number]) [address], [address] [place] [address] Platelet mean volume (Bld) [Entitic vol] 9.0 fL Normal 7-12 [facility] Comment on above: Performed By: #### 2 857-1, CBCA, HA1C, 96337-5, CMP, TSHR #### [facility] ([id number]) [address], [facility] [address] [place] [address] Platelets (Bld) [#/Vol] 164 10*3/uL Normal 150-450 [facility] Comment on above: Performed By: #### 2 857-1, CBCA, HA1C, 03493-0, CMP, TSHR #### [facility] ([id number]) [address], [address] [place] [address] RBC COUNT 4.46 X10E12/L Normal 4.10-5.70 [facility] Comment on above: Performed By: #### 2 857-1, CBCA, HA1C, 82709-5, CMP, TSHR #### [facility] ([id number]) [address], [address] [place] [address] WBC (Bld) [#/Vol] 7.1 10*3/uL Normal 4.0-11.0 [facility] Comment on above: Performed By: #### 2 857-1, CBCA, HA1C, 46912-5, CMP, TSHR #### [facility] ([id number]) [address], [address] [place] [address] COMPREHENSIVE METABOLIC PANE Shant 04-23-2024 Albumin [Mass/Vol] 4.3 g/dL Normal 3.2-5.3 [facility] Comment on above: Performed By: #### C BCA, CMP, 56795-1, 93977-9, TSHR, 73398-2 #### [facility] ([id number]) [address], [address] [place] [address] ALP [Catalytic activity/Vol] 101 U/L Normal 39-130 [facility] Comment on above: Performed By: #### C BCA, CMP, 72892-9, 93446-5, TSHR, 24160-1 #### [facility] ([id number]) [address], [address] [place] [address] ALT [Catalytic activity/Vol] 25 U/L Normal 0-40 [facility] Comment on above: Performed By: #### C BCA, CMP, 43822-3, 23542-0, TSHR, 92787-0 #### [facility] ([id number]) [address], [address] [place] [address] Anion gap [Moles/Vol] 3 mmol/L Low 5-15 [facility] Comment on above: Performed By: #### C BCA, CMP, 97903-3, 40777-4, TSHR, 40585-2 #### [facility] ([id number]) [address], [address] [place] [address] AST [Catalytic activity/Vol] 25 U/L Normal 0-41 [facility] Comment on above: Performed By: #### C BCA, CMP, 14729-2, 53999-5, TSHR, 37880-4 #### [facility] ([id number]) [address] [place] [address] Bilirubin [Mass/Vol] 0.4 mg/dL Normal 0.3-1.2 [facility] Comment on above: Performed By: #### C BCA, CMP, 09808-6, , TSHR, 20893-4 #### [facility] ([id number]) [address], [address] [place] [address] Calcium [Mass/Vol] 9.6 mg/dL Normal 8.5-10.5 [facility] Comment on above: Performed By: #### C BCA, CMP, 31391-3, , TSHR, 64358-4 #### [facility] ([id number]) [address], [address] [place] [address] Chloride [Moles/Vol] 101 mmol/L Normal 98-109 [facility] Comment on above: Performed By: #### C BCA, CMP, 53240-0, , TSHR, 18509-4 #### [facility] ([id number]) [address], [address] [place] [address] CO2 [Moles/Vol] 34 mmol/L High 22-32 [facility] Comment on above: Performed By: #### C BCA, CMP, 51203-6, 47064-9, TSHR, 44449-0 #### [facility] ([id number]) [address] [address] [place] [address] Creatinine [Mass/Vol] 0.93 mg/dL Normal 0.60-1.30 [facility] Comment on above: Result Comment: METH OD TRACEABLE TO IDMS STANDARD Performed By: #### C BCA, CMP, 18299-1, , TSHR, 01771-8 #### [facility] ([id number]) [address], [facility] [address] [place] [address] eGFR (CKD-EPI) NON-RACE DEPENDENT >90 Normal >59 [facility] Comment on above: Result Comment: Reported eGFR is based on the CKD-EPI 2020 equation that does not use a race coefficient. Performed By: #### C BCA, CMP, 50494-8, , TSHR, 59636-4 #### [facility] ([id number]) [address], [address] [place] [address] Glucose [Mass/Vol] 276 mg/dL High 65-99 [facility] Comment on above: Performed By: #### C BCA, CMP, , , TSHR, 25803-6 #### [facility] ([id number]) [address] [address] [place] [address] Potassium [Moles/Vol] 4.9 mmol/L Normal 3.5-5.0 [facility] Comment on above: Performed By: #### C BCA, CMP, 77927-1, 79470-7, TSHR, 96733-0 #### [facility] ([id number]) [address] [address] [place] [address] Protein [Mass/Vol] 7.4 g/dL Normal 6.0-8.0 [facility] Comment on above: Performed By: #### C BCA, CMP, 58265-7, 43900-4, TSHR, 94433-4 #### [facility] ([id number]) [address] [place] [address] Sodium [Moles/Vol] 138 mmol/L Normal 134-146 [facility] Comment on above: Performed By: #### C BCA, CMP, 34526-6, 54347-9, TSHR, 44038-1 #### [facility] ([id number]) [address] [place] [address] Urea nitrogen [Mass/Vol] 18 mg/dL Normal 5-27 [facility] Comment on above: Performed By: #### C BCA, CMP, 11058-7, , TSHR, 93837-2 #### [facility] ([id number]) [address] [place] [address] EBV DNA ASHLYN+probe Qnon 04-23 Lipoprotein a [Moles/Vol] 23 nmol/L Normal <75 [facility] Comment on above: Result Comment: NOTE [...] considered a risk enhancing factor by the [employer] [employer]. This test has been modified from the hatchery supervisor's instructions. Its performance characteristics were determined by [facility] in a manner consistent with CLIA requirements. This test has not been cleared or approved by the U.S. Food and Drug Administration. Test Performed by: [address] [address] Information Assoc: Hipolito Montano Ph.D.; CLIA# [id number] Performed By: #### C BCA, CMP, 12481-1, 21408-2, TSHR, 00876-1 #### [facility] ([id number]) [address] [place] [address] HGB A1C (GLYCO-HGB)on 2023 Glucose [Mass/Vol] 143 mg/dL Normal [facility] Comment on above: Performed By: #### C BCA, CMP, 65214-6, 63373-3, TSHR, 50411-8 #### [facility] ([id number]) [address], [address] [place] [address] HbA1c (Bld) [Mass fraction] 6.6 % High 4.4-5.6 [facility] Comment on above: Result Comment: NOTE ADA Guidelines Result HgbA1c Normal : less than 5.7 % Prediabetes : 5.7 % to 6.4 % Diabetes : > 6.4 % Use with caution in patients with abnormal hemoglobin variants as the half-life of red blood cells and in vivo glycation rates are affected. Performed By: #### C BCA, CMP, 66660-1, , TSHR, 25819-3 #### [facility] ([id number]) [address], [address] [place] [address] Lipid 1996 panelon Cholesterol [Mass/Vol] 140 mg/dL Low 150-200 [facility] Comment on above: Performed By: #### C BCA, CMP, 75595-6, 10137-4, TSHR, 67633-2 #### [facility] ([id number]) [address], [address] [address] Cholesterol in HDL [Mass/Vol] 67 mg/dL Normal >39 [facility] Comment on above: Result Comment: HDL <40 mg/dL - High Risk HDL > or = 40mg/dL- Desirable HDL >60 mg/dL - Negative Risk Performed By: #### C BCA, CMP, 86297-6, 77165-3, TSHR, 34491-9 #### [facility] ([id number]) [address], [address] [place] [address] Cholesterol in LDL [Mass/Vol] 65 mg/dL Normal <130 [facility] Comment on above: Result Comment: LDL <100 mg/dL - Desirable LDL >160 mg/dL - High Risk Performed By: #### C BCA, CMP, 91330-7, 66861-1, TSHR, 15768-4 #### [facility] ([id number]) [address], [address] [place] [address] Cholesterol in VLDL [Mass/Vol] 8 mg/dL Normal 0-30 [facility] Comment on above: Performed By: #### C BCA, CMP, 68780-1, 46652-9, TSHR, 32211-0 #### [facility] ([id number]) [address], [address] [place] [address] CHOLESTEROL:HDL 2.1 Normal 1.0-5.0 [facility] Comment on above: Performed By: #### C BCA, CMP, 17256-7, 42793-5, TSHR, 37375-8 #### [facility] ([id number]) [address], [address] [place] [address] Triglyceride [Mass/Vol] 38 mg/dL Normal 27-150 [facility] Comment on above: Performed By: #### C BCA, CMP, 34448-4, 73341-6, TSHR, 95618-7 #### [facility] ([id number]) [address] [place] [address] MICROALBUMIN - ALBUMIN:CREAT ININE URINE RATIOon 04-23-2024 ALB/CREAT RATIO NOT CALCULATED Normal 0.0-30.0 [facility] Comment on above: Result Comment: Result for Albumin/Creatinine Ratio cannot be reliably calculated because urine albumin and or urine creatinine is below the detection limit of the assay. Performed By: #### C BCA, CMP, 30380-9, , TSHR, 05364-1 #### [facility] ([id number]) [address], [address] [place] [address] Albumin DL <= 20 mg/L (U) [Mass/Vol] mg/dL Normal 0.0-1.9 [facility] Comment on above: Performed By: #### C BCA, CMP, 08392-2, , TSHR, 07079-5 #### [facility] ([id number]) [address], [address] [place] [address] URINE CREAT 50.83 mg/dL Normal [facility] Comment on above: Performed By: #### C BCA, CMP, 08403-9, , TSHR, 40395-8 #### [facility] ([id number]) [address], [address] [place] [address] POCT Glucose Fingerstickon 1 06-23-2023 Glucose [Mass/Vol] 299 mg/dL Abnormal 65 - 99 mg/dL [facility] Interpretation and review of laboratory results Abnormal [facility] Prostate specific Ag [Mass/V ol]on 04-23-2024 PROSTATIC SPEC ANT 2.89 ng/mL Normal 0.00-4.00 [facility] Comment on above: Result Comment: The method used for this test is Shelbi Danica DXI chemiluminescent immunoassay. Values obtained by different assay methods cannot be used interchangeably. Performed By: #### 2 857-1, CBCA, HA1C, 54871-4, CMP, TSHR #### [facility] ([id number]) [address], [address] [place] [address] TSH WITH REFLEXon 04-23-2024 TSH 1.27 uIU/mL Normal 0.49-4.67 [facility] Comment on above: Performed By: #### C BCA, CMP, 46527-8, 83239-9, TSHR, 21953-3 #### [facility] ([id number]) [address], [address] [place] [address] POCT Hemoglobin A1con 2023 ADA Target < 8 Yes [facility] HbA1c (Bld) [Mass fraction] 7.2 g/dL Abnormal 4 - 7 g/dL [facility] Interpretation and review of laboratory results Abnormal [facility] CT HEAD WO CONTRASTon 2023 CT HEAD [...] Dane Zuñiga MD 12/17/23 Final result Normal [facility] CT Head WO contraston [address] of the brain. [facility] EXAMINATION: CT OF THE HEAD WITHOUT [...] lytic or blastic osseous lesions are identified. [facility] Dane Zuñiga MD - 12/17/2023 EXAMINATION: [...] identified. IMPRESSION: Normal CT of the brain. [facility] CT Head WO contrastOrdered B y: Dane Zuñiga on 12-17-2023 [facility] Work Phone: CT Head WO contraston 2023 Radiology Study observation (narrative) [facility] POCT Hemoglobin A1con 2023 ADA Target < 8 Yes [email or web address] HbA1c (Bld) [Mass fraction] 7.9 g/dL Abnormal 4 - 7 g/dL [email or web address] Interpretation and review of laboratory results Abnormal [facility] MR prostate wo/w conon 10-06 MR prostate wo/w con [facility] Main [place] [address] [place] [address] MRI Report Signed Patient: Sd Cardozo MR#: [id number] 68 : 1960 Acct:[id number] Age/Sex: 63 / M ADM Date: 10/03/23 Loc: MR Room: Type: [facility] Attending Dr: Kim Ortiz MD Copies [...] Jurado Jr., D.OTian10/07/2023 9:12 AM Dictation Location: [place] [address] Transcribed By: [facility] 10/07/23911 Dictated By: Tc Jurado Jr, DO 10/07/23908 Signed By: 10/07/23911 Normal [facility] Creatinine (Bld) [Mass/Vol]O rdered By: Kim Ortiz on 10-03-2023 Creatinine [Mass/Vol] 0.9 mg/dL 0.6-1.3 [facility] Comment on above: ER/ESD physician is notified/shown all ISTAT results.Critical values may be confirmed by laboratory testing ifdeemed necessary by ER attending doctor. ISTAT XRay CREon 10-03-2023 Creatinine [Mass/Vol] 0.9 mg/dL Normal 0.6-1.3 [facility] Comment on above: Result Comment: ER/E SD physician is notified/shown all ISTAT results. Critical values may be confirmed by laboratory testing if deemed necessary by ER attending doctor. Performed By: #### I SCRE #### [facility] [address] [place] [address] ISTAT GFR > 60.0 Normal [facility] Comment on above: Result Comment: PERF ORMED BY: [place] [address] PATHOLOGIST [employer] JADA SHAHID M.D. Performed By: #### I SCRE #### [facility] [address] [place] [address] No Panel InformationOrdered By: Kim Ortiz on 10-03-2023 Bedside Estimated GFR (eGFR) > 60.0 [facility] POCT Hemoglobin A1con 2023 HbA1c (Bld) [Mass fraction] 6.8 g/dL 4 - 7 g/dL [facility] [employer] [facility] CBC AND AUTO DIFFon 06-06-20 ABSOLUTE BASOPHIL 0.1 X10E9/L Normal 0.0-0.2 [facility] Comment on above: Performed By: #### C BCA, CMP, 76982-8, 96111-7, TSHR, 66308-9 #### [facility] ([id number]) [address], [address] [place] [address] ABSOLUTE NEUTROPHIL 4.2 X10E9/L Normal 1.5-6.6 [facility] Comment on above: Performed By: #### C BCA, CMP, 32027-2, , TSHR, 12018-4 #### [facility] ([id number]) [address], [address] [place] [address] Basophils/100 WBC (Bld) 1.1 % Normal [facility] Comment on above: Performed By: #### C BCA, CMP, , , TSHR, 29811-5 #### [facility] ([id number]) [address], [address] [place] [address] Eosinophils (Bld) [#/Vol] 0.2 10*3/uL Normal 0.0-0.4 [facility] Comment on above: Performed By: #### C BCA, CMP, , , TSHR, 21884-2 #### [facility] ([id number]) [address], [address] [place] [address] Eosinophils/100 WBC (Bld) 3.0 % Normal [facility] Comment on above: Performed By: #### C BCA, CMP, 22882-5, , TSHR, 66224-8 #### [facility] ([id number]) [address], [address] [place] [address] Erythrocyte distribution width (RBC) [Ratio] 12.9 % Normal 11.5-15.0 [facility] Comment on above: Performed By: #### C BCA, CMP, 70817-1, , TSHR, 56730-9 #### [facility] ([id number]) [address], [address] [place] [address] Hematocrit (Bld) [Volume fraction] 41.5 % Normal 39-49 [facility] Comment on above: Performed By: #### C BCA, CMP, 59035-4, , TSHR, 13560-5 #### [facility] ([id number]) [address], [address] [place] [address] Hemoglobin (Bld) [Mass/Vol] 14.2 g/dL Normal 13.0-17.0 [facility] Comment on above: Performed By: #### C BCA, CMP, 57652-1, , TSHR, 39004-0 #### [facility] ([id number]) [address], [facility] [address] [place] [address] Lymphocytes (Bld) [#/Vol] 1.9 10*3/uL Normal 1.0-3.5 [facility] Comment on above: Performed By: #### C BCA, CMP, , , TSHR, 08729-1 #### [facility] ([id number]) [address], [address] [place] [address] Lymphocytes/100 WBC (Bld) 26.8 % Normal [facility] Comment on above: Performed By: #### C BCA, CMP, 02203-4, , TSHR, 95122-5 #### [facility] ([id number]) [address], [address] [place] [address] MCH (RBC) [Entitic mass] 31.0 pg Normal 27-34 [facility] Comment on above: Performed By: #### C BCA, CMP, 64811-1, , TSHR, 91152-3 #### [facility] ([id number]) [address], [address] [place] [address] MCHC (RBC) [Mass/Vol] 34.2 g/dL Normal 32-36 [facility] Comment on above: Performed By: #### C BCA, CMP, 14785-9, 46803-3, TSHR, 24276-8 #### [facility] ([id number]) [address], [address] [place] [address] MCV (RBC) [Entitic vol] 91 fL Normal 80-100 [facility] Comment on above: Performed By: #### C BCA, CMP, 06343-6, 11973-6, TSHR, 32522-4 #### [facility] ([id number]) [address], [address] [place] [address] Monocytes (Bld) [#/Vol] 0.6 10*3/uL Normal 0-0.9 [facility] Comment on above: Performed By: #### C BCA, CMP, 58330-9, 46793-4, TSHR, 25547-7 #### [facility] ([id number]) [address], [address] [place] [address] Monocytes/100 WBC (Bld) 9.2 % Normal [facility] Comment on above: Performed By: #### C BCA, CMP, 92243-5, , TSHR, 00664-6 #### [facility] ([id number]) [address], [address] [place] [address] Neutrophils/100 WBC (Bld) 59.9 % Normal [facility] Comment on above: Performed By: #### C BCA, CMP, 31281-9, , TSHR, 75398-1 #### [facility] ([id number]) [address], [address] [place] [address] Platelet mean volume (Bld) [Entitic vol] 8.7 fL Normal 7-12 [facility] Comment on above: Performed By: #### C BCA, CMP, 05692-8, 60191-1, TSHR, 49102-7 #### [facility] ([id number]) [address], [address] [place] [address] Platelets (Bld) [#/Vol] 194 10*3/uL Normal 150-450 [facility] Comment on above: Performed By: #### C BCA, CMP, 30298-9, 90300-2, TSHR, 69954-5 #### [facility] ([id number]) [address], [address] [place] [address] RBC COUNT 4.58 X10E12/L Normal 4.10-5.70 [facility] Comment on above: Performed By: #### C BCA, CMP, 46524-5, , TSHR, 53410-6 #### [facility] ([id number]) [address] [address] [place] [address] WBC (Bld) [#/Vol] 6.9 10*3/uL Normal 4.0-11.0 [facility] Comment on above: Performed By: #### C BCA, CMP, 29651-2, , TSHR, 38946-0 #### [facility] ([id number]) [address], [address] [place] [address] COMPREHENSIVE METABOLIC PANE [facility] 06-06-2023 Albumin [Mass/Vol] 4.5 g/dL Normal 3.2-5.3 [facility] Comment on above: Performed By: #### C BCA, CMP, 85338-5, , TSHR, 87118-6 #### [facility] ([id number]) [address], [address] [place] [address] ALP [Catalytic activity/Vol] 84 U/L Normal 39-130 [facility] Comment on above: Performed By: #### C BCA, CMP, 03875-9, 54213-5, TSHR, 48511-1 #### [facility] ([id number]) [address], [address] [place] [address] ALT [Catalytic activity/Vol] 27 U/L Normal 0-40 [facility] Comment on above: Performed By: #### C BCA, CMP, 89495-7, 35969-7, TSHR, 96707-5 #### [facility] ([id number]) [address], [address] [place] [address] Anion gap [Moles/Vol] 8 mmol/L Normal 5-15 [facility] Comment on above: Performed By: #### C BCA, CMP, 03842-1, 45420-7, TSHR, 30528-4 #### [facility] ([id number]) [address], [address] [place] [address] AST [Catalytic activity/Vol] 26 U/L Normal 0-41 [facility] Comment on above: Performed By: #### C BCA, CMP, 59713-8, , TSHR, 32536-7 #### [facility] ([id number]) [address], [address] [place] [address] Bilirubin [Mass/Vol] 0.5 mg/dL Normal 0.3-1.2 [facility] Comment on above: Performed By: #### C BCA, CMP, 89251-0, , TSHR, 77930-5 #### [facility] ([id number]) [address], [address] [place] [address] Calcium [Mass/Vol] 9.5 mg/dL Normal 8.5-10.5 [facility] Comment on above: Performed By: #### C BCA, CMP, 99482-1, , TSHR, 19817-0 #### [facility] ([id number]) [address], [address] [place] [address] Chloride [Moles/Vol] 101 mmol/L Normal 98-109 [facility] Comment on above: Performed By: #### C BCA, CMP, 29034-6, 21150-1, TSHR, 68634-9 #### [facility] ([id number]) [address], [address] [place] [address] CO2 [Moles/Vol] 31 mmol/L Normal 22-32 [facility] Comment on above: Performed By: #### C BLAKE, CMP, 89571-5, , TSHR, 02780-3 #### [facility] ([id number]) [address], [address] [place] [address] Creatinine [Mass/Vol] 0.96 mg/dL Normal 0.60-1.30 [facility] Comment on above: Result Comment: METH OD TRACEABLE TO IDMS STANDARD Performed By: #### C BLAKE, DANIELLE, , , TSHR, 10465-2 #### [facility] ([id number]) [address], [address] [address] GFR/1.73 sq M.predicted among non-blacks MDRD (S/P/Bld) [Vol rate/Area] 90 mL/min/{1.73_m2} Normal >59 [facility] Comment on above: Result Comment: Reported eGFR is based on the CKD-EPI 2020 equation that does not use a race coefficient. Performed By: #### C BLAKE, CMP, , , TSHR, 70564-0 #### [facility] ([id number]) [address], [address] [place] [address] Glucose [Mass/Vol] 198 mg/dL High 65-99 [facility] Comment on above: Performed By: #### C BCA, CMP, , , TSHR, 76975-2 #### [facility] ([id number]) [address], [address] [place] [address] Potassium [Moles/Vol] 4.8 mmol/L Normal 3.5-5.0 [facility] Comment on above: Performed By: #### C BCA, CMP, 74757-2, 09888-8, TSHR, 69672-4 #### [facility] ([id number]) [address], [address] [place] [address] Protein [Mass/Vol] 7.3 g/dL Normal 6.0-8.0 [facility] Comment on above: Performed By: #### C BCA, CMP, 63418-7, 74086-6, TSHR, 11117-3 #### [facility] ([id number]) [address], [address] [place] [address] Sodium [Moles/Vol] 140 mmol/L Normal 134-146 [facility] Comment on above: Performed By: #### C BCA, CMP, 34953-3, 08899-8, TSHR, 85450-2 #### [facility] ([id number]) [address], [address] [place] [address] Urea nitrogen [Mass/Vol] 17 mg/dL Normal 5-27 [facility] Comment on above: Performed By: #### C BCA, CMP, 00019-1, , TSHR, 92703-5 #### [facility] ([id number]) [address], [address] [place] [address] FERRITINon 06-06-2023 Ferritin [Mass/Vol] 109 ng/mL Normal 24-336 [facility] Comment on above: Performed By: #### 2 276-4 #### [facility] ([id number]) [address], [address] [place] [address] Lipid 1996 panelon 3 Cholesterol [Mass/Vol] 176 mg/dL Normal 150-200 [facility] Comment on above: Performed By: #### C BCA, CMP, 18646-6, 80315-5, TSHR, 58102-9 #### [facility] ([id number]) [address], [address] [place] [address] Cholesterol in HDL [Mass/Vol] 74 mg/dL Normal >39 [facility] Comment on above: Result Comment: HDL <40 mg/dL - High Risk HDL > or = 40mg/dL- Desirable HDL >60 mg/dL - Negative Risk Performed By: #### C BCA, CMP, 10617-9, 65135-3, TSHR, 18611-2 #### [facility] ([id number]) [address], [address] [address] Cholesterol in LDL [Mass/Vol] 87 mg/dL Normal <130 [facility] Comment on above: Result Comment: LDL <100 mg/dL - Desirable LDL >160 mg/dL - High Risk Performed By: #### C BCA, CMP, 72968-4, 05229-8, TSHR, 87321-6 #### [facility] ([id number]) [address] [address] Cholesterol in VLDL [Mass/Vol] 15 mg/dL Normal 0-30 [facility] Comment on above: Performed By: #### C BCA, CMP, 86497-6, 47348-5, TSHR, 18720-8 #### [facility] ([id number]) [address] [address] CHOLESTEROL:HDL 2.4 Normal 1.0-5.0 [facility] Comment on above: Performed By: #### Cleve BCA, CMP, 92048-8, 75416-9, TSHR, 93121-6 #### [facility] ([id number]) [address], [address] [place] [address] Triglyceride [Mass/Vol] 77 mg/dL Normal 27-150 [facility] Comment on above: Performed By: #### C BCA, CMP, 29437-8, , TSHR, 34335-7 #### [facility] ([id number]) [address] [facility], [address] [place] [address] MAGNESIUMon 06-06-2023 Magnesium [Mass/Vol] 2.0 mg/dL Normal 1.8-2.6 [facility] Comment on above: Performed By: #### C BCA, CMP, 96722-0, , TSHR, 27326-2 #### [facility] ([id number]) [address] [facility] [place] [address] MICROALBUMIN - ALBUMIN:CREAT ININE URINE RATIOon 06-06-2023 ALB/CREAT RATIO 10.2 mg/g creat Normal 0.0-30.0 [facility] Comment on above: Performed By: #### M ALBU #### [facility] ([id number]) [address] [address] Albumin DL <= 20 mg/L (U) [Mass/Vol] 0.7 mg/dL Normal 0.0-1.9 [facility] Comment on above: Performed By: #### M ALBU #### [facility] ([id number]) [address] [place] [address] URINE CREAT 68.64 mg/dL Normal [facility] Comment on above: Performed By: #### M ALBU #### [facility] ([id number]) [address] [place] [address] POCT Hemoglobin I3hRbqswgo B y: Jyoti Yeh on 06-06-2023 ADA Target < 8 Yes [facility] HbA1c (Bld) [Mass fraction] 7.2 g/dL Abnormal 4 - 7 g/dL [facility] Interpretation and review of laboratory results Abnormal [facility] TSH WITH REFLEXon 06-06-2023 TSH 1.16 uIU/mL Normal 0.49-4.67 [facility] Comment on above: Performed By: #### C BLAKE, [facility], 22849-7, , TSHR, 76736-7 #### [facility] ([id number]) [address] [facility] [place] [address] Vitamin D+Metabolites [Mass/ Vol]on 06-06-2023 VITAMIN D 25 HYD TOT 31.9 ng/mL Normal 30-100 [facility] Comment on above: Result Comment: Vitamin D status 25 [place] Vitamin D Deficiency <20 ng/mL Insufficiency 20-29 ng/mL Sufficiency 30-100 ng/mL Toxicity >100 ng/mL NOTE: A pediatric reference range has not been established by the hatchery supervisor of this kit. The [place] [employer] recommends a Vitamin D level of = or >20ng/mL in infants and children. Performed By: #### C BLAKE, [facility], 87441-6, , TSHR, 50386-5 #### [facility] ([id number]) [address] [facility] [place] [address] POC Glucose Fingerstickon Glucose [Mass/Vol] 145 mg/dL High 75 - 110 mg/dL [facility] Interpretation and review of laboratory results Abnormal [facility] Microalb.,Random Uron 2021 Creatinine [Mass/Vol] 59.2 mg/dL Normal 39.0-259.0 [facility] Comment on above: Performed By: #### U RNMAB #### [facility] [employer] [address] [place] [address] Information Assoc: Gregory Brizuela MD Microalb/Creat Ratio Can not be calculated Normal <17 [facility] Comment on above: Performed By: #### U RNMAB #### [facility] [employer] [address] [place], [place] [address] Information Assoc: Gregory Brizuela MD Microalbumin conc. <12 Normal <21 [facility] Comment on above: Performed By: #### U RNMAB #### [facility] [address] [place], [place] [id number] Information Assoc: Gregory Brizuela MD Microalbumin, Uron 2 Albumin/Creatinine DL <= 20 mg/L (24H U) [Mass ratio] <12 <21 mg/L [facility] Albumin/Creatinine DL <= 20 mg/L (U) [Ratio] Can not be calculated <17 mcg/mg creat [facility] [employer] Creatinine [Mass/Vol] 59.2 mg/dL 39.0 - 259.0 mg/dL [facility] WRIST LEFT 3 VWSon 1 WRIST LEFT 3 S [facility] Department of Radiology [address] [place] [phone] Patient Name: SD CARDOZO : 1960 [...] view. Electronically signed: Oscar Chao. Transcribed by: [email or web address], User Resident: Electronically Signed by: OSCAR CHAO @ 09/07/2020 04:24 PM Normal [facility] Comment on above: Order Comment: Evalu ate WRIST LEFT 3 [facility] WRIST LEFT 3 [facility] Department of Radiology [address] [place] [phone] Patient Name: SD CARDOZO : 1960 Sex: M Age: Race: White Pt. Location: Patient Status: O Ordered Date: 08/10/2020 1:45:00 PM Completed Date: 08/10/2020 01:47 PM Requesting Provider: NIKKY CAMARENA Attending Provider: NIKKY CAMARENA Report Copy To: Signs & Symptoms: S62.002A Unsp fracture of navicular bone of left wrist, init I10 History: [place] Comments: Exam: WRIST LEFT 3 VWS WRIST [...] noted. Electronically signed: Liana Lamar. Transcribed by: [email or web address], User Resident: Electronically Signed by: LIANA LAMAR @ 08/10/2020 04:09 PM Normal [facility] COMPREHENSIVE METABOLIC PANE L WITH GFRon 04-29-2020 Albumin [Mass/Vol] 4.4 g/dL Normal 3.2-5.3 [facility] Comment on above: Result Comment: Test performed at [facility] [address] [place] [address] CLIA Number [id number] ------ [facility] [address] [place] [address] CLIA No. [id number] CAP Accreditation No. [id number] Principal Web Developer: Dane Torres M.D. Performed By: #### 2 63, 195, 505 #### [facility] Unless Otherwise Noted [address] [place] [address] [address] [place] [address] / COLA #2852/CLIA # [id number] ALK PHOS 69 U/L Normal 39-130 [facility] Comment on above: Performed By: #### 2 , , 905 #### [facility] Unless Otherwise Noted [address] [facility] [address] [place] [address] / COLA #4724/CLIA # [id number] ALT [Catalytic activity/Vol] 23 U/L Normal 0-40 [facility] Comment on above: Performed By: #### 2 , , 905 #### [facility] Unless Otherwise Noted [address] [address] / COLA #4724/CLIA # [id number] Anion gap [Moles/Vol] 7 mmol/L Normal 5-15 End [facility] Comment on above: Performed By: #### 2 , , 5 #### [facility] Unless Otherwise Noted [address] [address] / COLA #4724/CLIA # [id number] AST-SGOT 21 U/L Normal 0-41 [facility] Comment on above: Performed By: #### 2 , , 905 #### [facility] Unless Otherwise Noted [address] [address] / COLA #4724/CLIA # [id number] Bilirubin.direct [Mass/Vol] 0.4 mg/dL Normal 0.3-1.2 [facility] Comment on above: Performed By: #### 2 , 905 #### [facility] Unless Otherwise Noted [address] [address] / COLA #4724/CLIA # [id number] Calcium [Mass/Vol] 9.3 mg/dL Normal 8.5-10.5 [facility] Comment on above: Performed By: #### 2 , , 905 #### [facility] Unless Otherwise Noted [address] [facility] 100 [place] [address] / COLA #4724/CLIA # [id number] Chloride [Moles/Vol] 102 mmol/L Normal 98-109 [facility] Comment on above: Performed By: #### 2 , , 5 #### [facility] Unless Otherwise Noted [address] [facility] [address] [place] [address] / COLA #4724/CLIA # [id number] CO2 [Moles/Vol] 31 mmol/L Normal 22-32 [facility] Comment on above: Performed By: #### 2 , , 5 #### [facility] Unless Otherwise Noted [address] [facility] [address] [place] [address] / COLA #4724/CLIA # [id number] Creatinine [Mass/Vol] 0.99 mg/dL Normal 0.60-1.30 End [facility] Comment on above: Result Comment: METH OD TRACEABLE TO IDMS STANDARD Performed By: #### 2 , , 5 #### [facility] Unless Otherwise Noted [address] [facility] [address] [place] [address] / COLA #4724/CLIA # [id number] GFR/1.73 sq M predicted among blacks MDRD (S/P/Bld) [Vol rate/Area] mL/min/{1.73_m2} Normal >59 [facility] Comment on above: Performed By: #### 2 , , 5 #### [facility] Unless Otherwise Noted [address] [address] / COLA #4724/CLIA # [id number] GFR/1.73 sq M predicted among non-blacks MDRD (S/P/Bld) [Vol rate/Area] mL/min/{1.73_m2} Normal >59 [facility] Comment on above: Performed By: #### 2 , , 905 #### [facility] Unless Otherwise Noted [address] [address] / COLA #4724/CLIA # [id number] Glucose [Mass/Vol] 111 mg/dL High 65-99 [facility] Comment on above: Performed By: #### 2 , , 902 #### [facility] Unless Otherwise Noted [address] [address] / COLA #4724/CLIA # [id number] Potassium [Moles/Vol] 4.2 mmol/L Normal 3.5-5.0 End [facility] Comment on above: Performed By: #### 2 , , 900 #### [facility] Unless Otherwise Noted [address] [address] / COLA #4724/CLIA # [id number] Protein [Mass/Vol] 6.7 g/dL Normal 6.0-8.0 [facility] Comment on above: Performed By: #### 2 , , 900 #### [facility] Unless Otherwise Noted [address] [address] / COLA #4724/CLIA # [id number] Sodium [Moles/Vol] 140 mmol/L Normal 134-146 [facility] Comment on above: Performed By: #### 2 , 905 #### [facility] Unless Otherwise Noted [address] [facility] [address] [place] [address] / COLA #0024/CLIA # [id number] Urea nitrogen [Mass/Vol] 15 mg/dL Normal 5-23 [facility] Comment on above: Performed By: #### 2 , #### [facility] Unless Otherwise Noted [address] [facility] [address] [place] [address] / COLA #4124/CLIA # [id number] LIPID PANEL WITH REFLEX TO D IRECT LDLon 04-29-2020 Cholesterol [Mass/Vol] 153 mg/dL Normal 150-200 En [facility] Comment on above: Performed By: #### 2 , 3 #### [facility] Unless Otherwise Noted [address] [address] / COLA #8324/CLIA # [id number] Cholesterol in LDL/Cholesterol in HDL [Mass ratio] 1.2 Normal <3.5 [facility] Comment on above: Performed By: #### 2 , 6 #### [facility] Unless Otherwise Noted [address] [address] / COLA #4724/CLIA # [id number] Cholesterol.total/Chol esterol in HDL [Mass ratio] 2.4 {ratio} Normal 1.0-5.0 [facility] Comment on above: Result Comment: Test performed at [facility] [address] [place] [address] CLIA Number [id number] ------ Performed By: #### 2 82, 581, 755 #### [facility] Unless Otherwise Noted [address] [address] / COLA #4724/CLIA # [id number] HDL-CHOL 65 mg/dL Normal >39 [facility] Comment on above: Result Comment: HDL <40 mg/dL - High Risk HDL > or = 40mg/dL- Desirable HDL >60 mg/dL - Negative Risk Performed By: #### 2 , 344, 790 #### [facility] Unless Otherwise Noted [address] [address] / COLA #4736/CLIA # [id number] LDL-CHOL, CALCULATED 76 mg/dL Normal <130 [facility] Comment on above: Result Comment: LDL <100 mg/dL - Desirable LDL >160 mg/dL - High Risk Performed By: #### 2 56, 337, 646 #### [facility] Unless Otherwise Noted [address] [address] / COLA #3292/CLIA # [id number] Triglyceride [Mass/Vol] 58 mg/dL Normal 27-150 [facility] Comment on above: Performed By: #### 2 , 5 #### [facility] Unless Otherwise Noted [address] [facility] [address] [place] [address] / COLA #4724/CLIA # [id number] VLDL-CHOL, CALCULATED 12 mg/dL Normal 0-30 [facility] Comment on above: Performed By: #### 2 , #### [facility] Unless Otherwise Noted [address] [address] / COLA #4724/CLIA # [id number] MICROALBUMIN, RANDOM SPECon 04-29-2020 Creatinine [Mass/Vol] 38.65 mg/dL Normal En [facility] Comment on above: Performed By: #### 2 , , 5 #### [facility] Unless Otherwise Noted [address] [address] / COLA #4724/CLIA # [id number] Creatinine [Mass/Vol] SEE NOTE Normal 0.0-30.0 [facility] Comment on above: Result Comment: NOT CALCULATED Result for Albumin/Creatinine Ratio cannot be reliably calculated because urine albumin and or urine creatinine is below the detection limit of the assay. Performed at [facility] [address] [place] [address] Performed By: #### 2 , #### [facility] Unless Otherwise Noted [address] [address] / COLA #4724/CLIA # [id number] MICROALBUMIN <0.7 Normal 0.0-1.9 [facility] Comment on above: Performed By: #### 2 , , 5 #### [facility] Unless Otherwise Noted [address] [facility] 100 [place] [id number] / COLA #3724/KATHYIA # [id number] Fecal lactoferrinon 10-15-19 20 Lactoferrin, Qual Negative NEGATIVE f or fecal lactoferrin. [place] Rotavirus Antigen, Stoolon 0 10-15-2019 Direct Exam Negative [place] Special Requests NOT REPORTED [place] Specimen Description .FECES [place] SPECIMEN REJECTIONon 020 Ordered Test OBN [place] Reason for Rejection Unable to perform testing: Specimen age beyond stability limit. [place] Specimen source Nom (Unsp spec) .STOOL [place] - NOT REPORTED [place] C-Reactive Proteinon 020 CRP [Mass/Vol] mg/L 0 - 5 mg/L [place] CBC Auto Differentialon 08-15 Basophils (Bld) [#/Vol] 0.00 10*3/uL [place] Basophils/100 WBC (Bld) 1 % 0 - 2 % [place] Differential Type NOT REPORTED [place] Eosinophils (Bld) [#/Vol] 0.30 10*3/uL [place] Eosinophils/100 WBC (Bld) 4 % 0 - 4 % [place] Erythrocyte distribution width (RBC) [Ratio] 13.4 % 11.5 - 14.9 % [place] Hematocrit (Bld) [Volume fraction] 44.1 % 41 - 53 % [place] Hemoglobin (Bld) [Mass/Vol] 14.6 g/dL 13.5 - 17.5 g/dL [place] Interpretation and review of laboratory results Abnormal [place] Lymphocytes (Bld) [#/Vol] 1.80 10*3/uL [place] Lymphocytes/100 WBC (Bld) 28 % 24 - 44 % [place] MCH (RBC) [Entitic mass] 30.1 pg 26 - 34 pg [place] MCHC (RBC) [Mass/Vol] 33.1 g/dL 31 - 37 g/dL M [place] MCV (RBC) [Entitic vol] 90.8 fL 80 - 100 fL [place] Monocytes (Bld) [#/Vol] 0.60 10*3/uL [place] Monocytes/100 WBC (Bld) 10 % High 1 - 7 % [place] Platelet mean volume (Bld) [Entitic vol] 7.8 fL 6 - 12 fL [place] Platelets (Bld) [#/Vol] 220 10*3/uL [place] Platelets (Bld) [#/Vol] NOT REPORTED [place] RBC (Bld) [#/Vol] 4.85 10*6/uL 4.5 - 5.9 m/uL [place] RBC morphology finding Nom (Bld) NOT REPORTED [place] Segmented neutrophils/100 WBC (Bld) 57 % 36 - 66 % [place] Segs Absolute 3.80 [place] WBC (Bld) [#/Vol] NOT REPORTED per 100 WBC [place] WBC (Bld) [#/Vol] 6.5 10*3/uL [place] WBC Morphology NOT REPORTED [place] CT ABDOMEN PELVIS W IV CONTR AST Additional Contrast? Noneon 09-11-2019 Reinaldo, Mhpn Incoming Radiant Results From [employer] - 09/11/2019 10:39 AM EDT EXAMINATION: CT [...] patient pain. Additional unchanged findings, as above. [place] No acute CT finding in the abdomen or pelvis. No obstructive uropathy. No CT evidence of appendicitis. Persistent moderate constipation, mostly ascending and transverse colon. Correlate with patient pain. Additional unchanged findings, as above. [place] EXAMINATION: CT OF THE ABDOMEN AND [...] degenerative changes T10-T12 with slight wedging T11. [place] Comprehensive Metabolic Pane shant 09-11-2019 Albumin [Mass/Vol] 4.3 g/dL 3.5 - 5.2 g/dL [place] Albumin/Globulin [Mass ratio] NOT REPORTED [place] ALP [Catalytic activity/Vol] 71 U/L 40 - 129 U/L [place] ALT [Catalytic activity/Vol] 20 U/L 5 - 41 U/L [place] Anion gap [Moles/Vol] 12 mmol/L 9 - 17 mmol/L [place] AST [Catalytic activity/Vol] 24 U/L <40 [place] Bilirubin Ql (U) 0.42 mg/dL 0.3 - 1.2 mg/dL [place] Bun/Cre Ratio NOT REPORTED [place] Calcium [Mass/Vol] 9.0 mg/dL 8.6 - 10. 4 mg/dL [place] Chloride [Moles/Vol] 101 mmol/L 98 - 10 7 mmol/L [place] CO2 [Moles/Vol] 26 mmol/L 20 - 31 mmol/L [place] Creatinine [Mass/Vol] 0.79 mg/dL 0.7 - 1.2 mg/dL [place] GFR >60 >60 mL/min [place] GFR Non- >60 >60 mL/min [place] GFR/1.73 sq M predicted among non-blacks MDRD (S/P/Bld) [Vol rate/Area] [place] Comment on above: Average GFR for 50-5 9 years old: 93 mL/min/1.73sq m Chronic Kidney Disease: <60 mL/min/1.73sq m Kidney failure: <15 mL/min/1.73sq m eGFR calculated using average adult body mass. Additional eGFR calculator available at: http://www.Cittadino/multiple_crcl_2012.htm GFR/1.73 sq M predicted among non-blacks MDRD (S/P/Bld) [Vol rate/Area] NOT REPORTED [place] Glucose [Mass/Vol] 168 mg/dL High 70 - 99 mg/dL [place] Potassium [Moles/Vol] 4.1 mmol/L 3.7 - 5.3 mmol/L [place] Protein [Mass/Vol] 7.3 g/dL 6.4 - 8.3 g/dL [place] Sodium [Moles/Vol] 139 mmol/L 135 - 144 mmol/L [place] Urea nitrogen [Mass/Vol] 15 mg/dL 6 - 20 mg/dL [place] LACTATE DEHYDROGENASEon 08-15 LD 161 U/L 135 - 225 U/L [place] Lipaseon 09-11-2019 Lipase [Catalytic activity/Vol] 12 U/L Low 13 - 60 U/L [place] Otheron 09-11-2019 Interpretation and review of laboratory results Abnormal [place] Immature granulocytes (Bld) [#/Vol] NOT REPORTED 0 % [place] Urinalysison 09-11-2019 Bilirubin Urine Negative NEGATIVE [place] Color, UA YELLOW YELLOW [place] Glucose, Ur Negative NEGATIVE [place] Interpretation and review of laboratory results Abnormal [place] Ketones Ql (U) SMALL Abnormal NEGATIVE [place] Leukocyte esterase Test strip Ql (U) Negative NEGATIVE [place] Nitrite, Urine Negative NEGATIVE [place] pH, UA 6.0 [place] Protein (U) [Mass/Vol] Negative NEGATIVE [place] Specific [place], UA 1.043 High [place], [place] Turbidity UA CLEAR CLEAR [place] Urinalysis Comments Microscopic exam not performed based on chemical results unless requested in original order. [place] Urine Hgb Negative NEGATIVE [place] Urobilinogen, Urine Normal Normal [place] CBC with DIFFon 09-03-2019 Basophils (Bld) [#/Vol] 0.10 10*3/uL [place] Basophils/100 WBC (Bld) 1 % 0 - 2 % [place] Differential Type NOT REPORTED [place] Eosinophils (Bld) [#/Vol] 0.10 10*3/uL [place] Eosinophils/100 WBC (Bld) 2 % 0 - 4 % [place] Erythrocyte distribution width (RBC) [Ratio] 13.1 % 11.5 - 14.9 % [place] Hematocrit (Bld) [Volume fraction] 39.9 % Low 41 - 53 % [place] Hemoglobin (Bld) [Mass/Vol] 13.5 g/dL 13.5 - 17.5 g/dL [place] Interpretation and review of laboratory results Abnormal [place] Lymphocytes (Bld) [#/Vol] 1.50 10*3/uL [place] Lymphocytes/100 WBC (Bld) 23 % Low 24 - 44 % [place] MCH (RBC) [Entitic mass] 30.0 pg 26 - 34 pg [place] MCHC (RBC) [Mass/Vol] 33.9 g/dL 31 - 37 g/dL M [place] MCV (RBC) [Entitic vol] 88.7 fL 80 - 100 fL [place] Monocytes (Bld) [#/Vol] 0.60 10*3/uL [place] Monocytes/100 WBC (Bld) 10 % High 1 - 7 % [place] Platelet mean volume (Bld) [Entitic vol] 7.8 fL 6 - 12 fL [place] Platelets (Bld) [#/Vol] 232 10*3/uL [place] Platelets (Bld) [#/Vol] NOT REPORTED [place] RBC (Bld) [#/Vol] 4.49 10*6/uL Low 4.5 - 5.9 m/uL [place] RBC morphology finding Nom (Bld) NOT REPORTED [place] Segmented neutrophils/100 WBC (Bld) 64 % 36 - 66 % [place] Segs Absolute 4.30 [place] WBC (Bld) [#/Vol] NOT REPORTED per 100 WBC [place] WBC (Bld) [#/Vol] 6.6 10*3/uL [place] WBC Morphology NOT REPORTED [place] Comprehensive Metabolic Pane shant 09-03-2019 Albumin [Mass/Vol] 4.2 g/dL 3.5 - 5.2 g/dL [place] Albumin/Globulin [Mass ratio] NOT REPORTED [place] ALP [Catalytic activity/Vol] 76 U/L 40 - 129 U/L [place] ALT [Catalytic activity/Vol] 19 U/L 5 - 41 U/L [place] Anion gap [Moles/Vol] 12 mmol/L 9 - 17 mmol/L [place] AST [Catalytic activity/Vol] 19 U/L <40 [place] Bilirubin Ql (U) 0.25 mg/dL Low 0.3 - 1.2 mg/dL [place] Bun/Cre Ratio NOT REPORTED [place], [place] Calcium [Mass/Vol] 8.9 mg/dL 8.6 - 10. 4 mg/dL [place] Chloride [Moles/Vol] 97 mmol/L Low 98 - 10 7 mmol/L [place] CO2 [Moles/Vol] 27 mmol/L 20 - 31 mmol/L [place] Creatinine [Mass/Vol] 0.7 mg/dL 0.7 - 1.2 mg/dL [place] GFR >60 >60 mL/min [place] GFR Non- >60 >60 mL/min [place] GFR/1.73 sq M predicted among non-blacks MDRD (S/P/Bld) [Vol rate/Area] NOT REPORTED [place] GFR/1.73 sq M predicted among non-blacks MDRD (S/P/Bld) [Vol rate/Area] [place] Comment on above: Average GFR for 50-5 9 years old: 93 mL/min/1.73sq m Chronic Kidney Disease: <60 mL/min/1.73sq m Kidney failure: <15 mL/min/1.73sq m eGFR calculated using average adult body mass. Additional eGFR calculator available at: http://www.Cittadino/multiple_crcl_2012.htm Glucose [Mass/Vol] 245 mg/dL High 70 - 99 mg/dL [place] Interpretation and review of laboratory results Abnormal [place] Potassium [Moles/Vol] 4.5 mmol/L 3.7 - 5.3 mmol/L [place] Protein [Mass/Vol] 7.0 g/dL 6.4 - 8.3 g/dL [place] Sodium [Moles/Vol] 136 mmol/L 135 - 144 mmol/L [place] Urea nitrogen [Mass/Vol] 17 mg/dL 6 - 20 mg/dL [place] Otheron 09-03-2019 Immature granulocytes (Bld) [#/Vol] NOT REPORTED 0 % [place] Urinalysis Reflex to Culture on 09-03-2019 Bilirubin Urine Negative NEGATIVE [place], [place] Color, UA YELLOW YELLOW [place] Glucose, Ur Negative NEGATIVE [place] Ketones Ql (U) Negative NEGATIVE [place] Leukocyte esterase Test strip Ql (U) Negative NEGATIVE [place] Nitrite, Urine Negative NEGATIVE [place] pH, UA 7.0 [place] Protein (U) [Mass/Vol] Negative NEGATIVE [place] Specific [place], UA 1.003 [place], [place] Turbidity UA CLEAR CLEAR [place] Urinalysis Comments Microscopic exam not performed based on chemical results unless requested in original order. [facility] [place] Urine Hgb Negative NEGATIVE [facility] [place] Urobilinogen, Urine Normal Normal [facility] [place] Vital Signs Date Time Vital Sign Value Performing Clinician Moses clinton 03-30-2025 11:44-0400 Body height 177.8 cm Alejandro Umaña MD Work Phone: [facility] 03-30-2025 11:44-0400 Body mass index (BMI) [Ratio] 22.1 kg/m2 Alejandro Umaña MD Work Phone: [facility] 03-30-2025 11:44-0400 Body temperature 97.5 [degF] Alejandro Umaña MD Work Phone: [facility] 03-30-2025 11:44-0400 Body weight 69.85 kg Alejandro Umaña MD Work Phone: [facility] 03-30-2025 11:44-0400 Diastolic blood pressure 86 mm[Hg] Alejandro Umaña MD Work Phone: [facility] 03-30-2025 11:44-0400 Heart rate 71 /min Alejandro Umaña MD Work Phone: [facility] 03-30-2025 11:44-0400 Respiratory rate 18 /min Alejandro Umaña MD Work Phone: [facility] 03-30-2025 11:44-0400 SaO2% (BldA) [Mass fraction] 99 % Alejandro Umaña MD Work Phone: [facility] 03-30-2025 11:44-0400 Systolic blood pressure 140 mm[Hg] Alejandro Umaña MD Work Phone: [facility] 01-27-2025 14:00-0400 Body height 175.3 cm Chani Weinberg APRNFit [employer]ugitives Work Phone: [facility] 01-27-2025 14:00-0400 Body mass index (BMI) [Ratio] 21.08 kg/m2 Chani Weinberg APRN-BOX TRUCK OWNER OPERATOR Work Phone: [facility] 01-27-2025 14:00-0400 Body temperature 97.59 [degF] Chani Weinberg APRN-BOX TRUCK OWNER OPERATOR [facility] Phone: [facility] 01-27-2025 14:00-0400 Body weight 64.77 kg Chani Weinberg APRN-BOX TRUCK OWNER OPERATOR Work Phone: [facility] 01-27-2025 14:00-0400 Diastolic blood pressure 76 mm[Hg] Chani Weinberg APRN-BOX TRUCK OWNER OPERATOR Work Phone: [facility] 01-27-2025 14:00-0400 Heart rate 84 /min Chani Weinberg APRN-SARAH Work Phone: [facility] 01-27-2025 14:00-0400 SaO2% (BldA) [Mass fraction] 98 % Chani Weinberg APRN-SARAH Work Phone: [facility] [employer] 01-27-2025 14:00-0400 Systolic blood pressure 118 mm[Hg] Chani Weinberg APRN-SARAH Work Phone: [facility] [employer] 12-09-2024 11:21-0400 Body height 175.3 cm Chani Weinberg APRN-SARAH Work Phone: [facility] 12-09-2024 11:21-0400 Body mass index (BMI) [Ratio] 22.11 kg/m2 Chani Weinberg APRN-[employer] TRUCK OWNER OPERATOR Work Phone: [facility] 12-09-2024 11:21-0400 Body temperature 97.5 [degF] Chani Weinberg APRN-SARAH Work Phone: [facility] [employer] 12-09-2024 11:21-0400 Body weight 67.95 kg Chani Weinberg APRN-BOX TRUCK OWNER OPERATOR Work Phone: [facility] 12-09-2024 11:21-0400 Diastolic blood pressure 82 mm[Hg] Chani Weinberg APRN-[employer] TRUCK OWNER OPERATOR Work Phone: [facility] [facility] 12-09-2024 11:21-0400 Heart rate 79 /min Chani Weinberg APRN-[employer] TR[employer] OWNER OPERATOR Work Phone: [facility] [facility] 12-09-2024 11:21-0400 SaO2% (BldA) [Mass fraction] 97 % Chani Weinberg APRN-[employer] TRUCK OWNER OPERATOR Work Phone: [facility] [facility] 12-09-2024 11:21-0400 Systolic blood pressure 140 mm[Hg] Chani Weinberg APRN-BOX TRUCK OWNER OPERATOR Work Phone: [facility] 10-26-2024 14:01-0400 Body height 175.3 cm Chani Weinberg APRN-BOX TRUCK OWNER OPERATOR Work Phone: [facility] [facility] 10-26-2024 14:01-0400 Body mass index (BMI) [Ratio] 22.11 kg/m2 Chani Weinberg APRN-[employer] TRUCK OWNER OPERATOR Work Phone: [facility] 10-26-2024 14:01-0400 Body temperature 97.11 [degF] Chani Weinberg APRN-BOX TRUCK OWNER OPERATOR Work Phone: [facility] [facility] 10-26-2024 14:01-0400 Body weight 67.95 kg Chani Weinberg APRN-BOX TRUCK OWNER OPERATOR Work Phone: [facility] 10-26-2024 14:01-0400 Diastolic blood pressure 80 mm[Hg] Chani Weinberg APRN-[employer] TRUCK OWNER OPERATOR Work Phone: [facility] 10-26-2024 14:01-0400 Heart rate 75 /min Chani Weinberg APRN-[employer] TR[employer] OWNER OPERATOR Work Phone: [facility] 10-26-2024 14:01-0400 SaO2% (BldA) [Mass fraction] 93 % Chani Weinberg APRN-[employer] TRUCK OWNER OPERATOR Work Phone: [facility] 10-26-2024 14:01-0400 Systolic blood pressure 122 mm[Hg] Chani Weinberg APRN-BOX TRUCK OWNER OPERATOR Work Phone: [facility] [facility] 07-27-2024 14:06-0500 Body height 175.3 cm Chani Weinberg APRN-BOX TRUCK OWNER OPERATOR Work Phone: [facility] [facility] 07-27-2024 14:06-0500 Body mass index (BMI) [Ratio] 22.64 kg/m2 Chani Weinberg APRN-[employer] TRUCK OWNER OPERATOR Work Phone: [facility] 07-27-2024 14:06-0500 Body temperature 98.1 [degF] Chani Weinberg APRN-BOX TRUCK OWNER OPERATOR Work Phone: [facility] 07-27-2024 14:06-0500 Body weight 69.58 kg Chani Weinberg APRN-BOX TRUCK OWNER OPERATOR Work Phone: [facility] 07-27-2024 14:06-0500 Diastolic blood pressure 84 mm[Hg] Chani Weinberg APRN-BOX TRUCK OWNER OPERATOR Work Phone: [facility] [employer] 07-27-2024 14:06-0500 Heart rate 73 /min Chani Weinberg APRN-BOX TRUCK OWNER OPERATOR Work Phone: [facility] 07-27-2024 14:06-0500 SaO2% (BldA) [Mass fraction] 98 % Chani Weinberg APRN-BOX TRUCK OWNER OPERATOR Work Phone: [facility] 07-27-2024 14:06-0500 Systolic blood pressure 140 mm[Hg] Chani Weinberg APRN-BOX TRUCK OWNER OPERATOR Work Phone: [facility] 05-31-2024 15:51-0500 Body height 177.8 cm Pratima Cortes NP Work Phone: [facility] 05-31-2024 15:51-0500 Body mass index (BMI) [Ratio] 21.52 kg/m2 Pratima Cortes NP Work Phone: [facility] 05-31-2024 15:51-0500 Body temperature 97.7 [degF] Pratima Cortes BILLET SAWYER Work Phone: [facility] 05-31-2024 15:51-0500 Body weight 68.04 kg Pratima Cortes BILLET SAWYER Work Phone: [facility] 05-31-2024 15:51-0500 Diastolic blood pressure 84 mm[Hg] Pratima Cortes BILLET SAWYER Work Phone: [facility] 05-31-2024 15:51-0500 Heart rate 61 /min Pratima Cortes BILLET SAWYER Work Phone: [facility] 05-31-2024 15:51-0500 SaO2% (BldA) [Mass fraction] 99 % Pratima Cortes BILLET SAWYER Work Phone: [facility] 05-31-2024 15:51-0500 Systolic blood pressure 134 mm[Hg] Pratima Cortes BILLET SAWYER Work Phone: [facility] 04-23-2024 13:59-0500 Body height 175.3 cm Chani Weinberg 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 Work Phone: [facility] 04-23-2024 13:59-0500 Body mass index (BMI) [Ratio] 22.32 kg/m2 Chani Livingood 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 Work Phone: [facility] 04-23-2024 13:59-0500 Body temperature 98.2 [degF] Chani Livingood 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 Work Phone: [facility] 04-23-2024 13:59-0500 Body weight 68.58 kg Chani Livingood 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 Work Phone: [facility] 04-23-2024 13:59-0500 Diastolic blood pressure 84 mm[Hg] Chani Livingood 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 Work Phone: [facility] 04-23-2024 13:59-0500 Heart rate 84 /min Chani Livingood 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 Work Phone: [facility] 04-23-2024 13:59-0500 SaO2% (BldA) [Mass fraction] 99 % Chani Weinberg APRN-BOX TRUCK OWNER OPERATOR Work Phone: [facility] 04-23-2024 13:59-0500 Systolic blood pressure 130 mm[Hg] Chani Weinberg 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 Work Phone: [facility] 03-19-2024 14:02-0400 Body mass index (BMI) [Ratio] 21.61 kg/m2 Chani Weinberg APRN-BOX TRUCK OWNER OPERATOR Work Phone: [facility] 03-19-2024 14:02-0400 Body temperature 97.9 [degF] Chani Weinberg APRN-BOX TRUCK OWNER OPERATOR Work Phone: [facility] 03-19-2024 14:02-0400 Body weight 66.41 kg Chani Weinberg APRN-BOX TRUCK OWNER OPERATOR Work Phone: [facility] 03-19-2024 14:02-0400 Diastolic blood pressure 80 mm[Hg] Chani Weinberg APRN-BOX TRUCK OWNER OPERATOR Work Phone: [facility] 03-19-2024 14:02-0400 Heart rate 86 /min Chani Weinberg APRN-BOX TRUCK OWNER OPERATOR Work Phone: [facility] 03-19-2024 14:02-0400 SaO2% (BldA) [Mass fraction] 97 % Chani Weinberg APRN-BOX TRUCK OWNER OPERATOR Work Phone: [facility] 03-19-2024 14:02-0400 Systolic blood pressure 130 mm[Hg] Chani Weinberg APRN-BOX TRUCK OWNER OPERATOR Work Phone: [facility] 02-17-2024 11:39-0400 Body mass index (BMI) [Ratio] 21.82 kg/m2 Chani Weinberg 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 Work Phone: [facility] 02-17-2024 11:39-0400 Body temperature 98.8 [degF] Chani Weinberg 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 Work Phone: [facility] 02-17-2024 11:39-0400 Body weight 67.04 kg Chani Weinberg 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 Work Phone: [facility] 02-17-2024 11:39-0400 Diastolic blood pressure 80 mm[Hg] Chani Weinberg 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 Work Phone: [facility] 02-17-2024 11:39-0400 Heart rate 71 /min Chani Weinberg 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 Work Phone: [facility] 02-17-2024 11:39-0400 SaO2% (BldA) [Mass fraction] 96 % Chani Weinberg 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 Work Phone: [facility] 02-17-2024 11:39-0400 Systolic blood pressure 140 mm[Hg] Chani Weinberg 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 Work Phone: [facility] 01-30-2024 16:06-0400 Body height 175.3 cm Chani Weinberg 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 Work Phone: [facility] 01-30-2024 16:06-0400 Body mass index (BMI) [Ratio] 21.82 kg/m2 Chani Weinberg 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 Work Phone: [facility] 01-30-2024 16:06-0400 Body temperature 98.4 [degF] Chani Weinberg 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 Work Phone: [facility] 01-30-2024 16:06-0400 Body weight 67.04 kg Chani Weinberg 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 Work Phone: [facility] 01-30-2024 16:06-0400 Diastolic blood pressure 80 mm[Hg] Chani Weinberg 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 Work Phone: [facility] 01-30-2024 16:06-0400 Heart rate 69 /min Chani Weinberg APRN-BOX TRUCK OWNER OPERATOR Work Phone: [facility] 01-30-2024 16:06-0400 SaO2% (BldA) [Mass fraction] 94 % Chani Weinberg APRN-BOX TRUCK OWNER OPERATOR [facility] 01-30-2024 16:06-0400 Systolic blood pressure 120 mm[Hg] Chani Weinberg APRN-BOX TRUCK OWNER OPERATOR Work Phone: [facility] 12-22-2023 14:37-0400 Blood Pressure Location Kim ORTIZ [facility] 12-22-2023 14:37-0400 Body temperature 98.6 [degF] Kim ORTIZ [facility] 12-22-2023 14:37-0400 Diastolic blood pressure 77 mm[Hg] Kim ORTIZ [facility] 12-22-2023 14:37-0400 Heart rate 82 /min Kim ORTIZ [facility] 12-22-2023 14:37-0400 Respiratory rate 16 /min Kim ORTIZ [facility] 12-22-2023 14:37-0400 Systolic blood pressure 134 mm[Hg] Kim ORTIZ [facility] 12-09-2023 14:03-0400 Body height 175.3 cm Chani Weinberg APRN-BOX TRUCK OWNER OPERATOR Work Phone: [facility] 12-09-2023 14:03-0400 Body mass index (BMI) [Ratio] 22.23 kg/m2 Chani Weinberg APRN-BOX TRUCK OWNER OPERATOR Work Phone: [facility] 12-09-2023 14:03-0400 Body temperature 98.6 [degF] Chani Weinberg APRN-BOX TRUCK OWNER OPERATOR Work Phone: [facility] 12-09-2023 14:03-0400 Body weight 68.31 kg Chani Weinberg APRN-BOX TRUCK OWNER OPERATOR Work Phone: [facility] 12-09-2023 14:03-0400 Diastolic blood pressure 80 mm[Hg] Chani Weinberg APRN-BOX TRUCK OWNER OPERATOR Work Phone: [facility] 12-09-2023 14:03-0400 Heart rate 82 /min Chani Weinberg APRN-BOX TRUCK OWNER OPERATOR Work Phone: [facility] 12-09-2023 14:03-0400 SaO2% (BldA) [Mass fraction] 96 % Chani Weinberg APRN-BOX TRUCK OWNER OPERATOR Work Phone: [facility] 12-09-2023 14:03-0400 Systolic blood pressure 120 mm[Hg] Chani Weinberg APRN-BOX TRUCK OWNER OPERATOR Work Phone: [facility] 10-16-2023 15:00-0400 Body height 175.3 cm Chani Weinberg APRN-BOX TRUCK OWNER OPERATOR Work Phone: [facility] 10-16-2023 15:00-0400 Body mass index (BMI) [Ratio] 22.2 kg/m2 Chani Weinberg APRN-BOX TRUCK OWNER OPERATOR Work Phone: [facility] 10-16-2023 15:00-0400 Body temperature 97.5 [degF] Chani Weinberg APRN-BOX TRUCK OWNER OPERATOR Work Phone: [facility] 10-16-2023 15:00-0400 Body weight 68.22 kg Chani Weinberg APRN-BOX TRUCK OWNER OPERATOR Work Phone: [facility] 10-16-2023 15:00-0400 Diastolic blood pressure 82 mm[Hg] Chani Weinberg APRN-BOX TRUCK OWNER OPERATOR Work Phone: [email or web address] 10-16-2023 15:00-0400 Heart rate 77 /min Chani Weinberg APRN-BOX TRUCK OWNER OPERATOR [facility] 10-16-2023 15:00-0400 SaO2% (BldA) [Mass fraction] 97 % Chani Weinberg APRN-SARAH Work [facility] 10-16-2023 15:00-0400 Systolic blood pressure 120 mm[Hg] Chani Weinberg APRN-BOX TRUCK OWNER OPERATOR Work Phone[facility] 10-06-2023 13:57-0400 Body height 175.3 cm Chas Hapner DO Work [facility] 10-06-2023 13:57-0400 Body mass index (BMI) [Ratio] 22.64 kg/m2 Chas Hapner DO Work Phone: [email or web address] 10-06-2023 13:57-0400 Body temperature 97.81 [degF] Chas Hapner DO Work Phone: [email or web address] 10-06-2023 13:57-0400 Body weight 69.58 kg Chas Hapner DO Work Phone: [email or web address] 10-06-2023 13:57-0400 Diastolic blood pressure 82 mm[Hg] Chas Hapner DO Work Phone: [email or web address] 10-06-2023 13:57-0400 Heart rate 64 /min Chas Hapner DO [facility] 10-06-2023 13:57-0400 SaO2% (BldA) [Mass fraction] 98 % Chas Hapner DO Work Phone: [facility] 10-06-2023 13:57-0400 Systolic blood pressure 124 mm[Hg] Chas Hapner DO Work Phone: [email or web address] 09-04-2023 15:01-0400 Body height 175.3 cm Chani Weinberg APRN-BOX TRUCK OWNER OPERATOR Work Phone: [facility] 09-04-2023 15:01-0400 Body mass index (BMI) [Ratio] 22.88 kg/m2 Chani Weinberg APRN-BOX TRUCK OWNER OPERATOR Work Phone: [facility] 09-04-2023 15:01-0400 Body temperature 98.1 [degF] Chani Weinberg 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 Work Phone: [facility] 09-04-2023 15:01-0400 Body weight 70.31 kg Chani Weinberg 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 Work Phone: [facility] 09-04-2023 15:01-0400 Diastolic blood pressure 82 mm[Hg] Chani Weinberg APRN-BOX TRUCK OWNER OPERATOR Work Phone[facility] 09-04-2023 15:01-0400 Heart rate 76 /min Chani Weinberg APRN-BOX TRUCK OWNER OPERATOR Work Phone[facility] 09-04-2023 15:01-0400 SaO2% (BldA) [Mass fraction] 96 % Chani Weinberg APRN-BOX TRUCK OWNER OPERATOR Work Phone: [facility] 09-04-2023 15:01-0400 Systolic blood pressure 130 mm[Hg] Chani Weinberg 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 Work Phone: [facility] 07-10-2023 14:56-0500 Body height 175.3 cm Chani Weinberg APRN-BOX TRUCK OWNER OPERATOR Work Phone: [facility] 07-10-2023 14:56-0500 Body mass index (BMI) [Ratio] 23.09 kg/m2 Chani Weinberg 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 Work Phone: [facility] 07-10-2023 14:56-0500 Body temperature 98.4 [degF] Chani Weinberg APRN-BOX TRUCK OWNER OPERATOR Work Phone: [facility] 07-10-2023 14:56-0500 Body weight 70.94 kg Chani Weinberg APRN-BOX TRUCK OWNER OPERATOR Work Phone: [facility] 07-10-2023 14:56-0500 Diastolic blood pressure 82 mm[Hg] Chani Weinberg APRN-BOX TRUCK OWNER OPERATOR Work Phone: [facility] 07-10-2023 14:56-0500 Heart rate 84 /min Chani Weinberg APRN-BOX TRUCK OWNER OPERATOR Work Phone: [facility] 07-10-2023 14:56-0500 SaO2% (BldA) [Mass fraction] 97 % Chani Weinberg APRN-BOX TRUCK OWNER OPERATOR Work Phone: [facility] 07-10-2023 14:56-0500 Systolic blood pressure 122 mm[Hg] Chani Weinberg APRN-BOX TRUCK OWNER OPERATOR Work Phone: [facility] 06-06-2023 14:51-0500 Body height 175.3 cm Chani Weinberg APRN-BOX TRUCK OWNER OPERATOR Work Phone: [facility] 06-06-2023 14:51-0500 Body mass index (BMI) [Ratio] 22.64 kg/m2 Chani Weinberg APRN-BOX TRUCK OWNER OPERATOR Work Phone: [facility] 06-06-2023 14:51-0500 Body temperature 97.3 [degF] Chani Weinberg APRN-BOX TRUCK OWNER OPERATOR Work Phone: [facility] 06-06-2023 14:51-0500 Body weight 69.58 kg Chani Weinberg APRN-BOX TRUCK OWNER OPERATOR Work Phone: [facility] 06-06-2023 14:51-0500 Diastolic blood pressure 76 mm[Hg] Chani Weinberg APRN-BOX TRUCK OWNER OPERATOR Work Phone: [facility] 06-06-2023 14:51-0500 Heart rate 72 /min Chani Weinberg 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 Work Phone: [facility] 06-06-2023 14:51-0500 SaO2% (BldA) [Mass fraction] 99 % Chani Weinberg 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 Work Phone: [facility] 06-06-2023 14:51-0500 Systolic blood pressure 120 mm[Hg] Chani Weinberg 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 Work Phone: [facility] [facility] 10-30-2021 13:49-0400 Body temperature 97.11 [degF] Colton Romero MD [facility] 10-30-2021 13:49-0400 Diastolic blood pressure 63 mm[Hg] Colton Romero MD [facility] 10-30-2021 13:49-0400 Heart rate 60 /min Colton Romero MD [facility] 10-30-2021 13:49-0400 Respiratory rate 12 /min Colton Romero MD [facility] 10-30-2021 13:49-0400 SaO2% (BldA) [Mass fraction] 99 % Colton Romero MD [facility] 10-30-2021 13:49-0400 Systolic blood pressure 116 mm[Hg] Colton Romero MD [facility] 10-30-2021 11:30-0400 Body height 177.8 cm Colton Romero MD [facility] 10-30-2021 11:30-0400 Body mass index (BMI) [Ratio] 22.24 kg/m2 Colton Romero MD [facility] 10-30-2021 11:30-0400 Body weight 70.31 kg Colton Romero MD [facility] 10-18-2021 14:21-0400 Body height 177.8 cm [facility] [employer] 10-18-2021 14:21-0400 Body mass index (BMI) [Ratio] 22.24 kg/m2 [address] 10-18-2021 14:21-0400 Body weight 70.31 kg [facility] [employer] 07-31-2020 18:54-0500 BMI (Body Mass Index) 22.96 kg/m2 [employer] Work Phone: 07-31-2020 18:54-0500 Body Temperature 98.1 [degF] [employer] Phone: 07-31-2020 18:54-0500 Body weight 72.58 kg [employer] Phone: 07-31-2020 18:54-0500 Height 177.8 cm [employer] Phone: 07-31-2020 18:54-0500 Pulse (Heart Rate) 82 /min [employer] Phone: 07-31-2020 18:54-0500 Pulse Oximetry 97 % [employer] Phone: 07-31-2020 18:54-0500 Respiratory Rate 18 /min [employer] Phone: 09-11-2019 09:26-0400 BMI (Body Mass Index) 22.96 kg/m2 [place] 09-11-2019 09:26-0400 Body Temperature 97.5 [degF] [facility], [place] 09-11-2019 09:26-0400 Body weight 72.58 kg [place] [place] 09-11-2019 09:26-0400 BP Diastolic 87 mm[Hg] [place] 09-11-2019 09:26-0400 BP Systolic 144 mm[Hg] [place] 09-11-2019 09:26-0400 Height 177.8 cm [facility] [place] 09-11-2019 09:26-0400 Pulse (Heart Rate) 92 /min [facility] [place] 09-11-2019 09:26-0400 Pulse Oximetry 99 % [facility] [place] 09-11-2019 09:26-0400 Respiratory Rate 14 /min [facility] [place] 09-03-2019 14:07-0400 BMI (Body Mass Index) 22.53 kg/m2 [facility], [place] 09-03-2019 14:07-0400 Body Temperature 97.81 [degF] [facility] [place], [place] 09-03-2019 14:07-0400 Body weight 71.22 kg [facility] [place], [place] 09-03-2019 14:07-0400 BP Diastolic 93 mm[Hg] [facility], [place] 09-03-2019 14:07-0400 BP Systolic 153 mm[Hg[facility] [place] [place] 09-03-2019 14:07-0400 Pulse (Heart Rate) 75 /min [facility] [place] 09-03-2019 14:07-0400 Pulse Oximetry 100 % [place], [place] 09-03-2019 14:07-0400 Respiratory Rate 14 /min [place], [place] Encounters Encounter Date Encounter Type Care Provider Facility Start: 07-25-2025 ambulatory Kim Stanley ty:[facility] Start: 03-30-2025 End: 03-30-2025 Ryan Umaña MD Work Phone: [facility] Start: 03-30-2025 End: 03-30-2025 Ryan Umaña MD Work Phone: [facility] Start: 03-30-2025 End: 03-30-2025 Office outpatient visit 15 minutes Alejandro Umaña MD Work Phone: [facility] Comment on above: Lumbosacral strain, initial encounter (Primary Dx); Type 2 diabetes mellitus without complications (HCC); Unspecified chronic bronchitis (HCC); Spasm of abdominal muscles Start: 03-26-2025 End: 03-26-2025 Clinisync Result Encounter Generic External Data Provider [facility] External Department Unsolicited Start: 03-26-2025 End: 03-26-2025 Clinisync Result Encounter Generic External Data Provider [facility] External Department Unsolicited Start: 01-27-2025 End: 01-27-2025 ambulatory [facility] Start: 01-27-2025 End: 03-29-2025 Follow-up encounter [facility] 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 Work Phone: [facility] Comment on above: X-ray chest 2 views, CBC auto differential, Comprehensive metabolic panel, Additional followed-up results: 5 Start: 01-27-2025 End: 01-27-2025 Office outpatient visit 25 minutes [facility] BRANCH SERVICE SPECIALISTFit [employer]ugitives Work Phone: [facility] Comment on above: Diabetes mellitus ty pe 1, controlled, insulin dependent ([facility]) (Primary Dx); Mixed hyperlipidemia; Encounter for screening for malignant neoplasm of prostate; Recurrent productive cough; Encounter for screening for depression Start: 01-27-2025 End: 01-27-2025 ambulatory [facility] Start: 01-24-2025 End: 01-24-2025 ambulatory Kim ORTIZ Facility:[facility] Start: 01-24-2025 End: 01-24-2025 Patient encounter procedure Kim ORTIZ [facility] Start: 01-17-2025 End: 01-19-2025 Clinisync Result Encounter Generic External Data Provider [facility] External Department Unsolicited Start: 01-17-2025 End: 01-19-2025 Clinisync Result Encounter Generic External Data Provider [facility] External Department Unsolicited Start: 12-09-2024 End: 12-09-2024 Office outpatient visit 15 minutes Chani Weinberg 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 Work Phone: [facility] Comment on above: Non-recurrent acute suppurative otitis media of right ear without spontaneous rupture of tympanic membrane (Primary Dx); Cerumen debris on tympanic membrane of right ear; Otitis interna, right Start: 12-09-2024 End: 12-09-2024 ambulatory [facility] Start: 10-26-2024 End: 10-26-2024 Office outpatient visit 25 minutes Chani Weinberg 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 Work Phone: [facility] Comment on above: Diabetes mellitus ty pe 1, controlled, insulin dependent ([facility]) (Primary Dx); Mixed hyperlipidemia Start: 10-26-2024 End: 10-26-2024 ambulatory [facility] Start: 10-17-2024 End: 10-17-2024 Refill Chani Weinberg 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 Work Phone: [facility] Start: 10-02-2024 End: 10-02-2024 Refill Chani Weinberg 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 Work Phone: [facility] Comment on above: Diabetes mellitus ty pe 1, controlled, insulin dependent ([facility]) Start: 07-27-2024 End: 07-27-2024 Office outpatient visit 40 minutes Chani Weinberg 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 Work Phone: [facility] Comment on above: Diabetes mellitus ty pe 1, controlled, insulin dependent ([facility]) (Primary Dx); Mixed hyperlipidemia; Need for pneumococcal 20-valent conjugate vaccination Start: 07-27-2024 End: 07-27-2024 ambulatory [facility] Start: 06-20-2024 End: 06-21-2024 Refill Chani Weinberg 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 Work Phone: [facility] Comment on above: Type 1 diabetes donna itus with hyperglycemia ([facility]) Start: 05-31-2024 End: 05-31-2024 Office outpatient visit 15 minutes Pratima Cortes [employer] Work Phone: [facility] Comment on above: Impacted cerumen, ri ght ear (Primary Dx); Diabetes mellitus type 1, controlled, insulin dependent ([facility]); Acute ear pain, right; Chronic sinusitis, unspecified location Start: 05-31-2024 End: 05-31-2024 ambulatory PRATIMA CORTES Not Available Start: 05-31-2024 End: 05-31-2024 Bamboo flowslamont Cortes BILLET SAWYER Work Phone: [facility] Start: 05-31-2024 End: 05-31-2024 Bamboo flowsheet Pratima Cortes BILLET SAWYER Work Phone: [facility] Start: 04-23-2024 End: 04-23-2024 ambulatory [facility] Start: 04-23-2024 Encounter for genera l adult medical examination without abnormal findings [facility] Start: 04-23-2024 End: 04-23-2024 Patient encounter procedure Chani Weinberg 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 Work Phone: [facility] Start: 04-23-2024 End: 04-23-2024 Periodic preventive med est patient 40-64yrs Chani Weinberg 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 Work Phone: [facility] Comment on above: Diabetes mellitus ty pe 1, controlled, insulin dependent ([facility]) (Primary Dx); Mixed hyperlipidemia; Prostate cancer screening; Encounter for annual wellness visit Start: 04-23-2024 End: 04-23-2024 ambulatory [facility] Start: 04-23-2024 Encounter for genera l adult medical examination without abnormal findings [facility] Start: 03-19-2024 End: 03-19-2024 Office outpatient visit 25 minutes [facility] BRANCH SERVICE SPECIALIST[employer] Work Phone: [facility] Comment on above: Diabetes mellitus ty pe 1, controlled, insulin dependent ([facility] HCC) (Primary Dx); Bilateral foot pain; Need for shingles vaccine; Need for immunization against influenza Start: 03-19-2024 End: 03-19-2024 ambulatory [facility] Start: 02-17-2024 End: 02-17-2024 Office outpatient visit 25 minutes [facility] 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 Work Phone: [facility] Comment on above: Diabetes mellitus ty pe 1, controlled, insulin dependent ([facility]) (Primary Dx); Numbness and tingling of right arm and leg Start: 02-17-2024 End: 02-17-2024 ambulatory [facility] Start: 01-30-2024 End: 01-30-2024 Office outpatient visit 40 minutes [facility] BRANCH SERVICE SPECIALISTFit [employer]itives Work Phone: [facility] Comment on above: Diabetes mellitus ty pe 1, controlled, insulin dependent ([facility]) (Primary Dx); Mixed hyperlipidemia; Contusion of right upper extremity, initial encounter; Need for shingles vaccine Start: 12-22-2023 End: 12-22-2023 Patient encounter procedure Kim ORTIZ [facility] Start: 12-16-2023 End: 12-18-2023 ambulatory ALEJANDRO UMAÑA [facility] Start: 12-16-2023 End: 12-18-2023 Subsequent hospital visit by physician Alejandro Umaña MD Work Phone: [facility] CT Scan Comment on above: Intractable tension- type headache, unspecified chronicity pattern Start: 12-16-2023 End: 12-16-2023 ambulatory ALEJANDRO UMAÑA Not Available Start: 12-09-2023 End: 12-09-2023 Office outpatient visit 40 minutes Chani Weinberg 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 Work Phone: [facility] Comment on above: Diabetes mellitus ty pe 1, controlled, insulin dependent ([facility]) (Primary Dx) Start: 10-16-2023 End: 10-16-2023 Office outpatient visit 25 minutes Chani Weinberg 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 Work Phone: [facility] Comment on above: History of elevated PSA (Primary Dx); Diabetes mellitus type 1, controlled, insulin dependent ([facility]) Start: 10-06-2023 End: 10-06-2023 Office outpatient visit 25 minutes Chas Roman DO Work Phone: [facility] Comment on above: Otalgia of right ear (Primary Dx) Start: 10-03-2023 End: 10-03-2023 ambulatory Alejandro Umaña Facility:[facility] Start: 10-03-2023 End: 10-03-2023 ambulatory MD Alejandro Umaña Work Phone: [facility] Work Phone: Start: 10-03-2023 End: 10-03-2023 Patient encounter procedure MD Alejandro Umaña Work Phone: [facility] [place] Work Phone: Start: 09-04-2023 End: 09-04-2023 Office outpatient visit 40 minutes Chani M Kierra 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 Work Phone: [facility] Comment on above: Diabetes mellitus ty pe 1, controlled, insulin dependent ([facility]) (Primary Dx); Mixed hyperlipidemia Start: 08-19-2023 Documentation procedure Tong Daugherty [facility] Work Phone: [facility] Start: 07-10-2023 End: 07-10-2023 Office outpatient visit 40 minutes Chani Weinberg 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 Work Phone: [facility] Comment on above: Diabetes mellitus ty pe 1, controlled, insulin dependent ([facility]) (Primary Dx); 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 Start: 06-06-2023 End: 06-06-2023 ambulatory CHANIMARÍA WEINBERG [facility] Start: 06-06-2023 End: 06-06-2023 Office outpatient visit 25 minutes Chani Weinberg 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 Work Phone: [facility] Comment on above: Diabetes mellitus ty pe 1, controlled, insulin dependent ([facility]) (Primary Dx) Start: 01-03-2023 End: 01-03-2023 ambulatory [facility] Start: 12-27-2022 End: 12-27-2022 ambulatory [facility] Start: 08-06-2022 End: 08-07-[address] KIM ORTIZ . Facility: Start: 10-30-2021 End: 10-30-2021 Subsequent hospital visit by physician Colton Romero MD Work Phone: [facility] Start: 10-18-2021 End: 10-22-2021 Subsequent hospital visit by physician Juhi Zuniga 4 [facility] Pre-Admit [facility] Start: 10-11-2021 End: 10-12-2021 ambulatory ADA [facility] Start: 10-11-2021 End: 10-11-2021 Subsequent hospital visit by physician Alejandro Umaña Other Phone: [facility] Start: 07-31-2020 End: 07-31-2020 Emergency department patient visit Sebastian Allen Work Phone: [facility] Comment on above: Abrasion of left low er extremity, initial encounter (Primary Dx) Start: 10-15-2019 End: 10-15-2019 Subsequent hospital visit by physician Alejandro BERMUDEZ Laboratory Start: 09-11-2019 End: 09-11-2019 Emergency department patient visit Freddie Feliz Work Phone: [facility] Comment on above: Abdominal pain, righ t lower quadrant (Primary Dx); Constipation, unspecified constipation type Start: 09-03-2019 End: 09-03-2019 Emergency department patient visit Tello Iqbal Calvin Work Phone: [facility] Comment on above: Urinary retention (P rimary Dx) Procedures Date Procedure Procedure Detail Performing Clinician Start: 03-26-2025 XR ABDOMEN 1V Generic E xternal Data Provider Start: 03-26-2025 US RENAL BI Generic Ex ternal Data Provider Start: 01-27-2025 Adult depression scr eening assessment Chani Weinberg 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 Work Phone: Start: 01-17-2025 PSA TOTAL+% FREE Generi c External Data Provider Start: 10-26-2024 Hemoglobin glycosyla eden a1c Chani Weinberg 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 Work Phone: Start: 07-27-2024 Hemoglobin glycosyla eden a1c Chani Weinberg 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 Work Phone: Start: 04-23-2024 Gluc bld gluc mntr d ev cleared fda spec home use Chani Weinberg 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 Work Phone: Start: 04-23-2024 Microalbumin [Mass/v olume] in Urine by Test strip Chani Weinberg 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 Work Phone: Start: 03-19-2024 Follow-up visit Follow-up CHANI WEINBERG Start: 01-30-2024 Hemoglobin glycosyla eden a1c Chani Weinberg 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 Work Phone: Start: 12-16-2023 Ct head/brain w/o co ntrast material Alejandro Umaña MD Work Phone: Start: 12-09-2023 Hemoglobin glycosyla eden a1c Chani Weinberg 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 Work Phone: Start: 09-04-2023 Hemoglobin glycosyla eden a1c Chani Weinberg 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 Work Phone: Start: 06-06-2023 Hemoglobin glycosyla eden a1c Chani Weinberg 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 Work Phone: Start: 06-06-2023 Microalbumin [Mass/v olume] in Urine by Test strip Chani Kierra 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 Work Phone: Start: 08-06-[address] MAURICE ORTIZ . Comment on above: Performed By: #### P SAD #### [facility] [address] [place] [address] Dr. Katherine Matute Start: 10-30-2021 Glucose blood reagen t strip Colton Romero MD Work Phone: Start: 10-30-2021 Colonoscopy Alejandro galan MD Work Phone: Start: 10-11-2021 Urine albumin quantitative Ada Akhtar CPNP Work Phone: Start: 10-11-2021 Microalbumin [Mass/v olume] in Urine by Test strip Chani Weinberg 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 Work Phone: Start: 10-15-2019 Iaad ia rotavirus Alejandro Umaña Other Phone: Start: 10-15-2019 Lactoferrin fecal qualitative Alejandro Umaña Other Phone: Start: 10-15-2019 SPECIMEN REJECTION Shobha Umaña Other Phone: Start: 09-11-2019 Urnls dip stick/tabl et rgnt auto w/o microscopy Freddie Feliz Work Phone: Start: 09-11-2019 Ct abdomen & pelvis w/contrast material Freddie Feliz Work Phone: Start: 09-11-2019 Assay of lipase rFeddie de leon Work Phone: Start: 09-11-2019 Blood count complete auto&auto difrntl wbc Freddie Feliz Work Phone: Start: 09-11-2019 C-reactive protein Frank Savagemiguelbuddy Work Phone: Start: 09-11-2019 Comprehensive metabo lic panel Freddie Tray Work Phone: Start: 09-11-2019 Lactate dehydrogenase ldh Freddie Savagemiguelbuddy Work Phone: Start: 09-03-2019 Urnls dip stick/tabl et rgnt auto w/o microscopy Tello Iqbal [employer] Work Phone: Start: 09-03-2019 Ct abdomen & pelvis w/o contrast material Tello Iqbal [employer] Work Phone: Start: 09-03-2019 Blood count complete auto&auto difrntl wbc Tello Iqbal [employer] Work Phone: Start: 09-03-2019 Comprehensive metabo lic panel Tello Iqbal [employer] Work Phone: Start: 07-17-2014 Colonoscopy Alejandro Dos Santosaydee galan Other Phone: Start: 05-18-2009 Cystoscopy Kim TAYLOR Colonoscopy Kim ANGELIQUE Plan of Treatment Date Care Activity Detail Author Start: 10-31-2031 Screening for malignant neoplasm of colon [facility] Start: 2027 Pneumococcal 0-64 years Vaccine (3 - PPSV23 or PCV20) Pneumococcal 0-64 years Vaccine (3 - PPSV23 or PCV20) [facility] Start: 2027 Pneumococcal 0-64 years Vaccine (3 of 3 - PPSV23 or PCV20) Pneumococcal 0-64 years Vaccine (3 of 3 - PPSV23 or PCV20) [facility] Start: 01-27-2026 Adult BMI Screening Adult BMI Screening [facility] Start: 01-27-2026 Depression Screening Depression Screening [facility] Start: 01-27-2026 Tobacco Screening Tobacco Screening [facility] Start: 10-26-2025 Adult BMI Screening Adult BMI Screening [facility] Start: 10-26-2025 COVID-19 Vaccine (5 - 2024-25 season) COVID-19 Vaccine ( season) [facility] Comment on above: Postponed from 02/15/2024 (Vaccine Not A vailable) Start: 10-26-2025 DTaP,Tdap and Td Vaccines (1 - Tdap) DTaP,Tdap and Td Vaccines (1 - Tdap) [facility] Comment on above: Postponed from 1981 (Patient Refus ed) Start: 10-26-2025 Tobacco Screening Tobacco Screening [facility] Start: 10-17-2025 Statin Use: Diabetic Statin Use: Diabetic [facility] Start: 07-27-2025 Adult BMI Screening Adult BMI Screening [facility] Start: 07-27-2025 Diabetic foot examination Diabetic Foot Exam [facility] Start: 07-27-2025 Tobacco Screening Tobacco Screening [facility] Start: 04-29-2025 End: 04-29-2025 Patient encounter procedure 04/29/2025 3:00 PM EST Office Visit [facility] [address] [place] [address] Chani Weinberg, 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 [address] [place] [address] [facility] Start: 04-29-2025 Hemoglobin A1c measurement Diabetes: Hemoglobin A1C [facility] Start: 04-23-2025 Adult BMI Screening Adult BMI Screening [facility] Start: 04-23-2025 Tobacco Screening Tobacco Screening [facility] Start: 04-23-2025 Urine screening for protein [facility] Start: 03-30-2025 End: 03-30-2025 Patient encounter procedure 03/30/2025 11:40 AM EDT Office Visit [facility] [address] [place] [address] Alejandro U[place]ña [place] [address] [place], [place] [id number] Arrived [facility] Comment on above: Arrived Start: 03-19-2025 Adult BMI Screening Adult BMI Screening [facility] Start: 03-19-2025 Diabetic foot examination Diabetic Foot Exam [facility] Start: 03-19-2025 Tobacco Screening Tobacco Screening [facility] Start: 02-16-2025 Adult BMI Screening Adult BMI Screening [facility] Start: 02-16-2025 Tobacco Screening Tobacco Screening [facility] Start: 02-14-2025 COVID-19 Vaccine ( season) COVID-19 Vaccine () [facility] Start: 02-14-2025 Influenza vaccination [facility] Start: 01-29-2025 Adult BMI Screening Adult BMI Screening [facility] Start: 01-29-2025 Tobacco Screening Tobacco Screening [facility] Start: 01-27-2025 End: 01-27-2025 Patient encounter procedure 01/27/2025 2:00 PM EDT Office Visit [facility] [address] [place] [address] Chani Weinberg, 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 [address] [place] [address] [facility] Start: 12-08-2024 Adult BMI Screening Adult BMI Screening [facility] Start: 12-08-2024 Tobacco Screening Tobacco Screening [facility] Start: 10-26-2024 End: 10-26-2024 Patient encounter procedure 10/26/2024 2:00 PM EDT Office Visit [facility] [address] [place] [address] Chani Weinberg, 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 [address] [place] [address] [facility] Start: 10-15-2024 Adult BMI Screening Adult BMI Screening [facility] Start: 10-15-2024 Tobacco Screening Tobacco Screening [facility] Start: 10-05-2024 Adult BMI Screening Adult BMI Screening [facility] Start: 09-03-2024 Adult BMI Screening Adult BMI Screening [facility] Start: 09-03-2024 Tobacco Screening Tobacco Screening [facility] Start: 07-27-2024 End: 07-27-2024 Patient encounter procedure 07/27/2024 2:00 PM EST Office Visit [facility] [address] [place] [id number] Chani Weinberg, BRANCH SERVICE [facility] [address] [place] [address] [facility] Start: 07-24-2024 Hemoglobin A1c measurement Diabetes: Hemoglobin A1C [facility] Start: 07-17-2024 Colon cancer screen colonoscopy Colon cancer screen colonoscopy [place], [place] Start: 07-17-2024 Screening for malignant neoplasm of colon [facility] Start: 07-10-2024 Adult BMI Screening Adult BMI Screening [facility] Start: 07-10-2024 Tobacco Screening Tobacco Screening [facility] Start: 06-06-2024 Adult BMI Screening Adult BMI Screening [facility] Start: 06-06-2024 Tobacco Screening Tobacco Screening [facility] Start: 06-06-2024 Urine screening for protein Urine Microalbumin [facility] Start: 05-31-2024 End: 05-31-2024 Patient encounter procedure 05/31/2024 4:00 PM EST Office Visit BRENDA LOPEZ [address] [place] [address] [place] [address] [place] [address] Arrived BRENDA LOPEZ Comment on above: Arrived Start: 05-04-2024 End: 05-04-2024 Patient encounter procedure 05/04/2024 4:00 PM EST Office Visit [facility] [address] [place] [address] Chani Weinberg, 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 [address] [facility] [place] [address] [facility] Start: 04-23-2024 End: 04-23-2024 Patient encounter procedure 04/23/2024 2:00 PM EST Office Visit [facility] [address] [place] [address] Chani Weinberg, 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 [address] [place] [address] [facility] Start: 03-26-2024 Administration of varicella zoster vaccine Zoster (Shingles) Vaccine (2 of 2) [facility] Start: 03-09-2024 End: 03-09-2024 Patient encounter procedure 03/09/2024 4:00 PM EDT Office Visit [facility] [address] [place] [address] Chani Weinberg, 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 [address] [place] [address] [facility] Start: 02-15-2024 COVID-19 Vaccine ( season) COVID-19 Vaccine ( season) [facility] Start: 02-15-2024 Influenza vaccination Influenza Vaccine [facility] Start: 02-14-2024 Diabetic foot examination Diabetic Foot Exam [facility] Start: 01-16-2024 End: 01-16-2024 Patient encounter procedure 01/16/2024 3:00 PM EDT Office Visit [facility] [address] [place] [address] Chani Weinberg, 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 [address] [place] [address] [facility] Start: 01-15-2024 Influenza vaccination Flu vaccine (#1) [facility] Start: 11-27-2023 GFR test (Diabetes, CKD 3-4, OR last GFR 15-59) GFR test (Diabetes, CKD 3-4, OR last GFR 15-59) [facility] Start: 10-16-2023 End: 10-16-2023 Patient encounter procedure 10/16/2023 3:00 PM EDT Office Visit [facility] [address] [place] [address] Chani Weinberg, 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 [address] [place] [address] [facility] Start: 10-03-2023 MR Prostate WO and W contrast IV [facility] Start: 10-03-2023 MR prostate wo/w con MR prostate wo/w con [facility] Start: 09-04-2023 End: 09-04-2023 Patient encounter procedure 09/04/2023 3:00 PM EDT Office Visit [facility] [address] [place] [address] Chani Weinberg, 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 [address] [place] [address] [facility] Start: 05-23-2023 Glaucoma screening Diabetes: Retinopathy Screening [facility] Start: 02-14-2023 Influenza vaccination Influenza Vaccine [facility] Start: 10-11-2022 Urine screening for protein [facility] Start: 10-03-2022 Lipid panel Lipids [facility] Start: 2022 Respiratory Syncytial Virus (RSV) or age 60 yrs+ (1 - 1-dose 60+ series) Respiratory Syncytial Virus (RSV) or age 60 yrs+ (1 - 1-dose 60+ series) [facility] Start: 02-14-2022 Influenza vaccination Flu vaccine (Season Ended) [facility] Start: 10-30-2021 End: 10-30-2021 Colonoscopy flx dx w/collj spec when pfrmd COLORECTAL CANCER SCREENING, NOT HIGH RISK SCREEN FOR COLON CANCER 10/30/2021 12:05 PM EDT [facility] Start: 10-30-2021 End: 10-30-2021 Admission to same day surgery center 10/30/2021 Surgery IP Unit Colton Romero MD [address] [facility] [address] [place] [address] COLORECTAL CANCER SCREENING, NOT HIGH RISK [facility] Comment on above: COLORECTAL CANCER SCREENING, NOT HIGH RI SK Start: 10-30-2021 End: 10-30-2021 Colonoscopy flx dx w/collj spec when pfrmd COLORECTAL CANCER SCREENING, NOT HIGH RISK SCREEN FOR COLON CANCER 10/30/2021 7:30 AM EDT [facility] Start: 10-30-2021 Subsequent hospital visit by physician 10/30/2021 Hospital Encounter IP Unit Colton Romero MD [address] [facility] [address] [place] [address] [facility] Start: 06-19-2021 DTaP/Tdap/Td vaccine (1 - Tdap) DTaP/Tdap/Td vaccine (1 - Tdap) [facility] [place] Comment on above: Postponed from 1981 (Patient Refus ed) Start: 06-19-2021 Hepatitis C screen Hepatitis C screen [facility] Comment on above: Postponed from 1962 (Patient Refus ed) Start: 06-19-2021 Hepatitis C screening Hepatitis C screen [facility] Comment on above: Postponed from 1962 (Patient Refus ed) Start: 06-19-2021 HIV screen HIV screen [facility] Comment on above: Postponed from 1977 (Patient Refus ed) Start: 06-19-2021 HIV screening HIV screen [place] Comment on above: Postponed from 1977 (Patient Refus ed) Start: 03-02-2021 COVID-19 Vaccine (3 - Booster for Pfizer series) COVID-19 Vaccine (3 - Booster for Pfizer series) [facility] Start: 02-15-2020 Influenza vaccination Flu vaccine (Season Ended) [place] Start: 02-14-2019 Influenza vaccination Flu vaccine (#1) [place] Start: 08-22-2017 Pneumococcal 0-64 years Vaccine (2 - PPSV23 or PCV20) Pneumococcal 0-64 years Vaccine (2 - PPSV23 or PCV20) [facility] Start: 10-17-2016 Pneumococcal 0-64 years Vaccine (1 of 1 - PPSV23) Pneumococcal 0-64 years Vaccine (1 of 1 - PPSV23) [place] Start: 2012 Administration of varicella zoster vaccine Zoster (Shingles) Vaccine (1 of 2) [facility] Start: 2012 Shingles Vaccine (1 of 2) Shingles Vaccine (1 of 2) [facility] Start: 2007 Screening for malignant neoplasm of colon [facility] Start: 1981 DTaP,Tdap and Td Vaccines (1 - Tdap) DTaP,Tdap and Td Vaccines (1 - Tdap) [facility] Start: 1981 DTaP/Tdap/Td vaccine (1 - Tdap) DTaP/Tdap/Td vaccine (1 - Tdap) [facility] Start: 1981 Hepatitis B vaccine (1 of 3 - Risk 3-dose series) Hepatitis B vaccine (1 of 3 - Risk 3-dose series) [facility] Start: 1980 Diabetic microalbuminuria test Diabetic microalbuminuria test [place] Start: 1980 Diabetic retinal exam Diabetic retinal exam [facility] Start: 1980 Glaucoma screening Diabetic retinal exam [facility] [facility] Start: 1980 Hepatitis C screening Hepatitis C screen [facility] Start: 1980 Urine screening for protein Diabetic microalbuminuria test [facility] Start: 1977 HIV screening HIV screen [facility] Start: 1974 Depression Screen Depression Screen [facility]: 1974 Depression Screening Depression Screening [facility] Start: 1972 [object Object] Diabetic foot exam [place], [place] Start: 1972 A1C test (Diabetic or Prediabetic) A1C test (Diabetic or Prediabetic) [place] Start: 1972 Diabetic foot examination Diabetic foot exam [facility] Start: 1972 Diabetic retinal exam Diabetic retinal exam [place], [place] Start: 1972 HbA1c (Bld) [Mass fraction] A1C test (Diabetic or Prediabetic) [place] Start: 1972 Hemoglobin A1c measurement A1C test (Diabetic or Prediabetic) [facility] Start: 1972 Lipid panel Lipid screen [place] Start: 1972 Lipid screen Lipid screen [place] Start: 1967 COVID-19 Vaccine (1) COVID-19 Vaccine (1) [facility] Start: 1962 Glaucoma screening Diabetic Ophthalmology Exam [facility] Start: 1962 Screening for malignant neoplasm of colon [facility] Start: 1962 Statin Use: Diabetic Statin Use: Diabetic [facility] End: 10-15-2019 C. difficile toxin Molecular C. difficile toxin Molecular Microbiology Routine Once for 1 Occurrences starting 10/15/2019 until 10/15/2019 [place] Comment on above: Once for 1 Occurrences starting 10/15/19 20 until 10/15/2019 C. difficile toxin Molecular C. difficile toxin Molecular Microbiology Routine 10/15/2019 7:30 AM EDT [place] End: 06-06-2024 CBC W Auto Differential panel - Blood CBC auto differential Lab Routine Diabetes mellitus type 1, controlled, insulin dependent ([facility]) 1 Occurrences starting 06/06/2023 until 06/06/2024 [employer]OS[facility] Work Phone: Comment on above: 1 Occurrences starting 06/06/2023 until 06/06/2024 End: 04-23-2025 CBC W Auto Differential panel - Blood CBC auto differential Lab Routine Diabetes mellitus type 1, controlled, insulin dependent ([facility]) Encounter For Annual Wellness Visit 1 Occurrences starting 04/23/2024 until 04/23/2025 [employer] Work Phone: Comment on above: 1 Occurrences starting 04/23/2024 until 04/23/2025 CBC W Auto Different ial panel - Blood CBC auto differential Lab Routine Diabetes mellitus type 1, controlled, insulin dependent ([facility]) 01/27/2025 2:13 PM EDT [facility] Work Phone: End: 06-06-2024 Comprehensive metabolic 2000 panel - Serum or Plasma Comprehensive metabolic panel Lab Routine Diabetes mellitus type 1, controlled, insulin dependent ([facility]) 1 Occurrences starting 06/06/2023 until 06/06/2024 [email or web address] Comment on above: 1 Occurrences starting 06/06/2023 until 06/06/2024 End: 04-23-2025 Comprehensive metabolic 2000 panel - Serum or Plasma Comprehensive metabolic panel Lab Routine Diabetes mellitus type 1, controlled, insulin dependent ([facility]) Encounter For Annual Wellness Visit 1 Occurrences starting 04/23/2024 until 04/23/2025 [email or web address] Comment on above: 1 Occurrences starting 04/23/2024 until 04/23/2025 Comprehensive metabo lic 2000 panel - Serum or Plasma Comprehensive metabolic panel Lab Routine Diabetes mellitus type 1, controlled, insulin dependent ([facility]) 01/27/2025 2:[address] [email or web address] [address] ABDOMEN PELVIS WO CONTRAST Additional Contrast? None CT ABDOMEN PELVIS WO CONTRAST Additional Contrast? None Imaging STAT 09/03/2019 2:52 PM EDT [facility] End: 06-06-2024 Ferritin [Mass/volume] in Serum or Plasma Ferritin Lab Routine Diabetes mellitus type 1, controlled, insulin dependent ([facility]) 1 Occurrences starting 06/06/2023 until 06/06/2024 [email or web address] Comment on above: 1 Occurrences starting 06/06/2023 until 06/06/2024 Ferritin [Mass/volum e] in Serum or Plasma Ferritin Lab Routine Diabetes mellitus type 1, controlled, insulin dependent ([facility]) 01/27/2025 2:13 PM EDT [email or web address] End: 10-15-2019 Gastrointestinal Panel, Molecular Gastrointestinal Panel, Molecular Microbiology Routine Once for 1 Occurrences starting 10/15/2019 until 10/15/2019 [place], [place] Comment on above: Once for 1 Occurrences starting 10/15/19 20 until 10/15/2019 Gastrointestinal Biggs el, Molecular Gastrointestinal Panel, Molecular Microbiology Routine 10/15/2019 7:30 AM EDT [place], [place] End: 10-15-2019 Giardia / Cryptosporidum antigens Giardia / Cryptosporidum antigens Lab Routine Once for 1 Occurrences starting 10/15/2019 until 10/15/2019 [place], [place] Comment on above: Once for 1 Occurrences starting 10/15/19 20 until 10/15/2019 Giardia / Cryptospor idum antigens Giardia / Cryptosporidum antigens Lab Routine 10/15/2019 7:30 AM EDT [place] End: 04-23-2025 Hemoglobin A1c/Hemoglobin.total in Blood Hemoglobin A1c Lab Routine Diabetes mellitus type 1, controlled, insulin dependent ([facility]) Encounter For Annual Wellness Visit 1 Occurrences starting 04/23/2024 until 04/23/2025 [email or web address] Comment on above: 1 Occurrences starting 04/23/2024 until 04/23/2025 Hemoglobin A1c/Hemoglobin.total in Blood Hemoglobin A1c Lab Routine Diabetes mellitus type 1, controlled, insulin dependent ([facility]) 01/27/2025 2:13 PM EDT [email or web address] End: 06-06-2024 Lipid 1996 panel - Serum or Plasma Lipid profile Lab Routine Diabetes mellitus type 1, controlled, insulin dependent ([facility]) 1 Occurrences starting 06/06/2023 until 06/06/2024 [email or web address] Comment on above: 1 Occurrences starting 06/06/2023 until 06/06/2024 End: 04-23-2025 Lipid 1996 panel - Serum or Plasma Lipid profile Lab Routine Diabetes mellitus type 1, controlled, insulin dependent ([facility]) Encounter For Annual Wellness Visit 1 Occurrences starting 04/23/2024 until 04/23/2025 [email or web address] Comment on above: 1 Occurrences starting 04/23/2024 until 04/23/2025 Lipid 1996 panel - S mihai or Plasma Lipid profile Lab Routine Diabetes mellitus type 1, controlled, insulin dependent ([facility]) Mixed hyperlipidemia 01/27/2025 2:13 PM EDT [email or web address] End: 04-23-2025 Lipoprotein a [Mass/volume] in Serum or Plasma Lipoprotein(a), S Lab Routine Diabetes mellitus type 1, controlled, insulin dependent ([facility]) Encounter For Annual Wellness Visit 1 Occurrences starting 04/23/2024 until 04/23/2025 [email or web address] Comment on above: 1 Occurrences starting 04/23/2024 until 04/23/2025 End: 06-06-2024 Magnesium [Mass/volume] in Serum or Plasma Magnesium Lab Routine Diabetes mellitus type 1, controlled, insulin dependent ([facility]) 1 Occurrences starting 06/06/2023 until 06/06/2024 [email or web address] Comment on above: 1 Occurrences starting 06/06/2023 until 06/06/2024 Magnesium [Mass/volu me] in Serum or Plasma Magnesium Lab Routine Diabetes mellitus type 1, controlled, insulin dependent ([facility]) 01/27/2025 2:13 PM EDT [email or web address] End: 06-06-2024 Microalbumin - Albumin: Creatinine Urine Ratio Microalbumin - Albumin: Creatinine Urine Ratio Lab Routine Diabetes mellitus type 1, controlled, insulin dependent ([facility]) 1 Occurrences starting 06/06/2023 until 06/06/2024 [email or web address] Comment on above: 1 Occurrences starting 06/06/2023 until 06/06/2024 End: 04-23-2025 Microalbumin - Albumin: Creatinine Urine Ratio Microalbumin - Albumin: Creatinine Urine Ratio Lab Routine Diabetes mellitus type 1, controlled, insulin dependent ([facility]) Encounter For Annual Wellness Visit 1 Occurrences starting 04/23/2024 until 04/23/2025 [email or web address] Comment on above: 1 Occurrences starting 04/23/2024 until 04/23/2025 Prostatic specific antigen screen Prostatic specific antigen screen Lab Routine Encounter for screening for malignant neoplasm of prostate 01/27/2025 2:13 PM EDT [email or web address] End: 04-24-2025 Prostatic specific antigen, diagnostic Prostatic specific antigen, diagnostic Lab Routine Prostate cancer screening Encounter For Annual Wellness Visit 1 Occurrences starting 04/23/2024 until 04/24/2025 [email or web address] Comment on above: 1 Occurrences starting 04/23/2024 until 04/24/2025 End: 06-06-2024 TSH with Reflex TSH with Reflex Lab Routine Diabetes mellitus type 1, controlled, insulin dependent ([facility]) 1 Occurrences starting 06/06/2023 until 06/06/2024 [facility] Comment on above: 1 Occurrences starting 06/06/2023 until 06/06/2024 End: 04-23-2025 TSH with Reflex TSH with Reflex Lab Routine Diabetes mellitus type 1, controlled, insulin dependent ([facility]) Encounter For Annual Wellness Visit 1 Occurrences starting 04/23/2024 until 04/23/2025 [facility] Comment on above: 1 Occurrences starting 04/23/2024 until 04/23/2025 End: 06-06-2024 Vitamin D 25 hydroxy Vitamin D 25 hydroxy Lab Routine Diabetes mellitus type 1, controlled, insulin dependent ([facility]) 1 Occurrences starting 06/06/2023 until 06/06/2024 [facility] Comment on above: 1 Occurrences starting 06/06/2023 until 06/06/2024 Immunizations Immunization Date Immunization Notes Care Provider Mariel ron 07-27-2024 Pneumococcal Conjuga te 20-valent Chani Weinberg 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 Work Phone: [facility] 07-27-2024 Immunization, In Clinic,; Translations: [Drug or medicament (substance)] Chani Weinberg 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 Work Phone: [facility] 03-19-2024 influenza, seasonal, injectable, preservative free Chani Weinberg 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 Work Phone: [facility] 03-19-2024 zoster vaccine recombinant Chani Weinberg 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 Work Phone: [facility] 03-19-2024 Immunization, In Clinic,; Translations: [Drug or medicament (substance)] Chani Weinberg 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 Work Phone: [facility] 03-19-2024 influenza virus vaccine, unspecified formulation Chani Weinberg 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 Work Phone: [facility] 01-30-2024 zoster vaccine recombinant Chani Weinberg 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 Work Phone: [facility] 01-30-2024 Immunization, In Clinic,; Translations: [Drug or medicament (substance)] Chani Weinberg 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 Work Phone: [facility] 01-30-2024 zoster vaccine, unspecified formulation Chani Weinberg 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 Work Phone: [facility] 04-16-2023 influenza virus vaccine, unspecified formulation Kim ORTIZ [facility] 04-01-2022 influenza, injectabl e, quadrivalent, preservative free Alejandro Umaña MD Work Phone: [facility] 03-16-2021 SARS-CoV-2 (COVID-19 ) Ad26 vaccine, recombinant Kim ORTIZ [facility] 03-13-2021 influenza, injectabl e, quadrivalent, preservative free Alejandro Umaña MD Work Phone: [facility] 08-14-2020 SARS-CoV-2 (COVID-19 ) Ad26 vaccine, recombinant Kim ORTIZ [facility] 02-28-2020 influenza, injectabl e, quadrivalent, preservative free Chani Weinberg 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 Work Phone: [facility] 02-28-2020 influenza virus vaccine, unspecified formulation Chani Weinberg 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 Work Phone: [facility] 08-22-2016 pneumococcal conjuga te vaccine, 13 valent [facility] 03-05-2011 pneumococcal polysaccharide vaccine, 23 valent Chani Weinberg 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 Work Phone: [facility] Payers Date Payer Category Payer Self-pay 2023 Unknown [id number] 2020 Unknown GENERIC M[employer] G[employer] [facility] [id number] 2020-Present [id number] 2019 Private Health Insurance [id number] 2017 Commercial Managed C are - PPO [employer] [id number] 2017 Unknown [employer] [place] SUPERMED [id number] 2017-Present [phone] [place] [id number] 2015 Unknown MEDICAL M[employer]UAL M ED[employer] M[employer]UAL [address] xxxxxxxxxxxx 2015-Present [phone] [place] [phone] xxxxxxxxxxxx [id number] .[id number] 1962 Unknown [id number] 2.16.840.1.354829.3.579.2 .175 1962 Unknown [id number] 2.16.840.1.854398.3.579.2 .593 1962 Unknown [id number] 2.16.840.1.386323.3.579.2 .176 1962 Unknown [id number] 2.16.840.1.055941.3.579.2 .176 1962 Unknown [id number] 2.16.840.1.024247.3.579.2 .176 1962 Unknown [id number] 2.16.840.1.973641.3.579.2 .1286 1962 Unknown [id number] 2.16.840.1.744321.3.579.2 .1286 1962 Unknown [id number] 2.16.840.1.322912.3.579.2 .1259 1962 Unknown [id number] 2.16.840.1.723675.3.579.2 .1259 1962 Unknown [id number] 2.16.840.1.937595.3.579.2 .727 1962 Unknown [id number] 2.16.840.1.549812.3.579.2 .727 1962 Unknown [id number] 2.16.840.1.559050.3.579.2 .1286 1962 Unknown [id number] 2.16.840.1.033158.3.579.2 .1286 1962 Unknown [id number] 2.16.840.1.296297.3.579.2 .1286 1962 Unknown [id number] 2.16.840.1.982603.3.579.2 .1286 1962 Unknown [id number] 2.16.840.1.265058.3.579.2 .1286 1962 Unknown [id number] 2.16.840.1.753486.3.579.2 .1286 1962 Unknown [id number] 2.16.840.1.123530.3.579.2 .1286 1962 Unknown [id number] 2.16.840.1.630805.3.579.2 .1286 1959 Unknown [id number] 1.2.840.339857.1.13.239.2 .7.3.586471.315 Unknown [id number] 2.16.840.1.225312.3.579.2 .531 Social History Date Type Detail Facility Start: 09-11-2019 End: 12-25-2022 Tobacco smoking status NHIS Never smoker [facility] Start: 09-11-2019 End: 03-30-2025 Alcohol intake Current drinker of alcohol (finding) [place], [place] Start: 09-28-2013 Alcohol Comment occassional [place], [place] Start: 1960 Sex Assigned At Not on file M [place] Start: 07-31-2020 End: 12-25-2022 Tobacco use and exposure Never used [facility] [employer] Work Phone: Start: 10-08-2021 End: 10-30-2021 Exposure to SARS-CoV-2 (event) Not sure [facility] [employer] Work Phone: Start: 1960 Sex Assigned At Male F [facility] Start: 11-25-2022 End: 03-30-2025 History of Social function [employer] Start: 11-25-2022 End: 03-30-2025 Alcohol Use Disorder Identification Test - Consumption [AUDIT-C] [employer] How often to you hav e a drink containing alcohol? Monthly or less [employer] How many standard dr inks containing alcohol do you have on a typical day? 1 or 2 [employer] How often do you hav e 6 or more drinks on 1 occasion? Less than monthly [employer] Start: 08-28-2022 Read-Only, Retired: Physical Abuse Denies [facility] Start: 09-04-2019 Gender identity Identifies as male gender (finding) [employer] Start: 09-04-2019 Sexual orientation Bisexual (finding ) [employer] Start: 12-25-2022 Alcohol Comment 6+ less than monthly [facility] Start: 07-26-2022 Alcohol Comment Occ. 1-2 on weekends [facility] Start: 01-17-2015 Sex Male (finding) [facility] Sexual Orientation [facility] NEGATED: Highlighted rowStart: BRITT History of tobacco use Passive smoker [facility] Functional Status Date Assessment Result Facility 12-22-2023 Functional Status N/A [facility] Clinical Notes 10-18-2021 to 03-30-2025 Alejandro Umaña MD - 03/30/2025 11:40 AM Santana Vasquez CMA - 01/27/2025 7:09 PM Ben Weinberg APRN-SARAH - 01/27/2025 2:00 PM EDTPatient InstructionsPatient InstructionsInstructions Note Date & Type Note Facility 03-30-2025 History of Present illness Narrative Images from [...] the pain continued and he went to [facility] on 03/27/25 and they did labs, xray, [...] the sees I think we will be useful as well as I am going to start [...] Continuous Blood Gluc Sensor (Dexcom G6 Sensor) [facility] [place] No dose, route, or frequency recorded. fluticasone [...] Cuff Size: Adult) Pulse 71 Temp 97.5 F Resp 18 Ht 5' 10 Wt 154 lb SpO2 99% BMI 22.10 kg/m Smoking Status Never BSA 1.86 m Physical Exam Constitutional: Appearance: Normal appearance. HENT: [...] Dust Mite Extract documented in this encounter [facility] 01-27-2025 History of Present illness Narrative Mychart read [facility]27[facility] History of Present illness Narrative Images from the original note were not included. [facility] [place] [address] OFFICE: FAX: [phone] Patient: Sd Cardozo Date of : 1960 Encounter Date: 01/27/2025 Subjective Chief Complaint Chief Complaint Patient presents with Follow-up History of Present Illness Sd Cardozo is a 64 y.o. male who has a past medical history of Hyperlipidemia, Neuromuscular disorder ([facility]), and Type 1 diabetes ([facility]). Sd is an established patient [...] night. Sd recently saw his urologist, at [facility] for a prostate check-up. His PSA level [...] Medical History: Diagnosis Date Hyperlipidemia Neuromuscular disorder ([facility]) Type 1 diabetes ([facility]) Past Surgical History: Procedure Laterality Date KIDNEY [...] Interpersonal Safety: Unknown (08/07/2023) Received from [facility] [place] Safety [facility] Environment Fear [...] 120 g 11 blood-glucose meter,continuous (DEXCOM G6 CHICKEN STUFFER) misc 1 Device by miscellaneous route continuously. 1 each 0 blood-glucose meter,continuous (DEXCOM G7 CHICKEN STUFFER) misc Inject 1 each under the skin [...] and atraumatic. Nose: Nose normal. Mouth/Throat: Lips: [place]. Mouth: Mucous membranes are moist. Eyes: General: [...] Diabetes mellitus type 1, controlled, insulin dependent ([facility]) - CBC auto differential - [...] Jin 01/27/25 1455 documented in this encounter [facility] 01-27-2025 Instructions DURAN Jin - 01/27/2025 2:00 [...] good breath technique as instructed - Consider bgqi-ilx-tkgckny Mucinex to help thin secretions and make coughing easier Tests and Imaging: - Get a chest X-ray at [facility] across the [address] on [facility] - Complete blood work, including: - Cholesterol panel - A1c - Urine microalbumin Follow-up: - Return for a follow-up appointment in 3 months - Continue follow-up with your urologist as recommended Please don't hesitate to reach out if you have any questions or if your symptoms worsen. Wishing you a guallpa recovery. Best Regards, DURAN [facility] documented in this encounter [facility] 01-24-2025 Hospital Discharge instructions Patient Education 01/24/2025 [...] treatment? Where to find more information [employer] [place] [employer]: www.cancer.org [employer] [employer]: www.auanet.org Contact a health care [...] provider. Document Revised: 11/26/2021 Document Reviewed: 11/26/2021 [email or web address] Patient Education 2023 [facility]. Follow Up Care 12/22/2023 15:30:50 With:ANGELIQUE LUNDBERG, Kim Mcgowan, URL Address: [address] [place] [phone] When: Unknown Comments:6 mos w/ PSA [facility] 01-24-2025 Note Patient Education Oncology Prostate Cancer [...] Where to find more information ??? [employer] [place] [employer]: www.cancer.org ??? [employer] [employer]: www.auanet.org Contact a health care [...] The prostate gland (more content not included)... [facility] 12-09-2024 History of Present illness Narrative Images from the original note were not included. [facility] [address] [place] [address] OFFICE: FAX: [phone] Patient: Sd Cardozo Date of : 1960 Encounter Date: 12/09/2024 Subjective Chief Complaint Chief Complaint Patient presents with Earache Rt ear x 2days stabbing pain History of Present Illness Sd Cardozo, 64 y.o. years old, presents to [facility] for an acute/urgent visit [...] 120 g 11 blood-glucose meter,continuous (DEXCOM G6 CHICKEN STUFFER) misc 1 Device by miscellaneous route continuously. 1 each 0 blood-glucose meter,continuous (DEXCOM G7 CHICKEN STUFFER) misc Inject 1 each under the skin [...] or erythematous. Nose: Nose normal. Mouth/Throat: Lips: [place]. Mouth: Mucous membranes are moist. Pulmonary: Effort: [...] past medical history of Hyperlipidemia, Neuromuscular disorder ([facility]), and Type 1 diabetes ([facility]). here with 1. Non-recurrent acute [...] Jin 12/09/24 1215 documented in this encounter [email or web address] 12-09-2024 Instructions DURAN Jin - 12/09/2024 11:30 AM EDT Dear Sdleena Cardozo, Thank you for visiting today. Here [...] Claritin (antihistamine) daily Home Care: - Use gijp-vze-zzwtcgi decongestants like Claritin-D or Mucinex if needed Follow-up: - Contact the office if ear pain gets worse or lasts more than 3-4 days Please reach out if you have any questions or concerns. Best Regards, DURAN [facility] documented in this encounter [email or web address] 10-26-2024 History of Present illness Narrative Images from the original note were not included. [facility] [address] [place] [address] OFFICE: FAX: [phone] Patient: Sd Cardozo Date of : 1960 Encounter Date: 10/26/2024 Subjective Chief Complaint Chief Complaint Patient presents with Diabetes History of Present Illness Sd Cardozo is a 64 y.o. male who has a past medical history of Hyperlipidemia, Neuromuscular disorder ([facility]), and Type 1 diabetes ([facility]). Sd is an established patient last seen [...] Medical History: Diagnosis Date Hyperlipidemia Neuromuscular disorder ([facility]) Type 1 diabetes ([facility]) Past Surgical History: Procedure Laterality Date KIDNEY [...] Interpersonal Safety: Unknown (08/07/2023) Re[facility] from [facility] Safety & Environment Fear of Current or [...] 120 g 11 blood-glucose meter,continuous (DEXCOM G6 CHICKEN STUFFER) misc 1 Device by miscellaneous route continuously. 1 each 0 blood-glucose meter,continuous (DEXCOM G7 CHICKEN STUFFER) misc Inject 1 each under the skin [...] and atraumatic. Nose: Nose normal. Mouth/Throat: Lips: [place]. Mouth: Mucous membranes are moist. Eyes: General: [...] Diabetes mellitus type 1, controlled, insulin dependent ([facility]) - POCT Hemoglobin A1c 2. [...] Plan: - Patient to follow up with pipe jeeper for further evaluation - Monitor symptoms and [...] daily of an unspecified medication, likely an ximb-lyj-dkjvlyw supplement. Plan: - Continue current blood pressure [...] Jin 10/26/24 1511 documented [facility] 10-26-2024 Instructions DURAN Jin - 10/26/2024 2:00 [...] carb intake. - Follow-up: - See your pipe jeeper as scheduled. - Eye Care: - Get a release of records from [facility] for your recent eye exam. - Lifestyle: - Continue staying active and exercising. - Monitoring: - Keep track of any unusual symptoms, especially abdominal pain on the right side. - Monitor for any vision changes or new floaters. Please reach out if you have any questions or concerns. Best Regards, DURAN [facility] documented in this encounter [email or web address] 07-27-2024 History of Present illness Narrative Images from the original note were not included. [facility] [address] [place] [address] OFFICE: FAX: [phone] Patient: dS Cardozo Date of : 1960 Encounter Date: 07/27/2024 Subjective Chief Complaint Chief Complaint Patient presents with Follow-up History of Present Illness Sd Cardozo is a 64 y.o. male who has a past medical history of Hyperlipidemia, Neuromuscular disorder ([facility]), and Type 1 diabetes ([facility]). Sd presents today as an established patient [...] Medical History: Diagnosis Date Hyperlipidemia Neuromuscular disorder ([facility]) Type 1 diabetes ([facility]) Past Surgical History: Procedure Laterality Date KIDNEY [...] Interpersonal Safety: Unknown (08/07/2023) Re[facility] from [facility] [place] Safety & Environment Fear [...] 120 g 11 blood-glucose meter,continuous (DEXCOM G6 CHICKEN STUFFER) misc 1 Device by miscellaneous route continuously. 1 each 0 blood-glucose meter,continuous (DEXCOM G7 CHICKEN STUFFER) misc Inject 1 each under the skin [...] Head: Normocephalic. Nose: Nose normal. Mouth/Throat: Lips: [place]. Mouth: Mucous membranes are moist. Cardiovascular: Pulses: [...] Diabetes mellitus type 1, controlled, insulin dependent ([facility]) - DIABETES FOOT EXAM - POCT [...] electronic or other health record Chani Weinberg, 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 This note was created with the assistance of a speech-recognition program. Although the intention is to generate a document that actually reflects the content of the visit, no guarantees can be provided that every mistake has been identified and corrected by editing. DURAN Jin 07/27/24 1615 documented [facility] this encounter [facility] 07-27-2024 Instructions DURAN Jin - 07/27/2024 [...] [facility] documented in this encounter [facility] 05-31-2024 History of Present illness Narrative Images [...] (around 06/04/2024). documented in this encounter [facility] 04-23-2024 History of Present illness Narrative Images from the original note were not included. [facility] [address] [place] [address] OFFICE: FAX: [phone] Patient: Sd Cardozo Date of : 1960 Encounter Date: 04/23/2024 Subjective Chief Complaint Chief Complaint Patient presents with Annual Exam History of Present Illness Sd Cardozo is a 63 y.o. male who has a past medical history of Hyperlipidemia, Neuromuscular disorder (CMS-HCC), and Type 1 diabetes ([facility]). Health Maintenance: DEXA scan: Not applicable [...] Medical History: Diagnosis Date Hyperlipidemia Neuromuscular disorder ([facility]) Type 1 diabetes ([facility]) Past Surgical History: Procedure Laterality Date KIDNEY [...] Interpersonal Safety: Unknown (08/07/2023) Received from [facility] [place] Safety & Environment Fear [...] 120 g 11 blood-glucose meter,continuous (DEXCOM G6 CHICKEN STUFFER) misc 1 Device by miscellaneous route continuously. 1 each 0 blood-glucose meter,continuous (DEXCOM G7 CHICKEN STUFFER) misc Inject 1 each under the skin [...] Diabetes mellitus type 1, controlled, insulin dependent ([facility]) - CBC auto differential; Future [...] Jin 04/23/24 1504 documented in this encounter [facility] 04-23-2024 Instructions DURAN Jin - 04/23/2024 [...] can view your upcoming lab results on LookAcross. Best regards, DURAN [facility] documented in this encounter [facility] 03-19-2024 History of Present illness Narrative Images from the original note were not included. [facility] [address] [place] [address] OFFICE: FAX: [phone] Patient: Sd Cardozo Date of : 1960 Encounter Date: 03/19/2024 Subjective Chief Complaint Chief Complaint Patient presents with Follow-up History of Present Illness Sd Cardozo is a 63 y.o. male who has a past medical history of Hyperlipidemia, Neuromuscular disorder ([facility]), and Type 1 diabetes ([facility] Sd is an established patient last seen [...] Medical History: Diagnosis Date Hyperlipidemia Neuromuscular disorder ([facility]) Type 1 diabetes ([facility]) Past Surgical History: Procedure Laterality Date KIDNEY [...] Interpersonal Safety: Unknown (08/07/2023) Received from [facility], [facility] Safety & Environment Fear of Current or Ex-Partner: Not on file Emotionally Abused: Not on file Physically Abused: Not on file Sexually Abused: Not on file Physically or Sexually Abused: Not on file Housing Instability: Not on file Allergies and Current Medications Allergies Allergen Reactions House Dust Current Outpatient Medications Medication Sig Dispense Refill blood-glucose meter,continuous (DEXCOM G6 CHICKEN STUFFER) misc 1 Device by miscellaneous route continuously. 1 each 0 blood-glucose meter,continuous (DEXCOM G7 CHICKEN STUFFER) misc Inject 1 each under the skin [...] Head: Normocephalic. Nose: Nose normal. Mouth/Throat: Lips: [place]. Mouth: Mucous membranes are moist. Cardiovascular: Pulses: [...] Diabetes mellitus type 1, controlled, insulin dependent ([facility]) - DIABETES FOOT EXAM 2. [...] This Encounter Procedures Zoster Subunit FLU VACCINE (6MOS UP)(PF) 45 MCG(15MCG X3)/0.5 ML IM [...] Prescribe a compounded cream [facility] for potential nerve inflammation and neuropathic pain. Instruct Sd to apply the cream up to four times a day, focusing on nighttime application. Reassess the effectiveness of the cream during the next visit. Toe Discomfort and Bunion Assessment: Sd reports a history of toe fracture and occasional pain in the affected toe. Plan: Recommend [id number] non-steroidal anti-inflammatory creams such as Gluconect or [...] Jin 03/19/24 1516 documented in this encounter [email or web address] 03-19-2024 Instructions DURAN Jin - 03/19/2024 2:00 PM EDT Thank you for visiting us today. We appreciate your commitment to maintaining and improving your health. Here are the bedoya instructions and recommendations from today's consultation: - Medications for Foot Discomfort: - Consider using Voltaren cream for arthritic pain. - [facility] will contact you regarding a compounded [...] supporting your health. documented in this encounter [email or web address] 02-17-2024 History of Present illness Narrative Images from the original note were not included. COUNTS INCLUDE 234 BEDS AT [facility] [place] [address] OFFICE: FAX: [phone] Patient: Sd Cardozo Date of : 1960 Encounter Date: 02/17/2024 Subjective Chief Complaint Chief Complaint Patient presents with Hand Pain Tingling x3 days in right hand going up to elbow. Taking Asprin and mucus le relaxer History of Present Illness Sd Cardozo, 63 y.o. years old, presents to [facility] by [employer] for an acute/urgent visit with chief complaint [...] muscle relaxers and aspirin. 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 1 each 0 blood-glucose meter,continuous (DEXCOM G7 CHICKEN STUFFER) misc Inject 1 each under the skin [...] well-groomed and normal weight. HENT: Mouth/Throat: Lips: [place]. Mouth: Mucous membranes are moist. Musculoskeletal: Right [...] past medical history of Hyperlipidemia, Neuromuscular disorder ([facility]), and Type 1 diabetes ([facility] here with 1. Diabetes mellitus type 1, controlled, insulin dependent ([facility]) 2. Numbness and tingling of right arm and leg Discussion: Right Wrist Tingling and Numbness Assessment: The patient presents with tingling and numbness in the right wrist, likely due to overuse and inflammation of the ligaments and tendons. Plan: The patient is advised to rest the affected wrist and use [id number] non-steroidal anti-inflammatory medications (e.g., ibuprofen) for inflammation. [...] Jin 02/17/24 1400 documented in this encounter [facility] 02-17-2024 Instructions DRUAN Jin - 02/17/2024 11:30 AM EDT Thank [...] to reach out. documented in this encounter [email or web address] 01-30-2024 History of Present illness Narrative Images from the original note were not included. [facility] [address] [place] [address] OFFICE: FAX: [phone] Patient: Sd Cardozo Date of : 1960 Encounter Date: 01/30/2024 Subjective Chief Complaint Chief Complaint Patient presents with Follow-up Diabetes Diabetes History of Present Illness Sd Cardozo is a 63 y.o. male who has a past medical history of Hyperlipidemia, Neuromuscular disorder ([facility]), and Type 1 diabetes ([facility] 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 Past Medical, Family, Surgery and Social History Past Medical History: Diagnosis Date Hyperlipidemia Neuromuscular disorder ([facility]) Type 1 diabetes ([facility]) Past Surgical History: Procedure Laterality [...] Interpersonal Safety: Unknown (08/07/2023) Received from [facility] [place] Safety & Environment Fear of Current or Ex-Partner: Not on file Emotionally Abused: Not on file Physically Abused: Not on file Sexually Abused: Not on file Physically or Sexually Abused: Not on file Housing Instability: Not on file Allergies and Current Medications Allergies Allergen Reactions House Dust Current Outpatient Medications Medication Sig Dispense Refill blood-glucose meter,continuous (DEXCOM G6 CHICKEN STUFFER) misc 1 Device by miscellaneous route continuously. 1 each 0 blood-glucose meter,continuous (DEXCOM G7 CHICKEN STUFFER) misc Inject 1 each under the skin [...] and atraumatic. Nose: Nose normal. Mouth/Throat: Lips: [place]. Mouth: Mucous membranes are moist. Eyes: General: [...] circumference with outer edge darker discoloration and steam fitter supervisor maintenance red in center. Nontender to tough. Neurological: [...] Diabetes mellitus type 1, controlled, insulin dependent ([facility]) - POCT Hemoglobin A1c 2. Mixed [...] will be made to obtain records from [facility]. Preventive Care Assessment: The patient has [...] DURAN Jin 01/30/241911 documented in this encounter [facility] 01-30-2024 Instructions DURAN Jin - 01/30/2024 4:00 [...] questions or concerns. [facility] Hospital Discharge instructions Patient Education 12/22/2023 [...] treatment? Where to find more information [employer] [place] [employer]: www.cancer.org [place] [employer]: www.auanet.org Contact a health care [...] provider. Document Revised: 11/26/2021 Document Reviewed: 11/26/2021 [email or web address] Patient Education 2022 [facility]. Follow Up Care 10/09/2023 16:07:18 With:ANGELIQUE LUNDBERG, Kim Mcgowan, URL Address: [facility] [address], [place] [address]- [id number] When: Unknown Comments:1 yr w/ PSA [facility]ar 12-09-2023 History of Present illness Narrative Images from the original note were not included. COUNTS INCLUDE 234 BEDS AT THE [facility] By [employer] [place] [address] OFFICE: FAX: [phone] Patient: Sd Cardozo Date of : 1960 Encounter Date: 12/09/2023 Subjective Chief Complaint Chief Complaint Patient presents with Follow-up History of Present Illness Sd Cardozo is a 63 y.o. male who has a past medical history of Hyperlipidemia, Neuromuscular disorder ([facility]), and Type 1 diabetes ([facility] Sd is an established patient last seen [...] Medical History: Diagnosis Date Hyperlipidemia Neuromuscular disorder ([facility]) Type 1 diabetes ([facility]) Past Surgical History: Procedure Laterality [...] Interpersonal Safety: Unknown (08/07/2023) Received from [facility] [place] Safety & Environment Fear of Current or Ex-Partner: Not on file Emotionally Abused: Not on file Physically Abused: Not on file Sexually Abused: Not on file Physically or Sexually Abused: Not on file Housing Instability: Not on file Allergies and Current Medications Allergies Allergen Reactions House Dust Current Outpatient Medications Medication Sig Dispense Refill blood-glucose meter,continuous (DEXCOM G6 CHICKEN STUFFER) misc 1 Device by miscellaneous route continuously. [...] 30 mL 1 blood-glucose meter,continuous (DEXCOM G7 CHICKEN STUFFER) misc Inject 1 each under the skin [...] Head: Normocephalic. Nose: Nose normal. Mouth/Throat: Lips: [place]. Mouth: Mucous membranes are moist. Cardiovascular: Rate [...] Diabetes mellitus type 1, controlled, insulin dependent ([facility]) - POCT Hemoglobin A1c Orders [...] Jin 12/09/23 190 documented in this encounter [facility] 12-09-2023 Instructions DURAN Jin - 12/09/2023 2:00 [...] with our clinic by connecting through the [facility] Clarity - Follow-Up and Monitoring: - Observe [...] in the meantime. documented in this encounter [email or web address] 10-16-2023 History of Present illness Narrative Images from the original note were not included. [facility] By [place] [address] OFFICE: FAX: [phone] Patient: Sd Cardozo Date of : 1960 Encounter Date: 10/16/2023 Subjective Chief Complaint Chief Complaint Patient presents with Follow-up History of Present Illness Sd Cardozo is a 63 y.o. male who has a past medical history of Hyperlipidemia, Neuromuscular disorder ([facility]), and Type 1 diabetes ([facility] Sd is an established patient last seen [...] Medical History: Diagnosis Date Hyperlipidemia Neuromuscular disorder ([facility]) Type 1 diabetes ([facility]) Past Surgical History: Procedure Laterality Date KIDNEY [...] Interpersonal Safety: Unknown (08/07/2023) Received from [facility] Safety & Environment Fear of Current or [...] in the morning. blood-glucose meter,continuous (DEXCOM G6 CHICKEN STUFFER) misc 1 Device by miscellaneous route continuously. [...] and atraumatic. Nose: Nose normal. Mouth/Throat: Lips: [place]. Mouth: Mucous membranes are moist. Eyes: General: [...] Diabetes mellitus type 1, controlled, insulin dependent ([facility]) - insulin degludec (TRESIBA U-100 [...] Jin 10/16/23 1719 documented in this encounter [facility] 10-16-2023 Instructions DURAN Jin - 10/16/2023 3:00 [...] up with your urologist, Dr. Ortiz from [place], regarding your PSA levels and the scheduled re-testing in three months. Continue taking Super Beta Prostate as you find it helpful. - Ensure your next PSA test does not follow recent intercourse or masturbation for accuracy. - Can obtain DexPneuron 7 in December. - Schedule a follow-up [...] contact our office. documented in this encounter [email or web address] 10-06-2023 History of Present illness Narrative Images from the original note were not included. [facility] [address] [facility] [id number] Subjective Sd Cardozo is a 63 y.o. [...] Diagnosis Type 1 diabetes mellitus with hyperglycemia ([facility]) Mixed hyperlipidemia Diabetes mellitus type 1, controlled, insulin dependent ([facility]) Vertebral artery stenosis, left Allergies: [...] 30 mL 4 blood-glucose meter,continuous (DEXCOM G6 CHICKEN STUFFER) misc 1 Device by miscellaneous route continuously. [...] created with the assistance of a voice embedded software developer program. While intending to generate a timely document that accurately reflects the content of the visit, no guarantee can be provided that every grammatical or spelling mistake has been or will be identified or corrected, and inadvertent computerized embedded software developer errors may be present. Please contact author for any clarification. Thank you for your understanding. CHAS ROMAN DO [facility] [employer] [address] [place] [address] Office: [phone] documented in this encounter [email or web address] 10-06-2023 Instructions Chas Roman DO - 10/06/2023 [...] office for re-evaluation. documented in this encounter [email or web address] 09-04-2023 History of Present illness Narrative Images from the original note were not included. [facility] [address] [place] [address] OFFICE: FAX: [phone] Patient: Sd Cardozo Date of : 1960 Encounter Date: 09/04/2023 Subjective Chief Complaint Chief Complaint Patient presents with Follow-up History of Present Illness Sd Cardozo is a 63 y.o. male who has a past medical history of Hyperlipidemia, Neuromuscular disorder ([facility]), and Type 1 diabetes ([facility]). Sd was last seen in office 07/10/2023 [...] Medical History: Diagnosis Date Hyperlipidemia Neuromuscular disorder ([facility]) Type 1 diabetes ([facility]) Past Surgical History: Procedure Laterality Date KIDNEY [...] in the morning. blood-glucose meter,continuous (DEXCOM G6 CHICKEN STUFFER) misc 1 Device by miscellaneous route continuously. [...] Head: Normocephalic. Nose: Nose normal. Mouth/Throat: Lips: [place]. Mouth: Mucous membranes are moist. Pulmonary: Effort: [...] Diabetes mellitus type 1, controlled, insulin dependent ([facility]) - POCT Hemoglobin A1c - [...] morning. Dispense: 6 mL Refill: 0 LOT: [id number]; EXP: 07/16/2024 Medications Discontinued During This Encounter [...] DURAN Jin 09/04/232006 documented in this encounter [facility] 09-04-2023 Instructions DURAN Jin - 09/04/2023 3:00 PM EDT 16 units of Tresiba documented in this encounter [facility] 08-19-2023 History of Present illness Narrative DWO for CGM signed/dated and faxed to [facility] at [phone] Arlen Daugherty RPH 08/19/23 1312 documented in this encounter [facility] 07-10-2023 History of Present illness Narrative Images from the original note were not included. COUNTS INCLUDE 234 BEDS AT THE [facility] [place] [address] OFFICE: FAX: [phone] Patient: Sd Cardozo Date of : 1960 [...] past medical history of Hyperlipidemia, Neuromuscular disorder ([facility]), and Type 1 diabetes ([facility]). Sd presents today with concerns [...] Medical History: Diagnosis Date Hyperlipidemia Neuromuscular disorder ([facility]) Type 1 diabetes ([facility]) Past Surgical History: Procedure Laterality Date KIDNEY [...] in the morning. blood-glucose meter,continuous (DEXCOM G6 CHICKEN STUFFER) misc 1 Device by miscellaneous route continuously. [...] Head: Normocephalic. Nose: Nose normal. Mouth/Throat: Lips: [place]. Mouth: Mucous membranes are moist. Pulmonary: Effort: [...] Diabetes mellitus type 1, controlled, insulin dependent ([facility]) 2. 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 [...] DURAN Jin 07/10/232030 documented in this encounter [email or web address] 06-06-2023 History of Present illness Narrative Images from the original note were not included. [facility] [place] [address] OFFICE: FAX: [phone] Patient: Sd Cardozo Date of : 1960 Encounter Date: 06/06/2023 Subjective Chief Complaint Chief Complaint Patient presents with Follow-up History of Present Illness Sd Cardozo is a 63 y.o. male who has a past medical history of Hyperlipidemia, Neuromuscular disorder ([facility]), and Type 1 diabetes ([facility]). Sd is an established patient [...] in the morning. blood-glucose meter,continuous (DEXCOM G6 CHICKEN STUFFER) misc 1 Device by miscellaneous route continuously. [...] Diabetes mellitus type 1, controlled, insulin dependent ([facility]) - POCT Hemoglobin A1c - [...] Jin 06/06/23 1547 documented in this encounter [facility] 10-30-2021 Hospital Discharge instructions Juju Knapp RN [...] cannot be sent through Care Everywhere.High-Fiber Diet (Taiwanese)documented in this encounter [employer] Phone: 10-30-2021 History of Present illness Narrative CECUM REACHED AT 1228 Finger stick blood sugar 145 documented in this encounter [employer] Phone: 10-18-2021 History of Present illness Narrative [...] of water: (Sd will consult with his Photography Manager in regards to 10/29/21 night dose of [...] powder, deodorant, jewelry, piercings, perfume, makeup, nail welsh, hair accessories, or hair spray on the [...] hospital. The Day of Surgery: Arrive at [facility] Surgery Entrance at the time directed by your surgeon and check in at the desk. If you have a living will or healthcare power of feed inspection supervisor, please bring a copy. You will be taken to the pre-op holding area where you will be prepared for surgery. A physical assessment will be performed by a nurse practitioner or warehouse operator. Your IV will be started and [...] verbalized. 10/30/21 Colonoscopy documented in this encounter [facility] Work Phone: Evaluation + Plan note Future Appointments Appointment Date:12/27/2024 02:45:00 PM Scheduled Provider:Kim ORTIZ MD Location:[facility] Appointment Type:URO Office Visit Diagnostic Tests PendingPSA Total 12/22/23 [facility] Evaluation + Plan note Future Appointments Appointment Date:07/25/2025 01:15:00 PM Scheduled Provider:Kim ORTIZ MD Location:[facility] Appointment Type:URO Office Visit Diagnostic Tests PendingPSA Free & Total 01/24/25 [facility] [place] Evaluation note No assessment inform ation available [facility] Work Phone: Evaluation note Diagnosis Intractable tension-type headache, unspecified chronicity pattern documented [facility] Diagnosis Impacted cerumen, right ear- Primary Diabetes mellitus type 1, controlled, insulin dependent (CMS/HCC) Acute ear pain, right Chronic sinusitis, unspecified location [facility] Diagnosis Type 1 diabetes mellitus with hyperglycemia (CMS-HCC)- Primary Mixed hyperlipidemia Type 1 diabetes mellitus with hyperglycemia (CMS-HCC) documented [facility]* Diagnosis Diabetes mellitus type 1, controlled, insulin dependent (CMS-HCC)- Primary [facility] Diagnosis Otalgia of right ear- Primary documented in [facility]* Diagnosis History of elevated PSA- Primary Diabetes mellitus type 1, controlled, insulin dependent (CMS-HCC) documented [facility]* Diagnosis Type 1 diabetes mellitus with hyperglycemia (CMS-HCC)- Primary Mixed hyperlipidemia Diabetes mellitus type 1, controlled, insulin dependent (CMS-HCC)- Primary Mixed hyperlipidemia Need for pneumococcal 20-valent conjugate vaccination documented in [facility] Diagnosis Diabetes mellitus type 1, controlled, insulin dependent (CMS-HCC)- Primary 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 documented in this encounter [facility]* Diagnosis Diabetes mellitus type 1, controlled, insulin dependent (CMS-HCC)- Primary documented in this [facility]* Diagnosis Diabetes mellitus type 1, controlled, insulin dependent (CMS-HCC)- Primary Mixed hyperlipidemia documented in this [facility] Diagnosis Diabetes mellitus type 1, controlled, insulin dependent (CMS-HCC)- Primary Mixed hyperlipidemia Contusion of right upper extremity, initial encounter Need for shingles vaccine Need for prophylactic vaccination and inoculation against varicella documented in this encounter [facility] Diagnosis Diabetes mellitus type 1, controlled, insulin dependent (CMS-HCC)- Primary Numbness and tingling of right arm and leg [facility] Diagnosis Diabetes mellitus type 1, controlled, insulin dependent (CMS-HCC)- Primary Bilateral foot pain Need for shingles vaccine Need for prophylactic vaccination and inoculation against varicella Need for immunization against influenza Need for prophylactic vaccination and inoculation against influenza [facility] Diagnosis Type 1 diabetes mellitus with hyperglycemia (CMS-HCC)- Primary Mixed hyperlipidemia Diabetes mellitus type 1, controlled, insulin dependent (CMS-HCC)- Primary Mixed hyperlipidemia Prostate cancer screening Special screening for malignant neoplasm of prostate Encounter for annual wellness visit [facility] Diagnosis Type 1 diabetes mellitus with hyperglycemia (CMS-HCC)- Primary Mixed hyperlipidemia Diabetes mellitus type 1, controlled, insulin dependent (CMS-HCC) documented in this encounter [facility] Diagnosis Type 1 diabetes mellitus with hyperglycemia (CMS-HCC)- Primary Mixed hyperlipidemia Diabetes mellitus type 1, controlled, insulin dependent (CMS-HCC)- Primary Mixed hyperlipidemia documented in this encounter [facility]* Diagnosis Type 1 diabetes mellitus with hyperglycemia (CMS-HCC)- Primary Mixed hyperlipidemia Non-recurrent acute suppurative otitis media of right ear without spontaneous rupture of tympanic membrane- Primary Cerumen debris on tympanic membrane of right ear Otitis interna, right documented in this encounter [facility]* Diagnosis Type 1 diabetes mellitus with hyperglycemia (CMS-HCC)- Primary Mixed hyperlipidemia Diabetes mellitus type 1, controlled, insulin dependent (CMS-HCC)- Primary Mixed hyperlipidemia Encounter for screening for malignant neoplasm of prostate Recurrent productive cough Cough Encounter for screening for depression Recurrent productive cough Cough documented in this [facility] Diagnosis Lumbosacral strain, initial encounter- Primary Type 2 diabetes mellitus without complications (HCC) Unspecified chronic bronchitis (HCC) Unspecified chronic bronchitis Spasm of abdominal muscles documented [facility] N[facility] No data available for this section [facility] InstructionsNot on filedocumented in this encounter [facility] filedocumented in this [facility] on filedocumented in this encounter [facility] on filedocumented in this encounter [facility] on filedocumented in this encounter [facility] No data available for this section [facility] reason for visit Narrative* Auth/Cert Specialty Diagnoses / Procedures Referred By Contac t Referred To Contact Diagnoses Screen for colon cancer SCREEN FOR COLON CANCER Procedures MN COLONOSCOPY FLX DX W/COLLJ SPEC WHEN PFRMD MN COLONOSCOPY W/BIOPSY SINGLE/MULTIPLE MN COLSC FLX W/RMVL OF TUMOR POLYP LESION SNARE TQ COLORECTAL CANCER SCREENING, NOT HIGH RISK Colton Romero MD [address] [place] [address] [employer] [address] [place] [address] Referral ID Status Reason Start Date Expiration Date Visits Re quested Visits Authorized [id number] 1 1 [employer] Phone: Advance Directives Documents on File Type Date Recorded Patient Radio Electronics Technician Expl anation Advance Directives and Living Will Power of Mold Car Pusher Latest Code Status on File Code Status Date Activated Date Inactivated Comments Full Code 08/06/2016 12:55 PM 08/08/2016 11:55 AM Full Code 09/28/2013 3:25 PM 09/29/2013 8:00 PM Documents on File Type Date Recorded Patient Radio Electronics Technician Expl anation ACP-Advance Directive ACP-Power of Mold Car Pusher Documents on File Type Date Recorded Patient Radio Electronics Technician Expl anation ACP-Advance Directive ACP-Power of Mold Car Pusher Latest Code Status on File Code Status [...] sent through Care Everywhere. * Urinary Retention ([place]ai[place]ese) documented in this encounter* Instructions* Freddie Feliz [...] be sent through Care Everywhere. * Constipation ([place]ai[place]ese) documented in this encounter* Attachments The following attachments cannot be sent through Care Everywhere. * Abrasions ([place]ese) documented in this encounter Assessments Diagnosis Urinary [...] Referred By Lesli t Referred To Contact Radiology Diagnoses Intractable tension-type headache, unspecified chronicity pattern Procedures CT HEAD [place] [address] [place] [address] Referral ID Status Reason Start Date Expiration Date V isits Requested Visits Authorized [id number] Pending Review 12/16/2023 12/15/2024 1 1 Specialty Diagnoses / Procedures Referred By Contac t Referred To Contact Diagnoses Diabetes mellitus type 1, controlled, insulin dependent ([facility]) Chani Weinberg, 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 [address] [place] [address] Referral ID Status Reason Start Date Expiration Date Visits Re quested Visits Authorized [id number] Denied 1 1 Referral ID Status Reason Start Date Expiration Date V isits Requested Visits Authorized [id number] Pending Review 1 1 Additional Source Comments Reason for Visit (unrecogniz ed section and content) Reason Comments Abdominal Pain RLQ Reason Comments Abdominal Pain Reason Comments Leg Injury left Fall Specialty Diagnoses / Procedures Referred By Lesli t Referred To Contact Radiology Diagnoses Intractable tension-type headache, unspecified chronicity pattern Procedures CT HEAD [place]jandro U[place]ña [place] [address] [place] [address] Referral ID Status Reason Start Date Expiration Date V isits Requested Visits Authorized [id number] Pending Review 12/16/2023 12/15/2024 1 1 Reason Comments Earache One week ear ache ri ght ear, painful to touch and feels like theres fluid behind it Reason Comments Med Refill Reason Comments Follow-up Reason Comments Earache Right ear pain x 1 w grayling denies drainage/ blood, uses q tips rarely [...] Rt ear x 2days stabb ing pain Reason Comments Abdominal Pain Patient is here for right lower abdominal pain. Patient reports that it has been going on for about 2 weeks now. Patient called his urologist and they sent him for a CT scan that came back negative. Patient states that the pain continued and he went to [facility] on 03[facility]27[facility]25 and they did labs, xray, and US and everything came back normal there too. Patient reports that he is still having the abdominal pain. He denies any changes in urination, or with bowel movements. (unrecognized sect ion and content) No Status Records FoundNo Status Records FoundNo Status Records FoundNo Status Records FoundNo Status Records FoundNo Status Records FoundNo Status Records FoundNo Status Records FoundNo Status Records FoundNo Status Records Found INFORMATION SOURCE (unrecogn ized section and content) DATE CREATED AUTHOR 04/29/2020 [facility] DATE CREATED AUTHOR AUTHOR'S ORGANIZ ATION 11/26/2020 [facility] DATE CREATED AUTHOR AUTHOR'S ORGANIZ ATION 10/14/2021 [facility] DATE CREATED AUTHOR AUTHOR'S ORGANIZ ATION 08/10/2022 [facility] DATE CREATED AUTHOR AUTHOR'S ORGANIZ ATION 10/08/2023 [facility] DATE CREATED AUTHOR AUTHOR'S ORGANIZ ATION 12/19/2023 [facility] DATE CREATED AUTHOR AUTHOR'S ORGANIZ ATION 04/27/2024 [facility] DATE CREATED AUTHOR AUTHOR'S ORGANIZ ATION 06/03/2024 [facility] DATE CREATED AUTHOR AUTHOR'S ORGANIZ ATION 01/25/2025 [facility] DATE CREATED AUTHOR AUTHOR'S ORGANIZ ATION 01/29/2025 [facility] Teams (unrecognized sec tion and content) Cottage Master Relationship Specialty Start Date End Date Alejandro Umaña [address] [address] PCP - General Family Medicine 09/03/19 Cottage Master Relationship Specialty Start Date End Date Alejandro Uamña [address] [address] PCP - General Family Medicine 09/03/19 Cottage Master Relationship Specialty Start Date End Date Alejandro Umaña [address] [address] PCP - General Family Medicine 09/03/19 Team Status: Active Member Role Status Dates Alejandro Umaña MD Primary Care Provider Active Team Status: Inactive Member Role Status Dates Kim Ortiz MD Attending Provider Active St art: October 03, 2023 End: October 03, 2023 Alejandro Umaña MD Primary Care Provider Active Start: October 03, 2023 End: October 03, 2023 Cottage Master Relationship Specialty Start Date End Date Alejandro Umaña MD PCP - General Family Medicine 09/03/19 Cottage Master Relationship Specialty Start [place] [address] [facility] [place] [address] PCP - General Family Medicine 11/27/22 [place] [address] [facility] [place] [address] PCP - Medical [place] [employer] 06/16/15 06/15/99 Cottage Master Relationship Specialty Start Date [place]jandro [place] [address] [facility] [place] [address] PCP - General Family Medicine 11/27/22 Alej[place] [address] [facility] [place] [address] PCP - Medical [place] [employer] 06/16/15 06/15/99 Cottage Master Relationship Specialty Start Date End Date Chani Weinberg APRN-CNP [address] [facility] [place] [address] PCP - General Family Medicine 09/17/22 Cottage Master Relationship Specialty Start Date End Date Chani Weinberg APRN-CNP [address] [facility] [place] [address] PCP - General Family Medicine 09/17/22 Cottage Master Relationship Specialty Start Date End Date Chani Weinberg APRN-SARAH [address] [facility] [address] PCP - General Family Medicine 09/17/22 Cottage Master Relationship Specialty Start Date End Date Chani Weinberg APRN-CNP [address] [place] [address] PCP - General Family Medicine 09/17/22 Cottage Master Relationship Specialty Start Date End Date Chani Weinberg APRNBOX TRUCK OWNER OPERATOR [address] [place] [address] PCP - General Family Medicine 09/17/22 Cottage Master Relationship Specialty Start Date End Date Chani Weinberg APRNBOX TRUCK OWNER OPERATOR [address] [place] [address] PCP - General Family Medicine 09/17/22 Cottage Master Relationship Specialty Start Date End Date Chani We[facility] [address] [place] [address] PCP - General Family Medicine 09/17/22 Cottage Master Relationship Specialty Start Date End Date Chani Weinberg APRNBOX TRUCK OWNER OPERATOR [address] [place] [address] PCP - General Family Medicine 09/17/22 Cottage Master Relationship Specialty Start Date End Date Chani Weinberg [facility] [address] [place] [address] PCP - General Family Medicine 09/17/22 Cottage Master Relationship Specialty Start Date End Date Chani Weinberg [facility] [address] [place] [address] PCP - General Family Medicine 09/17/22 Cottage Master Relationship Specialty Start Date End Date Livingood, Chani M, 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 [address] [place] [address] PCP - General Family Medicine 09/17/22 Cottage Master Relationship Specialty Start Date End Date Chani Weinberg APRN-CNP [address] [place] [address] PCP - General Family Medicine 09/17/22 Cottage Master Relationship Specialty Start Date End Date Chani Weinberg APRN-CNP [address] [place] [address] PCP - General Family Medicine 09/17/22 Cottage Master Relationship Specialty Start Date [place] Alejandro U[place]ña [place] [address] [place] [address] PCP - General Family Medicine 11/27/22 Alejandro [place] [address] [place] [address] PCP - Medical [place] [employer] 06/16/15 06/15/99 Cottage Master Relationship Specialty Start Date End Date Chani Weinberg APRN-CNP [address] [place] [address] PCP - General Family Medicine 09/17/22 Cottage Master Relationship Specialty Start Date End Date Chani Weinberg APRN-CNP [address] [place] [address] PCP - General Family Medicine 09/17/22 Cottage Master Relationship Specialty Start Date [place]jandro [place] [address] [place] [address] PCP - General Family Medicine 11/27/22 [place] [address] [place] [address] PCP - Medical [place] [employer] 06/16/15 06/15/99 Cottage Master Relationship Specialty Start Date [place] [address] [place] [address] PCP - General Family Medicine 11/27/22 [place]jandro [place] [address] [facility] [place] [address] PCP - Medical [facility] 06/16/15 06/15/99 Continuous Active and Recently Administ ered Medications (unrecognized section and content) Medication Order 10/28/2021 10/29/2021 10/30/2021 0.9 % sodium chloride infusion (CANCELED) IntraVENous, at 125 mL/hr, CONTINUOUS, Starting on Fri10/30/21 at 1130, Pre-op (day of surgery) 1139 (New Bag - Prov ider: Mira Varela RN)1203 (Paused - Provider: Jeanne Reyes BRANCH SERVICE SPECIALIST - LIFE ADVISOR - Comment: Switch to gravity)1204 (Restarted - Provider: Jeanne Reyes BRANCH SERVICE SPECIALIST - LIFE ADVISOR)1247 (Anesthesia Volume Adjustment - Provider: Jeanne Reyes BRANCH SERVICE SPECIALIST - LIFE ADVISOR)1352 (Stopped - Provider: Juju Knapp RN) Goals [...] encounterNot on filedocumented as of this encounter FOR [...] BE BASED ON THE PRIMARY CLINICAL RECORDS. [facility] [employer] [facility] provides no warranty or guarantee of the accuracy or completeness of information in this document.
--- OUTSIDE RECORDS SUMMARY | 2025-04-01 03:38 | XMS_ITS | Clinical Summary ---
Author Organization [facility] Address [address] [place] [address] Care Team Providers Care Offset Printing Pressmen Name Role Phone Alejandro Umaña MD Primary Care Provider [phone] Alejandro Umaña MD Unavailable [phone] Allergies Active Allergy Reactions Criticality Noted Date Comments Dust Mite Extract 07/19/2015 Medications aspirin 81 MG EC tablet Take 81 mg by mouth in the morning. Active fluticasone (Flonase) 50 MCG/ACT nasal spray Administer 1 spray into each nostril 1 (one) time each day at the same time. Active Glucosamine-Cho ndroitin 500-400 MG capsule Take 1 capsule by [...] as needed for dizziness. 3 Active therapeutic multivitamin-mi nerals (Theragran-M) tablet Take 1 tablet by mouth in the morning. Active Continuous Blood Gluc Sensor (Dexcom G6 Sensor) misc Acti ve NovoLOG FLEXPEN 100 UNIT/ML pen PLEASE SEE ATTACHED FOR DETAILED DIRECTIONS 4 Active Tresiba FlexTouch 100 UNIT/ML injection INJECT 14 TO 16 UNITS UNDER THE SKIN IN THE MORNING 4 Active ondansetron (Zofran) 4 MG tabletIndicatio ns:Acute intractable tension-type headache Take 1 tablet (4 mg) by mouth at bedtime 30 tablet 4 Active Spiriva Respimat 1.25 MCG/ACT aerosol solution Inhale 2.5 mcg in the morning. 5 Active methocarbamol (Robaxin) 750 MG tabletIndicatio ns:Lumbosacral strain, initial encounter,Spasm of abdominal muscles Take 1 tablet (750 mg) by mouth 3 (three) times a day 90 tablet 5 04/29/20 25 Active naproxen (Naprosyn) 500 MG tabletIndicatio ns:Lumbosacral strain, initial encounter Take 1 tablet (500 mg) by mouth 2 (two) times a day as needed for mild pain (pain) 60 tablet 5 06/28/19 26 Active ibuprofen 600 MG tablet Take 600 mg by mouth 5 03/30/20 25 Discontin ued(Thera py completed ) Active Problems Problem Noted Date Diagnosed Date Tricuspid valve disorder 03/30/2025 Mitral valve disorder 03/30/2025 Facial weakness 03/30/2025 Constipation 03/30/2025 Colon cancer screening 03/30/2025 Chronic sinusitis 05/31/2024 Vertebral artery stenosis, left 11/25/2022 Diabetes mellitus type 1, controlled, insulin de pendent 09/17/2022 Mixed hyperlipidemia 07/30/2022 Closed fracture of scaphoid bone of wrist 2020 Closed fracture of left wrist 07/31/2020 Pneumonia of both lungs due to infectious organi sm 08/07/2016 Hemoptysis 08/07/2016 Cough due to bronchospasm 06/19/2016 Ear pain, referred 01/25/2016 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 Wrist pain, acute 08/09/2015 Acute recurrent maxillary sinusitis 08/09/2015 Encounters Date Type Department Care Team Description 03/30/2025 11:40 AM EDT Office Visit [facility] Medicine [address] [place] [address] Alejandro Umaña MD Lumbosacral strain, initial encounter (Primary Dx); Type 2 diabetes mellitus without complications (HCC); Unspecified chronic bronchitis (HCC); Spasm of abdominal muscles 03/30/2025 Bamboo flowsheet [facility] [address] [place] [address] Alejandro Umaña MD 03/30/2025 Travel 03/27/2025 Abstract [facility] [address] [place] [address] Alejandro Umaña MD 03/26/2025 Abstract [facility] [address] [place] [address] Alejandro Umaña MD 03/26/2025 Clinisync Result Encounter [facility] External Department Unsolicited Provider, Generic External Data 03/26/2025 Clinisync Result Encounter [facility] External Department Unsolicited Provider, Generic External Data 01/17/2025 Clinisync Result Encounter [facility] External Department Unsolicited Provider, Generic External Data from Last 3 Months Immunizations Immunization Administration Dates Next Due Influenza, injectable, quadr ivalent, preservative free 04/01/2022,03/13/2021,02/28/2020 Influenza, seasonal, injecta ble, preservative free 03/19/2024 Pneumococcal Conjugate PCV 13 08/22/2016 Pneumococcal Conjugate PCV 20 07/27/2024 Pneumococcal Polysaccharide PPSV23 03/05/2011 Zoster, Recombinant 03/19/2024,01/30/2024 Family History Medical History Relation Name Comments [...] Mass Index 22.1 03/30/2025 11:44 AM EDT Plan of Treatment Health Maintenance Due Date Last Done Comments CT Colonography 1960 FIT-DNA 1960 FIT 1960 FOBT 1960 Sigmoidoscopy 1960 Diabetes: Retinopathy Screening 05/23/2023 , 07/07/2019 Influenza Vaccine (#1) 2025 4, 04/01/2022, 03/13/2021, Additional history exists Diabetes: Urine Protein Screening 04/23/2025 04/23/2024, 04/23/2024, 06/06/2023, Additional history exists Diabetes: Hemoglobin A1C 04/29/2025 025, 04/23/2024, 01/30/2024, Additional history exists Colonoscopy 10/31/2031 10/30/2021 Colorectal Cancer Screening 10/31/2031 Procedures Procedure Name Priority Date/Time Associated Diagnosis Comments POCT URINALYSIS DIPSTICK Routine 03/30/2025 12:40 PM EDT Spasm of abdominal muscles XR ABDOMEN 1V 03/26/2025 3:51 PM EDT US RENAL BI 03/26/2025 3:49 PM EDT PSA TOTAL+% FREE Routine 01/17/2025 4:32 PM EDT HEMOGLOBIN A1C Routine 01/30/2024 11:54 AM EDT MICROALBUMIN / CREATININE URINE RATIO Routine 07/11/2022 COLONOSCOPY Routine 10/30/2021 12:00 PM EDT COLOR FUNDUS PHOTOGRAPHY - OU - BOTH EYES Routine 05/23/2021 12:00 PM EST from Last 3 Months or Most Recently Relevant to Health Maintenance Results * POCT urinalysis dipstick manually resulted [...] OF CARE TEST ENTER/EDIT ORDERABLES Final Result * XR ABDOMEN 1V (03/26/2025 3:51 PM EDT) Anatomical Region Laterality Modality Other 03/26/2025 3:51 PM EDT Narrative 03/26/2025 3:53 PM EDT [address] [address] XRay Report Signed Patient: SD CARDOZO MR#: [id number] : 1960 Acct:[id number] Age/Sex: 64 / M ADM Date: 03/26/25 Loc: US Attending Dr: Rafaela REYES Ordering Physician: Rafaela Vance Date of Service: 03/26/25 Procedure(s): XR abdomen 1V Accession Number(s): [id number] cc: ALEJANDRO UMAÑA ; Rafaela Vance [address] [address] Patient Name: SD CARDOZO MRN: [id number] date: 1960 Sex: M Assigned Patient Location: US Current Patient Location: US Accession/Order Number: [id number] Exam Date: 03/26/2025 14:20 Report Date: 03/26/2025 15:51 At the request of: RAFAELA REYES Procedure: XR abdomen 1V KUB INDICATION: Kidney stone, right-sided flank pain COMPARISON: Ultrasound 03/26/2025 FINDINGS: Nvdz-lp-cxixermn stool burden. Nonspecific nonspecific bowel gas pattern. No radiopaque calcifications overlying the renal shadows or the psoas muscles. Osseous structures are noncontributory. XR/XR abdomen 1V IMPRESSION: No radiopaque calculi identified. Impression dictated by: Bill Jade M.D. 03/26/2025 3:51 PM Dictation Location: [place] [address] Electronically authenticated by: [id number] Y Date: 03/26/2025 15:51 Dictated By: Bill Jade M.D. Signed By: 03/26/25 155 DD/ 50 TD/TT: Informatics Nurse: Procedure Note Radiology, Radiologist, MD - 03/26/2025 [place] [address] XRay Report Signed Patient: SD CARDOZO JMR#: [id number] : 1960cct:[id number] Age/Sex: 64 / MADM Date: 03/26/25 Loc: US Attending Dr: Rafaela REYES Ordering Physician: Rafaela Vance Date of Service: 03/26/25 Procedure(s): XR abdomen 1V Accession Number(s): [id number] cc: ALEJANDRO UMAÑA ; Rafaela Vance [address] [address] Patient Name: SD CARDOZO MRN: [id number] date: 1960 Sex: M Assigned Patient Location: US Current Patient Location: US Accession/Order Number: [id number] Exam Date: 03/26/2025 14:20 Report Date: 03/26/2025 15:51 At the request of: RAFAELA REYES Procedure: XR abdomen 1V KUB INDICATION: Kidney stone, right-sided flank pain COMPARISON: Ultrasound 03/26/2025 FINDINGS: Xajp-nc-pgwargsz stool burden. Nonspecific nonspecific bowelgas pattern. No radiopaque calcifications overlying the renal shadows or the psoas muscles. Osseous structures are noncontributory. XR/XR abdomen 1V IMPRESSION: No radiopaque calculi identified. Impression dictated by: Bill Jade M.D. 03/26/2025 3:51 PM Dictation Location: [place] [address] Electronically authenticated by: [id number] Y Date: 5:51 Dictated By: Bill Jade M.D. Signed By:03/26/25 1553 DD/ 1551 TD/TT: Informatics Nurse: us Generic External Data Provider [facility] Final Result * US RENAL BI (03/26/2025 3:49 PM EDT) Anatomical Region Laterality Modality Other 03/26/2025 3:49 PM EDT Narrative 03/26/2025 3:51 PM EDT [address] [address] Ultrasound Report Signed Patient: SD CARDOZO MR#: [id number] : 1960 Acct:[id number] Age/Sex: 64 / M ADM Date: 03/26/25 Loc: US Attending Dr: Rafaela REYES Ordering Physician: Rafaela Vance Date of Service: 03/26/25 Procedure(s): US renal BI Accession Number(s): [id number] cc: ALEJANDRO UMAÑA ; Rafaela Vance [address] [address] Patient Name: SD CARDOZO MRN: [id number] date: 1960 Sex: M Assigned Patient Location: US Current Patient Location: US Accession/Order Number: [id number] Exam Date: 03/26/2025 14:07 Report Date: 03/26/2025 [...] Jade M.D. 03/26/2025 3:49 PM Dictation Location: [place] [address] Electronically authenticated by: [id number] Y Date: 03/26/2025 15:49 Dictated By: Bill Jade M.D. Signed By: 03/26/25 1551 DD/ 1549 TD/TT: Informatics Nurse: Procedure Note Radiology, Radiologist, MD - 03/26/2025 [place] [address] Ultrasound Report Signed Patient: SD CARDOZO JMR#: [id number] : 1960cct:[id number] Age/Sex: 64 / MADM Date: 03/26/25 Loc: US Attending Dr: Rafaela REYES Ordering Physician: Rafaela Vance Date of Service: 03/26/25 Procedure(s): US renal BI Accession Number(s): [id number] cc: ALEJANDRO UMAÑA ; Rafaela Vance The [address] [address] Patient Name: SD CARDOZO MRN: [id number] date: 1960 Sex: M Assigned Patient Location: Current Patient Location: US Accession/Order Number: [id number] Exam Date: 03/26/2025 14:07 Report Date: 03/26/2025 [...] Jade M.D. 03/26/2025 3:49 PM Dictation Location: [place] [address] Electronically authenticated by: [id number] Y Date: 5:49 Dictated By: Bill Jade M.D. Signed By:03/26/25 1551 DD/ 1549 TD/TT: Informatics Nurse: Generic External Data Provider [facility] Final Result * PSA TOTAL+% FREE (01/17/2025 4:32 PM EDT) PROSTATE SPECIFIC AG 3.1 0.0 - 4.0 ng/mL TB Comment: AggiosIA methodology. According to the [place] [employer], Serum PSA should decrease and [...] absence of malignant disease. PSA, FREE 0.53 N/A ng/mL TB[facility] Comment:Fer ECLIA methodol ogy. % FREE PSA 17.1 . % [facility] Comment: The table below lists the probability of prostate cancer for men [...] any other population of men. Performed at: [address] [id number] Transmission Mechanic: Steve Ramirez PhD, Phone: [phone] 01/17/2025 4:32 PM EDT 01/17/2025 4:44 PM EDT Narrative [facility] - 01/19/2025 4:07 AM EDT us Generic External Data Provider LAB BLOOD ORDERAB LES Final Result Performing Organization Address [facility] Co de Phone Number [facility] * Microalbumin / creatinine urine ratio (07/11/2022) [...] MD LAB URINE ORDERABLES Final Res ult Performing Organization Address City/[facility]/ZIP Co de Phone Number [facility] * Colonoscopy (10/30/2021 12:00 PM EDT) Anatomical Region Laterality Modality Endoscopy 10/30/2021 12:0 0 PM EDT Narrative 10/30/2021 12:00 PM EDT PERFORMED AT [facility] LOCATION:[id number] see attached Procedure Note CONVERSION, GENERIC - 10/30/2022 PERFORMED AT [facility] LOCATION:[id number] see attached us Alejandro Umaña MD ENDOSCOPY PROCEDURE ORDERABLES Final Result * Color Fundus Photography - OU - Both Eyes (05/23/2021 12:00 PM EST) Anatomical Region Laterality Modality Head Fundus Photograp hy 05/23/2021 12:0 0 PM EST Narrative 05/23/2021 12:00 PM EST PERFORMED AT [facility] LOCATION:[id number] [facility] Procedure Note CONVERSION, GENERIC - 10/30/2022 PERFORMED AT [facility] LOCATION:[id number] NDR Alejandro Umaña MD OPHTH PHOTOGRAPHY Final Result from Last 3 Months or Most Recently Relevant to Health Maintenance Insurance [employer] Care Teams Offset Printing Pressmen Relationship Specialty Start Date [place] [address] [place] [address] PCP - General Family Medicine 11/27/22 [place] [address] [place] [address] PCP - Medical [place] [employer] 06/16/15 06/15/99
--- OUTSIDE RECORDS SUMMARY | 2025-04-01 03:38 | XMS_ITS | Clinical Summary ---
Author Organization [facility] Address [address] [place] [address] Care Team Providers Care Commercial Teller Name Role Phone Unavailable Primary Care Provider Unavailabl e Social History Tobacco Use Types Packs/Day Years Used Date Smoking Tobacco: Never Assessed [place] Safety & Environment Answer Date Rec orded Fear of Current or Ex-Partner Not on file Emotionally Abused Not on file 08/07/2023 Physically Abused Not on file 08/07/2023 Sexually Abused Not on file 08/07/2023 Physically or Sexually Abused Not on file Sex and Gender Information Value Date Recorded Sex Assigned at Not on file Legal Sex Male 12:34 AM EDT Gender Identity Not on file Sexual Orientation Not on file Plan of Treatment Not on file
--- OUTSIDE RECORDS SUMMARY | 2025-04-01 03:38 | XMS_ITS | Patient Health Record ---
Author Organization [facility] Address [address] [place] [address] Care Team Providers Care Astrobiologist Name Role Phone Chasidy LUNDBERG, Alejandro Primary Care Provider Unavailab le Reason For Referral No Information Medications Medication SIG (Take, Route, Frequency, Duration) Notes Start Date End Date Status carBAMazepine 200 MG 1 tablet Orally TID ( as directed); Duration: 30 day(s) 02/05/2016 Active Lantus 100 UNIT/ML Subcutaneous 8 units Am, 1 5 units Night Active Polyethylene Glycol 3350 - as directed Orally Once a day; Duration: 1 days 10/15/2021 Active Dulcolax 5 MG 4 as directed Orally Once a day; Duration: 1 days 10/15/2021 Active NovoLOG FlexPen 100 UNIT/ML Subcutaneous slding scale Active Immunizations Vaccine Route Administration Date Status Comme nts Pneumococcal (Pneumovax 23) Intramuscular 03/05/2011 Pending [id number] 03:46P M Tdap Intramuscular 08/02/2014 Pending [id number] 0 4:43PM Problems Problem Type SNOMED Code ICD Code Onset Dates Problem Status W/U Status Risk Notes Problem Mitral valve disorder (70114944) MR (mitral regurgitation) (I34.0) Active confirmed Problem Tricuspid valve disorder (25168470) TR (tricuspid regurgitation) (I07.1) Active confirmed Problem Colon cancer screening (014518964) Colon cancer screening (Z12.11) Active confirmed Plan Of Treatment Pending Test Test Name Order Date SED RATE (ESR) 10/08/2022 ELECTROLYTES (NA,K,CL,CO2,GAP) 6 CBC WITH DIFF 02/05/2016 LIVER (HEPATIC) PANEL 02/05/2016 BUN and CREATININE W/GFR 02/05/2016 CBC WITH M-DIFF 10/08/2022 KASSI SCREEN with REFLEX 10/08/2022 Future Test Test Name Order Date ELECTROLYTES, STOOL (NA,K,CL) 03/18/2016 CBC WITH DIFF 03/18/2016 LIVER (HEPATIC) PANEL 03/18/2016 Insurance Providers Payer Name Payer Address Payer Phone Subscriber Number Group Number Insured Name Patient Relationship to Insured Coverage Start Date Coverage End Date [facility] [place] [address] [place], [place] [id number] Sd Cardozo Self - patient is the insured 6 Medical (General) History Medical History History ICD Code Diabetes E11.9
--- OUTSIDE RECORDS SUMMARY | 2025-04-01 03:38 | XMS_ITS | Clinical Summary ---
Author Organization [facility] Address [address], [address] [place] [address] Care Team Providers Care Top Collar Maker Name Role Phone Alejandro Umaña MD Primary Care Provider [phone] Allergies Active Allergy Reactions Criticality Noted Date Comments Dust Mite Extract 07/19/2015 Medications loratadine (CLARITIN) 10 MG tablet Take 1 tablet by mouth daily Active Multiple Vitamins-Minera ls (THERAPEUTIC MULTIVITAMIN-IN NERALS) tablet Take 1 tablet by mouth [...] 11/27/2023 11/26/2022, 11/25/2022, 09/11/2019, Additional history exists Flu vaccine (#1) 01/14/2025 02/28/2020 COVID-19 Vaccine ( season) 2025 05/30/2023, 09/30/2020, 09/09/2020 Colonoscopy 10/31/2031 10/30/2021, 07/17/2014 Colorectal Cancer Screen [...] - 99 mg/dL 11/26/2022 5:54 AM EDT [facility] BUN 16 8 - 23 mg/dL 11/26/2022 5:54 AM EDT [facility] Creatinine 0.82 0.70 - 1.20 mg/dL 11/26/2022 5:54 AM EDT [facility] Est, Glom Filt Rate >60 >60 mL/min/1.7 3m2 11/26/2022 5:54 AM EDT [facility] Comment: These results are not intended [...] - 10.4 mg/dL 11/26/2022 5:54 AM EDT [facility] Sodium 141 135 - 144 mmol/L 11/26/2022 5:54 AM EDT [facility] Potassium 4.2 3.7 - 5.3 mmol/L 11/26/2022 5:54 AM EDT [facility] Chloride 105 98 - 107 mmol/L 11/26/2022 5:54 AM EDT [facility] CO2 26 20 - 31 mmol/L 11/26/2022 5:54 AM EDT [facility] Anion Gap 10 9 - 17 mmol/L 11/26/2022 5:54 AM EDT [facility] BLOOD SPECIMEN / Unknown 11/26/2022 5:54 AM EDT 11/26/2022 5:55 AM EDT Rosetta Gallardo DO CHEMISTRY ORDERABLES Final Resu lt [facility] [address] [place] [address], [facility] [phone] * Microalbumin, Ur (10/11/2021 3:07 PM EDT) Albumin Urine <12 <21 mg/L 10/11/2021 3:07 PM EDT [facility] Creatinine, Ur 59.2 39.0 - 259.0 mg/dL 10/11/2021 3:07 PM EDT [facility] Microalb/Ecclesiastical Worker. Ratio Can not be calculated <17 mcg/mg creat 10/11/2021 3:07 PM EDT [facility] [employer] 10/11/2021 3:07 PM EDT 10/11/2021 3:07 PM EDT Ada Akhtar CPNP URINE ORDERABLES Final R esult Performing Organization Address City/[facility]/ZIP Co de Phone Number [facility] [address] [place] [address], [facility] [phone] * Lipid Panel (10/03/2021 6:12 AM EDT) Cholesterol 193 <200 mg/dL 10/03/2021 6:12 AM EDT [facility] Comment: Cholesterol Guidelines: <200 Desirable 200-240 Borderline >240 Undesirable HDL 68 >40 mg/dL 10/03/2021 6:12 AM EDT [facility] Comment: HDL Guidelines: <40 Undesirable 40-59 Borderline >59 Desirable LDL Cholesterol 114 0 - 130 mg/dL 10/03/2021 6:12 AM EDT [facility] Comment: LDL Guidelines: <100 Desirable 100-129 Near to/above Desirable 130-159 Borderline >159 Undesirable Direct (measured) LDL and calculated LDL are not interchangeable tests. Chol/HDL Ratio 2.8 <5 10/03/2021 6:12 AM EDT [facility] Comment: Triglycerides 53 <150 mg/dL 10/03/2021 6:12 AM EDT [facility] Comment: Triglyceride Guidelines: <150 Desirable 150-199 Borderline 200-499 High >499 Very high Based on AHA Guidelines for fasting triglyceride, March 2012. 10/03/2021 6:12 AM EDT 10/03/2021 6:17 AM EDT us Hudson Tavares MD CHEMISTRY ORDERABL ES Final Result [facility] [address] [place] [address], [facility] [phone] from Last 3 Months or Most Recently Relevant to Health Maintenance Insurance [employer] Member Subscriber Plan / Payer (Ef fective 2015-Present) Name:Sd Cardozo Relation to Subscriber:Self Name:Sd Cardozo Payer ID:Not on file Type:Not on file Address: [address] [place] [phone] [employer] Member Subscriber Plan / Payer (Ef fective 2015-Present) Name:Sd Cardozo Relation to Subscriber:Self Name:Sd Cardozo Payer ID:Not on file Type:Not on file Address: [address] [place] [phone] [employer] Member Subscriber Plan / Payer (Ef fective 2015-Present) Name:Sd Cardozo Relation to Subscriber:Self Name:Sd Cardozo Payer ID:Not on file Type:Not on file Address: [address] [place] [phone] [employer] Advance Directives * Full Code (Latest Code Status on File) Date Activated Date Inactivated Comments 11/26/2022 3:41 AM 11/26/2022 7:24 PM * Full Code Date Activated Date Inactivated Comments 08/06/2016 12:55 PM 08/08/2016 11:55 AM * Full Code Date Activated Date Inactivated Comments 09/28/2013 3:25 PM 09/29/2013 8:00 PM Care Teams Top Collar Maker Relationship Specialty Start Date End Date Alejandro Umaña MD PCP - General Family Medicine 09/03/19
--- OUTSIDE RECORDS SUMMARY | 2025-04-01 03:38 | XMS_ITS | Clinical Summary ---
Author Organization [facility] Address [id number] [place] [address] Care Team Providers Care Motorcycle Deliverer Name Role Phone Linda Lozada SCRUM COACH-DIRECTOR CLINICAL OPERATIONS Primary Care Provider Allergies Active Allergy Reactions Criticality Noted Date Comments House Dust 09/04/2023 Medications glucosamine-chond roitin 500-400 mg capsule Take by mouth. Activ e loratadine (CLARITIN) 10 mg tablet Take 1 tablet (10 mg total) by mouth. Active MULTIVITAMIN (MULTIPLE VITAMINS ORAL) Take by mouth. Active blood-glucose sensor (DEXCOM G6 SENSOR) deviceIndications :Diabetes mellitus type 1, controlled, insulin dependent ([facility]) 1 each by miscellaneous route every 10 days. 10 each 4 09/18/19 23 Active blood-glucose meter,continuous (DEXCOM G6 CHILDREN'S ZOO CARETAKER) miscIndications:D iabetes mellitus type 1, controlled, insulin dependent ([facility]) 1 Device by miscellaneous route continuously. 1 each 09/18/19 23 Active blood-glucose transmitter (DEXCOM G6 TRANSMITTER) deviceIndications :Diabetes mellitus type 1, controlled, insulin dependent ([facility]) 1 Device by miscellaneous route every 3 (three) months. 1 each 09/18/19 23 Active blood-glucose meter,continuous (DEXCOM G7 CHILDREN'S ZOO CARETAKER) misc Inject 1 each under the skin every 10 days. Active AMBULATORY COMPOUNDED MEDICATIONIndicat ions:Bilateral foot pain Apply 1 Application topically every 4 (four) hours as needed (neuopathhic pain). 120 g 11 03/19/20 24 Active NovoLOG Flexpen U-100 Insulin 100 unit/mL (3 mL) insulin penIndications:Ty pe 1 diabetes mellitus with hyperglycemia ([facility]) INJECT 3-7 UNITS UNDER SKIN 4 TIMES [...] abetes mellitus type 1, controlled, insulin dependent ([facility]) 8 units in morning and 5-8 units in evening 10/27/19 25 Active tiotropium bromide 1.25 mcg/actuation mistIndications:R ecurrent productive cough Inhale 2.5 mcg in the morning. 2 puffs. 4 g 5 01/28/20 25 Active Active Problems Problem Noted Date Diagnosed [...] Encounters Date Type Department Care Team Description 01/27/2025 2:53 PM EDT - 01/27/2025 11:59 PM EDT Hospital Encounter [facility] [address] [place] [address] Recurrent productive cough Discharge Disposition: Home 01/27/2025 2:00 PM EDT Office Visit [facility] [address] [facility] [place] [address] Linda Lozada[facility] Diabetes mellitus type 1, controlled, insulin dependent ([facility]-HCC) (Primary Dx); Mixed hyperlipidemia; Encounter for screening for malignant neoplasm of prostate; Recurrent productive cough; Encounter for screening for depression 01/27/2025 Results Follow-Up [facility] [address] [place] [address] Linda Lozada[facility] X-ray chest 2 views, CBC auto differential, Comprehensive metabolic panel, Additional followed-up results: 5 from Last 3 Months Immunizations Immunization Administration [...] e alcohol) Occ. 1-2 on the weekends PHQ-2 Answer Date Recorded Total Score 0 01/27/2025 Childcare Answer Date Recorded Childcare Unknown 11/23/2018 Employment Answer Date Recorded Employment Unknown 11/23/2018 Hunger Screening Answer Date Recorded Within the past 12 months we worried whether our food would run out before we got money to buy more. Never True 01/27/2025 Within the past 12 months th e food we bought just didn't last and we didn't have money to get more. Never True 01/27/2025 Purpose - Life Answer Date Recorded Purpose and direction in life Unknown Sex and Gender Information Value Date Recorded Sex Assigned at Not on file Legal Sex Male 1:57 PM EDT Gender Identity Not on file Sexual Orientation Not on file Last Filed Vital Signs Vital Sign Reading Time Taken Comments Blood Pressure 118/76 01/27/2025 2:00 PM EDT Pulse 84 01/27/2025 2:00 PM EDT Temperature 36.4 C (97.6 F) 01/27/2025 2:00 PM EDT Respiratory Rate 15 02/13/2023 3:30 PM EDT Oxygen Saturation 98% 01/27/2025 2:00 PM EDT Inhaled Oxygen Concentration - - Weight 64.8 kg (142 lb 12.8 oz) 01/27/2025 2:00 PM EDT Height 175.3 cm (5' 9.02 ) 01/27/2025 2:00 PM ED T Body Mass Index 21.08 01/27/2025 2:00 PM EDT Plan of Treatment Upcoming Encounters Date Type Department Care Team (Late st Contact Info) Description 04/29/2025 3:00 PM EST Office Visit [facility] [address] [place] [address] Linda Lozada, SCRUM COACH-DIRECTOR CLINICAL OPERATIONS [address] [place] [address] Health Maintenance Due Date Last Done Comments Diabetic Ophthalmology Exam 1960 COVID-19 Vaccine ( season) 2025 05/30/2023, 06/03/2021, 09/30/2020, Additional history exists Influenza Vaccine 02/14/2025 03/19/2024, 02/28/2020 Diabetic Foot Exam 07/27/2025 07/27/2024, 0 07/27/2024, 03/19/2024, Additional history exists Statin Use: Diabetic 10/17/2025 10/17/2024 DTaP,Tdap and Td Vaccines (1 - Tdap) 10/26/2025 Postponed from 1981 (Patient Refused) Adult BMI Screening 01/27/2026 01/27/2025 Depression Screening 01/27/2026 01/27/2025 Tobacco Screening 01/27/2026 01/27/2025 Zoster (Shingles) Vaccine Completed 03/19/2024, Medical Devices Not on file Procedures Procedure Name Priority Date/Time Associated Diagnosis Comments XR CHEST 2 VWS Routine 01/27/2025 3:04 PM EDT Recurrent productive cough FERRITIN Routine 01/27/2025 2:13 PM EDT Diabetes mellitus type 1, controlled, insulin dependent ([facility]) PROSTATIC SPECIFIC ANTIGEN SCREEN Routine 01/27/2025 2:13 PM EDT Encounter for screening for malignant neoplasm of prostate HEMOGLOBIN A1C Routine 01/27/2025 2:13 PM EDT Diabetes mellitus type 1, controlled, insulin dependent ([facility]) MAGNESIUM Routine 01/27/2025 2:13 PM EDT Diabetes mellitus type 1, controlled, insulin dependent ([facility]) LIPID PROFILE Routine 01/27/2025 2:13 PM EDT Diabetes mellitus type 1, controlled, insulin dependent ([facility]) Mixed hyperlipidemia COMPREHENSIVE METABOLIC PANEL Routine 01/27/2025 2:13 PM EDT Diabetes mellitus type 1, controlled, insulin dependent ([facility]) CBC WITH AUTO DIFFERENTIAL Routine 01/27/2025 2:13 PM EDT Diabetes mellitus type 1, controlled, insulin dependent ([facility]) from Last 3 Months Results * X-ray chest 2 views (01/27/2025 3:04 PM EDT) Anatomical Region Laterality Modality Body, Chest N/A Computed Radiogr aphy 01/27/2025 3:12 PM EDT Narrative 01/27/2025 3:13 PM EDT STUDY: XR CHEST 2 VWS INDICATION: Recurrent productive cough. COMPARISON: None FINDINGS/IMPRESSION: * No acute cardiopulmonary process, by radiograph. * Prominent retrosternal clear space. Correlate with symptoms of COPD. Finalized by Samson Brown on 01/27/2025 3:13 PM Procedure Note Samson Brown MD - 01/27/2025 STUDY: XR CHEST 2 VWS INDICATION: Recurrent productive cough. COMPARISON: None FINDINGS/IMPRESSION: * No acute cardiopulmonary process, by radiograph. * Prominent retrosternal clear space. Correlate with symptoms of COPD. Finalized by Samson Brown on 01/27/2025 3:13 PM Linda Lozada SCRUM COACH-DIRECTOR CLINICAL OPERATIONS IMG DIAGNOSTIC IMAGING ORDERABLES Final Result * CBC auto differential (01/27/2025 2:13 PM EDT) WBC 8.5 4 - 11 x10E9/L 01/27/2025 10:09 PM EDT [facility] RBC Count 4.52 4.1 - 5.7 X10E12/L 01/27/2025 10:09 PM EDT [facility] Hemoglobin 13.9 13 - 17 g/dL 01/27/2025 10:09 PM EDT [facility] Hematocrit 41.3 39 - 50 % 01/27/2025 10:09 PM EDT [facility] MCV 91 80 - 100 fL 01/27/2025 10:09 PM EDT [facility] MCH 30.8 27 - 34 pg 01/27/2025 10:09 PM EDT [facility] MCHC 33.7 32 - 36 g/dL 01/27/2025 10:09 PM EDT [facility] RDW 13.1 11.5 - 15 % 01/27/2025 10:09 PM EDT [facility] Platelet Count 189 150 - 450 X10E9/L 01/27/2025 10:09 PM EDT [facility] MPV 8.8 7 - 12 fL 01/27/2025 10:09 PM EDT [facility] Neutrophils % 70.2 % 01/27/2025 10:09 PM EDT [facility] Lymphocytes % 19.0 % 01/27/2025 10:09 PM EDT [facility] Monocytes % 7.2 % 01/27/2025 10:09 PM EDT [facility] Eosinophils % 2.6 % 01/27/2025 10:09 PM EDT [facility] Basophils % 1.0 % 01/27/2025 10:09 PM EDT [facility] Neutrophils Absolute (A) 6.0 1.5 - 6.6 10*3/uL 01/27/2025 10:09 PM EDT [facility] Lymphocytes Absolute 1.6 1.0 - 3.5 10*3/uL 01/27/2025 10:09 PM EDT [facility] Monocytes Absolute 0.6 0.0 - 0.9 10*3/uL 01/27/2025 10:09 PM EDT [facility] Eosinophils Absolute 0.2 0.0 - 0.4 10*3/uL 01/27/2025 10:09 PM EDT [facility] Basophils Absolute 0.1 0.0 - 0.2 10*3/uL 01/27/2025 10:09 PM EDT [facility] Differential Type AUTOMATED DIFFERENTIAL 01/27/2025 10:09 PM EDT [facility] Blood Venous blood / Unknown 01/27/2025 2:13 PM EDT 01/27/2025 2:13 PM EDT us Linda Lozada SCRUM COACH-DIRECTOR CLINICAL OPERATIONS LAB BLOOD ORDERABLES F inal Result [facility] [address] [place] [address], [place] [phone] * Prostatic specific antigen screen (01/27/2025 2:13 PM EDT) PROSTATIC SPEC ANT 3.11 0.00 - 4.00 ng/mL 01/27/2025 10:34 PM EDT [facility] Comment: The method used for this test is Shelbi Rootless DXI chemiluminescent immunoassay. Values obtained by different assay methods cannot be used interchangeably. Blood Venous blood / Unknown 01/27/2025 2:13 PM EDT 01/27/2025 2:13 PM EDT us Linda Lozada [facility] LAB BLOOD ORDERABLES F inal Result [facility] [address] [place] [address], * Magnesium (01/27/2025 2:13 PM EDT) MAGNESIUM 1.9 1.8 - 2.6 mg/dL 01/27/2025 10:46 PM EDT [facility] Blood Venous blood / Unknown 01/27/2025 2:13 PM EDT 01/27/2025 2:13 PM EDT us Linda Lozada [facility] LAB BLOOD ORDERABLES F inal Result Performing Organization Address City/[facility]/ZIP Co de Phone Number [facility] [address] [place] [address], * (ABNORMAL) Hemoglobin A1c (01/27/2025 2:13 PM EDT) HEMOGLOBIN A1C 6.9(H) 4.4 - 5.6 % 01/28/2025 8:14 AM EDT [facility] Comment: ADA Guidelines Result HgbA1c Normal : less than 5.7 % Prediabetes : 5.7 % to 6.4 % Diabetes : > 6.4 % Use with caution in patients with abnormal hemoglobin variants as the half-life of red blood cells and in vivo glycation rates are affected. EST. AVERAGE GLUCOSE 151 mg/dL 01/28/2025 8:14 AM EDT [facility] Blood Venous blood / Unknown 01/27/2025 2:13 PM EDT 01/27/2025 2:13 PM EDT us Linda Lozada SCRUM COACH-DIRECTOR CLINICAL OPERATIONS LAB BLOOD ORDERABLES F inal Result [facility] [address] [place] [address], [place] [phone] * Ferritin (01/27/2025 2:13 PM EDT) FERRITIN 107 24 - 336 ng/mL 01/27/2025 10:34 PM EDT [facility] Blood Venous blood / Unknown 01/27/2025 2:13 PM EDT 01/27/2025 2:13 PM EDT us Linda Lozada SCRUM COACH-DIRECTOR CLINICAL OPERATIONS LAB BLOOD ORDERABLES F inal Result Performing Organization Address City/[facility]/ZIP Co de Phone Number [facility] [address] [place] [address], [place] [phone] * (ABNORMAL) Lipid profile (01/27/2025 2:13 PM EDT) CHOLESTEROL 143(L) 150 - 200 mg/dL 01/27/2025 10:46 PM EDT [facility] TRIGLYCERIDE 69 27 - 150 mg/dL 01/27/2025 10:46 PM EDT [facility] HDL CHOLESTEROL 69 >39 mg/dL 10:46 PM EDT [facility] Comment: HDL <40 mg/dL - High Risk HDL > or = 40mg/dL- Desirable HDL >60 mg/dL - Negative Risk LDL (CALC) 60 <130 mg/dL 01/27/2025 10:46 PM EDT [facility] Comment: LDL <100 mg/dL - Desirable LDL >160 mg/dL - High Risk CHOLESTEROL:HDL 2.1 1.0 - 5.0 5 10:46 PM EDT [facility] VERY LOW LIPOPROTEIN 14 0 - 30 mg/dL 01/27/2025 10:46 PM EDT [facility] Blood Venous blood / Unknown 01/27/2025 2:13 PM EDT 01/27/2025 2:13 PM EDT Linda Lozada SCRUM COACH-DIRECTOR CLINICAL OPERATIONS LAB BLOOD ORDERABLES F inal Result [facility] [address] [place] [address], [place] [phone] * (ABNORMAL) Comprehensive metabolic panel (01/27/2025 2:13 PM EDT) SODIUM 140 134 - 146 mmol/L 01/27/2025 10:46 PM EDT [facility] POTASSIUM 4.7 3.5 - 5.0 mmol/L 01/27/2025 10:46 PM EDT [facility] CHLORIDE 101 98 - 109 mmol/L 01/27/2025 10:46 PM EDT [facility] [place] DIOXIDE 29 22 - 32 mmol/L 01/27/2025 10:46 PM EDT [facility] ANION GAP 10 5 - 15 mmol/L 01/27/2025 10:46 PM EDT [facility] BLOOD UREA NITROGEN 18 5 - 27 mg/dL 01/27/2025 10:46 PM EDT [facility] CREATININE 0.96 0.60 - 1.30 mg/dL 01/27/2025 10:46 PM EDT [facility] Comment:METHOD TRACEABLE TO IDMS STANDARD GLUCOSE 177(H) 65 - 99 mg/dL 01/27/2025 10:46 PM EDT [facility] CALCIUM 9.3 8.5 - 10.5 mg/dL 01/27/2025 10:46 PM EDT [facility] TOTAL PROTEIN 7.0 6.0 - 8.0 g/dL 01/27/2025 10:46 PM EDT [facility] ALBUMIN 4.2 3.2 - 5.3 g/dL 01/27/2025 10:46 PM EDT [facility] ALKALINE PHOSPHATASE 86 39 - 130 U/L 01/27/2025 10:46 PM EDT [facility] AST 22 <=41 U/L 01/27/2025 10:46 PM EDT [facility] ALT 27 <=40 U/L 01/27/2025 10:46 PM EDT [facility] BILIRUBIN,TOTAL 0.4 0.3 - 1.2 mg/dL 01/27/2025 10:46 PM EDT [facility] EGFR Non-Race Dependent 89 >=60 ml/min/1.7 3sq.m 01/27/2025 10:46 PM EDT [facility] Comment: Reported eGFR is based on the CKD-EPI 2020 equation that does not use a race coefficient. Blood Venous blood / Unknown 01/27/2025 2:13 PM EDT 01/27/2025 2:13 PM EDT Linda Lozada APRN-DIRECTOR CLINICAL OPERATIONS LAB BLOOD ORDERABLES F inal Result [facility] [address] [place] [address], from Last 3 Months Insurance [employer] Care Teams Motorcycle Deliverer Relationship Specialty Start Date End Date Linda Lozada APRN-DIRECTOR CLINICAL OPERATIONS [address] [place] [address] (work) PCP - General Family Medicine 09/17/22
--- OUTSIDE RECORDS SUMMARY | 2025-04-01 03:38 | XMS_ITS | Encounter Summary ---
Author Organization [facility] Address [address] [place] [address] Care Team Providers Care Legal Stenographer Name Role Phone Alejandro Umaña MD Primary Care Provider [phone] Alejandro Umaña MD Unavailable [phone] Encounter Details Date Type Department Care Team (Late st Contact Info) Description 12/17/2023 Clinisync Result Encounter [facility] External Department [place] [address] [place] [address] Social History Tobacco Use Types Packs/Day Years [...] on filedocumented in this encounter Care Teams Legal Stenographer Relationship Specialty Start Date [place] [address] [place] [address] PCP - General Family Medicine 11/27/22 [place] [address] [place] [address] PCP - Medical [place] [employer] 06/16/15 06/15/99 documented as of this encounter
--- OUTSIDE RECORDS SUMMARY | 2025-04-01 03:38 | XMS_ITS | Encounter Summary ---
Author Organization [facility] Address [address] [facility], [address] [place] [address] Care Team Providers Care Anglesmith Name Role Phone Alejandro Umaña MD Primary Care Provider Reason for Referral * Imaging (Routine) - Closed Specialty Diagnoses / Procedures Referred By Contac t Referred To Contact Radiology Diagnoses Intractable tension-type headache, unspecified chronicity pattern Procedures CT HEAD [place] [address] [place] [address] Phone: tel: fax: Referral ID Status Reason Start Date Expiration Date Visits Re quested Visits Authorized [id number] Closed 12/16/2023 01/30/2024 1 1 Encounter Details Date Type Department Care Team (Latest Contact Info) Description 12/16/2023 Transcribe Orders [facility] [address] [place], [place] [id number] [place]jandro [place]ña [place] [address] [place] [address] Intractable tension-type headache, unspecified chronicity pattern [...] pattern documented in this encounter Care Teams Anglesmith Relationship Specialty Start Date End Date Alejandro Umaña MD PCP - General Family Medicine 09/03/19 documented as of this encounter
--- OUTSIDE RECORDS SUMMARY | 2025-04-01 03:38 | XMS_ITS | Encounter Summary ---
Author Organization [facility] Address [address] [place] [address] Care Team Providers Care Certified Medical Biller Name Role Phone Alejandro Umaña MD Primary Care Provider [phone] Alejandro Umaña MD Unavailable [phone] Encounter Details Date Type Department Care Team (Late st Contact Info) Description 06/05/2023 Abstract [facility] [address] [address] [place] [address] [id number] Social History Tobacco Use Types Packs/Day Years [...] on filedocumented in this encounter Care Teams Certified Medical Biller Relationship Specialty Start Date [place] [address] [address] PCP - General Family Medicine 11/27/22 [place] [address] [id number] PCP - Medical [place] [employer] 06/16/15 06/15/99 documented as of this encounter
--- OUTSIDE RECORDS SUMMARY | 2025-04-01 03:38 | XMS_ITS | Encounter Summary ---
Author Organization [facility] Address [address] [place] [address] Care Team Providers Care Personal Banker Name Role Phone Alejandro Umaña MD Primary Care Provider [phone] Alejandro Umaña MD Unavailable [phone] Encounter Details Date Type Department Care Team (Late st Contact Info) Description 12/25/2022 Abstract [facility] [address] [address] [place] [address] [address] Social History Tobacco Use Types Packs/Day Years [...] on filedocumented in this encounter Care Teams Personal Banker Relationship Specialty Start Date [place] [address] [address] PCP - General Family Medicine 11/27/22 [place] [address] [address] PCP - Medical [place] [employer] 06/16/15 06/15/99 documented as of this encounter
--- OUTSIDE RECORDS SUMMARY | 2025-04-01 03:38 | XMS_ITS | Encounter Summary ---
Author Organization [facility] Address [id number] [place] [address] Care Team Providers Care Pressurised Container Filler Name Role Phone Linda Lozada [facility] Primary Care Provider Encounter Details Date Type Department Care Team (Late st Contact Info) Description 01/27/2025 Results Follow-Up [facility] [address] [place] [address] Linda Lozada, [facility] [address] [place] [address] X-ray chest 2 views, CBC auto differential, Comprehensive metabolic panel, Additional followed-up results: 5 Social History Tobacco Use Types Packs/Day Years Used Date Smoking Tobacco: Never Passive Smoke Exposure: Never Smokeless Tobacco: Never Alcohol Use Standard [...] on file documented as of this encounter Progress Notes * Radha Vasquez CMA - 01/27/2025 7:09 PM EDT Mychart read documented in this encounter Plan of Treatment Upcoming Encounters Date Type Department Care Team (Late st Contact Info) Description 04/29/2025 3:00 PM EST Office Visit [facility] [address] [place] [address] Linda Lozada, LENS DOTTER-[facility] DR[facility] [address] [place] [address] documented as of this encounter Visit Diagnoses Not on filedocumented in this encounter Additional Health Concerns Assessment Noted Time PHQ-9 Depression Total Score: 0 01/28/20 25 7:00 AM EDT documented as of this encounter Care Teams Pressurised Container Filler Relationship Specialty Start Date End Date Linda Lozada, LENS DOTTER[facility] DRIVER [address] [place] [address] PCP - General Family Medicine 09/17/22 documented as of this encounter
--- OUTSIDE RECORDS SUMMARY | 2025-04-01 03:38 | XMS_ITS | Encounter Summary ---
Author Organization [facility] Address [address] [place] [address] Care Team Providers Care Nutrition Consultant Name Role Phone Alejandro Umaña MD Primary Care Provider [phone] Alejandro Umaña MD Unavailable [phone] Encounter Details Date Type Department Care Team (Late st Contact Info) Description 03/24/2024 Orders Only [facility] [address] [place] [address] [place] [address] [place] [address] Social History Tobacco Use Types Packs/Day Years [...] on filedocumented in this encounter Care Teams Nutrition Consultant Relationship Specialty Start Date [place] [address] [place] [address] PCP - General Family Medicine 11/27/22 [place] [address] [place] [address] PCP - Medical [place] [employer] 06/16/15 06/15/99 documented as of this encounter
--- NOTE | 2025-04-01 03:54 | ED.ABDPAIN1 ---
HPI - Abdominal Pain General Chief Complaint: Abdominal Pain Stated Complaint: ABDOMINAL PAIN, DIZZINESS, BLOOD IN STOOL Time Seen by Provider: 04/01/25 03:26 Source: patient Mode of arrival: walk-in Limitations: no limitations History of Present Illness HPI narrative: Right lower quadrant abdominal pain and dark stool with dizziness this morning. This 64-year-old male who is seen on March 27 for right lower quadrant abdominal pain after being seen by his urologist and having an ultrasound of the right kidney and KUB ordered which were negative -also a negative workup in this emergency department including a CT scan presents for evaluation ongoing right lower quadrant abdominal pain with nausea and dark tarry stool this morning. The patient states he got up from bed this morning and went to the kitchen to get something to drink because his sugar was high. He then felt nauseated and diaphoretic. He felt the urge to have a bowel movement and went to the bathroom and had a large amount of black tarry stool. He then went back to the kitchen to get something to drink and felt another to have a bowel movement and had an additional episode of black tarry stool. He then woke his up to come to the emergency department. He states he had a colonoscopy approximately 2 years ago. He thinks he has had some mild weight loss but nothing major. He is not having any urinary symptoms. He denies any chest pain or shortness of breath. Related Data Allergies Allergy/AdvReac Type Severity Reaction Status Date / Time No Known Drug Allergies Allergy Verified 04/01/25 03:34 Review of Systems ROS Status of ROS 10 or more systems reviewed and unremarkable except as noted in history and below PFSH PFSH Social History Little interest or pleasure in doing things: not at all Feeling down, depressed, or hopeless: not at all Exam Narrative Exam Narrative: Vital signs and Nursing Notes reviewed: Pt is afebrile with normal pulse, normal blood pressure, he is not hypoxic with pulse ox of 99% on room air General: Awake, alert, oriented, slightly anxious, thin adult male, no acute distress, lying comfortably on the stretcher HEENT: Normocephalic atraumatic, mucous membranes are moist and pink, eyes are clear, normal conjunctiva, vision is grossly intact, posterior pharynx is normal in appearance. Chest: Lungs are clear to auscultation with good air entry, there is no wheezing rhonchi or rales appreciated no accessory muscle use, patient is speaking in complete sentences-no chest wall tenderness to palpation CVS: Regular rate and rhythm S1-S2, no murmurs rubs or gallops, pulses are brisk and equal bilaterally ABD: Soft, nondistended, tenderness in the right lower quadrant with mild voluntary guarding, the remainder of the abdominal exam is benign, no epigastric, right upper quadrant or left upper quadrant tenderness, no pulsatile masses appreciated femoral pulses are brisk and equal negative Rovsing sign, rectal exam was performed with black tarry stool in the rectal vault, no masses appreciated Extremities: Moving all extremities, no lower extremity tenderness or swelling noted, negative Homans' sign, pulses are brisk and equal bilaterally Skin: Normal in appearance without rash,pallor, petechiae or purpura Neuro: No focal deficits Constitutional Vital Signs, click to edit/add: Last Vital Signs Temp 98.6 F 04/01/25 03:29 Pulse 100 H 04/01/25 09:20 Resp 16 04/01/25 09:20 BP 113/60 04/01/25 09:00 Pulse Ox 96 04/01/25 08:50 O2 Del Method Room Air 04/01/25 03:29 Course Vital Signs Vital signs: Vital Signs Temperature 98.6 F 04/01/25 03:29 Pulse Rate 66 04/01/25 03:29 Respiratory Rate 18 04/01/25 03:29 Blood Pressure 118/69 04/01/25 03:29 Pulse Oximetry 99 04/01/25 03:29 Oxygen Delivery Method Room Air 04/01/25 03:29 Temperature 98.6 F 04/01/25 03:29 Pulse Rate 100 H 04/01/25 09:20 Respiratory Rate 16 04/01/25 09:20 Blood Pressure 113/60 04/01/25 09:00 Pulse Oximetry 96 04/01/25 08:50 Oxygen Delivery Method Room Air 04/01/25 03:29 MDM - Abdominal Pain MDM Narrative Medical decision making narrative: This 64-year-old male presents for evaluation of ongoing right lower quadrant abdominal pain with dizziness and black tarry stools this morning. The patient was seen here on March 27. At that time he complained of 2 weeks of intermittent right lower quadrant abdominal pain and had been seen by his urologist with an ultrasound of his right kidney and KUB ordered to rule out kidney stone as the etiology of his lower abdominal pain. His labs and CT scan of his abdomen pelvis were normal at that time. A CT scan of his brain was also ordered due to the dizziness. He presents for evaluation today of ongoing right lower quadrant abdominal pain and this morning upon awakening becoming dizzy, lightheaded, diaphoretic and having black tarry stool. His vital signs are stable. EKG done upon arrival for the dizziness was a normal sinus rhythm. An IV was placed and he was medicated with IV fluids, Zofran for his nausea, Pepcid and Protonix. Routine labs were ordered. He has a white count of 12.1 and hemoglobin of 10.2. His hemoglobin was 13.6 on March 27, 5 days ago. He has a normal troponin of 16.7. Glucose is elevated at 347. His electrolyte panel is normal with an elevated BUN today of 51 and creatinine of 0.88. His BUN was 21.5 days ago with a creatinine of 0.97. CT scan was not repeated as it was recently performed. I explained to the patient at the time of his discharge on Friday morning that he would benefit from a colonoscopy. He was reluctant to be agreeable to this because he states he had a colonoscopy a year ago. He now recalls that his colonoscopy was 2 years ago. There are currently no beds available at [facility]. Hemoglobin dropped to 9.2. He otherwise remains hemodynamically stable. Patient and request transfer to [facility] where he had his last colonoscopy. Transfer center spoke to Dr Martinez who is agreeable to seeing him in consult. Case then discussed with the hospitalist, Dr Gallardo and he is accepted for transfer to the progressive floor at [facility]. Differential Diagnosis Differential diagnosis: Likely abdominal pain and diverticulitis Medical Records Attestation: I reviewed the patient's medical records. Lab Data Attestation: I reviewed the patient's lab results. Labs: Lab Results 04/01/25 04/01/25 04/01/25 Range/Units 03:40 04:24 05:28 WBC 12.1 H 15.3 H (4.0-11.0) 10^3/uL RBC 3.26 L 2.99 L (4.70-6.10) 10^6/uL Hgb 10.2 L 9.2 L (14.0-18.0) g/dL Hct 30.4 L 27.9 L (42.0-54.0) % MCV 93.3 93.3 (80.0-94.0) fL MCH 31.3 30.8 (25.9-34.0) pg MCHC 33.6 33.0 (29.9-35.2) g/dL RDW 12.3 12.2 (11.0-15.0) % Plt Count 223 187 (150-450) 10^3/uL MPV 10.3 10.2 (9.5-13.5) fL Neut % (Auto) 69.8 84.3 H (43.0-75.0) % Lymph % (Auto) 14.1 L 8.9 L (20.5-60.0) % [place]ockley % (Auto) 6.9 4.3 (1.7-12.0) % Eos % (Auto) 7.2 H 1.5 (0.9-7.0) % Baso % (Auto) 0.8 0.5 (0.2-2.0) % Neut # (Auto) 8.5 H 12.9 H (1.4-6.5) 10^3/uL Lymph # (Auto) 1.7 1.4 (1.2-3.8) 10^3/uL Hockley # (Auto) 0.8 0.7 (0.3-0.8) 10^3/uL Eos # (Auto) 0.9 H 0.2 (0.0-0.7) 10^3/uL Baso # (Auto) 0.1 0.1 (0.0-0.1) 10^3/uL Abs Immat Gran (auto) 0.15 H 0.07 H (0.00-0.03) 10^3/uL Imm/Tot Granulo (auto) 1.2 H 0.5 (0.0-0.5) % Sodium 140 (136-145) mmol/L Potassium 4.6 (3.5-5.1) mmol/L Chloride 104 (98-107) mmol/L Carbon Dioxide 29.4 (21.0-32.0) mmol/L Anion Gap 11.2 BUN 51.0 H (7.0-18.0) mg/dL Creatinine 0.88 (0.70-1.30) mg/dL Est GFR ( Amer) >60 (>=60 mL/min/1.73m^2) Est GFR (Non-Af Amer) >60 (>=60 mL/min/1.73m^2) BUN/Creatinine Ratio 58.0 Glucose 347 H (74-106) mg/dL Calcium 8.3 L (8.5-10.1) mg/dL Total Bilirubin 0.3 (0.2-1.0) mg/dL AST 18 (15-37) U/L ALT 37 (16-63) U/L Alkaline Phosphatase 85 (46-116) U/L Troponin I High Sens 16.7 (4.0-76.1) pg/mL Total Protein 6.3 L (6.4-8.2) g/dL Albumin 3.2 L (3.4-5.0) g/dL Globulin 3.1 g/dL Albumin/Globulin Ratio 1.0 Stool Occult Blood Positive A Blood Type O Positive Antibody Screen Negative Imaging Data CT scan - abdomen: Radiologist's impression: CT scan of the abdomen pelvis from 03/27/2025; impression no acute inflammatory process no bowel obstruction or perforation, no acute appendicitis colitis or diverticulitis ECG Data Attestation: I personally reviewed and interpreted this ECG as follows: (Belcher rhythm at 62 bpm, short RI interval at 116 ms, normal axis, no acute ST segment elevation or T wave inversion) Critical Care Time Critical Care Time Critical Care Time: Yes Total Critical Care Time: 35 Attestation: Due to this patient's presentation with GI bleeding and the high probability of sudden and clinically significant deterioration in his condition he required the highest level of my preparedness to intervene urgently. I provided critical care time including documentation time, medication orders and management, reevaluation, vital sign assessment, ordering and reviewing of lab test, consultation with transferring physicians. Aggregate critical care time is 35 minutes including only time during which I was engaged in work directly due to his care Discharge Plan Discharge Chief Complaint: Abdominal Pain Clinical Impression: Abdominal pain, RLQ, GI bleed, Anemia due to gastrointestinal blood loss Patient Disposition: [facility] Time of Disposition Decision: 06:16 Condition: Fair Mode of Transportation: EMS Discharge Date/Time: 04/01/25 09:40
[2025-04-01 04:04] LABS: Hematocrit 30.4 % (42.0-54.0); Hemoglobin 10.2 g/dL (14.0-18.0); Immature Granulocytes Abs Auto 0.15 10^3/uL (0.00-0.03); Immature Granulocytes Pct Auto 1.2 % (0.0-0.5); Lymphocytes Absolute Auto 1.7 10^3/uL (1.2-3.8); Mean Corpuscular HGB Conc 33.6 g/dL (29.9-35.2); Mean Corpuscular Hemoglobin 31.3 pg (25.9-34.0); Mean Corpuscular Volume 93.3 fL (80.0-94.0); Platelet Count 223 10^3/uL (150-450); Red Blood Count 3.26 10^6/uL (4.70-6.10); White Blood Count 12.1 10^3/uL (4.0-11.0)
[2025-04-01] MEDS: PANTOPRAZOLE SODIUM 40 MG VIAL IV (04:13)
[2025-04-01] MEDS: FAMOTIDINE/PF 20 MG/2 ML VIAL IV (04:13)
[2025-04-01] MEDS: 0.9 % SODIUM CHLORIDE 1,000 ML 1000 ML IV (04:13)
[2025-04-01 04:16] LABS: Alanine Aminotransferase 37 U/L (16-63); Albumin Globulin Ratio 1.0; Albumin Level 3.2 g/dL (3.4-5.0); Alkaline Phosphatase 85 U/L (46-116); Anion Gap 11.2; Aspartate Amino Transferase 18 U/L (15-37); Blood Urea Nitrogen 51.0 mg/dL (7.0-18.0); Calcium 8.3 mg/dL (8.5-10.1); Carbon Dioxide 29.4 mmol/L (21.0-32.0); Chloride 104 mmol/L (98-107); Estimated GFR (African America >60 (>=60 mL/min/1.73m^2); Estimated GFR (Non-African Ame >60 (>=60 mL/min/1.73m^2); Globulin 3.1 g/dL; Glucose 347 mg/dL (74-106); Potassium 4.6 mmol/L (3.5-5.1); Sodium 140 mmol/L (136-145); Total Protein 6.3 g/dL (6.4-8.2)
[2025-04-01] MEDS: 0.9 % SODIUM CHLORIDE 1,000 ML 125 ML IV (05:37)
[2025-04-01 05:49] LABS: Hematocrit 27.9 % (42.0-54.0); Hemoglobin 9.2 g/dL (14.0-18.0); Immature Granulocytes Abs Auto 0.07 10^3/uL (0.00-0.03); Immature Granulocytes Pct Auto 0.5 % (0.0-0.5); Lymphocytes Absolute Auto 1.4 10^3/uL (1.2-3.8); Mean Corpuscular HGB Conc 33.0 g/dL (29.9-35.2); Mean Corpuscular Hemoglobin 30.8 pg (25.9-34.0); Mean Corpuscular Volume 93.3 fL (80.0-94.0); Platelet Count 187 10^3/uL (150-450); Red Blood Count 2.99 10^6/uL (4.70-6.10); White Blood Count 15.3 10^3/uL (4.0-11.0)
--- NOTE | 2025-04-01 08:14 | PC.NURSE ---
Patient report given to CARLOS Lewis at [facility] at 08:10.
== END 2025-04-01 09:40 | disposition short-term general hospital (02) ==
PROVIDERS: Emergency Provider Emergency Medicine; PCP Family Medicine
DX: K92.2 Gastrointestinal hemorrhage, unspecified (principal); D50.0 Iron deficiency anemia secondary to blood loss (chronic); R10.31 Right lower quadrant pain
CPT/HCPCS: 36415; 80053; 84484; 85025; 86850; 86900; 86901; 93005; 96361; 96374; 96375; 99285; G0328; J2405; J3490